=== PATIENT | female | born 1945 | race Caucasian/White ===

== ENCOUNTER → 2024-06-13 | Outpatient (CLI) | payer MEDICARE, SELFPAY | END | disposition home or self-care (01) | LOC: PSN 10:35 | PROVIDERS: PCP Family Medicine; Referring Provider Internal Medicine Cardiovascular Disease; Visit Provider Internal Medicine Cardiovascular Disease | DX: I49.49 Other premature depolarization (principal) | CPT/HCPCS: 93225; 93226 ==

== ENCOUNTER 2024-06-26 10:58 | Inpatient (IN) | payer MEDICARE, OTHER, SELFPAY ==
[2024-06-26] VITALS (14 sets, daily range): BP systolic 80–177; BP diastolic 64–94; PULSE 36–101; RESP 11–24; TEMP 36–36.9; O2SAT 92–99; BMI 22.5; BMI 22.3
--- NOTE | 2024-06-26 11:23 | EKG12_ITS ---
Test Reason : N/V/D Blood Pressure : */* mmHG Vent. Rate : 90 BPM Atrial Rate : * BPM P-R Int : * ms QRS Dur : 86 ms QT Int : 370 ms P-R-T Axes : * 30 224 degrees QTcB Int : 452 ms Atrial fibrillation Abnormal ECG Confirmed by LESLIE CELIS, SHAHLA ([id number]), electronic news gathering editor HERIBERTO NAPOLES ([id number]) on 06/27/2024 1:27:46 PM Referred By: Confirmed By: SHAHLA NELSON MD
[2024-06-26 11:33] LABS: Absolute Lymphocyte Count 0.99 X10^3/uL (0.83-4.51); Absolute Neutrophil Count 16.5 X10^3/uL (2.0-7.7); Basophil# 0.04 X10^3/uL; Basophil% 0.2 % (0-1); Hematocrit 35.7 % (37-47); Hemoglobin 11.9 g/dL (12.0-15.0); Lymphocyte # 0.99 X10^3/ul (0.83-4.51); Lymphocyte % 5.3 % (19-41); Mean Corp Hgb Conc 33.3 g/dL (32-36); Mean Corpuscular Hgb 29.4 pg (27.0-32.0); Mean Corpuscular Volume 88.1 fL (81-99); Mean Platelet Vol. 10.4 fl (6.2-12.0); Monocyte# 1.02 X10^3/uL; Monocyte% 5.5 % (0-10); NRBC Flagged by Analyzer 0 % (0-5); Neutrophil # 16.51 X10^3/uL (2.7-7.7); Neutrophil % 88.2 % (47-70); Platelet Count 479 K/mm3 (150-450); RBC Distribution Width CV 13.5 % (11.6-14.6); RBC Distribution Width SD 43.8 fl (35.1-43.9); Red Blood Count 4.05 M/mm3 (4.2-5.4); White Blood Count 18.7 K/mm3 (4.4-11.0)
[2024-06-26] MEDS: 0.9% Normal Saline (1000mL) 1,000 ML 999 ML IV ×2 (11:40→12:53)
[2024-06-26 11:46] LABS: Prothrombin Time (Protime)PT. 13.5 SECONDS (11.7-14.9)
[2024-06-26 11:47] LABS: Partial Thromboplast Time 23.8 Seconds (24.1-36.2)
[2024-06-26 11:55] LABS: ALB/GLOB Ratio 1.2 RATIO (0.9-2.4); AST(SGOT) 32 U/L (<=31); Alanine Aminotransfer ALT/SGPT 16 U/L (<=34); Albumin, Serum 3.9 g/dL (3.4-4.8); Alkaline Phosphatase 92 U/L (35-104); Anion Gap 14 (5-15); BUN 55 mg/dL (4-19); BUN/Creat Ratio 37.6 RATIO (10-20); Calcium,Total 11.7 mg/dL (7.6-11.0); Carbon Dioxide 25.9 mmol/L (21.0-32.0); Chloride 94 mmol/L (98-108); Creatinine, Serum 1.47 mg/dL (0.70-1.20); EST Glomerular Filtration Rate 36 (>60); Estimated Creatinine Clearance 28.38 ml/min (50-250); Globulin 3.4 g/dL (2.2-4.2); Glucose 187 mg/dL (70-99); Lipase 29 U/L (13-75); Potassium 3.4 mmol/L (3.3-5.1); Protein, Total 7.4 g/dL (5.9-8.4); Sodium Level 134 mmol/L (133-145); Total Bilirubin 0.79 mg/dL (0.00-1.30)
--- NOTE | 2024-06-26 11:55 | RAD_ITS ---
PROCEDURE: CHEST PA AND LATERAL 06/26/2024 REASON FOR EXAM: N/V Nausea. Vomiting. TECHNIQUE: Frontal and lateral views of the chest. COMPARISON: None FINDINGS: Cardiac silhouette upper limits of normal for size. No infiltrates. No pleural effusions. No pneumothorax. Mild thoracic spinal dextroscoliosis. No acute osseous abnormality seen. RAD/Chest PA and Lateral IMPRESSION: No radiographic evidence of active cardiopulmonary disease. Reading Location: [facility]
[2024-06-26 11:59] LABS: Troponin T High Sensitivity 87 ng/L (<=14)
--- NOTE | 2024-06-26 12:13 | CT_ITS ---
PROCEDURE: ABDOMEN/PELVIS W IV CONT ONLY 06/26/2024 REASON FOR EXAM: N/V Dehydration. TECHNIQUE: Abdomen and pelvis CT with intravenous contrast. Coronal and Sagittal reconstruction series were provided. PATIENT PREPARATION: Per protocol ORAL CONTRAST TYPE: None. CONTRAST: Isovue-300 VOLUME: 100 mL One or more dose reduction techniques were used (e.g., Automated exposure control, adjustment of the mA and/or kV according to patient size, use of iterative reconstruction technique. RADIATION DOSE SUMMARY: CTDlvol: 11.5 mGy DLP: 429.75 mGycm COMPARISON: None FINDINGS: Lung bases: Minimal linear atelectasis at the left lung base. Coronary artery calcification. Liver: Diffuse fatty infiltration. Gallbladder: Unremarkable Spleen: Normal size. Pancreas: Normal size without evidence of mass surrounding inflammation or ductal dilation. Adrenals: Unremarkable Kidneys: Punctate nonobstructive calculus in the upper pole calyx of the left kidney. Bladder: Unremarkable Reproductive Organs: Enlarged fibroid uterus. Bowel: Fecal impaction in the rectosigmoid colon. Appendix: The appendix is not identified. There is no inflammatory process identified in the right lower quadrant to suggest appendicitis. Lymph nodes: Unremarkable. Vasculature: Mild diffuse atherosclerotic calcifications are noted. There is evidence of a 4.5 cm by 3.8 cm partially calcified hypodensity in the right common femoral artery. This may represent an aneurysm. Clinical correlation recommended. Peritoneum / Retroperitoneum: Unremarkable Bones: Mild changes of the spine. CT/Abdomen/Pelvis W IV Cont ONLY IMPRESSION: Fecal impaction in the rectosigmoid colon. 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 Fecal impaction in the rectum. Soft tissue density seen in the region of the perineum. Questionable rectal prolapse. Clinical correlation recommended. Reading Location: [place] [address]
[2024-06-26 12:27] LABS: Lactic Acid 3.6 mmol/L (0.0-2.0)
[2024-06-26 13:17] LABS: Bacteria 0 SEEN /hpf (None Seen); Mucous, Urine 0 SEEN /hpf (<or=2+); Red Blood Cells-Urine 0 SEEN /hpf (0-5); Squamous Epithelial Cells - UA 0 SEEN /hpf (5-10); White Blood Cells 0 SEEN /hpf (0-5)
[2024-06-26 13:44] LABS: Color, Urine Yellow (Yellow); Glucose, Dipstick Normal (Normal); Ketone-Dipstick Negative (Negative); Leukocyte Esterase-Dipstick Negative /ul (Negative); Nitrite-Dipstick Negative (Negative); Occult Blood-Urine Negative /ul (Negative); Protein-Dipstick 30 mg/dl (Negative); Urine Bilirubin Dipstick Negative (Negative); Urine Clarity Clear (Clear); Urine Urobilinogen Normal (Normal)
--- NOTE | 2024-06-26 13:53 | EX.ED.DYSGE1 ---
HPI History of Present Illness Chief Complaint: Nausea/Vomiting Narrative Narrative: Patient is a 78-year-old female with past medical history of venous insufficiency, hyperlipidemia, GERD, diabetes who presented to the emergency department the chief complaint of abdominal pain. According to the patient's family member at bedside for the last several weeks to months she has had off and on appetite. He states that some days she will and eat other days she will not. He states that recently she was given a bowel prep. She states that she thought she cleaned out with this as she was having good bowel movements. He states that recently again she developed nausea and loss of appetite with abdominal pain therefore he brought her here for further evaluation management. [facility] Medical History Disorder of bone, unspecified Unintentional weight loss Fatigue White coat syndrome with hypertension Venous (peripheral) insufficiency Vasomotor rhinitis Unspecified essential hypertension Unspecified constipation Retinal hemorrhage Retinal edema Renal cyst Nonproliferative diabetic retinopathy of both eyes Laryngospasm Internal hemorrhoids without mention of complication Hyperlipidemia LDL goal <100 Hearing aid worn External hemorrhoids without mention of complication Esophageal reflux disease Diabetes mellitus with macular edema, both eyes Arthritis of both knees Aortic ejection murmur Home Medications ?Medication ?Instructions ?Recorded ?Last Taken ?Type aflibercept 2 mg/0.05 mL 2 mg intravitreal ONCE 05/17/24 Unknown History intravitreal solution for injection albuterol sulfate 90 mcg/actuation 2 puff inhalation Q4-6H PRN 05/17/24 Unknown History aerosol inhaler atorvastatin 20 mg tablet 20 mg PO QHS 05/17/24 Unknown History calcium carbonate-vitamin tab PO BID 05/17/24 Unknown History D2-minerals tablet docusate sodium 100 mg capsule 100 mg PO BID 05/17/24 Unknown History epinephrine 0.3 mg/0.3 mL 0.3 mg IM Q5-15M PRN 05/17/24 Unknown History injection, auto-injector fluticasone propionate 50 2 spray intranasal QDAY 05/17/24 Unknown History mcg/actuation nasal spray,suspension (Allergy Relief (fluticasone)) losartan 100 mg tablet 100 mg PO QDAY 05/17/24 Unknown History metformin 500 mg tablet 1,000 mg PO BID 05/17/24 Unknown History psyllium seed (sugar) oral powder 1 tbsp PO BID 05/17/24 Unknown History (Fiber Therapy (psyllium seed-sucrose) oral powder) metoprolol succinate 50 mg 50 mg PO QDAY #90 tabs 05/25/24 Unknown Rx tablet,extended release 24 hr amlodipine 2.5 mg tablet 2.5 mg PO QDAY #30 tabs 06/06/24 Unknown Rx hydrochlorothiazide 12.5 mg capsule 12.5 mg PO DAILY 06/26/24 Unknown History metoprolol succinate 25 mg 25 mg PO DAILY 06/26/24 Unknown History tablet,extended release 24 hr ondansetron HCl 4 mg tablet 4 mg PO Q8H PRN PRN nausea/vomiting 06/26/24 Unknown History Allergy/AdvReac Type Severity Reaction Status Date / Time lisinopril Allergy Severe Angioedema Verified 06/26/24 11:04 penicillin G Allergy Unknown PT UNSURE Verified 06/26/24 11:04 OF REACTION Sulfa (Sulfonamide Allergy Unknown PT UNSURE Verified 06/26/24 11:04 Antibiotics) OF REACTION doxycycline AdvReac Intermediate Nausea Verified 06/26/24 11:04 prednisone AdvReac Mild Other Verified 06/26/24 11:04 Family History Mother Stomach ulcer Father CAD (coronary artery disease) Emphysema, unspecified Grandmother Diabetes Aunt Diabetes Uncle Diabetes Surgical History History of surgical procedure on eye proper using laser History of tonsillectomy History of colonoscopy History of cataract extraction Social History Smoking Status: Never smoker alcohol intake: never substance use type: does not use ROS ROS ED ROS Narrative Constitutional: Denies fevers, chills, headaches, lightness, dizziness Eyes: Denies change in vision double vision blurry vision Cardiovascular: Denies chest pain Respiratory: Denies shortness of breath Abdomen: Complains of abdominal pain and nausea as noted above : Denies any urinary symptoms Neurological: Denies numbness, weakness, tingling Musculoskeletal: Denies back pain Skin: Denies any rashes or lesions EXAM Physical Exam Narrative Exam Narrative: General: Patient was lying in bed rest comfortably did not appear to be in acute distress Head: Atraumatic, normocephalic Eyes: PERRL bilaterally, EOMI bilateral, no conjunctival injection noted Neck: Soft, supple, trachea midline Cardiovascular: Regular rate and rhythm no murmurs gallops rubs noted Respiratory: Clear to auscultation bilaterally no rales rhonchi or wheezes noted Abdomen: Soft, nondistended, diffuse tenderness to palpation no rebound or guarding on exam Extremities: +5/5 strength noted in the bilateral upper and lower extremities Neurological: Patient following commands that she was at [facility] years 2024 Skin: Warm, dry, tact no rashes or lesions noted Const Vital Signs: 06/26/24 11:00 06/26/24 11:23 06/26/24 12:29 Temperature 96.8 F L Temperature Source Temporal Pulse Rate 36 L 101 H 95 Respiratory Rate 20 H 19 H 12 Blood Pressure 80/64 L 123/66 H Blood Pressure Mean 69 85 Pulse Ox 99 97 98 Oxygen Delivery Method Room Air Room Air 06/26/24 12:30 06/26/24 12:45 06/26/24 13:00 Temperature Temperature Source Pulse Rate 94 94 97 Respiratory Rate 11 L 19 H 24 H Blood Pressure 113/94 H 136/65 H 109/91 H Blood Pressure Mean 101 86 97 Pulse Ox 98 96 95 Oxygen Delivery Method Room Air 06/26/24 13:15 06/26/24 13:16 06/26/24 14:29 Temperature 97.9 F Temperature Source Oral Pulse Rate 88 92 81 Respiratory Rate 16 18 18 Blood Pressure 140/78 H 149/75 H Blood Pressure Mean 97 99 Pulse Ox 98 96 95 Oxygen Delivery Method Room Air Room Air MDM MDM MDM Narrative Medical decision making narrative: Patient is a 78-year-old female who presented to the emergency department chief complaint abdominal pain nausea and concern for dehydration. On the differential diagnose includes but not limited to bowel obstruction, pancreatitis, diverticulitis, tendinitis, constipation. Once workup is obtained reviewed she will be reevaluated. Patient CBC was significant leukocytosis of 18,000 and, patient's hemoglobin 11.9, platelet count was 479. Patient INR normal at 1, PT of 13.5. Patient sodium normal 134, [place] 3.4, creatinine was elevated of 1.47. Patient's lactic acid elevated 3.6, calcium elevated 11.7 with ionized calcium high at 1.40. Patient AST and ALT were 32 and 16 respectively, troponin was 87 with a delta troponin obtained at 78, EKG was reviewed and showed atrial fibrillation with a rate of 90 bpm. Patient is not on any blood thinning medications, lipase normal at 29, urinalysis reviewed showed no evidence of infection. Patient chest x-ray reviewed by myself by radiology which showed no acute cardiopulmonary processes. 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 Fecal impaction in the rectum soft tissue density seen in the region of the perineum questionable rectal prolapse clinical correlation recommended. Did perform rectal exam patient has soft stool noted in the rectal vault no concern for impaction and no concerns for rectal prolapse at this point time. Patient does have erythematous skin noted near the rectal region that appears to be irritated from bowel movements and she is noted to have hemorrhoids as well. At this point in time will discuss case with hospitalist for admission for new onset A-fib, given her white count of unknown etiology, lactic acidosis, needing of cleanout At 4:00 PM there is no identifiable source of infection therefore no antibiotics indicated at this point time. Reperfusion assessment was performed and the patient remains normotensive to hypertensive no vasopressors indicated. Discussed case with hospitalist Dr. Vazquez to accept patient for admission. After discussion with her we have no identifiable source infection at this point time therefore we will add a CT chest on without contrast and wait antibiotic dosing per the result of this. patient was notified as well as a family bedside they are agreeable this plan all question concerns answered. Lab Data Labs: Laboratory Results - last 24 hr 06/26/24 06/26/24 06/26/24 11:20 11:21 12:54 WBC 18.7 H RBC 4.05 L Hgb 11.9 L Hct 35.7 L MCV 88.1 MCH 29.4 MCHC 33.3 RDW Std Deviation 43.8 RDW Coeff of Chi 13.5 Plt Count 479 H MPV 10.4 Immature Gran % (Auto) 0.800 Neut % (Auto) 88.2 H Lymph % (Auto) 5.3 L [place] % (Auto) 5.5 Eos % (Auto) 0.0 Baso % (Auto) 0.2 Absolute Neuts (auto) 16.5 H Absolute Lymphs (auto) 0.99 Nucleated RBC % 0 PT 13.5 INR 1.0 APTT 23.8 L Sodium 134 Potassium 3.4 Chloride 94 L Carbon Dioxide 25.9 Anion Gap 14 BUN 55 H Creatinine 1.47 H Estim Creat Clear Calc 28.38 L Est GFR (MDRD) Non-Af 36 L BUN/Creatinine Ratio 37.6 H Glucose 187 H Lactic Acid 3.6 H* Calcium 11.7 H Ionized Calcium 1.40 H Total Bilirubin 0.79 AST 32 ALT 16 Alkaline Phosphatase 92 Troponin T High Sens 87 H* Troponin T Hi Sens 2 Hr Total Protein 7.4 Albumin 3.9 Globulin 3.4 Albumin/Globulin Ratio 1.2 Lipase 29 Urine Color Urine Clarity Urine pH Ur Specific [place] Urine Protein Urine Glucose (UA) Urine Ketones Urine Occult Blood Urine Nitrite Urine Bilirubin Urine Urobilinogen Ur Leukocyte Esterase Urine RBC Urine WBC Ur Squamous Epith Cells Urine Bacteria Hyaline Casts Urine Mucus 06/26/24 06/26/24 13:08 13:26 WBC RBC Hgb Hct MCV MCH MCHC RDW Std Deviation RDW Coeff of Chi Plt Count MPV Immature Gran % (Auto) Neut % (Auto) Lymph % (Auto) [place] % (Auto) Eos % (Auto) Baso % (Auto) Absolute Neuts (auto) Absolute Lymphs (auto) Nucleated RBC % PT INR APTT Sodium Potassium Chloride Carbon Dioxide Anion Gap BUN Creatinine Estim Creat Clear Calc Est GFR (MDRD) Non-Af BUN/Creatinine Ratio Glucose Lactic Acid Calcium Ionized Calcium Total Bilirubin AST ALT Alkaline Phosphatase Troponin T High Sens Troponin T Hi Sens 2 Hr 78 H* Total Protein Albumin Globulin Albumin/Globulin Ratio Lipase Urine Color Yellow Urine Clarity Clear Urine pH 5.0 Ur Specific [place] 1.020 Urine Protein 30 H Urine Glucose (UA) Normal Urine Ketones Negative Urine Occult Blood Negative Urine Nitrite Negative Urine Bilirubin Negative Urine Urobilinogen Normal Ur Leukocyte Esterase Negative Urine RBC 0 SEEN Urine WBC 0 SEEN Ur Squamous Epith Cells 0 SEEN Urine Bacteria 0 SEEN Hyaline Casts 0-5 SEEN Urine Mucus 0 SEEN Radiography Diagnostic Testing: Clinical Impression(s) from Imaging Studies Chest X-Ray 06/26/24 11:55 IMPRESSION: No radiographic evidence of active cardiopulmonary disease. Reading [facility] Abdom[facility]/Pelvis CT 06/26/24 12:13 IMPRESSION: Fecal impaction in the rectosigmoid colon. 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 Fecal impaction in the rectum. Soft tissue density seen in the region of the perineum. Questionable rectal prolapse. Clinical correlation recommended. Reading Location: [place] [id number] Discharge Plan Triage Chief Complaint: Nausea/Vomiting ED Provider: Jordy Mireles Dx/Rx/DC Orders Clinical Impression: Constipation, Acidosis, lactic, Type 2 ND (myocardial infarction) Prescriptions: No Action albuterol sulfate 90 mcg/actuation HFA aerosol inhaler 2 puff inhalation Q4-6H PRN losartan 100 mg tablet 100 mg PO QDAY metformin 500 mg tablet 1,000 mg PO BID atorvastatin 20 mg tablet 20 mg PO QHS epinephrine 0.3 mg/0.3 mL auto-injector 0.3 mg IM Q5-15M PRN Rx Instructions: do not exceed 3 doses per episode fluticasone propionate [Allergy Relief (fluticasone)] 50 mcg/actuation spray,suspension 2 spray intranasal QDAY Rx Instructions: administer into each nostril aflibercept 2 mg/0.05 mL solution 2 mg intravitreal ONCE docusate sodium 100 mg capsule 100 mg PO BID Fiber Therapy(psyl seed-sugar) Powder 1 tbsp PO BID calcium carb-vit D2-minerals Tablet PO BID metoprolol succinate 50 mg tablet extended release 24 hr 50 mg PO QDAY Qty: 90 3RF ondansetron HCl 4 mg tablet 4 mg PO Q8H PRN PRN (Reason: nausea/vomiting) hydrochlorothiazide 12.5 mg capsule 12.5 mg PO DAILY metoprolol succinate 25 mg tablet extended release 24 hr 25 mg PO DAILY amlodipine 2.5 mg tablet 2.5 mg PO QDAY Qty: 30 11RF Primary Care Provider: Adrian Hamm Referrals: Adrian Hamm MD [Primary Care Provider] - Print Language: Turkish Disposition Disposition: Acute Care [facility]
[2024-06-26 13:55] LABS: Hyaline Cast 0-5 SEEN /lpf (0-5)
[2024-06-26 14:09] LABS: Troponin T High Sens 2 HR 78 ng/L (<=14)
[2024-06-26 15:38] LABS: Reflex Lactate? Y
--- NOTE | 2024-06-26 16:35 | CT_ITS ---
PROCEDURE: CHEST WITHOUT CONTRAST 06/26/2024 REASON FOR EXAM: ELEVATED WBC UNKOWN ETIOLOGY TECHNIQUE: Chest CT without contrast. Coronal and Sagittal reconstruction series were provided. One or more dose reduction techniques were used (e.g., Automated exposure control, adjustment of the mA and/or kV according to patient size, use of iterative reconstruction technique RADIATION DOSE SUMMARY: CTDlvol: 6.3 mGy DLP: 228 mGycm COMPARISON: Same day chest radiograph and CT abdomen/pelvis FINDINGS: Lymph nodes: No significant lymphadenopathy. Heart and Vasculature: Mildly enlarged. Mild multivessel coronary calcifications, in addition to aortic valvular calcification. The ascending thoracic aorta measures 3.9 cm in diameter. Moderate aortic atherosclerosis. Lungs and Airways: Central airways are predominantly clear. Mild biapical scarring. No focal consolidation. There are few tiny pulmonary nodules, for example in the left upper lobe measuring 4 mm (series 4 image 70). Pleura: No pleural effusion. Upper Abdomen: See same day CT abdomen and pelvis for detailed report. Bones: Degenerative changes and rightward curvature of the thoracic spine. CT/Chest without Contrast IMPRESSION: 1. No acute cardiopulmonary abnormality. 2. Scattered pulmonary nodules measuring up to 4 mm in size. Consider CT ches t in 12 months if patient is high-risk per Fleischner society guidelines. 3. Ascending thoracic aorta measures 3.9 cm in diameter. 4. Mild cardiomegaly. Reading Location: [id number]
[2024-06-26 16:41] LABS: Troponin T High Sens 4 HR 72 ng/L (<=14)
[2024-06-26 16:44] LABS: Lactic Acid 1.3 mmol/L (0.0-2.0)
[2024-06-26] MEDS: DiphenhydrAMINE 50 MG/ML Syringe 25 MG IV (17:35)
[2024-06-26] MEDS: 0.9% Normal Saline (1000mL) 1,000 ML 100 ML IV ×2 (17:39→19:49)
--- NOTE | 2024-06-26 17:55 | HP.PCM.HOS_ITS ---
HPI - General General Date of Admission: 06/26/24 Date of Service: 06/26/24 Chief Complaint: N/V HPI Narrative PAULETTE FITZPATRICK, is a 78-year-old female with history of hypertension and diabetes who presented to [facility] ED 06/26/2024 with poor appetite and nausea and vomiting. Family reported she had had problems with somewhat poor appetite over the past weeks to months, recently was given a bowel prep and reports she seemed cleaned out was having good bowel movements but recently again she developed nausea and loss of appetite so she came in for further evaluation management. In the ED temperature 96.8, initial vital signs seem to been incorrect as repeat vital signs shortly after the initial set show a heart rate of 101 with a blood pressure 123/66, respiratory rate 19 and pulse ox 97% on room air. CBC did note white blood cell count of 18.7, hemoglobin 11.9 and platelet count of 479. BUN of 55 with a creatinine of 1.47 with no baseline available and a calcium of 11.7 again with no other available values. Lipase of 29 and lactic found to be 3.6 with a troponin of 87 which subsequently down trended to 72 and lactic acid resolved with IV fluids to 1.3. CT abd/pelvis was ordered and showed concern for fecal impaction and queried right femoral aneurysm. ED physician attempted to manually disimpact patient however there was soft stool in vault. Hospitalist contacted for admission due to all of the above. Patient evaluated with sons at bedside, patient has been having poor p.o., fatigue, nausea and vomiting over the past 3 months intermittently but worse over the past 1 week. Couple of days ago she was given a bowel prep but son reports he thinks that this was incomplete and patient has continued a problem since then. Patient adamantly denying abdominal pain at time my exam. Patient denies any fevers or chills, no cough or shortness of breath, denies any burning on urination. No focal numbness or weakness. Of note when I evaluated patient in room her upper lip appeared to be somewhat swollen. Son's report it has been like this for the past couple of hours with some addition of facial flushing and that was not like this earlier today. Patient said she thinks it is just because her lips are dry but it seems out of proportion to that. [facility] Medical History Disorder of bone, unspecified Unintentional weight loss Fatigue White coat syndrome with hypertension Venous (peripheral) insufficiency Vasomotor rhinitis Unspecified essential hypertension Unspecified constipation Retinal hemorrhage Retinal edema Renal cyst Nonproliferative diabetic retinopathy of both eyes Laryngospasm Internal hemorrhoids without mention of complication Hyperlipidemia LDL goal <100 Hearing aid worn External hemorrhoids without mention of complication Esophageal reflux disease Diabetes mellitus with macular edema, both eyes Arthritis of both knees Aortic ejection murmur Home Medications ?Medication ?Instructions ?Recorded ?Last Taken ?Type aflibercept 2 mg/0.05 mL 2 mg intravitreal ONCE 05/17 Unknown History intravitreal solution for injection albuterol sulfate 90 mcg/actuation 2 puff inhalation Q 4-6H PRN 05/17/24 Unknown History aerosol inhaler atorvastatin 20 mg tablet 20 mg PO QHS 05/17/24 Unknow n History calcium carbonate-vitamin tab PO BID 05/17/24 Unknown History D2-minerals tablet docusate sodium 100 mg capsule 100 mg PO BID 05/17/24 Unknown History epinephrine 0.3 mg/0.3 mL 0.3 mg IM Q5-15M PRN 5 Unknown History injection, auto-injector fluticasone propionate 50 2 spray intranasal QDAY 11/02 Unknown History mcg/actuation nasal spray,suspension (Allergy Relief (fluticasone)) losartan 100 mg tablet 100 mg PO QDAY 05/17/24 Unkn own History metformin 500 mg tablet 1,000 mg PO BID 05/17/24 Unk nown History psyllium seed (sugar) oral powder 1 tbsp PO BID Unknown History (Fiber Therapy (psyllium seed-sucrose) oral powder) metoprolol succinate 50 mg 50 mg PO QDAY #90 tabs 05/09 09/01 Unknown Rx tablet,extended release 24 hr amlodipine 2.5 mg tablet 2.5 mg PO QDAY #30 tabs 05/10 11/02 Unknown Rx hydrochlorothiazide 12.5 mg capsule 12.5 mg PO DAILY 0 06/26/24 Unknown History metoprolol succinate 25 mg 25 mg PO DAILY 06/26/24 Unk nown History tablet,extended release 24 hr ondansetron HCl 4 mg tablet 4 mg PO Q8H PRN PRN nausea /vomiting 06/26/24 Unknown History Allergy/AdvReac Type Severity Reaction Status Date / Time lisinopril Allergy Severe Angioedema Verified 06/26/24 11:04 penicillin G Allergy Unknown PT UNSURE Verified 06/26/24 11:04 OF REACTION Sulfa (Sulfonamide Allergy Unknown PT UNSURE Verified 06/26/24 11:04 Antibiotics) OF REACTION Iodinated Contrast Media (iv Allergy Swelling Verified 06/26/24 17:53 contrast) doxycycline AdvReac Intermediate Nausea Verified 06/26/24 11:04 prednisone AdvReac Mild Other Verified 06/26/24 11:04 Family History Mother Stomach ulcer Father CAD (coronary artery disease) Emphysema, unspecified Grandmother Diabetes Aunt Diabetes Uncle Diabetes Surgical History History of surgical procedure on eye proper using laser History of tonsillectomy History of colonoscopy History of cataract extraction Social History Smoking Status: Never smoker alcohol intake: never substance use type: does not use ROS ROS Narrative General: Denies fever/chills HENT: Denies headache, denies stuffy nose, denies sore throat EYES: Denies changes in vision Resp: Denies cough, denies shortness of breath Cardiac: Denies chest pain GI: Denies abdominal pain, poor p.o., nausea and vomiting : Reports some decreased urination Wednesday but this is resolved Extremity: Denies swelling in extremities, does have some upper lip swelling now MSK: Denies weakness but feels generally fatigued Neuro: Denies any numbness/tingling Heme: Denies any bleeding or bruising Skin: Denies rashes Psychiatric: No complaints voiced Vital Signs Vital Signs Vital Signs: 06/26/24 11:00 06/26/24 11:23 06/26/24 12:29 Temperature 96.8 F L Temperature Source Temporal Pulse Rate 36 L 101 H 95 Respiratory Rate 20 H 19 H 12 Blood Pressure 80/64 L 123/66 H Blood Pressure Mean 69 85 Pulse Ox 99 97 98 Oxygen Delivery Method Room Air Room Air 06/26/24 12:30 06/26/24 12:45 06/26/24 13:00 Temperature Temperature Source Pulse Rate 94 94 97 Respiratory Rate 11 L 19 H 24 H Blood Pressure 113/94 H 136/65 H 109/91 H Blood Pressure Mean 101 86 97 Pulse Ox 98 96 95 Oxygen Delivery Method Room Air 06/26/24 13:15 06/26/24 13:16 06/26/24 14:29 Temperature 97.9 F Temperature Source Oral Pulse Rate 88 92 81 Respiratory Rate 16 18 18 Blood Pressure 140/78 H 149/75 H Blood Pressure Mean 97 99 Pulse Ox 98 96 95 Oxygen Delivery Method Room Air Room Air 06/26/24 16:00 06/26/24 17:39 Temperature Temperature Source Pulse Rate 92 84 Respiratory Rate 18 20 H Blood Pressure 144/81 H 155/81 H Blood Pressure Mean 102 105 Pulse Ox 92 96 Oxygen Delivery Method Room Air Room Air Weight Weight: 61.5 kg Body Mass Index (BMI) 22.5 Physical Exam Narrative General: Alert, no apparent distress HEENT: Atraumatic, patient has some swelling of her upper lip with no swelling of the lower lip and some flushing of cheeks, does not appear to have any swelling of the tongue or posterior pharynx at this time, no swallowing complaints Eyes: Anicteric, normal conjunctiva, extraocular movements grossly intact Neck: Supple Respiratory: Clear to auscultation bilaterally, normal respiratory effort Cardiovascular: Irregularly irregular GI: Soft, patient denies tenderness, no distention, no rebound or rigidity Extremities: Possibly some trace lower extremity edema Musculoskeletal: Moving all extremities Neuro: No overt focal neurological deficits Skin: Some flushing of cheeks Psych: Cooperative Results Lab / Micro Data 06/26/24 11:20 06/26/24 11:20 Labs: Laboratory Results - last 24 hr 06/26/24 11:20: WBC 18.7 H, RBC 4.05 L, Hgb 11.9 L, Hct 35.7 L, MCV 88.1, MCH 29.4, MCHC 33.3, RDW Std Deviation 43.8, RDW Coeff of Chi 13.5, Plt Count 479 H, MPV 10.4, Immature Gran % (Auto) 0.800, Neut % (Auto) 88.2 H, Lymph % (Auto) 5.3 L, [place] % (Auto) 5.5, Eos % (Auto) 0.0, Baso % (Auto) 0.2, Absolute Neuts (auto) 16.5 H, Absolute Lymphs (auto) 0.99, Nucleated RBC % 0, PT 13.5, INR 1.0, APTT 23.8 L, Sodium 134, Potassium 3.4, Chloride 94 L, Carbon Dioxide 25.9, Anion Gap 14, BUN 55 H, Creatinine 1.47 H, Estim Creat Clear Calc 28.38 L, Est GFR (MDRD) Non-Af 36 L, BUN/Creatinine Ratio 37.6 H, Glucose 187 H, Calcium 11.7 H, Total Bilirubin 0.79, AST 32, ALT 16, Alkaline Phosphatase 92, Troponin T High Sens 87 H*, Total Protein 7.4, Albumin 3.9, Globulin 3.4, Albumin/Globulin Ratio 1.2, Lipase 29 06/26/24 11:21: Lactic Acid 3.6 H* 06/26/24 12:54: Ionized Calcium 1.40 H 06/26/24 13:08: Urine Color Yellow, Urine Clarity Clear, Urine pH 5.0, Ur Specific L[place] 1.020, Urine Protein 30 H, Urine Glucose (UA) Normal, Urine Ketones Negative, Urine Occult Blood Negative, Urine Nitrite Negative, Urine Bilirubin Negative, Urine Urobilinogen Normal, Ur Leukocyte Esterase Negative, Urine RBC 0 SEEN, Urine WBC 0 SEEN, Ur Squamous Epith Cells 0 SEEN, Urine Bacteria 0 SEEN, Hyaline Casts 0-5 SEEN, Urine Mucus 0 SEEN 06/26/24 13:26: Troponin T Hi Sens 2 Hr 78 H* 06/26/24 15:27: Troponin T Hi Sens 4Hr 72 H* 06/26/24 16:13: Lactic Acid 1.3 Micro: Microbiology 06/26/24 11:37 Mucosa - Nose SARS-CoV-2, Influenza & RSV (PCR) - Final Imaging Radiology Impression Chest X-Ray 06/26/24 11:55 IMPRESSION: No radiographic evidence of active cardiopulmonary disease. Reading [facility]dom[facility]/Pelvis CT 06/26/24 12:13 IMPRESSION: Fecal impaction in the rectosigmoid colon. 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 Fecal impaction in the rectum. Soft tissue density seen in the region of the perineum. Questionable rectal prolapse. Clinical correlation recommended. Reading Location: [facility] 06/26/24 16:35 IMPRESSION: 1. No acute cardiopulmonary abnormality. 2. Scattered pulmonary nodules measuring up to 4 [address] in size[address] Consider CT chest in 12 months if patient is high-risk per Fleischner society guidelines. 3. Ascending thoracic aorta measures 3.9 cm in diameter. 4. Mild cardiomegaly. Reading Location: [id number] Assessment & Plan Assessment/Plan (1) Nausea and vomiting: PLAN: Plan # Nausea vomiting and poor p.o. intake -Patient has had intermittent nausea, vomiting, poor p.o. intake over the past couple of months -UA negative - Did have elevated white blood cell count but unclear significance as no nidus of infection identified, will check Pro-Saman - CT queried fecal impaction in rectosigmoid colon, patient had attempted disimpaction by ED physician but was not able to get far enough to appreciate the impaction and only found soft stool, he also did not note rectal prolapse on exam - Will proceed with enema given manual disimpaction failed but CT is suggestive of impaction, this may improve the nausea and vomiting - If it does not and workup otherwise unrevealing may need to consider GI consult # Suspected iodinated contrast allergic reaction - Patient evaluated in ED and had some upper lip swelling with some flushing of cheeks, this was not present when she arrived but happened after she had her CT with contrast and the only other thing she received was IV fluids - Had nurse reexamine her, she had seen her couple of hours earlier and noted that she now had the flushing of the cheeks and may be very slight worsening of the upper lip swelling but not significantly so - Patient protecting airway managing secretions - Given Benadryl, order placed for IV fluids, famotidine, IV Methylpred - Listed allergy to prednisone, is reported as jittery and family reports that she previously said she had a difficult time walking when she had prednisone but given patient's acute reaction do feel patient would benefit from x 1 administration #?New onset A-fib - EKG appeared to be A-fib versus flutter, had recent Holter monitor which was negative -Had previous echo that showed increased gradient concerning for HOCM, patient awaiting cardiac MRI in outpatient basis -Will check TSH - Will place order for limited echo to assess wall motion and EF given this acute change - Will give full dose Lovenox, will likely need anticoagulation on DC with risk- benefit discussion #Hypercalcemia - Calcium elevated 11.7 and ionized calcium also elevated - Unclear if this is due to her dehydration or if this may be causing or contributing to symptoms - Aggressive hydration - Check PTH, vitamin D, Phos, magnesium - Further management pending results and progress #?HUSSAIN - No values available in our system but BUN 55 and creatinine 1.47, patient appears clinically dehydrated and lactic acid improved significantly with IV hydration - Avoid nephrotoxic agents #Pulmonary nodules - Scattered pulmonary nodules up to 4 mm inside, can consider chest CT in 12 months - If no other cause for patient's hypercalcemia seen in this does not resolve with adequate hydration we need to consider further discussion or workup # Elevated troponin - Troponin initially 87 down trended to 72, lactic acid also been elevated and normalized with IV fluids - Patient denies any chest pain, suspect this is secondary to demand with patient's dehydration on arrival # Right groin abnormality -CT abdomen pelvis queried aneurysm in the right common femoral artery, discussed with vascular surgery who will see in consultation, no acute management - Patient did eventually report that fluid had been taken from this before by Dr. Vasquez many years ago at the [facility] and they were still unsure what it was, no records available for us for review # Concern for HOCM -Previous echo that queried increased gradient, patient following with cardiology -Awaiting cardiac MRI -Will continue home medications #DVT ppx: Lovenox as above Velma Vazquez MD Time spent in the patient's overall evaluation, decision-making process, review of diagnostic data, adjustment of management, discussion with other providers, nursing and ancillary staff involved in patient's care documentation, 86 Minutes Charges/Coding Visit Charges Inpatient E&M: 98594 Init Hosp L3
[2024-06-26 18:47] LABS: Magnesium 2.3 mg/dL (1.5-2.2); Procalcitonin 0.16 ng/mL (<=0.10)
[2024-06-26] MEDS: 0.9% Saline Lock 10 ML Syringe IV (19:49)
--- NOTE | 2024-06-26 20:16 | PCM.HOSP.N ---
Hospitalist Note Went to evaluate patient at bedside to assess swelling and erythema, patient's erythema face significantly improved, still has swelling of the upper lip but is primarily central and possibly a little bit better towards the outer corners of the lip which was confirmed by son who was present at bedside. Patient does not have any erythema or swelling roof of mouth, tongue appears unchanged, no pain or swelling appreciated on palpation of submandibular space or neck. Patient herself says she does not feel any different or worse than earlier, appears transfer order still not released so patient still to get the Solu-Medrol and famotidine, discussed with charge nurse and these are to be given. Will also add continuous pulse ox and advised for close monitoring overnight to verify continued improvement
--- NOTE | 2024-06-26 20:19 | ECHOL_ITS ---
Reason For Study Reason For Study: ATRIAL FIBRILLATION Procedure This was a limited 2D transthoracic echocardiogram. The study was technically difficult. Exam performed portable in patient room. Left Ventricle Normal LV size. Left ventricular systolic function is normal. The left ventricular ejection fraction is 70 %. No regional wall motion abnormalities noted. Right Ventricle Normal RV size. Normal systolic function. Atria Normal left atrium. Normal right atrium. Mitral Valve There is mild mitral annular calcification. Tricuspid Valve Normal tricuspid valve. Mild (1+) tricuspid valve insufficiency. Pulmonary artery systolic pressure is 34 mmHg. Aortic Valve Trisinus/trileaflet aortic valve. Mild focal aortic valve calcification. Pulmonic Valve Normal pulmonic valve. Great Vessels Normal aortic root. Pericardium/Pleural No pericardial effusion. MMode/2D Measurements & Calculations LVIDd: 3.3 cm IVSd: 1.1 cm LVOT diam: 1.9 cm LVIDs: 1.8 cm LVPWd: 1.1 cm LVOT area: 2.7 cm2 RVDd: 4.0 cm FS: 45.3 % LAV(MOD-bp): 28.0 ml LVAd ap4: 21.1 cm2 LVAd ap2: 19.2 cm2 LAV(MOD-bp) Indexed: 16.4 ml/m2 LVLd ap4: 7.9 cm LVLd ap2: 7.3 cm LAV(MOD-sp2): 33.0 ml EDV(MOD-sp4): 47.7 ml EDV(MOD-sp2): 41.3 ml LAV(MOD-sp4): 24.1 ml EDV(sp4-el): 47.9 ml EDV(sp2-el): 42.7 ml LVAs ap4: 10.3 cm2 LVAs ap2: 8.5 cm2 LVLs ap4: 6.5 cm LVLs ap2: 6.0 cm ESV(MOD-sp4): 14.2 ml ESV(MOD-sp2): 10.3 ml ESV(sp4-el): 13.9 ml ESV(sp2-el): 10.2 ml EF(MOD-sp4): 70.3 % EF(MOD-sp2): 75.1 % EF(sp4-el): 70.9 % SV(MOD-sp4): 33.5 ml SV(MOD-sp2): 31.0 ml SV(sp4-el): 34.0 ml SI(MOD-sp4): 19.6 ml/m2 SI(MOD-sp2): 18.1 ml/m2 Ao sinus diam: 2.9 cm LA A4 area: 11.3 cm2 LA dimension(2D): 2.6 cm RA A4 area: 9.4 cm2 Doppler Measurements & Calculations MV V2 max: 133.9 cm/sec Ao V2 max: 196.0 cm/sec LV V1 max: 91.5 cm/sec MV max P.2 mmHg Ao max P.4 mmHg LV V1 max P.3 mmHg MV V2 mean: 100.4 cm/sec SHARIFA(V,D): 1.3 cm2 MV mean P.2 mmHg MV V2 VTI: 29.2 cm TR max zahra: 272.7 cm/sec TR max P.7 mmHg ECHO/Echo, Limited Study Interpretation Summary Normal LV size. Left ventricular systolic function is normal. The left ventricular ejection fraction is 70 %. Mild focal aortic valve calcification. Ordering Physician: Velma Vazquez Performed By: Roxie Larson RDCS
[2024-06-26] MEDS: Famotidine 200 MG/20 ML MDV 20 MG in 0.9% Normal Saline (Pres. free 8 ML 300 MG IV (20:30)
[2024-06-26] MEDS: MethylPREDNISolone 125 MG/2 ML Vial IV (20:31)
[2024-06-26 21:48] LABS: PTHIN 15 pg/mL (11-61)
[2024-06-26 21:52] LABS: Phosphorus 1.2 mg/dL (2.7-4.5)
[2024-06-26] MEDS: Docusate Sodium 100 MG Capsule PO (22:00)
[2024-06-26] MEDS: Atorvastatin Calcium 20 MG Tablet PO (22:01)
[2024-06-26] MEDS: Enoxaparin 100 MG/ML Syringe 60 MG SC (22:01)
[2024-06-26 22:39] LABS: Bedside Glucose 116 mg/dL (74-106)
[2024-06-27 02:30] VITALS: BP 143/75; PULSE 86; RESP 19; TEMP 36.6; O2SAT 96
[2024-06-27] MEDS: 0.9% Normal Saline (1000mL) 1,000 ML 100 ML IV ×2 (05:45→16:09)
[2024-06-27 06:34] LABS: Absolute Lymphocyte Count 0.65 X10^3/uL (0.83-4.51); Absolute Neutrophil Count 11.1 X10^3/uL (2.0-7.7); Basophil# 0.02 X10^3/uL; Basophil% 0.2 % (0-1); Hematocrit 28.6 % (37-47); Hemoglobin 9.8 g/dL (12.0-15.0); Lymphocyte # 0.65 X10^3/ul (0.83-4.51); Lymphocyte % 5.4 % (19-41); Mean Corp Hgb Conc 34.3 g/dL (32-36); Mean Corpuscular Hgb 30.2 pg (27.0-32.0); Mean Platelet Vol. 10.5 fl (6.2-12.0); Monocyte# 0.16 X10^3/uL; Monocyte% 1.3 % (0-10); NRBC Flagged by Analyzer 0 % (0-5); Neutrophil % 92.6 % (47-70); Platelet Count 340 K/mm3 (150-450); RBC Distribution Width CV 13.5 % (11.6-14.6); RBC Distribution Width SD 43.8 fl (35.1-43.9); Red Blood Count 3.25 M/mm3 (4.2-5.4)
[2024-06-27 07:03] LABS: Magnesium 1.8 mg/dL (1.5-2.2); Thyroid Stim Hormone (TSH) 0.348 uIU/mL (0.300-4.200)
[2024-06-27 07:05] LABS: AST(SGOT) 22 U/L (<=31); Alanine Aminotransfer ALT/SGPT 13 U/L (<=34); Albumin, Serum 3.1 g/dL (3.4-4.8); Alkaline Phosphatase 75 U/L (35-104); Anion Gap 13 (5-15); BUN 40 mg/dL (4-19); BUN/Creat Ratio 44.6 RATIO (10-20); Bilirubin, Direct 0.25 mg/dL (0.00-0.30); Calcium,Total 9.4 mg/dL (7.6-11.0); Carbon Dioxide 20.1 mmol/L (21.0-32.0); Chloride 105 mmol/L (98-108); EST Glomerular Filtration Rate 65 (>60); Estimated Creatinine Clearance 48.23 ml/min (50-250); Globulin 2.7 g/dL (2.2-4.2); Glucose 146 mg/dL (70-99); Potassium 3.1 mmol/L (3.3-5.1); Protein, Total 5.9 g/dL (5.9-8.4); Sodium Level 138 mmol/L (133-145); Total Bilirubin 0.48 mg/dL (0.00-1.30)
--- NOTE | 2024-06-27 07:39 | PCM.PN.HOSP ---
Reason for Visit Reason for Visit: Diagnoses Nausea with vomiting, unspecified (06/26/24) Objective Data Objective Data Vital Signs: Vital Signs Temp Pulse Resp BP Pulse Ox O2 Del Method 98 F 86 19 H 143/75 H 96 Room Air 06/27/24 02:30 06/27/24 02:30 06/27/24 02:30 06/27/24 02:30 06/27/24 02:30 06/27/24 02:30 Oxygen Delivery Method Room Air Weight: 62.8 kg Body Mass Index (BMI) 22.3 Intake & Output: Intake and Output for Last 24 Hours 06/25/24 06/26/24 06/27/24 23:59 23:59 23:59 Intake Total 2226.67 / 2286.67 1053.33 / 1053.33 Balance 2226.67 / 2286.67 1053.33 / 1053.33 Lab / Micro Data 06/27/24 06:07 06/27/24 06:07 Labs: Laboratory Results - last 24 hr 06/26/24 11:20: WBC 18.7 H, RBC 4.05 L, Hgb 11.9 L, Hct 35.7 L, MCV 88.1, MCH 29.4, MCHC 33.3, RDW Std Deviation 43.8, RDW Coeff of Chi 13.5, Plt Count 479 H, MPV 10.4, Immature Gran % (Auto) 0.800, Neut % (Auto) 88.2 H, Lymph % (Auto) 5.3 L, [place] % (Auto) 5.5, Eos % (Auto) 0.0, Baso % (Auto) 0.2, Absolute Neuts (auto) 16.5 H, Absolute Lymphs (auto) 0.99, Nucleated RBC % 0, PT 13.5, INR 1.0, APTT 23.8 L, Sodium 134, Potassium 3.4, Chloride 94 L, Carbon Dioxide 25.9, Anion Gap 14, BUN 55 H, Creatinine 1.47 H, Estim Creat Clear Calc 28.38 L, Est GFR (MDRD) Non-Af 36 L, BUN/Creatinine Ratio 37.6 H, Glucose 187 H, Calcium 11.7 H, Phosphorus 1.2 L*, Total Bilirubin 0.79, AST 32, ALT 16, Alkaline Phosphatase 92, Troponin T High Sens 87 H*, Total Protein 7.4, Albumin 3.9, Globulin 3.4, Albumin/Globulin Ratio 1.2, Lipase 29, PTH Intact 15 06/26/24 11:21: Lactic Acid 3.6 H* 06/26/24 11:29: Magnesium 2.3 H, Procalcitonin 0.16 H 06/26/24 12:54: Ionized Calcium 1.40 H 06/26/24 13:08: Urine Color Yellow, Urine Clarity Clear, Urine pH 5.0, Ur Specific [place] 1.020, Urine Protein 30 H, Urine Glucose (UA) Normal, Urine Ketones Negative, Urine Occult Blood Negative, Urine Nitrite Negative, Urine Bilirubin Negative, Urine Urobilinogen Normal, Ur Leukocyte Esterase Negative, Urine RBC 0 SEEN, Urine WBC 0 SEEN, Ur Squamous Epith Cells 0 SEEN, Urine Bacteria 0 SEEN, Hyaline Casts 0-5 SEEN, Urine Mucus 0 SEEN 06/26/24 13:26: Troponin T Hi Sens 2 Hr 78 H* 06/26/24 15:27: Troponin T Hi Sens 4Hr 72 H* 06/26/24 16:13: Lactic Acid 1.3 06/26/24 22:05: POC Glucose 116 H 06/27/24 06:07: WBC 12.0 H, RBC 3.25 L, Hgb 9.8 L, Hct 28.6 L, MCV 88.0, MCH 30.2, MCHC 34.3, RDW Std Deviation 43.8, RDW Coeff of Chi 13.5, Plt Count 340, MPV 10.5, Immature Gran % (Auto) 0.500, Neut % (Auto) 92.6 H, Lymph % (Auto) 5.4 L, [place] % (Auto) 1.3, Eos % (Auto) 0.0, Baso % (Auto) 0.2, Absolute Neuts (auto) 11.1 H, Absolute Lymphs (auto) 0.65 L, Nucleated RBC % 0, Sodium 138, Potassium 3.1 L, Chloride 105, Carbon Dioxide 20.1 L, Anion Gap 13, BUN 40 H, Creatinine 0.90, Estim Creat Clear Calc 48.23 L, Est GFR (MDRD) Non-Af 65, BUN/Creatinine Ratio 44.6 H, Glucose 146 H, Calcium 9.4, Magnesium 1.8, Total Bilirubin 0.48, Direct Bilirubin 0.25, AST 22, ALT 13, Alkaline Phosphatase 75, Total Protein 5.9, Albumin 3.1 L, Globulin 2.7, TSH 0.348 Micro: Microbiology 06/26/24 11:37 Mucosa - Nose SARS-CoV-2, Influenza & RSV (PCR) - Final Radiography Diagnostic Testing: Radiology Impression Chest X-Ray 06/26/24 11:55 IMPRESSION: No radiographic evidence of active cardiopulmonary disease. Reading [facility] Abdomen/Pelvis CT 06/26/24 12:13 IMPRESSION: Fecal impaction in the rectosigmoid colon. 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 Fecal impaction in the rectum. Soft tissue density seen in the region of the perineum. Questionable rectal prolapse. Clinical correlation recommended. Reading Location: [facility] 06/26/24 16:35 IMPRESSION: 1. No acute cardiopulmonary abnormality. 2. Scattered pulmonary nodules measuring up to 4 mm in size. Consider CT chest in 12 months if patient is high-risk per Fleischner society guidelines. 3. Ascending thoracic aorta measures 3.9 cm in diameter. 4. Mild cardiomegaly. Reading Location: [id number] Assessment & Plan Assessment/Plan (1) Nausea and vomiting: (2) Constipation: (3) Adverse drug reaction: (4) Toxic metabolic encephalopathy: PLAN: Plan Nausea/vomiting/poor p.o. intake - Has improved considerably - Patient has responded to bowel regimen and enema - No further nausea and vomiting - Continue diet as ordered Adverse reaction to iodinated contrast - Patient with flushed cheeks and upper lip swelling - Still with some mild presents of this that was not present on presentation but occurred after she received IV contrast - Was given IV Benadryl, famotidine, and methylprednisolone - Continue to monitor but clinically seems to be improving Toxic/metabolic encephalopathy - Per family has had this reaction previously to methylprednisolone - Patient with significant agitation and confusion - Would very much like to avoid any medications for her agitation and confusion as I am concerned that this could make her worse - Family states she has significant sensitivity to medications - I have asked nursing to please try to redirect her and obtain a sitter for tonight and avoid Haldol, risperidone, Ativan, etc. and please just try to use redirection as long as her safety is not in question - I will remove any aggravating devices to decrease her agitation ?new onset A-fib - Patient currently in sinus rhythm - Will need further evaluation tomorrow as patient will currently not even let me evaluate her and we had to take her telemetry off - TSH is within normal limits - Echocardiogram showed an EF of 70% with mild focal aortic valve calcification but no other significant abnormalities. - Patient received 1 dose of Lovenox we will hold off on any further intervention currently History of HOCM - Echocardiogram stable - Awaiting cardiac MRI - Continue ongoing outpatient follow-up with cardiology Essential hypertension/hyperlipidemia - Continue amlodipine 2.5 mg daily - Continue metoprolol 50 mg daily - Continue home statin Right groin cystic mass - Vascular surgery following - Does not appear to be vascular in origin and consistent with a lymphocele - No further intervention at this time Hypercalcemia - Appears related to dehydration - Calcium is normal today - Vitamin D levels pending HUSSAIN - Resolved DM-2 - Accu-Cheks as ordered - SSI - Cardiac/carb controlled diet Diabetic retinopathy - Restart home medication at discharge Seasonal allergies - Continues nasal spray DVT prophylaxis - Continue Lovenox CODE STATUS - DNR CCA okay for short-term intubation Charges/Coding Visit Charges Inpatient E&M: 24805 Subs Hosp L2
[2024-06-27 07:56] VITALS: O2SAT 96
[2024-06-27 08:30] VITALS: BP 158/88; PULSE 92; RESP 17; TEMP 36.6; O2SAT 99
[2024-06-27] MEDS: Potassium Phosphate 40 MM in 0.9% Normal Saline (500mL Bag) 500 ML 62.5 MM IV (09:17)
[2024-06-27] MEDS: Docusate Sodium 100 MG Capsule PO ×2 (09:31→20:41)
[2024-06-27 09:32] VITALS: PULSE 95
[2024-06-27] MEDS: Metoprolol(XL)Succ 50 MG Tablet PO (09:32)
[2024-06-27] MEDS: amLODIPine 2.5 MG Tablet PO (09:32)
[2024-06-27] MEDS: Fluticasone 0.05% 1 SPRAY NASAL.SRY 2 SPRAY NASAL (09:33)
[2024-06-27 09:39] LABS: Bedside Glucose 142 mg/dL (74-106)
[2024-06-27] MEDS: Enoxaparin 100 MG/ML Syringe 60 MG SC (09:41)
--- NOTE | 2024-06-27 11:03 | ADUL_ITS ---
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 SFA prox, 0.66 x 0.64 cm, 85.3 cm/sec. Profunda A, 85.4 cm/sec. Nonvascularized structure noted in the right scott that measures 4.01 x 4.45 x 5.45 cm. Preliminary report given to Tere ANDERSON. VL/US Art Duplex Unilat Lower Ext Interpretation Summary Patent right femoral vessels with no evidence of fistula or pseudoaneurysm. Nonvascularized, cystic structure noted that measures 4.01 x 4.45 x 5.45 cm. Ordering Physician: Tere Dickey Referring Physician: Yared Mejia Performed By: Tammy Mahan RVT
--- NOTE | 2024-06-27 11:04 | CON.PCM.SX_ITS ---
Assessment & Plan Assessment/Plan (1) Lymphocele: PLAN: Plan Reviewed CTA images; do appreciate a cystic mass in the R groin but it is not associated with the femoral artery and does not appear to be associated with the vein either. There is no femoral artery aneurysm. Obtained a duplex to correlate; did not show any aneurysm, no vascularized flow through the mass, appears consistent with lymphocele. No intervention indicated at this time. HPI Consult Data Date of Consult: 06/27/24 HPI Narrative HPI Narrative: PAULETTE FITZPATRICK, is a 78 F who presented to [facility] ER with abdominal pain, nausea, and reduced appetite with workup revealing of new-onset Afib, leukocytosis of unknown etiology, and lactic acidosis for which she was admitted for further management. 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 She reports a history of prior cystic mass in this region which she remotely (over 10 years ago) had aspiration which reportedly was unrevealing and ultimately this was felt to be benign. She has had this palpable lump here for many years, she reports it fluctuates in size throughout the day, it is not painful. She denies any history of surgery or injury to this area. [facility] Medical History Disorder of bone, unspecified Unintentional weight loss Fatigue White coat syndrome with hypertension Venous (peripheral) insufficiency Vasomotor rhinitis Unspecified essential hypertension Unspecified constipation Retinal hemorrhage Retinal edema Renal cyst Nonproliferative diabetic retinopathy of both eyes Laryngospasm Internal hemorrhoids without mention of complication Hyperlipidemia LDL goal <100 Hearing aid worn External hemorrhoids without mention of complication Esophageal reflux disease Diabetes mellitus with macular edema, both eyes Arthritis of both knees Aortic ejection murmur Home Medications ?Medication ?Instructions ?Recorded ?Last Taken ?Type aflibercept 2 mg/0.05 mL 2 mg intravitreal ONCE EYES 05/17/24 Unknown History intravitreal solution for injection albuterol sulfate 90 mcg/actuation 2 puff inhalation Q 4-6H PRN SOB 05/17/24 Unknown History aerosol inhaler atorvastatin 20 mg tablet 20 mg PO QHS CHOLESTEROL 11/02 Unknown History calcium carbonate-vitamin tab PO BID SUPPLEMENT Unknown History D2-minerals tablet docusate sodium 100 mg capsule 100 mg PO BID STOOL SOP FTENER 05/17/24 Unknown History epinephrine 0.3 mg/0.3 mL 0.3 mg IM Q5-15M PRN 5 Unknown History injection, auto-injector bronchodilation fluticasone propionate 50 2 spray intranasal QDAY SINU SES 05/17/24 Unknown History mcg/actuation nasal spray,suspension (Allergy Relief (fluticasone)) losartan 100 mg tablet 100 mg PO QDAY BLOOD PRESSUR E 05/17/24 Unknown History metformin 500 mg tablet 1,000 mg PO BID DIABETES 11/02 Unknown History psyllium seed (sugar) oral powder 1 tbsp PO BID SUPPLE MENT 05/17/24 Unknown History (Fiber Therapy (psyllium seed-sucrose) oral powder) metoprolol succinate 50 mg 50 mg PO QDAY BLOOD PRESSUR E #90 05/25/24 Unknown Rx tablet,extended release 24 hr tabs amlodipine 2.5 mg tablet 2.5 mg PO QDAY BLOOD PRESSUR E #30 06/06/24 Unknown Rx tabs hydrochlorothiazide 12.5 mg capsule 12.5 mg PO DAILY U NKNOWN 06/26/24 Unknown History metoprolol succinate 25 mg 25 mg PO DAILY BLOOD PRESSU RE 06/26/24 Unknown History tablet,extended release 24 hr ondansetron HCl 4 mg tablet 4 mg PO Q8H PRN PRN nausea /vomiting 06/26/24 Unknown History Allergy/AdvReac Type Severity Reaction Status Date / Time lisinopril Allergy Severe Angioedema Verified 06/26/24 11:04 penicillin G Allergy Unknown PT UNSURE Verified 06/26/24 11:04 OF REACTION Sulfa (Sulfonamide Allergy Unknown PT UNSURE Verified 06/26/24 11:04 Antibiotics) OF REACTION Iodinated Contrast Media (iv Allergy Swelling Verified 06/26/24 17:53 contrast) doxycycline AdvReac Intermediate Nausea Verified 06/26/24 11:04 prednisone AdvReac Mild Other Verified 06/26/24 11:04 Family History Mother Stomach ulcer Father CAD (coronary artery disease) Emphysema, unspecified Grandmother Diabetes Aunt Diabetes Uncle Diabetes Surgical History History of surgical procedure on eye proper using laser History of tonsillectomy History of colonoscopy History of cataract extraction Social History Smoking Status: Never smoker alcohol intake: never substance use type: does not use Physical Exam Const alert, oriented x3 and no apparent distress General Appearance: cooperative and comfortable HEENT normocephalic, head/scalp atraumatic, hearing grossly normal bilaterally, external ears normal and external nose normal Mouth: lip abnormal swelling (swollen upper lip, worse centrally) Eyes EOMs intact bilaterally General Eye: normal appearance of both eyes Neck General: normal visual inspection and trachea midline Resp normal respiratory effort, normal air movement, no retractions and no use of accessory muscles Effort and Inspection: able to speak in complete sentences Cardio Rate: regular rate Rhythm: regular rhythm Extremity Peripheral Pulses: Yes pulses 2+ throughout Skin no rashes or lesions noted Neuro oriented x3, CN's II-XII intact bilaterally and moves all extremities Psych mental status grossly normal Appearance: grossly normal Attitude: calm and engaged Activity / Motor Behavior: appropriate eye contact Speech: normal speech Mood & Affect: euthymic mood Lab / Micro Data 06/27/24 06:07 06/27/24 06:07 Labs: Laboratory Results - last 24 hr 06/26/24 11:20: WBC 18.7 H, RBC 4.05 L, Hgb 11.9 L, Hct 35.7 L, MCV 88.1, MCH 29.4, MCHC 33.3, RDW Std Deviation 43.8, RDW Coeff of Chi 13.5, Plt Count 479 H, MPV 10.4, Immature Gran % (Auto) 0.800, Neut % (Auto) 88.2 H, Lymph % (Auto) 5.3 L, [place] % (Auto) 5.5, Eos % (Auto) 0.0, Baso % (Auto) 0.2, Absolute Neuts (auto) 16.5 H, Absolute Lymphs (auto) 0.99, Nucleated RBC % 0, PT 13.5, INR 1.0, APTT 23.8 L, Sodium 134, Potassium 3.4, Chloride 94 L, Carbon Dioxide 25.9, Anion Gap 14, BUN 55 H, Creatinine 1.47 H, Estim Creat Clear Calc 28.38 L, Est GFR (MDRD) Non-Af 36 L, BUN/Creatinine Ratio 37.6 H, Glucose 187 H, Calcium 11.7 H, P hosphorus 1.2 L*, Total Bilirubin 0.79, AST 32, ALT 16, Alkaline Phosphatase 92, Troponin T High Sens 87 H*, Total Protein 7.4, Albumin 3.9, Globulin 3.4, Albumin/Globulin Ratio 1.2, Lipase 29, PTH Intact 15 06/26/24 11:21: Lactic Acid 3.6 H* 06/26/24 11:29: Magnesium 2.3 H, Procalcitonin 0.16 H 06/26/24 12:54: Ionized Calcium 1.40 H 06/26/24 13:08: Urine Color Yellow, Urine Clarity Clear, Urine pH 5.0, Ur Specific [place] 1.020, Urine Protein 30 H, Urine Glucose (UA) Normal, Urine Ketones Negative, Urine Occult Blood Negative, Urine Nitrite Negative, Urine Bilirubin Negative, Urine Urobilinogen Normal, Ur Leukocyte Esterase Negative, Urine RBC 0 SEEN, Urine WBC 0 SEEN, Ur Squamous Epith Cells 0 SEEN, Urine Bacteria 0 SEEN, Hyaline Casts 0-5 SEEN, Urine Mucus 0 SEEN 06/26/24 13:26: Troponin T Hi Sens 2 Hr 78 H* 06/26/24 15:27: Troponin T Hi Sens 4Hr 72 H* 06/26/24 16:13: Lactic Acid 1.3 06/26/24 22:05: POC Glucose 116 H 06/27/24 06:07: WBC 12.0 H, RBC 3.25 L, Hgb 9.8 L, Hct 28.6 L, MCV 88.0, MCH 30.2, MCHC 34.3, RDW Std Deviation 43.8, RDW Coeff of Chi 13.5, Plt Count 340, MPV 10.5, Immature Gran % (Auto) 0.500, Neut % (Auto) 92.6 H, Lymph % (Auto) 5.4 L, [place] % (Auto) 1.3, Eos % (Auto) 0.0, Baso % (Auto) 0.2, Absolute Neuts (auto) 11.1 H, Absolute Lymphs (auto) 0.65 L, Nucleated RBC % 0, Sodium 138, Potassium 3.1 L, Chloride 105, Carbon Dioxide 20.1 L, Anion Gap 13, BUN 40 H, Creatinine 0.90, Estim Creat Clear Calc 48.23 L, Est GFR (MDRD) Non-Af 65, BUN/Creatinine Ratio 44.6 H, Glucose 146 H, Calcium 9.4, Magnesium 1.8, Total Bilirubin 0.48, Direct Bilirubin 0.25, AST 22, ALT 13, Alkaline Phosphatase 75, Total Protein 5.9, Albumin 3.1 L, Globulin 2.7, TSH 0.348 06/27/24 06:43: POC Glucose 142 H Micro: Microbiology 06/26/24 13:08 Urine, Random Urine Culture - Preliminary Culture exhibits no growth. 06/26/24 11:37 Mucosa - Nose SARS-CoV-2, Influenza & RSV (PCR) - Final Imaging Radiology Impression Chest X-Ray 06/26/24 11:55 IMPRESSION: No radiographic evidence of active cardiopulmonary disease. Reading [facility] Abdomen/Pelvis CT 06/26/24 12:13 IMPRESSION: Fecal impaction in the rectosigmoid colon. 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 Fecal impaction in the rectum. Soft tissue density seen in the region of the perineum. Questionable rectal prolapse. Clinical correlation recommended. Reading Location: [facility] 06/26/24 16:35 IMPRESSION: 1. No acute cardiopulmonary abnormality. 2. Scattered pulmonary nodules measuring up to 4 mm in size. Consider CT chest in 12 months if patient is high-risk per Fleischner society guidelines. 3. Ascending thoracic aorta measures 3.9 cm in diameter. 4. Mild cardiomegaly. Reading Location: [id number] Charges/Coding Visit Charges Inpatient E&M: 85532 Init Hosp L1
[2024-06-27 12:47] VITALS: O2SAT 100
[2024-06-27 13:00] LABS: Bedside Glucose 124 mg/dL (74-106)
--- NOTE | 2024-06-27 14:09 | CASEMGMT ---
SAMANTHA SMALL Assessment Face to Face with patient for initial transition planning/care coordination assessment. SAMANTHA SMALL introduced self and role at [facility], pt voices understanding. Pt is A&Ox4 and is resting comfortably in bed and is calm. Pt's son (Ricco) at bedside. Care providers, pharmacy, and demographics verified. Admitting dx: N/V LACE Strata: 1 PCP: Yared Hamm Specialists: [facility] Preferred Pharmacy: [facility] Insurance: [facility] A[facility]B, [facility] Prescription Benefit: Yes LNOK: Christopher (Son), Ricco (Son) Living Arrangements: Pt lives alone in a single story home with 1 step to enter ADLs/IADLs: Pt reports that she is independent at baseline Transportation: Pt reports that her 2 sons drive her and denies concerns DME: Functioning BGM with sufficient supplies. FWW. Shower chair. Grab bars. HHC/SNF: Denies history or needs Pt?s goal: Home Plan: Home, anticipate no additional needs. Pt reports that she has support at home through her sons and that Christopher lives very close and checks on the pt daily. Per chart review, pt has new onset A-Fib. CM to follow for new anticoagulant. Pt reports that she feels safe returning home once medically ready and denies the need for OP Therapy. Pt denies further questions or concerns at this time. Report given to [employer] SALES REPRESENTATIVE CM. Jose De Jesus Hogan RN, CM
--- NOTE | 2024-06-27 14:19 | CHAPLAIN ---
Type of Pastoral Visit _x__ Initial Visit ___ Follow-up Visit ___ On-call Visit ___ General Patient Visit ___ Spiritual Assessment ___ Family Conference ___ Bereavement ___ Rapid Response ___ Code Blue ___ Other (describe below) Pastoral Care Referral From _x__ Patient ___ Family ___ Nurse ___ Physician ___ County Engineer ___ Order To Delivery Supervisor ___ Other (describe below) Sacrament/Intervention _x__ Active listening ___ Anointing ___ Pentecostal ___ Bereavement ___ Communion ___ Sarita exploration ___ ___ Life review ___ Prayer ___ Reconciliation ___ Sacrament of Sick _x__ Supportive presence ___ Wedding ___ Other (describe below) Pastoral Comments patient appeared to be surprised when this junior high school teacher introduced himself to her; pt and son are in the room; pt says that she is a little bit better while son states that she is greatly improved since yesterday; pt cannot think of anything that she needs or would like to have help with when asked by the junior high school teacher; small talk and best wishes given
[2024-06-27 14:30] VITALS: BP 119/71; PULSE 70; RESP 18; TEMP 36.7; O2SAT 97
[2024-06-27 16:43] LABS: Bedside Glucose 198 mg/dL (74-106)
[2024-06-27] MEDS: Atorvastatin Calcium 20 MG Tablet PO (20:42)
[2024-06-28] VITALS (11 sets, daily range): BP systolic 111–189; BP diastolic 74–104; PULSE 72–111; RESP 16–20; TEMP 36.6–37; O2SAT 95–99
[2024-06-28 06:01] LABS: Absolute Lymphocyte Count 1.75 X10^3/uL (0.83-4.51); Absolute Neutrophil Count 9.3 X10^3/uL (2.0-7.7); Basophil# 0.03 X10^3/uL; Basophil% 0.2 % (0-1); Eosinophil# 0.04 X10^3/uL; Eosinophils% 0.3 % (0-5); Hematocrit 28.4 % (37-47); Hemoglobin 9.8 g/dL (12.0-15.0); Lymphocyte # 1.75 X10^3/ul (0.83-4.51); Lymphocyte % 14.2 % (19-41); Mean Corp Hgb Conc 34.5 g/dL (32-36); Mean Corpuscular Hgb 30.1 pg (27.0-32.0); Mean Corpuscular Volume 87.1 fL (81-99); Mean Platelet Vol. 10.2 fl (6.2-12.0); Monocyte# 1.07 X10^3/uL; Monocyte% 8.7 % (0-10); NRBC Flagged by Analyzer 0 % (0-5); Neutrophil # 9.34 X10^3/uL (2.7-7.7); Platelet Count 376 K/mm3 (150-450); RBC Distribution Width CV 13.5 % (11.6-14.6); Red Blood Count 3.26 M/mm3 (4.2-5.4); White Blood Count 12.3 K/mm3 (4.4-11.0)
[2024-06-28 06:24] LABS: Magnesium 1.4 mg/dL (1.5-2.2); Phosphorus 2.8 mg/dL (2.7-4.5)
[2024-06-28 06:30] LABS: Anion Gap 12 (5-15); BUN 34 mg/dL (4-19); BUN/Creat Ratio 35.3 RATIO (10-20); Calcium,Total 8.7 mg/dL (7.6-11.0); Carbon Dioxide 21.5 mmol/L (21.0-32.0); Chloride 108 mmol/L (98-108); Creatinine, Serum 0.96 mg/dL (0.70-1.20); EST Glomerular Filtration Rate 61 (>60); Estimated Creatinine Clearance 45.21 ml/min (50-250); Glucose 123 mg/dL (70-99); Potassium 2.7 mmol/L (3.3-5.1); Sodium Level 141 mmol/L (133-145)
[2024-06-28 06:50] LABS: Bedside Glucose 146 mg/dL (74-106)
[2024-06-28] MEDS: amLODIPine 2.5 MG Tablet PO (08:57)
[2024-06-28] MEDS: Docusate Sodium 100 MG Capsule PO ×2 (08:57→21:44)
[2024-06-28] MEDS: Metoprolol(XL)Succ 50 MG Tablet PO (08:58)
[2024-06-28] MEDS: Potassium Chloride Oral Tablet 20 MEQ 60 MEQ PO (08:59)
[2024-06-28] MEDS: Fluticasone 0.05% 1 SPRAY NASAL.SRY 2 SPRAY NASAL (09:02)
[2024-06-28] MEDS: APIXABAN 5 MG TABLET PO ×2 (09:30→21:44)
[2024-06-28] MEDS: Magnesium Sulfate 2 GM in Dextrose 5%-Water (100mL Bag) 100 ML IV (10:43)
[2024-06-28] MEDS: Losartan Potassium 50 MG Tablet PO (12:14)
[2024-06-28 12:36] LABS: Bedside Glucose 177 mg/dL (74-106)
--- NOTE | 2024-06-28 16:38 | PN.HOSP_ITS ---
Reason for Visit Reason for Visit: Nausea and vomiting Subjective Subjective Still with some confusion but much better than last evening. Was oriented to self and time but still not to place. Heart rates have been somewhat elevated so we will go ahead and go up on her beta-diogo and start apixaban with discontinuation of Lovenox. Objective Data Objective Data Vital Signs: Vital Signs Temp Pulse Resp BP Pulse Ox O2 Del Method 98.4 F 111 H 18 170/104 H 97 Room Air 06/28/24 16:00 06/28/24 16:00 06/28/24 16:00 06/28/24 16:06 06/28/24 16:00 06/28/24 16:00 Oxygen Delivery Method Room Air Weight: 62.8 kg Body Mass Index (BMI) 22.3 Intake & Output: Intake and Output for Last 24 Hours 06/26/24 06/27/24 06/28/24 23:59 23:59 23:59 Intake Total 2226.67 / 2286.67 3281.6633 / 3341.6633 464 / 464 Output Total Balance 2226.67 / 2286.67 3281.6633 / 3341.6633 463 / 463 Lab / Micro Data 06/28/24 05:29 06/28/24 05:29 Labs: Laboratory Results - last 24 hr 06/27/24 16:25: POC Glucose 198 H 06/28/24 05:29: WBC 12.3 H, RBC 3.26 L, Hgb 9.8 L, Hct 28.4 L, MCV 87.1, MCH 30.1, MCHC 34.5, RDW Std Deviation 43.0, RDW Coeff of Chi 13.5, Plt Count 376, MPV 10.2, Immature Gran % (Auto) 0.600, Neut % (Auto) 76.0 H, Lymph % (Auto) 14.2 L, [place] % (Auto) 8.7, Eos % (Auto) 0.3, Baso % (Auto) 0.2, Absolute Neuts (auto) 9.3 H, Absolute Lymphs (auto) 1.75, Nucleated RBC % 0, Sodium 141, P otassium 2.7 L*, Chloride 108, Carbon Dioxide 21.5, Anion Gap 12, BUN 34 H, Creatinine 0.96, Estim Creat Clear Calc 45.21 L, Est GFR (MDRD) Non-Af 61, B UN/Creatinine Ratio 35.3 H, Glucose 123 H, Calcium 8.7, Phosphorus 2.8, M agnesium 1.4 L 06/28/24 06:30: POC Glucose 146 H 06/28/24 11:26: POC Glucose 177 H Micro: Microbiology 06/26/24 11:42 Blood Culture (Wb) - Venous Blood Culture - Preliminary No growth in 48 hours. 06/26/24 11:20 Blood Culture (Wb) - Anticubital Left Blood Culture - Preliminary No growth in 48 hours. 06/26/24 13:08 Urine, Random Urine Culture - Final Culture exhibits no growth. 06/26/24 11:37 Mucosa - Nose SARS-CoV-2, Influenza & RSV (PCR) - Final Physical Exam Const alert, no apparent distress, healthy appearing and well nourished; Negative for oriented x3 Constitutional Narrative: Older, white female, sitting up on the edge of the bed eating breakfast, appears comfortable, nontoxic HEENT head/scalp atraumatic and moist oral mucous membranes HEENT Narrative: Lip swelling is better Head and Scalp: normocephalic Resp normal respiratory effort, no retractions, no use of accessory muscles and clear to auscultation bilaterally Auscultation: Negative for rales, rhonchi or wheezes Cardio S1 normal heart sound, S2 normal heart sound, no murmurs, no rub, no gallops and no clicks Cardio Narrative: Mild tachycardia with irregularly irregular rhythm GI normal to inspection, nondistended, normoactive bowel sounds, soft to palpation and non-tender Extremity no clubbing, cyanosis or edema Extremity Narrative: 2+ pedal pulses Neuro moves all extremities and no focal motor deficits Sensorium / Orientation: awake, alert, oriented to person and oriented to time Speech: speech normal Psych Psych Narrative: Patient is still little bit agitated but much more calm than yesterday, interacts better will allow me to evaluate her Assessment & Plan Assessment/Plan (1) Nausea and vomiting: (2) Constipation: (3) Adverse drug reaction: (4) Toxic metabolic encephalopathy: PLAN: Plan Nausea/vomiting/poor p.o. intake - Resolved Adverse reaction to iodinated contrast - Resolving Toxic/metabolic encephalopathy - Per family has had this reaction previously to methylprednisolone - Seems to be improving however patient still little bit confused - Would very much like to avoid any medications for her agitation and confusion as I am concerned that this could make her worse - Family states she has significant sensitivity to medications - I have asked nursing to please try to redirect her and obtain a sitter for tonight and avoid Haldol, risperidone, Ativan, etc. and please just try to use redirection as long as her safety is not in question - I will remove any aggravating devices to decrease her agitation - UA and urine culture negative will repeat UA - If remains confused will consider MRI in the morning given atrial fibrillation found on admission ?new onset A-fib/flutter - Patient back in atrial flutter - Start Eliquis and discontinue Lovenox - Increase metoprolol ultimately 100 mg p.o. twice daily and transition off extended release - TSH is within normal limits - Echocardiogram showed an EF of 70% with mild focal aortic valve calcification but no other significant abnormalities. Hypomagnesemia - IV 2 g of mag given Hypokalemia - 60 mEq p.o. potassium and recheck in a.m. - Will repeat magnesium level as it was low this morning as well History of HOCM - Echocardiogram stable - Awaiting cardiac MRI - Continue ongoing outpatient follow-up with cardiology Essential hypertension/hyperlipidemia - Continue amlodipine 2.5 mg daily - Increase metoprolol to 100 mg p.o. twice daily - Restart home losartan at 50 mg with the change in metoprolol dosing for her heart rate control - Continue home statin Right groin cystic mass - Vascular surgery following - Does not appear to be vascular in origin and consistent with a lymphocele - No further intervention at this time Hypercalcemia - Resolved - Vitamin D level is still pending HUSSAIN - Resolved DM-2 - Accu-Cheks as ordered - SSI - Cardiac/carb controlled diet Diabetic retinopathy - Restart home medication at discharge Seasonal allergies - Continues nasal spray DVT prophylaxis - Continue Lovenox CODE STATUS - DNR CCA okay for short-term intubation Charges/Coding Visit Charges Inpatient E&M: 58857 Subs Hosp L2
[2024-06-28] MEDS: Metoprolol Tartrate 5 MG/5 ML Vial IV (17:28)
[2024-06-28 17:56] LABS: Bedside Glucose 157 mg/dL (74-106)
[2024-06-28] MEDS: Atorvastatin Calcium 20 MG Tablet PO (21:44)
[2024-06-28] MEDS: Metoprolol Tartrate 100 MG Tablet PO (21:48)
[2024-06-29 00:11] VITALS: BP 189/94; PULSE 72
[2024-06-29] MEDS: hydrALAZINE 20 MG/ML Vial 10 MG IV (00:11)
[2024-06-29] MEDS: 0.9% Saline Lock 10 ML Syringe IV (00:12)
[2024-06-29 00:50] VITALS: BP 140/73; PULSE 74
[2024-06-29 04:53] LABS: Hematocrit 30.5 % (37-47); Hemoglobin 10.3 g/dL (12.0-15.0); Mean Corp Hgb Conc 33.8 g/dL (32-36); Mean Corpuscular Hgb 29.9 pg (27.0-32.0); Mean Corpuscular Volume 88.7 fL (81-99); Mean Platelet Vol. 10.4 fl (6.2-12.0); Platelet Count 340 K/mm3 (150-450); RBC Distribution Width CV 13.8 % (11.6-14.6); RBC Distribution Width SD 44.4 fl (35.1-43.9); Red Blood Count 3.44 M/mm3 (4.2-5.4)
[2024-06-29 05:32] LABS: Magnesium 1.7 mg/dL (1.5-2.2)
[2024-06-29 05:38] LABS: Anion Gap 12 (5-15); BUN 27 mg/dL (4-19); BUN/Creat Ratio 32.5 RATIO (10-20); Calcium,Total 8.8 mg/dL (7.6-11.0); Carbon Dioxide 20.4 mmol/L (21.0-32.0); Chloride 107 mmol/L (98-108); Creatinine, Serum 0.83 mg/dL (0.70-1.20); EST Glomerular Filtration Rate 72 (>60); Estimated Creatinine Clearance 52.29 ml/min (50-250); Glucose 129 mg/dL (70-99); Potassium 3.2 mmol/L (3.3-5.1); Sodium Level 139 mmol/L (133-145)
[2024-06-29 07:01] LABS: Bedside Glucose 130 mg/dL (74-106)
[2024-06-29 07:09] VITALS: O2SAT 96
--- NOTE | 2024-06-29 08:23 | DS.PCM_ITS ---
Providers Date of Admission: 06/26/24 Date of Discharge: 06/29/24 Primary Care Physician: Dr. Adrian Hamm MD Consultations 06/26/24 20:19 Consult: Vascular Surgery Routine Consulting Provider: Taiwo Topete Reason for Consult: right groin abnormality EMERGENT Consult: No MD Notified: Yes Date Notified: 06/26/24 Time Notified: 18:23 Method of Notification: Verbal Reason For Visit: N/V, POOR PO Diagnosis Discharge Diagnosis (1) Nausea and vomiting: Status: Acute Code(s): R11.2 - Nausea with vomiting, unspecified (2) Constipation: Status: Acute Code(s): K59.00 - Constipation, unspecified (3) Adverse drug reaction: Status: Acute Code(s): T50.905A - Adverse effect of unspecified drugs, medicaments and biological substances, initial encounter (4) Toxic metabolic encephalopathy: Status: Acute Code(s): G92.8 - Other toxic encephalopathy Medications at Discharge Home Medications aflibercept 2 mg/0.05 mL intravitreal solution for injection 2 mg intravitreal ONCE EYES 05/17/24 albuterol sulfate 90 mcg/actuation aerosol inhaler 2 puff inhalation Q4-6H PRN SOB 05/17/24 atorvastatin 20 mg tablet 20 mg PO QHS CHOLESTEROL 05/17/24 calcium carbonate-vitamin D2-minerals tablet tab PO BID SUPPLEMENT 05/17/24 docusate sodium 100 mg capsule 100 mg PO BID STOOL SOPFTENER 05/17/24 epinephrine 0.3 mg/0.3 mL injection, auto-injector 0.3 mg IM Q5-15M PRN bronchodilation 05/17/24 fluticasone propionate 50 mcg/actuation nasal spray,suspension (Allergy Relief (fluticasone)) 2 spray intranasal QDAY SINUSES 05/17/24 metformin 500 mg tablet 1,000 mg PO BID DIABETES 05/17/24 psyllium seed (sugar) oral powder (Fiber Therapy (psyllium seed-sucrose) oral powder) 1 tbsp PO BID SUPPLEMENT 05/17/24 amlodipine 2.5 mg tablet 2.5 mg PO QDAY BLOOD PRESSURE #30 tabs 06/06/24 metoprolol succinate 25 mg tablet,extended release 24 hr 25 mg PO DAILY BLOOD PRESSURE 06/26/24 apixaban 5 mg tablet (Eliquis) 5 mg PO BID #60 tabs 06/29/24 metoprolol tartrate 100 mg tablet 100 mg PO BID #60 tabs 06/29/24 Hospital Course Procedures EKG and - (Chest x-ray/CT abdomen pelvis/CT chest/lower extremity duplex) Summary of Care Provided Minutes Spent on Discharge: 38 Hospital Course: Mrs. Marshall is a 78-year-old white female who presented to the emergency department at [facility] on 06/26/2024 with a chief complaint of nausea and vomiting. Family reported she had been having some problems with poor appetite over weeks to months prior to presentation. She was recently given a bowel prep and was cleaned out and having a good bowel movements however she again developed nausea and loss of appetite so she came in for further evaluation management. Vital signs in the emergency department were unremarkable other than tachycardia. EKG showed patient was in atrial flutter. Chemistry panel showed a leukocytosis with a white count of 18.7, mild anemia with hemoglobin 11.9 and a mildly elevated platelet count at 479,000. She demonstrated HUSSAIN with a BUN of 55 and a serum creatinine of 1.47. Blood sugar was 187. Her UA was not consistent with infection. Urine was sent for culture and resulted negative for any growth. Her initial lactic acid was elevated at 3.6 but quickly resolved with IV fluids and the repeat was 1.3. Her initial troponin was 87 however delta troponin decreased to 72. Initial calcium was 11.7 however this resolved with IV fluids. Ionized calcium was elevated but it seems that her hypercalcemia was related to dehydration. 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 CT of the chest was performed and showed scattered pulmonary nodules of 4 mm inside with follow-up CT recommended in 12 months and a 3.9 cm ascending thoracic aneurysm and mild cardiomegaly but was otherwise unremarkable. TSH was performed and normal. Vascular surgery was consulted due to the calcified aneurysm in her right common femoral artery and a duplex was ordered which was unremarkable. Vascular surgery felt that this was a cystic lesion and no further workup was required. There is no concern for vascular etiology. Her heart rate remained intermittently elevated so we did uptitrate her beta-diogo. We transitioned her from extended release metoprolol to twice daily metoprolol tartrate for extended effect as it did seem to be that her extended release beta-diogo was wearing off early prior to her next dosing. Heart rate was better controlled after her metoprolol was overall uptitrated to 100 mg p.o. twice daily. We decreased her losartan from 100 to 50 mg daily and maintain her amlodipine. Heart rate was controlled however the patient remained in a flutter. She was started on Eliquis for stroke prevention. With regards to her nausea and vomiting this had resolved. She was having good bowel movements. It seems that her nausea vomiting is likely related to constipation. I do recommend she stay on a good bowel regimen and goal to have a bowel movement every 1 to 3 days. She has follow-up with cardiology with regards to her new onset atrial fibrillation. Echocardiogram was able to be performed when she was hospitalized and showed EF of 70% with mild focal aortic valve calcification but is otherwise unremarkable. Her hospital course was complicated by adverse reaction to contrast which she sustained tongue and lip swelling. She was given famotidine, Benadryl, and methylprednisolone x 1 dose. Unfortunately she had a reaction to the methylprednisolone where she got acutely delirious and this lasted for about 36 hours with slowly improving mentation. By the time of discharge she was back to her baseline mental status and had no significant recollection of what had happened related to the drug. Patient was able to be discharged home in stable condition with new prescriptions for metoprolol and Tavia has a follow-up appointment to see cardiology next week. Advised that she see her primary care physician within the next week. Discharge diagnoses: Nausea/vomiting/poor p.o. intake secondary to constipation Fecal impaction-resolved Adverse reaction to iodinated contrast with angioedema Acute delirium secondary to adverse reaction to methylprednisolone New onset atrial flutter/fibrillation Hypomagnesemia-resolved Hypokalemia-resolved History of HOCM Essential hypertension Hyperlipidemia Right groin cystic mass Hypercalcemia-resolved HUSSAIN-resolved DM-2 Diabetic retinopathy Seasonal allergies Suspected mild cognitive impairment Physical Exam Const alert, oriented x3, no apparent distress, healthy appearing and well nourished Constitutional Narrative: Older, white female, sitting up in a chair at the bedside, appears comfortable, nontoxic, watching television, mental status back to baseline General Appearance: cooperative, comfortable, well kempt and well developed Exam Limitations: no limitations HEENT normocephalic, head/scalp atraumatic, hearing grossly normal bilaterally and moist oral mucous membranes HEENT Narrative: Mallampati 2, no thrush Eyes conjunctivae normal Eyes Narrative: No scleral icterus Neck supple Neck Narrative: Trachea midline, no thyroid enlargement Resp normal respiratory effort, no retractions, no use of accessory muscles and clear to auscultation bilaterally Auscultation: Negative for rales, rhonchi or wheezes Cardio regular rate, S1 normal heart sound, S2 normal heart sound, no murmurs, no rub, no gallops and no clicks; Negative for regular rhythm Cardio Narrative: Irregularly irregular rhythm with regular rate GI normal to inspection, nondistended, normoactive bowel sounds, soft to palpation and non-tender Extremity no clubbing, cyanosis or edema Extremity Narrative: 2+ pedal pulses Skin skin turgor normal, no jaundice, no petechiae and no mottling Neuro oriented x3, CN's II-XII intact bilaterally, moves all extremities and no focal motor deficits Speech: speech normal Psych affect normal Psych Narrative: Very pleasant, interacts appropriately Weight / BMI Weight Weight: 62.8 kg Body Mass Index (BMI) 22.3 ABG / Lab / Microbiology Data 06/29/24 04:27 06/29/24 04:27 Laboratory: Laboratory Results - last 24 hr 06/28/24 17:03: POC Glucose 157 H 06/29/24 04:27: WBC 11.0, RBC 3.44 L, Hgb 10.3 L, Hct 30.5 L, MCV 88.7, MCH 29.9, MCHC 33.8, RDW Std Deviation 44.4 H, RDW Coeff of Chi 13.8, Plt Count 340, MPV 10.4, Sodium 139, Potassium 3.2 L, Chloride 107, Carbon Dioxide 20.4 L, Anion Gap 12, BUN 27 H, Creatinine 0.83, Estim Creat Clear Calc 52.29, Est GFR (MDRD) Non-Af 72, BUN/Creatinine Ratio 32.5 H, Glucose 129 H, Calcium 8.8, Magnesium 1.7 06/29/24 06:16: POC Glucose 130 H 06/29/24 11:52: POC Glucose 121 H Microbiology: Microbiology 06/26/24 11:42 Blood Culture (Wb) - Venous Blood Culture - Preliminary No growth in 48 hours. 06/26/24 11:20 Blood Culture (Wb) - Anticubital Left Blood Culture - Preliminary No growth in 48 hours. 06/26/24 13:08 Urine, Random Urine Culture - Final Culture exhibits no growth. 06/26/24 11:37 Mucosa - Nose SARS-CoV-2, Influenza & RSV (PCR) - Final D/C Instructions Discharge Activity: Return to Normal Activity DC O2, CPAP, BIPAP Needs Home O2 Discharge instructions: No Meaningful Use Info Meaningful Use Meaningful Use Diagnoses (Choose all that apply): None applicable Ischemic Stroke Statin Dosing Therapy Reference: STATIN DOSE THERAPY REFERENCE: * Patients > 75 years receive moderate or high dose statin therapy. * Patients 75 years or YOUNGER should receive HIGH intensity statin dose unless contraindicated. You will be required to document reason for non-treatment if statin daily dose does not meet guidelines. HIGH DOSE STATIN THERAPY DAILY Atorvastatin > than or = to 40 mg Rosuvastatin > than or = to 20 mg Amlodipine + Atorvastatin > than or = to 2.5/40 mg Ezetimibe + Simvastatin 10/80 mg Simvastatin 80mg Discharge Plan Admission Admit Date/Time: 06/26/24 17:57 Primary Reason for Your Visit: Nausea and vomiting Attending Provider: Yumiko Grande Primary Care Provider: Adrian Hamm Consulting Providers: Taiwo Topete; Velma Vazquez Instructions Additional Instructions / Restrictions: 1. You were diagnosed with atrial fibrillation during her hospital stay. We are able to control your heart rate with metoprolol. Please continue this medication. As discussed, risks of A-fib are stroke and therefore you are placed on anticoagulation. 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 Discharge Orders/Prescriptions Prescriptions: New metoprolol tartrate 100 mg Tablet 100 mg PO BID Qty: 60 2RF Eliquis 5 mg Tablet 5 mg PO BID Qty: 60 2RF Continued albuterol sulfate 90 mcg/actuation HFA aerosol inhaler 2 puff inhalation Q4-6H PRN (Reason: SOB) metformin 500 mg tablet 1,000 mg PO BID atorvastatin 20 mg tablet 20 mg PO QHS epinephrine 0.3 mg/0.3 mL auto-injector 0.3 mg IM Q5-15M PRN (Reason: bronchodilation) Patient Comments: HAS NOT NEEDED Rx Instructions: do not exceed 3 doses per episode fluticasone propionate [Allergy Relief (fluticasone)] 50 mcg/actuation spray,suspension 2 spray intranasal QDAY Rx Instructions: administer into each nostril aflibercept 2 mg/0.05 mL solution 2 mg intravitreal ONCE docusate sodium 100 mg capsule 100 mg PO BID Fiber Therapy(psyl seed-sugar) Powder 1 tbsp PO BID calcium carb-vit D2-minerals Tablet PO BID metoprolol succinate 25 mg tablet extended release 24 hr 25 mg PO DAILY amlodipine 2.5 mg tablet 2.5 mg PO QDAY Qty: 30 11RF Discontinued losartan 100 mg tablet 100 mg PO QDAY metoprolol succinate 50 mg tablet extended release 24 hr 50 mg PO QDAY Qty: 90 3RF ondansetron HCl 4 mg tablet 4 mg PO Q8H PRN PRN (Reason: nausea/vomiting) hydrochlorothiazide 12.5 mg capsule 12.5 mg PO DAILY Referrals / Follow Up: Adrian Hamm MD [Primary Care Provider] - Within 1 Week Britney Torres NP, [employer] [Non-Staff -Ordering Privileges] - 07/06/24 2:00 pm Disposition Disposition (needs filled in before D/C Order can be placed): Home, Self Care Charges/Coding Visit Charges Inpatient E&M: 41280 Disch Hosp >30min
[2024-06-29 08:26] VITALS: BP 148/107; PULSE 87; RESP 17; TEMP 37; O2SAT 98
[2024-06-29] MEDS: Fluticasone 0.05% 1 SPRAY NASAL.SRY 2 SPRAY NASAL (08:41)
[2024-06-29 08:43] VITALS: PULSE 87
[2024-06-29] MEDS: Metoprolol Tartrate 100 MG Tablet PO (08:43)
[2024-06-29] MEDS: Docusate Sodium 100 MG Capsule PO (08:43)
[2024-06-29] MEDS: APIXABAN 5 MG TABLET PO (08:43)
[2024-06-29] MEDS: amLODIPine 2.5 MG Tablet PO (08:43)
[2024-06-29] MEDS: Losartan Potassium 50 MG Tablet PO (08:43)
[2024-06-29] MEDS: Potassium Chloride Oral Tablet 20 MEQ 40 MEQ PO (08:44)
[2024-06-29 12:12] LABS: Bedside Glucose 121 mg/dL (74-106)
[2024-06-29 14:44] VITALS: BP 149/92; PULSE 86; RESP 18; TEMP 36.4; O2SAT 97
--- NOTE | 2024-06-29 14:46 | CASEMGMT ---
Patient is discharging on Eliquis, copay is $400.02. SAMANTHA SMALL called son Christopher to discuss needs at discharge. RN GEOVANNY reviewed progress with therapy, patient ambulated modified independent, script received for outpatient therapy. Son states they will see how patient does at home and decide if she will need outpatient therapy, script provided in discharge packet. SAMANTHA SMALL updated son of Eliquis copay and deductible to meet. Son would like to use [employer] savings card. Son had no further questions or concerns. SAMANTHA SMALL called [facility] [employer] and updated to apply [employer] savings card.
[2024-06-30 13:08] LABS: Vitamin D 1,25-Dihydroxy 73.7 pg/mL (24.8-81.5)
== END 2024-06-29 16:01 | disposition home or self-care (01) | DRG 682 ==
LOC: ED 16:25 → PCU 17:59
PROVIDERS: Admitting Provider Internal Medicine; Emergency Provider Emergency Medicine; PCP Family Medicine; Visit Provider Internal Medicine
DX: N17.9 Acute kidney failure, unspecified (principal); G92.8 Other toxic encephalopathy; I24.89 Other forms of acute ischemic heart disease; E87.20 Acidosis, unspecified; I48.92 Unspecified atrial flutter; I42.1 Obstructive hypertrophic cardiomyopathy; E11.319 Type 2 diabetes mellitus with unspecified diabetic retinopathy without macular edema; D64.9 Anemia, unspecified; Z66 Do not resuscitate; I48.91 Unspecified atrial fibrillation; E86.0 Dehydration; I10 Essential (primary) hypertension; I70.0 Atherosclerosis of aorta; K56.41 Fecal impaction; E78.5 Hyperlipidemia, unspecified; K21.9 Gastro-esophageal reflux disease without esophagitis; K58.9 Irritable bowel syndrome, unspecified; J30.2 Other seasonal allergic rhinitis; E83.52 Hypercalcemia; E87.6 Hypokalemia; I72.4 Aneurysm of artery of lower extremity; G31.84 Mild cognitive impairment of uncertain or unknown etiology; E83.42 Hypomagnesemia; Z79.84 Long term (current) use of oral hypoglycemic drugs; T38.0X5A Adverse effect of glucocorticoids and synthetic analogues, initial encounter; Z79.01 Long term (current) use of anticoagulants; R19.09 Other intra-abdominal and pelvic swelling, mass and lump; R63.0 Anorexia; Z68.22 Body mass index [BMI] 22.0-22.9, adult; Z79.52 Long term (current) use of systemic steroids; R91.8 Other nonspecific abnormal finding of lung field; Y69 Unspecified misadventure during surgical and medical care
CPT/HCPCS: 36415; 71046; 71250; 74177; 80048; 80053; 80076; 81001; 82330; 82652; 82962; 83605; 83690; 83735; 83970; 84100; 84145; 84443; 84484; 85025; 85027; 85610; 85730; 87040; 87086; 87631; 93005; 93308; 93926; 94762; 97162; 97166; 97530; 97535; 97802; 99283; P9612; Q9967; A4216

== ENCOUNTER → 2024-09-08 | Outpatient (CLI) | payer MEDICARE, OTHER, SELFPAY ==
--- OUTSIDE RECORDS SUMMARY | 2024-09-08 07:27 | XMS RPT_ITS | CCD ---
Author Organization [facility] Care Team Providers Care Animal Care Giver Name Role Phone Pedro WEATHERS MD, Frank A Primary Care Provider Deyanira Deonte Dumont MD Primary Care Provider Deonte Hamm MD Primary Care Provider Deonte Hamm MD Primary Care Provider Deonte Hamm MD Primary Care Provider Deonte Rose Unavailable Milton CELIS, Deonte Unavailable Unavailable Deonte Hamm MD Primary Care Provider Podlogar SMALL ENGINE TRAINER.Tonya PEREIRA Unavailable [place] SMALL ENGINE TRAINER.Liliana PEREIRA Unavailable [place] SMALL ENGINE TRAINER.Liliana PEREIRA Unavailable Dr. Adrian Hamm MD Primary Care Provider Dr. Adrian Hamm MD Referring Provider [phone] Dr. Kaveh Donnelly MD Attending Provider Dr. Kaveh Donnelly MD Referring Provider Dr. Jordy Mireles DO Emergency Provider Dr. Velma Vazquez MD Admit Provider Dr. Velma Vazquez MD Attending Provider Jordy Mireles Attending Unavailable Dr. Velma Vazquez MD Other Provider Dr. Taiwo Topete MD Other Provider Dr. Yumiko Grande DO Attending Provider Dr. Yumiko Grande DO Other Provider Risa CELIS, Dr. Balderas Attending Provider [phone] Yumiko Grande DO Referring Provider Tere Mandujano Attending Provider [phone] Efrem CELIS, Dr. Maravilla Attending Provider [phone] Tere Mandujano Referring Provider [phone] Brian RIVERS-C, Britney Attending Provider [facility] SMALL ENGINE TRAINER.CARD DOFFER, Liliana Unavailable [facility] SMALL ENGINE TRAINER.CARD DOFFER, Liliana Unavailable DEONTE HAMM Referring Unavailab le BURSLEY, CHRISTOPHER B Primary Care Unavailab le DELEY, CHRISTOPHER B Attending Unavailab le NORIS, CHRISTOPHER B Primary Care Unavailab le EDLEY, CHRISTOPHER B Referring Unavailab le BURSLEY, CHRISTOPHER B Primary Care Unavailab le BURSLEY, CHRISTOPHER B Attending Unavailab le BURSLEY, CHRISTOPHER B Primary Care Unavailab le BURSLEY, CHRISTOPHER B Referring Unavailab le BURSLEY, CHRISTOPHER B Primary Care Unavailab le BURSLEY, CHRISTOPHER B Primary Care Unavailab le BURSLEY, CHRISTOPHER B Referring Unavailab le BURSLEY, CHRISTOPHER B Primary Care Unavailab le BURSLEY, CHRISTOPHER B Attending Unavailab le DELEY, CHRISTOPHER B Primary Care Unavailab le BURSLEY, CHRISTOPHER B Primary Care Unavailab le BURSLEY, CHRISTOPHER B Referring Unavailab le BURSLEY, CHRISTOPHER B Referring Unavailab le BURSLEY, CHRISTOPHER B Primary Care Unavailab le BURSLEY, CHRISTOPHER B Referring Unavailab le BURSLEY, CHRISTOPHER B Primary Care Unavailab le BURSLEY, CHRISTOPHER B Referring Unavailab le BURSLEY, CHRISTOPHER B Primary Care Unavailab le BURSLEY, CHRISTOPHER B Referring Unavailab le BURSLEY, CHRISTOPHER B Primary Care Unavailab le BURSLEY, CHRISTOPHER B Referring Unavailab le BURSLEY, CHRISTOPHER B Primary Care Unavailab le BURSLEY, CHRISTOPHER B Attending Unavailab le BURSLEY, CHRISTOPHER B Primary Care Unavailab le BURSLEY, CHRISTOPHER B Referring Unavailab le BURSLEY, CHRISTOPHER B Primary Care Unavailab le BURSLEY, CHRISTOPHER B Referring Unavailab le BURSLEY, CHRISTOPHER B Primary Care Unavailab le BURSLEY, CHRISTOPHER B Attending Unavailab le BURSLEY, CHRISTOPHER B Primary Care Unavailab le BURSLEY, CHRISTOPHER B Referring Unavailab le BURSLEY, CHRISTOPHER B Primary Care Unavailab le BURSLEY, CHRISTOPHER B Attending Unavailab le BURSLEY, CHRISTOPHER B Primary Care Unavailab le BURSLEY, CHRISTOPHER B Primary Care Unavailab le BURSLEY, CHRISTOPHER B Attending Unavailab le BURSLEY, CHRISTOPHER B Primary Care Unavailab le BURSLEY, CHRISTOPHER B Referring Unavailab le BURSLEY, CHRISTOPHER B Primary Care Unavailab Taiwo Yates Consulting Unavailable Yumiko Grande Attending Unavailable Velma Vazquez Admitting Unavailable Bursley, Adrian Primary Care Unavailable Velma Vazquez Consulting Unavailable Yumiko Grande Consulting Unavailable AndrzejKaveh victoria Referring Unavailable Bursley, Adrian Primary Care Unavailable Kaveh Donnelly Attending Unavailable Brian GRAIN I FARMWORKER, Britney Referring Unavailable Brian GRAIN I FARMWORKER, Britney Attending Unavailable Bursley, Adrian Primary Care Unavailable Brian GRAIN I FARMWORKER, Britney Referring Unavailable Brian GRAIN I FARMWORKER, Britney Attending Unavailable Bursley, Adrian Primary Care Unavailable Taiwo Topete Consulting Unavailable Yumiko Grande Attending Unavailable Velma Vazquez Admitting Unavailable Bursley, Adrian Primary Care Unavailable Velma Vazquez Consulting Unavailable AndrzejKaveh victoria Attending Unavailable Bursley, Adrian Primary Care Unavailable AndrzejKaveh victoria Referring Unavailable Taiwo Topete Attending Unavailable Tere Dickey Referring Unavailable Bursley, Adrian Primary Care Unavailable Andrey Lord Attending Unavailable Bursley, Adrian Primary Care Unavailable Brian GRAIN I FARMWORKER, Britney Attending Unavailable Bursley, Adrian Primary Care Unavailable Bursley, Adrian Referring Unavailable Bursley, Adrian Referring Unavailable Bursley, Adrian Primary Care Unavailable AndrzejKaveh victoria Attending Unavailable Velma Vazquez Attending Unavailable Yumiko Grande Referring Unavailable Tere Dickey Attending Unavailable Allergies Allergy Classification Reported Allergen(s) Allergy Type Date of Onset Reaction(s) Facility (20 sources) Doxycycline; Translations: [DOXYCYCLINE] Drug Allergy 05-19-[address] [facility] (20 sources) Lisinopril; Translations: [LISINOPRIL] Drug Allergy 02-06-[address] [facility] Work Phone: (20 sources) Penicillin G; Translations: [PENICILLIN G] Drug Allergy 01-06-20 05 PT UNSURE OF REACTION [facility] Work Phone: (20 sources) predniSONE; Translations: [PREDNISONE] Drug Allergy 01-08-[address] [facility] Work Phone: Comment on above: [facility] (20 sources) Sulfonamides (Antibiotic); Translations: [SULFA (SULFONAMIDE ANTIBIOTICS)] Propensity to adverse reactions 01-06-[address] [facility] Work Phone: (3 sources) Sulfonamides (Antibiotic) Allergy to substance 05-26-19 25 PT UNSURE OF REACTION [facility] (2 sources) Triiodobenzoic Acids Allergy to substance 06-27-19 25 Swelling [facility] (2 sources) Doxycycline Drug Allergy 06-27-19 25 [facility] (2 sources) Lisinopril Drug Allergy 06-27-19 25 [facility] (2 sources) Penicillin Drug Allergy 06-27-19 25 [facility] (2 sources) predniSONE Drug Allergy 06-27-19 25 [facility] (2 sources) Sulfonamides (Antibiotic) Drug allergy (disorder) 06-27-19 25 [facility] (1 source) Iodinated Contrast Media Drug allergy (disorder) 07-07-19 25 [facility] Medications Current Medications Medication Drug Class(es) Dates Sig (Normalized) Sig (Original) acetaminophen 500 mg oral capsule (1 source) Start: 07-06-2024 take 2 capsules by mouth every six hours as needed Acetaminophen 500 mg capsule Active 1000 mg PO EVERY 6 HOURS as needed July 06, 2024 12:00am 0.05 ml aflibercept 40 mg/ml injection (20 sources) Vascular Endothelial Growth Factor Inhibitor Start: 05-17-2024 Aflibercept 2 mg/0.05 mL solution Active 2 mg INTRAVIT ONCE May 17, 2024 12:00am Start: 11-19-2021 take 0.05 mL into th e eye(s) once aflibercept opthalmic intravitreal (EYLEA) 2 mg/0.05 mL soln Use 0.05 mL in the left eye one time only for 1 dose. 0.05 mL 11/19/2021 Active Start: 11-19-2021 take 0.05 mL into th e eye(s) once aflibercept opthalmic intravitreal (EYLEA) 2 mg/0.05 mL soln Use 0.05 mL in the left eye one time only for 1 dose. 0.05 mL 0 11/19/2021 Active Comment on above: Use 0.05 mL in the l eft eye one time only for 1 dose. [id number] 200 actuat albuterol 0.09 mg/actuat metered dose inhaler (20 sources) beta2-Adrenergic Agonist Start: 05-17-2024 Albuterol Sulfate 90 mcg/actuation HFA aerosol inhaler Active 2 NMA INHALATION EVERY 4-6 HOURS as needed for SOB May 17, 2024 12:00am Start: 01-27-2021 End: 01-17-2024 take 2 puff(s) by inhalation every four hours as needed for wheezing albuterol HFA (VENTOLIN HFA) 90 mcg/actuation inhaler Inhale 2 Puffs as instructed every 4 hours as needed for wheezing/shortness of breath. 18 g 2 01/18/2024 Active Start: 10-24-2019 End: 01-24-2021 take 2 puff(s) by inhalation every four hours as needed for wheezing albuterol HFA (VENTOLIN HFA) 90 mcg/actuation inhaler Inhale 2 Puffs as instructed every 4 hours as needed for Wheezing/Shortness of Breath. 18 g 2 10/24/2019 01/24/2021 Discontinued Comment on above: Inhale 2 Puffs as in structed every 4 hours as needed for Wheezing/Shortness of Breath. amLODIPine 5 mg oral tablet (20 sources) Dihydropyridine Calcium Channel Diogo Start: 09-01-19 take 1 tablet by mouth once daily amLODIPine (NORVASC) 5 mg tablet Take 1 tablet by mouth once daily. 08/31/2024 Active Start: 06-06-2024 End: 08-31-2024 take 1 tablet by mouth once daily amLODIPine (NORVASC) 2.5 mg tablet Take 1 tablet by mouth once daily. 06/06/2024 08/31/2024 Discontinued (Adjust Sig - Block E-Cancel) Start: 01-18-2023 End: 05-31-2024 take 1 tablet by mouth once daily Amlodipine 10 mg tablet Discontinued 10 mg PO daily May 17, 2024 12:00am May 25, 2024 3:48pm Start: 01-27-2021 End: 01-16-2023 take 1 tablet by mouth once daily amLODIPine (NORVASC) 10 mg tablet Take 1 tablet by mouth once daily. 90 tablet 1 01/29/2022 07/22/2022 Discontinued Start: 07-25-2019 End: 01-24-2021 take 1 tablet by mouth once daily amLODIPine (NORVASC) 10 mg tablet Take 1 tablet by mouth once daily. 90 tablet 1 06/03/2020 01/24/2021 Discontinued Comment on above: Take 1 tablet by johnny th once daily. apixaban 5 mg oral tablet (15 sources) Factor Xa Inhibitor Start: 06-30-19 take 1 tablet by mouth twice daily Apixaban (Eliquis) 5 mg Tablet Active 5 mg PO TWICE A DAY June 29, 2024 12:00am 4 ml bevacizumab 25 mg/ml injection (6 sources) Vascular Endothelial Growth Factor Inhibitor End: 11-20-19 bevacizumab (AVASTIN) 25 mg/mL injection 1.25 mg by INTRAVITREAL route as directed. 0 11/19/2021 Discontinued Comment on above: 1.25 mg by INTRAVITR EAL route as directed. Calcium Carb-Vit D2-Minerals tablet (3 sources) Start: 05-18-19 Calcium Carb-Vit D2-Minerals tablet Active {tbl} PO TWICE A DAY May 17, 2024 12:00am docusate sodium 100 mg oral capsule (20 sources) Start: 05-18-19 take 1 capsule by mouth twice daily Docusate Sodium 100 mg capsule Active 100 mg PO TWICE A DAY May 17, 2024 12:00am Comment on above: Take 100 mg by mouth twice daily. [id number] 0.3 ml EPINEPHrine 1 mg/ml auto-injector (20 sources) alpha-Adrenergic Agonist, beta-Adrenergic Agonist, Catecholamine Start: 05-18-19 Epinephrine 0.3 mg/0.3 mL auto-injector Active 0.3 mg IM every 5 to 15 minutes as needed for bronchodilation May 17, 2024 12:00am do not exceed 3 doses per episode Start: 02-16-2022 End: 07-15-2023 EPINEPHrine (EPIPEN) 0.3 mg/ 0.3 mL auto-injector Indications: Medication refill 0.3 ml subcutaneously as needed for hypersensitivity reaction 2 Each 1 07/15/2023 Active Start: 05-16-2019 End: 06-03-2020 EPINEPHrine (EPIPEN) 0.3 mg/ 0.3 mL auto-injector Indications: Medication refill 0.3 ml subcutaneously as needed for hypersensitivity reaction 2 Each 1 06/03/2020 Active Comment on above: 0.3 ml subcutaneousl y as needed for hypersensitivity reaction ferrous sulfate 325 mg oral tablet (5 sources) Start: 08-09-19 End: 11-07-19 take 1 tablet by mouth once daily ferrous sulfate 325 mg (65 mg iron) tablet Take 1 tablet by mouth once daily. 30 tablet 2 08/08/2024 11/06/2024 Active fluticasone propionate 0.05 mg/actuat metered dose nasal spray (20 sources) Corticosteroid Start: 05-18-19 take 50 ug nasal route once daily Fluticasone Propionate (Allergy Relief (Fluticasone)) 50 mcg/actuation spray,suspension Active 2 NMA INTRANASAL daily May 17, 2024 12:00am administer into each nostril Start: 05-03-2023 take 2 spray(s) nasa l route once daily, then take 1-2 spray(s) nasal route once daily fluticasone (FLONASE) 50 mcg/actuation nasal spray Use 2 Sprays in each nostril once daily. ONE TO TWO SPRAYS TO EACH NOSTRIL ONCE DAILY 3 Each 1 05/03/2023 Active Start: 01-27-2021 End: 05-01-2023 take 2 spray(s) nasal route once daily, then take 1-2 spray(s) nasal route once daily fluticasone (FLONASE) 50 mcg/actuation nasal spray Use 2 Sprays in each nostril once daily. ONE TO TWO SPRAYS TO EACH NOSTRIL ONCE DAILY 3 Each 1 12/04/2021 07/22/2022 Discontinued Start: 04-23-2020 End: 01-24-2021 take 2 spray(s) nasal route once daily, then take 1-2 spray(s) nasal route once daily fluticasone (FLONASE) 50 mcg/actuation nasal spray Use 2 Sprays in each nostril once daily. ONE TO TWO SPRAYS TO EACH NOSTRIL ONCE DAILY 3 Bottle 3 04/23/2020 01/24/2021 Discontinued Comment on above: Use 2 Sprays in each nostril once daily. ONE TO TWO SPRAYS TO EACH NOSTRIL ONCE DAILY ibuprofen 400 mg oral tablet (20 sources) Nonsteroidal Anti-inflammatory Drug Start: 9 End: take 1 tablet by mouth every twelve hours as needed ibuprofen (MOTRIN) 400 mg tablet Take 1 tablet by mouth twice daily as needed for Pain. 01/24/2019 Active Comment on above: Take 1 tablet by johnny th twice daily as needed for Pain. magnesium oxide 400 mg oral tablet (10 sources) Start: End: take 1 tablet by mouth once daily magnesium oxide (MAG-OX) 400 mg (241.3 mg magnesium) tablet Take 1 tablet by mouth once daily. 30 tablet 2 07/10/2024 10/08/2024 Active metoprolol tartrate 100 mg oral tablet (20 sources) beta-Adrenergic Diogo Start: End: take 1 tablet by mouth twice daily metoprolol tartrate, short acting, (LOPRESSOR) 100 mg tablet Take 1 tablet by mouth two times a day. 180 tablet 1 07/06/2024 01/02/2025 Active Start: 05-25-2024 End: 07-06-2024 take 1 tablet by mouth once daily metoprolol succinate ER (TOPROL XL) 50 mg 24 hr tablet Take 1 tablet by mouth once daily. 05/25/2024 07/06/2024 Discontinued (Course of therapy completed) Start: 04-26-2024 End: 07-25-2024 take 1 tablet by mouth once daily Metoprolol Succinate 25 mg tablet extended release 24 hr Discontinued 25 mg PO DAILY June 26, 2024 12:00am July 06, 2024 1:53pm ondansetron 4 mg oral tablet (20 sources) Serotonin-3 Receptor Antagonist Start: 07-06-2024 take 1 tablet by mouth every eight hours as needed Ondansetron 4 mg tablet,disintegrating Active 4 mg PO Q8H as needed July 06, 2024 12:00am Start: 06-16-2024 End: 08-07-2024 take 1 tablet by mouth every eight hours as needed for nausea ondansetron (ZOFRAN) 4 mg tablet Indications: Decreased appetite , Nausea and vomiting, unspecified vomiting type Take 1 tablet by mouth every 8 hours as needed for nausea/vomiting. 30 tablet 06/21/2024 08/07/2024 Discontinued perflutren lipid microspheres 1.3 mL in NaCl (PF) 0.9% 10 mL injection (DEFINITY) (6 sources) Start: 10-23-2020 End: 01-22-2022 perflutren lipid microspheres 1.3 mL in NaCl (PF) 0.9% 10 mL injection (DEFINITY) psyllium 3400 mg powder for oral suspension (20 sources) Start: 03-29-2009 psyllium seed/sucrose(METAMUC IL SMOOTH TEXTURE 28 % PACKET) twicw daily 0 03/29/2009 Active Comment on above: twicw daily Psyllium Seed (Sugar) (Fiber Therapy(Psyl Seed-Sugar)) powder (3 sources) Start: 05-17-2024 Psyllium Seed (Sugar) (Fiber Therapy(Psyl Seed-Sugar)) powder Active 1 tbsp PO TWICE A DAY May 17, 2024 12:00am sennosides, [facility] 8.6 mg oral tablet (15 sources) Start: 07-06-2024 take 1 tablet by mouth every twelve hours as needed Senna 8.6 mg tab Take 1 tablet by mouth two times a day as needed for constipation. 60 tablet 2 07/06/2024 Active Start: 07-06-2024 take 1 capsule by [facility] twice daily Sennosides (Senna) 8.6 mg capsule Active 8.6 mg PO TWICE A DAY July 06, 2024 12:00am 125 ml sodium chloride 9 mg/ ml prefilled syringe (6 sources) Start: 10-23-2020 End: 01-22-2022 sodium chloride 0.9 % (flush ) 10 mL (BD POSIFLUSH) Completed/Discontinued Medications Medication Drug Class(es) Dates Sig (Normalized) Sig (Original) atorvastatin 20 mg oral tablet (20 sources) HMG-CoA Reductase Inhibitor Start: 01-18-2023 End: 08-23-2024 take 1 tablet by mouth once daily at bedtime for hyperlipidemia atorvastatin (LIPITOR) 20 mg tablet Indications: Hyperlipidemia associated with type 2 diabetes mellitus (HCC) Take 1 tablet by mouth daily at bedtime. For cholesterol. 90 tablet 1 01/18/2024 08/23/2024 Discontinued Start: 01-27-2021 End: 01-16-2023 take 1 tablet by mouth once daily at bedtime for hyperlipidemia atorvastatin (LIPITOR) 20 mg tablet Indications: Hyperlipidemia associated with type 2 diabetes mellitus (HCC) (HCC) Take 1 tablet by mouth daily at bedtime. For cholesterol. 90 tablet 1 01/29/2022 07/22/2022 Discontinued Start: 01-29-2020 End: 01-24-2021 take 1 tablet by mouth once daily at bedtime for hyperlipidemia atorvastatin (LIPITOR) 20 mg tablet Indications: Hyperlipidemia associated with type 2 diabetes mellitus (HCC) Take 1 tablet by mouth daily at bedtime. For cholesterol. 90 tablet 3 01/29/2020 01/24/2021 Discontinued Comment on above: Take 1 tablet by johnny th daily at bedtime. For cholesterol. calcium carbonate 600 mg / cholecalciferol 125 unt oral tablet (20 sources) Vitamin D Start: 2005 End: 2024 CALCIUM 600 + D 600 MG-125 UNIT TAB Take one(1) tablet two(2) times daily. 0 06/29/2005 08/08/2024 Discontinued (Course of therapy completed) Comment on above: Take one(1) tablet t wo(2) times daily. hydroCHLOROthiazide 12.5 mg oral capsule (20 sources) Thiazide Diuretic Start: 2024 End: 2024 take 1 capsule by mouth once daily Hydrochlorothiazide 12.5 mg capsule Discontinued 12.5 mg PO DAILY June 26, 2024 12:00am June 29, 2024 2:18pm Start: 05-17-2024 End: 05-25-2024 take 1 capsule by mouth once daily Hydrochlorothiazide 12.5 mg capsule Discontinued 12.5 mg PO daily May 17, 2024 12:00am May 25, 2024 10:36am Start: 01-18-2023 End: 04-26-2024 take 1 capsule by mouth once daily hydroCHLOROthiazide 12.5 mg capsule Indications: Essential hypertension, benign Take 1 capsule by mouth once daily. 90 capsule 1 01/18/2024 04/26/2024 Discontinued (Course of therapy completed) Start: 01-27-2021 End: 01-16-2023 take 1 capsule by mouth once daily hydroCHLOROthiazide (HYDRODIURIL, ESIDRIX) 12.5 mg capsule Indications: Essential hypertension, benign Take 1 capsule by mouth once daily. 90 capsule 1 01/29/2022 07/22/2022 Discontinued Start: 01-29-2020 End: 01-24-2021 take 1 capsule by mouth once daily hydroCHLOROthiazide 12.5 mg capsule Indications: Essential hypertension, benign Take 1 capsule by mouth once daily. 90 capsule 3 01/29/2020 01/24/2021 Discontinued Comment on above: Take 1 capsule by mo ut once daily. hydrocortisone 25 mg/ml topical cream (12 sources) Corticosteroid Start: 06-28-2024 End: 07-13-2024 hydrocortisone (ANUSOL-HC) 2.5 % rectal cream Indications: External hemorrhoids by RECTAL route two times a day for 7 days. 28 g 1 07/06/2024 07/13/2024 Start: 04-27-2024 End: 05-04-2024 hydrocortisone (ANUSOL-HC) 2 .5 % rectal cream Indications: External hemorrhoids by RECTAL route two times a day for 7 days. 28 g 04/27/2024 05/04/2024 Active losartan potassium 100 mg oral tablet (20 sources) Angiotensin 2 Receptor Diogo Start: 01-18-2023 End: 07-06-2024 take 1 tablet by mouth once daily losartan (COZAAR) 100 mg tablet Indications: Essential hypertension, benign Take 1 tablet by mouth once daily. 90 tablet 1 01/18/2024 07/06/2024 Discontinued (Course of therapy completed) Start: 01-27-2021 End: 01-16-2023 take 1 tablet by mouth once daily losartan (COZAAR) 100 mg tablet Indications: Essential hypertension, benign Take 1 tablet by mouth once daily. 90 tablet 1 01/29/2022 07/22/2022 Discontinued Start: 10-24-2019 End: 10-20-2020 take 1 tablet by mouth once daily losartan (COZAAR) 100 mg tablet Indications: Essential hypertension, benign Take 1 tablet by mouth once daily. 90 tablet 3 10/24/2019 10/20/2020 Discontinued Comment on above: Take 1 tablet by johnny once daily. magnesium chloride 598 mg delayed release oral tablet (2 sources) Start: 5 End: take 2 tablets by mouth once daily Magnesium Chloride (SLOW-MAG) 71.5 mg TbEC Take 2 tablets by mouth once daily. 60 tablet 2 07/07/2024 07/10/2024 Discontinued (Course of therapy completed) magnesium citrate 58.2 mg/ml oral solution (1 source) Start: End: take 296 mL by mouth once magnesium citrate solution Indications: Acute constipation Take 296 mL by mouth one time only for 1 dose. 296 mL 06/24/2024 06/24/2024 metFORMIN hydrochloride 500 mg oral tablet (20 sources) Biguanide Start: 3 End: take 2 tablets by mouth twice daily at mealtime metFORMIN (GLUCOPHAGE) 500 mg tablet Take 2 tablets by mouth two times a day with meals. . 360 tablet 1 01/18/2024 07/26/2024 Discontinued Start: 01-27-2021 End: 01-16-2023 take 2 tablets by mouth twice daily at mealtime metFORMIN (GLUCOPHAGE) 500 mg tablet Take 2 tablets by mouth twice daily with meals. . 360 tablet 1 01/29/2022 07/22/2022 Discontinued Start: 01-29-2020 End: 01-24-2021 take 2 tablets by mouth twice daily at mealtime metFORMIN (GLUCOPHAGE) 500 mg tablet Take 2 tablets by mouth twice daily with meals. . 360 tablet 3 01/29/2020 01/24/2021 Discontinued Start: 01-24-2019 End: 10-23-2020 take 1 tablet by mouth twice daily at mealtime metFORMIN (GLUCOPHAGE) 1,000 mg tablet Take 1 tablet by mouth twice daily with meals. 180 tablet 3 01/24/2019 10/23/2020 Discontinued Comment on above: Take 1 tablet by johnny twice daily with meals. Take 2 tablets by mo ut twice daily with meals. . Take 2 tablets by mo ut two times a day with meals. . Problems Active Problems Problem Classification Problem Date Documented Da te Episodic/Chronic Acquired foot deformities (3 sources) Hammer toe; Translations: [Other hammer toe(s) (acquired), left foot] Onset: 5 05-31-2024 Chronic Acute and unspecified renal failure (2 sources) Acute renal failure syndrome; Translations: [Acute kidney failure, unspecified] Onset: 5 07-06-2024 Episodic Acute myocardial infarction (4 sources) Myocardial infarction; Translations: [Myocardial infarction type 2] 06-26-2024 Chronic Administrative/social admission (2 sources) Repeated prescription; Translations: [Encounter for issue of repeat prescription] Episodic Aortic; peripheral; and visceral artery aneurysms (16 sources) Aneurysm of ascending aorta; Translations: [Aneurysm of ascending aorta without rupture] 07-06-2024 Chronic Cardiac dysrhythmias (20 sources) Ectopic beats; Translations: [Other premature depolarization] Onset: 5 05-25-2024 Chronic Complications of surgical procedures or medical care (2 sources) Non dose-related adverse reaction to medication; Translations: [Unspecified adverse effect of drug or medicament, subsequent encounter] Onset: 5 07-06-2024 Episodic Deficiency and other anemia (1 source) Iron deficiency anemia; Translations: [Iron deficiency anemia, unspecified] 08-08-2024 Episodic Deficiency and other anemia (1 source) Anemia, unspecified; Translations: [Normocytic anemia] Onset: Episodic Delirium, dementia, and amnestic and other cognitive disorders (2 sources) Senile asthenia; Translations: [Age-related physical debility] Onset: 5 08-07-2024 Chronic Diabetes mellitus with complications (20 sources) Diabetes mellitus; Translations: [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] Onset: 8 Resolved: 4 Chronic Diabetes mellitus without complication (3 sources) Type 2 diabetes mellitus; Translations: [Type 2 diabetes mellitus without complications] Onset: 5 06-21-2024 Chronic Diseases of white blood cells (2 sources) Leukocytosis; Translations: [Elevated white blood cell count, unspecified] Onset: 5 08-07-2024 Chronic Disorders of lipid metabolism (20 sources) Hyperlipidemia; Translations: [Hyperlipidemia, unspecified] Onset: 6 Resolved: 5 Chronic E Codes: Adverse effects of medical drugs (3 sources) Adverse reaction to drug; Translations: [Adverse effect of unspecified drugs, medicaments and biological substances, initial encounter] Onset: 5 06-27-2024 Episodic Esophageal disorders (3 sources) Gastroesophageal reflux disease; Translations: [Gastro-esophageal reflux disease without esophagitis] 05-17-2024 Chronic Essential hypertension (20 sources) Benign essential hypertension; Translations: [Essential (primary) hypertension] Onset: 6 Chronic Fluid and electrolyte disorders (4 sources) Lactic acidosis; Translations: [Lactic acidosis] 06-26-2024 Episodic Heart valve disorders (20 sources) Aortic ejection murmur; Translations: [Nonrheumatic aortic (valve) insufficiency] Onset: 5 04-06-2014 Chronic Heart valve disorders (1 source) Ejection murmur; Translations: [Cardiac murmur, unspecified] 04-19-2024 Episodic Intestinal infection (2 sources) Viral gastroenteritis; Translations: [Viral intestinal infection, unspecified] Onset: 5 06-21-2024 Episodic Intestinal obstruction without hernia (2 sources) Fecal impaction; Translations: [Fecal impaction] Onset: 5 07-06-2024 Episodic Joint disorders and dislocations; trauma-related (2 sources) Knee joint laxity; Translations: [Other internal derangements of left knee] Chronic Nausea and vomiting (9 sources) Nausea and vomiting; Translations: [Nausea with vomiting, unspecified] Onset: 5 06-21-2024 Episodic Neoplasms of unspecified nature or uncertain behavior (1 source) Thrombocytosis; Translations: [Thrombocytosis] Episodic Osteoarthritis (20 sources) Bilateral arthritis of knees; Translations: [Bilateral primary osteoarthritis of knee] Onset: 7 Chronic Other aftercare (1 source) Long-term current use of anticoagulant; Translations: [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] 07-06-2024 Episodic Other aftercare (1 source) 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; Translations: [Chronic anticoagulation] Onset: 05-29-202 5 Episodic Other bone disease and musculoskeletal deformities (4 sources) Disorder of bone; Translations: [Disorder of bone, unspecified] 04-18-2024 Episodic Other diseases of veins and lymphatics (2 sources) Lymphocele; Translations: [Other specified noninfective disorders of lymphatic vessels and lymph nodes] 06-27-2024 Chronic Other diseases of veins and lymphatics (1 source) Other specified noninfective disorders of lymphatic vessels and lymph nodes; Translations: [Other specified noninfective disorders of lymphatic vessels and lymph nodes] Onset: Chronic Other ear and sense organ disorders (1 source) Bilateral hearing loss; Translations: [Unspecified hearing loss, bilateral] Chronic Other ear and sense organ disorders (1 source) Does use hearing aid; Translations: [Presence of external hearing-aid] 11-25-2022 Episodic Other gastrointestinal disorders (9 sources) Acute constipation; Translations: [Constipation, unspecified] 04-27-2024 Episodic Other gastrointestinal disorders (5 sources) Constipation; Translations: [Constipation, unspecified] 06-26-2024 Episodic Other gastrointestinal disorders (3 sources) Constipation, unspecified; Translations: [Constipation, unspecified constipation type] Onset: Episodic Other nervous system disorders (2 sources) Toxic metabolic encephalopathy; Translations: [Toxic metabolic encephalopathy] 06-27-2024 Episodic Other non-traumatic joint disorders (2 sources) Pain in left knee; Translations: [Pain in joint, lower leg] Episodic Other nutritional; endocrine; and metabolic disorders (4 sources) Hypercalcemia; Translations: [Hypercalcemia] 05-28-2023 Chronic Other nutritional; endocrine; and metabolic disorders (1 source) Hypomagnesemia; Translations: [Hypomagnesemia] 07-10-2024 Chronic Other nutritional; endocrine; and metabolic disorders (1 source) Hypomagnesemia; Translations: [Hypomagnesemia] Onset: Chronic Other nutritional; endocrine; and metabolic disorders (1 source) Hypercalcemia; Translations: [Hypercalcemia] Onset: Chronic Other nutritional; endocrine; and metabolic disorders (5 sources) Loss of appetite; Translations: [Anorexia] 04-18-2024 Episodic Other nutritional; endocrine; and metabolic disorders (6 sources) Unintentional weight loss; Translations: [Abnormal weight loss] 04-18-2024 Episodic Other nutritional; endocrine; and metabolic disorders (2 sources) Decrease in appetite; Translations: [Anorexia] 06-21-2024 Episodic Other nutritional; endocrine; and metabolic disorders (2 sources) Anorexia; Translations: [Decreased appetite] Onset: 5 Episodic Other upper respiratory disease (20 sources) Vasomotor rhinitis; Translations: [Vasomotor rhinitis] Onset: 5 04-06-2014 Chronic Sandhya-; endo-; and myocarditis; cardiomyopathy (except that caused by tuberculosis or sexually transmitted disease) (9 sources) Ejection murmur; 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] Onset: 5 04-19-2024 Chronic Residual codes; unclassified (4 sources) Pale complexion; Translations: [Pallor] 04-18-2024 Episodic Residual codes; unclassified (1 source) Delirium; Translations: [Disorientation, unspecified] 07-06-2024 Episodic Residual codes; unclassified (1 source) Disorientation, unspecified; Translations: [Delirium] Onset: Episodic Spondylosis; intervertebral disc disorders; other back problems (20 sources) Intervertebral disc disorder of lumbar region with myelopathy; Translations: [Intervertebral disc disorders with myelopathy, lumbar region] Onset: 8 11-17-2007 Chronic Unclassified (1 source) Aneurysm of ascending aorta without rupture; Translations: [Aneurysm of ascending aorta without rupture] Onset: 5 Unclassified (1 source) Other toxic encephalopathy; 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] Onset: 5 Past or Other Problems Problem Classification Problem Date Documented Da te Episodic/Chronic Gastrointestinal hemorrhage (2 sources) Gastrointestinal hemorrhage; Translations: [Hemorrhage of anus and rectum] Onset: 5 04-27-2024 Episodic Hemorrhoids (20 sources) External hemorrhoids; Translations: [Residual hemorrhoidal skin tags] Onset: 5 Resolved: 5 03-08-2014 Episodic Immunizations and screening for infectious disease (3 sources) Needs influenza immunization; Translations: [Encounter for immunization] Onset: Episodic Malaise and fatigue (12 sources) Fatigue; Translations: [Other fatigue] Onset: 5 04-18-2024 Episodic Other bone disease and musculoskeletal deformities (1 source) Disorder of bone, unspecified; Translations: [Disorder of bone, unspecified] Onset: 5 Episodic Other diseases of kidney and ureters (20 sources) Cyst of kidney; Translations: [Cyst of kidney, acquired] Onset: 6 07-14-2017 Episodic Other diseases of veins and lymphatics (20 sources) Peripheral venous insufficiency; Translations: [Venous insufficiency (chronic) (peripheral)] Onset: 2 08-13-2011 Episodic Other gastrointestinal disorders (20 sources) Groin mass; Translations: [Other intra-abdominal and pelvic swelling, mass and lump] Onset: 6 12-02-2015 Episodic Other nutritional; endocrine; and metabolic disorders (2 sources) Abnormal weight loss; Translations: [Weight loss, unintentional] Onset: 5 Episodic Other screening for suspected conditions (not mental disorders or infectious disease) (20 sources) Patient encounter status; Translations: [Encounter for screening for malignant neoplasm of intestinal tract, unspecified] Onset: 6 01-10-2016 Episodic Other upper respiratory disease (20 sources) Disorder of vocal cord; Translations: [Other diseases of vocal cords] Onset: 8 11-17-2007 Episodic Retinal detachments; defects; vascular occlusion; and retinopathy (20 sources) Retinal hemorrhage; Translations: [Retinal hemorrhage, unspecified eye] Onset: 1 Resolved: 8 01-13-2018 Chronic Results Test Name Value Interpretation Reference Range Facility [facility] 08-30-2024 [facility] Telephone (DAMIWS) MONISHA FITZPATRICK ([id number]) 1945 F Date Time Provider Department 08/30/24 DEONTE HAM[facility] During your visit today, we recorded the following information about you: Hayde Romero LPN 08/30/2024 3:12 PM Signed Alysa from [facility] calling to extend retirement visits 1 time weekly for 3 weeks, due to elevated blood pressure. Patient is anxious about stress test scheduled for 09/08. She [facility]. BP 180/96 pulse 72, waiting for response from [facility]. Deonte Hamm MD 08/31/2024 8:01 AM Signed Reviewed. Has she been compliant with her medications. Any high BP symptoms such as headache, vision changes, chest pain, Shortness of Breath, or leg swelling? Didi Castillo MA 08/31/2024 10:29 AM Signed Pt son Christopher reports pts BP this AM 143/84. Pt is compliant with her meds. I spoke with patient and she reports no sx. [facility] increased amlodipine to 5mg. Son will check pts bp this afternoon and update office. LUIS ANTONIO Urban Christopher B, MD 08/31/2024 10:43 AM Signed I have updated her medication list to reflect this change. Please update us this afternoon. Ghislaine Walsh RN 08/31/2024 2:15 PM Signed Pt phoned to let pcp know her BP at 2 pm today was 134/79 (84). Reports this morning BP 143/84. Reports she never had symptoms was high BP yesterday and doesn't have any symptoms today. Reports she is feeling good. Deonte Hamm MD 08/31/2024 2:36 PM Signed Much better. Continue 5 mg of amlodipine as prescribed and she should be monitoring BP at home with goal less than 140/90 and above 100/60. Renetta Joshi MA 08/31/2024 2:44 PM Signed Pt notified and verbalized understanding Renetta oJshi MA Allergies As of Date: 08/30/2024 Noted Allergy Reaction LISINOPRIL 02/06/2012 7 - Swelling Comments: angioedema DOXYCYCLINE 05/18/2017 8 - GI Upset Comments: Nausea w/o vomiting, bad taste PENICILLIN G 01/05/2005 PREDNISONE 01/07/2005 Comments: JITTERY SULFA (SULFONAMIDE ANTIBIOTICS) 01/05/2005 Date Reviewed: 08/07/2024 Reviewed by: Sherry Escamilla MA - Fully Assessed Reason for Visit: extending skilled nurse visits [Other] Order(s):amLODIPine (NORVASC) 5 mg tabletTake 1 tablet by mouth once daily.Disp: Rfl: Prescriptions as of 08/31/2024 - amLODIPine (NORVASC) 5 mg tablet Take 1 tablet by mouth once daily. - atorvastatin (LIPITOR) 20 mg tablet Take 1 tablet by mouth daily at bedtime. For cholesterol. - ferrous sulfate 325 mg (65 mg iron) tablet Take 1 tablet by mouth once daily. - ondansetron (ZOFRAN) 4 mg tablet Take 1 tablet by mouth every 8 hours as needed for nausea/vomiting. - metFORMIN (GLUCOPHAGE) 500 mg tablet Take 2 tablets by mouth two times a day with meals. . - magnesium oxide (MAG-OX) 400 mg (241.3 mg magnesium) tablet Take 1 tablet by mouth once daily. - apixaban (ELIQUIS) 5 mg tab(s) Take 5 mg by mouth two times a day. - Senna 8.6 mg tab Take 1 tablet by mouth two times a day as needed for constipation. - metoprolol tartrate, short acting, (LOPRESSOR) 100 mg tablet Take 1 tablet by mouth two times a day. - blood sugar diagnostic (ACCU-CHEK FAISAL) test strip Test blood sugar(s) one time daily. Dx: E11.9. Insulin: No - albuterol HFA (VENTOLIN HFA) 90 mcg/actuation inhaler Inhale 2 Puffs as instructed every 4 hours as needed for wheezing/shortness of breath. - EPINEPHrine (EPIPEN) 0.3 mg/0.3 mL auto-injector 0.3 ml subcutaneously as needed for hypersensitivity reaction - fluticasone (FLONASE) 50 mcg/actuation nasal spray Use 2 Sprays in each nostril once daily. ONE TO TWO SPRAYS TO EACH NOSTRIL ONCE DAILY - Lancing Device with Lancets (ACCU-CHEK FASTCLIX LANCING DEV) 1 Each as directed. Use as directed. DX: E11.9, Insulin: No - aflibercept opthalmic intravitreal (EYLEA) 2 mg/0.05 mL soln Use 0.05 mL in the left eye one time only for 1 dose. - Lancets (ACCU-CHEK MULTICLIX LANCET) lancets 1 Each as directed. daily. Use as instructed. Dx 250.00 No insulin - ibuprofen (MOTRIN) 400 mg tablet Take 1 tablet by mouth twice daily as needed for Pain. - docusate sodium (COLACE) 100 mg capsule Take 100 mg by mouth twice daily. - psyllium seed/sucrose(METAMUCIL SMOOTH TEXTURE 28 % PACKET) twicw daily Problem List As Of Date 08/30/2024 Noted Resolved HYPERLIPIDEMIA NEC/NOS [E78.5] 05/12/2005 11/16/2014 BENIGN HYPERTENSION [I10] 05/12/2005 External hemorrhoids without mention of complic* 03/08/2014 Internal hemorrhoids without mention of complic* 03/08/2014 Type II or unspecified type diabetes mellitus w*10/10/2007 02/23/2013 LUMB DISC DIS W MYELOPAT [M51.06] 11/17/2007 VOCAL CORD DISEASE NEC [J38.3] 11/17/2007 Retinal hemorrhage [H35.60] 07/19/2010 01/13/2018 Venous (peripheral) insufficiency [I87.2] 08/13/2011 Nonproliferative (more content not included)... Normal [facility] CNPNon 08-14-2024 CNPN Telephone (FAMPWS) MONISHA FITZPATRICK ([id number]) 1945 F Date Time Provider Department 08/14/24 [facility] During your visit today, we recorded the following information about you: Sol Veras, RN 08/14/2024 10:24 AM Signed Viv PT with [facility] calling plan of care for pt. 2x/wk for 3 wks for lower extremity strength, gait training and balance. Allergies As of Date: 08/14/2024 Noted Allergy Reaction LISINOPRIL 02/06/2012 7 - Swelling Comments: angioedema DOXYCYCLINE 05/18/2017 8 - GI Upset Comments: Nausea w/o vomiting, bad taste PENICILLIN G 01/05/2005 PREDNISONE 01/07/2005 Comments: ROMEL SULFA (SULFONAMIDE ANTIBIOTICS) 01/05/2005 Date Reviewed: 08/07/2024 Reviewed by: Sherry Escamilla MA - Fully Assessed Reason for Visit: Home Care Management [1305] Cmt: for physical therapy Prescriptions as of 08/14/2024 - ferrous sulfate 325 mg (65 mg iron) tablet Take 1 tablet by mouth once daily. - ondansetron (ZOFRAN) 4 mg tablet Take 1 tablet by mouth every 8 hours as needed for nausea/vomiting. - metFORMIN (GLUCOPHAGE) 500 mg tablet Take 2 tablets by mouth two times a day with meals. . - magnesium oxide (MAG-OX) 400 mg (241.3 mg magnesium) tablet Take 1 tablet by mouth once daily. - apixaban (ELIQUIS) 5 mg tab(s) Take 5 mg by mouth two times a day. - Senna 8.6 mg tab Take 1 tablet by mouth two times a day as needed for constipation. - metoprolol tartrate, short acting, (LOPRESSOR) 100 mg tablet Take 1 tablet by mouth two times a day. - amLODIPine (NORVASC) 2.5 mg tablet Take 1 tablet by mouth once daily. - blood sugar diagnostic (ACCU-CHEK FAISAL) test strip Test blood sugar(s) one time daily. Dx: E11.9. Insulin: No - albuterol HFA (VENTOLIN HFA) 90 mcg/actuation inhaler Inhale 2 Puffs as instructed every 4 hours as needed for wheezing/shortness of breath. - atorvastatin (LIPITOR) 20 mg tablet Take 1 tablet by mouth daily at bedtime. For cholesterol. - EPINEPHrine (EPIPEN) 0.3 mg/0.3 mL auto-injector 0.3 ml subcutaneously as needed for hypersensitivity reaction - fluticasone (FLONASE) 50 mcg/actuation nasal spray Use 2 Sprays in each nostril once daily. ONE TO TWO SPRAYS TO EACH NOSTRIL ONCE DAILY - Lancing Device with Lancets (ACCU-CHEK FASTCLIX LANCING DEV) 1 Each as directed. Use as directed. DX: E11.9, Insulin: No - aflibercept opthalmic intravitreal (EYLEA) 2 mg/0.05 mL soln Use 0.05 mL in the left eye one time only for 1 dose. - Lancets (ACCU-CHEK MULTICLIX LANCET) lancets 1 Each as directed. daily. Use as instructed. Dx 250.00 No insulin - ibuprofen (MOTRIN) 400 mg tablet Take 1 tablet by mouth twice daily as needed for Pain. - docusate sodium (COLACE) 100 mg capsule Take 100 mg by mouth twice daily. - psyllium seed/sucrose(METAMUCIL SMOOTH TEXTURE 28 % PACKET) twicw daily Problem List As Of Date 08/14/2024 Noted Resolved HYPERLIPIDEMIA NEC/NOS [E78.5] 05/12/2005 11/16/2014 BENIGN HYPERTENSION [I10] 05/12/2005 External hemorrhoids without mention of complic* 03/08/2014 Internal hemorrhoids without mention of complic* 03/08/2014 Type II or unspecified type diabetes mellitus w*10/10/2007 02/23/2013 LUMB DISC DIS W MYELOPAT [M51.06] 11/17/2007 VOCAL CORD DISEASE NEC [J38.3] 11/17/2007 Retinal hemorrhage [H35.60] 07/19/2010 01/13/2018 Venous (peripheral) insufficiency [I87.2] 08/13/2011 Nonproliferative diabetic retinopathy of both e*02/23/2013 Diabetes mellitus with macular edema, both eyes*02/23/2013 Vasomotor rhinitis [J30.0] 04/06/2014 Aortic ejection murmur [I35.1] 04/06/2014 Hyperlipidemia LDL goal <100 [E78.5] 11/22/2015 Groin mass in female [R19.09] 12/02/2015 Renal cyst [N28.1] 12/25/2015 Screening for intestinal cancer [Z12.10] 01/10/2016 Arthritis of both knees [M17.0] 01/14/2017 Atrial fibrillation (HCC) [I48.91] Aneurysm, thoracic aortic [I71.20] Encounter Status:Closed by SOL VERAS on 08/14/24 [facility] Karla 08-08-2024 CNPN Telephone (FAMPWS) AMARIMONISHA Yuli ([id number]) 1945 F Date Time Provider Department 08/08/24 DEONTE HAMM During your visit today, we recorded the following information about you: Hayde Romero LPN 08/08/2024 3:21 PM Signed Viv from [facility] calling requesting a verbal order for retirement to begin tomorrow, since patient has afib and nausea issues. Please advise Deonte Hamm MD 08/09/2024 6:52 AM Signed Ok for verbal order for SN Lucia Ambrose RN 08/09/2024 12:58 PM Signed Called and left a detailed voicemail [facility] Clinic phone number was left in case she had any questions. Lucia Ambrose RN Allergies As of Date: 08/08/2024 Noted Allergy Reaction LISINOPRIL 02/06/2012 7 - Swelling Comments: angioedema DOXYCYCLINE 05/18/2017 8 - GI Upset Comments: Nausea w/o vomiting, bad taste PENICILLIN G 01/05/2005 PREDNISONE 01/07/2005 Comments: JITTERY SULFA (SULFONAMIDE ANTIBIOTICS) 01/05/2005 Date Reviewed: 08/07/2024 Reviewed by: Sherry Escamilla MA - Fully Assessed Reason for Visit: requesting verbal order for retirement [Other] Prescriptions as of 08/09/2024 - ferrous sulfate 325 mg (65 mg iron) tablet Take 1 tablet by mouth once daily. - ondansetron (ZOFRAN) 4 mg tablet Take 1 tablet by mouth every 8 hours as needed for nausea/vomiting. - metFORMIN (GLUCOPHAGE) 500 mg tablet Take 2 tablets by mouth two times a day with meals. . - magnesium oxide (MAG-OX) 400 mg (241.3 mg magnesium) tablet Take 1 tablet by mouth once daily. - apixaban (ELIQUIS) 5 mg tab(s) Take 5 mg by mouth two times a day. - Senna 8.6 mg tab Take 1 tablet by mouth two times a day as needed for constipation. - metoprolol tartrate, short acting, (LOPRESSOR) 100 mg tablet Take 1 tablet by mouth two times a day. - amLODIPine (NORVASC) 2.5 mg tablet Take 1 tablet by mouth once daily. - blood sugar diagnostic (ACCU-CHEK FAISAL) test strip Test blood sugar(s) one time daily. Dx: E11.9. Insulin: No - albuterol HFA (VENTOLIN HFA) 90 mcg/actuation inhaler Inhale 2 Puffs as instructed every 4 hours as needed for wheezing/shortness of breath. - atorvastatin (LIPITOR) 20 mg tablet Take 1 tablet by mouth daily at bedtime. For cholesterol. - EPINEPHrine (EPIPEN) 0.3 mg/0.3 mL auto-injector 0.3 ml subcutaneously as needed for hypersensitivity reaction - fluticasone (FLONASE) 50 mcg/actuation nasal spray Use 2 Sprays in each nostril once daily. ONE TO TWO SPRAYS TO EACH NOSTRIL ONCE DAILY - Lancing Device with Lancets (ACCU-CHEK FASTCLIX LANCING DEV) 1 Each as directed. Use as directed. DX: E11.9, Insulin: No - aflibercept opthalmic intravitreal (EYLEA) 2 mg/0.05 mL soln Use 0.05 mL in the left eye one time only for 1 dose. - Lancets (ACCU-CHEK MULTICLIX LANCET) lancets 1 Each as directed. daily. Use as instructed. Dx 250.00 No insulin - ibuprofen (MOTRIN) 400 mg tablet Take 1 tablet by mouth twice daily as needed for Pain. - docusate sodium (COLACE) 100 mg capsule Take 100 mg by mouth twice daily. - psyllium seed/sucrose(METAMUCIL SMOOTH TEXTURE 28 % PACKET) twicw daily Problem List As Of Date 08/08/2024 Noted Resolved HYPERLIPIDEMIA NEC/NOS [E78.5] 05/12/2005 11/16/2014 BENIGN HYPERTENSION [I10] 05/12/2005 External hemorrhoids without mention of complic* 03/08/2014 Internal hemorrhoids without mention of complic* 03/08/2014 Type II or unspecified type diabetes mellitus w*10/10/2007 02/23/2013 LUMB DISC DIS W MYELOPAT [M51.06] 11/17/2007 VOCAL CORD DISEASE NEC [J38.3] 11/17/2007 Retinal hemorrhage [H35.60] 07/19/2010 01/13/2018 Venous (peripheral) insufficiency [I87.2] 08/13/2011 Nonproliferative diabetic retinopathy of both e*02/23/2013 Diabetes mellitus with macular edema, both eyes*02/23/2013 Vasomotor rhinitis [J30.0] 04/06/2014 Aortic ejection murmur [I35.1] 04/06/2014 Hyperlipidemia LDL goal <100 [E78.5] 11/22/2015 Groin mass in female [R19.09] 12/02/2015 Renal cyst [N28.1] 12/25/2015 Screening for intestinal cancer [Z12.10] 01/10/2016 Arthritis of both knees [M17.0] 01/14/2017 Atrial fibrillation (HCC) [I48.91] Aneurysm, thoracic aortic [I71.20] Encounter Status:Closed by LUCIA AMBROSE on 08/09/24 Normal [facility] CBC W Auto Differential pane l (Bld)on 08-07-2024 Basophils (Bld) [#/Vol] 0.07 10*3/uL [facility] Basophils/100 WBC (Bld) 0.8 % [facility] Differential cell count method Nom (Bld) Auto [facility] Eosinophils (Bld) [#/Vol] 0.09 10*3/uL [facility] Eosinophils/100 WBC (Bld) 1 % [facility] Erythrocyte distribution width (RBC) [Ratio] 14.5 % 11.5 - 15.0 % [facility] Hematocrit (Bld) [Volume fraction] 32.8 % Low 36.0 - 46.0 % [facility] Hemoglobin (Bld) [Mass/Vol] 10.7 g/dL Low 11.5 - 15.5 g/dL [facility] Immature granulocytes (Bld) [#/Vol] 0.03 10*3/uL [facility] Immature granulocytes/100 WBC (Bld) 0.3 % [facility] Interpretation and review of laboratory results Abnormal [facility] Lymphocytes (Bld) [#/Vol] 1.39 10*3/uL [facility] Lymphocytes/100 WBC (Bld) 15.7 % [facility] MCH (RBC) [Entitic mass] 29.6 pg 26.0 - 34.[address] [facility] MCHC (RBC) [Mass/Vol] 32.6 g/dL 30.5 - 36.0 g/dL [facility] MCV (RBC) [Entitic vol] 90.9 fL 80.0 - 100.[address] [facility] Monocytes (Bld) [#/Vol] 0.72 10*3/uL [facility] Monocytes/100 WBC (Bld) 8.1 % [facility] Neutrophils (Bld) [#/Vol] 6.56 10*3/uL [facility] Neutrophils/100 WBC (Bld) 74.1 % [facility] Nucleated [facility] (Bld) [#/Vol[facility] Nucleated RBC/100 WBC (Bld) [Ratio] 0 % /[address] [facility] Platelet mean volume (Bld) [Entitic vol] 10.4 fL 9.0 - 12.[address] [facility] Platelets (Bld) [#/Vol] 344 10*3/uL [facility] RBC (Bld) [#/Vol] 3.61 10*6/uL Low 3.90 - 5.2 0 m/uL [facility] WBC (Bld) [#/Vol] 8.86 10*3/uL [facility] Basophils (Bld) [#/Vol] 0.07 10*3/uL Normal <0.11 [facility] Comment on above: Order Comment: Speci men Type: BLOOD SPECIMENOrdering Facility: [facility] Address: [address] [place] [address] Performed By: #### 5 7021-8 ####[facility] LABCLIA [id number] [facility] [id number] [place] Basophils/100 WBC (Bld) 0.8 % Normal [facility] Comment on above: Order Comment: Speci men Type: BLOOD SPECIMENOrdering Facility: [facility] Address: [address] [place] [address] Performed By: #### 5 7021-8 ####[facility] LABCLIA [id number] [place] [address] [place] Differential cell count method Nom (Bld) Auto Normal [facility] Comment on above: Order Comment: Speci men Type: BLOOD SPECIMENOrdering Facility: [facility] Address: [address] [place] [address] Performed By: #### 5 7021-8 ####[facility] LABCLIA [id number] [place] [address] [place] Eosinophils (Bld) [#/Vol] 0.09 10*3/uL Normal <0.46 [facility] Comment on above: Order Comment: Speci men Type: BLOOD SPECIMENOrdering Facility: [facility] Address: [address] [place] [address] Performed By: #### 5 7021-8 ####[facility] LABCLIA [id number] [place] [address] [place] Eosinophils/100 WBC (Bld) 1.0 % Normal [facility] Comment on above: Order Comment: Speci men Type: BLOOD SPECIMENOrdering Facility: [facility] Address: [address] [place] [address] Performed By: #### 5 7021-8 ####[facility] LABCLIA [id number] [place] [address] [place] Erythrocyte distribution width (RBC) [Ratio] 14.5 % Normal 11.5-15.0 [facility] Comment on above: Order Comment: Speci men Type: BLOOD SPECIMENOrdering Facility: [facility] Address: [address] [place] [address] Performed By: #### 5 7021-8 ####[facility] LABCLIA [id number] [place] [address] [place] Hematocrit (Bld) [Volume fraction] 32.8 % Low 36.0-46.0 [facility] Comment on above: Order Comment: Speci men Type: BLOOD SPECIMENOrdering Facility: [facility] Address: [address] [place] [address] Performed By: #### 5 7021-8 ####[facility] LABCLIA [id number] [place] [address] [place] Hemoglobin (Bld) [Mass/Vol] 10.7 g/dL Low 11.5-15.5 [facility] Comment on above: Order Comment: Speci men Type: BLOOD SPECIMENOrdering Facility: [facility] Address: [address] [place] [address] Performed By: #### 5 7021-8 ####[facility] LABCLIA [id number] [place] [address] [place] Immature granulocytes (Bld) [#/Vol] 0.03 10*3/uL Normal <0.10 [facility] Comment on above: Order Comment: Speci men Type: BLOOD SPECIMENOrdering Facility: [facility] Address: [address] [place] [address] Performed By: #### 5 7021-8 ####[facility] LABCLIA [id number] [place] [address] [place] Immature granulocytes/100 WBC (Bld) 0.3 % Normal [facility] Comment on above: Order Comment: Speci men Type: BLOOD SPECIMENOrdering Facility: [facility] Address: [address] [place] [address] Performed By: #### 5 7021-8 ####[facility] LABCLIA [id number] [place] [address] [place] Lymphocytes (Bld) [#/Vol] 1.39 10*3/uL Normal 1.00-4.00 [facility] Comment on above: Order Comment: Speci men Type: BLOOD SPECIMENOrdering Facility: [facility] Address: [address] [place] [address] Performed By: #### 5 7021-8 ####[facility] LABCLIA [id number] [place] [address] [place] Lymphocytes/100 WBC (Bld) 15.7 % Normal [facility] Comment on above: Order Comment: Speci men Type: BLOOD SPECIMENOrdering Facility: [facility] Address: [address] [place] [address] Performed By: #### 5 7021-8 ####[facility] LABCLIA [id number] [place] [address] [place] MCH (RBC) [Entitic mass] 29.6 pg Normal 26.0-34.0 [facility] Comment on above: Order Comment: Speci men Type: BLOOD SPECIMENOrdering Facility: [facility] Address: [address] [place] [address] Performed By: #### 5 7021-8 ####[facility] LABCLIA [id number] [place] [address] [place] MCHC (RBC) [Mass/Vol] 32.6 g/dL Normal 30.5-36.0 [facility] Comment on above: Order Comment: Speci men Type: BLOOD SPECIMENOrdering Facility: [facility] Address: [address] [place] [address] Performed By: #### 5 7021-8 ####[facility] LABIA [id number] [place] [address] [place] MCV (RBC) [Entitic vol] 90.9 fL Normal 80.0-100.0 [facility] Comment on above: Order Comment: Speci men Type: BLOOD SPECIMENOrdering Facility: [facility] Address: [address] [place] [address] Performed By: #### 5 7021-8 ####[facility] LABCLIA [id number] [place] [address] [place] Monocytes (Bld) [#/Vol] 0.72 10*3/uL Normal <0.87 [facility] Comment on above: Order Comment: Speci men Type: BLOOD SPECIMENOrdering Facility: [facility] Address: [address] [place] [address] Performed By: #### 5 7021-8 ####[facility] LABCLIA [id number] [address] [address] [place] Monocytes/100 WBC (Bld) 8.1 % Normal [facility] Comment on above: Order Comment: Speci men Type: BLOOD SPECIMENOrdering Facility: [facility] Address: [address] [place] [address] Performed By: #### 5 7021-8 ####[facility] LABCLIA [id number] [place] [address] [place] Neutrophils (Bld) [#/Vol] 6.56 10*3/uL Normal 1.45-7.50 [facility] Comment on above: Order Comment: Speci men Type: BLOOD SPECIMENOrdering Facility: [facility] Address: [address] [place] [address] Performed By: #### 5 7021-8 ####[facility] LABCLIA [id number] [place] [address] [place] Neutrophils/100 WBC (Bld) 74.1 % Normal [facility] Comment on above: Order Comment: Speci men Type: BLOOD SPECIMENOrdering Facility: [facility] Address: [address] [place] [address] Performed By: #### 5 7021-8 ####[facility] LABCLIA [id number] [place] [id number] [place] Nucleated RBC (Bld) [#/Vol] 10*3/uL Normal <0.01 [facility] Comment on above: Order Comment: Speci men Type: BLOOD SPECIMENOrdering Facility: [facility] Address: [address] [place] [address] Performed By: #### 5 7021-8 ####[facility] LABCLIA [id number] [place] [address] [place] Nucleated RBC/100 WBC (Bld) [Ratio] 0.0 /100 WBC Normal [facility] Comment on above: Order Comment: Speci men Type: BLOOD SPECIMENOrdering Facility: [facility] Address: [address] [place] [address] Performed By: #### 5 7021-8 ####[facility] LABCLIA [id number] [place] [address] [place] Platelet mean volume (Bld) [Entitic vol] 10.4 fL Normal 9.0-12.7 [facility] Comment on above: Order Comment: Speci men Type: BLOOD SPECIMENOrdering Facility: [facility] Address: [address] [place] [address] Performed By: #### 5 7021-8 ####[facility] LABIA [id number] [place] [address] [place] Platelets (Bld) [#/Vol] 344 10*3/uL Normal 150-400 [facility] Comment on above: Order Comment: Speci men Type: BLOOD SPECIMENOrdering Facility: [facility] Address: [address] [place] [address] Performed By: #### 5 7021-8 ####[facility] LABIA [id number] [place] [address] [place] RBC (Bld) [#/Vol] 3.61 10*6/uL Low 3.90-5.20 [facility] Comment on above: Order Comment: Speci men Type: BLOOD SPECIMENOrdering Facility: [facility] Address: [address] [place] [address] Performed By: #### 5 7021-8 ####[facility] LABCLIA [id number] [place] [address] [place] WBC (Bld) [#/Vol] 8.86 10*3/uL Normal 3.70-11.00 [facility] Comment on above: Order Comment: Speci men Type: BLOOD SPECIMENOrdering Facility: [facility] Address: [address] [place] [address] Performed By: #### 5 7021-8 ####[facility] LABCLIA [id number] [address] [address] [facility] CNOVon 08-07-2024 CNOV Office Visit (FAMPWS ) MONISHA FITZPATRICK ([id number]) 1945 F Date Time Provider Department 08/07/24 9:00 AM [facility] During your visit today, we recorded the following information about you: Pulse Blood pressure Weight Height 85/minute 154/86 60.1 kg 1.651 m Deonte Hamm MD 08/07/2024 9:30 AM Signed Chief Complaint Patient presents with: Follow Up Recording using [employer] software for draft documentation of the visit was discussed with the patient/authorized customer counter representative; all questions welcomed and answered. Patient/authorized customer counter representative agreed to proceed HPI Monisha Roldan Estelazack is a 78 year old female who presents here today for Above Complaints. Accompanied today by her son. Nausea and Vomiting: - Nausea 3-4 days per week, typically postprandial after breakfast and dinner. - Rare episodes of emesis; last occurrence was a week ago Wednesday. - Taking Zofran PRN with reported efficacy in preventing emesis if taken promptly. - No associated fevers, chills, or abdominal pain. - Denies hematochezia, melena, or diarrhea with mucus. - Noted aversion to previously enjoyed foods; prefers chicken and fish. - Consumes approximately one Glucerna shake per day. Constipation: - Previously hospitalized for fecal impaction. - Currently taking Miralax one capful BID. - Regular bowel movements 1-2 times daily, described as soft. - Not using Senna currently. Atrial Fibrillation: - Diagnosed during recent hospitalization. - Currently on metoprolol 100 mg BID and Eliquis 5 mg BID. - Completed a 14-day Holter monitor study; results pending. - No known episodes of palpitations or irregular heartbeats during monitoring period. - Scheduled for an MRI on September 13. Hypertension: - Previously on losartan; currently taking amlodipine 2.5 mg daily. - Home blood pressure readings generally within normal range, with occasional spikes into the 140s systolic. - Recent reading of 146/80 mmHg in the office. Diabetes: - Blood glucose levels consistently below 120 mg/dL. - Last HbA1c checked 2 months ago was within normal limits. - Weight stable at 132 lbs. Fatigue and Weakness: - Reports persistent fatigue and weakness, particularly in the legs. - Noted improvement in mobility since hospitalization but not at baseline. - Experiencing knee pain, exacerbated by discontinuation of ibuprofen. Past medical history, appointments, medications, allergies reviewed. Previous Medical History PAST MEDICAL HISTORY Diagnosis Date HUSSAIN (acute kidney injury) Aneurysm, thoracic aortic 3.9 cm 06/2024 Aortic ejection murmur 04/06/2014 Arthritis of both knees 01/14/2017 Atrial fibrillation (HCC) Diabetes mellitus with macular edema, both eyes ([facility]) 02/23/2013 Dr. Oliva, Dr. CorreaZsmw-Dsqubd-yjpui Esophageal reflux External hemorrhoids without mention of complication Hearing aid worn Hyperlipidemia LDL goal <100 11/22/2015 Internal hemorrhoids without mention of complication Laryngospasm epi pen Nonproliferative diabetic retinopathy of both eyes ([facility]) 02/23/2013 PMH - PAST MEDICAL HISTORY OF change in bowel habits PMH - PAST MEDICAL HISTORY OF breathing shut down of and on Renal cyst 12/25/2015 right renal cyst Retinal edema 01/23/2014 Left eye - See scanned documents Retinal hemorrhage 07/19/2010 Unspecified constipation Unspecified essential hypertension Vasomotor rhinitis 04/06/2014 Venous (peripheral) insufficiency 08/13/2011 White coat hypertension 05/01/2013 Previous Surgical History PAST SURGICAL HISTORY Procedure Laterality Date CATARACT EXTRACTION HX Bilateral 10/2018, 09/2020 COLONOSCOPY FLX DX W/COLLJ SPEC WHEN PFRMD 08/21/2005 Repeat in FNA WITH IMAGING Right 12/06/2015 U/S FNA right groin PAST SURGICAL HISTORY OF CHILD TONSILS PAST SURGICAL HISTORY OF Left laser surgery to left eye SCREENING COLONSCOPY NOT HIGH RISK 02/2016 normal Family History FAMILY HISTORY Problem Relation Age of Onset other (gallbladder problems) Mother ulcers/stomach problems Emphysema Father ulcers Coronary Artery Disease Father Diabetes Paternal Grandmother Diabetes Paternal Aunt Diabetes Paternal Uncle Diabetes Maternal Uncle Patient Allergies ALLERGIES Allergen Reactions Lisinopril Swelling angioedema Doxycycline GI Upset Nausea w/o vomiting, bad taste Penicillin G Prednisone JITTERY Sulfa (Sulfonamide * Current Medications Current Outpatient Medications on File Prior to Visit Medication Sig metFORMIN (GLUCOPHAGE) 500 mg tablet Take 2 tablets by mouth two times a day with meals. . magnesium oxide (MAG-OX) 400 mg (241.3 mg magnesium) tablet Take 1 tablet by mouth once daily. apixaban (ELIQUIS) 5 mg tab(s) Take 5 mg by mouth two times a day. Senna 8.6 mg tab Take 1 tablet by mouth two times a day as n (more content not included)... Normal [facility] 08-07-2024 [facility] MONISHA FITZPATRICK ([id number]) 1945 F Date Time Provider Department 08/07/24 [facility] During your visit today, we recorded the following information about you: Steph Venegas LPN 08/07/2024 2:16 PM Signed Pt's son calls to request order for HH be faxed to [facility] @ [phone]. Order and pt information faxed as requested. Steph Venegas LPN Allergies As of Date: 08/07/2024 Noted Allergy Reaction LISINOPRIL 02/06/2012 7 - Swelling Comments: angioedema DOXYCYCLINE 05/18/2017 8 - GI Upset Comments: Nausea w/o vomiting, bad taste PENICILLIN G 01/05/2005 PREDNISONE 01/07/2005 Comments: JITTERY SULFA (SULFONAMIDE ANTIBIOTICS) 01/05/2005 Date Reviewed: 08/07/2024 Reviewed by: Sherry Escamilla MA - Fully Assessed Reason for Visit: Orders [681] Prescriptions as of 08/07/2024 - ondansetron (ZOFRAN) 4 mg tablet Take 1 tablet by mouth every 8 hours as needed for nausea/vomiting. - metFORMIN (GLUCOPHAGE) 500 mg tablet Take 2 tablets by mouth two times a day with meals. . - magnesium oxide (MAG-OX) 400 mg (241.3 mg magnesium) tablet Take 1 tablet by mouth once daily. - apixaban (ELIQUIS) 5 mg tab(s) Take 5 mg by mouth two times a day. - Senna 8.6 mg tab Take 1 tablet by mouth two times a day as needed for constipation. - metoprolol tartrate, short acting, (LOPRESSOR) 100 mg tablet Take 1 tablet by mouth two times a day. - amLODIPine (NORVASC) 2.5 mg tablet Take 1 tablet by mouth once daily. - blood sugar diagnostic (ACCU-CHEK FAISAL) test strip Test blood sugar(s) one time daily. Dx: E11.9. Insulin: No - albuterol HFA (VENTOLIN HFA) 90 mcg/actuation inhaler Inhale 2 Puffs as instructed every 4 hours as needed for wheezing/shortness of breath. - atorvastatin (LIPITOR) 20 mg tablet Take 1 tablet by mouth daily at bedtime. For cholesterol. - EPINEPHrine (EPIPEN) 0.3 mg/0.3 mL auto-injector 0.3 ml subcutaneously as needed for hypersensitivity reaction - fluticasone (FLONASE) 50 mcg/actuation nasal spray Use 2 Sprays in each nostril once daily. ONE TO TWO SPRAYS TO EACH NOSTRIL ONCE DAILY - Lancing Device with Lancets (ACCU-CHEK FASTCLIX LANCING DEV) 1 Each as directed. Use as directed. DX: E11.9, Insulin: No - aflibercept opthalmic intravitreal (EYLEA) 2 mg/0.05 mL soln Use 0.05 mL in the left eye one time only for 1 dose. - Lancets (ACCU-CHEK MULTICLIX LANCET) lancets 1 Each as directed. daily. Use as instructed. Dx 250.00 No insulin - ibuprofen (MOTRIN) 400 mg tablet Take 1 tablet by mouth twice daily as needed for Pain. - docusate sodium (COLACE) 100 mg capsule Take 100 mg by mouth twice daily. - psyllium seed/sucrose(METAMUCIL SMOOTH TEXTURE 28 % PACKET) twicw daily - CALCIUM 600 + D 600 MG-125 UNIT TAB Take one(1) tablet two(2) times daily. Problem List As Of Date 08/07/2024 Noted Resolved HYPERLIPIDEMIA NEC/NOS [E78.5] 05/12/2005 11/16/2014 BENIGN HYPERTENSION [I10] 05/12/2005 External hemorrhoids without mention of complic* 03/08/2014 Internal hemorrhoids without mention of complic* 03/08/2014 Type II or unspecified type diabetes mellitus w*10/10/2007 02/23/2013 LUMB DISC DIS W MYELOPAT [M51.06] 11/17/2007 VOCAL CORD DISEASE NEC [J38.3] 11/17/2007 Retinal hemorrhage [H35.60] 07/19/2010 01/13/2018 Venous (peripheral) insufficiency [I87.2] 08/13/2011 Nonproliferative diabetic retinopathy of both e*02/23/2013 Diabetes mellitus with macular edema, both eyes*02/23/2013 Vasomotor rhinitis [J30.0] 04/06/2014 Aortic ejection murmur [I35.1] 04/06/2014 Hyperlipidemia LDL goal <100 [E78.5] 11/22/2015 Groin mass in female [R19.09] 12/02/2015 Renal cyst [N28.1] 12/25/2015 Screening for intestinal cancer [Z12.10] 01/10/2016 Arthritis of both knees [M17.0] 01/14/2017 Atrial fibrillation (HCC) [I48.91] Aneurysm, thoracic aortic [I71.20] Encounter Status:Closed by STEPH VENEGAS on 08/07/24 Normal [facility] Comprehensive metabolic 2000 panelon 08-07-2024 Albumin [Mass/Vol] 3.6 g/dL Low 3.9 - 4.9 g/dL [facility] ALP [Catalytic activity/Vol] 73 U/L 34 - 123 U/L [facility] ALT [Catalytic activity/Vol] 9 U/L 7 - 38 U/L [facility] Anion gap [Moles/Vol] 10 mmol/L 8 - 15 mmol/L [facility] AST [Catalytic activity/Vol] 17 U/L 13 - 35 U/L [facility] Bilirubin [Mass/Vol] 0.3 mg/dL 0.2 - 1 .3 mg/dL [facility] Calcium [Mass/Vol] 10.7 mg/dL High 8.5 - 10. 2 mg/dL [facility] Chloride [Moles/Vol] 99 mmol/L 98 - 10 7 mmol/L [facility] CO2 [Moles/Vol] 29 mmol/L 22 - 30 mmol/L [facility] Creatinine [Mass/Vol] 0.86 mg/dL 0.58 - 0.96 mg/dL [facility] GFR/1.73 sq M.predicted among non-blacks MDRD (S/P/Bld) [Vol rate/Area] 69 mL/min/{1.73_m2} - PINF [facility] Comment on above: Estimated Glomerular Filtration Rate (eGFR) is calculated using the 2020 CKD-EPI creatinine equation. This equation utilizes serum creatinine, sex, and age as parameters. The creatinine assay has traceable calibration to isotope dilution-mass spectrometry. Refer to KDIGO guidelines for clinical interpretation. In patients with unstable renal function, e.g. those with acute kidney injury, the eGFR may not accurately reflect actual GFR. Glucose [Mass/Vol] 130 mg/dL High 74 - 99 mg/dL [facility] Comment on above: The [place] Diabete s Association (ADA) provides guidance for cutoff values for fasting glucose and random glucose. The ADA defines fasting as no caloric intake for at least 8 hours. Fasting plasma glucose results between 100 to 125 mg/dL indicate increased risk for diabetes (prediabetes). Fasting plasma glucose results greater than or equal to 126 mg/dL meet the criteria for diagnosis of diabetes. In the absence of unequivocal hyperglycemia, results should be confirmed by repeat testing. In a patient with classic symptoms of hyperglycemia or hyperglycemic crisis, random plasma glucose results greater than or equal to 200 mg/dL meet the criteria for diagnosis of diabetes. Reference: Standards of Medical Care in Diabetes 2016, [place] [employer]. Diabetes Care. 2016.39(Suppl 1). Interpretation and review of laboratory results Abnormal [facility] Potassium [Moles/Vol] 3.8 mmol/L 3.7 - 5.1 mmol/L [facility] Protein [Mass/Vol] 6.2 g/dL Low 6.3 - 8.0 g/dL [facility] Sodium [Moles/Vol] 138 mmol/L 136 - 144 mmol/L [facility] Urea nitrogen [Mass/Vol] 28 mg/dL High 7 - 21 mg/dL [facility] Albumin [Mass/Vol] 3.6 g/dL Low 3.9-4.9 [facility] Comment on above: Order Comment: Speci men Type: BLOOD SPECIMENOrdering Facility: [facility] Address: [address] [place] [address] Performed By: #### 2 4323-8, ####[facility] LABCLIA [id number] [place] [address] [place] ALP [Catalytic activity/Vol] 73 U/L Normal 34-123 [facility] Comment on above: Order Comment: Speci men Type: BLOOD SPECIMENOrdering Facility: [facility] Address: [address] [place] [address] Performed By: #### 2 432-8, ####[facility] LABCLIA [id number] [place] [address] [place] ALT [Catalytic activity/Vol] 9 U/L Normal 7-38 [facility] Comment on above: Order Comment: Speci men Type: BLOOD SPECIMENOrdering Facility: [facility] Address: [address] [place] [address] Performed By: #### 2 4323-8, ####[facility] LABCLIA [id number] [place] [id number] [place] Anion gap [Moles/Vol] 10 mmol/L Normal 8-15 [facility] Comment on above: Order Comment: Speci men Type: BLOOD SPECIMENOrdering Facility: [facility] Address: [address] [place] [address] Performed By: #### 2 4323-8, ####[facility] LABCLIA [id number] [address] [address] [place] AST [Catalytic activity/Vol] 17 U/L Normal 13-35 [facility] Comment on above: Order Comment: Speci men Type: BLOOD SPECIMENOrdering Facility: [facility] Address: [address] [place] [address] Performed By: #### 2 4323-8, ####[facility] LABCLIA [id number] [place] [id number] [place] Bilirubin [Mass/Vol] 0.3 mg/dL Normal 0.2-1.[address] [facility] Comment on above: Order Comment: Speci men Type: BLOOD SPECIMENOrdering Facility: [facility] Address: [address] [place] [address] Performed By: #### 2 432-8, ####[facility] LABIA [id number] [place] [id number] [place] Calcium [Mass/Vol] 10.7 mg/dL High 8.5-10.2 [facility] Comment on above: Order Comment: Speci men Type: BLOOD SPECIMENOrdering Facility: [facility] Address: [address] [place] [address] Performed By: #### 2 4323-8, ####[facility] LABCLIA [id number] [place] [id number] [place] Chloride [Moles/Vol] 99 mmol/L Normal 98-[address] [facility] Comment on above: Order Comment: Speci men Type: BLOOD SPECIMENOrdering Facility: [facility] Address: [address] [place], [place] [address] Performed By: #### 2 4323-8, ####[facility] LABCLIA [id number] [place] [id number] [place] CO2 [Moles/Vol] 29 mmol/L Normal 22-30 [facility] Comment on above: Order Comment: Speci men Type: BLOOD SPECIMENOrdering Facility: [facility] Address: [address] [place] [address] Performed By: #### 2 432-8, ####[facility] LABCLIA [id number] [address] [address] [place] Creatinine [Mass/Vol] 0.86 mg/dL Normal 0.58-0.96 [facility] Comment on above: Order Comment: Speci men Type: BLOOD SPECIMENOrdering Facility: [facility] Address: [address] [place] [address] Performed By: #### 2 8, ####[facility] LABCLIA [id number] [place] [address] [place] Creatinine and Glomerular filtration rate.predicted panel (S/P/Bld) 69 mL/min/1.73m??? Normal >=60 [facility] Comment on above: Order Comment: Speci men Type: BLOOD SPECIMENOrdering Facility: [facility] Address: [address] [place] [address] Result Comment: Kaitlin mated Glomerular Filtration Rate (eGFR) is calculated using the 2020 CKD-EPI creatinine equation. This equation utilizes serum creatinine, sex, and age as parameters. The creatinine assay has traceable calibration to isotope dilution-mass spectrometry. Refer to KDIGO guidelines for clinical interpretation. In patients with unstable renal function, e.g. those with acute kidney injury, the eGFR may not accurately reflect actual GFR. Performed By: #### 2 4323-8, ####[facility] LABCLIA [id number] [address] [address] [place] Glucose [Mass/Vol] 130 mg/dL High 74-99 [facility] Comment on above: Order Comment: Speci men Type: BLOOD SPECIMENOrdering Facility: [facility] Address: [address], [place] [address] Result Comment: The [place] Diabetes Association (ADA) provides guidance for cutoff values for fasting glucose and random glucose. The ADA defines fasting as no caloric intake for at least 8 hours. Fasting plasma glucose results between 100 to 125 mg/dL indicate increased risk for diabetes (prediabetes). Fasting plasma glucose results greater than or equal to 126 mg/dL meet the criteria for diagnosis of diabetes. In the absence of unequivocal hyperglycemia, results should be confirmed by repeat testing. In a patient with classic symptoms of hyperglycemia or hyperglycemic crisis, random plasma glucose results greater than or equal to 200 mg/dL meet the criteria for diagnosis of diabetes. Reference: Standards of Medical Care in Diabetes 2016, [place] [employer]. Diabetes Care. 2016.39(Suppl 1). Performed By: #### 2 4323-8, ####[facility] LABIA [id number] [place] [address] [place] Potassium [Moles/Vol] 3.8 mmol/L Normal 3.7-5.1 [facility] Comment on above: Order Comment: Speci men Type: BLOOD SPECIMENOrdering Facility: [facility] Address: [address] [id number] Performed By: #### 2 4323-8, ####[facility] LABIA [id number] [address] [id number] [place] Protein [Mass/Vol] 6.2 g/dL Low 6.3-8.0 [facility] Comment on above: Order Comment: Speci men Type: BLOOD SPECIMENOrdering Facility: [facility] Address: [address] [id number] Performed By: #### 2 4323-8, ####[facility] LABIA [id number] [address] [address] [place] Sodium [Moles/Vol] 138 mmol/L Normal 136-144 [facility] Comment on above: Order Comment: Speci men Type: BLOOD SPECIMENOrdering Facility: [facility] Address: [address] [id number] Performed By: #### 2 4323-8, 28888-4 ####[facility] LABCLIA [id number] [place] [address] [place] Urea nitrogen [Mass/Vol] 28 mg/dL High 7-21 [facility] Comment on above: Order Comment: Speci men Type: BLOOD SPECIMENOrdering Facility: [facility] Address: [address] [place] [address] Performed By: #### 2 4323-8, ####[facility] LABCLIA [id number] [place] [address] [place] Magnesium SerPl-mCncon 08-07 Magnesium [Mass/Vol] 1.8 mg/dL Normal 1.7-2.[address] [facility] Comment on above: Order Comment: Speci men Type: BLOOD SPECIMENOrdering Facility: [facility] Address: [address] [place] [address] Performed By: #### 2 4323-8, ####[facility] LABCLIA [id number] [address] [place] CBC W Auto Differential pane l (Bld)on 07-06-2024 Basophils (Bld) [#/Vol] 0.11 10*3/uL High [facility] Basophils/100 WBC (Bld) 0.8 % C [facility] Differential cell count method Nom (Bld) Auto [facility] Eosinophils (Bld) [#/Vol] 0.18 10*3/uL [facility] Eosinophils/100 WBC (Bld) 1.2 % [facility] Erythrocyte distribution width (RBC) [Ratio] 13.2 % 11.5 - 15.0 % [facility] Hematocrit (Bld) [Volume fraction] 33.8 % Low 36.0 - 46.0 % [facility] Hemoglobin (Bld) [Mass/Vol] 10.9 g/dL Low 11.5 - 15.5 g/dL [facility] Immature granulocytes (Bld) [#/Vol] 0.1 10*3/uL High [facility] Immature granulocytes/100 WBC (Bld) 0.7 % [facility] Interpretation and review of laboratory results Abnormal [facility] Lymphocytes (Bld) [#/Vol] 2.12 10*3/uL [facility] Lymphocytes/100 WBC (Bld) 14.5 % [facility] MCH (RBC) [Entitic mass] 29.6 pg 26.0 - 34.[address] [facility] MCHC (RBC) [Mass/Vol] 32.2 g/dL 30.5 - 36.0 g/dL [facility] MCV (RBC) [Entitic vol] 91.8 fL 80.0 - 100.[address] [facility] Monocytes (Bld) [#/Vol] 0.71 10*3/uL [facility] Monocytes/100 WBC (Bld) 4.9 % C [facility] Neutrophils (Bld) [#/Vol] 11.36 10*3/uL High [facility] Neutrophils/100 WBC (Bld) 77.9 % [facility] Nucleated RBC (Bld) [#/Vol] [facility] Nucleated RBC/100 WBC (Bld) [Ratio] 0 % /[address] [facility] Platelet mean volume (Bld) [Entitic vol] 10.1 fL 9.0 - 12.[address] [facility] Platelets (Bld) [#/Vol] 455 10*3/uL High [facility] RBC (Bld) [#/Vol] 3.68 10*6/uL Low 3.90 - 5.2 0 m/uL [facility] WBC (Bld) [#/Vol] 14.58 10*3/uL High [facility] Basophils (Bld) [#/Vol] 0.11 10*3/uL High <0.11 [facility] Comment on above: Order Comment: Speci men Type: BLOOD SPECIMENOrdering Facility: [facility] Address: [address] [place] [address] Performed By: #### 5 7021-8, 18396-0 ####[facility] LABCLIA [id number] [address] [place] Basophils/100 WBC (Bld) 0.8 % Normal [facility] Comment on above: Order Comment: Speci men Type: BLOOD SPECIMENOrdering Facility: [facility] Address: [address] [place] [address] Performed By: #### 5 7021-8, 58977-9 ####[facility] LABCLIA [id number] [address] [address] [place] Differential cell count method Nom (Bld) Auto Normal [facility] Comment on above: Order Comment: Speci men Type: BLOOD SPECIMENOrdering Facility: [facility] Address: [address] [place] [address] Performed By: #### 5 7021-8, 58709-3 ####[facility] LABCLIA [id number] [place] [address] [place] Eosinophils (Bld) [#/Vol] 0.18 10*3/uL Normal <0.46 [facility] Comment on above: Order Comment: Speci men Type: BLOOD SPECIMENOrdering Facility: [facility] Address: [address] [place] [address] Performed By: #### 5 7021-8, 00623-2 ####[facility] LABCLIA [id number] [address] [place] Eosinophils/100 WBC (Bld) 1.2 % Normal [facility] Comment on above: Order Comment: Speci men Type: BLOOD SPECIMENOrdering Facility: [facility] Address: [address] [place] [address] Performed By: #### 5 7021-8, 05412-2 ####[facility] LABCLIA [id number] [place] [address] [place] Erythrocyte distribution width (RBC) [Ratio] 13.2 % Normal 11.5-15.0 [facility] Comment on above: Order Comment: Speci men Type: BLOOD SPECIMENOrdering Facility: [facility] Address: [address] [place] [address] Performed By: #### 5 7021-8, 11766-8 ####[facility] LABCLIA [id number] [place] [address] [place] Hematocrit (Bld) [Volume fraction] 33.8 % Low 36.0-46.0 [facility] Comment on above: Order Comment: Speci men Type: BLOOD SPECIMENOrdering Facility: [facility] Address: [address] [place] [address] Performed By: #### 5 7021-8, 32843-4 ####[facility] LABCLIA [id number] [place] [address] [place] Hemoglobin (Bld) [Mass/Vol] 10.9 g/dL Low 11.5-15.5 [facility] Comment on above: Order Comment: Speci men Type: BLOOD SPECIMENOrdering Facility: [facility] Address: [address] [place] [address] Performed By: #### 5 7021-8, 28961-2 ####[facility] LABCLIA [id number] [place] [address] [place] Immature granulocytes (Bld) [#/Vol] 0.10 10*3/uL High <0.10 [facility] Comment on above: Order Comment: Speci men Type: BLOOD SPECIMENOrdering Facility: [facility] Address: [address] [place] [address] Performed By: #### 5 7021-8, 32109-3 ####[facility] LABCLIA [id number] [address] [id number] [place] Immature granulocytes/100 WBC (Bld) 0.7 % Normal [facility] Comment on above: Order Comment: Speci men Type: BLOOD SPECIMENOrdering Facility: [facility] Address: [address] [place] [address] Performed By: #### 5 7021-8, 17564-1 ####[facility] LABCLIA [id number] [place] [address] [place] Lymphocytes (Bld) [#/Vol] 2.12 10*3/uL Normal 1.00-4.00 [facility] Comment on above: Order Comment: Speci men Type: BLOOD SPECIMENOrdering Facility: [facility] Address: [address] [place] [address] Performed By: #### 5 7021-8, 77252-4 ####[facility] LABCLIA [id number] [place] [address] [place] Lymphocytes/100 WBC (Bld) 14.5 % Normal [facility] Comment on above: Order Comment: Speci men Type: BLOOD SPECIMENOrdering Facility: [facility] Address: [address] [place] [address] Performed By: #### 5 7021-8, 11743-7 ####[facility] LABIA [id number] [place] [address] [place] MCH (RBC) [Entitic mass] 29.6 pg Normal 26.0-34.0 [facility] Comment on above: Order Comment: Speci men Type: BLOOD SPECIMENOrdering Facility: [facility] Address: [address] [place] [address] Performed By: #### 5 7021-8, 77791-4 ####[facility] LABIA [id number] [place] [address] [place] MCHC (RBC) [Mass/Vol] 32.2 g/dL Normal 30.5-36.0 [facility] Comment on above: Order Comment: Speci men Type: BLOOD SPECIMENOrdering Facility: [facility] Address: [address] [place] [address] Performed By: #### 5 7021-8, 75198-4 ####[facility] LABIA [id number] [place] [address] [place] MCV (RBC) [Entitic vol] 91.8 fL Normal 80.0-100.0 C [facility] Comment on above: Order Comment: Speci men Type: BLOOD SPECIMENOrdering Facility: [facility] Address: [address] [place] [address] Performed By: #### 5 7021-8, 55421-3 ####[facility] LABCLIA [id number] [place] [address] [place] Monocytes (Bld) [#/Vol] 0.71 10*3/uL Normal <0.87 [facility] Comment on above: Order Comment: Speci men Type: BLOOD SPECIMENOrdering Facility: [facility] Address: [address] [place] [address] Performed By: #### 5 7021-8, 26230-8 ####[facility] LABCLIA [id number] [address] [place] Monocytes/100 WBC (Bld) 4.9 % Normal C [facility] Comment on above: Order Comment: Speci men Type: BLOOD SPECIMENOrdering Facility: [facility] Address: [address] [place] [address] Performed By: #### 5 7021-8, 14365-7 ####[facility] LABCLIA [id number] [place] [address] [place] Neutrophils (Bld) [#/Vol] 11.36 10*3/uL High 1.45-7.50 [facility] Comment on above: Order Comment: Speci men Type: BLOOD SPECIMENOrdering Facility: [facility] Address: [address] [place] [address] Performed By: #### 5 7021-8, 46298-5 ####[facility]CLIA [id number] [facility] [address] [address] [place] Neutrophils/100 WBC (Bld) 77.9 % Normal [facility] Comment on above: Order Comment: Speci men Type: BLOOD SPECIMENOrdering Facility: [facility] Address: [address] [place] [address] Performed By: #### 5 7021-8, 51834-7 ####[facility] LABCLIA [id number] [place] [address] [place] Nucleated RBC (Bld) [#/Vol] 10*3/uL Normal <0.01 [facility] Comment on above: Order Comment: Speci men Type: BLOOD SPECIMENOrdering Facility: [facility] Address: [address] [place] [address] Performed By: #### 5 7021-8, 64244-5 ####[facility] LABIA [id number] [place] [address] [place] Nucleated RBC/100 WBC (Bld) [Ratio] 0.0 /100 WBC Normal [facility] Comment on above: Order Comment: Speci men Type: BLOOD SPECIMENOrdering Facility: [facility] Address: [address] [place] [address] Performed By: #### 5 7021-8, 31882-3 ####[facility] [id number] [place] [address] [place] Platelet mean volume (Bld) [Entitic vol] 10.1 fL Normal 9.0-12.7 [facility] Comment on above: Order Comment: Speci men Type: BLOOD SPECIMENOrdering Facility: [facility] Address: [address] [place] [address] Performed By: #### 5 7021-8, 87742-6 ####[facility] LABIA [id number] [address] [id number] [place] Platelets (Bld) [#/Vol] 455 10*3/uL High 150-400 [facility] Comment on above: Order Comment: Speci men Type: BLOOD SPECIMENOrdering Facility: [facility] Address: [address] [place] [address] Performed By: #### 5 7021-8, 87556-6 ####[facility] LABCLIA [id number] [address] [address] [place] RBC (Bld) [#/Vol] 3.68 10*6/uL Low 3.90-5.20 [facility] Comment on above: Order Comment: Speci men Type: BLOOD SPECIMENOrdering Facility: [facility] Address: [address] [place] [address] Performed By: #### 5 7021-8, 89665-3 ####[facility] LABCLIA [id number] [address] [id number] [place] WBC (Bld) [#/Vol] 14.58 10*3/uL High 3.70-11.[address] [facility] Comment on above: Order Comment: Speci men Type: BLOOD SPECIMENOrdering Facility: [facility] Address: [address] [place] [address] Performed By: #### 5 7021-8, 08050-7 ####[facility] LABIA [id number] [address] [id number] [place] CNOVon 07-06-2024 CNOV Office Visit (FAMPWS ) MONISHA FITZPATRICK ([id number]) 1945 F Date Time Provider Department 07/06/24 12:20 PM DEONTE HAMM FAMPWS During your visit today, we recorded the following information about you: Pulse Respiration Blood pressure Weight 72/minute 14/minute 128/74 60.2 kg Deonte Hamm MD 07/06/2024 2:46 PM Signed Chief Complaint Patient presents with: ED Follow-up: [facility] 06/26/24-06/29/24- weakness, nausea, bowel issues Recording using ambient Sharethrough software for draft documentation of the visit was discussed with the patient/authorized customer counter representative; all questions welcomed and answered. Patient/authorized customer counter representative agreed to proceed HPI Monisha Fitzpatrick is a 78 year old female who presents here today for Above Complaints. Accompanied today by son Christopher and daughter in may. Hospital Follow-Up: - Hospitalized at [facility] from 06/26 to 06/29. - Admitted for nausea, vomiting, constipation, new onset a fib, medication reaction, and acute encephalopathy. - Presented to the ER on 06/26 with nausea and vomiting; had poor appetite for weeks to months prior. - Given bowel prep prior to evaluation, had good bowel movements but still developed nausea and loss of appetite. - Vital signs in the ER were unremarkable except for tachycardia. - EKG showed atrial flutter. - Chemistry panel showed leukocytosis (WBC 18.7), mild anemia (Hgb 11.9), elevated platelet count (479,000). - Acute kidney injury with creatinine 1.47, BUN 55. - UA not consistent with infection; urine culture negative. - Lactic acid elevated at 3.6, resolved with IV fluids. - Troponins elevated at 87, decreased to 72. - Calcium level elevated at 11.7, resolved with IV fluids. 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 - CT chest showed scattered pulmonary nodules (4 mm) with follow-up CT recommended in 12 months and a 3.9 cm ascending thoracic aneurysm with mild cardiomegaly. - Vascular surgery consulted due to the calcified aneurysm in the right common femoral artery; duplex ordered, which was unremarkable. - Vascular surgery felt it was a cystic lesion, no further work required. - Heart Rate remained elevated while inpatient, so metoprolol dosage increased to 100 mg BID. - Losartan dose decreased from 100 to 50 mg daily and was discontinued prior to discharge. - Remained in atrial flutter, started on Eliquis for stroke prevention. - Nausea and vomiting resolved prior to discharge; had good bowel movements. - Adverse reaction to methylprednisolone with delirium for about 36 hours, resolved prior to discharge. - Discharged home with a recommendation to follow up with cardiology for the new-onset atrial fibrillation. - Echocardiogram obtained before discharge with an EF of 70% and mild focal aortic valve calcification, otherwise unremarkable. - Reaction to CT scan contrast with upper lip swelling and flushing; given methylprednisolone. - No swelling since discharge; no trouble breathing or swallowing. - Eating better, smaller meals. - Bowel movements once or twice a day, not full but still going. - Taking Miralax, Caltrate, and Metamucil for constipation. - Nausea typically occurs a few hours after eating and taking morning medications. Had an episode of vomiting 2 days ago. - Drinking water, but not enough; nausea affects fluid intake. - No stomach pain, fevers, or chills. - No blood in stool or dark black stools; stools are darker brown. - Bowel movements require straining; not soft initially. - Swelling in feet noted since discharge; wearing support hose. - Complains of knees and legs hurting, affecting sleep. - No falls reported. - TSH checked during hospitalization, on the lower end of normal. - Seeing , cardiology today for follow-up on atrial fibrillation. - Scheduled for a big MRI for the heart on September 13 for cardiomyopathy. - Taking metoprolol 100 mg twice a day, not extended release. - Not taking losartan anymore; taking amlodipine 2.5 mg once a day. - Taking Eliquis 5 mg twice a day. - No racing heart, palpitations, chest pains, or shortness of breath reported. - Hemorrhoid cream requested; using Anusol cream. - Nausea medicine available, but no refill. Past medical history, appointments, medications, allergies reviewed. Previous Medical History PAST MEDICAL HISTORY Diagnosis Date HUSSAIN (acute kidney injury) Aneurysm, thoracic aortic 3.9 cm 06/2024 Aortic ejection murmur 04/06/2014 Arthritis of both knees 01/14/2017 Atrial fibrillation (HCC) Diabetes mellitus with macular edema, both eyes (HCC) 02/23/2013 Dr. Oliva, Dr. CorreaCtgm-Eyohug-khtkb Esophageal reflux External hemorrhoids without mention of complication Hearing aid worn Hyperlipid (more content not included)... Normal [facility] Calcium.ionized [Moles/Vol]o n 07-06-2024 Calcium.ionized (Bld) [Mass/Vol] 1.27 mmol/L Normal 1.08-1.30 [facility] Comment on above: Order Comment: Specjorje men Type: BLOOD SPECIMEN [facility] Address: [address] [place] [address] Performed By: #### 1 995-0 #### [facility] CLIA [id number] [address] [place], [place] [address] [address] [place] Calcium.ionized adjusted to pH 7.4 (Bld) [Moles/Vol] 1.41 mmol/L High 1.08-1.30 [facility] Comment on above: Order Comment: Specjorje men Type: BLOOD SPECIMEN [facility] Address: [address] [place] [address] Performed By: #### 1 995-0 #### [facility] CLIA [id number] [address] [place] [address] [place] Cardiology Visit Reporton Cardiology Visit Report [facility] [address] [place] [address] OFFICE VISIT Date of Service: 07/06/24 MR#: [id number] Acct: [id number] Name: MONISHA FITZPATRICK Yuli Rep #: [id number] : 1945 Provider: RAVINDER hurtado Age/Sex: 78/F [place] [facility] Status: Signed HPI HPI History of Present Illness Details: This is a 78 year old lady who presents to the office today for a cardiovascular hospital follow-up visit. She was previously seen for a systolic murmur, increased LVOT, which worsened with Valsalva. She is scheduled for a cardiac MRI in September. She was recently in [facility] for toxic metabolic encephalopathy. During her admission, she was noted to be in atrial fibrillation. She was discharged home on Eliquis, and metoprolol tartrate 100mg twice daily. Her echocardiogram on 06/26/24 demonstrated an ejection fraction of 70%. From a cardiac standpoint, the patient is doing well. She presents to the office in a wheel chair, accompanied by her son. She denies any palpitations, chest pain, pressure or heaviness. She denies SOB, Orthopnea, and PND. She does not have bleeding issues; no blood in urine, stool, or nosebleeds. She does acknowledge fatigue. She denies any myalgias, or claudication. She does acknowledge bilateral lower extremity edema. She does wear compression stockings. She does not have sudden weight gain. She denies lightheadedness, dizziness, syncopal or near syncopal episodes, and headaches. She states she was just at her PCP's office, and her blood pressure was 120/74. The PCP also ordered multiple labs. Intake Vital Signs 06/27/24 11:12 07/06/24 09:37 Height 5 ft 6 in 5 ft 6 in Weight: 132 lb BMI 21.3 BP 140/81 H Blood Pressure Location Lt brachial Position Sitting Respiration 18 Pulse 66 Pulse Source Monitor Pulse Oximetry (%) 96 Intake Visit Reasons: S/P [facility] 06/29 Improvement Intern Required: No Is patient in pain?: No Allergies lisinopril Allergy (Severe, Verified 07/06/24 14:04) Angioedema penicillin G Allergy (Unknown, Verified 07/06/24 14:04) PT UNSURE OF REACTION Sulfa (Sulfonamide Antibiotics) Allergy (Unknown, Verified 07/06/24 14:04) PT UNSURE OF REACTION Iodinated Contrast Media (iv contrast) Allergy (Verified 07/06/24 14:04) Swelling doxycycline Adverse Reaction (Intermediate, Verified 07/06/24 14:04) Nausea prednisone Adverse Reaction (Mild, Verified 07/06/24 14:04) Other Medications ???Medication ???Instructions ???Recorded ???Confirmed ???Type aflibercept 2 mg/0.05 mL 2 mg intravitreal ONCE EYES 07/06/24 History intravitreal solution for injection albuterol sulfate 90 mcg/actuation 2 puff inhalation Q4-6H PRN SOB 05/17/24 07/06/24 History aerosol inhaler atorvastatin 20 mg tablet 20 mg PO QHS CHOLESTEROL 05/17/24 07/06/24 History calcium carbonate-vitamin tab PO BID SUPPLEMENT 05/17/24 History D2-minerals tablet docusate sodium 100 mg capsule 100 mg PO BID STOOL SOPFTENER 04/0 11/0207/06/24 History epinephrine 0.3 mg/0.3 mL 0.3 mg IM Q5-15M PRN 05/17/2406/09 History injection, auto-injector bronchodilation fluticasone propionate 50 2 spray intranasal QDAY SINUSES 07/06/24 History mcg/actuation nasal spray,suspension (Allergy Relief (fluticasone)) metformin 500 mg tablet 1,000 mg PO BID DIABETES 05/17/24 07/06/24 History psyllium seed (sugar) oral powder 1 tbsp PO BID SUPPLEMENT 05/17/24 07/06/24 History (Fiber Therapy (psyllium seed-sucrose) oral powder) amlodipine 2.5 mg tablet 2.5 mg PO QDAY BLOOD PRESSURE #30 06/06/24 07/06/24 Rx tabs apixaban 5 mg tablet (Eliquis) 5 mg PO BID #60 tabs 06/29/2406/09 Rx acetaminophen 500 mg capsule 1,000 mg PO Q6H PRN 07/06/2407/06 History metoprolol tartrate 100 mg tablet 100 mg PO BID 07/06/24 07/06/24 H istory ondansetron 4 mg disintegrating 4 mg PO Q8H PRN 07/06/24 07/06/24 History tablet sennosides 8.6 mg capsule (senna) 8.6 mg PO BID 07/06/24 07/06/24 H istory Have you fallen in the past year?: No [facility] Medical History Disorder of bone, unspecified Unintentional weight loss Fatigue White coat syndrome with hypertension Venous (peripheral) insufficiency Vasomotor rhinitis Unspecified essential hypertension Unspecified constipation Retinal hemorrhage Retinal edema Renal cyst Nonproliferative diabetic retinopathy of both eyes Laryngospasm Internal hemorrhoids without mention of complication Hyperlipidemia LDL goal <100 Hearing aid worn External hemorrhoids without mention of complication Esophageal reflux disease Diabetes mellitus with macular edema, both eyes Arthritis of both knees Aortic ejection murmur Surgical History (more content not included)... Normal [facility] Comprehensive metabolic 2000 panelon 07-06-2024 Albumin [Mass/Vol] 3.6 g/dL Low 3.9-4.9 [facility] Comment on above: Order Comment: Speci men Type: BLOOD SPECIMENOrdering Facility: [facility] Address: [address] [place] [address] Performed By: #### 2 532-0, 2283-8, 55559-0, 2131-10 ####[facility] LABCLIA [id number] [place] [address] [place] ALP [Catalytic activity/Vol] 75 U/L Normal 34-123 [facility] Comment on above: Order Comment: Speci men Type: BLOOD SPECIMENOrdering Facility: [facility] Address: [address] [place] [address] Performed By: #### 2 532-0, 2283-8, 82978-3, 2131-10 ####[facility] LABCLIA [id number] [place] [address] [place] ALT [Catalytic activity/Vol] 14 U/L Normal 7-38 [facility] Comment on above: Order Comment: Speci men Type: BLOOD SPECIMENOrdering Facility: [facility] Address: [address] [place] [address] Performed By: #### 2 532-0, 2283-8, , 2131-10 ####[facility] LABCLIA [id number] [place] [address] [place] Anion gap [Moles/Vol] 11 mmol/L Normal 8-15 [facility] Comment on above: Order Comment: Speci men Type: BLOOD SPECIMENOrdering Facility: [facility] Address: [address] [place] [address] Performed By: #### 2 532-0, 2283-8, 55653-1, 2131-10 ####[facility] LABCLIA [id number] [place] [id number] [place] AST [Catalytic activity/Vol] 15 U/L Normal 13-35 [facility] Comment on above: Order Comment: Speci men Type: BLOOD SPECIMENOrdering Facility: [facility] Address: [address] [place] [address] Performed By: #### 2 532-0, 2284-8, 26138-4, 9 ####[facility] LABCLIA [id number] [place] [id number] [place] Bilirubin [Mass/Vol] 0.3 mg/dL Normal 0.2-1.[address] [facility] Comment on above: Order Comment: Speci men Type: BLOOD SPECIMENOrdering Facility: [facility] Address: [address] [place] [address] Performed By: #### 2 532-0, 2283-8, 69967-4, 2131-10 ####[facility] LABCLIA [id number] [place] [address] [place] Calcium [Mass/Vol] 10.1 mg/dL Normal 8.5-10.2 [facility] Comment on above: Order Comment: Speci men Type: BLOOD SPECIMENOrdering Facility: [facility] Address: [address] [place] [address] Performed By: #### 2 532-0, 228-8, 03601-3, 2131-10 ####[facility] LABCLIA [id number] [place] [address] [place] Chloride [Moles/Vol] 100 mmol/L Normal 98-[address] [facility] Comment on above: Order Comment: Speci men Type: BLOOD SPECIMENOrdering Facility: [facility] Address: [address] [place] [address] Performed By: #### 2 532-0, 228-8, 83424-3, 2131-10 ####[facility] LABCLIA [id number] [place] [address] [place] CO2 [Moles/Vol] 30 mmol/L Normal 22-30 [facility] Comment on above: Order Comment: Speci men Type: BLOOD SPECIMENOrdering Facility: [facility] Address: [address] [place] [address] Performed By: #### 2 532-0, 2284-8, 96538-8, 9 ####[facility] LABIA [id number] [place] [id number] [place] Creatinine [Mass/Vol] 0.99 mg/dL High 0.58-0.96 [facility] Comment on above: Order Comment: Specjorje men Type: BLOOD SPECIMENOrdering Facility: [facility] Address: [address] [place] [address] Performed By: #### 2 532-0, 4-8, 36317-8, 2131-10 ####[facility] [id number] [place] [address] [place] Creatinine and Glomerular filtration rate.predicted panel (S/P/Bld) 58 mL/min/1.73m??? Low >=60 [facility] Comment on above: Order Comment: Remi bustamante Type: BLOOD SPECIMENOrdering Facility: [facility] Address: [address] [place] [address] Result Comment: Kaitlin mated Glomerular Filtration Rate (eGFR) is calculated using the 2020 CKD-EPI creatinine equation. This equation utilizes serum creatinine, sex, and age as parameters. The creatinine assay has traceable calibration to isotope dilution-mass spectrometry. Refer to KDIGO guidelines for clinical interpretation. In patients with unstable renal function, e.g. those with acute kidney injury, the eGFR may not accurately reflect actual GFR. Performed By: #### 2 532-0, 4-8, 33076-5, 2131-10 ####[facility] [id number] [address] [address] [place] Glucose [Mass/Vol] 113 mg/dL High 74-99 [facility] Comment on above: Order Comment: Remi bustamante Type: BLOOD SPECIMENOrdering Facility: [facility] Address: [address] [place] [address] Result Comment: The [place] Diabetes [employer] (ADA) provides guidance for cutoff values for fasting glucose and random glucose. The ADA defines fasting as no caloric intake for at least 8 hours. Fasting plasma glucose results between 100 to 125 mg/dL indicate increased risk for diabetes (prediabetes). Fasting plasma glucose results greater than or equal to 126 mg/dL meet the criteria for diagnosis of diabetes. In the absence of unequivocal hyperglycemia, results should be confirmed by repeat testing. In a patient with classic symptoms of hyperglycemia or hyperglycemic crisis, random plasma glucose results greater than or equal to 200 mg/dL meet the criteria for diagnosis of diabetes. Reference: Standards of Medical Care in Diabetes 2016, [place] [employer]. Diabetes Care. 2016.39(Suppl 1). Performed By: #### 2 532-0, 4-8, 50973-5, 2131-10 ####[facility] LABCLIA [id number] [place] [address] [place] Potassium [Moles/Vol] 4.2 mmol/L Normal 3.7-5.1 [facility] Comment on above: Order Comment: Speci men Type: BLOOD SPECIMENOrdering Facility: [facility] Address: [address] [place] [address] Performed By: #### 2 532-0, 2283-8, , 2131-10 ####[facility] LABIA [id number] [place] [address] [place] Protein [Mass/Vol] 6.1 g/dL Low 6.3-8.0 [facility] Comment on above: Order Comment: Speci men Type: BLOOD SPECIMENOrdering Facility: [facility] Address: [address] [place] [address] Performed By: #### 2 532-0, 2283-8, 89397-1, 2131-10 ####[facility] LABIA [id number] [place] [address] [place] Sodium [Moles/Vol] 141 mmol/L Normal 136-144 [facility] Comment on above: Order Comment: Speci men Type: BLOOD SPECIMENOrdering Facility: [facility] Address: [address] [place] [address] Performed By: #### 2 532-0, 2284-8, 37171-5, 9 ####[facility] LABCLIA [id number] [place] [address] [place] Urea nitrogen [Mass/Vol] 27 mg/dL High 7-21 [facility] Comment on above: Order Comment: Speci men Type: BLOOD SPECIMENOrdering Facility: [facility] Address: [address] [place] [address] Performed By: #### 2 532-0, 2284-8, 25894-9, 2131-10 ####[facility] LABCLIA [id number] [place] [address] [place] Ferritin SerPl-mCncon 2024 Ferritin [Mass/Vol] 37.1 ng/mL Normal 14.7-205.1 [facility] Comment on above: Order Comment: Speci men Type: BLOOD SPECIMENOrdering Facility: [facility] Address: [address] [place] [address] Performed By: #### 5 0190-8, 2276-4, 3016-3, 16814-8 ####[facility] LABCLIA [id number] [place] [address] [place] Folate SerPl-mCncon 07-07-19 25 Folate [Mass/Vol] 19.3 ng/mL Normal >4.7 [facility] Comment on above: Order Comment: Speci men Type: BLOOD SPECIMENOrdering Facility: [facility] Address: [address] [place] [address] Performed By: #### 2 532-0, 2284-8, 00246-0, 2131-10 ####[facility] LABCLIA [id number] [place] [address] [place] Iron and Iron binding capaci ty panelon 07-06-2024 Iron [Mass/Vol] 32 ug/dL Low 41-186 [facility] Comment on above: Order Comment: Speci men Type: BLOOD SPECIMENOrdering Facility: [facility] Address: [address] [place] [address] Performed By: #### 5 0190-8, 6-4, 3016-3, 77606-4 ####[facility] LABCLIA [id number] [place] [address] [place] Iron binding capacity [Mass/Vol] 330 ug/dL Normal 232-386 [facility] Comment on above: Order Comment: Speci men Type: BLOOD SPECIMENOrdering Facility: [facility] Address: [address] [place] [address] Performed By: #### 5 0190-8, 6-4, 6-3, ####[facility] LABIA [id number] [place] [address] [place] Iron/TIBC [Molar ratio] 9.7 % Low 15.0-57.0 C [facility] Comment on above: Order Comment: Speci men Type: BLOOD SPECIMENOrdering Facility: [facility] Address: [address] [place] [address] Performed By: #### 5 0190-8, 6-4, 3015-3, ####[facility] LABIA [id number] [place] [address] [place] LDH SerPl-cCncon 07-06-2024 LDH [Catalytic activity/Vol] 162 U/L Normal 135-214 [facility] Comment on above: Order Comment: Speci men Type: BLOOD SPECIMENOrdering Facility: [facility] Address: [address] [place] [address] Performed By: #### 2 532-0, 2284-8, 91057-0, 9 ####[facility] LABCLIA [id number] [place] [id number] [place] Magnesium SerPl-mCncon 07-06 Magnesium [Mass/Vol] 1.5 mg/dL Low 1.7-2.[address] [facility] Comment on above: Order Comment: Speci men Type: BLOOD SPECIMENOrdering Facility: [facility] Address: [address] [place] [address] Performed By: #### 5 0190-8, 2276-4, 3016-3, 41122-1 ####[facility] [id number] [place] [address] [place] Retics #on 07-06-2024 Reticulocytes (Bld) [#/Vol] 0.65385 10*3/uL Normal 0.018-0.100 [facility] Comment on above: Order Comment: Speci men Type: BLOOD SPECIMENOrdering Facility: [facility] Address: [address] [place] [address] Performed By: #### 5 7021-8, 71107-0 ####[facility] [id number] [place] [address] [place] Reticulocytes (Bld) [#/Vol]o n 07-06-2024 Reticulocytes/100 RBC (Bld) 1.5 % Normal 0.4-2.0 [facility] Comment on above: Order Comment: Speci men Type: BLOOD SPECIMENOrdering Facility: [facility] Address: [address] [place] [address] Performed By: #### 5 7021-8, 49360-2 ####[facility] [id number] [place] [address] [place] TSH SerPl-aCncon 07-06-2024 TSH Qn 1.940 m[IU]/L Normal 0.270-4.200 [facility] Comment on above: Order Comment: Speci men Type: BLOOD SPECIMENOrdering Facility: [facility] Address: [address] [place] [address] Performed By: #### 5 0190-8, 2276-4, 3016-3, 18572-3 ####[facility] LABCLIA [id number] [place] [id number] [facility] Vit B12 SerPl-mCncon 025 Cobalamin (Vitamin B12) [Mass/Vol] 370 pg/mL Normal 232-1245 [facility] Comment on above: Order Comment: Speci men Type: BLOOD SPECIMENOrdering Facility: [facility] Address: [address] [place] [address] Performed By: #### 2 532-0, 2284-8, 77892-0, 2132-9 ####[facility] LABCLIA [id number] [address] XR ABD 2V SUPINE W UPR/DECUB /CTLon 07-06-2024 XR ABD 2V SUPINE W UPR/DECUB/CTL * * *Final Report* * * DATE OF EXAM: Jul 06 2024 1:31PM WOX 5356 - XR ABD 2V SUPINE W UPR/DECUB/CTL / PROCEDURE REASON: Acute constipation * * * * Physician Interpretation * * * * EXAMINATION: XR ABD 2V SUPINE W UPR/DECUB/CTL TECHNOLOGIST PROVIDED HISTORY: Acute constipation CLINICAL INFORMATION: 78 years old Female with Acute constipation COMPARISON: [facility] 04/27/2024 TECHNIQUE: Supine and upright views. 4 image(s) RESULT: No dilated bowel. No free air or air-fluid levels on the upright views. Mild-moderate colonic stool burden. IMPRESSION: No dilated bowel. Mild-moderate colonic stool burden. Facilities Custodian: SHANNON Transcribe Date/Time: Jul 06 2024 2:40P Dictated by : AYAZ COVARRUBIAS DO This examination was interpreted and the report reviewed and electronically signed by: AYAZ COVARRUBIAS DO on Jul 06 2024 2:43PM EST [id number] Normal [facility] XR Abdomen Supine and Uprigh ton 07-06-2024 IMPRESSION: No dilated bowel. Mild-moderate colonic stool burden. Facilities Custodian: SHANNON Transcribe Date/Time: Jul 06 2024 2:40P Dictated by : AYAZ COVARRUBIAS DO This examination was interpreted and the report reviewed and electronically signed by: AYAZ COVARRUBIAS DO on Jul 06 2024 2:43PM [facility] [[email or web address] DIVISION OF RADIOLOGY * * *Final Report* * * DATE OF EXAM: Jul 06 2024 1:31PM WOX 5356 - XR ABD 2V SUPINE W UPR/DECUB/CTL / PROCEDURE REASON: Acute constipation * * * * Physician Interpretation * * * * EXAMINATION: XR ABD 2V SUPINE W UPR/DECUB/CTL TECHNOLOGIST PROVIDED HISTORY: Acute constipation CLINICAL INFORMATION: 78 years old Female with Acute constipation COMPARISON: [facility] 04/27/2024 TECHNIQUE: Supine and upright views. 4 image(s) RESULT: No dilated bowel. No free air or air-fluid levels on the upright views. Mild-moderate colonic stool burden. DIVISION OF RADIOLOGY Provider, [facility] - 07/06/2024 * * *Final Report* * * DATE OF EXAM: Jul 06 2024 1:31PM WOX 5356 - XR ABD 2V SUPINE W UPR/DECUB/CTL / PROCEDURE REASON: Acute constipation * * * * Physician Interpretation * * * * EXAMINATION: XR ABD 2V SUPINE W UPR/DECUB/CTL TECHNOLOGIST PROVIDED HISTORY: Acute constipation CLINICAL INFORMATION: 78 years old Female with Acute constipation COMPARISON: [facility] 04/27/2024 TECHNIQUE: Supine and upright views. 4 image(s) RESULT: No dilated bowel. No free air or air-fluid levels on the upright views. Mild-moderate colonic stool burden. IMPRESSION IMPRESSION: No dilated bowel. Mild-moderate colonic stool burden. Facilities Custodian: HSANNON Transcribe Date/Time: Jul 06 2024 2:40P Dictated by : AYAZ CVOARRUBIAS DO This examination was interpreted and the report reviewed and electronically signed by: AYAZ COVARRUBIAS DO on Jul 06 2024 2:43PM [facility] Radiology Study observation (narrative) Martha Hadley XR Abdomen Supine and Uprigh tOrdered By: Cc Provider on 07-06-2024 [facility] CNPNon 07-04-2024 CNPN Telephone (FAMPWS) MONISHA FITZPATRICK ([id number]) 1945 F Date Time Provider Department 07/04/24 DEONTE HAMM During your visit today, we recorded the following information about you: Sol Veras, RN 07/04/2024 12:40 PM Signed Pt's son Christopher calling in to update Dr. Hamm. States pt was in [facility] last week from 06/26-06/29. He scheduled a follow up appt with Dr. Hamm via Droplr this coming . This was for only a 20 min appt. Geraldine from Dr. Hamm has already called and spoken to Christopher and the appt is now 40 min long and she has records from [facility] stay. Christopher states pt was diagnosed with Afib during the admission and is now on Eliquis. He states she had several medication changes. Since then, it appears some of the medication is giving her a bad taste in her mouth. So bad that she is nauseated and doesn't want to eat. Yesterday evening she even vomited and couldn't take her evening meds. Christopher is wondering if maybe one of the new meds is causing this and can they change it. Pt also is now seeing Dr. Barahona with [facility]. She is seeing him at [address] Hamm's appt on . Explained that no med changes can be done at this time. Will have to review at appt with Dr. Hamm and with Dr. Barahona depending on medications. They feel it is med related that she is not feeling well as she felt fine this morning until she took her meds and now she is feeling poorly again with the bad taste in her mouth and feeling sick to her stomach. Christopher also states that pt had a CT scan and had an allergic reaction to the contrast. Pt already had an allergy to Prednisone so they gave her some other type of steroid treatment and she had a reaction to that as well. Pt was also in hospital for impacted bowels which has improved but they had mentioned to Christopher that the Ondansetron that pt was taking could have made her constipated as well. Son asking if it would be okay if she took another one of those today to see if that helps her. Informed that one should be okay. He states pt is now on Miralax daily and Dulcolax stool softener twie daily. Allergies As of Date: 07/04/2024 Noted Allergy Reaction LISINOPRIL 02/06/2012 7 - Swelling Comments: angioedema DOXYCYCLINE 05/18/2017 8 - GI Upset Comments: Nausea w/o vomiting, bad taste PENICILLIN G 01/05/2005 PREDNISONE 01/07/2005 Comments: ROMEL SULFA (SULFONAMIDE ANTIBIOTICS) 01/05/2005 Date Reviewed: 06/21/2024 Reviewed by: Geraldine Romano LPN - Fully Assessed Reason for Visit: Patient Update [1234] Hospital F/U [57] Prescriptions as of 07/04/2024 - hydrocortisone (ANUSOL-HC) 2.5 % rectal cream by RECTAL route two times a day for 7 days. - ondansetron (ZOFRAN) 4 mg tablet Take 1 tablet by mouth every 8 hours as needed for nausea/vomiting. - amLODIPine (NORVASC) 2.5 mg tablet Take 1 tablet by mouth once daily. - metoprolol succinate ER (TOPROL XL) 50 mg 24 hr tablet Take 1 tablet by mouth once daily. - blood sugar diagnostic (ACCU-CHEK FAISAL) test strip Test blood sugar(s) one time daily. Dx: E11.9. Insulin: No - albuterol HFA (VENTOLIN HFA) 90 mcg/actuation inhaler Inhale 2 Puffs as instructed every 4 hours as needed for wheezing/shortness of breath. - losartan (COZAAR) 100 mg tablet Take 1 tablet by mouth once daily. - metFORMIN (GLUCOPHAGE) 500 mg tablet Take 2 tablets by mouth two times a day with meals. . - atorvastatin (LIPITOR) 20 mg tablet Take 1 tablet by mouth daily at bedtime. For cholesterol. - EPINEPHrine (EPIPEN) 0.3 mg/0.3 mL auto-injector 0.3 ml subcutaneously as needed for hypersensitivity reaction - fluticasone (FLONASE) 50 mcg/actuation nasal spray Use 2 Sprays in each nostril once daily. ONE TO TWO SPRAYS TO EACH NOSTRIL ONCE DAILY - Lancing Device with Lancets (ACCU-CHEK FASTCLIX LANCING DEV) 1 Each as directed. Use as directed. DX: E11.9, Insulin: No - aflibercept opthalmic intravitreal (EYLEA) 2 mg/0.05 mL soln Use 0.05 mL in the left eye one time only for 1 dose. - Lancets (ACCU-CHEK MULTICLIX LANCET) lancets 1 Each as directed. daily. Use as instructed. Dx 250.00 No insulin - ibuprofen (MOTRIN) 400 mg tablet Take 1 tablet by mouth twice daily as needed for Pain. - docusate sodium (COLACE) 100 mg capsule Take 100 mg by mouth twice daily. - psyllium seed/sucrose(METAMUCIL SMOOTH TEXTURE 28 % PACKET) twicw daily - CALCIUM 600 + D 600 MG-125 UNIT TAB Take one(1) tablet two(2) times daily. Problem List As Of Date 07/04/2024 Noted Resolved HYPERLIPIDEMIA NEC/NOS [E78.5] 05/12/2005 11/16/2014 BENIGN HYPERTENSION [I10] 05/12/2005 External hemorrhoids without mention of complic* 03/08/2014 Internal hemorrhoids without mention of complic* 03/08/2014 Type II or unspecified type diabetes mellitus w*10/10/2007 02/23/2013 LUMB DISC DIS W MYELOPAT [M51.06] 11/17/2007 VOCAL C (more content not included)... Normal [facility] Vitamin D 1,25-Dihydroxyon 0 06-30-2024 VIT D 1,25 DIHY 73.7 pg/mL Normal 24.8-81.5 [facility] Comment on above: Result Comment: Perf ormed at: BN - [facility] [address] [id number] Automatic Developer: Arthur Rosa MD, Phone: [phone] Performed By: #### L 501.9090, L501.5200, L500.2500, L100.0100 #### [facility] [address] [place], [address] Anion gap in Serum or Plasma Ordered By: Yumiko Grande on 06-29-2024 Anion gap [Moles/Vol] 12 mmol/L 5-15 [facility] BUN/creatinine ratioOrdered By: Yumiko Grande on 06-29-2024 Urea nitrogen/Creatinine [Mass ratio] 32.5 mg/mg High 10-20 [facility] Basic Metabolic Profile (BMP )on 06-29-2024 BUN/CRE 32.5 RATIO High 10-20 [facility] Comment on above: Performed By: #### L 501.2300, L501.5200, L500.2500, L100.0100 #### [facility] [address] [place], [address] Calcium [Mass/Vol] 8.8 mg/dL Normal 7.6-11.0 [facility] Comment on above: Performed By: #### L 501.2300, L501.5200, L500.2500, L100.0100 #### [facility] [address] [place], [address] Chloride [Moles/Vol] 107 mmol/L Normal 98-108 [facility] Comment on above: Performed By: #### L 501.2300, L501.5200, L500.2500, L100.0100 #### [facility] [address] [place], [address] CO2 [Moles/Vol] 20.4 mmol/L Low 21.0-32.0 [facility] Comment on above: Performed By: #### L 501.2300, L501.5200, L500.2500, L100.0100 #### [facility] [address] [place], [address] Creatinine [Mass/Vol] 0.83 mg/dL Normal 0.70-1.20 [facility] Comment on above: Performed By: #### L 501.2300, L501.5200, L500.2500, L100.0100 #### [facility] [address] [place], [address] ECRCL 52.29 ml/min Normal 50-250 [facility] Comment on above: Performed By: #### L 501.2300, L501.5200, L500.2500, L100.0100 #### [facility] [address] [place], [address] GAP 12 Normal 5-15 [facility] Comment on above: Performed By: #### L 501.2300, L501.5200, L500.2500, L100.0100 #### [facility] [address] [place], [address] GFR/1.73 sq M.predicted among non-blacks MDRD (S/P/Bld) [Vol rate/Area] 72 mL/min/{1.73_m2} Normal >60 [facility] Comment on above: Result Comment: mL/m in/1.73m2 CKD-EPI Creatinine Equation (2020) Performed By: #### L 501.2300, L501.5200, L500.2500, L100.0100 #### [facility] [address] [place], [address] Glucose [Mass/Vol] 129 mg/dL High 70-99 [facility] Comment on above: Performed By: #### L 501.2300, L501.5200, L500.2500, L100.0100 #### [facility] [address] [place], [address] Potassium [Moles/Vol] 3.2 mmol/L Low 3.3-5.1 [facility] Comment on above: Result Comment: Hemo lysis present, Results??could be affected. ?? Performed By: #### L 501.2300, L501.5200, L500.2500, L100.0100 #### [facility] [address] [place], [address] Sodium [Moles/Vol] 139 mmol/L Normal 133-145 [facility] Comment on above: Performed By: #### L 501.2300, L501.5200, L500.2500, L100.0100 #### [facility] [address] [place], [address] Urea nitrogen [Mass/Vol] 27 mg/dL High 4-19 [facility] Comment on above: Performed By: #### L 501.2300, L501.5200, L500.2500, L100.0100 #### [facility] [address] [place], [address] Bedside Glucoseon 06-29-2024 FINGERSTICK GLU 121 mg/dL High 74-106 [facility] Comment on above: Result Comment: CHANDLER GEMENT OF PATIENT CARE PER NURSING PROTOCOL Performed By: #### L 501.080 #### [facility] [address] [place], [address] FINGERSTICK GLU 130 mg/dL High 74-106 [facility] Comment on above: Result Comment: CHANDLER GEMENT OF PATIENT CARE PER NURSING PROTOCOL Performed By: #### L 501.2300, L501.5200, L500.2500, L100.0100 #### [facility] [address] [place], [address] CBC-Complete Blood Cnt No Di ffon 06-29-2024 Erythrocyte distribution width (RBC) [Ratio] 13.8 % Normal 11.6-14.6 [facility] Comment on above: Performed By: #### L 501.2300, L501.5200, L500.2500, L100.0100 #### [facility] [address] [place], [address] Hematocrit (Bld) [Volume fraction] 30.5 % Low 37-47 [facility] Comment on above: Performed By: #### L 501.2300, L501.5200, L500.2500, L100.0100 #### [facility] [address] [place], [address] Hemoglobin (Bld) [Mass/Vol] 10.3 g/dL Low 12.0-15.0 [facility] Comment on above: Performed By: #### L 501.2300, L501.5200, L500.2500, L100.0100 #### [facility] [address] [place], [address] MCH (RBC) [Entitic mass] 29.9 pg Normal 27.0-32.0 [facility] Comment on above: Performed By: #### L 501.2300, L501.5200, L500.2500, L100.0100 #### [facility] [address] [place], [address] MCHC (RBC) [Mass/Vol] 33.8 g/dL Normal 32-36 [facility] Comment on above: Performed By: #### L 501.2300, L501.5200, L500.2500, L100.0100 #### [facility] [address] [place], [address] MCV (RBC) [Entitic vol] 88.7 fL Normal 81-99 [facility] Comment on above: Performed By: #### L 501.2300, L501.5200, L500.2500, L100.0100 #### [facility] [address] [place], [address] Platelet mean volume (Bld) [Entitic vol] 10.4 fL Normal 6.2-12.0 [facility] Comment on above: Performed By: #### L 501.2300, L501.5200, L500.2500, L100.0100 #### [facility] [address] [place], [address] Platelets (Bld) [#/Vol] 340 10*3/uL Normal 150-450 [facility] Comment on above: Performed By: #### L 501.2300, L501.5200, L500.2500, L100.0100 #### [facility] [address] [place], [address] RBC (Bld) [#/Vol] 3.44 10*6/uL Low 4.2-5.4 [facility] Comment on above: Performed By: #### L 501.2300, L501.5200, L500.2500, L100.0100 #### [facility] [address] [place], [address] RDW SD 44.4 fl High 35.1-43.9 [facility] Comment on above: Performed By: #### L 501.2300, L501.5200, L500.2500, L100.0100 #### [facility] [address] [place], [address] WBC (Bld) [#/Vol] 11.0 10*3/uL Normal 4.4-11.0 [facility] Comment on above: Performed By: #### L 501.2300, L501.5200, L500.2500, L100.0100 #### [facility] [address] [place], [address] Carbon dioxide, total [Moles /volume] in Central venous bloodOrdered By: Yumiko Grande on 06-29-2024 CO2 [Moles/Vol] 20.4 mmol/L Low 21.0-32.0 [facility] Chloride assayOrdered By: Jeremie Grande on 06-29-2024 Chloride [Moles/Vol] 107 mmol/L 98-108 [facility] Erythrocyte distribution wid th ratioOrdered By: Yumiko Grande on 06-29-2024 Erythrocyte distribution width (RBC) [Ratio] 13.8 % 11.6-14.6 [facility] Erythrocyte distribution wid th standard deviationOrdered By: Yumiko Grande on 06-29-2024 Erythrocyte distribution width (RBC) [Ratio] 44.4 fl High 35.1-43.9 [facility] Glomerular filtration rate ( GFR) estimation/1.73 sq m using serum, plasma, or whole bOrdered By: Yumiko Grande on 06-29-2024 GFR/1.73 sq M.predicted among non-blacks MDRD (S/P/Bld) [Vol rate/Area] 72 mL/min/{1.73_m2} >60 [facility] Comment on above: mL/min/1.73m2 CKD-EP I Creatinine Equation (2020) [facility] deOrdered By: Yumiko Grande on 06-29-2024 Glucose [Mass/Vol] 121 mg/dL High 74-106 [facility] Comment on above: MANAGEMENT OF PATIEN T CARE PER NURSING PROTOCOL Hematocrit Auto (Bld) [Volum e fraction]Ordered By: Yumiko Grande on 06-29-2024 Hematocrit (Bld) [Volume fraction] 30.5 % Low 37-47 [facility] Hemoglobin measurementOrdere d By: Yumiko Grande on 06-29-2024 Hemoglobin (Bld) [Mass/Vol] 10.3 g/dL Low 12.0-15.0 [facility] MCV (mean corpuscular volume ) determinationOrdered By: Yumiko Grande on 06-29-2024 MCV (RBC) [Entitic vol] 88.7 fL 81-99 [facility] Magnesiumon 06-29-2024 Magnesium [Mass/Vol] 1.7 mg/dL Normal 1.5-2.2 [facility] Comment on above: Performed By: #### L 501.2300, L501.5200, L500.2500, L100.0100 #### [facility] [address] [place], [place], [id number] Magnesium measurement (mass/ volume)Ordered By: Yumiko Grande on 06-29-2024 Magnesium (Unsp spec) [Mass/Vol] 1.7 mg/dL 1.5-2.2 [facility] Mean corpuscular hemoglobin (MCH) determinationOrdered By: Yumiko Grande on 06-29-2024 MCH (RBC) [Entitic mass] 29.9 pg 27.0-32.0 [facility] Mean corpuscular hemoglobin concentration (MCHC) determinationOrdered By: Yumiko Grande on 06-29-2024 MCHC (RBC) [Mass/Vol] 33.8 g/dL 32-36 [facility] Mean platelet volume determi nationOrdered By: Yumiko Grande on 06-29-2024 Platelet mean volume (Bld) [Entitic vol] 10.4 fL 6.2-12.0 [facility] Platelet countOrdered By: Jeremie Grande on 06-29-2024 Platelets (Bld) [#/Vol] 340 10*3/uL 150-450 [facility] Potassium measurement (mass/ volume)Ordered By: Yumiko Grande on 06-29-2024 Potassium (Unsp spec) [Mass/Vol] 3.2 mmol/L Low 3.3-5.1 [facility] Comment on above: Hemolysis present, R esults could be affected. RBC Auto (Bld) [#/Vol]Ordere d By: Yumiko Grande on 06-29-2024 RBC (Bld) [#/Vol] 3.44 10*6/uL Low 4.2-5.4 [facility] Serum creatinine measurement (mass/volume)Ordered By: Yumiko Grande on 06-29-2024 Creatinine [Mass/Vol] 0.83 mg/dL 0.70-1.20 [facility] Serum glucose measurement (m ass/volume)Ordered By: Yumiko Grande on 06-29-2024 Glucose [Mass/Vol] 129 mg/dL High 70-99 [facility] Serum or plasma calcium cheryl urement (mass/volume)Ordered By: Yumiko Grande on 06-29-2024 Calcium [Mass/Vol] 8.8 mg/dL 7.6-11.0 [facility] Serum or plasma urea nitroge n measurement (mass/volume)Ordered By: Yumiko Grande on 06-29-2024 Urea nitrogen [Mass/Vol] 27 mg/dL High 4-19 [facility] Sodium levelOrdered By: Sarika Grande on 06-29-2024 Sodium [Moles/Vol] 139 mmol/L 133-145 [facility] White blood cell (WBC) count Ordered By: Yumiko Grande on 06-29-2024 WBC (Bld) [#/Vol] 11.0 10*3/uL 4.4-11.0 [facility] Absolute lymphocyte countOrd ered By: Yumiko Grande on 06-28-2024 Lymphocytes Auto (Unsp spec) [#/Vol] 1.75 10*3/uL 0.83-4.51 [facility] Absolute neutrophil countOrd ered By: Yumiko Grande on 06-28-2024 Neutrophils (Bld) [#/Vol] 9.3 10*3/uL High 2.0-7.7 [facility] Automated lymphocyte count a s percentage of total leukocytesOrdered By: Yumiko Grande on 06-28-2024 Lymphocytes/100 WBC Auto (Unsp spec) 14.2 % Low 19-41 [facility] Basic Metabolic Profile (BMP )on 06-28-2024 BUN/CRE 35.3 RATIO High 10-20 [facility] Comment on above: Performed By: #### L 501.2300, L501.5200, L500.2500, L100.0100 #### [facility] [address] [place], [address] Calcium [Mass/Vol] 8.7 mg/dL Normal 7.6-11.0 [facility] Comment on above: Performed By: #### L 501.2300, L501.5200, L500.2500, L100.0100 #### [facility] [address] [place], [address] Chloride [Moles/Vol] 108 mmol/L Normal 98-108 [facility] Comment on above: Performed By: #### L 501.2300, L501.5200, L500.2500, L100.0100 #### [facility] [address] [place], [address] CO2 [Moles/Vol] 21.5 mmol/L Normal 21.0-32.0 [facility] Comment on above: Performed By: #### L 501.2300, L501.5200, L500.2500, L100.0100 #### [facility] [address] [place], [address] Creatinine [Mass/Vol] 0.96 mg/dL Normal 0.70-1.20 [facility] Comment on above: Performed By: #### L 501.2300, L501.5200, L500.2500, L100.0100 #### [facility] [address] [place], [address] ECRCL 45.21 ml/min Low 50-250 [facility] Comment on above: Performed By: #### L 501.2300, L501.5200, L500.2500, L100.0100 #### [facility] [address] [place], [address] GAP 12 Normal 5-15 [facility] Comment on above: Performed By: #### L 501.2300, L501.5200, L500.2500, L100.0100 #### [facility] [address] [place], [address] GFR/1.73 sq M.predicted among non-blacks MDRD (S/P/Bld) [Vol rate/Area] 61 mL/min/{1.73_m2} Normal >60 [facility] Comment on above: Result Comment: mL/m in/1.73m2 CKD-EPI Creatinine Equation (2020) Performed By: #### L 501.2300, L501.5200, L500.2500, L100.0100 #### [facility] [address] [place], [address] Glucose [Mass/Vol] 123 mg/dL High 70-99 [facility] Comment on above: Performed By: #### L 501.2300, L501.5200, L500.2500, L100.0100 #### [facility] [address] [place], [address] Potassium [Moles/Vol] 2.7 mmol/L Invalid Interpretation Code 3.3-5.1 [facility] Comment on above: Result Comment: Crit ical Result(s) Called at: 0629 by:??JOSE KHANN TO МАРИЯ READ Results read back by same. Performed By: #### L 501.2300, L501.5200, L500.2500, L100.0100 #### [facility] [address] [place], [address] Sodium [Moles/Vol] 141 mmol/L Normal 133-145 [facility] Comment on above: Performed By: #### L 501.2300, L501.5200, L500.2500, L100.0100 #### [facility] [address] [place], [address] Urea nitrogen [Mass/Vol] 34 mg/dL High 4-19 [facility] Comment on above: Performed By: #### L 501.2300, L501.5200, L500.2500, L100.0100 #### [facility] [address] [place], [address] Basophil percentageOrdered B y: Yumiko Grnade on 06-28-2024 Basophils/100 WBC (Bld) 0.2 % 0-1 [facility] Bedside Glucoseon 06-28-2024 FINGERSTICK GLU 157 mg/dL High 74-106 [facility] Comment on above: Result Comment: CHANDLER GEMENT OF PATIENT CARE PER NURSING PROTOCOL Performed By: #### L 501.2300, L501.5200, L500.2500, L100.0100 #### [facility] [address] [place], [address] FINGERSTICK GLU 177 mg/dL High 74-106 [facility] Comment on above: Result Comment: CHANDLER GEMENT OF PATIENT CARE PER NURSING PROTOCOL Performed By: #### L 501.2300, L501.5200, L500.2500, L100.0100 #### [facility] [address] [place], [address] FINGERSTICK GLU 146 mg/dL High 74-106 [facility] Comment on above: Result Comment: CHANDLER WONG OF PATIENT CARE PER NURSING PROTOCOL Performed By: #### L 501.080 #### [facility] [address] [place], [address] CBC W/Diff, Automatedon 05-2 Absolute Lymph 1.75 X10 3/uL Normal 0.83-4.51 [facility] Comment on above: Performed By: #### L 501.2300, L501.5200, L500.2500, L100.0100 #### [facility] [address] [place], [address] Absolute Neut 9.3 X10 3/uL High 2.0-7.7 [facility] Comment on above: Performed By: #### L 501.2300, L501.5200, L500.2500, L100.0100 #### [facility] [address] [place], [address] Basophils/100 WBC (Bld) 0.2 % Normal 0-1 [facility] Comment on above: Performed By: #### L 501.2300, L501.5200, L500.2500, L100.0100 #### [facility] [address] [place], [address] Eosinophils/100 WBC (Bld) 0.3 % Normal 0-5 [facility] Comment on above: Performed By: #### L 501.2300, L501.5200, L500.2500, L100.0100 #### [facility] [address] [place], [address] Erythrocyte distribution width (RBC) [Ratio] 13.5 % Normal 11.6-14.6 [facility] Comment on above: Performed By: #### L 501.2300, L501.5200, L500.2500, L100.0100 #### [facility] [address] [place], [address] Hematocrit (Bld) [Volume fraction] 28.4 % Low 37-47 [facility] Comment on above: Performed By: #### L 501.2300, L501.5200, L500.2500, L100.0100 #### [facility] [address] [place], [address] Hemoglobin (Bld) [Mass/Vol] 9.8 g/dL Low 12.0-15.0 [facility] Comment on above: Performed By: #### L 501.2300, L501.5200, L500.2500, L100.0100 #### [facility] [address] [place], [address] IG% 0.600 Normal 0.0-0.9 [facility] Comment on above: Result Comment: IG% - Immature Granulocytes (promyelocytes, myelocytes and metamyelocytes) > 1% indicates that a LEFT SHIFT is Present. Performed By: #### L 501.2300, L501.5200, L500.2500, L100.0100 #### [facility] [address] [place], [address] Lymphocytes/100 WBC (Bld) 14.2 % Low 19-41 [facility] Comment on above: Performed By: #### L 501.2300, L501.5200, L500.2500, L100.0100 #### [facility] [address] [place], [address] MCH (RBC) [Entitic mass] 30.1 pg Normal 27.0-32.0 [facility] Comment on above: Performed By: #### L 501.2300, L501.5200, L500.2500, L100.0100 #### [facility] [address] [place], [address] MCHC (RBC) [Mass/Vol] 34.5 g/dL Normal 32-36 [facility] Comment on above: Performed By: #### L 501.2300, L501.5200, L500.2500, L100.0100 #### [facility] [address] [place], [address] MCV (RBC) [Entitic vol] 87.1 fL Normal 81-99 [facility] Comment on above: Performed By: #### L 501.2300, L501.5200, L500.2500, L100.0100 #### [facility] [address] [place], [address] Monocytes/100 WBC (Bld) 8.7 % Normal 0-10 [facility] Comment on above: Performed By: #### L 501.2300, L501.5200, L500.2500, L100.0100 #### [facility] [address] [place], [address] Neutrophils/100 WBC (Bld) 76.0 % High 47-70 [facility] Comment on above: Performed By: #### L 501.2300, L501.5200, L500.2500, L100.0100 #### [facility] [address] [place], [address] Nucleated RBC (Bld) [#/Vol] 0 10*3/uL Normal 0-5 [facility] Comment on above: Performed By: #### L 501.2300, L501.5200, L500.2500, L100.0100 #### [facility] [address] [place], [address] Platelet mean volume (Bld) [Entitic vol] 10.2 fL Normal 6.2-12.0 [facility] Comment on above: Performed By: #### L 501.2300, L501.5200, L500.2500, L100.0100 #### [facility] [address] [place], [address] Platelets (Bld) [#/Vol] 376 10*3/uL Normal 150-450 [facility] Comment on above: Performed By: #### L 501.2300, L501.5200, L500.2500, L100.0100 #### [facility] [address] [place], [address] RBC (Bld) [#/Vol] 3.26 10*6/uL Low 4.2-5.4 [facility] Comment on above: Performed By: #### L 501.2300, L501.5200, L500.2500, L100.0100 #### [facility] [address] [place], [address] RDW SD 43.0 fl Normal 35.1-43.9 [facility] Comment on above: Performed By: #### L 501.2300, L501.5200, L500.2500, L100.0100 #### [facility] [address] [place], [address] WBC (Bld) [#/Vol] 12.3 10*3/uL High 4.4-11.0 [facility] Comment on above: Performed By: #### L 501.2300, L501.5200, L500.2500, L100.0100 #### [facility] [address] [place], [address] Culture, Blood (WB)on 2024 CUB Blood cultures x2, from two different sites No growth in 5 days. Normal [facility] Comment on above: Performed By: #### L 501.080 #### [facility] [address] [place], [address] Eosinophil percentageOrdered By: Yumiko Grande on 06-28-2024 Eosinophils/100 WBC (Bld) 0.3 % 0-5 [facility] Immature granulocytes/100 WB C Auto (Bld)Ordered By: Yumiko Grande on 06-28-2024 Immature granulocytes/100 WBC (Bld) 0.600 % 0.0-0.9 [facility] Comment on above: IG% - Immature Granu locytes (promyelocytes, myelocytes and metamyelocytes) > 1% indicates that a LEFT SHIFT is Present. Magnesiumon 06-28-2024 Magnesium [Mass/Vol] 1.4 mg/dL Low 1.5-2.2 [facility] Comment on above: Performed By: #### L 501.2300, L501.5200, L500.2500, L100.0100 #### [facility] [address] [place], [address] Monocyte percentageOrdered B y: Yumiko Grande on 06-28-2024 Monocytes/100 WBC (Bld) 8.7 % 0-10 [facility] Neutrophil percentageOrdered By: Yumiko Grande on 06-28-2024 Neutrophils/100 WBC (Bld) 76.0 % High 47-70 [facility] Nucleated red blood cell per centageOrdered By: Yumiko Grande on 06-28-2024 Nucleated RBC/100 WBC (Bld) [Ratio] 0 % 0-5 [facility] Phosphoruson 06-28-2024 Phosphate [Mass/Vol] 2.8 mg/dL Normal 2.7-4.5 [facility] Comment on above: Performed By: #### L 501.2300, L501.5200, L500.2500, L100.0100 #### [facility] [address] [place], [address] Basic Metabolic Profile (BMP )on 06-27-2024 BUN/CRE 44.6 RATIO High 10-20 [facility] Comment on above: Performed By: #### L 501.2300, L501.5200, L500.2500, L100.0100 #### [facility] [address] [place], [address] Calcium [Mass/Vol] 9.4 mg/dL Normal 7.6-11.0 [facility] Comment on above: Performed By: #### L 501.2300, L501.5200, L500.2500, L100.0100 #### [facility] [address] [place], [address] Chloride [Moles/Vol] 105 mmol/L Normal 98-108 [facility] Comment on above: Performed By: #### L 501.2300, L501.5200, L500.2500, L100.0100 #### [facility] [address] [place], [address] CO2 [Moles/Vol] 20.1 mmol/L Low 21.0-32.0 [facility] Comment on above: Performed By: #### L 501.2300, L501.5200, L500.2500, L100.0100 #### [facility] [address] [place], [address] Creatinine [Mass/Vol] 0.90 mg/dL Normal 0.70-1.20 [facility] Comment on above: Performed By: #### L 501.2300, L501.5200, L500.2500, L100.0100 #### [facility] [address] [place], [address] ECRCL 48.23 ml/min Low 50-250 [facility] Comment on above: Performed By: #### L 501.2300, L501.5200, L500.2500, L100.0100 #### [facility] [address] [place], [address] GAP 13 Normal 5-15 [facility] Comment on above: Performed By: #### L 501.2300, L501.5200, L500.2500, L100.0100 #### [facility] [address] [place], [address] GFR/1.73 sq M.predicted among non-blacks MDRD (S/P/Bld) [Vol rate/Area] 65 mL/min/{1.73_m2} Normal >60 [facility] Comment on above: Result Comment: mL/m in/1.73m2 CKD-EPI Creatinine Equation (2020) Performed By: #### L 501.2300, L501.5200, L500.2500, L100.0100 #### [facility] [address] [place], [address] Glucose [Mass/Vol] 146 mg/dL High 70-99 [facility] Comment on above: Performed By: #### L 501.2300, L501.5200, L500.2500, L100.0100 #### [facility] [address] [place], [address] Potassium [Moles/Vol] 3.1 mmol/L Low 3.3-5.1 [facility] Comment on above: Performed By: #### L 501.2300, L501.5200, L500.2500, L100.0100 #### [facility] [address] [place], [address] Sodium [Moles/Vol] 138 mmol/L Normal 133-145 [facility] Comment on above: Performed By: #### L 501.2300, L501.5200, L500.2500, L100.0100 #### [facility] [address] [place], [address] Urea nitrogen [Mass/Vol] 40 mg/dL High 4-19 [facility] Comment on above: Performed By: #### L 501.2300, L501.5200, L500.2500, L100.0100 #### [facility] [address] [place], [address] Bedside Glucoseon 06-27-2024 FINGERSTICK GLU 198 mg/dL High 74-106 [facility] Comment on above: Result Comment: CHANDLER GEMENT OF PATIENT CARE PER NURSING PROTOCOL Performed By: #### L 501.2300, L501.5200, L500.2500, L100.0100 #### [facility] [address] [place], [address] FINGERSTICK GLU 124 mg/dL High 74-106 [facility] Comment on above: Result Comment: CHANDLER GEMENT OF PATIENT CARE PER NURSING PROTOCOL Performed By: #### L 501.080 #### [facility] [address] [place], [address] FINGERSTICK GLU 142 mg/dL High 74-106 [facility] Comment on above: Result Comment: CHANDLER GEMENT OF PATIENT CARE PER NURSING PROTOCOL Performed By: #### L 501.2300, L501.5200, L500.2500, L100.0100 #### [facility] [address] [place], [address] Bilirubin directOrdered By: Velma Vazquez on 06-27-2024 Bilirubin.direct [Mass/Vol] 0.25 mg/dL 0.00-0.30 [facility] Bilirubin, totalOrdered By: Velma Vazquez on 06-27-2024 Bilirubin [Mass/Vol] 0.48 mg/dL 0.00-1.30 [facility] CBC W/Diff, Automatedon 06-09 Absolute Lymph 0.65 X10 3/uL Low 0.83-4.51 [facility] Comment on above: Performed By: #### L 501.2300, L501.5200, L500.2500, L100.0100 #### [facility] [address] [place], [address] Absolute Neut 11.1 X10 3/uL High 2.0-7.7 [facility] Comment on above: Performed By: #### L 501.2300, L501.5200, L500.2500, L100.0100 #### [facility] [address] [place], [address] Basophils/100 WBC (Bld) 0.2 % Normal 0-1 [facility] Comment on above: Performed By: #### L 501.2300, L501.5200, L500.2500, L100.0100 #### [facility] [address] [place], [address] Eosinophils/100 WBC (Bld) 0.0 % Normal 0-5 [facility] Comment on above: Performed By: #### L 501.2300, L501.5200, L500.2500, L100.0100 #### [facility] [address] [place], [address] Erythrocyte distribution width (RBC) [Ratio] 13.5 % Normal 11.6-14.6 [facility] Comment on above: Performed By: #### L 501.2300, L501.5200, L500.2500, L100.0100 #### [facility] [address] [place], [address] Hematocrit (Bld) [Volume fraction] 28.6 % Low 37-47 [facility] Comment on above: Performed By: #### L 501.2300, L501.5200, L500.2500, L100.0100 #### [facility] [address] [place], [address] Hemoglobin (Bld) [Mass/Vol] 9.8 g/dL Low 12.0-15.0 [facility] Comment on above: Performed By: #### L 501.2300, L501.5200, L500.2500, L100.0100 #### [facility] [address] [place], [address] IG% 0.500 Normal 0.0-0.9 [facility] Comment on above: Result Comment: IG% - Immature Granulocytes (promyelocytes, myelocytes and metamyelocytes) > 1% indicates that a LEFT SHIFT is Present. Performed By: #### L 501.2300, L501.5200, L500.2500, L100.0100 #### [facility] [address] [place], [address] Lymphocytes/100 WBC (Bld) 5.4 % Low 19-41 [facility] Comment on above: Performed By: #### L 501.2300, L501.5200, L500.2500, L100.0100 #### [facility] [address] [place], [address] MCH (RBC) [Entitic mass] 30.2 pg Normal 27.0-32.0 [facility] Comment on above: Performed By: #### L 501.2300, L501.5200, L500.2500, L100.0100 #### [facility] [address] [place], [address] MCHC (RBC) [Mass/Vol] 34.3 g/dL Normal 32-36 [facility] Comment on above: Performed By: #### L 501.2300, L501.5200, L500.2500, L100.0100 #### [facility] [address] [place], [address] MCV (RBC) [Entitic vol] 88.0 fL Normal 81-99 [facility] Comment on above: Performed By: #### L 501.2300, L501.5200, L500.2500, L100.0100 #### [facility] [address] [place], [address] Monocytes/100 WBC (Bld) 1.3 % Normal 0-10 [facility] Comment on above: Performed By: #### L 501.2300, L501.5200, L500.2500, L100.0100 #### [facility] [address] [place], [address] Neutrophils/100 WBC (Bld) 92.6 % High 47-70 [facility] Comment on above: Performed By: #### L 501.2300, L501.5200, L500.2500, L100.0100 #### [facility] [address] [place], [address] Nucleated RBC (Bld) [#/Vol] 0 10*3/uL Normal 0-5 [facility] Comment on above: Performed By: #### L 501.2300, L501.5200, L500.2500, L100.0100 #### [facility] [address] [place], [address] Platelet mean volume (Bld) [Entitic vol] 10.5 fL Normal 6.2-12.0 [facility] Comment on above: Performed By: #### L 501.2300, L501.5200, L500.2500, L100.0100 #### [facility] [address] [place], [address] Platelets (Bld) [#/Vol] 340 10*3/uL Normal 150-450 [facility] Comment on above: Performed By: #### L 501.2300, L501.5200, L500.2500, L100.0100 #### [facility] [address] [place], [address] RBC (Bld) [#/Vol] 3.25 10*6/uL Low 4.2-5.4 [facility] Comment on above: Performed By: #### L 501.2300, L501.5200, L500.2500, L100.0100 #### [facility] [address] [place], [address] RDW SD 43.8 fl Normal 35.1-43.9 [facility] Comment on above: Performed By: #### L 501.2300, L501.5200, L500.2500, L100.0100 #### [facility] [address] [place], [address] WBC (Bld) [#/Vol] 12.0 10*3/uL High 4.4-11.0 [facility] Comment on above: Performed By: #### L 501.2300, L501.5200, L500.2500, L100.0100 #### [facility] [address] [place], [address] Consultation - Surgicalon Consultation - Surgical [facility] Medical Records Department [address] [place] [address] Consultation - Surgical 06/27/24 1104 MR#: [id number] Acct: [id number] Name: MONISHA FITZPATRICK Rep #: [id number] : 1945 78 From: Tere ANDERSON PCP: Dr. Adrian Hamm MD Status:ADM IN Location: [place] [address] Assessment Plan Assessment/Plan (1) Lymphocele: PLAN: Plan Reviewed CTA images; do appreciate a cystic mass in the R groin but it is not associated with the femoral artery and does not appear to be associated with the vein either. There is no femoral artery aneurysm. Obtained a duplex to correlate; did not show any aneurysm, no vascularized flow through the mass, appears consistent with lymphocele. No intervention indicated at this time. HPI Consult Data Date of Consult: 06/27/24 HPI Narrative HPI Narrative: MONISHA FITZPATRICK, is a 78 F who presented to [facility] ER with abdominal pain, nausea, and reduced appetite with workup revealing of new-onset Afib, leukocytosis of unknown etiology, and lactic acidosis for which she was admitted for further management. 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 She reports a history of prior cystic mass in this region which she remotely (over 10 years ago) had aspiration which reportedly was unrevealing and ultimately this was felt to be benign. She has had this palpable lump here for many years, she reports it fluctuates in size throughout the day, it is not painful. She denies any history of surgery or injury to this area. [facility] Medical History Disorder of bone, unspecified Unintentional weight loss Fatigue White coat syndrome with hypertension Venous (peripheral) insufficiency Vasomotor rhinitis Unspecified essential hypertension Unspecified constipation Retinal hemorrhage Retinal edema Renal cyst Nonproliferative diabetic retinopathy of both eyes Laryngospasm Internal hemorrhoids without mention of complication Hyperlipidemia LDL goal <100 Hearing aid worn External hemorrhoids without mention of complication Esophageal reflux disease Diabetes mellitus with macular edema, both eyes Arthritis of both knees Aortic ejection murmur Home Medications ???Medication ???Instructions ???Recorded ???Last Taken ???Type aflibercept 2 mg/0.05 mL 2 mg intravitreal ONCE EYES Unknown History intravitreal solution for injection albuterol sulfate 90 mcg/actuation 2 puff inhalation Q4-6H PRN SOB 05/17/24 Unknown History aerosol inhaler atorvastatin 20 mg tablet 20 mg PO QHS CHOLESTEROL 05/17/24 Unknown History calcium carbonate-vitamin tab PO BID SUPPLEMENT 05/17/24 Unk nown History D2-minerals tablet docusate sodium 100 mg capsule 100 mg PO BID STOOL SOPFTENER 11/02 Unknown History epinephrine 0.3 mg/0.3 mL 0.3 mg IM Q5-15M PRN 05/17/24 Unkn own History injection, auto-injector bronchodilation fluticasone propionate 50 2 spray intranasal QDAY SINUSES Unknown History mcg/actuation nasal spray,suspension (Allergy Relief (fluticasone)) losartan 100 mg tablet 100 mg PO QDAY BLOOD PRESSURE 11/02 Unknown History metformin 500 mg tablet 1,000 mg PO BID DIABETES 05/17/24 Unknown History psyllium seed (sugar) oral powder 1 tbsp PO BID SUPPLEMENT 05/17/24 Unknown History (Fiber Therapy (psyllium seed-sucrose) oral powder) metoprolol succinate 50 mg 50 mg PO QDAY BLOOD PRESSURE #90 0 05/25/24 Unknown Rx tablet,extended release 24 hr tabs amlodipine 2.5 mg tablet 2.5 mg PO QDAY BLOOD PRESSURE #30 06/06/24 Unknown Rx tabs hydrochlorothiazide 12.5 mg capsule 12.5 mg PO DAILY UNKNOWN Unknown History metoprolol succinate 25 mg 25 mg PO DAILY BLOOD PRESSURE 06/08 11/02 Unknown History tablet,extended release 24 hr ondansetron HCl 4 mg tablet 4 mg PO Q8H PRN PRN nausea/vomitin g 06/26/24 Unknown History Allergy/AdvReac Type Severity Reaction Status Date / Time lisinopril Allergy Severe Angioedema Verified 06/26/24 11:04 penicillin G Allergy Unknown PT UNSURE Verified 06/26/24 11:04 OF REACTION Sulfa (Sulfonamide Allergy Unknown PT UNSURE Verified 06/26/24 11:04 Antibiotics) OF REACTION Iodinated Contrast Media (iv Allergy Swelling Verified 06/26/24 17:53 contrast) doxycycline AdvReac Intermediate Nausea Verified 06/26/24 11:04 prednisone AdvReac Mild Other Verified 06/26/24 11:04 Family History Mother Stomach ulcer Father CAD (coronary artery disease) Emphysema, unspecified Grandmother Diabetes Aunt Diabetes Uncle Diabetes Surgical History (Reviewed 06/26 (more content not included)... Normal [facility] - Chemistry and C hemistry - challengeOrdered By: Velma Vazquez on 06-27-2024 AST [Catalytic activity/Vol] 22 U/L <32 [facility] Liver Profileon 06-27-2024 Albumin [Mass/Vol] 3.1 g/dL Low 3.4-4.8 [facility] Comment on above: Performed By: #### L 501.2300, L501.5200, L500.2500, L100.0100 #### [facility] [address] [place], [place], [id number] (522 ALK PHOS 75 U/L Normal 35-104 [facility] Comment on above: Performed By: #### L 501.2300, L501.5200, L500.2500, L100.0100 #### [facility] [address] [place], [address] ALT [Catalytic activity/Vol] 13 U/L Normal <=34 [facility] Comment on above: Performed By: #### L 501.2300, L501.5200, L500.2500, L100.0100 #### [facility] [address] [place], [address] AST [Catalytic activity/Vol] 22 U/L Normal <=31 [facility] Comment on above: Performed By: #### L 501.2300, L501.5200, L500.2500, L100.0100 #### [facility] [address] [place], [address] Bilirubin [Mass/Vol] 0.48 mg/dL Normal 0.00-1.30 [facility] Comment on above: Performed By: #### L 501.2300, L501.5200, L500.2500, L100.0100 #### [facility] [address] [place], [address] Bilirubin.direct [Mass/Vol] 0.25 mg/dL Normal 0.00-0.30 [facility] Comment on above: Performed By: #### L 501.2300, L501.5200, L500.2500, L100.0100 #### [facility] [address] [place], [address] Globulin (S) [Mass/Vol] 2.7 g/dL Normal 2.2-4.2 [facility] Comment on above: Performed By: #### L 501.2300, L501.5200, L500.2500, L100.0100 #### [facility] [address] [place], [address] T PROT 5.9 g/dL Normal 5.9-8.4 [facility] Comment on above: Performed By: #### L 501.2300, L501.5200, L500.2500, L100.0100 #### [facility] [address] [place], [address] Magnesiumon 06-27-2024 Magnesium [Mass/Vol] 1.8 mg/dL Normal 1.5-2.2 [facility] Comment on above: Performed By: #### L 501.2300, L501.5200, L500.2500, L100.0100 #### [facility] [address] [place], [place], [id number] Serum globulin measurementOr dered By: Velma Vazquez on 06-27-2024 Globulin (S) [Mass/Vol] 2.7 g/dL 2.2-4.2 [facility] Serum or plasma alanine arce otransferase (ALT) measurementOrdered By: Velma Vazquez on 06-27-2024 ALT [Catalytic activity/Vol] 13 U/L <35 [facility] Serum or plasma albumin cheryl urement (mass/volume)Ordered By: Velma Vazquez on 06-27-2024 Albumin [Mass/Vol] 3.1 g/dL Low 3.4-4.8 [facility] Serum or plasma alkaline lulu sphatase measurementOrdered By: Velma Vazquez on 06-27-2024 ALP [Catalytic activity/Vol] 75 U/L 35-104 [facility] Serum or plasma calcitriol m easurement (mass/volume)Ordered By: Velma Vazquez on 06-27-2024 1,25-dihydroxyvitamin D3 [Mass/Vol] 73.7 pg/mL 24.8-81.5 [facility] Comment on above: Performed at: [address] [id number] Director: Arthur Rosa MD, Phone: [phone] TSH DL <= 0.005 mIU/L QnOrde red By: Velma Vazquez on 06-27-2024 TSH Qn 0.348 uIU/mL 0.300-4.200 [facility] Thyroid Stim Hormone (TSH)on 06-27-2024 TSH 0.348 uIU/mL Normal 0.300-4.200 [facility] Comment on above: Performed By: #### L 501.2300, L501.5200, L500.2500, L100.0100 #### [facility] [address] [place], [place], [id number] Total proteinOrdered By: Brannon Vazquez on 06-27-2024 Protein [Mass/Vol] 5.9 g/dL 5.9-8.4 [facility] Art Duplex Unilat Lower E xton 06-27-2024 Art Duplex Unilat Lower Ext [facility] [address] [place] [address] Art Duplex Unilat Lower Ext 06/27/24 1109 MR#: [id number] Acct: [id number] Name: MONISHA FITZPATRICK Rep #: [id number] : 1945 78 From: Taiwo Topete MD Attending Dr: Dr. Yumiko Grande, DO Status: ADM I N Ordering Dr: Tere Dickey Date: 06/27/24 Location: [facility] Sex: F C Admitted: 06/26/24 Reason For Study Reason For Study: Cystic mass right groin, r/o vascular involvement Right [employer]IST, 0.91 x 0.89 cm, 134.5 cm/sec. SFA prox, 0.66 x 0.64 cm, 85.3 cm/sec. Profunda A, 85.4 cm/sec. Nonvascularized structure noted in the right scott that measures 4.01 x 4.45 x 5.45 cm. Preliminary report given to Tere ANDERSON. /US Art Duplex Unilat Lower Ext Interpretation Summary Patent right femoral vessels with no evidence of fistula or pseudoaneurysm. Nonvascularized, cystic structure noted that measures 4.01 x 4.45 x 5.45 cm. Ordering Physician: Tere Dickey Referring Physician: Deonte Mejia Performed By: Tammy Mahan RVT 06/27/24 1458 Date Taiwo Topete MD CC: JUSTIN Benson; Dr. Adrian Hamm MD; Dr. Yumiko Grande DO Date Dictated: 06/27/24 1109 Date Transcribed: 06/27/24 1458 Facilities Custodian: Signed Normal [facility] Urine Cultureon 06-27-2024 URC Culture exhibits no growth. Normal [facility] Comment on above: Performed By: #### L 501.2300, L501.5200, L500.2500, L100.0100 #### [facility] [address] [facility] [place], [address] 12 Lead EKGon 06-26-2024 12 Lead EKG [facility] Cardiovascular Services [address] [place] [address] 12 Lead EKG 06/26/24 1112 MR#: [id number] Acct: [id number] Name: MONISHA FITZPATRICK Rep #: [id number] : 1945 78 From: Andrey Lord MD Attending Dr: Dr. Yumiko Grande DO Status: ADM I N Ordering Dr: Jordy Mireles DO Date: 06/26/24 Location: [facility] Sex: F C Admitted: 06/26/24 Test Reason : N/V/D Blood Pressure : */* mmHG Vent. Rate : 90 BPM Atrial Rate : * BPM P-R Int : * ms QRS Dur : 86 ms QT Int : 370 ms P-R-T Axes : * 30 224 degrees QTcB Int : 452 ms Atrial fibrillation Abnormal ECG Confirmed by ANDREY LORD MD ([id number]), editor managing director LUCIA NAPOLES ([id number]) on 06/27/2024 1:27:46 PM Referred By: Confirmed By: ANDREY LORD MD 06/27/24 1327 Date Andrey Lord MD CC: Dr. Adrian Hamm MD; Dr. Yumiko Grande DO; Dr. Jordy Mireles DO Signed Normal [facility] Abdomen/Pelvis W IV Cont ONL Yon 06-26-2024 Abdomen/Pelvis W IV Cont ONLY [facility] Imaging Services [address] [place] [address] Abdomen/Pelvis W IV Cont ONLY MR#: [id number] Acct: [id number] Name: MONISHA FITZPATRICK Rep #: [id number] : 1945 F 78 From: Owen palomares MD PCP: Dr. Adrian Hamm MD Status: REG ER Study: Abdomen/Pelvis W IV Cont ONLY Date of Exam: Exam# [id number] Ordering Dr: Jordy Mireles DO PROCEDURE: ABDOMEN/PELVIS W IV CONT ONLY 06/26/2024 REASON FOR EXAM: N/V Dehydration. TECHNIQUE: Abdomen and pelvis CT with intravenous contrast. Coronal and Sagittal reconstruction series were provided. PATIENT PREPARATION: Per protocol ORAL CONTRAST TYPE: None. CONTRAST: Isovue-300 VOLUME: 100 mL One or more dose reduction techniques were used (e.g., Automated exposure control, adjustment of the mA and/or kV according to patient size, use of iterative reconstruction technique. RADIATION DOSE SUMMARY: CTDlvol: 11.5 mGy DLP: 429.75 mGycm COMPARISON: None FINDINGS: Lung bases: Minimal linear atelectasis at the left lung base. Coronary artery calcification. Liver: Diffuse fatty infiltration. Gallbladder: Unremarkable Spleen: Normal size. Pancreas: Normal size without evidence of mass surrounding inflammation or ductal dilation. Adrenals: Unremarkable Kidneys: Punctate nonobstructive calculus in the upper pole calyx of the left kidney. Bladder: Unremarkable Reproductive Organs: Enlarged fibroid uterus. Bowel: Fecal impaction in the rectosigmoid colon. Appendix: The appendix is not identified. There is no inflammatory process identified in the right lower quadrant to suggest appendicitis. Lymph nodes: Unremarkable. Vasculature: Mild diffuse atherosclerotic calcifications are noted. There is evidence of a 4.5 cm by 3.8 cm partially calcified hypodensity in the right common femoral artery. This may represent an aneurysm. Clinical correlation recommended. Peritoneum / Retroperitoneum: Unremarkable Bones: Mild changes of the spine. CT/Abdomen/Pelvis W IV Cont ONLY IMPRESSION: Fecal impaction in the rectosigmoid colon. 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 Fecal impaction in the rectum. Soft tissue density seen in the region of the perineum. Questionable rectal prolapse. Clinical correlation recommended. Reading Location: [facility] CC: Dr. Adrian Hamm MD; Dr. Jordy Mireles DO Facilities Custodian: Signed Normal [facility] Absolute lymphocyte countOrd ered By: Jordy Mireles on 06-26-2024 Lymphocytes Auto (Unsp spec) [#/Vol] 0.99 10*3/uL 0.83-4.51 [facility] Absolute neutrophil countOrd ered By: Jordy Mireles on 06-26-2024 Neutrophils (Bld) [#/Vol] 16.5 10*3/uL High 2.0-7.7 [facility] Activated partial thrombopla stin time (aPTT) in platelet poor plasma by coagulation aOrdered By: Jordy Mireles on 06-26-2024 aPTT Coag (PPP) [Time] 23.8 s Low 24.1-36.2 [facility] Anion gap in Serum or Plasma Ordered By: Jordy Mireles on 06-26-2024 Anion gap [Moles/Vol] 14 mmol/L 5-15 [facility] Automated lymphocyte count a s percentage of total leukocytesOrdered By: Jordy Mireles on 06-26-2024 Lymphocytes/100 WBC Auto (Unsp spec) 5.3 % Low 19-41 [facility] BUN/creatinine ratioOrdered By: Jordy Mireles on 06-26-2024 Urea nitrogen/Creatinine [Mass ratio] 37.6 mg/mg High 10-20 [facility] Basophil percentageOrdered B y: Jordy Mireles on 06-26-2024 Basophils/100 WBC (Bld) 0.2 % 0-1 [facility] Bedside Glucoseon 06-26-2024 FINGERSTICK GLU 116 mg/dL High 74-106 [facility] Comment on above: Result Comment: CHANDLER WONG OF PATIENT CARE PER NURSING PROTOCOL Performed By: #### L 501.080 #### [facility] [address] [place], [address] Bilirubin Test strip Ql (U)O rdered By: Jordy Mireles on 06-26-2024 Bilirubin Ql (U) Negative Negative [facility] Bilirubin, totalOrdered By: Jordy Mireles on 06-26-2024 Bilirubin [Mass/Vol] 0.79 mg/dL 0.00-1.30 [facility] Blood cultureOrdered By: Naga Mireles on 06-26-2024 Bacteria identified Cx Nom (Bld) No growth in 5 days. [facility] Bacteria identified Cx Nom (Bld) No growth in 5 days. [facility] CBC W/Diff, Automatedon 06-08 Absolute Lymph 0.99 X10 3/uL Normal 0.83-4.51 [facility] Comment on above: Performed By: #### L 501.2300, L501.5200, L500.2500, L100.0100 #### [facility] [address] [place], [address] Absolute Neut 16.5 X10 3/uL High 2.0-7.7 [facility] Comment on above: Performed By: #### L 501.2300, L501.5200, L500.2500, L100.0100 #### [facility] [address] [place], [address] Basophils/100 WBC (Bld) 0.2 % Normal 0-1 [facility] Comment on above: Performed By: #### L 501.2300, L501.5200, L500.2500, L100.0100 #### [facility] [address] [place], [address] Eosinophils/100 WBC (Bld) 0.0 % Normal 0-5 [facility] Comment on above: Performed By: #### L 501.2300, L501.5200, L500.2500, L100.0100 #### [facility] [address] [place], [address] Erythrocyte distribution width (RBC) [Ratio] 13.5 % Normal 11.6-14.6 [facility] Comment on above: Performed By: #### L 501.2300, L501.5200, L500.2500, L100.0100 #### [facility] [address] [place], [address] Hematocrit (Bld) [Volume fraction] 35.7 % Low 37-47 [facility] Comment on above: Performed By: #### L 501.2300, L501.5200, L500.2500, L100.0100 #### [facility] [address] [place], [address] Hemoglobin (Bld) [Mass/Vol] 11.9 g/dL Low 12.0-15.0 [facility] Comment on above: Performed By: #### L 501.2300, L501.5200, L500.2500, L100.0100 #### [facility] [address] [place], [address] IG% 0.800 Normal 0.0-0.9 [facility] Comment on above: Result Comment: IG% - Immature Granulocytes (promyelocytes, myelocytes and metamyelocytes) > 1% indicates that a LEFT SHIFT is Present. Performed By: #### L 501.2300, L501.5200, L500.2500, L100.0100 #### [facility] [address] [place], [address] Lymphocytes/100 WBC (Bld) 5.3 % Low 19-41 [facility] Comment on above: Performed By: #### L 501.2300, L501.5200, L500.2500, L100.0100 #### [facility] [address] [place], [address] MCH (RBC) [Entitic mass] 29.4 pg Normal 27.0-32.0 [facility] Comment on above: Performed By: #### L 501.2300, L501.5200, L500.2500, L100.0100 #### [facility] [address] [place], [address] MCHC (RBC) [Mass/Vol] 33.3 g/dL Normal 32-36 [facility] Comment on above: Performed By: #### L 501.2300, L501.5200, L500.2500, L100.0100 #### [facility] [address] [place], [address] MCV (RBC) [Entitic vol] 88.1 fL Normal 81-99 [facility] Comment on above: Performed By: #### L 501.2300, L501.5200, L500.2500, L100.0100 #### [facility] [address] [place], [address] Monocytes/100 WBC (Bld) 5.5 % Normal 0-10 [facility] Comment on above: Performed By: #### L 501.2300, L501.5200, L500.2500, L100.0100 #### [facility] [address] [place], [address] Neutrophils/100 WBC (Bld) 88.2 % High 47-70 [facility] Comment on above: Performed By: #### L 501.2300, L501.5200, L500.2500, L100.0100 #### [facility] [address] [place], [address] Nucleated RBC (Bld) [#/Vol] 0 10*3/uL Normal 0-5 [facility] Comment on above: Performed By: #### L 501.2300, L501.5200, L500.2500, L100.0100 #### [facility] [address] [place] [facility], [address] Platelet mean volume (Bld) [Entitic vol] 10.4 fL Normal 6.2-12.0 [facility] Comment on above: Performed By: #### L 501.2300, L501.5200, L500.2500, L100.0100 #### [facility] [address] [place], [address] Platelets (Bld) [#/Vol] 479 10*3/uL High 150-450 [facility] Comment on above: Performed By: #### L 501.2300, L501.5200, L500.2500, L100.0100 #### [facility] [address] [place], [address] RBC (Bld) [#/Vol] 4.05 10*6/uL Low 4.2-5.4 [facility] Comment on above: Performed By: #### L 501.2300, L501.5200, L500.2500, L100.0100 #### [facility] [address] [place], [address] RDW SD 43.8 fl Normal 35.1-43.9 [facility] Comment on above: Performed By: #### L 501.2300, L501.5200, L500.2500, L100.0100 #### [facility] [address] [place], [address] WBC (Bld) [#/Vol] 18.7 10*3/uL High 4.4-11.0 [facility] Comment on above: Performed By: #### L 501.2300, L501.5200, L500.2500, L100.0100 #### [facility] [address] [place], [address] Carbon dioxide, total [Moles /volume] in Central venous bloodOrdered By: Jordy Mireles on 06-26-2024 CO2 [Moles/Vol] 25.9 mmol/L 21.0-32.0 [facility] Chest PA and Lateralon 06-26 Chest PA and Lateral [facility] Imaging Services [address], [place] [id number] [phone] PA and Lateral MR#: [id number] Acct: [id number] Name: MONISHA FITZPATRICK Rep #: [id number] : 1945 F 78 From: Mathew Muse MD PCP: Dr. Adrian Hamm MD Status: REG ER Study: Chest PA and Lateral Date of Exam: 06/26/24 Exam# [id number] Ordering Dr: Jordy Mireles DO PROCEDURE: CHEST PA AND LATERAL 06/26/2024 REASON FOR EXAM: N/V Nausea. Vomiting. TECHNIQUE: Frontal and lateral views of the chest. COMPARISON: None FINDINGS: Cardiac silhouette upper limits of normal for size. No infiltrates. No pleural effusions. No pneumothorax. Mild thoracic spinal dextroscoliosis. No acute osseous abnormality seen. RAD/Chest PA and Lateral IMPRESSION: No radiographic evidence of active cardiopulmonary disease. Reading Location: [facility] CC: Dr. Adrian Hamm MD; Dr. Jordy Mireles DO Facilities Custodian: Signed Normal [facility] Chest without Contraston Chest without Contrast [facility] Imaging Services [address], [place] [address] Chest without Contrast MR#: [id number] Acct: [id number] Name: MONISHA FITZPATRICK Rep #: [id number] : 1945 F 78 From: Alejandro Yeager MD PCP: Dr. Adrian Hamm MD Status: ADM IN Study: Chest without Contrast Date of Exam: 06/26/24 Exam# [id number] Ordering Dr: Jordy Mireles DO PROCEDURE: CHEST WITHOUT CONTRAST 06/26/2024 REASON FOR EXAM: ELEVATED WBC UNKOWN ETIOLOGY TECHNIQUE: Chest CT without contrast. Coronal and Sagittal reconstruction series were provided. One or more dose reduction techniques were used (e.g., Automated exposure control, adjustment of the mA and/or kV according to patient size, use of iterative reconstruction technique RADIATION DOSE SUMMARY: CTDlvol: 6.3 mGy DLP: 228 mGycm COMPARISON: Same day chest radiograph and CT abdomen/pelvis FINDINGS: Lymph nodes: No significant lymphadenopathy. Heart and Vasculature: Mildly enlarged. Mild multivessel coronary calcifications, in addition to aortic valvular calcification. The ascending thoracic aorta measures 3.9 cm in diameter. Moderate aortic atherosclerosis. Lungs and Airways: Central airways are predominantly clear. Mild biapical scarring. No focal consolidation. There are few tiny pulmonary nodules, for example in the left upper lobe measuring 4 mm (series 4 image 70). Pleura: No pleural effusion. Upper Abdomen: See same day CT abdomen and pelvis for detailed report. Bones: Degenerative changes and rightward curvature of the thoracic spine. CT/Chest without Contrast IMPRESSION: 1. No acute cardiopulmonary abnormality. 2. Scattered pulmonary nodules measuring up to 4 mm in size. Consider CT chest in 12 months if patient is high-risk per Fleischner society guidelines. 3. Ascending thoracic aorta measures 3.9 cm in diameter. 4. Mild cardiomegaly. Reading Location: [id number] CC: Dr. Adrian Hamm MD; Dr. Jordy Mireles DO Facilities Custodian: Signed Normal [facility] Chloride assayOrdered By: Stoney Mireles on 06-26-2024 Chloride [Moles/Vol] 94 mmol/L Low 98-108 [facility] Comprehensive Metabolic Prof ilon 06-26-2024 Albumin [Mass/Vol] 3.9 g/dL Normal 3.4-4.8 [facility] Comment on above: Performed By: #### L 501.080 #### [facility] [address] [place], [place], [address] Albumin/Globulin [Mass ratio] 1.2 {ratio} Normal 0.9-2.4 [facility] Comment on above: Performed By: #### L 501.080 #### [facility] [address] [place], [address] ALK PHOS 92 U/L Normal 35-104 [facility] Comment on above: Performed By: #### L 501.080 #### [facility] [address] [place], [address] ALT [Catalytic activity/Vol] 16 U/L Normal <=34 [facility] Comment on above: Performed By: #### L 501.080 #### [facility] [address] [place], [address] AST [Catalytic activity/Vol] 32 U/L Normal <=31 [facility] Comment on above: Performed By: #### L 501.080 #### [facility] [address] [place], [address] Bilirubin [Mass/Vol] 0.79 mg/dL Normal 0.00-1.30 [facility] Comment on above: Performed By: #### L 501.080 #### [facility] [address] [place], [address] BUN/CRE 37.6 RATIO High 10-20 [facility] Comment on above: Performed By: #### L 501.080 #### [facility] [address] [place], [address] Calcium [Mass/Vol] 11.7 mg/dL High 7.6-11.0 [facility] Comment on above: Performed By: #### L 501.080 #### [facility] [address] [place], [address] Chloride [Moles/Vol] 94 mmol/L Low 98-108 [facility] Comment on above: Performed By: #### L 501.080 #### [facility] [address] [place], [address] CO2 [Moles/Vol] 25.9 mmol/L Normal 21.0-32.0 [facility] Comment on above: Performed By: #### L 501.080 #### [facility] [address] [place], [address] Creatinine [Mass/Vol] 1.47 mg/dL High 0.70-1.20 [facility] Comment on above: Performed By: #### L 501.080 #### [facility] [address] [place], [address] ECRCL 28.38 ml/min Low 50-250 [facility] Comment on above: Performed By: #### L 501.080 #### [facility] [address] [place], [address] GAP 14 Normal 5-15 [facility] Comment on above: Performed By: #### L 501.080 #### [facility] [address] [place], [address] GFR/1.73 sq M.predicted among non-blacks MDRD (S/P/Bld) [Vol rate/Area] 36 mL/min/{1.73_m2} Low >60 [facility] Comment on above: Result Comment: mL/m in/1.73m2 CKD-EPI Creatinine Equation (2020) Performed By: #### L 501.080 #### [facility] [address] [place], [address] Globulin (S) [Mass/Vol] 3.4 g/dL Normal 2.2-4.2 [facility] Comment on above: Performed By: #### L 501.080 #### [facility] [address] [place], [address] Glucose [Mass/Vol] 187 mg/dL High 70-99 [facility] Comment on above: Performed By: #### L 501.080 #### [facility] [address] [place], [address] Potassium [Moles/Vol] 3.4 mmol/L Normal 3.3-5.1 [facility] Comment on above: Performed By: #### L 501.080 #### [facility] [address] [place], [address] Sodium [Moles/Vol] 134 mmol/L Normal 133-145 [facility] Comment on above: Performed By: #### L 501.080 #### [facility] [address] [place], [address] T PROT 7.4 g/dL Normal 5.9-8.4 [facility] Comment on above: Performed By: #### L 501.080 #### [facility] [address] [place], [address] Urea nitrogen [Mass/Vol] 55 mg/dL High 4-19 [facility] Comment on above: Performed By: #### L 501.080 #### [facility] [address] [place], [address] Echo, Limited Studyon 2024 Echo, Limited Study [facility] [address] [place] [address] Echo, Limited Study 06/27/24 0829 MR#: [id number] Acct: [id number] Name: MONISHA FITZPATRICK Rep #: [id number] : 1945 78 From: Andrey Lord MD Attending Dr: Dr. Yumiko Grande, DO Status: ADM I N Ordering Dr: Velma Vazquez MD Date: 06/26/24 Location: U Sex: F C Admitted: 06/26/24 Reason For Study Reason For Study: ATRIAL FIBRILLATION Procedure This was a limited 2D transthoracic echocardiogram. The study was technically difficult. Exam performed portable in patient room. Left Ventricle Normal LV size. Left ventricular systolic function is normal. The left ventricular ejection fraction is 70 %. No regional wall motion abnormalities noted. Right Ventricle Normal RV size. Normal systolic function. Atria Normal left atrium. Normal right atrium. Mitral Valve There is mild mitral annular calcification. Tricuspid Valve Normal tricuspid valve. Mild (1+) tricuspid valve insufficiency. Pulmonary artery systolic pressure is 34 mmHg. Aortic Valve Trisinus/trileaflet aortic valve. Mild focal aortic valve calcification. Pulmonic Valve Normal pulmonic valve. Great Vessels Normal aortic root. Pericardium/Pleural No pericardial effusion. MMode/2D Measurements Calculations LVIDd: 3.3 cm IVSd: 1.1 cm LVOT diam: 1.9 cm LVIDs: 1.8 cm LVPWd: 1.1 cm LVOT area: 2.7 cm2 RVDd: 4.0 cm FS: 45.3 % LAV(MOD-bp): 28.0 ml LVAd ap4: 21.1 cm2 LVAd ap2: 19.2 cm2 LAV(MOD-bp) Indexed: 16.4 ml/m2 LVLd ap4: 7.9 cm LVLd ap2: 7.3 cm LAV(MOD-sp2): 33.0 ml EDV(MOD-sp4): 47.7 ml EDV(MOD-sp2): 41.3 ml LAV(MOD-sp4): 24.1 ml EDV(sp4-el): 47.9 ml EDV(sp2-el): 42.7 ml LVAs ap4: 10.3 cm2 LVAs ap2: 8.5 cm2 LVLs ap4: 6.5 cm LVLs ap2: 6.0 cm ESV(MOD-sp4): 14.2 ml ESV(MOD-sp2): 10.3 ml ESV(sp4-el): 13.9 ml ESV(sp2-el): 10.2 ml EF(MOD-sp4): 70.3 % EF(MOD-sp2): 75.1 % EF(sp4-el): 70.9 % SV(MOD-sp4): 33.5 ml SV(MOD-sp2): 31.0 ml SV(sp4-el): 34.0 ml SI(MOD-sp4): 19.6 ml/m2 SI(MOD-sp2): 18.1 ml/m2 Ao sinus diam: 2.9 cm LA A4 area: 11.3 cm2 LA dimension(2D): 2.6 cm RA A4 area: 9.4 cm2 Doppler Measurements Calculations MV V2 max: 133.9 cm/sec Ao V2 max: 196.0 cm/sec LV V1 max: 91.5 cm/sec MV max P.2 mmHg Ao max P.4 mmHg LV V1 max P.3 mmHg MV V2 mean: 100.4 cm/sec SHARIFA(V,D): 1.3 cm2 MV mean P.2 mmHg MV V2 VTI: 29.2 cm TR max zahra: 272.7 cm/sec TR max P.7 mmHg ECHO/Echo, Limited Study Interpretation Summary Normal LV size. Left ventricular systolic function is normal. The left ventricular ejection fraction is 70 %. Mild focal aortic valve calcification. Ordering Physician: Velma Vazquez Performed By: Roxie Larson RDCS 06/27/24 1603 Date Andrey Lord MD CC: Dr. Adrian Hamm MD; Dr. Yumiko Grande DO; Dr. Velma Vazquez MD Date Dictated: 06/27/2429 Date Transcribed: 06/27/24 160 Facilities Custodian: Signed Normal [facility] Emergency Department Summary on 06-26-2024 Emergency Department Summary [facility] Medical Records Department [address] [place] [address] Emergency Department Summary 06/26/24 MR#: [id number] Acct: [id number] Name: MONISHA FITZPATRICK Rep #: [id number] : 1945 78 From: Jordy Mireles DO PCP: Dr. Adrian Hamm MD Status:[facility] ER Location: ED HPI History of Present Illness Chief Complaint: Nausea/Vomiting Narrative Narrative: Patient is a 78-year-old female with past medical history of venous insufficiency, hyperlipidemia, GERD, diabetes who presented to the emergency department the chief complaint of abdominal pain. According to the patient's family member at bedside for the last several weeks to months she has had off and on appetite. He states that some days she will and eat other days she will not. He states that recently she was given a bowel prep. She states that she thought she cleaned out with this as she was having good bowel movements. He states that recently again she developed nausea and loss of appetite with abdominal pain therefore he brought her here for further evaluation management. [facility] Medical History Disorder of bone, unspecified Unintentional weight loss Fatigue White coat syndrome with hypertension Venous (peripheral) insufficiency Vasomotor rhinitis Unspecified essential hypertension Unspecified constipation Retinal hemorrhage Retinal edema Renal cyst Nonproliferative diabetic retinopathy of both eyes Laryngospasm Internal hemorrhoids without mention of complication Hyperlipidemia LDL goal <100 Hearing aid worn External hemorrhoids without mention of complication Esophageal reflux disease Diabetes mellitus with macular edema, both eyes Arthritis of both knees Aortic ejection murmur Home Medications ???Medication ???Instructions ???Recorded ???Last Taken ???Type aflibercept 2 mg/0.05 mL 2 mg intravitreal ONCE 05/17/24 Un known History intravitreal solution for injection albuterol sulfate 90 mcg/actuation 2 puff inhalation Q4-6H PRN 11/02 Unknown History aerosol inhaler atorvastatin 20 mg tablet 20 mg PO QHS 05/17/24 Unknown Hist ory calcium carbonate-vitamin tab PO BID 05/17/24 Unknown Histor y D2-minerals tablet docusate sodium 100 mg capsule 100 mg PO BID 05/17/24 Unknown His tory epinephrine 0.3 mg/0.3 mL 0.3 mg IM Q5-15M PRN 05/17/24 Unkn own History injection, auto-injector fluticasone propionate 50 2 spray intranasal QDAY 05/17/24 U nknown History mcg/actuation nasal spray,suspension (Allergy Relief (fluticasone)) losartan 100 mg tablet 100 mg PO QDAY 05/17/24 Unknown Hi story metformin 500 mg tablet 1,000 mg PO BID 05/17/24 Unknown H istory psyllium seed (sugar) oral powder 1 tbsp PO BID 05/17/24 Unknown Hi story (Fiber Therapy (psyllium seed-sucrose) oral powder) metoprolol succinate 50 mg 50 mg PO QDAY #90 tabs 05/25/24 Un known Rx tablet,extended release 24 hr amlodipine 2.5 mg tablet 2.5 mg PO QDAY #30 tabs 06/06/24 U nknown Rx hydrochlorothiazide 12.5 mg capsule 12.5 mg PO DAILY 06/26/24 Unkno wn History metoprolol succinate 25 mg 25 mg PO DAILY 06/26/24 Unknown Hi story tablet,extended release 24 hr ondansetron HCl 4 mg tablet 4 mg PO Q8H PRN PRN nausea/vomitin g 06/26/24 Unknown History Allergy/AdvReac Type Severity Reaction Status Date / Time lisinopril Allergy Severe Angioedema Verified 06/26/24 11:04 penicillin G Allergy Unknown PT UNSURE Verified 06/26/24 11:04 OF REACTION Sulfa (Sulfonamide Allergy Unknown PT UNSURE Verified 06/26/24 11:04 Antibiotics) OF REACTION doxycycline AdvReac Intermediate Nausea Verified 06/26/24 11:04 prednisone AdvReac Mild Other Verified 06/26/24 11:04 Family History Mother Stomach ulcer Father CAD (coronary artery disease) Emphysema, unspecified Grandmother Diabetes Aunt Diabetes Uncle Diabetes Surgical History History of surgical procedure on eye proper using laser History of tonsillectomy History of colonoscopy History of cataract extraction Social History Smoking Status: Never smoker alcohol intake: never substance use type: does not use ROS ROS ED ROS Narrative Constitutional: Denies fevers, chills, headaches, lightness, dizziness Eyes: Denies change in vision double vision blurry vision Cardiovascular: Denies chest pain Respiratory: Denies shortness of breath Abdomen: Complains of abdominal pain and nausea as noted above : Denies any urinary symptoms Neurological: Denies numbness, weakness, tingling Musculoskeletal: Denies back pain Skin: Denies any rashes or lesions EXAM (more content not included)... Normal [facility] Eosinophil percentageOrdered By: Jordy Mireles on 06-26-2024 Eosinophils/100 WBC (Bld) 0.0 % 0-5 [facility] Erythrocyte distribution wid th ratioOrdered By: Jordy Mireles on 06-26-2024 Erythrocyte distribution width (RBC) [Ratio] 13.5 % 11.6-14.6 [facility] Erythrocyte distribution wid th standard deviationOrdered By: Jordy Mireles on 06-26-2024 Erythrocyte distribution width (RBC) [Ratio] 43.8 fl 35.1-43.9 [facility] Glomerular filtration rate ( GFR) estimation/1.73 sq m using serum, plasma, or whole bOrdered By: Jordy Mireles on 06-26-2024 GFR/1.73 sq M.predicted among non-blacks MDRD (S/P/Bld) [Vol rate/Area] 36 mL/min/{1.73_m2} Low >60 [facility] Comment on above: mL/min/1.73m2 CKD-EP I Creatinine Equation (2020) H AND P Exam - [facility] 06-26-2024 H&P Exam - Hospitalist [facility] Medical Records Department [address] [place] [address] H P Exam - Hospitalist 06/26/24 1755 MR#: [id number] Acct: [id number] Name: MONISHA FITZPATRICK Rep #: [id number] : 1945 78 From: Velma Vazquez MD PCP: Dr. Adrian Hamm MD Status:ADM IN Location: [place] [address] HPI - General General Date of Admission: 06/26/24 Date of Service: 06/26/24 Chief Complaint: N/V HPI Narrative MONISHA FITZPATRICK, is a 78-year-old female with history of hypertension and diabetes who presented to [facility] ED 06/26/2024 with poor appetite and nausea and vomiting. Family reported she had had problems with somewhat poor appetite over the past weeks to months, recently was given a bowel prep and reports she seemed cleaned out was having good bowel movements but recently again she developed nausea and loss of appetite so she came in for further evaluation management. In the ED temperature 96.8, initial vital signs seem to been incorrect as repeat vital signs shortly after the initial set show a heart rate of 101 with a blood pressure 123/66, respiratory rate 19 and pulse ox 97% on room air. CBC did note white blood cell count of 18.7, hemoglobin 11.9 and platelet count of 479. BUN of 55 with a creatinine of 1.47 with no baseline available and a calcium of 11.7 again with no other available values. Lipase of 29 and lactic found to be 3.6 with a troponin of 87 which subsequently down trended to 72 and lactic acid resolved with IV fluids to 1.3. CT abd/pelvis was ordered and showed concern for fecal impaction and queried right femoral aneurysm. ED physician attempted to manually disimpact patient however there was soft stool in vault. Hospitalist contacted for admission due to all of the above. Patient evaluated with sons at bedside, patient has been having poor p.o., fatigue, nausea and vomiting over the past 3 months intermittently but worse over the past 1 week. Couple of days ago she was given a bowel prep but son reports he thinks that this was incomplete and patient has continued a problem since then. Patient adamantly denying abdominal pain at time my exam. Patient denies any fevers or chills, no cough or shortness of breath, denies any burning on urination. No focal numbness or weakness. Of note when I evaluated patient in room her upper lip appeared to be somewhat swollen. Son's report it has been like this for the past couple of hours with some addition of facial flushing and that was not like this earlier today. Patient said she thinks it is just because her lips are dry but it seems out of proportion to that. [facility] Medical History Disorder of bone, unspecified Unintentional weight loss Fatigue White coat syndrome with hypertension Venous (peripheral) insufficiency Vasomotor rhinitis Unspecified essential hypertension Unspecified constipation Retinal hemorrhage Retinal edema Renal cyst Nonproliferative diabetic retinopathy of both eyes Laryngospasm Internal hemorrhoids without mention of complication Hyperlipidemia LDL goal <100 Hearing aid worn External hemorrhoids without mention of complication Esophageal reflux disease Diabetes mellitus with macular edema, both eyes Arthritis of both knees Aortic ejection murmur Home Medications ???Medication ???Instructions ???Recorded ???Last Taken ???Type aflibercept 2 mg/0.05 mL 2 mg intravitreal ONCE 05/17/24 Un known History intravitreal solution for injection albuterol sulfate 90 mcg/actuation 2 puff inhalation Q4-6H PRN 04/11/02 Unknown History aerosol inhaler atorvastatin 20 mg tablet 20 mg PO QHS 05/17/24 Unknown Hist ory calcium carbonate-vitamin tab PO BID 05/17/24 Unknown Histor y D2-minerals tablet docusate sodium 100 mg capsule 100 mg PO BID 05/17/24 Unknown His tory epinephrine 0.3 mg/0.3 mL 0.3 mg IM Q5-15M PRN 05/17/24 Unkn own History injection, auto-injector fluticasone propionate 50 2 spray intranasal QDAY 05/17/24 U nknown History mcg/actuation nasal spray,suspension (Allergy Relief (fluticasone)) losartan 100 mg tablet 100 mg PO QDAY 05/17/24 Unknown Hi story metformin 500 mg tablet 1,000 mg PO BID 05/17/24 Unknown H istory psyllium seed (sugar) oral powder 1 tbsp PO BID 05/17/24 Unknown Hi story (Fiber Therapy (psyllium seed-sucrose) oral powder) metoprolol succinate 50 mg 50 mg PO QDAY #90 tabs 05/25/24 Un known Rx tablet,extended release 24 hr amlodipine 2.5 mg tablet 2.5 mg PO QDAY #30 tabs 06/06/24 U nknown Rx hydrochlorothiazide 12.5 mg capsule 12.5 mg PO DAILY 06/26/24 Unkno wn History metoprolol succinate 25 mg 25 mg PO DAILY 06/26/24 Unknown Hi story tablet,extended release 24 hr ondansetron HCl 4 mg tablet 4 mg PO Q8H PRN PRN nausea/vomitin g 06/26/24 U (more content not included)... Normal [facility] Hematocrit Auto (Bld) [Volum e fraction]Ordered By: Jordy Mireles on 06-26-2024 Hematocrit (Bld) [Volume fraction] 35.7 % Low 37-47 [facility] Hemoglobin measurementOrdere d By: Jordy Mireles on 06-26-2024 Hemoglobin (Bld) [Mass/Vol] 11.9 g/dL Low 12.0-15.0 [facility] Hyaline casts LM.LPF (Urine sed) [#/Area]Ordered By: Jordy Mireles on 06-26-2024 Hyaline casts (Urine sed) [#/Area] 0 /[LPF] 0-5 [facility] Immature granulocytes/100 WB C Auto (Bld)Ordered By: Jordy Mireles on 06-26-2024 Immature granulocytes/100 WBC (Bld) 0.800 % 0.0-0.9 [facility] Comment on above: IG% - Immature Granu locytes (promyelocytes, myelocytes and metamyelocytes) > 1% indicates that a LEFT SHIFT is Present. Influenza virus A and B and SARS-CoV-2 (COVID-19) and Respiratory syncytial virus RNAOrdered By: Jordy Mireles on 06-26-2024 SARS-CoV-2 (COVID-19) RNA JOAN+probe Ql (Unsp spec) [facility] normalized rat io (INR) calculationOrdered By: Jordy Garciaer on 06-26-2024 INR Coag (Bld) [Relative time] 1.0 {INR} [facility] Ketones Test strip Ql (U)Ord ered By: Jordy Mireles on 06-26-2024 Ketones Ql (U) Negative Negative [facility] L499.0042on 06-26-2024 Trop T High Sen 78 ng/L Invalid Interpretation Code <=14 [facility] Comment on above: Result Comment: Crit ical Result(s) Called at 1409: by: JOCELYN OHARA TO ALEXANDRADRUMINGO. ??Results read back by same. Performed By: #### L 499.0042 #### [facility] [address] [place], [address] L499.0043on 06-26-2024 Trop T High Sen 72 ng/L Invalid Interpretation Code <=14 [facility] Comment on above: Result Comment: Crit ical Result(s) Called at: 1641 by: ALYSA MCINTOSH TO DONAL FLOOD??Results read back by same. Performed By: #### L 499.0043 #### [facility] [address] [place], [address] L501.2276on 06-26-2024 Ionized Calcium 1.40 mmol/L High 1.09-1.30 [facility] Comment on above: Performed By: #### L 501.2300, L501.5200, L500.2500, L100.0100 #### [facility] [address] [place], [address] L501.4021on 06-26-2024 Trop T High Sen 87 ng/L Invalid Interpretation Code <=14 [facility] Comment on above: Result Comment: Crit ical Result(s) Called to Sherry SINGH (ER): by: Caryn??Results read back by same. Performed By: #### L 501.2300, L501.5200, L500.2500, L100.0100 #### [facility] [address] [place], [address] L509.7001on 06-26-2024 Procalcitonin 0.16 ng/mL High <=0.10 [facility] Comment on above: Order Comment: Comme nts: may add to ED labs Result Comment: Inte rpretation: <0.10-0.25 ng/mL: Antibiotic therapy discouraged. Bacterial infection unlikely. 0.25-0.50 ng/mL: Antibiotic therapy encouraged. Bacterial infection possible. >0.50 ng/mL: Antibiotic therapy strongly encouraged. Suggestive of presence of bacterial infection. PCT should always be interpreted in the clinical context of the patient. Therefore, clinicians should use the PCT results in conjunction with other laboratory findings and clinical signs of the patient. Performed By: #### L 501.2300, L501.5200, L500.2500, L100.0100 #### [facility] [address] [place], [address] Laboratory - Chemistry and C hemistry - challengeOrdered By: Jordy Mireles on 06-26-2024 AST [Catalytic activity/Vol] 32 U/L <32 [facility] Lactic Acidon 06-26-2024 Lactate [Moles/Vol] 1.3 mmol/L Normal 0.0-2.0 [facility] Comment on above: Performed By: #### L 501.2300, L501.5200, L500.2500, L100.0100 #### [facility] [address] [place], [address] Lactate [Moles/Vol] 3.6 mmol/L Invalid Interpretation Code 0.0-2.0 [facility] Comment on above: Order Comment: Y Result Comment: Crit ical Result(s) Called at 1226: by JOCELYN OHARA TO ALEXANDRABAYLOR [facility]. Results read back by same. Performed By: #### L 501.080 #### [facility] [address] [place], [address] Lactic acid measurementOrder ed By: Jordy Mireles on 06-26-2024 Lactate [Moles/Vol] 1.3 mmol/L 0.0-2.0 [facility] Lipaseon 06-26-2024 Lipase [Catalytic activity/Vol] 29 U/L Normal 13-75 [facility] Comment on above: Result Comment: Plea se note: LIPASE revised reference range effective 22. New Lipase methodology. Expected to produce lower values than the previous assay method. NEW Reference Range: 13 - 75 U/L Performed By: #### L 501.080 #### [facility] [address] [place], [address] Lipase measurementOrdered By : Jordy Mireles on 06-26-2024 Lipase [Catalytic activity/Vol] 29 U/L 13-75 [facility] Comment on above: Please note:LIPASE r evised reference range effective 22. New Lipase methodology. Expected to produce lower values than the previous assay method. NEW Reference Range: 13 - 75 U/L M100.678on 06-26-2024 M100.678 SARS-CoV-2 (COVID 19 ) Negative INFLUENZA A Negative INFLUENZA B Negative RSV PCR Negative Normal [facility] Comment on above: Performed By: #### L 501.2300, L501.5200, L500.2500, L100.0100 #### [facility] [address] [place], [place], [address] MCV (mean corpuscular volume ) determinationOrdered By: Jordy Mireles on 06-26-2024 MCV (RBC) [Entitic vol] 88.1 fL 81-99 [facility] Magnesiumon 06-26-2024 Magnesium [Mass/Vol] 2.3 mg/dL High 1.5-2.2 [facility] Comment on above: Order Comment: Comme nts: may add to ED labs Performed By: #### L 501.2300, L501.5200, L500.2500, L100.0100 #### [facility] [address] [place], [place], [address] Mean corpuscular hemoglobin (MCH) determinationOrdered By: Jordy Mireles on 06-26-2024 MCH (RBC) [Entitic mass] 29.4 pg 27.0-32.0 [facility] Mean corpuscular hemoglobin concentration (MCHC) determinationOrdered By: Jordy Mireles on 06-26-2024 MCHC (RBC) [Mass/Vol] 33.3 g/dL 32-36 [facility] Mean platelet volume determi nationOrdered By: Jordy Mireles on 06-26-2024 Platelet mean volume (Bld) [Entitic vol] 10.4 fL 6.2-12.0 [facility] Microscopic analysis of urin e for red blood cells (RBC)Ordered By: Jordy Mireles on 06-26-2024 Microscopic analysis of urine for red blood cells (RBC) 0 SEEN /hpf 0-5 [facility] Monocyte percentageOrdered B y: Jordy Mireles on 06-26-2024 Monocytes/100 WBC (Bld) 5.5 % 0-10 [facility] Mucus LM Ql (Urine sed)Order ed By: Jordy Mireles on 06-26-2024 Mucus Ql (Urine sed) 0 SEEN /hpf [facility] Neutrophil percentageOrdered By: Jordy Mireles on 06-26-2024 Neutrophils/100 WBC (Bld) 88.2 % High 47-70 [facility] Nitrite Test strip Ql (U)Ord ered By: Jordy Mireles on 06-26-2024 Nitrite Ql (U) Negative Negative [facility] Nucleated red blood cell per centageOrdered By: Jordy Mireles on 06-26-2024 Nucleated RBC/100 WBC (Bld) [Ratio] 0 % 0-5 [facility] PTHINon 06-26-2024 PTH 15 pg/mL Normal 11-61 [facility] Comment on above: Performed By: #### L 501.2300, L501.5200, L500.2500, L100.0100 #### [facility] [address] [place], [address] Partial Thromboplast Timeon 06-26-2024 aPTT Coag (Bld) [Time] 23.8 s Low 24.1-36.2 [facility] Comment on above: Performed By: #### L 501.2300, L501.5200, L500.2500, L100.0100 #### [facility] [address] [place], [address] Phosphoruson 06-26-2024 Phosphate [Mass/Vol] 1.2 mg/dL Invalid Interpretation Code 2.7-4.5 [facility] Comment on above: Performed By: #### L 501.2300, L501.5200, L500.2500, L100.0100 #### [facility] [address] [place], [address] Platelet countOrdered By: Stoney Mireles on 06-26-2024 Platelets (Bld) [#/Vol] 479 10*3/uL High 150-450 [facility] Potassium measurement (mass/ volume)Ordered By: Jordy Mireles on 06-26-2024 Potassium (Unsp spec) [Mass/Vol] 3.4 mmol/L 3.3-5.1 [facility] Procalcitonin [Mass/volume] in Serum or Plasma by ImmunoassayOrdered By: Velma Vazquez on 06-26-2024 Procalcitonin IA [Mass/Vol] 0.16 ng/mL High <0.11 [facility] Comment on above: Interpretation:<0.10 -0.25 ng/mL: Antibiotic therapy discouraged. Bacterial infection unlikely.0.25-0.50 ng/mL: Antibiotic therapy encouraged. Bacterial infection possible.>0.50 ng/mL: Antibiotic therapy strongly encouraged. Suggestive of presence of bacterial infection.PCT should always be interpreted in the clinical context of the patient. Therefore, clinicians should use the PCT results in conjunction with other laboratory findings and clinical signs of the patient. Protein Test strip Ql (U)Ord ered By: Jordy Mireles on 06-26-2024 Protein Ql (U) 30 mg/dl High Negative [facility] Prothrombin Time w/INRon INR Coag (PPP) [Relative time] 1.0 {INR} Normal [facility] Comment on above: Performed By: #### L 501.2300, L501.5200, L500.2500, L100.0100 #### [facility] [address] [place], [address] PT Coag (PPP) [Time] 13.5 s Normal 11.7-14.9 [facility] Comment on above: Performed By: #### L 501.2300, L501.5200, L500.2500, L100.0100 #### [facility] [address] [place], [address] Prothrombin timeOrdered By: Jordy Mireles on 06-26-2024 PT Coag (PPP) [Time] 13.5 s 11.7-14.9 [facility] RBC Auto (Bld) [#/Vol]Ordere d By: Jordy Mireles on 06-26-2024 RBC (Bld) [#/Vol] 4.05 10*6/uL Low 4.2-5.4 [facility] Serum creatinine measurement (mass/volume)Ordered By: Jordy Mireles on 06-26-2024 Creatinine [Mass/Vol] 1.47 mg/dL High 0.70-1.20 [facility] Serum globulin measurementOr dered By: Jordy Mireles on 06-26-2024 Globulin (S) [Mass/Vol] 3.4 g/dL 2.2-4.2 [facility] Serum glucose measurement (m ass/volume)Ordered By: Jordy Mireles on 06-26-2024 Glucose [Mass/Vol] 187 mg/dL High 70-99 [facility] Serum or plasma alanine arce otransferase (ALT) measurementOrdered By: Jordy Mireles on 06-26-2024 ALT [Catalytic activity/Vol] 16 U/L <35 [facility] Serum or plasma albumin cheryl urement (mass/volume)Ordered By: Jordy Mireles on 06-26-2024 Albumin [Mass/Vol] 3.9 g/dL 3.4-4.8 [facility] Serum or plasma albumin/glob ulin mass ratioOrdered By: Jordy Mireles on 06-26-2024 Albumin/Globulin [Mass ratio] 1.2 {ratio} 0.9-2.4 [facility] Serum or plasma alkaline lulu sphatase measurementOrdered By: Jordy Mireles on 06-26-2024 ALP [Catalytic activity/Vol] 92 U/L 35-104 [facility] Serum or plasma calcium cheryl urement (mass/volume)Ordered By: Jordy Mireles on 06-26-2024 Calcium [Mass/Vol] 11.7 mg/dL High 7.6-11.0 [facility] Serum or plasma urea nitroge n measurement (mass/volume)Ordered By: Jordy Mireles on 06-26-2024 Urea nitrogen [Mass/Vol] 55 mg/dL High 4-19 [facility] Sodium levelOrdered By: Yana Mireles on 06-26-2024 Sodium [Moles/Vol] 134 mmol/L 133-145 [facility] Squamous epithelial cells de tection in urine sediment by light microscopyOrdered By: Jordy Mireles on 06-26-2024 Epithelial cells.squamous LM Ql (Urine sed) 0 SEEN /hpf 5-10 [facility] Total proteinOrdered By: Naga Mireles on 06-26-2024 Protein [Mass/Vol] 7.4 g/dL 5.9-8.4 [facility] Troponin T.cardiac [Mass/vol ume] in Serum or Plasma by High sensitivity methodOrdered By: Jordy Mireles on 06-26-2024 Troponin T.cardiac High sensitivity method [Mass/Vol] 72 ng/L High <14 [facility] Comment on above: Critical Result(s) C alled at: 1641 by: ALYSA MCINTOSH TO DONAL FLOOD Results read back by same. Troponin T.cardiac High sensitivity method [Mass/Vol] 78 ng/L High <14 [facility] Comment on above: Critical Result(s) C alled at 1409: by: JOCELYN OHARA TO TORY. Results read back by same. Troponin T.cardiac High sensitivity method [Mass/Vol] 87 ng/L High <14 [facility] Comment on above: Critical Result(s) C alled to Sherry RN (ER): by: Caryn Results read back by same. Urinalysis, Completeon 06-26 CAST,HYALINE 0-5 SEEN Normal 0-5 [facility] Comment on above: Order Comment: COLLE CTOR TO SPECIFY Performed By: #### L 501.2300, L501.5200, L500.2500, L100.0100 #### [facility] [address] [place], [address] BACTERIA 0 SEEN Normal None Seen [facility] Comment on above: Order Comment: COLLE CTOR TO SPECIFY Performed By: #### L 501.2300, L501.5200, L500.2500, L100.0100 #### [facility] [address] [place], [address] EPI,SQUAMOUS 0 SEEN Normal 5-10 [facility] Comment on above: Order Comment: COLLE CTOR TO SPECIFY Performed By: #### L 501.2300, L501.5200, L500.2500, L100.0100 #### [facility] [address] [place], [address] Mucus Ql (Urine sed) 0 SEEN Normal [facility] Comment on above: Order Comment: COLLE CTOR TO SPECIFY Performed By: #### L 501.2300, L501.5200, L500.2500, L100.0100 #### [facility] [address] [place], [address] RBC 0 SEEN Normal 0-5 [facility] Comment on above: Order Comment: COLLE CTOR TO SPECIFY Performed By: #### L 501.2300, L501.5200, L500.2500, L100.0100 #### [facility] [address] [place], [address] WBC 0 SEEN Normal 0-5 [facility] Comment on above: Order Comment: COLLE CTOR TO SPECIFY Performed By: #### L 501.2300, L501.5200, L500.2500, L100.0100 #### [facility] [address] [place], [address] Urine clarityOrdered By: Naga Mireles on 06-26-2024 Clarity (U) Clear Clear [facility] Urine color determinationOrd ered By: Jordy Mireles on 06-26-2024 Color (U) Yellow Yellow [facility] Urine cultureOrdered By: Naga Mireles on 06-26-2024 Bacteria identified Cx Nom (U) Culture exhibits no growth. [facility] Urine glucose detectionOrder ed By: Jordy Mireles on 06-26-2024 Glucose Ql (U) Normal mg/dl Normal [facility] Urine leukocyte esterase det ection by dipstickOrdered By: Jordy Mireles on 06-26-2024 Leukocyte esterase Test strip Ql (U) Negative Negative [facility] Urine pHOrdered By: Jordy grubbs on 06-26-2024 pH (U) 5.0 [pH] 5.0 - 8.0 [facility] Urine sediment bacteria coun t by microscopy (number/high power field)Ordered By: Jordy Mireles on 06-26-2024 Bacteria LM.HPF (Urine sed) [#/Area] 0 /[HPF] None Seen [facility] Urine specific gravity measu rementOrdered By: Jordy Mireles on 06-26-2024 Specific gravity (U) [Rel density] 1.020 1.002-1.030 [facility] Urine urobilinogen measureme ntOrdered By: Jordy Mireles on 06-26-2024 Urobilinogen Ql (U) Normal mg/dl Normal [facility] White blood cell (WBC) count Ordered By: Jordy Mireles on 06-26-2024 WBC (Bld) [#/Vol] 18.7 10*3/uL High 4.4-11.0 [facility] White blood cell countOrdere d By: Jordy Aline on 06-26-2024 White blood cell count 0 SEEN /hpf 0-5 [facility] FITZPATR[facility] ([id number]) 1945 F Date Time Provider Department 06/24/[facility] During your visit today, we recorded the following information about you: Lucia Ambrose, RN 06/24/2024 10:11 AM Signed Pt called in and reports she was just in on 06/21/24 and saw provider about her decreased appetite, N/V, constipation, fatigue, and stomach issues. Pt states she had a normal BM on Wed06/20/24. She reports every day since then she has been having soft small MANDM size BMs and only 2-3 small balls. She was asking what the provider would recommend for constipation. She states that yesterday she threw up her morning medications, she states she threw up x2 yesterday. She said she didn't even know she was going to throw up, and then her morning meds came up. Pt states she also didn't eat much maybe apiece of toast. She drank 3 red solo cups of water which are 19 oz. Pt denies throwing up today, but states her stomach feel empty. She said she took her medication with water and had a piece of toast. Pt states her stomach often feels upset. Pt asking what the provider feels she can do. Please call and advise. I let her know if provider does not get back to her to go to [facility]. SAMANTHA Hewitt Christopher B, MD 06/24/2024 10:52 AM Signed What has she been taking in the last few days for constipation? Any abdominal pain, blood in stool, black stools, fever or chills with her symptoms? Lucia Ambrose RN 06/24/2024 11:04 AM Signed Pt called and is asked about what she takes for constipation. Pt voices understanding. She states she takes Miralax and couldn't remember what else. She is going to call back after she goes to the bathroom. SAMANTHA Hewitt Christopher B, MD 06/24/2024 11:53 AM Signed I will send in rx for Mag citrate solution to take once for constipation. This should cause her to have BM. If not, or if she is having severe symptoms now such as severe abdominal pain, nausea/vomiting, fever/chills I would recommend ER evaluation. If mag citrate works, would have her take Miralax BID and push PO fluids. Call with update on Wednesday. Geraldine Romano LPN 06/24/2024 12:04 PM Signed Attempted to call patient x 2 line busy both x. ASHANTI Easley Amanda, RN 06/26/2024 9:18 AM Signed Pt called and is notified of providers results and instructions. Pt voices understanding. She states her son picked up the Mag Citrate on Sat and she started it at 4 pm and finished it at 6 pm. Pt states she was up most of the night having BMs. Pt was told provider told her to take Miralax BID and push PO fluids. Pt reports she has been having soft BMs, but hasn't been urinating much. Pt states last night when she had a couple sips of water she threw them right back up, she states she knows she hasn't been drinking enough water. I asked her when the last time she urinated was and she said yesterday morning. I told her if she hasn't urinated I that time she is dehydrated and needs to go to the ER, because she needs fluids. Pt is going to have her son take her to [facility] ER. SAMANTHA Hewitt Christopher B, MD 06/26/2024 9:38 AM Signed Agree with ER evaluation for signs of dehydration and oliguria. Allergies As of Date: 06/24/2024 Noted Allergy Reaction LISINOPRIL 02/06/2012 7 - Swelling Comments: angioedema DOXYCYCLINE 05/18/2017 8 - GI Upset Comments: Nausea w/o vomiting, bad taste PENICILLIN G 01/05/2005 PREDNISONE 01/07/2005 Comments: ROMEL SULFA (SULFONAMIDE ANTIBIOTICS) 01/05/2005 Date Reviewed: 06/21/2024 Reviewed by: Geraldine Romano LPN - Fully Assessed Reason for Visit: Patient Update [2664] Patient Question [0037] Primary Visit Diagnosis:Acute constipation [K59.00] Order(s):[] magnesium citrate solutionTake 296 mL by mouth one time only for 1 dose.Disp: 296 mLRfl: 0 Prescriptions as of 06/26/2024 - ondansetron (ZOFRAN) 4 mg tablet Take 1 tablet by mouth every 8 hours as needed for nausea/vomiting. - amLODIPine (NORVASC) 2.5 mg tablet Take 1 tablet by mouth once daily. - metoprolol succinate ER (TOPROL XL) 50 mg 24 hr tablet Take 1 tablet by mouth once daily. - blood sugar diagnostic (ACCU-CHEK FAISAL) test strip Test blood sugar(s) one time daily. Dx: E11.9. Insulin: No - albuterol HFA (VENTOLIN HFA) 90 mcg/actuation inhaler Inhale 2 Puffs as instructed every 4 hours as needed for wheezing/shortness of breath. - losartan (COZAAR) 100 mg tablet Take 1 tablet by mouth once daily. - metFORMIN (GLUCOPHAGE) 500 mg tablet Take 2 tablets by mouth two times a day with meals. . - atorvastatin (LIPITOR) 20 mg tablet Take 1 tablet by mouth daily at bedtime. For cholesterol. - EPINEPHrine (EPIPEN) 0.3 mg/0.3 mL auto-injector 0.3 ml subcutaneously as needed for hypersensitivity reaction - flutic (more content not included)... Normal [facility] CBC W Auto Differential pane l (Bld)on 06-21-2024 Basophils (Bld) [#/Vol] 0.1 10*3/uL [facility] Basophils/100 WBC (Bld) 0.9 % C [facility] Differential cell count method Nom (Bld) Auto [facility] Eosinophils (Bld) [#/Vol] 0.14 10*3/uL [facility] Eosinophils/100 WBC (Bld) 1.2 % [facility] Erythrocyte distribution width (RBC) [Ratio] 13.2 % 11.5 - 15.0 % [facility] Hematocrit (Bld) [Volume fraction] 34.1 % Low 36.0 - 46.0 % [facility] Hemoglobin (Bld) [Mass/Vol] 11.1 g/dL Low 11.5 - 15.5 g/dL [facility] Immature granulocytes (Bld) [#/Vol] 0.05 10*3/uL [facility] Immature granulocytes/100 WBC (Bld) 0.4 % [facility] Interpretation and review of laboratory results Abnormal [facility] Lymphocytes (Bld) [#/Vol] 2.29 10*3/uL [facility] Lymphocytes/100 WBC (Bld) 20.2 % [facility] MCH (RBC) [Entitic mass] 29.6 pg 26.0 - 34.[address] [facility] MCHC (RBC) [Mass/Vol] 32.6 g/dL 30.5 - 36.0 g/dL [facility] MCV (RBC) [Entitic vol] 90.9 fL 80.0 - 100.[address] [facility] Monocytes (Bld) [#/Vol] 0.79 10*3/uL [facility] Monocytes/100 WBC (Bld) 7 % C [facility] Neutrophils (Bld) [#/Vol] 7.94 10*3/uL High [facility] Neutrophils/100 WBC (Bld) 70.3 % [facility] Nucleated RBC (Bld) [#/Vol] [facility] Nucleated RBC/100 WBC (Bld) [Ratio] 0 % /[address] [facility] Platelet mean volume (Bld) [Entitic vol] 10.9 fL 9.0 - 12.[address] [facility] Platelets (Bld) [#/Vol] 401 10*3/uL High [facility] RBC (Bld) [#/Vol] 3.75 10*6/uL Low 3.90 - 5.2 0 m/uL [facility] WBC (Bld) [#/Vol] 11.31 10*3/uL High [facility] Basophils (Bld) [#/Vol] 0.10 10*3/uL Normal <0.11 [facility] Comment on above: Order Comment: Speci men Type: BLOOD SPECIMENOrdering Facility: [facility] Address: [address] [place] [address] Performed By: #### 5 7021-8 ####[facility] LABCLIA [id number] [facility] [address] [place] Basophils/100 WBC (Bld) 0.9 % Normal [facility] Comment on above: Order Comment: Speci men Type: BLOOD SPECIMENOrdering Facility: [facility] Address: [address] [place] [address] Performed By: #### 5 7021-8 ####[facility] LABCLIA [id number] [facility] [address] [place] Differential cell count method Nom (Bld) Auto Normal [facility] Comment on above: Order Comment: Speci men Type: BLOOD SPECIMENOrdering Facility: [facility] Address: [address] [place] [address] Performed By: #### 5 7021-8 ####[facility] LABCLIA [id number] [facility] [place] [address] [place] Eosinophils (Bld) [#/Vol] 0.14 10*3/uL Normal <0.46 [facility] Comment on above: Order Comment: Speci men Type: BLOOD SPECIMENOrdering Facility: [facility] Address: [address] [place] [address] Performed By: #### 5 7021-8 ####[facility] LABCLIA [id number] [facility] [place] [address] [place] Eosinophils/100 WBC (Bld) 1.2 % Normal [facility] Comment on above: Order Comment: Speci men Type: BLOOD SPECIMENOrdering Facility: [facility] Address: [address] [place] [address] Performed By: #### 5 7021-8 ####[facility] LABCLIA [id number] [place] [address] [place] Erythrocyte distribution width (RBC) [Ratio] 13.2 % Normal 11.5-15.0 [facility] Comment on above: Order Comment: Speci men Type: BLOOD SPECIMENOrdering Facility: [facility] Address: [address] [place] [address] Performed By: #### 5 7021-8 ####[facility] LABCLIA [id number] [place] [address] [place] Hematocrit (Bld) [Volume fraction] 34.1 % Low 36.0-46.0 [facility] Comment on above: Order Comment: Speci men Type: BLOOD SPECIMENOrdering Facility: [facility] Address: [address] [place] [address] Performed By: #### 5 7021-8 ####[facility] LABCLIA [id number] [place] [address] [place] Hemoglobin (Bld) [Mass/Vol] 11.1 g/dL Low 11.5-15.5 [facility] Comment on above: Order Comment: Speci men Type: BLOOD SPECIMENOrdering Facility: [facility] Address: [address] [place] [address] Performed By: #### 5 7021-8 ####[facility] LABCLIA [id number] [place] [id number] [place] Immature granulocytes (Bld) [#/Vol] 0.05 10*3/uL Normal <0.10 [facility] Comment on above: Order Comment: Speci men Type: BLOOD SPECIMENOrdering Facility: [facility] Address: [address] [place] [address] Performed By: #### 5 7021-8 ####[facility] LABCLIA [id number] [place] [address] [place] Immature granulocytes/100 WBC (Bld) 0.4 % Normal [facility] Comment on above: Order Comment: Speci men Type: BLOOD SPECIMENOrdering Facility: [facility] Address: [address] [place] [address] Performed By: #### 5 7021-8 ####[facility] LABCLIA [id number] [place] [address] [place] Lymphocytes (Bld) [#/Vol] 2.29 10*3/uL Normal 1.00-4.00 [facility] Comment on above: Order Comment: Speci men Type: BLOOD SPECIMENOrdering Facility: [facility] Address: [address] [place] [address] Performed By: #### 5 7021-8 ####[facility] LABCLIA [id number] [place] [address] [place] Lymphocytes/100 WBC (Bld) 20.2 % Normal [facility] Comment on above: Order Comment: Speci men Type: BLOOD SPECIMENOrdering Facility: [facility] Address: [address] [place] [address] Performed By: #### 5 7021-8 ####[facility] LABIA [id number] [place] [address] [place] MCH (RBC) [Entitic mass] 29.6 pg Normal 26.0-34.0 [facility] Comment on above: Order Comment: Speci men Type: BLOOD SPECIMENOrdering Facility: [facility] Address: [address] [place] [address] Performed By: #### 5 7021-8 ####[facility] LABCLIA [id number] [place] [address] [place] MCHC (RBC) [Mass/Vol] 32.6 g/dL Normal 30.5-36.0 [facility] Comment on above: Order Comment: Speci men Type: BLOOD SPECIMENOrdering Facility: [facility] Address: [address] [place] [address] Performed By: #### 5 7021-8 ####[facility] LABIA [id number] [place] [address] [place] MCV (RBC) [Entitic vol] 90.9 fL Normal 80.0-100.0 C [facility] Comment on above: Order Comment: Speci men Type: BLOOD SPECIMENOrdering Facility: [facility] Address: [address] [place] [address] Performed By: #### 5 7021-8 ####[facility] LABIA [id number] [place] [address] [place] Monocytes (Bld) [#/Vol] 0.79 10*3/uL Normal <0.87 [facility] Comment on above: Order Comment: Speci men Type: BLOOD SPECIMENOrdering Facility: [facility] Address: [address] [place] [address] Performed By: #### 5 7021-8 ####[facility] LABIA [id number] [place] [address] [place] Monocytes/100 WBC (Bld) 7.0 % Normal C [facility] Comment on above: Order Comment: Speci men Type: BLOOD SPECIMENOrdering Facility: [facility] Address: [address] [place] [address] Performed By: #### 5 7021-8 ####[facility] LABCLIA [id number] [place] [address] [place] Neutrophils (Bld) [#/Vol] 7.94 10*3/uL High 1.45-7.50 [facility] Comment on above: Order Comment: Speci men Type: BLOOD SPECIMENOrdering Facility: [facility] Address: [address] [place] [address] Performed By: #### 5 7021-8 ####[facility] LABCLIA [id number] [place] [address] [place] Neutrophils/100 WBC (Bld) 70.3 % Normal [facility] Comment on above: Order Comment: Speci men Type: BLOOD SPECIMENOrdering Facility: [facility] Address: [address] [place] [address] Performed By: #### 5 7021-8 ####[facility] LABCLIA [id number] [address], [place] [address] [place] Nucleated RBC (Bld) [#/Vol] 10*3/uL Normal <0.01 [facility] Comment on above: Order Comment: Speci men Type: BLOOD SPECIMENOrdering Facility: [facility] Address: [address] [place] [address] Performed By: #### 5 7021-8 ####[facility] LABIA [id number] [place] [address] [place] Nucleated RBC/100 WBC (Bld) [Ratio] 0.0 /100 WBC Normal [facility] Comment on above: Order Comment: Speci men Type: BLOOD SPECIMENOrdering Facility: [facility] Address: [address] [place] [address] Performed By: #### 5 7021-8 ####[facility] LABIA [id number] [place] [address] [place] Platelet mean volume (Bld) [Entitic vol] 10.9 fL Normal 9.0-12.7 [facility] Comment on above: Order Comment: Speci men Type: BLOOD SPECIMENOrdering Facility: [facility] Address: [address] [place] [address] Performed By: #### 5 7021-8 ####[facility] LABIA [id number] [place] [address] [place] Platelets (Bld) [#/Vol] 401 10*3/uL High 150-400 [facility] Comment on above: Order Comment: Speci men Type: BLOOD SPECIMENOrdering Facility: [facility] Address: [address] [place] [address] Performed By: #### 5 7021-8 ####[facility] LABCLIA [id number] [place] [address] [place] RBC (Bld) [#/Vol] 3.75 10*6/uL Low 3.90-5.20 [facility] Comment on above: Order Comment: Speci men Type: BLOOD SPECIMENOrdering Facility: [facility] Address: [address] [place] [address] Performed By: #### 5 7021-8 ####[facility] LABCLIA [id number] [place] [address] [place] WBC (Bld) [#/Vol] 11.31 10*3/uL High 3.70-11.[address] [facility] Comment on above: Order Comment: Speci men Type: BLOOD SPECIMENOrdering Facility: [facility] Address: [address] [place] [address] Performed By: #### 5 7021-8 ####[facility] LABCLIA [id number] [place] [address] [place] CNOVon 06-21-2024 CNOV Office Visit (FAMPWS ) MONISHA FITZPATRICK ([id number]) 1945 F Date Time Provider Department 06/21/24 1:40 PM DEONTE HAMM FAMPWS During your visit today, we recorded the following information about you: Temperature Pulse Respiration Blood pressure 97.6 degrees 84/minute 16/minute 128/74 Weight 62.6 kg Deonte Hamm MD 06/21/2024 2:26 PM Signed Chief Complaint Patient presents with: Nausea: Had episodes of vomiting last week Fatigue Recording using [employer] software for draft documentation of the visit was discussed with the patient/authorized customer counter representative; all questions welcomed and answered. Patient/authorized customer counter representative agreed to proceed HPI Monisha Fitzpatrick is a 78 year old female who presents here today for Above Complaints. Accompanied today by son Christopher. Nausea and Vomiting: - Acute onset of nausea and vomiting last week, lasting 2 days. - First episode occurred while driving to a hospital appointment; second episode the following day. - No further episodes of vomiting since. - Denies fever, chills, abdominal pain, or diarrhea. - Vomitus appeared as previously consumed food; denies hematemesis or coffee ground emesis. - No known dietary triggers; denies consuming undercooked food. - No similar symptoms in household contacts. - Prescribed Zofran for nausea, which has been effective. Decreased Appetite: - Persistent decreased appetite since episodes of vomiting. - Reports food aversion; consuming Glucerna shakes daily. - Recent weight loss of approximately 1 lb from 06/10 to today. - No significant changes in bowel habits; denies severe constipation or hard stools. - Taking Metamucil and Miralax for bowel regularity. Diabetes: - Fasting blood glucose levels consistently between 100-120 mg/dL over the past 2 weeks. Hypertension: - Recent home blood pressure readings in the 150s/90s last week. - Current blood pressure readin/74 mmHg. Hypertrophic Cardiomyopathy: - Scheduled for a cardiac MRI on 09/13. - Reports fatigue over the past 2-3 months. Past medical history, appointments, medications, allergies reviewed. Previous Medical History PAST MEDICAL HISTORY Diagnosis Date HUSSAIN (acute kidney injury) Aortic ejection murmur 04/06/2014 Arthritis of both knees 01/14/2017 Diabetes mellitus with macular edema, both eyes ([facility]) 02/23/2013 Dr. Oliva, Dr. CorreaZmpy-Zmewmj-dpvty Esophageal reflux External hemorrhoids without mention of complication Hearing aid worn Hyperlipidemia LDL goal <100 11/22/2015 Internal hemorrhoids without mention of complication Laryngospasm epi pen Nonproliferative diabetic retinopathy of both eyes ([facility]) 02/23/2013 PMH - PAST MEDICAL HISTORY OF change in bowel habits PMH - PAST MEDICAL HISTORY OF breathing shut down of and on Renal cyst 12/25/2015 right renal cyst Retinal edema 01/23/2014 Left eye - See scanned documents Retinal hemorrhage 07/19/2010 Unspecified constipation Unspecified essential hypertension Vasomotor rhinitis 04/06/2014 Venous (peripheral) insufficiency 08/13/2011 White coat hypertension 05/01/2013 Previous Surgical History PAST SURGICAL HISTORY Procedure Laterality Date CATARACT EXTRACTION HX Bilateral 10/2018, 09/2020 COLONOSCOPY FLX DX W/COLLJ SPEC WHEN PFRMD 08/21/2005 Repeat in FNA WITH IMAGING Right 12/06/2015 U/S FNA right groin PAST SURGICAL HISTORY OF CHILD TONSILS PAST SURGICAL HISTORY OF Left laser surgery to left eye SCREENING COLONSCOPY NOT HIGH RISK 02/2016 normal Family History FAMILY HISTORY Problem Relation Age of Onset other (gallbladder problems) Mother ulcers/stomach problems Emphysema Father ulcers Coronary Artery Disease Father Diabetes Paternal Grandmother Diabetes Paternal Aunt Diabetes Paternal Uncle Diabetes Maternal Uncle Patient Allergies ALLERGIES Allergen Reactions Lisinopril Swelling angioedema Doxycycline GI Upset Nausea w/o vomiting, bad taste Penicillin G Prednisone JITTERY Sulfa (Sulfonamide * Current Medications Current Outpatient Medications on File Prior to Visit Medication Sig amLODIPine (NORVASC) 2.5 mg tablet Take 1 tablet by mouth once daily. ondansetron (ZOFRAN) 4 mg tablet Take 1 tablet by mouth every 8 hours as needed for nausea/vomiting. metoprolol succinate ER (TOPROL XL) 50 mg 24 hr tablet Take 1 tablet by mouth once daily. blood sugar diagnostic (ACCU-CHEK FAISAL) test strip Test blood sugar(s) one time daily. Dx: E11.9. Insulin: No albuterol HFA (VENTOLIN HFA) 90 mcg/actuation inhaler Inhale 2 Puffs as instructed every 4 hours as needed for wheezing/shortness of breath. losartan (COZAAR) 100 mg tablet Take 1 tablet by mouth once daily. metFORMIN (GLUCOPHAGE) 500 mg tablet Take 2 tablets by mouth two times a day with meals. . atorvastatin (LIPITOR) 20 mg t (more content not included)... Normal [facility] Comprehensive metabolic 2000 panelon 06-21-2024 Albumin [Mass/Vol] 3.9 g/dL Normal 3.9-4.9 [facility] Comment on above: Order Comment: Speci men Type: BLOOD SPECIMENOrdering Facility: [facility] Address: [address] [place] [address] Performed By: #### 2 4323-8, 6-3 ####[facility] LABCLIA [id number] [address] [address] [place] ALP [Catalytic activity/Vol] 64 U/L Normal 34-123 [facility] Comment on above: Order Comment: Speci men Type: BLOOD SPECIMENOrdering Facility: [facility] Address: [address] [place], [place] [address] Performed By: #### 2 4323-8, 3015-3 ####[facility] LABCLIA [id number] [place] [id number] [place] ALT [Catalytic activity/Vol] 15 U/L Normal 7-38 [facility] Comment on above: Order Comment: Speci men Type: BLOOD SPECIMENOrdering Facility: [facility] Address: [address] [place] [id number] Performed By: #### 2 4323-8, 3015-3 ####[facility] LABCLIA [id number] [place] [id number] [place] Anion gap [Moles/Vol] 11 mmol/L Normal 8-15 [facility] Comment on above: Order Comment: Speci men Type: BLOOD SPECIMENOrdering Facility: [facility] Address: [address] [place] [id number] Performed By: #### 2 4323-8, 6-3 ####[facility] LABCLIA [id number] [place] [id number] [place] AST [Catalytic activity/Vol] 22 U/L Normal 13-35 [facility] Comment on above: Order Comment: Speci men Type: BLOOD SPECIMENOrdering Facility: [facility] Address: [address] [place] [id number] Performed By: #### 2 4323-8, 3016-3 ####[facility] LABCLIA [id number] [facility] [place] [address] [address] [place] Bilirubin [Mass/Vol] 0.4 mg/dL Normal 0.2-1.[address] [facility] Comment on above: Order Comment: Speci men Type: BLOOD SPECIMENOrdering Facility: [facility] Address: [address] [place], [place] [id number] Performed By: #### 2 4323-8, 3 ####[facility] LABCLIA [id number] [facility] [address] [place] [address] [place] Calcium [Mass/Vol] 10.6 mg/dL High 8.5-10.2 [facility] Comment on above: Order Comment: Speci men Type: BLOOD SPECIMENOrdering Facility: [facility] Address: [address] [place] [address] Performed By: #### 2 4323-8, 3 ####[facility] LABCLIA [id number] [facility] [address] [place] [address] [place] Chloride [Moles/Vol] 99 mmol/L Normal 98-[address] [facility] Comment on above: Order Comment: Speci men Type: BLOOD SPECIMENOrdering Facility: [facility] Address: [address] [place], [place] [phone] Performed By: #### 2 4323-8, 3 ####[facility] LABCLIA [id number] [facility] [address] [place] [address] [place] CO2 [Moles/Vol] 29 mmol/L Normal 22-30 [facility] Comment on above: Order Comment: Speci men Type: BLOOD SPECIMENOrdering Facility: [facility] Address: [address] [place], [place] [phone] Performed By: #### 2 4323-8, 3015-3 ####[facility] LABCLIA [id number] [address] [place] [address] [place] Creatinine [Mass/Vol] 0.93 mg/dL Normal 0.58-0.96 [facility] Comment on above: Order Comment: Remi bustamante Type: BLOOD SPECIMENOrdering Facility: [facility] Address: [address] [place] [address] Performed By: #### 2 4323-8, 3016-3 ####[facility] LABCLIA [id number] [address] [place] Creatinine and Glomerular filtration rate.predicted panel (S/P/Bld) 63 mL/min/1.73m??? Normal >=60 [facility] Comment on above: Order Comment: Remi bustamante Type: BLOOD SPECIMENOrdering Facility: [facility] Address: [address] [place] [address] Result Comment: Kaitlin mated Glomerular Filtration Rate (eGFR) is calculated using the 2020 CKD-EPI creatinine equation. This equation utilizes serum creatinine, sex, and age as parameters. The creatinine assay has traceable calibration to isotope dilution-mass spectrometry. Refer to KDIGO guidelines for clinical interpretation. In patients with unstable renal function, e.g. those with acute kidney injury, the eGFR may not accurately reflect actual GFR. Performed By: #### 2 4323-8, 6-3 ####[facility] LABCLIA [id number] [place] [address] [place] Glucose [Mass/Vol] 148 mg/dL High 74-99 [facility] Comment on above: Order Comment: Remi bustamante Type: BLOOD SPECIMENOrdering Facility: [facility] Address: [address] [place] [address] Result Comment: The [place] Diabetes [employer] (ADA) provides guidance for cutoff values for fasting glucose and random glucose. The ADA defines fasting as no caloric intake for at least 8 hours. Fasting plasma glucose results between 100 to 125 mg/dL indicate increased risk for diabetes (prediabetes). Fasting plasma glucose results greater than or equal to 126 mg/dL meet the criteria for diagnosis of diabetes. In the absence of unequivocal hyperglycemia, results should be confirmed by repeat testing. In a patient with classic symptoms of hyperglycemia or hyperglycemic crisis, random plasma glucose results greater than or equal to 200 mg/dL meet the criteria for diagnosis of diabetes. Reference: Standards of Medical Care in Diabetes 2016, [place] [employer]. Diabetes Care. 2016.39(Suppl 1). Performed By: #### 2 4323-8, 6-3 ####[facility] LABCLIA [id number] [address] [address] [place] Potassium [Moles/Vol] 4.8 mmol/L Normal 3.7-5.1 [facility] Comment on above: Order Comment: Speci men Type: BLOOD SPECIMENOrdering Facility: [facility] Address: [address] [place] [address] Performed By: #### 2 4323-8, 3 ####[facility] LABCLIA [id number] [address] [address] [place] Protein [Mass/Vol] 6.9 g/dL Normal 6.3-8.0 [facility] Comment on above: Order Comment: Speci men Type: BLOOD SPECIMENOrdering Facility: [facility] Address: [address] [place] [phone] Performed By: #### 2 4323-8, 3 ####[facility] LABIA [id number] [address] [address] [place] Sodium [Moles/Vol] 139 mmol/L Normal 136-144 [facility] Comment on above: Order Comment: Speci men Type: BLOOD SPECIMENOrdering Facility: [facility] Address: [address] [place] [address] Performed By: #### 2 4323-8, 3015-3 ####[facility] LABCLIA [id number] [address] [address] [place] Urea nitrogen [Mass/Vol] 30 mg/dL High 7-21 [facility] Comment on above: Order Comment: Speci men Type: BLOOD SPECIMENOrdering Facility: [facility] Address: [address] [place] [address] Performed By: #### 2 4323-8, 3016-3 ####[facility] LABCLIA [id number] [place] [address] [place] TSH SerPl-aCncon 06-21-2024 TSH Qn 1.640 m[IU]/L Normal 0.270-4.200 [facility] Comment on above: Order Comment: Speci men Type: BLOOD SPECIMENOrdering Facility: [facility] Address: [address] [place] [address] Performed By: #### 2 4323-8, 3016-3 ####[facility] LABIA [id number] [place] [address] [place] Urinalysis complete panel (U )on 06-21-2024 Bacteria LM.HPF (Urine sed) [#/Area] Negative Normal Negative [facility] Comment on above: Order Comment: Speci men Type: URINE SPECIMENOrdering Facility: [facility] Address: [address] [place] [address] Performed By: #### 2 4356-8 ####[facility] LABIA [id number] [place] [address] [place] Bilirubin Ql (U) Negative Normal Negative [facility] Comment on above: Order Comment: Speci men Type: URINE SPECIMENOrdering Facility: [facility] Address: [address] [place] [address] Performed By: #### 2 4356-8 ####[facility] LABIA [id number] [place] [address] [place] CALCIUM OXALATE CRYSTALS (UA) Few Abnormal None Seen [facility] Comment on above: Order Comment: Speci men Type: URINE SPECIMENOrdering Facility: [facility] Address: [address] [place] [address] Performed By: #### 2 4356-8 ####[facility] LABCLIA [id number] [address] [place] [address] [place] Clarity (Unsp spec) Cloudy Abnormal Clear [facility] Comment on above: Order Comment: Speci men Type: URINE SPECIMENOrdering Facility: [facility] Address: [address] [place] [address] Performed By: #### 2 4356-8 ####[facility] LABCLIA [id number] [address] [place] [address] [place] Color (U) Yellow Normal Yellow [facility] Comment on above: Order Comment: Speci men Type: URINE SPECIMENOrdering Facility: [facility] Address: [address] [place] [address] Performed By: #### 2 4356-8 ####[facility] LABCLIA [id number] [address] [place] [address] [place] Epithelial cells LM.HPF (Urine sed) [#/Area] Moderate Normal [facility] Comment on above: Order Comment: Speci men Type: URINE SPECIMENOrdering Facility: [facility] Address: [address] [place] [address] Performed By: #### 2 4356-8 ####[facility] LABCLIA [id number] [address] [place] [address] [place] Glucose Test strip (U) [Mass/Vol] Negative Normal Negative [facility] Comment on above: Order Comment: Speci men Type: URINE SPECIMENOrdering Facility: [facility] Address: [address] [place] [address] Performed By: #### 2 4356-8 ####[facility] LABCLIA [id number] [address] [place] [address] [place] Hemoglobin Ql (U) Negative Normal Negative [facility] Comment on above: Order Comment: Speci men Type: URINE SPECIMENOrdering Facility: [facility] Address: [address] [place] [address] Performed By: #### 2 4356-8 ####[facility] LABCLIA [id number] [address] [place] [address] [place] Hyaline casts (Urine sed) [#/Area] 4-10 /LPF Abnormal 0 /LPF [facility] Comment on above: Order Comment: Speci men Type: URINE SPECIMENOrdering Facility: [facility] Address: [address] [place] [address] Performed By: #### 2 4356-8 ####[facility] LABCLIA [id number] [address], [facility] [place] Ketones Ql (U) Trace Abnormal Negative [facility] Comment on above: Order Comment: Speci men Type: URINE SPECIMENOrdering Facility: [facility] Address: [address] [place] [address] Performed By: #### 2 4356-8 ####[facility] LABCLIA [id number] [address], [place] [address] [place] Leukocyte esterase Test strip Ql (U) Negative Normal Negative [facility] Comment on above: Order Comment: Speci men Type: URINE SPECIMENOrdering Facility: [facility] Address: [address] [place] [address] Performed By: #### 2 4356-8 ####[facility] LABCLIA [id number] [address], [place] [address] [place] Nitrite Ql (U) Negative Normal Negative [facility] Comment on above: Order Comment: Speci men Type: URINE SPECIMENOrdering Facility: [facility] Address: [address] [place] [address] Performed By: #### 2 4356-8 ####[facility] LABCLIA [id number] [place] [id number] [place] pH (U) 6.5 [pH] Normal <8.5 [facility] Comment on above: Order Comment: Speci men Type: URINE SPECIMENOrdering Facility: [facility] Address: [address] [place] [address] Performed By: #### 2 4356-8 ####[facility] LABIA [id number] [place] [address] [place] Protein (U) [Mass/Vol] 1+ Abnormal Negative Cl [facility] Comment on above: Order Comment: Speci men Type: URINE SPECIMENOrdering Facility: [facility] Address: [address] [place] [address] Performed By: #### 2 4356-8 ####[facility] LABIA [id number] [place] [address] [place] RBC LM.HPF (Urine sed) [#/Area] 3-5 /HPF Abnormal 0-2 /HPF [facility] Comment on above: Order Comment: Speci men Type: URINE SPECIMENOrdering Facility: [facility] Address: [address] [place] [address] Performed By: #### 2 4356-8 ####[facility] [id number] [place] [address] [place] Specific gravity (U) [Rel density] 1.028 Normal 1.005-1.030 [facility] Comment on above: Order Comment: Speci men Type: URINE SPECIMENOrdering Facility: [facility] Address: [address] [place] [address] Performed By: #### 2 4356-8 ####[facility] LABIA [id number] [place] [address] [place] Urobilinogen Ql (U) 1.0 EU/dL Normal 0.2-1.0 EU/dL [facility] Comment on above: Order Comment: Speci men Type: URINE SPECIMENOrdering Facility: [facility] Address: [address] [place] [address] Performed By: #### 2 4356-8 ####[facility] LABIA [id number] [place] [address] [place] WBC LM.HPF (Urine sed) [#/Area] 0-5 /HPF Normal 0-5 /HPF [facility] Comment on above: Order Comment: Speci men Type: URINE SPECIMENOrdering Facility: [facility] Address: [address] [place] [address] Performed By: #### 2 4356-8 ####[facility] LABCLIA [id number] [place] [id number] [place] CNPNon 06-16-2024 CNPN Telephone (FAMPWS) MONISHA FITZPATRICK ([id number]) 1945 F Date Time Provider Department 06/16/24 [facility] During your visit today, we recorded the following information about you: Hayde Romero LPN 06/16/2024 12:42 PM Signed Patient calling said she is not feeling any better, nauseated, does not feel like eating. She has not tried the boost or ensure yet. Patient asking if the change in her medications would make her feel like this? Offered an appt with PCP she declined, said was to let the Dr know how I am doing. Please advise Deonte Hamm MD 06/16/2024 1:26 PM Signed A higher dose of metoprolol may make her feel fatigued, but probably not nauseous. Has she had any additional weight loss? Any fever/chills, vomiting, diarrhea? Yumiko Vaz MA 06/16/2024 1:58 PM Signed Called pt, she denies fevers or diarrhea. Vomited once Wed, vomited once . Fatigue has been an issue since April when she was seen. She has lost a few pounds over the last few days, weight is around 136-138, down from 140 lbs. She states that she is following with cardio at [facility] who reduced her Metoprolol from 50 mg daily to 25 mg daily in April. Was restarted on Norvasc 2.5 mg once daily at last visit with Cardio 06/06/24. Cardio had pt wear a heart monitor for 24 hours, took it in on Wed. Has not heard any report back on that. LUIS ANTONIO Curry Christopher B, MD 06/16/2024 2:16 PM Signed Recommend OV for evaluation early next week. If she has worsening symptoms of fever/chills, intractable nausea with vomiting, severe abdominal pain, dehydration, or confusion would recommend ER instead. Will call in rx for zofran to take PRN for nausea. Recommend bland diet, pushing PO fluids over the weekend. Yumiko Vaz MA 06/16/2024 2:27 PM Signed Pt notified and voiced understanding. She is scheduled for next week. Yumiko Vaz MA Allergies As of Date: 06/16/2024 Noted Allergy Reaction LISINOPRIL 02/06/2012 7 - Swelling Comments: angioedema DOXYCYCLINE 05/18/2017 8 - GI Upset Comments: Nausea w/o vomiting, bad taste PENICILLIN G 01/05/2005 PREDNISONE 01/07/2005 Comments: JIJOHNNA SULFA (SULFONAMIDE ANTIBIOTICS) 01/05/2005 Date Reviewed: 05/31/2024 Reviewed by: Em Sommer LPN - Fully Assessed Reason for Visit: Patient Question [3757] Order(s):ondansetron (ZOFRAN) 4 mg tabletTake 1 tablet by mouth every 8 hours as needed for nausea/vomiting.Disp: 30 tabletRfl: 0 Prescriptions as of 06/16/2024 - amLODIPine (NORVASC) 2.5 mg tablet Take 1 tablet by mouth once daily. - ondansetron (ZOFRAN) 4 mg tablet Take 1 tablet by mouth every 8 hours as needed for nausea/vomiting. - metoprolol succinate ER (TOPROL XL) 50 mg 24 hr tablet Take 1 tablet by mouth once daily. - blood sugar diagnostic (ACCU-CHEK FAISAL) test strip Test blood sugar(s) one time daily. Dx: E11.9. Insulin: No - albuterol HFA (VENTOLIN HFA) 90 mcg/actuation inhaler Inhale 2 Puffs as instructed every 4 hours as needed for wheezing/shortness of breath. - losartan (COZAAR) 100 mg tablet Take 1 tablet by mouth once daily. - metFORMIN (GLUCOPHAGE) 500 mg tablet Take 2 tablets by mouth two times a day with meals. . - atorvastatin (LIPITOR) 20 mg tablet Take 1 tablet by mouth daily at bedtime. For cholesterol. - EPINEPHrine (EPIPEN) 0.3 mg/0.3 mL auto-injector 0.3 ml subcutaneously as needed for hypersensitivity reaction - fluticasone (FLONASE) 50 mcg/actuation nasal spray Use 2 Sprays in each nostril once daily. ONE TO TWO SPRAYS TO EACH NOSTRIL ONCE DAILY - Lancing Device with Lancets (ACCU-CHEK FASTCLIX LANCING DEV) 1 Each as directed. Use as directed. DX: E11.9, Insulin: No - aflibercept opthalmic intravitreal (EYLEA) 2 mg/0.05 mL soln Use 0.05 mL in the left eye one time only for 1 dose. - Lancets (ACCU-CHEK MULTICLIX LANCET) lancets 1 Each as directed. daily. Use as instructed. Dx 250.00 No insulin - ibuprofen (MOTRIN) 400 mg tablet Take 1 tablet by mouth twice daily as needed for Pain. - docusate sodium (COLACE) 100 mg capsule Take 100 mg by mouth twice daily. - psyllium seed/sucrose(METAMUCIL SMOOTH TEXTURE 28 % PACKET) twicw daily - CALCIUM 600 + D 600 MG-125 UNIT TAB Take one(1) tablet two(2) times daily. Problem List As Of Date 06/16/2024 Noted Resolved HYPERLIPIDEMIA NEC/NOS [E78.5] 05/12/2005 11/16/2014 BENIGN HYPERTENSION [I10] 05/12/2005 External hemorrhoids without mention of complic* 03/08/2014 Internal hemorrhoids without mention of complic* 03/08/2014 Type II or unspecified type diabetes mellitus w*10/10/2007 02/23/2013 LUMB DISC DIS W MYELOPAT [M51.06] 11/17/2007 VOCAL CORD DISEASE NEC [J38.3] 11/17/2007 Retinal hemorrhage [H35.60] 07/19/2010 01/13/2018 Venous (peripheral) insufficiency [I87.2] 08/13/2011 Nonproliferative diabetic retinopa (more content not included)... Normal [facility] CNOVon 05-31-2024 CNOV Office Visit (FAMPWS ) MONISHA FITZPATRICK ([id number]) 1945 F Date Time Provider Department 05/31/24 9:40 AM [facility] During your visit today, we recorded the following information about you: Pulse Respiration Blood pressure Weight 90/minute 16/minute 148/74 63.4 kg Deonte Hamm MD 05/31/2024 11:58 AM Signed Chief Complaint Patient presents with: F/U 6 months HPI Monisha Roldan Amari is a 78 year old female who presents here today for 6 months. We discontinued patient's HCTZ after finding of hypercalcemia last month and repeat calcium level was back to normal. States that cardiology discontinued her amlodipine at her OV on 05/25 because they increased her metoprolol to 50 mg daily. BP elevated today in initial check. Not monitoring at home since change in rx. Denies headaches, chest pain, SOB, palpitations, LE edema. Referred to cardiology for fatigue with finding of possible hypertrophic cardiomyopathy on echo. Scheduled for cardiac MRI to look into this further. No other specific findings on her labs to cause fatigue. DIABETES MELLITUS: Ms. Fitzpatrick was last seen 6 months ago. Since our last visit she denies excessive thirst or increased frequency of urination, numbness, tingling or pain in extremities, new or unusual visual symptoms, and low sugar/hypoglycemic reactions. Follows a diabetic diet most of the time. She is compliant with medication(s) and is tolerating med(s) without any side effects. She reports checking her glucose on a once a day schedule with sugars in the <120 range. Patient's last HgA1C was Hemoglobin A1C (%) Date Value 12/01/2023 6.1 05/26/2023 6.2 10/11/2020 6.7 04/16/2020 6.6 ) Last Ophthalmology exam was within the past 3 months Last Podiatry exam was more than 12 months ago Noted she has had more than 10 lb weight loss in the last 6 months. Not trying to lose weight, but has not had as much of an appetite. Recent labs and CXR unremarkable. Past medical history, appointments, medications, allergies reviewed. Previous Medical History PAST MEDICAL HISTORY Diagnosis Date HUSSAIN (acute kidney injury) Aortic ejection murmur 04/06/2014 Arthritis of both knees 01/14/2017 Diabetes mellitus with macular edema, both eyes ([facility]) 02/23/2013 Dr. Oliva, Dr. CorreaCkge-Brooyp-ilglr Esophageal reflux External hemorrhoids without mention of complication Hearing aid worn Hyperlipidemia LDL goal <100 11/22/2015 Internal hemorrhoids without mention of complication Laryngospasm epi pen Nonproliferative diabetic retinopathy of both eyes ([facility]) 02/23/2013 PMH - PAST MEDICAL HISTORY OF change in bowel habits PMH - PAST MEDICAL HISTORY OF breathing shut down of and on Renal cyst 12/25/2015 right renal cyst Retinal edema 01/23/2014 Left eye - See scanned documents Retinal hemorrhage 07/19/2010 Unspecified constipation Unspecified essential hypertension Vasomotor rhinitis 04/06/2014 Venous (peripheral) insufficiency 08/13/2011 White coat hypertension 05/01/2013 Previous Surgical History PAST SURGICAL HISTORY Procedure Laterality Date CATARACT EXTRACTION HX Bilateral 10/2018, 09/2020 COLONOSCOPY FLX DX W/COLLJ SPEC WHEN PFRMD 08/21/2005 Repeat in FNA WITH IMAGING Right 12/06/2015 U/S FNA right groin PAST SURGICAL HISTORY OF CHILD TONSILS PAST SURGICAL HISTORY OF Left laser surgery to left eye SCREENING COLONSCOPY NOT HIGH RISK 02/2016 normal Family History FAMILY HISTORY Problem Relation Age of Onset other (gallbladder problems) Mother ulcers/stomach problems Emphysema Father ulcers Coronary Artery Disease Father Diabetes Paternal Grandmother Diabetes Paternal Aunt Diabetes Paternal Uncle Diabetes Maternal Uncle Patient Allergies ALLERGIES Allergen Reactions Lisinopril Swelling angioedema Doxycycline GI Upset Nausea w/o vomiting, bad taste Penicillin G Prednisone JITTERY Sulfa (Sulfonamide * Current Medications Current Outpatient Medications on File Prior to Visit Medication Sig metoprolol succinate ER (TOPROL XL) 50 mg 24 hr tablet Take 1 tablet by mouth once daily. aflibercept opthalmic intravitreal (EYLEA) 2 mg/0.05 mL soln Use 0.05 mL in the left eye one time only for 1 dose. docusate sodium (COLACE) 100 mg capsule Take 100 mg by mouth twice daily. CALCIUM 600 + D 600 MG-125 UNIT TAB Take one(1) tablet two(2) times daily. blood sugar diagnostic (ACCU-CHEK FAISAL) test strip Test blood sugar(s) one time daily. Dx: E11.9. Insulin: No albuterol HFA (VENTOLIN HFA) 90 mcg/actuation inhaler Inhale 2 Puffs as instructed every 4 hours as needed for wheezing/shortness of breath. losartan (COZAAR) 100 mg tablet Take 1 tablet by mouth once daily. amLODIPine (NORVASC) 10 mg tablet Take 1 tablet by mouth once daily. (Patient not taking: Reported on 05/31/2024) metFORMIN (GL (more content not included)... Normal [facility] HbA1c (Bld)on 05-31-2024 Average glucose Estimated from glycated hemoglobin (Bld) [Mass/Vol] 134 mg/dL [facility] Comment on above: eAG: (Estimated aver age glucose) is a calculated value from HgbA1c and is customer counter representative of the average blood glucose level in the last 2-3 month period. HbA1c (Bld) [Mass fraction] 6.3 % High 4.3 - 5.6 % [facility] Comment on above: [place] Diabetes As sociation guidelines indicate that patients with HgbA1c in the range 5.7-6.4% are at increased risk for development of diabetes, and intervention by lifestyle modification may be beneficial. HgbA1c greater or equal to 6.5% is considered diagnostic of diabetes. Interpretation and review of laboratory results Abnormal [facility] Average glucose Estimated from glycated hemoglobin (Bld) [Mass/Vol] 134 mg/dL Normal [facility] Comment on above: Order Comment: Speci men Type: BLOOD SPECIMENOrdering Facility: [facility] Address: [address] [place] [address] Result Comment: eAG: (Estimated average glucose) is a calculated value from HgbA1c and is customer counter representative of the average blood glucose level in the last 2-3 month period. Performed By: #### 5 5454-3 ####[facility] [id number] [place] [id number] [place] HbA1c (Bld) [Mass fraction] 6.3 % High 4.3-5.6 [facility] Comment on above: Order Comment: Speci men Type: BLOOD SPECIMENOrdering Facility: [facility] Address: [address] [place] [address] Result Comment: [place] Diabetes Association guidelines indicate that patients with HgbA1c in the range 5.7-6.4% are at increased risk for development of diabetes, and intervention by lifestyle modification may be beneficial. HgbA1c greater or equal to 6.5% is considered diagnostic of diabetes. Performed By: #### 5 5454-3 ####[facility] [id number] [place] [id number] [place] 12 Lead EKG performed by [facility] on 05-25-2024 12 Lead EKG performed by [facility] [address] [place] [address] 12 Lead EKG performed by [facility] 05/25/24 0832 MR#: [id number] Acct: [id number] Name: MONISHA FITZPATRICK Rep #: [id number] : 1945 78 From: Kaveh Donnelly MD Attending Dr: Dr. Kaveh Donnelly MD Status: DEP AMB Ordering Dr: Kaveh Donnelly MD Date: 05/25/24 [place] [facility] [place] F C Admitted: [facility]12 Lead EKG performed by [facility] ECG Report Interpretation ----Sinus Rhythm Biatrial abnormality -Nonspecific ST depression -Nondiagnostic. ABNORMAL Electronically signed on 07/05/2024 at 13:[address] Kaveh Donnelly [employer] Software Version [id number] 07/05/24 1337 Date Kaveh Donnelly MD CC: Dr. Adrian Hamm MD Date Dictated: 05/25/24831 Date Transcribed: 05/25/24831 Facilities Custodian: TAMIKO Signed Normal [facility] Cardiology Visit Reporton Cardiology Visit Report [facility] [address] [place] [address] OFFICE VISIT Date of Service: 05/25/24 MR#: [id number] Acct: [id number] Name: MONISHA FITZPATRICK Rep #: [id number] : 1945 Provider: Dr. Kaveh Donnelly MD Age/Sex: 78/F [place] [facility] Status: Signed HPI HPI History of Present Illness Details: This lady recently has had an echocardiogram done for a systolic murmur. It is reported as a technically difficult study. Increased LVOT gradient was reported which worsened with Valsalva. Possibility of hokum is raised. Patient denies any complaints. She denies any chest pains or shortness of breath either at rest or with exertion. Denies orthopnea. No PND. No ankle edema. Denies any palpitations. No history of syncope or presyncope. No lightheadedness or dizziness. Intake Vital Signs 05/25/24 10:41 Height 5 ft 5.5 in Weight: 138 lb BMI 22.6 BP 123/81 H Blood Pressure Location Lt brachial Position Sitting Respiration 16 Pulse 88 Pulse Source NIBP Intake Visit Reasons: ABN ECHO (SELF) Improvement Intern Required: No Accompanied by: Son Is patient in pain?: No Allergies lisinopril Allergy (Severe, Verified 05/25/24 10:35) Angioedema penicillin G Allergy (Unknown, Verified 05/25/24 10:35) PT UNSURE OF REACTION Sulfa (Sulfonamide Antibiotics) Allergy (Unknown, Verified 05/25/24 10:35) PT UNSURE OF REACTION doxycycline Adverse Reaction (Intermediate, Verified 05/25/24 10:35) Nausea prednisone Adverse Reaction (Mild, Verified 05/25/24 10:35) Other Medications ???Medication ???Instructions ???Recorded ???Confirmed ???Type aflibercept 2 mg/0.05 mL 2 mg intravitreal ONCE 05/17/24 History intravitreal solution for injection albuterol sulfate 90 mcg/actuation 2 puff inhalation Q4-6H PRN 11/0205/25/24 History aerosol inhaler amlodipine 10 mg tablet 10 mg PO QDAY 05/17/24 05/25/24 Hi story atorvastatin 20 mg tablet 20 mg PO QHS 05/17/24 05/25/24 His tory calcium carbonate-vitamin tab PO BID 05/17/24 05/17/24 Histo ry D2-minerals tablet docusate sodium 100 mg capsule 100 mg PO BID 05/17/24 05/25/24 Hi story epinephrine 0.3 mg/0.3 mL 0.3 mg IM Q5-15M PRN 05/17/2405/09 History injection, auto-injector fluticasone propionate 50 2 spray intranasal QDAY 05/17/24 0 05/25/24 History mcg/actuation nasal spray,suspension (Allergy Relief (fluticasone)) losartan 100 mg tablet 100 mg PO QDAY 05/17/24 05/25/24 H istory metformin 500 mg tablet 1,000 mg PO BID 05/17/24 05/25/24 History psyllium seed (sugar) oral powder 1 tbsp PO BID 05/17/24 05/25/24 H istory (Fiber Therapy (psyllium seed-sucrose) oral powder) metoprolol succinate 25 mg 25 mg PO QDAY 05/25/24 05/25/24 Hi story tablet,extended release 24 hr Ejection fraction %: 66 Have you fallen in the past year?: No PFSH Medical History Aortic ejection murmur Arthritis of both knees Diabetes mellitus with macular edema, both eyes Disorder of bone, unspecified Esophageal reflux disease External hemorrhoids without mention of complication Fatigue Hearing aid worn Hyperlipidemia LDL goal <100 Internal hemorrhoids without mention of complication Laryngospasm Nonproliferative diabetic retinopathy of both eyes Renal cyst Retinal edema Retinal hemorrhage Unintentional weight loss Unspecified constipation Unspecified essential hypertension Vasomotor rhinitis Venous (peripheral) insufficiency White coat syndrome with hypertension Surgical History History of cataract extraction History of colonoscopy History of surgical procedure on eye proper using laser History of tonsillectomy Family History Mother Stomach ulcer Father CAD (coronary artery disease) Emphysema, unspecified Grandmother Diabetes Aunt Diabetes Uncle Diabetes Social History Smoking Status: Never smoker alcohol intake: never substance use type: does not use ROS Const Const: Positive for fatigue and daytime sleepiness; Negative for weakness, headache(s) or weight gain ENT ENT: Negative for headache(s), dizziness, Nosebleed/epistaxis or balance problems Cardio Chest Pain: No Palpitations: No Edema: Bilateral (mild; wear compression stockings) Muscle aches with walking: None Resp Respiratory: Negative for SOB with activity, SOB at rest or SOB orthopnea SOB lying down GI GI: Negative nausea, vomiting or heartburn Musc Musc: Positive for joint pain (knees; shoulders; chronic); Negative for muscle aches/ myalgia, muscle weakness or balance problems (more content not included)... Normal [facility] Comprehensive metabolic 2000 panelon 05-13-2024 Albumin [Mass/Vol] 3.9 g/dL Normal 3.9-4.9 [facility] Comment on above: Order Comment: Remi bustamante Type: BLOOD SPECIMEN [facility] Address: [address] [place] [address] Performed By: #### 2 4323-8 #### [facility] CLIA [id number] [address] [place] [address] [place] ALP [Catalytic activity/Vol] 66 U/L Normal 34-123 [facility] Comment on above: Order Comment: Remi bustamante Type: BLOOD SPECIMEN [facility] Address: [address] [place] [address] Performed By: #### 2 4323-8 #### [facility] CLIA [id number] [address] [place] [address] [place] ALT [Catalytic activity/Vol] 15 U/L Normal 7-38 [facility] Comment on above: Order Comment: Speci men Type: BLOOD SPECIMEN [facility] Address: [address] [place] [address] Performed By: #### 2 4323-8 #### [facility] CLIA [id number] [address] [place] [address] [place] Anion gap [Moles/Vol] 17 mmol/L High 8-15 [facility] Comment on above: Order Comment: Speci men Type: BLOOD SPECIMEN [facility] Address: [address] [place] [address] Performed By: #### 2 4323-8 #### [facility] CLIA [id number] [address] [place] [address] [place] AST [Catalytic activity/Vol] 21 U/L Normal 13-35 [facility] Comment on above: Order Comment: Speci men Type: BLOOD SPECIMEN [facility] Address: [address] [place] [address] Performed By: #### 2 4323-8 #### [facility] CLIA [id number] [address] [place] [address] [place] Bilirubin [Mass/Vol] 0.3 mg/dL Normal 0.2-1.[address] [facility] Comment on above: Order Comment: Speci men Type: BLOOD SPECIMEN [facility] Address: [address] [place] [address] Performed By: #### 2 4323-8 #### [facility] CLIA [id number] [address] [place] [address] [place] Calcium [Mass/Vol] 9.4 mg/dL Normal 8.5-10.2 [facility] Comment on above: Order Comment: Speci men Type: BLOOD SPECIMEN [facility] Address: [address] [place] [address] Performed By: #### 2 4323-8 #### [facility] CLIA [id number] [address] [place] [address] [place] Chloride [Moles/Vol] 101 mmol/L Normal 98-[address] [facility] Comment on above: Order Comment: Speci men Type: BLOOD SPECIMEN [facility] Address: [address] [place] [address] Performed By: #### 2 4323-8 #### [facility] CLIA [id number] [address] [place] [address] [place] CO2 [Moles/Vol] 25 mmol/L Normal 22-30 [facility] Comment on above: Order Comment: Speci men Type: BLOOD SPECIMEN [facility] Address: [address] [place] [address] Performed By: #### 2 4323-8 #### [facility] CLIA [id number] [address] [place] [address] [place] Creatinine [Mass/Vol] 1.06 mg/dL High 0.58-0.96 [facility] Comment on above: Order Comment: Speci men Type: BLOOD SPECIMEN [facility] Address: [address] [place] [address] Performed By: #### 2 4323-8 #### [facility] CLIA [id number] [address] [place] [address] [place] Creatinine and Glomerular filtration rate.predicted panel (S/P/Bld) 54 mL/min/1.73m??? Low >=60 [facility] Comment on above: Order Comment: Speci men Type: BLOOD SPECIMEN [facility] Address: [address] [place] [address] Result Comment: Kaitlin mated Glomerular Filtration Rate (eGFR) is calculated using the 2020 CKD-EPI creatinine equation. This equation utilizes serum creatinine, sex, and age as parameters. The creatinine assay has traceable calibration to isotope dilution-mass spectrometry. Refer to KDIGO guidelines for clinical interpretation. In patients with unstable renal function, e.g. those with acute kidney injury, the eGFR may not accurately reflect actual GFR. Performed By: #### 2 4323-8 #### [facility] CLIA [id number] [address] [place] [address] [place] Glucose [Mass/Vol] 126 mg/dL High 74-99 [facility] Comment on above: Order Comment: Speci men Type: BLOOD SPECIMEN [facility] Address: [address] [place] [address] Result Comment: The [place] Diabetes Association (ADA) provides guidance for cutoff values for fasting glucose and random glucose. The ADA defines fasting as no caloric intake for at least 8 hours. Fasting plasma glucose results between 100 to 125 mg/dL indicate increased risk for diabetes (prediabetes). Fasting plasma glucose results greater than or equal to 126 mg/dL meet the criteria for diagnosis of diabetes. In the absence of unequivocal hyperglycemia, results should be confirmed by repeat testing. In a patient with classic symptoms of hyperglycemia or hyperglycemic crisis, random plasma glucose results greater than or equal to 200 mg/dL meet the criteria for diagnosis of diabetes. Reference: Standards of Medical Care in Diabetes 2016, [place] Diabetes Association. Diabetes Care. 2016.39(Suppl 1). Performed By: #### 2 4323-8 #### [facility] CLIA [id number] [address] [place] [address] [place] Potassium [Moles/Vol] 4.2 mmol/L Normal 3.7-5.1 [facility] Comment on above: Order Comment: Speci men Type: BLOOD SPECIMEN [facility] Address: [address] [place] [address] Performed By: #### 2 4323-8 #### [facility] CLIA [id number] [address] [place] [address] [place] Protein [Mass/Vol] 7.1 g/dL Normal 6.3-8.0 [facility] Comment on above: Order Comment: Remi men Type: BLOOD SPECIMEN [facility] Address: [address] [place] [address] Performed By: #### 2 4323-8 #### [facility] CLIA [id number] [address] [place] [address] [place] Sodium [Moles/Vol] 143 mmol/L Normal 136-144 [facility] Comment on above: Order Comment: Speci men Type: BLOOD SPECIMEN [facility] Address: [address] [place] [address] Performed By: #### 2 4323-8 #### [facility] CLIA [id number] [address] [place] [address] [place] Urea nitrogen [Mass/Vol] 26 mg/dL High 7-21 [facility] Comment on above: Order Comment: Speci men Type: BLOOD SPECIMEN [facility] Address: [address] [place] [address] Performed By: #### 2 4323-8 #### [facility] CLIA [id number] [address] [place] [address] [place] CNOVon 04-27-2024 CNOV Office Visit (FAMPWS ) MONISHA FITZPATRICK Yuli ([id number]) 1945 F Date Time Provider Department 04/27/24 1:00 PM DEONTE HAMM FAMPWS During your visit today, we recorded the following information about you: Pulse Respiration Blood pressure Weight 98/minute 14/minute 110/72 63.7 kg Deonte Hamm MD 04/27/2024 2:31 PM Signed Chief Complaint Patient presents with: Rectal Problem Constipation OLIVIA Mercera Yuli Amari is a 78 year old female who presents here today for Above Complaints. Patient here today to discuss constipation and hemorrhoids. States that developed hard stools with small bowel movements in the last 4-5 days, but has been able to have bowel movement yesterday and today with miralax, metamucil, and colace. Bowel movements have been softer with this. Eating more fruits and vegetables as well. Admits to small amount of blood on TP with painful hemorrhoids. Using OTC hemorrhoid relief cream several times per day which helps somewhat with the pain. Denies abdominal pain, nausea, vomiting, diarrhea, melena. Past medical history, appointments, medications, allergies reviewed. Previous Medical History PAST MEDICAL HISTORY Diagnosis Date Aortic ejection murmur 04/06/2014 Arthritis of both knees 01/14/2017 Diabetes mellitus with macular edema, both eyes ([facility]) 02/23/2013 Dr. Oliva, Dr. RoseOcij-Flgktp-lqagl Esophageal reflux External hemorrhoids without mention of complication Hearing aid worn Hyperlipidemia LDL goal <100 11/22/2015 Internal hemorrhoids without mention of complication Laryngospasm epi pen Nonproliferative diabetic retinopathy of both eyes ([facility]) 02/23/2013 PMH - PAST MEDICAL HISTORY OF change in bowel habits PMH - PAST MEDICAL HISTORY OF breathing shut down of and on Renal cyst 12/25/2015 right renal cyst Retinal edema 01/23/2014 Left eye - See scanned documents Retinal hemorrhage 07/19/2010 Unspecified constipation Unspecified essential hypertension Vasomotor rhinitis 04/06/2014 Venous (peripheral) insufficiency 08/13/2011 White coat hypertension 05/01/2013 Previous Surgical History PAST SURGICAL HISTORY Procedure Laterality Date CATARACT EXTRACTION HX Bilateral 10/2018, 09/2020 COLONOSCOPY FLX DX W/COLLJ SPEC WHEN PFRMD 08/21/2005 Repeat in FNA WITH IMAGING Right 12/06/2015 U/S FNA right groin PAST SURGICAL HISTORY OF CHILD TONSILS PAST SURGICAL HISTORY OF Left laser surgery to left eye SCREENING COLONSCOPY NOT HIGH RISK 02/2016 normal Family History FAMILY HISTORY Problem Relation Age of Onset other (gallbladder problems) Mother ulcers/stomach problems Emphysema Father ulcers Coronary Artery Disease Father Diabetes Paternal Grandmother Diabetes Paternal Aunt Diabetes Paternal Uncle Diabetes Maternal Uncle Patient Allergies ALLERGIES Allergen Reactions Lisinopril Swelling angioedema Doxycycline GI Upset Nausea w/o vomiting, bad taste Penicillin G Prednisone JITTERY Sulfa (Sulfonamide * Current Medications Current Outpatient Medications on File Prior to Visit Medication Sig metoprolol succinate ER (TOPROL XL) 25 mg 24 hr tablet Take 1 tablet by mouth once daily. blood sugar diagnostic (ACCU-CHEK FAISAL) test strip Test blood sugar(s) one time daily. Dx: E11.9. Insulin: No albuterol HFA (VENTOLIN HFA) 90 mcg/actuation inhaler Inhale 2 Puffs as instructed every 4 hours as needed for wheezing/shortness of breath. losartan (COZAAR) 100 mg tablet Take 1 tablet by mouth once daily. amLODIPine (NORVASC) 10 mg tablet Take 1 tablet by mouth once daily. metFORMIN (GLUCOPHAGE) 500 mg tablet Take 2 tablets by mouth two times a day with meals. . atorvastatin (LIPITOR) 20 mg tablet Take 1 tablet by mouth daily at bedtime. For cholesterol. EPINEPHrine (EPIPEN) 0.3 mg/0.3 mL auto-injector 0.3 ml subcutaneously as needed for hypersensitivity reaction fluticasone (FLONASE) 50 mcg/actuation nasal spray Use 2 Sprays in each nostril once daily. ONE TO TWO SPRAYS TO EACH NOSTRIL ONCE DAILY Lancing Device with Lancets (ACCU-CHEK FASTCLIX LANCING DEV) 1 Each as directed. Use as directed. DX: E11.9, Insulin: No aflibercept opthalmic intravitreal (EYLEA) 2 mg/0.05 mL soln Use 0.05 mL in the left eye one time only for 1 dose. Lancets (ACCU-CHEK MULTICLIX LANCET) lancets 1 Each as directed. daily. Use as instructed. Dx 250.00 No insulin ibuprofen (MOTRIN) 400 mg tablet Take 1 tablet by mouth twice daily as needed for Pain. docusate sodium (COLACE) 100 mg capsule Take 100 mg by mouth twice daily. psyllium seed/sucrose(METAMUCIL SMOOTH TEXTURE 28 % PACKET) twicw daily CALCIUM 600 + D 600 MG-125 UNIT TAB Take one(1) tablet two(2) times daily. No current facility-administered medications on file prior to visit. Social History Social History Tobacco Use Smoking status: Never Smok (more content not included)... Normal [facility] XR ABD 2V SUPINE W UPR/DECUB /CTLon 04-27-2024 XR ABD 2V SUPINE W UPR/DECUB/CTL * * *Final Report* * * DATE OF EXAM: Apr 27 2024 2:08PM [id number] - XR ABD 2V SUPINE W UPR/DECUB/CTL / PROCEDURE REASON: Acute constipation * * * * Physician Interpretation * * * * EXAM TITLE: XR ABD 2V SUPINE W UPR/DECUB/CTL EXAM DATE/TIME: 04/27/2024 2:08 PM COMPARISON: None. CLINICAL INDICATION/HISTORY: Acute complication. TECHNIQUE: AP views of the abdomen including upright view are presented. FINDINGS: No abnormally dilated bowel loops identified. Small to moderate amount of stool and gas noted in the large bowel loops. No evidence of free air. There is a 1 cm calcification in the right pelvis, likely representing uterine fibroid calcification. The bony structures appear intact. IMPRESSION: Nonobstructive bowel gas pattern. Facilities Custodian: [facility] Transcribe Date/Time: Apr 27 2024 2:12P Dictated by : RIMA MUIR MD This examination was interpreted and the report reviewed and electronically signed by: RIMA MUIR MD on Apr 27 2024 2:14PM EST [id number] Normal [facility] XR Abdomen Supine and Uprigh ton 04-27-2024 IMPRESSION: Nonobstructive bowel gas pattern. Facilities Custodian: [facility] Transcribe Date/Time: Apr 27 2024 2:12P Dictated by : RIMA MUIR MD This examination was interpreted and the report reviewed and electronically signed by: RIMA MUIR MD on Apr 27 2024 2:14PM EST DIVISION OF RADIOLOGY * * *Final Report* * * DATE OF EXAM: Apr 27 2024 2:08PM [id number] - XR ABD 2V SUPINE W UPR/DECUB/CTL / PROCEDURE REASON: Acute constipation * * * * Physician Interpretation * * * * EXAM TITLE: XR ABD 2V SUPINE W UPR/DECUB/CTL EXAM DATE/TIME: 04/27/2024 2:08 PM COMPARISON: None. CLINICAL INDICATION/HISTORY: Acute complication. TECHNIQUE: AP views of the abdomen including upright view are presented. FINDINGS: No abnormally dilated bowel loops identified. Small to moderate amount of stool and gas noted in the large bowel loops. No evidence of free air. There is a 1 cm calcification in the right pelvis, likely representing uterine fibroid calcification. The bony structures appear intact. DIVISION OF RADIOLOGY Provider, [facility] - 04/27/2024 * * *Final Report* * * DATE OF EXAM: Apr 27 2024 2:08PM WOX [id number] - XR ABD 2V SUPINE W UPR/DECUB/CTL / PROCEDURE REASON: Acute constipation * * * * Physician Interpretation * * * * EXAM TITLE: XR ABD 2V SUPINE W UPR/DECUB/CTL EXAM DATE/TIME: 04/27/2024 2:08 PM COMPARISON: None. CLINICAL INDICATION/HISTORY: Acute complication. TECHNIQUE: AP views of the abdomen including upright view are presented. FINDINGS: No abnormally dilated bowel loops identified. Small to moderate amount of stool and gas noted in the large bowel loops. No evidence of free air. There is a 1 cm calcification in the right pelvis, likely representing uterine fibroid calcification. The bony structures appear intact. IMPRESSION IMPRESSION: Nonobstructive bowel gas pattern. Facilities Custodian: SHANNON Transcribe Date/Time: Apr 27 2024 2:12P Dictated by : RIMA MUIR MD This examination was interpreted and the report reviewed and electronically signed by: RIMA MUIR MD on Apr 27 2024 2:14PM [facility] Radiology Study observation (narrative) [facility] XR Abdomen Supine and Uprigh tOrdered By: Ccf Provider on 04-27-2024 [facility] PROTEIN ELECTROPHORESIS SERU M (P)on 04-26-2024 Albumin [Mass/Vol] 4.04 g/dL Normal 3.43-5.41 [facility] Comment on above: Order Comment: Speci men Type: BLOOD SPECIMENOrdering Facility: [facility] Address: [address] [place] [address] Performed By: #### L [id number] ####[facility] LABCLIA [id number] [place] [address] [place] Alpha 1 globulin Elph [Mass/Vol] 0.26 g/dL Normal 0.18-0.43 [facility] Comment on above: Order Comment: Speci men Type: BLOOD SPECIMENOrdering Facility: [facility] Address: [address] [place] [address] Performed By: #### L [id number] ####[facility] LABCLIA [id number] [place] [address] [place] Alpha 2 globulin Elph [Mass/Vol] 0.63 g/dL Normal 0.42-0.98 [facility] Comment on above: Order Comment: Speci men Type: BLOOD SPECIMENOrdering Facility: [facility] Address: [address] [place] [address] Performed By: #### L [id number] ####[facility] LABIA [id number] [place] [address] [place] Beta globulin Elph [Mass/Vol] 0.94 g/dL Normal 0.61-1.17 [facility] Comment on above: Order Comment: Speci men Type: BLOOD SPECIMENOrdering Facility: [facility] Address: [address] [place] [address] Performed By: #### L [id number] ####[facility] [id number] [address] [place] Gamma globulin Elph [Mass/Vol] 1.04 g/dL Normal 0.53-1.51 [facility] Comment on above: Order Comment: Speci men Type: BLOOD SPECIMENOrdering Facility: [facility] Address: [address] [place] [address] Performed By: #### L [id number] ####[facility] [id number] [place] [address] [place] M-PROTEIN LOCATION Normal [facility] Comment on above: Order Comment: Speci men Type: BLOOD SPECIMENOrdering Facility: [facility] Address: [address] [place] [address] Result Comment: Not Applicable. Performed By: #### L [id number] ####[facility] LABIA [id number] [place] [address] [place] Protein Fractions [Interp] No definitive M protein is identified on protein electrophoresis. Normal No definitive M protein is identified on protein electrophore sis. [facility] Comment on above: Order Comment: Speci men Type: BLOOD SPECIMENOrdering Facility: [facility] Address: [address] [place] [address] Performed By: #### L [id number] ####[facility] LABCLIA [id number] [address] [place] Protein.monoclonal Elph [Mass/Vol] 0.00 g/dL Normal <=0.00 [facility] Comment on above: Order Comment: Speci men Type: BLOOD SPECIMENOrdering Facility: [facility] Address: [address] [place] [address] Performed By: #### L [id number] ####[facility] LABCLIA [id number] SPE STAFF REVIEW Reviewed by Estefani Dodd M.D. Normal [facility] Comment on above: Order Comment: Speci men Type: BLOOD SPECIMENOrdering Facility: [facility] Address: [address] [place] [address] Performed By: #### L [id number] ####[facility] LABIA [id number] [place] [address] [place] Prot SerPl-mCncon 04-26-2024 Protein [Mass/Vol] 6.9 g/dL Normal 6.3-8.0 [facility] Comment on above: Order Comment: Speci men Type: BLOOD SPECIMEN [facility] Address: [address] [place] [address] Performed By: #### 2 4323-8 #### [facility] CLIA [id number] [address] [place] [address] [place] Karla 04-24-2024 RANDALLN Telephone (FAMPWS) MONISHA FITZPATRICK ([id number]) 1945 F Date Time Provider Department 04/24/24 DEONTE HAMM During your visit today, we recorded the following information about you: Steph Venegas LPN 04/24/2024 11:25 AM Signed Pt is calling for follow up lab results from 04/20. One lab is still in process. When reviewing 04/18 results encounter with pt, pt reports she did not remember being told to drink more water so she did not drink more than she normally does. ASHANTI Gomez Christopher B, MD 04/24/2024 11:54 AM Signed Her calcium level is still high, but I am waiting on the rest of her results to determine the next step. Increase water intake and will call when everything is back. Yumiko Vaz MA 04/24/2024 1:37 PM Signed Pt notified. Yumiko Vaz MA Allergies As of Date: 04/24/2024 Noted Allergy Reaction LISINOPRIL 02/06/2012 7 - Swelling Comments: angioedema DOXYCYCLINE 05/18/2017 8 - GI Upset Comments: Nausea w/o vomiting, bad taste PENICILLIN G 01/05/2005 PREDNISONE 01/07/2005 Comments: ROMEL KRISHNAMURTHY (SULFONAMIDE ANTIBIOTICS) 01/05/2005 Date Reviewed: 04/18/2024 Reviewed by: Geraldine Romano LPN - Fully Assessed Reason for Visit: Results, Lab [1201] Prescriptions as of 04/24/2024 - blood sugar diagnostic (ACCU-CHEK FAISAL) test strip Test blood sugar(s) one time daily. Dx: E11.9. Insulin: No - albuterol HFA (VENTOLIN HFA) 90 mcg/actuation inhaler Inhale 2 Puffs as instructed every 4 hours as needed for wheezing/shortness of breath. - hydroCHLOROthiazide 12.5 mg capsule Take 1 capsule by mouth once daily. - losartan (COZAAR) 100 mg tablet Take 1 tablet by mouth once daily. - amLODIPine (NORVASC) 10 mg tablet Take 1 tablet by mouth once daily. - metFORMIN (GLUCOPHAGE) 500 mg tablet Take 2 tablets by mouth two times a day with meals. . - atorvastatin (LIPITOR) 20 mg tablet Take 1 tablet by mouth daily at bedtime. For cholesterol. - EPINEPHrine (EPIPEN) 0.3 mg/0.3 mL auto-injector 0.3 ml subcutaneously as needed for hypersensitivity reaction - fluticasone (FLONASE) 50 mcg/actuation nasal spray Use 2 Sprays in each nostril once daily. ONE TO TWO SPRAYS TO EACH NOSTRIL ONCE DAILY - Lancing Device with Lancets (ACCU-CHEK FASTCLIX LANCING DEV) 1 Each as directed. Use as directed. DX: E11.9, Insulin: No - aflibercept opthalmic intravitreal (EYLEA) 2 mg/0.05 mL soln Use 0.05 mL in the left eye one time only for 1 dose. - Lancets (ACCU-CHEK MULTICLIX LANCET) lancets 1 Each as directed. daily. Use as instructed. Dx 250.00 No insulin - ibuprofen (MOTRIN) 400 mg tablet Take 1 tablet by mouth twice daily as needed for Pain. - docusate sodium (COLACE) 100 mg capsule Take 100 mg by mouth twice daily. - psyllium seed/sucrose(METAMUCIL SMOOTH TEXTURE 28 % PACKET) twicw daily - CALCIUM 600 + D 600 MG-125 UNIT TAB Take one(1) tablet two(2) times daily. Problem List As Of Date 04/24/2024 Noted Resolved HYPERLIPIDEMIA NEC/NOS [E78.5] 05/12/2005 11/16/2014 BENIGN HYPERTENSION [I10] 05/12/2005 External hemorrhoids without mention of complic* 03/08/2014 Internal hemorrhoids without mention of complic* 03/08/2014 Type II or unspecified type diabetes mellitus w*10/10/2007 02/23/2013 LUMB DISC DIS W MYELOPAT [M51.06] 11/17/2007 VOCAL CORD DISEASE NEC [J38.3] 11/17/2007 Retinal hemorrhage [H35.60] 07/19/2010 01/13/2018 Venous (peripheral) insufficiency [I87.2] 08/13/2011 Nonproliferative diabetic retinopathy of both e*02/23/2013 Diabetes mellitus with macular edema, both eyes*02/23/2013 Vasomotor rhinitis [J30.0] 04/06/2014 Aortic ejection murmur [I35.1] 04/06/2014 Hyperlipidemia LDL goal <100 [E78.5] 11/22/2015 Groin mass in female [R19.09] 12/02/2015 Renal cyst [N28.1] 12/25/2015 Screening for intestinal cancer [Z12.10] 01/10/2016 Arthritis of both knees [M17.0] 01/14/2017 Encounter Status:Closed by YUMIKO VAZ on 04/24/24 Normal [facility] 1,25-dihydroxyvitamin D3 [Ma ss/Vol]on 04-20-2024 VIT D1,25 DIHYDROXY 71.4 pg/mL Normal 19.9-79.3 [facility] Comment on above: Order Comment: Speci men Type: BLOOD SPECIMENOrdering Facility: [facility] Address: [address] [place] [address] Performed By: #### 1 989-3, 3 ####[facility] [id number] [place] [id number] [place] 25(OH)D3 [facility] 20[facility] 25-hydroxyvitamin D3 [Mass/Vol] 55.1 ng/mL Normal 31.0-80.0 [facility] Comment on above: Order Comment: Speci men Type: BLOOD SPECIMENOrdering Facility: [facility] Address: [address] [place], [place] [address] Performed By: #### 1 989-3, 3 ####[facility] [id number] [place] [id number] [place] Calcium.ionized [Moles/Vol]o n 04-20-2024 Calcium.ionized (Bld) [Mass/Vol] 1.43 mmol/L High 1.08-1.30 [facility] Comment on above: Order Comment: Speci men Type: BLOOD SPECIMENOrdering Facility: [facility] Address: [address] [place] [address] Performed By: #### 1 995-0 ####[facility] LABCLIA [id number] [place] [address] [place] Calcium.ionized adjusted to pH 7.4 (Bld) [Moles/Vol] 1.41 mmol/L High 1.08-1.30 [facility] Comment on above: Order Comment: Speci men Type: BLOOD SPECIMENOrdering Facility: [facility] Address: [address] [place] [address] Performed By: #### 1 995-0 ####[facility] LABCLIA [id number] [place] [address] [place] Comprehensive metabolic 2000 panelon 04-20-2024 Albumin [Mass/Vol] 4.4 g/dL Normal 3.9-4.9 [facility] Comment on above: Order Comment: Speci men Type: BLOOD SPECIMEN [facility] Address: [address] [place] [address] Performed By: #### 2 4323-8 #### [facility] CLIA [id number] [address] [place] [address] [place] ALP [Catalytic activity/Vol] 75 U/L Normal 34-123 [facility] Comment on above: Order Comment: Speci men Type: BLOOD SPECIMEN [facility] Address: [address] [place] [address] Performed By: #### 2 4323-8 #### [facility] CLIA [id number] [address] [place] [address] [place] ALT [Catalytic activity/Vol] 11 U/L Normal 7-38 [facility] Comment on above: Order Comment: Speci men Type: BLOOD SPECIMEN [facility] Address: [address] [place] [address] Performed By: #### 2 4323-8 #### [facility] CLIA [id number] [address] [place] [address] [place] Anion gap [Moles/Vol] 14 mmol/L Normal 8-15 [facility] Comment on above: Order Comment: Speci men Type: BLOOD SPECIMEN [facility] Address: [address] [place] [address] Performed By: #### 2 4323-8 #### [facility] CLIA [id number] [address] [place] [address] [place] AST [Catalytic activity/Vol] 16 U/L Normal 13-35 [facility] Comment on above: Order Comment: Speci men Type: BLOOD SPECIMEN [facility] Address: [address] [place] [address] Performed By: #### 2 4323-8 #### [facility] CLIA [id number] [address] [place] [address] [place] Bilirubin [Mass/Vol] 0.2 mg/dL Normal 0.2-1.[address] [facility] Comment on above: Order Comment: Speci men Type: BLOOD SPECIMEN [facility] Address: [address] [place] [address] Performed By: #### 2 4323-8 #### [facility] CLIA [id number] [address] [place] [address] [place] Calcium [Mass/Vol] 11.1 mg/dL High 8.5-10.2 [facility] Comment on above: Order Comment: Speci men Type: BLOOD SPECIMEN [facility] Address: [address] [place] [address] Performed By: #### 2 4323-8 #### [facility] CLIA [id number] [address] [place] [address] [place] Chloride [Moles/Vol] 99 mmol/L Normal 98-[address] [facility] Comment on above: Order Comment: Speci men Type: BLOOD SPECIMEN [facility] Address: [address] [place] [address] Performed By: #### 2 4323-8 #### [facility] CLIA [id number] [address] [place] [address] [place] CO2 [Moles/Vol] 29 mmol/L Normal 22-30 [facility] Comment on above: Order Comment: Speci men Type: BLOOD SPECIMEN [facility] Address: [address] [place] [address] Performed By: #### 2 4323-8 #### [facility] CLIA [id number] [address] [place] [address] [place] Creatinine [Mass/Vol] 1.02 mg/dL High 0.58-0.96 [facility] Comment on above: Order Comment: Speci men Type: BLOOD SPECIMEN [facility] Address: [address] [place] [address] Performed By: #### 2 4323-8 #### [facility] CLIA [id number] [address] [place] [address] [place] Creatinine and Glomerular filtration rate.predicted panel (S/P/Bld) 56 mL/min/1.73m??? Low >=60 [facility] Comment on above: Order Comment: Speci men Type: BLOOD SPECIMEN [facility] Address: [address] [place] [address] Result Comment: Kaitlin mated Glomerular Filtration Rate (eGFR) is calculated using the 2020 CKD-EPI creatinine equation. This equation utilizes serum creatinine, sex, and age as parameters. The creatinine assay has traceable calibration to isotope dilution-mass spectrometry. Refer to KDIGO guidelines for clinical interpretation. In patients with unstable renal function, e.g. those with acute kidney injury, the eGFR may not accurately reflect actual GFR. Performed By: #### 2 4323-8 #### [facility] CLIA [id number] [address] [place] [address] [place] Glucose [Mass/Vol] 108 mg/dL High 74-99 [facility] Comment on above: Order Comment: Remi bustamante Type: BLOOD SPECIMEN [facility] Address: [address] [place] [address] Result Comment: The [place] Diabetes [employer] (ADA) provides guidance for cutoff values for fasting glucose and random glucose. The ADA defines fasting as no caloric intake for at least 8 hours. Fasting plasma glucose results between 100 to 125 mg/dL indicate increased risk for diabetes (prediabetes). Fasting plasma glucose results greater than or equal to 126 mg/dL meet the criteria for diagnosis of diabetes. In the absence of unequivocal hyperglycemia, results should be confirmed by repeat testing. In a patient with classic symptoms of hyperglycemia or hyperglycemic crisis, random plasma glucose results greater than or equal to 200 mg/dL meet the criteria for diagnosis of diabetes. Reference: Standards of Medical Care in Diabetes 2016, [place] [employer] Association. Diabetes Care. 2016.39(Suppl 1). Performed By: #### 2 4323-8 #### [facility] CLIA [id number] [address] [place] [address] [place] Potassium [Moles/Vol] 3.6 mmol/L Low 3.7-5.1 [facility] Comment on above: Order Comment: Remi bustamante Type: BLOOD SPECIMEN [facility] Address: [address] [place] [address] Performed By: #### 2 4323-8 #### [facility] CLIA [id number] [address] [place] [address] [place] Protein [Mass/Vol] 7.2 g/dL Normal 6.3-8.0 [facility] Comment on above: Order Comment: Remi bustamante Type: BLOOD SPECIMEN [facility] Address: [address] [place] [address] Performed By: #### 2 4323-8 #### [facility] CLIA [id number] [address] [place] [address] [place] Sodium [Moles/Vol] 142 mmol/L Normal 136-144 [facility] Comment on above: Order Comment: Speci men Type: BLOOD SPECIMEN [facility] Address: [address] [place] [address] Performed By: #### 2 4323-8 #### [facility] CLIA [id number] [address] [place] [address] [place] Urea nitrogen [Mass/Vol] 36 mg/dL High 7-21 [facility] Comment on above: Order Comment: Speci men Type: BLOOD SPECIMEN [facility] Address: [address] [place] [address] Performed By: #### 2 4323-8 #### [facility] CLIA [id number] [address] [place] [address] [place] PTH RELATED PEPTIDEon 2024 PTH RELATED PEPTIDE 3.0 pmol/L Normal 0.0-3.4 [facility] Comment on above: Order Comment: Speci men Type: BLOOD SPECIMENOrdering Facility: [facility] Address: [address] [place] [address] Result Comment: INTE RPRETIVE INFORMATION: Parathyroid Hormone-Related Peptide This test was developed and its performance characteristics determined by [facility]. It has not been cleared or approved by the [place] Food and Drug Administration. This test was performed in a CLIA certified laboratory and is intended for clinical purposes. Performed By: [facility] [address] [place] [address] Correspondence Specialist: Gaston Tom MD, PhD [place] Number: [id number] Performed By: #### P THPEP ####[facility] [id number] [place] [address] PTH-Intact SerPl-ncon - Parathyrin.intact [Mass/Vol] 12 pg/mL Low 15-65 [facility] Comment on above: Order Comment: Speci men Type: BLOOD SPECIMEN [facility] Address: [address] [place] [address] Performed By: #### 2 4323-8 #### [facility] CLIA [id number] [address] [facility] [address] [place] Karla 04-19-2024 NILES Telephone (FAMPWS) MONISHA FITZPATRICK ([id number]) 1945 F Date Time Provider Department 04/19/24 DEONTE HAMM During your visit today, we recorded the following information about you: Ghislaine Walsh, RN 04/19/2024 12:40 PM Signed Pt reports she had labs and cxr done, and pcp advised on some of them. States she is just wondering what she is suppose to do now. Please advise patient. Tonya Shine APRN.RANDALL 04/19/2024 12:50 PM Signed Please let patient know Dr. Hamm is out today. He can review upon his return. Tonya Shine APRN.Hayde Benítez LPN 04/19/2024 4:33 PM Signed Deonte Hamm MD 04/18/2024 11:59 AM EDT Normal CXR. Phoned patient went over results with understanding. Allergies As of Date: 04/19/2024 Noted Allergy Reaction LISINOPRIL 02/06/2012 7 - Swelling Comments: angioedema DOXYCYCLINE 05/18/2017 8 - GI Upset Comments: Nausea w/o vomiting, bad taste PENICILLIN G 01/05/2005 PREDNISONE 01/07/2005 Comments: ROMEL KRISHNAMURTHY (SULFONAMIDE ANTIBIOTICS) 01/05/2005 Date Reviewed: 04/18/2024 Reviewed by: Geraldine Romano LPN - Fully Assessed Reason for Visit: Patient Question [1477] Prescriptions as of 04/19/2024 - blood sugar diagnostic (ACCU-CHEK FAISAL) test strip Test blood sugar(s) one time daily. Dx: E11.9. Insulin: No - albuterol HFA (VENTOLIN HFA) 90 mcg/actuation inhaler Inhale 2 Puffs as instructed every 4 hours as needed for wheezing/shortness of breath. - hydroCHLOROthiazide 12.5 mg capsule Take 1 capsule by mouth once daily. - losartan (COZAAR) 100 mg tablet Take 1 tablet by mouth once daily. - amLODIPine (NORVASC) 10 mg tablet Take 1 tablet by mouth once daily. - metFORMIN (GLUCOPHAGE) 500 mg tablet Take 2 tablets by mouth two times a day with meals. . - atorvastatin (LIPITOR) 20 mg tablet Take 1 tablet by mouth daily at bedtime. For cholesterol. - EPINEPHrine (EPIPEN) 0.3 mg/0.3 mL auto-injector 0.3 ml subcutaneously as needed for hypersensitivity reaction - fluticasone (FLONASE) 50 mcg/actuation nasal spray Use 2 Sprays in each nostril once daily. ONE TO TWO SPRAYS TO EACH NOSTRIL ONCE DAILY - Lancing Device with Lancets (ACCU-CHEK FASTCLIX LANCING DEV) 1 Each as directed. Use as directed. DX: E11.9, Insulin: No - aflibercept opthalmic intravitreal (EYLEA) 2 mg/0.05 mL soln Use 0.05 mL in the left eye one time only for 1 dose. - Lancets (ACCU-CHEK MULTICLIX LANCET) lancets 1 Each as directed. daily. Use as instructed. Dx 250.00 No insulin - ibuprofen (MOTRIN) 400 mg tablet Take 1 tablet by mouth twice daily as needed for Pain. - docusate sodium (COLACE) 100 mg capsule Take 100 mg by mouth twice daily. - psyllium seed/sucrose(METAMUCIL SMOOTH TEXTURE 28 % PACKET) twicw daily - CALCIUM 600 + D 600 MG-125 UNIT TAB Take one(1) tablet two(2) times daily. Problem List As Of Date 04/19/2024 Noted Resolved HYPERLIPIDEMIA NEC/NOS [E78.5] 05/12/2005 11/16/2014 BENIGN HYPERTENSION [I10] 05/12/2005 External hemorrhoids without mention of complic* 03/08/2014 Internal hemorrhoids without mention of complic* 03/08/2014 Type II or unspecified type diabetes mellitus w*10/10/2007 02/23/2013 LUMB DISC DIS W MYELOPAT [M51.06] 11/17/2007 VOCAL CORD DISEASE NEC [J38.3] 11/17/2007 Retinal hemorrhage [H35.60] 07/19/2010 01/13/2018 Venous (peripheral) insufficiency [I87.2] 08/13/2011 Nonproliferative diabetic retinopathy of both e*02/23/2013 Diabetes mellitus with macular edema, both eyes*02/23/2013 Vasomotor rhinitis [J30.0] 04/06/2014 Aortic ejection murmur [I35.1] 04/06/2014 Hyperlipidemia LDL goal <100 [E78.5] 11/22/2015 Groin mass in female [R19.09] 12/02/2015 Renal cyst [N28.1] 12/25/2015 Screening for intestinal cancer [Z12.10] 01/10/2016 Arthritis of both knees [M17.0] 01/14/2017 Encounter Status:Closed by HAYDE ROMERO on 04/19/24 Normal [facility] ECG COMPLETEon 04-19-2024 Atrial Rate [address] [facility] Calculated P [place] 53 degrees [facility] Calculated R [place] 26 degrees [facility] Calculated T [place] 20 degrees [facility] P-R Interval [address] [facility] QRS Duration [address] [facility] QT Interval [address] [facility] QTC Calculation (Bazett) [address] [facility] Ventricular Rate 88 BPM [facility] NORMAL SINUS RHYTHM POSSIBLE LEFT ATRIAL ENLARGEMENT NONSPECIFIC T WAVE ABNORMALITY ABNORMAL ECG Confirmed by MD COOK QARAB ([id number]) on 04/19/2024 11:45:06 AM [facility] NAME : DAKOTA FITZPATRICK PID : [id number] : 1945 Gender : Female Race : ORD : Procedure Date : Apr 18 2024 10:31:16 Edit Date : Apr 19 2024 11:45:12 Diagnosis: NORMAL SINUS RHYTHM POSSIBLE LEFT ATRIAL ENLARGEMENT NONSPECIFIC T WAVE ABNORMALITY ABNORMAL ECG Confirmed by MD COOK QARAB ([id number]) on 04/19/2024 11:45:06 AM Test Reason : Location : [facility] : [facility] Overread By : MD COOK QARAB Edited By : MD COOK QARAB Referred By : Deonte Hamm Acquired by : [id number], [facility] 25(OH)D3 SerPl-mCncon 2024 25-hydroxyvitamin D3 [Mass/Vol] 51.7 ng/mL Normal 31.0-80.0 [facility] Comment on above: Order Comment: Speci men Type: BLOOD SPECIMENOrdering Facility: [facility] Address: [address] [place] [address] Performed By: #### 1 989-3 ####[facility] [id number] [place] [address] [place] 25-hydroxyvitamin D3 [Mass/V ol]on 04-18-2024 Interpretation and review of laboratory results Normal [facility] CBC W Auto Differential pane l (Bld)on 04-18-2024 Basophils (Bld) [#/Vol] 0.09 10*3/uL [facility] Basophils/100 WBC (Bld) 0.9 % [facility] Differential cell count method Nom (Bld) Auto [facility] Eosinophils (Bld) [#/Vol] 0.08 10*3/uL [facility] Eosinophils/100 WBC (Bld) 0.8 % [facility] Erythrocyte distribution width (RBC) [Ratio] 13.1 % 11.5 - 15.0 % [facility] Hematocrit (Bld) [Volume fraction] 35.4 % Low 36.0 - 46.0 % [facility] Hemoglobin (Bld) [Mass/Vol] 11.7 g/dL 11.5 - 15.5 g/dL [facility] Immature granulocytes (Bld) [#/Vol] 0.04 10*3/uL [facility] Immature granulocytes/100 WBC (Bld) 0.4 % [facility] Interpretation and review of laboratory results Abnormal [facility] Lymphocytes (Bld) [#/Vol] 2.29 10*3/uL [facility] Lymphocytes/100 WBC (Bld) 22.2 % [facility] MCH (RBC) [Entitic mass] 29.8 pg 26.0 - 34.[address] [facility] MCHC (RBC) [Mass/Vol] 33.1 g/dL 30.5 - 36.0 g/dL [facility] MCV (RBC) [Entitic vol] 90.3 fL 80.0 - 100.[address] [facility] Monocytes (Bld) [#/Vol] 0.83 10*3/uL [facility] Monocytes/100 WBC (Bld) 8.1 % C [facility] Neutrophils (Bld) [#/Vol] 6.98 10*3/uL [facility] Neutrophils/100 WBC (Bld) 67.6 % [facility] Nucleated RBC (Bld) [#/Vol] NINF [facility] Nucleated RBC/100 WBC (Bld) [Ratio] 0 % /[address] [facility] Platelet mean volume (Bld) [Entitic vol] 10.2 fL 9.0 - 12.[address] [facility] Platelets (Bld) [#/Vol] 402 10*3/uL High [facility] RBC (Bld) [#/Vol] 3.92 10*6/uL 3.90 - 5.2 0 m/uL [facility] WBC (Bld) [#/Vol] 10.31 10*3/uL [facility] Basophils (Bld) [#/Vol] 0.09 10*3/uL Normal <0.11 [facility] Comment on above: Order Comment: Speci men Type: BLOOD SPECIMENOrdering Facility: [facility] Address: [address] [place] [address] Performed By: #### 5 7021-8 ####[facility] [id number] [place] [address] [place] Basophils/100 WBC (Bld) 0.9 % Normal [facility] Comment on above: Order Comment: Speci men Type: BLOOD SPECIMENOrdering Facility: [facility] Address: [address] [place], [place] [address] Performed By: #### 5 7021-8 ####[facility] [id number] [place] [address] [place] Differential cell count method Nom (Bld) Auto Normal [facility] Comment on above: Order Comment: Speci men Type: BLOOD SPECIMENOrdering Facility: [facility] Address: [address] [place] [address] Performed By: #### 5 7021-8 ####[facility] MILLTOWNCLIA [id number] [place] [address] [place] Eosinophils (Bld) [#/Vol] 0.08 10*3/uL Normal <0.46 [facility] Comment on above: Order Comment: Speci men Type: BLOOD SPECIMENOrdering Facility: [facility] Address: [address] [place] [address] Performed By: #### 5 7021-8 ####[facility] MILLWKRISTINLIA [id number] [place] [address] [place] Eosinophils/100 WBC (Bld) 0.8 % Normal [facility] Comment on above: Order Comment: Speci men Type: BLOOD SPECIMENOrdering Facility: [facility] Address: [address] [place] [address] Performed By: #### 5 7021-8 ####[facility]ITALWNCL[facility] [id number] [place] [address] [place] Erythrocyte distribution width (RBC) [Ratio] 13.1 % Normal 11.5-15.0 [facility] Comment on above: Order Comment: Speci men Type: BLOOD SPECIMENOrdering Facility: [facility] Address: [address] [place] [address] Performed By: #### 5 7021-8 ####[facility] MILLTOWNCLIA [id number] [place] [address] [place] Hematocrit (Bld) [Volume fraction] 35.4 % Low 36.0-46.0 [facility] Comment on above: Order Comment: Speci men Type: BLOOD SPECIMENOrdering Facility: [facility] Address: [address] [place] [address] Performed By: #### 5 7021-8 ####[facility] MILLTOWNCLIA [id number] [place] [address] [place] Hemoglobin (Bld) [Mass/Vol] 11.7 g/dL Normal 11.5-15.5 [facility] Comment on above: Order Comment: Speci men Type: BLOOD SPECIMENOrdering Facility: [facility] Address: [address] [place] [address] Performed By: #### 5 7021-8 ####[facility] [id number] [place] [address] [place] Immature granulocytes (Bld) [#/Vol] 0.04 10*3/uL Normal <0.10 [facility] Comment on above: Order Comment: Speci men Type: BLOOD SPECIMENOrdering Facility: [facility] Address: [address] [place] [address] Performed By: #### 5 7021-8 ####[facility] [id number] [place] [address] [place] Immature granulocytes/100 WBC (Bld) 0.4 % Normal [facility] Comment on above: Order Comment: Speci men Type: BLOOD SPECIMENOrdering Facility: [facility] Address: [address] [place] [address] Performed By: #### 5 7021-8 ####[facility] [id number] [place] [address] [place] Lymphocytes (Bld) [#/Vol] 2.29 10*3/uL Normal 1.00-4.00 [facility] Comment on above: Order Comment: Speci men Type: BLOOD SPECIMENOrdering Facility: [facility] Address: [address] [place] [address] Performed By: #### 5 7021-8 ####[facility] [id number] [place] [address] [place] Lymphocytes/100 WBC (Bld) 22.2 % Normal [facility] Comment on above: Order Comment: Speci men Type: BLOOD SPECIMENOrdering Facility: [facility] Address: [address] [place] [address] Performed By: #### 5 7021-8 ####[facility] [id number] [place] [address] [place] MCH (RBC) [Entitic mass] 29.8 pg Normal 26.0-34.0 [facility] Comment on above: Order Comment: Speci men Type: BLOOD SPECIMENOrdering Facility: [facility] Address: [address] [place] [address] Performed By: #### 5 7021-8 ####[facility] [id number] [place] [address] [place] MCHC (RBC) [Mass/Vol] 33.1 g/dL Normal 30.5-36.0 [facility] Comment on above: Order Comment: Speci men Type: BLOOD SPECIMENOrdering Facility: [facility] Address: [address] [place] [address] Performed By: #### 5 7021-8 ####[facility] [id number] [place] [address] [place] MCV (RBC) [Entitic vol] 90.3 fL Normal 80.0-100.0 C [facility] Comment on above: Order Comment: Speci men Type: BLOOD SPECIMENOrdering Facility: [facility] Address: [address] [place], [place] [address] Performed By: #### 5 7021-8 ####[facility] [id number] [place] [address] [place] Monocytes (Bld) [#/Vol] 0.83 10*3/uL Normal <0.87 [facility] Comment on above: Order Comment: Speci men Type: BLOOD SPECIMENOrdering Facility: [facility] Address: [address] [place] [address] Performed By: #### 5 7021-8 ####[facility] MILLTOWNCLIA [id number] [place] [address] [place] Monocytes/100 WBC (Bld) 8.1 % Normal [facility] Comment on above: Order Comment: Speci men Type: BLOOD SPECIMENOrdering Facility: [facility] Address: [address] [place] [address] Performed By: #### 5 7021-8 ####[facility] MILLWNCLIA [id number] [place] [address] [place] Neutrophils (Bld) [#/Vol] 6.98 10*3/uL Normal 1.45-7.50 [facility] Comment on above: Order Comment: Speci men Type: BLOOD SPECIMENOrdering Facility: [facility] Address: [address] [place] [address] Performed By: #### 5 7021-8 ####[facility] MILLWNCLIA [id number] [place] [address] [place] Neutrophils/100 WBC (Bld) 67.6 % Normal [facility] Comment on above: Order Comment: Speci men Type: BLOOD SPECIMENOrdering Facility: [facility] Address: [address] [place] [address] Performed By: #### 5 7021-8 ####[facility] MILLTOWNCLIA [id number] [place] [address] [place] Nucleated RBC (Bld) [#/Vol] 10*3/uL Normal <0.01 [facility] Comment on above: Order Comment: Speci men Type: BLOOD SPECIMENOrdering Facility: [facility] Address: [address] [place] [address] Performed By: #### 5 7021-8 ####[facility] [id number] [place] [address] [place] Nucleated RBC/100 WBC (Bld) [Ratio] 0.0 /100 WBC Normal [facility] Comment on above: Order Comment: Speci men Type: BLOOD SPECIMENOrdering Facility: [facility] Address: [address] [place] [address] Performed By: #### 5 7021-8 ####[facility] [id number] [place] [address] [place] Platelet mean volume (Bld) [Entitic vol] 10.2 fL Normal 9.0-12.7 [facility] Comment on above: Order Comment: Speci men Type: BLOOD SPECIMENOrdering Facility: [facility] Address: [address] [place] [address] Performed By: #### 5 7021-8 ####[facility] [id number] [place] [address] [place] Platelets (Bld) [#/Vol] 402 10*3/uL High 150-400 [facility] Comment on above: Order Comment: Speci men Type: BLOOD SPECIMENOrdering Facility: [facility] Address: [address] [place] [address] Performed By: #### 5 7021-8 ####[facility] BEACHESJENNYXimena [id number] [place] [address] [place] RBC (Bld) [#/Vol] 3.92 10*6/uL Normal 3.90-5.20 [facility] Comment on above: Order Comment: Speci men Type: BLOOD SPECIMENOrdering Facility: [facility] Address: [address] [place] [address] Performed By: #### 5 7021-8 ####[facility] [id number] [place] [address] [place] WBC (Bld) [#/Vol] 10.31 10*3/uL Normal 3.70-11.[address] [facility] Comment on above: Order Comment: Speci men Type: BLOOD SPECIMENOrdering Facility: [facility] Address: [address] [place] [address] Performed By: #### 5 7021-8 ####[facility] LELOUISVILLEKRISTINLIXimena [id number] [place] [address] [place] CNOVon 04-18-2024 CNOV Office Visit (FAMPWS ) MONISHA FITZPATRICK ([id number]) 1945 F Date Time Provider Department 04/18/24 10:00 [facility] During your visit today, we recorded the following information about you: Pulse Respiration Blood pressure Weight 98/minute 16/minute 134/66 65 kg Deonte Hamm MD 04/20/2024 9:40 AM Signed Chief Complaint Patient presents with: Fatigue appetite changes HPI Monisha Yuli Palmerzack is a 78 year old female who presents here today for Above Complaints. Accompanied today by her son. Patient complaining of fatigue and decreased appetite in the last couple of months. Noted weight loss of 8 lbs since November. Has not started any new medications in the last 2 months. Getting about 7-8 hours of sleep. Naps for 1 hour in the afternoon. Admits to getting up several times at night to urinate which is not new. Denies fever/chills, cough, SOB, [place], wheezing, chest pain, chest congestion, palpitations, LE edema, nausea, vomiting, constipation, diarrhea, abdominal pain, dysphagia, odynophagia, dysuria, hematuria, frequency, urgency, bleeding/bruising, melena, depression. Brought in fasting sugar readings which have all been between 80-120 without hypoglycemia. Past medical history, appointments, medications, allergies reviewed. Previous Medical History PAST MEDICAL HISTORY Diagnosis Date Aortic ejection murmur 04/06/2014 Arthritis of both knees 01/14/2017 Diabetes mellitus with macular edema, both eyes ([facility]) 02/23/2013 Dr. Oliva, Dr. [id number]-[id number] Esophageal reflux External hemorrhoids without mention of complication Hearing aid worn Hyperlipidemia LDL goal <100 11/22/2015 Internal hemorrhoids without mention of complication Laryngospasm epi pen Nonproliferative diabetic retinopathy of both eyes ([facility]) 02/23/2013 PMH - PAST MEDICAL HISTORY OF change in bowel habits PMH - PAST MEDICAL HISTORY OF breathing shut down of and on Renal cyst 12/25/2015 right renal cyst Retinal edema 01/23/2014 Left eye - See scanned documents Retinal hemorrhage 07/19/2010 Unspecified constipation Unspecified essential hypertension Vasomotor rhinitis 04/06/2014 Venous (peripheral) insufficiency 08/13/2011 White coat hypertension 05/01/2013 Previous Surgical History PAST SURGICAL HISTORY Procedure Laterality Date CATARACT EXTRACTION HX Bilateral 10/2018, 09/2020 COLONOSCOPY FLX DX W/COLLJ SPEC WHEN PFRMD 08/21/2005 Repeat in FNA WITH IMAGING Right 12/06/2015 U/S FNA right groin PAST SURGICAL HISTORY OF CHILD TONSILS PAST SURGICAL HISTORY OF Left laser surgery to left eye SCREENING COLONSCOPY NOT HIGH RISK 02/2016 normal Family History FAMILY HISTORY Problem Relation Age of Onset other (gallbladder problems) Mother ulcers/stomach problems Emphysema Father ulcers Coronary Artery Disease Father Diabetes Paternal Grandmother Diabetes Paternal Aunt Diabetes Paternal Uncle Diabetes Maternal Uncle Patient Allergies ALLERGIES Allergen Reactions Lisinopril Swelling angioedema Doxycycline GI Upset Nausea w/o vomiting, bad taste Penicillin G Prednisone JITTERY Sulfa (Sulfonamide * Current Medications Current Outpatient Medications on File Prior to Visit Medication Sig blood sugar diagnostic (ACCU-CHEK FAISAL) test strip Test blood sugar(s) one time daily. Dx: E11.9. Insulin: No albuterol HFA (VENTOLIN HFA) 90 mcg/actuation inhaler Inhale 2 Puffs as instructed every 4 hours as needed for wheezing/shortness of breath. hydroCHLOROthiazide 12.5 mg capsule Take 1 capsule by mouth once daily. losartan (COZAAR) 100 mg tablet Take 1 tablet by mouth once daily. amLODIPine (NORVASC) 10 mg tablet Take 1 tablet by mouth once daily. metFORMIN (GLUCOPHAGE) 500 mg tablet Take 2 tablets by mouth two times a day with meals. . atorvastatin (LIPITOR) 20 mg tablet Take 1 tablet by mouth daily at bedtime. For cholesterol. EPINEPHrine (EPIPEN) 0.3 mg/0.3 mL auto-injector 0.3 ml subcutaneously as needed for hypersensitivity reaction fluticasone (FLONASE) 50 mcg/actuation nasal spray Use 2 Sprays in each nostril once daily. ONE TO TWO SPRAYS TO EACH NOSTRIL ONCE DAILY Lancing Device with Lancets (ACCU-CHEK FASTCLIX LANCING DEV) 1 Each as directed. Use as directed. DX: E11.9, Insulin: No aflibercept opthalmic intravitreal (EYLEA) 2 mg/0.05 mL soln Use 0.05 mL in the left eye one time only for 1 dose. Lancets (ACCU-CHEK MULTICLIX LANCET) lancets 1 Each as directed. daily. Use as instructed. Dx 250.00 No insulin ibuprofen (MOTRIN) 400 mg tablet Take 1 tablet by mouth twice daily as needed for Pain. docusate sodium (COLACE) 100 mg capsule Take 100 mg by mouth twice daily. psyllium seed/sucrose(METAMUCIL SMOOTH TEXTURE 28 % PACKET) twicw daily CALCIUM 600 + D 600 MG-125 UNIT TAB Take one(1) tablet two(2) times daily. (more content not included)... Normal [facility] Cobalamin (Vitamin B12) [Mas s/Vol]on 04-18-2024 Interpretation and review of laboratory results Normal [facility] Comprehensive metabolic 2000 panelOrdered By: Juliet Rueda on 04-18-2024 Albumin [Mass/Vol] 4.5 g/dL 3.9 - 4.9 g/dL [facility] ALP [Catalytic activity/Vol] 77 U/L 34 - 123 U/L [facility] ALT [Catalytic activity/Vol] 9 U/L 7 - 38 U/L [facility] Anion gap [Moles/Vol] 13 mmol/L 8 - 15 mmol/L [facility] AST [Catalytic activity/Vol] 14 U/L 13 - 35 U/L [facility] Bilirubin [Mass/Vol] 0.4 mg/dL 0.2 - 1 .3 mg/dL [facility] Calcium [Mass/Vol] 11.3 mg/dL High 8.5 - 10. 2 mg/dL [facility] Chloride [Moles/Vol] 97 mmol/L Low 98 - 10 7 mmol/L [facility] CO2 [Moles/Vol] 29 mmol/L 22 - 30 mmol/L [facility] Creatinine [Mass/Vol] 0.89 mg/dL 0.58 - 0.96 mg/dL [facility] GFR/1.73 sq M.predicted among non-blacks MDRD (S/P/Bld) [Vol rate/Area] 66 mL/min/{1.73_m2} - PINF [facility] Comment on above: Estimated Glomerular Filtration Rate (eGFR) is calculated using the 2020 CKD-EPI creatinine equation. This equation utilizes serum creatinine, sex, and age as parameters. The creatinine assay has traceable calibration to isotope dilution-mass spectrometry. Refer to KDIGO guidelines for clinical interpretation. In patients with unstable renal function, e.g. those with acute kidney injury, the eGFR may not accurately reflect actual GFR. Glucose [Mass/Vol] 104 mg/dL High 74 - 99 mg/dL [facility] Comment on above: The [place] Diab[employer] s Association (ADA) provides guidance for cutoff values for fasting glucose and random glucose. The ADA defines fasting as no caloric intake for at least 8 hours. Fasting plasma glucose results between 100 to 125 mg/dL indicate increased risk for diabetes (prediabetes). Fasting plasma glucose results greater than or equal to 126 mg/dL meet the criteria for diagnosis of diabetes. In the absence of unequivocal hyperglycemia, results should be confirmed by repeat testing. In a patient with classic symptoms of hyperglycemia or hyperglycemic crisis, random plasma glucose results greater than or equal to 200 mg/dL meet the criteria for diagnosis of diabetes. Reference: Standards of Medical Care in Diabetes 2016, [place] [employer]. Diabetes Care. 2016.39(Suppl 1). Interpretation and review of laboratory results Abnormal [facility] Potassium [Moles/Vol] 3.8 mmol/L 3.7 - 5.1 mmol/L [facility] Protein [Mass/Vol] 7.4 g/dL 6.3 - 8.0 g/dL [facility] Sodium [Moles/Vol] 139 mmol/L 136 - 144 mmol/L [facility] Urea nitrogen [Mass/Vol] 36 mg/dL High 7 - 21 mg/dL [facility] Comprehensive metabolic 2000 panelon 04-18-2024 Albumin [Mass/Vol] 4.5 g/dL Normal 3.9-4.9 [facility] Comment on above: Order Comment: Speci men Type: BLOOD SPECIMENOrdering Facility: [facility] Address: [address] [place] [address] Performed By: #### 2 132-9, 3016-3 ####[facility] LABCLIA [id number] [place] [address] [place]#### 98705-4 ####[facility] MILLTOWNCLIA [id number] [place] [address] [place] ALP [Catalytic activity/Vol] 77 U/L Normal 34-123 [facility] Comment on above: Order Comment: Speci men Type: BLOOD SPECIMENOrdering Facility: [facility] Address: [address] [place] [address] Performed By: #### 2 132-9, 3016-3 ####[facility] LABCLIA [id number] [place] [address] [place]#### 72036-6 ####[facility] MILLTOWNCLIA [id number] [place] [address] [place] ALT [Catalytic activity/Vol] 9 U/L Normal 7-38 [facility] Comment on above: Order Comment: Speci men Type: BLOOD SPECIMENOrdering Facility: [facility] Address: [address] [place] [address] Performed By: #### 2 132-9, 3016-3 ####[facility] LABCLIA [id number] [place] [address] [place]#### 06197-2 ####[facility] MILLTOWNCLIA [id number] [place] [address] [place] Anion gap [Moles/Vol] 13 mmol/L Normal 8-15 [facility] Comment on above: Order Comment: Speci men Type: BLOOD SPECIMENOrdering Facility: [facility] Address: [address] [place] [address] Performed By: #### 2 132-9, 3016-3 ####[facility] LABCLIA [id number] [place] [address] [place]#### 68569-3 ####[facility] MILLTOWNCLIA [id number] [place] [address] [place] AST [Catalytic activity/Vol] 14 U/L Normal 13-35 [facility] Comment on above: Order Comment: Speci men Type: BLOOD SPECIMENOrdering Facility: [facility] Address: [address] [place] [address] Performed By: #### 2 132-9, 6-3 ####[facility] LABCLIA [id number] [place] [address] [place]#### 22106-0 ####[facility] MILLTOWNCLIA [id number] [place] [address] [place] Bilirubin [Mass/Vol] 0.4 mg/dL Normal 0.2-1.[address] [facility] Comment on above: Order Comment: Speci men Type: BLOOD SPECIMENOrdering Facility: [facility] Address: [address] [place] [address] Performed By: #### 2 132-9, 6-3 ####[facility] LABCLIA [id number] [place] [address] [place]#### 30462-2 ####[facility] MILLTOWNCLIA [id number] [place] [address] [place] Calcium [Mass/Vol] 11.3 mg/dL High 8.5-10.2 [facility] Comment on above: Order Comment: Speci men Type: BLOOD SPECIMENOrdering Facility: [facility] Address: [address] [place] [address] Performed By: #### 2 132-9, 3016-3 ####[facility] LABCLIA [id number] [place] [address] [place]#### 57694-3 ####[facility] MILLTOWNCLIA [id number] [place] [address] [place] Chloride [Moles/Vol] 97 mmol/L Low 98-[address] [facility] Comment on above: Order Comment: Speci men Type: BLOOD SPECIMENOrdering Facility: [facility] Address: [address] [place] [address] Performed By: #### 2 132-9, 6-3 ####[facility] LABCLIA [id number] [place] [address] [place]#### 58799-6 ####[facility] MILLTOWNCLIA [id number] [place] [address] [place] CO2 [Moles/Vol] 29 mmol/L Normal 22-30 [facility] Comment on above: Order Comment: Speci men Type: BLOOD SPECIMENOrdering Facility: [facility] Address: [address] [place] [address] Performed By: #### 2 132-9, 6-3 ####[facility] LABCLIA [id number] [place] [id number] [place]#### 38282-2 ####[facility] MILLTOWNCLIA [id number] [place] [address] [place] Creatinine [Mass/Vol] 0.89 mg/dL Normal 0.58-0.96 [facility] Comment on above: Order Comment: Speci men Type: BLOOD SPECIMENOrdering Facility: [facility] Address: [address] [place] [address] Performed By: #### 2 132-9, 3016-3 ####[facility] LABCLIA [id number] [address] [place]#### 45772-1 ####[facility] [id number] [place] [address] [facility] Creatinine and Glomerular filtration rate.predicted panel (S/P/Bld) 66 mL/min/1.73m??? Normal >=60 [facility] Comment on above: Order Comment: Remi bustamante Type: BLOOD SPECIMENOrdering Facility: [facility] Address: [address] [place] [address] Result Comment: Kaitlin mated Glomerular Filtration Rate (eGFR) is calculated using the 2020 CKD-EPI creatinine equation. This equation utilizes serum creatinine, sex, and age as parameters. The creatinine assay has traceable calibration to isotope dilution-mass spectrometry. Refer to KDIGO guidelines for clinical interpretation. In patients with unstable renal function, e.g. those with acute kidney injury, the eGFR may not accurately reflect actual GFR. Performed By: #### 2 132-9, 3016-3 ####[facility] LABCLIA [id number] [place] [address] [place]#### 82490-3 ####[facility] [id number] [place] [address] [place] Glucose [Mass/Vol] 104 mg/dL High 74-99 [facility] Comment on above: Order Comment: Remi robby Type: BLOOD SPECIMENOrdering Facility: [facility] Address: [address] [place] [address] Result Comment: The [place] [employer] Association (ADA) provides guidance for cutoff values for fasting glucose and random glucose. The ADA defines fasting as no caloric intake for at least 8 hours. Fasting plasma glucose results between 100 to 125 mg/dL indicate increased risk for diabetes (prediabetes). Fasting plasma glucose results greater than or equal to 126 mg/dL meet the criteria for diagnosis of diabetes. In the absence of unequivocal hyperglycemia, results should be confirmed by repeat testing. In a patient with classic symptoms of hyperglycemia or hyperglycemic crisis, random plasma glucose results greater than or equal to 200 mg/dL meet the criteria for diagnosis of diabetes. Reference: Standards of Medical Care in Diabetes 2016, [place] [employer]. Diabetes Care. 2016.39(Suppl 1). Performed By: #### 2 132-9, 6-3 ####[facility] LABCLIA [id number] [place] [address] [place]#### 65057-0 ####[facility] [id number] [place] [address] [place] Potassium [Moles/Vol] 3.8 mmol/L Normal 3.7-5.1 [facility] Comment on above: Order Comment: Speci men Type: BLOOD SPECIMENOrdering Facility: [facility] Address: [address] [place] [address] Performed By: #### 2 132-, 3 ####[facility] LABIA [id number] [place] [address] [place]#### 51286-5 ####[facility] [id number] [place] [address] [place] Protein [Mass/Vol] 7.4 g/dL Normal 6.3-8.0 [facility] Comment on above: Order Comment: Speci men Type: BLOOD SPECIMENOrdering Facility: [facility] Address: [address] [place] [address] Performed By: #### 2 132-9, 6-3 ####[facility] LABCLIA [id number] [place] [address] [place]#### 71159-2 ####[facility] MILLTOWNCLIA [id number] [place] [address] [place] Sodium [Moles/Vol] 139 mmol/L Normal 136-144 [facility] Comment on above: Order Comment: Speci men Type: BLOOD SPECIMENOrdering Facility: [facility] Address: [address] [place] [address] Performed By: #### 2 132-9, 3016-3 ####[facility] LABCLIA [id number] [place] [address] [place]#### 27029-9 ####[facility] MILLWNCLIA [id number] [place] [address] [place] Urea nitrogen [Mass/Vol] 36 mg/dL High 7-21 [facility] Comment on above: Order Comment: Speci men Type: BLOOD SPECIMENOrdering Facility: [facility] Address: [address] [place] [address] Performed By: #### 2 132-9, 3016-3 ####[facility] LABCLIA [id number] [place] [address] [place]#### 20661-4 ####[facility] MILLWNCLIA [id number] [place] [address] [place] [id number] 04-18-2024 ECG01 Ventricular Rate : 8 8 BPM Atrial Rate : 88 BPM P-R Interval : 178 ms QRS Duration : 94 ms Q-T Interval : 338 ms QTC Calculation(Bazett) : 408 ms Calculated P [place] : 53 degrees Calculated R [place] : 26 degrees Calculated T [place] : 20 degrees NORMAL SINUS RHYTHM POSSIBLE LEFT ATRIAL ENLARGEMENT NONSPECIFIC T WAVE ABNORMALITY ABNORMAL ECG Confirmed by MD JOYCE, QAB ([id number]) on 04/19/2024 11:45:06 AM NAME : MONISHA FITZPATRICK PID : [id number] : 1945 Gender : Female Race : ORD : Procedure Date : Apr 18 2024 10:31:16 Edit Date : Apr 19 2024 11:45:12 Diagnosis: NORMAL SINUS RHYTHM POSSIBLE LEFT ATRIAL ENLARGEMENT NONSPECIFIC T WAVE ABNORMALITY ABNORMAL ECG Confirmed by MD COOK QARAB ([id number]) on 04/19/2024 11:45:06 AM Test Reason : Location : 185 : [facility] Overread By : MD COOK QARAB Edited By : MD COOK QARAB Referred By : Deonte Hamm Acquired by : [id number], Normal [facility] ECHOon 04-18-2024 CONCLUSIONS: - Technically difficult exam due to suboptimal positioning and body habitus. - Exam indication: Cardiac murmur - The left ventricle is normal in size. There is mild left ventricular hypertrophy. Left ventricular systolic function is normal. EF = 66 5% (2D biplane) Grade I left ventricular diastolic dysfunction. - The right ventricle is normal in size. Right ventricular systolic function is normal. - There is THOMAS at rest with an LVOT gradient of 18 mmHg. LVOT gradient increased to 43 mmHg with valsalva. - Exam was compared with the prior echocardiographic exam performed on 11/04/2020. LVOT gradient now present , worse with valsalva 43 mm max consider hypertrophic obstructive cardiomyopathy * * * Final * * * [facility] Echocardiography Report: Transthoracic Echo [facility] Date of service: 04/18/2024 1:48:21 PM DATA ANALYST Ordering physician: DEONTE HAMM Indication: Cardiac murmur Technologist: Dania Flood [facility] Interpreting physician: Palomo Garcia MD PATIENT: Name: MRS. MONISHA FITZPATRICK : 1945 Age: 78 years Gender: F History of hypertension, diabetes mellitus and dyslipidemia. Primary rhythm: sinus. Height: 165.10 cm BSA: 1.73 m Weight: 64.96 kg BMI: 23.8 kg/m Heart rate 83 bpm Blood pressure 134/66 mmHg Technically difficult exam due to suboptimal positioning and body habitus. Color Doppler was utilized to interrogate the cardiac valves assessed and spectral Doppler was utilized to determine the flow velocities and pressure gradients reported in this exam. MEASUREMENTS: Value Indexed Normal Max aortic dimension 3.4 cm Ao < 3.8 LV ID (diastole) 3.5 cm (2D) 2.01 cm/m LV ID (systole) 2.0 cm (2D) 1.18 cm/m IVS, leaflet tips 1.2 cm (2D) Posterior wall thickness 1.1 cm (2D) Left ventricular mass 122 g (2D) 71 g/m LV stroke volume 44 ml (2D biplane) LV end diastolic volume 66 ml (2D biplane) 38.5 ml/m 29<=EDVi<62 LV end systolic volume 22 ml (2D biplane) 13.0 ml/m Ejection Fraction 66 % (2D biplane) EF > 54 FINDINGS: LEFT VENTRICLE The left ventricle is normal in size. There is mild left ventricular hypertrophy. Left ventricular systolic function is normal. Grade I left ventricular diastolic dysfunction. Mitral annular lateral E/e': 13.5. Mitral annular septal E/e': 13.5. Wall Motion: All scored segments are normal. RIGHT VENTRICLE The right ventricle is normal in size. Right ventricular systolic function is normal. RV systolic tissue Doppler velocity is 14.0 cm/s. Tricuspid annular displacement is 2.3 cm. Estimated right ventricular systolic pressure is 38 mmHg consistent with mild pulmonary hypertension. Estimated right atrial pressure is 3 mmHg (although IVC not seen). LEFT ATRIUM The left atrial cavity is normal in size. RIGHT ATRIUM The right atrial cavity is normal in size. Inferior Vena Cava: The inferior vena cava appears normal measuring 1.4 cm. MITRAL VALVE There is mild mitral annular calcification observed posterior. There is trace mitral valve regurgitation. The pressure half time is 82 msec. The peak mitral E/A ratio is 0.70. The average mitral E/e' ratio is 13.5. The mitral flow deceleration time is 283 msec. TRICUSPID VALVE The tricuspid valve leaflets are structurally normal. There is mild (1+ - 2+) tricuspid valve regurgitation. AORTIC VALVE There is no aortic valve stenosis. There is no aortic valve regurgitation. There is mild thickening. There is mild calcification. The peak gradient is 20 mmHg (peak velocity = 222.1 cm/s). PULMONIC VALVE The pulmonic valve cusps are structurally normal. There is mild (1+) pulmonic valve regurgitation. AORTA The visualized aorta is normal in size. Measurements - Mid ascending aorta 3.4 cm. PERICARDIUM There is no pericardial effusion. There is an epicardial fat pad. [facility] Echocardiography Echocardiography Report: Transthoracic Echo [facility] Date of service: 04/18/2024 1:48:21 PM DATA ANALYST Ordering physician: DEONTE HAMM Indication: Cardiac murmur Technologist: Dania Flood [facility] Interpreting physician: Palomo Garcia MD PATIENT: Name: MRS. MONISHA FITZPATRICK : 1945 Age: 78 years Gender: F History of hypertension, diabetes mellitus and dyslipidemia. Primary rhythm: sinus. Height: 165.10 cm BSA: 1.73 m Weight: 64.96 kg BMI: 23.8 kg/m Heart rate 83 bpm Blood pressure 134/66 mmHg Technically difficult exam due to suboptimal positioning and body habitus. Color Doppler was utilized to interrogate the cardiac valves assessed and spectral Doppler was utilized to determine the flow velocities and pressure gradients reported in this exam. MEASUREMENTS: Value Indexed Normal Max aortic dimension 3.4 cm Ao < 3.8 LV ID (diastole) 3.5 cm (2D) 2.01 cm/m LV ID (systole) 2.0 cm (2D) 1.18 cm/m IVS, leaflet tips 1.2 cm (2D) Posterior wall thickness 1.1 cm (2D) Left ventricular mass 122 g (2D) 71 g/m LV stroke volume 44 ml (2D biplane) LV end diastolic volume 66 ml (2D biplane) 38.5 ml/m 29<=EDVi<62 LV end systolic volume 22 ml (2D biplane) 13.0 ml/m Ejection Fraction 66 % (2D biplane) EF > 54 FINDINGS: LEFT VENTRICLE The left ventricle is normal in size. There is mild left ventricular hypertrophy. Left ventricular systolic function is normal. Grade I left ventricular diastolic dysfunction. Mitral annular lateral E/e': 13.5. Mitral annular septal E/e': 13.5. Wall Motion: All scored segments are normal. RIGHT VENTRICLE The right ventricle is normal in size. Right ventricular systolic function is normal. RV systolic tissue Doppler velocity is 14.0 cm/s. Tricuspid annular displacement is 2.3 cm. Estimated right ventricular systolic pressure is 38 mmHg consistent with mild pulmonary hypertension. Estimated right atrial pressure is 3 mmHg (although IVC not seen). LEFT ATRIUM The left atrial cavity is normal in size. RIGHT ATRIUM The right atrial cavity is normal in size. Inferior Vena Cava: The inferior vena cava appears normal measuring 1.4 cm. MITRAL VALVE There is mild mitral annular calcification observed posterior. There is trace mitral valve regurgitation. The pressure half time is 82 msec. The peak mitral E/A ratio is 0.70. The average mitral E/e' ratio is 13.5. The mitral flow deceleration time is 283 msec. TRICUSPID VALVE The tricuspid valve leaflets are structurally normal. There is mild (1+ - 2+) tricuspid valve regurgitation. AORTIC VALVE There is no aortic valve stenosis. There is no aortic valve regurgitation. There is mild thickening. There is mild calcification. The peak gradient is 20 mmHg (peak velocity = 222.1 cm/s). PULMONIC VALVE The pulmonic valve cusps are structurally normal. There is mild (1+) pulmonic valve regurgitation. AORTA The visualized aorta is normal in size. Measurements - Mid ascending aorta 3.4 cm. PERICARDIUM There is no pericardial effusion. There is an epicardial fat pad. CONCLUSIONS: - Technically difficult exam due to suboptimal positioning and body habitus. - Exam indication: Cardiac murmur - The left ventricle is normal in size. There is mild left ventricular hypertrophy. Left ventricular systolic function is normal. EF = 66 5% (2D biplane) Grade I left ventricular diastolic dysfunction. - The right ventricle is normal in size. Right ventricular systolic function is normal. - There is THOMAS at rest with an LVOT gradient of 18 mmHg. LVOT gradient increased to 43 mmHg with valsalva. - Exam was compared with the prior echocardiographic exam performed on 11/04/2020. LVOT gradient now present , worse with valsalva 43 mm max consider hypertrophic obstructive cardiomyopathy * * * Final * * * [employer] : [id number] Normal [facility] THYROID STIMULATING HORMONEo n 04-18-2024 TSH Qn 1.72 m[IU]/L [facility] TSH Qnon 04-18-2024 Interpretation and review of laboratory results Normal [facility] TSH SerPl-aCncon 04-18-2024 TSH Qn 1.720 m[IU]/L Normal 0.270-4.200 [facility] Comment on above: Order Comment: Speci men Type: BLOOD SPECIMENOrdering Facility: [facility] Address: [address] [place] [address] Performed By: #### 2 132-9, 3016-3 ####[facility] LABCLIA [id number] [address] OF [facility]#### 86491-3 ####[facility] [id number] [place], [place] [id number] [place] [address] [place] UA DIP, URINE (POC)on 2024 BILIRUBIN UA (POCT) Negative Negative [facility] CLARITY UA (POCT) Clear [facility] COLOR UA (POCT) Dark yellow [facility] GLUCOSE UA (POCT) Negative Negative mg/dL [facility] Hemoglobin Ql (U) Negative Negative [facility] Interpretation and review of laboratory results Abnormal [facility] KETONE UA (POCT) Trace Negative mg/dL [facility] LEUKOCYTES UA (POCT) Negative Negative [facility] NITRITE UA (POCT) Negative Negative [facility] PH UA (POCT) 6.5 4.5 - 8.0 [facility] Protein Ql (U) 30 mg/dL Abnormal Negative [facility] SPECIFIC GRAVITY UA (POCT) 1.02 1.005 - 1.030 [facility] UROBILINOGEN UA (POCT) 0.2 Michaela l E.U./dL [facility] Location:[address] POINT OF CARE [facility] VITAMIN B12on 04-18-2024 Cobalamin (Vitamin B12) [Mass/Vol] 267 pg/mL 232 - 1245 pg/mL [facility] VITAMIN D 25 HYDROXYon 04-18 25-hydroxyvitamin D3 [Mass/Vol] 51.7 ng/mL 31.0 - 80.0 ng/mL [facility] Vit B12 SerPl-mCncon 025 Cobalamin (Vitamin B12) [Mass/Vol] 267 pg/mL Normal 232-1245 [facility] Comment on above: Order Comment: Speci men Type: BLOOD SPECIMENOrdering Facility: [facility] Address: [address] [place] [address] Performed By: #### 2 132-9, 3016-3 ####[facility] LABCLIA [id number] [address]#### 76440-5 ####[facility] [id number] [place] [id number] [place] [address] OF [facility] XR CHEST 2V FRONTAL/LATon XR CHEST 2V FRONTAL/LAT * * *Final Repor t* * * DATE OF EXAM: Apr 18 2024 11:30AM WOX [id number] - XR CHEST 2V FRONTAL/LAT / PROCEDURE REASON: multiple diagnoses * * * * Physician Interpretation * * * * EXAMINATION: CHEST RADIOGRAPH (2 VIEW FRONTAL and LATERAL) CLINICAL HISTORY: Fatigue, unspecified type Loss of appetite MQ: XC2_6 EXAM DATE/TIME: 04/18/2024 11:30 AM COMPARISON: No relevant prior studies available. RESULT: Lines, tubes, and devices: None. Lungs and pleura: No consolidation. No lung mass. No pleural effusion. No pneumothorax. Cardiomediastinal silhouette: Heart top normal in size. Aorta mildly tortuous with atherosclerotic calcifications. Bones and soft tissues: Osseous demineralization and degenerative changes. IMPRESSION: No acute radiographic abnormality. Facilities Custodian: SHANNON Transcribe Date/Time: Apr 18 2024 11:32A Dictated by : KELBY BEACH MD This examination was interpreted and the report reviewed and electronically signed by: KELBY BEACH MD on Apr 18 2024 11:33AM EST [id number] Normal [facility] XR Chest PA and Lateralon IMPRESSION: No acute radiographic abnormality. Facilities Custodian: PSCB Transcribe Date/Time: Apr 18 2024 11:32A Dictated by : KELBY BEACH MD This examination was interpreted and the report reviewed and electronically signed by: KELBY BEACH MD on Apr 18 2024 11:33AM [facility] [[email or web address]] DIVISION OF RADIOLOGY * * *Final Report* * * DATE OF EXAM: Apr 18 2024 11:30AM WOX [id number] - XR CHEST 2V FRONTAL/LAT / PROCEDURE REASON: multiple diagnoses * * * * Physician Interpretation * * * * EXAMINATION: CHEST RADIOGRAPH (2 VIEW FRONTAL & LATERAL) CLINICAL HISTORY: Fatigue, unspecified type Loss of appetite MQ: XC2_6 EXAM DATE/TIME: 04/18/2024 11:30 AM COMPARISON: No relevant prior studies available. RESULT: Lines, tubes, and devices: None. Lungs and pleura: No consolidation. No lung mass. No pleural effusion. No pneumothorax. Cardiomediastinal silhouette: Heart top normal in size. Aorta mildly tortuous with atherosclerotic calcifications. Bones and soft tissues: Osseous demineralization and degenerative changes. DIVISION OF RADIOLOGY Provider, [facility] - 04/18/2024 * * *Final Report* * * DATE OF EXAM: Apr 18 2024 11:30AM WOX [id number] - XR CHEST 2V FRONTAL/LAT / PROCEDURE REASON: multiple diagnoses * * * * Physician Interpretation * * * * EXAMINATION: CHEST RADIOGRAPH (2 VIEW FRONTAL & LATERAL) CLINICAL HISTORY: Fatigue, unspecified type Loss of appetite MQ: XC2_6 EXAM DATE/TIME: 04/18/2024 11:30 AM COMPARISON: No relevant prior studies available. RESULT: Lines, tubes, and devices: None. Lungs and pleura: No consolidation. No lung mass. No pleural effusion. No pneumothorax. Cardiomediastinal silhouette: Heart top normal in size. Aorta mildly tortuous with atherosclerotic calcifications. Bones and soft tissues: Osseous demineralization and degenerative changes. IMPRESSION IMPRESSION: No acute radiographic abnormality. Facilities Custodian: PSCB Transcribe Date/Time: Apr 18 2024 11:32A Dictated by : KELBY BEACH MD This examination was interpreted and the report reviewed and electronically signed by: KELBY BEACH MD on Apr 18 2024 11:33AM [facility] Radiology Study observation (narrative) Martha [facility] XR Chest PA and LateralOrder ed By: Cc Provider on 04-18-2024 [facility] ALBUMIN/CREATININE RATIO, UR INEon 12-03-2023 Albumin DL <= 20 mg/L (U) [Mass/Vol] mg/L mg/L [facility] Albumin/Creatinine (U) [Mass ratio] [facility] Comment on above: Not calculated Adult Male and Female Nephrotic Criteria: <30 mg/g is considered normal to mildly increased 30-300 mg/g is considered moderately increased >300 mg/g is considered severely increased KDIGO. (2013). KDIGO 2012 Clinical Practice Guideline for the Evaluation and Management of Chronic Kidney Disease. Official Journal of the International Society of Nephrology, 3(1), 1-150. Creatinine (U) [Mass/Vol] 27.8 mg/dL 20.0 - 300.0 mg/dL [facility] Albumin DL <= 20 mg/L (U) [Mass/Vol] mg/dL Normal [facility] Comment on above: Order Comment: Speci men Type: BLOOD SPECIMEN [facility] Address: [address] [place] [address] Performed By: #### 2 4323-8 #### [facility] CLIA [id number] [address] [place] [address] [place] Albumin/Creatinine (U) [Mass ratio] Normal [facility] Comment on above: Order Comment: Speci men Type: BLOOD SPECIMEN [facility] Address: [address] [place] [address] Result Comment: Not calculated Adult Male and Female Nephrotic Criteria: <30 mg/g is considered normal to mildly increased 30-300 mg/g is considered moderately increased >300 mg/g is considered severely increased KDIGO. (2013). KDIGO 2012 Clinical Practice Guideline for the Evaluation and Management of Chronic Kidney Disease. Official Journal of the International Society of Nephrology, 3(1), 1-150. Performed By: #### 2 4323-8 #### [facility] CLIA [id number] [address] [place] [address] [place] Creatinine (U) [Mass/Vol] 27.8 mg/dL Normal 20.0-300.0 [facility] Comment on above: Order Comment: Speci men Type: BLOOD SPECIMEN [facility] Address: [address] [place] [address] Performed By: #### 2 4323-8 #### [facility] CLIA [id number] [address] [place] [address] [place] [address] [place] CBC W Auto Differential pane l (Bld)on 12-01-2023 Basophils (Bld) [#/Vol] 0.11 10*3/uL High [facility] Basophils/100 WBC (Bld) 1.1 % C [facility] Differential cell count method Nom (Bld) Auto [facility] Eosinophils (Bld) [#/Vol] 0.14 10*3/uL [facility] Eosinophils/100 WBC (Bld) 1.4 % [facility] Erythrocyte distribution width (RBC) [Ratio] 12.9 % 11.5 - 15.0 % [facility] Hematocrit (Bld) [Volume fraction] 36.5 % 36.0 - 46.0 % [facility] Hemoglobin (Bld) [Mass/Vol] 11.7 g/dL 11.5 - 15.5 g/dL [facility] Immature granulocytes (Bld) [#/Vol] 0.03 10*3/uL [facility] Immature granulocytes/100 WBC (Bld) 0.3 % [facility] Interpretation and review of laboratory results Abnormal [facility] Lymphocytes (Bld) [#/Vol] 2.48 10*3/uL [facility] Lymphocytes/100 WBC (Bld) 25.2 % [facility] MCH (RBC) [Entitic mass] 28.7 pg 26.0 - 34.[address] [facility] MCHC (RBC) [Mass/Vol] 32.1 g/dL 30.5 - 36.0 g/dL [facility] MCV (RBC) [Entitic vol] 89.7 fL 80.0 - 100.[address] [facility] Monocytes (Bld) [#/Vol] 0.88 10*3/uL High [facility] Monocytes/100 WBC (Bld) 8.9 % C [facility] Neutrophils (Bld) [#/Vol] 6.20 10*3/uL [facility] Neutrophils/100 WBC (Bld) 63.1 % [facility] Nucleated RBC (Bld) [#/Vol] NINF [facility] Nucleated RBC/100 WBC (Bld) [Ratio] 0.0 % /[address] [facility] Platelet mean volume (Bld) [Entitic vol] 10.7 fL 9.0 - 12.[address] [facility] Platelets (Bld) [#/Vol] 406 10*3/uL High [facility] RBC (Bld) [#/Vol] 4.07 10*6/uL 3.90 - 5.2 0 m/uL [facility] WBC (Bld) [#/Vol] 9.84 10*3/uL [facility] Basophils (Bld) [#/Vol] 0.11 10*3/uL High <0.11 [facility] Comment on above: Order Comment: Speci men Type: BLOOD SPECIMENOrdering Facility: [facility] Address: [address] [place] [address] Performed By: #### 5 7021-8 ####[facility] LABCLIA [id number] [place] [address] [place] Basophils/100 WBC (Bld) 1.1 % Normal C [facility] Comment on above: Order Comment: Speci men Type: BLOOD SPECIMENOrdering Facility: [facility] Address: [address] [place] [address] Performed By: #### 5 7021-8 ####[facility] LABCLIA [id number] [place] [address] [place] Differential cell count method Nom (Bld) Auto Normal [facility] Comment on above: Order Comment: Speci men Type: BLOOD SPECIMENOrdering Facility: [facility] Address: [address] [place] [address] Performed By: #### 5 7021-8 ####[facility] LABCLIA [id number] [place] [address] [place] Eosinophils (Bld) [#/Vol] 0.14 10*3/uL Normal <0.46 [facility] Comment on above: Order Comment: Speci men Type: BLOOD SPECIMENOrdering Facility: [facility] Address: [address] [place] [address] Performed By: #### 5 7021-8 ####[facility] LABCLIA [id number] [place] [address] [place] Eosinophils/100 WBC (Bld) 1.4 % Normal [facility] Comment on above: Order Comment: Speci men Type: BLOOD SPECIMENOrdering Facility: [facility] Address: [address] [place] [address] Performed By: #### 5 7021-8 ####[facility] LABIA [id number] [place] [address] [place] Erythrocyte distribution width (RBC) [Ratio] 12.9 % Normal 11.5-15.0 [facility] Comment on above: Order Comment: Speci men Type: BLOOD SPECIMENOrdering Facility: [facility] Address: [address] [place] [address] Performed By: #### 5 7021-8 ####[facility]IA [id number] [place] [address] [place] Hematocrit (Bld) [Volume fraction] 36.5 % Normal 36.0-46.0 [facility] Comment on above: Order Comment: Speci men Type: BLOOD SPECIMENOrdering Facility: [facility] Address: [address] [place] [address] Performed By: #### 5 7021-8 ####[facility]IA [id number] [place] [address] [place] Hemoglobin (Bld) [Mass/Vol] 11.7 g/dL Normal 11.5-15.5 [facility] Comment on above: Order Comment: Speci men Type: BLOOD SPECIMENOrdering Facility: [facility] Address: [address] [place] [address] Performed By: #### 5 7021-8 ####[facility] LABCLIA [id number] [place] [address] [place] Immature granulocytes (Bld) [#/Vol] 0.03 10*3/uL Normal <0.10 [facility] Comment on above: Order Comment: Speci men Type: BLOOD SPECIMENOrdering Facility: [facility] Address: [address] [place] [address] Performed By: #### 5 7021-8 ####[facility] LABCLIA [id number] [place] [address] [place] Immature granulocytes/100 WBC (Bld) 0.3 % Normal [facility] Comment on above: Order Comment: Speci men Type: BLOOD SPECIMENOrdering Facility: [facility] Address: [address] [place] [address] Performed By: #### 5 7021-8 ####[facility] LABIA [id number] [place] [address] [place] Lymphocytes (Bld) [#/Vol] 2.48 10*3/uL Normal 1.00-4.00 [facility] Comment on above: Order Comment: Speci men Type: BLOOD SPECIMENOrdering Facility: [facility] Address: [address] [place] [address] Performed By: #### 5 7021-8 ####[facility] LABCLIA [id number] [place] [address] [place] Lymphocytes/100 WBC (Bld) 25.2 % Normal [facility] Comment on above: Order Comment: Speci men Type: BLOOD SPECIMENOrdering Facility: [facility] Address: [address] [place] [address] Performed By: #### 5 7021-8 ####[facility] LABCLIA [id number] [place] [address] [place] MCH (RBC) [Entitic mass] 28.7 pg Normal 26.0-34.0 [facility] Comment on above: Order Comment: Speci men Type: BLOOD SPECIMENOrdering Facility: [facility] Address: [address] [place] [address] Performed By: #### 5 7021-8 ####[facility] LABCLIA [id number] [place] [address] [place] MCHC (RBC) [Mass/Vol] 32.1 g/dL Normal 30.5-36.0 [facility] Comment on above: Order Comment: Speci men Type: BLOOD SPECIMENOrdering Facility: [facility] Address: [address] [place] [address] Performed By: #### 5 7021-8 ####[facility] LABCLIA [id number] [place] [address] [place] MCV (RBC) [Entitic vol] 89.7 fL Normal 80.0-100.0 [facility] Comment on above: Order Comment: Speci men Type: BLOOD SPECIMENOrdering Facility: [facility] Address: [address] [place] [address] Performed By: #### 5 7021-8 ####[facility] LABCLIA [id number] [place] [address] [place] Monocytes (Bld) [#/Vol] 0.88 10*3/uL High <0.87 [facility] Comment on above: Order Comment: Speci men Type: BLOOD SPECIMENOrdering Facility: [facility] Address: [address] [place] [address] Performed By: #### 5 7021-8 ####[facility] LABCLIA [id number] [place] [address] [place] Monocytes/100 WBC (Bld) 8.9 % Normal [facility] Comment on above: Order Comment: Speci men Type: BLOOD SPECIMENOrdering Facility: [facility] Address: [address] [place] [address] Performed By: #### 5 7021-8 ####[facility] LABCLIA [id number] [place] [address] [place] Neutrophils (Bld) [#/Vol] 6.20 10*3/uL Normal 1.45-7.50 [facility] Comment on above: Order Comment: Speci men Type: BLOOD SPECIMENOrdering Facility: [facility] Address: [address] [place] [address] Performed By: #### 5 7021-8 ####[facility] LABCLIA [id number] [place] [address] [place] Neutrophils/100 WBC (Bld) 63.1 % Normal [facility] Comment on above: Order Comment: Speci men Type: BLOOD SPECIMENOrdering Facility: [facility] Address: [address] [place] [address] Performed By: #### 5 7021-8 ####[facility] LABCLIA [id number] [place] [address] [place] Nucleated RBC (Bld) [#/Vol] 10*3/uL Normal <0.01 [facility] Comment on above: Order Comment: Speci men Type: BLOOD SPECIMENOrdering Facility: [facility] Address: [address] [place] [address] Performed By: #### 5 7021-8 ####[facility] LABCLIA [id number] [place] [address] [place] Nucleated RBC/100 WBC (Bld) [Ratio] 0.0 /100 WBC Normal [facility] Comment on above: Order Comment: Speci men Type: BLOOD SPECIMENOrdering Facility: [facility] Address: [address] [place] [address] Performed By: #### 5 7021-8 ####[facility] LABCLIA [id number] [place] [address] [place] Platelet mean volume (Bld) [Entitic vol] 10.7 fL Normal 9.0-12.7 [facility] Comment on above: Order Comment: Speci men Type: BLOOD SPECIMENOrdering Facility: [facility] Address: [address] [place] [address] Performed By: #### 5 7021-8 ####[facility] LABCLIA [id number] [place] [address] [place] Platelets (Bld) [#/Vol] 406 10*3/uL High 150-400 [facility] Comment on above: Order Comment: Speci men Type: BLOOD SPECIMENOrdering Facility: [facility] Address: [address] [place] [address] Performed By: #### 5 7021-8 ####[facility] LABIA [id number] [place] [address] [place] RBC (Bld) [#/Vol] 4.07 10*6/uL Normal 3.90-5.20 [facility] Comment on above: Order Comment: Speci men Type: BLOOD SPECIMENOrdering Facility: [facility] Address: [address] [place] [address] Performed By: #### 5 7021-8 ####[facility] LABIA [id number] [place] [address] [place] WBC (Bld) [#/Vol] 9.84 10*3/uL Normal 3.70-11.00 [facility] Comment on above: Order Comment: Speci men Type: BLOOD SPECIMENOrdering Facility: [facility] Address: [address] [place] [address] Performed By: #### 5 7021-8 ####[facility] LABIA [id number] [place] [address] [place] CNOVon 12-01-2023 [facility] MONISHA FITZPATRICK ([id number]) 1945 F Date Time Provider Department 12/01/23 9:40 AM DEONTE HAMM During your visit today, we recorded the following information about you: Pulse Respiration Blood pressure Weight 97/minute 16/minute 128/70 68.5 kg Deonte Hamm MD 12/06/2023 9:40 AM Signed Chief Complaint Patient presents with: Follow Up: 6 month HPI Monisha Fitzpatrick is a 78 year old female who presents here today for Above Complaints. DIABETES MELLITUS: Ms. Fitzpatrick was last seen 6 months ago. Since our last visit she denies excessive thirst or increased frequency of urination, numbness, tingling or pain in extremities, new or unusual visual symptoms, and low sugar/hypoglycemic reactions. Follows a diabetic diet most of the time. She is compliant with medication(s) and is tolerating med(s) without any side effects. She reports checking her glucose on a once a day schedule with sugars in the fasting <120 range. Patient's last HgA1C was Hemoglobin A1C (%) Date Value 05/26/2023 6.2 11/25/2022 6.2 10/11/2020 6.7 04/16/2020 6.6 ) Last Ophthalmology exam was within the past 1 month. Received records from [facility] with stable edema in both eyes. Will continue Eylea for left eye for 10 weeks. Last Podiatry exam was within the past 12 months BP well controlled today on current regimen without lightheadedness/dizzin ess. BP at home at typically similar to today's reading. Up to date on flu vaccine. Requesting COVID vaccine today. Past medical history, appointments, medications, allergies reviewed. Previous Medical History PAST MEDICAL HISTORY Diagnosis Date Aortic ejection murmur 04/06/2014 Arthritis of both knees 01/14/2017 Diabetes mellitus with macular edema, both eyes ([facility]) 02/23/2013 Dr. OlivaDr. Correa-optho Esophageal reflux External hemorrhoids without mention of complication Hearing aid worn Hyperlipidemia LDL goal <100 11/22/2015 Internal hemorrhoids without mention of complication Laryngospasm epi pen 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) 02/23/2013 PMH - PAST MEDICAL HISTORY OF change in bowel habits PMH - PAST MEDICAL HISTORY OF breathing shut down of and on Renal cyst 12/25/2015 right renal cyst Retinal edema 01/23/2014 Left eye - See scanned documents Retinal hemorrhage 07/19/2010 Unspecified constipation Unspecified essential hypertension Vasomotor rhinitis 04/06/2014 Venous (peripheral) insufficiency 08/13/2011 White coat hypertension 05/01/2013 Previous Surgical History PAST SURGICAL HISTORY Procedure Laterality Date CATARACT EXTRACTION HX Bilateral 10/2018, 09/2020 COLONOSCOPY FLX DX W/COLLJ SPEC WHEN PFRMD 08/21/2005 Repeat in FNA WITH IMAGING Right 12/06/2015 U/S FNA right groin PAST SURGICAL HISTORY OF CHILD TONSILS PAST SURGICAL HISTORY OF Left laser surgery to left eye SCREENING COLONSCOPY NOT HIGH RISK 02/2016 normal Family History FAMILY HISTORY Problem Relation Age of Onset other (gallbladder problems) Mother ulcers/stomach problems Emphysema Father ulcers Coronary Artery Disease Father Diabetes Paternal Grandmother Diabetes Paternal Aunt Diabetes Paternal Uncle Diabetes Maternal Uncle Patient Allergies ALLERGIES Allergen Reactions Lisinopril Swelling angioedema Doxycycline GI Upset Nausea w/o vomiting, bad taste Penicillin G Prednisone JITTERY Sulfa (Sulfonamide * Current Medications Current Outpatient Medications on File Prior to Visit Medication Sig amLODIPine (NORVASC) 10 mg tablet Take 1 tablet by mouth once daily. metFORMIN (GLUCOPHAGE) 500 mg tablet Take 2 tablets by mouth two times a day with meals. . losartan (COZAAR) 100 mg tablet Take 1 tablet by mouth once daily. hydroCHLOROthiazide 12.5 mg capsule Take 1 capsule by mouth once daily. atorvastatin (LIPITOR) 20 mg tablet Take 1 tablet by mouth daily at bedtime. For cholesterol. EPINEPHrine (EPIPEN) 0.3 mg/0.3 mL auto-injector 0.3 ml subcutaneously as needed for hypersensitivity reaction fluticasone (FLONASE) 50 mcg/actuation nasal spray Use 2 Sprays in each nostril once daily. ONE TO TWO SPRAYS TO EACH NOSTRIL ONCE DAILY blood sugar diagnostic (ACCU-CHEK FAISAL) test strip Test blood sugar(s) one time daily. Dx: E11.9. Insulin: No albuterol HFA (VENTOLIN HFA) 90 mcg/actuation inhaler Inhale 2 Puffs as instructed every 4 hours as needed for wheezing/shortness of breath. Lancing Device with Lancets (ACCU-CHEK FASTCLIX LANCING DEV) 1 Each as directed. Use as directed. DX: E11.9, Insulin: No Lancets (ACCU-CHEK MULTICLIX LANCET) lancets 1 Each as directed. daily. Use as instructed. Dx 250.00 No insulin ibuprofen (MOTRIN) 400 mg tablet Take 1 tablet by mouth twice daily as needed for Pain. docusate sodium (CO (more content not included)... Normal [facility] metabolic 2000 panelon 12-01-2023 Albumin [Mass/Vol] 4.4 g/dL 3.9 - 4.9 g/dL [facility] ALP [Catalytic activity/Vol] 72 U/L 34 - 123 U/L [facility] ALT [Catalytic activity/Vol] 11 U/L 7 - 38 U/L [facility] Anion gap [Moles/Vol] 11 mmol/L 8 - 15 mmol/L [facility] AST [Catalytic activity/Vol] 20 U/L 13 - 35 U/L [facility] Bilirubin [Mass/Vol] 0.4 mg/dL 0.2 - 1 .3 mg/dL [facility] Calcium [Mass/Vol] 10.3 mg/dL High 8.5 - 10. 2 mg/dL [facility] Chloride [Moles/Vol] 101 mmol/L 98 - 10 7 mmol/L [facility] CO2 [Moles/Vol] 28 mmol/L 22 - 30 mmol/L [facility] Creatinine [Mass/Vol] 0.83 mg/dL 0.58 - 0.96 mg/dL [facility] GFR/1.73 sq M.predicted among non-blacks MDRD (S/P/Bld) [Vol rate/Area] 72 mL/min/{1.73_m2} - PINF [facility] Comment on above: Estimated Glomerular Filtration Rate (eGFR) is calculated using the 2020 CKD-EPI creatinine equation. This equation utilizes serum creatinine, sex, and age as parameters. The creatinine assay has traceable calibration to isotope dilution-mass spectrometry. Refer to KDIGO guidelines for clinical interpretation. In patients with unstable renal function, e.g. those with acute kidney injury, the eGFR may not accurately reflect actual GFR. Glucose [Mass/Vol] 77 mg/dL 74 - 99 mg/dL [facility] Comment on above: The [place] Diabete s Association (ADA) provides guidance for cutoff values for fasting glucose and random glucose. The ADA defines fasting as no caloric intake for at least 8 hours. Fasting plasma glucose results between 100 to 125 mg/dL indicate increased risk for diabetes (prediabetes). Fasting plasma glucose results greater than or equal to 126 mg/dL meet the criteria for diagnosis of diabetes. In the absence of unequivocal hyperglycemia, results should be confirmed by repeat testing. In a patient with classic symptoms of hyperglycemia or hyperglycemic crisis, random plasma glucose results greater than or equal to 200 mg/dL meet the criteria for diagnosis of diabetes. Reference: Standards of Medical Care in Diabetes 2016, [place] Diabetes Association. Diabetes Care. 2016.39(Suppl 1). Interpretation and review of laboratory results Abnormal [facility] Potassium [Moles/Vol] 3.9 mmol/L 3.7 - 5.1 mmol/L [facility] Protein [Mass/Vol] 7.5 g/dL 6.3 - 8.0 g/dL [facility] Sodium [Moles/Vol] 140 mmol/L 136 - 144 mmol/L [facility] Urea nitrogen [Mass/Vol] 32 mg/dL High 7 - 21 mg/dL [facility] Albumin [Mass/Vol] 4.4 g/dL Normal 3.9-4.9 [facility] Comment on above: Order Comment: Remi bustamante Type: BLOOD SPECIMENOrdering Facility: [facility] Address: [address] [place] [address] Performed By: #### 2 4323-8, LIPNF ####[facility] LABCLIA [id number] [place] [address] [place] ALP [Catalytic activity/Vol] 72 U/L Normal 34-123 [facility] Comment on above: Order Comment: Remi bustamante Type: BLOOD SPECIMENOrdering Facility: [facility] Address: [address] [place] [address] Performed By: #### 2 4323-8, LIPNF ####[facility] LABCLIA [id number] [place] [id number] [place] ALT [Catalytic activity/Vol] 11 U/L Normal 7-38 [facility] Comment on above: Order Comment: Speci men Type: BLOOD SPECIMENOrdering Facility: [facility] Address: [address] [place] [address] Performed By: #### 2 4323-8, LIPNF ####[facility] LABCLIA [id number] [place] [address] [place] Anion gap [Moles/Vol] 11 mmol/L Normal 8-15 [facility] Comment on above: Order Comment: Speci men Type: BLOOD SPECIMENOrdering Facility: [facility] Address: [address] [place] [address] Performed By: #### 2 4323-8, LIPNF ####[facility] LABCLIA [id number] [place] [address] [place] AST [Catalytic activity/Vol] 20 U/L Normal 13-35 [facility] Comment on above: Order Comment: Speci men Type: BLOOD SPECIMENOrdering Facility: [facility] Address: [address] [place] [address] Performed By: #### 2 4323-8, LIPNF ####[facility] LABCLIA [id number] [place] [address] [place] Bilirubin [Mass/Vol] 0.4 mg/dL Normal 0.2-1.[address] [facility] Comment on above: Order Comment: Speci men Type: BLOOD SPECIMENOrdering Facility: [facility] Address: [address] [place] [address] Performed By: #### 2 4323-8, LIPNF ####[facility] LABCLIA [id number] [place] [address] [place] Calcium [Mass/Vol] 10.3 mg/dL High 8.5-10.2 [facility] Comment on above: Order Comment: Speci men Type: BLOOD SPECIMENOrdering Facility: [facility] Address: [address] [place] [address] Performed By: #### 2 4323-8, LIPNF ####[facility] LABCLIA [id number] [address] [address] [place] Chloride [Moles/Vol] 101 mmol/L Normal 98-[address] [facility] Comment on above: Order Comment: Speci men Type: BLOOD SPECIMENOrdering Facility: [facility] Address: [address] [place] [address] Performed By: #### 2 4323-8, LIPNF ####[facility] LABCLIA [id number] [place] [address] [place] CO2 [Moles/Vol] 28 mmol/L Normal 22-30 [facility] Comment on above: Order Comment: Speci men Type: BLOOD SPECIMENOrdering Facility: [facility] Address: [address] [place] [address] Performed By: #### 2 4323-8, LIPNF ####[facility] LABCLIA [id number] [place] [address] [place] Creatinine [Mass/Vol] 0.83 mg/dL Normal 0.58-0.96 [facility] Comment on above: Order Comment: Speci men Type: BLOOD SPECIMENOrdering Facility: [facility] Address: [address] [place] [address] Performed By: #### 2 4323-8, LIPNF ####[facility] LABCLIA [id number] [place] [address] [place] Creatinine and Glomerular filtration rate.predicted panel (S/P/Bld) 72 mL/min/1.73m??? Normal >=60 [facility] Comment on above: Order Comment: Speci men Type: BLOOD SPECIMENOrdering Facility: [facility] Address: [address] [place] [address] Result Comment: Kaitlin mated Glomerular Filtration Rate (eGFR) is calculated using the 2020 CKD-EPI creatinine equation. This equation utilizes serum creatinine, sex, and age as parameters. The creatinine assay has traceable calibration to isotope dilution-mass spectrometry. Refer to KDIGO guidelines for clinical interpretation. In patients with unstable renal function, e.g. those with acute kidney injury, the eGFR may not accurately reflect actual GFR. Performed By: #### 2 4323-8, LIPNF ####[facility] LABCLIA [id number] [place] [address] [place] Glucose [Mass/Vol] 77 mg/dL Normal 74-99 [facility] Comment on above: Order Comment: Speci men Type: BLOOD SPECIMENOrdering Facility: [facility] Address: [address] [place] [address] Result Comment: The [place] Diabetes Association (ADA) provides guidance for cutoff values for fasting glucose and random glucose. The ADA defines fasting as no caloric intake for at least 8 hours. Fasting plasma glucose results between 100 to 125 mg/dL indicate increased risk for diabetes (prediabetes). Fasting plasma glucose results greater than or equal to 126 mg/dL meet the criteria for diagnosis of diabetes. In the absence of unequivocal hyperglycemia, results should be confirmed by repeat testing. In a patient with classic symptoms of hyperglycemia or hyperglycemic crisis, random plasma glucose results greater than or equal to 200 mg/dL meet the criteria for diagnosis of diabetes. Reference: Standards of Medical Care in Diabetes 2016, [place] Diabetes Association. Diabetes Care. 2016.39(Suppl 1). Performed By: #### 2 4323-8, LIPNF ####[facility] LABCLIA [id number] [place] [address] [place] Potassium [Moles/Vol] 3.9 mmol/L Normal 3.7-5.1 [facility] Comment on above: Order Comment: Speci men Type: BLOOD SPECIMENOrdering Facility: [facility] Address: [address] [place] [address] Performed By: #### 2 4323-8, LIPNF ####[facility] LABCLIA [id number] [place] [address] [place] Protein [Mass/Vol] 7.5 g/dL Normal 6.3-8.0 [facility] Comment on above: Order Comment: Speci men Type: BLOOD SPECIMENOrdering Facility: [facility] Address: [address] [place] [address] Performed By: #### 2 4323-8, LIPNF ####[facility] LABCLIA [id number] [place] [address] [place] Sodium [Moles/Vol] 140 mmol/L Normal 136-144 [facility] Comment on above: Order Comment: Speci men Type: BLOOD SPECIMENOrdering Facility: [facility] Address: [address] [place] [address] Performed By: #### 2 4323-8, LIPNF ####[facility] LABCLIA [id number] [place] [address] [place] Urea nitrogen [Mass/Vol] 32 mg/dL High 7-21 [facility] Comment on above: Order Comment: Speci men Type: BLOOD SPECIMENOrdering Facility: [facility] Address: [address] [place] [address] Performed By: #### 2 4323-8, LIPNF ####[facility] LABCLIA [id number] [place] [address] [place] HbA1c (Bld)on 12-01-2023 Average glucose Estimated from glycated hemoglobin (Bld) [Mass/Vol] 128 mg/dL [facility] Comment on above: eAG: (Estimated aver age glucose) is a calculated value from HgbA1c and is customer counter representative of the average blood glucose level in the last 2-3 month period. HbA1c (Bld) [Mass fraction] 6.1 % High 4.3 - 5.6 % [facility] Comment on above: [place] Diabetes As sociation guidelines indicate that patients with HgbA1c in the range 5.7-6.4% are at increased risk for development of diabetes, and intervention by lifestyle modification may be beneficial. HgbA1c greater or equal to 6.5% is considered diagnostic of diabetes. Interpretation and review of laboratory results Abnormal [facility] Average glucose Estimated from glycated hemoglobin (Bld) [Mass/Vol] 128 mg/dL Normal [facility] Comment on above: Order Comment: Remi bustamante Type: BLOOD SPECIMENOrdering Facility: [facility] Address: [address] [place] [address] Result Comment: eAG: (Estimated average glucose) is a calculated value from HgbA1c and is customer counter representative of the average blood glucose level in the last 2-3 month period. Performed By: #### 5 5454-3 ####[facility] LABCLIA [id number] [place] [address] [place] HbA1c (Bld) [Mass fraction] 6.1 % High 4.3-5.6 [facility] Comment on above: Order Comment: Remi bustamante Type: BLOOD SPECIMENOrdering Facility: [facility] Address: [address] [place] [address] Result Comment: [place] Diabetes Association guidelines indicate that patients with HgbA1c in the range 5.7-6.4% are at increased risk for development of diabetes, and intervention by lifestyle modification may be beneficial. HgbA1c greater or equal to 6.5% is considered diagnostic of diabetes. Performed By: #### 5 5454-3 ####[facility] LABCLIA [id number] [place] [address] [place] LIPID PANEL, NONFASTINGon Cholesterol [Mass/Vol] 162 mg/dL NINF - 200 mg/dL [facility] Comment on above: <200 mg/dL, Desirabl e 200-239 mg/dL, Borderline high >239 mg/dL, High HDL Cholesterol, Nonfasting 72 mg/dL 39 - PINF mg/dL [facility] Comment on above: 40-59 mg/dL, Accepta ble >59 mg/dL, High: Negative risk factor for coronary heart disease <40 mg/dL, Low: Positive risk factor for coronary heart disease Interpretation and review of laboratory results Normal [facility] LDL Cholesterol, Nonfasting 69 mg/dL NINF - 100 mg/dL [facility] Comment on above: <100 mg/dL, Optimal 100-129 mg/dL, Near optimal/above optimal 130-159 mg/dL, Borderline high 160-189 mg/dL, High >189 mg/dL, Very high Secondary prevention optimal LDL Cholesterol levels are recommended to be < 70 mg/dL LDL/HDL Ratio, Nonfasting 0.96 mg/dL NINF - 2.54 mg/dL [facility] Comment on above: Reference: 1. National Cholesterol Education Program ATP III Guideline At-A-Glance Quick Desk Reference: National Heart, Lung, and Blood [place]. National Institutes of Health. 2001: NIH Publication No. 01-3305. 2. An International Atherosclerosis Society position paper: global recommendations for the management of dyslipidemia: executive summary, Atherosclerosis. 2014: 232(2):410-413. Non HDL Cholesterol, Nonfasting 90 mg/dL NINF - 130 mg/dL [facility] Comment on above: <130 mg/dL, Optimal 130-159 mg/dL, Near optimal/above optimal 160-189 mg/dL, Borderline high 190-219 mg/dL, High >219 mg/dL, Very high Secondary prevention optimal non HDL Cholesterol levels are recommended to be <100 mg/dL Total Chol/HDL Ratio, Nonfasting 2.25 mg/dL NINF - 5.10 mg/dL [facility] Triglycerides, Nonfasting 105 mg/dL NINF - 150 mg/dL [facility] Comment on above: <150 mg/dL, Normal 150-199 mg/dL, Borderline high 200-499 mg/dL, High >499 mg/dL, Very high VLDL Cholesterol, Nonfasting 21 mg/dL NINF - 30 mg/dL [facility] Cholesterol [Mass/Vol] 162 mg/dL Normal <200 [facility] Comment on above: Order Comment: Speci men Type: BLOOD SPECIMENOrdering Facility: [facility] Address: [address] [place] [address] Result Comment: <200 mg/dL, Desirable 200-239 mg/dL, Borderline high >239 mg/dL, High Performed By: #### 2 4323-8, LIPNF ####[facility] LABCLIA [id number] [place] [id number] [place] [address] HDL CHOLESTEROL, NF 72 mg/dL Normal >39 [facility] Comment on above: Order Comment: Remi robby Type: BLOOD SPECIMENOrdering Facility: [facility] Address: [address] [place] [address] Result Comment: 40-5 9 mg/dL, Acceptable >59 mg/dL, High: Negative risk factor for coronary heart disease <40 mg/dL, Low: Positive risk factor for coronary heart disease Performed By: #### 2 4323-8, LIPNF ####[facility] LABCLIA [id number] [address] LDL CHOLESTEROL, NF 69 mg/dL Normal <100 [facility] Comment on above: Order Comment: Remi robby Type: BLOOD SPECIMENOrdering Facility: [facility] Address: [address] [place] [address] Result Comment: <100 mg/dL, Optimal 100-129 mg/dL, Near optimal/above optimal 130-159 mg/dL, Borderline high 160-189 mg/dL, High >189 mg/dL, Very high Secondary prevention optimal LDL Cholesterol levels are recommended to be < 70 mg/dL Performed By: #### 2 4323-8, LIPNF ####[facility] LABCLIA [id number] [address] LDL/HDL RATIO, NF 0.96 mg/dL Normal <2.54 [facility] Comment on above: Order Comment: Carlos Ajorje bustamante Type: BLOOD SPECIMENOrdering Facility: [facility] Address: [address] [place] [address] Result Comment: Refe rence: 1. National Cholesterol Education Program ATP III Guideline At-A-Glance Quick Desk Reference: National Heart, Lung, and Blood [place]. National Institutes of Health. 2001: NIH Publication No. 01-3305. 2. An International Atherosclerosis Society position paper: global recommendations for the management of dyslipidemia: executive summary, Atherosclerosis. 2014: 232(2):410-413. Performed By: #### 2 4323-8, LIPNF ####[facility] LABCLIA [id number] [place] [address] [place] NON HDL CHOL, NF 90 mg/dL Normal <130 [facility] Comment on above: Order Comment: Speci men Type: BLOOD SPECIMENOrdering Facility: [facility] Address: [address] [place] [address] Result Comment: <130 mg/dL, Optimal 130-159 mg/dL, Near optimal/above optimal 160-189 mg/dL, Borderline high 190-219 mg/dL, High >219 mg/dL, Very high Secondary prevention optimal non HDL Cholesterol levels are recommended to be <100 mg/dL Performed By: #### 2 4323-8, LIPNF ####[facility] LABCLIA [id number] [place] [address] [place] T CHOL/HDL RATIO NF 2.25 mg/dL Normal <5.10 [facility] Comment on above: Order Comment: Speci men Type: BLOOD SPECIMENOrdering Facility: [facility] Address: [address] [place] [address] Performed By: #### 2 4323-8, LIPNF ####[facility] LABCLIA [id number] [place] [address] [place] TRIGLYCERIDES, NF 105 mg/dL Normal <150 [facility] Comment on above: Order Comment: Speci men Type: BLOOD SPECIMENOrdering Facility: [facility] Address: [address] [place] [address] Result Comment: <150 mg/dL, Normal 150-199 mg/dL, Borderline high 200-499 mg/dL, High >499 mg/dL, Very high Performed By: #### 2 4323-8, LIPNF ####[facility] LABCLIA [id number] [place] [address] [place] VLDL CHOLESTEROL, NF 21 mg/dL Normal <[address] [facility] Comment on above: Order Comment: Speci men Type: BLOOD SPECIMENOrdering Facility: [facility] Address: [address] [place] [id number] Performed By: #### 2 4323-8, LIPNF ####[facility] LABCLIA [id number] [facility] [id number] [id number] [place] No Panel Informationon 11-30 [facility] CNPNon 10-22-2023 CNPN Telephone (FAMPWS) MONISHA FITZPATRICK ([id number]) 1945 F Date Time Provider Department 10/22/23 [facility] During your visit today, we recorded the following information about you: Nika Rodriguez RN 10/22/2023 2:12 PM Signed Patient requesting PCP place order for yearly mammogram screening, if it is advised for her. Please call patient with update. Thank you. Deonte Hamm MD 10/23/2023 7:53 AM Signed We typically stop breast cancer screening at age 75, but if she would like to continue, will place order. Em Sommer LPN 10/25/2023 9:33 AM Signed Patient telephoned. Message left to call office back for update. ASHANTI Azevedo Kathryn, MA 10/26/2023 8:57 AM Signed Pt notified. She will think about it and call back. Yumiko Vaz MA Allergies As of Date: 10/22/2023 Noted Allergy Reaction LISINOPRIL 02/06/2012 7 - Swelling Comments: angioedema DOXYCYCLINE 05/18/2017 8 - GI Upset Comments: Nausea w/o vomiting, bad taste PENICILLIN G 01/05/2005 PREDNISONE 01/07/2005 Comments: JITTERY SULFA (SULFONAMIDE ANTIBIOTICS) 01/05/2005 Date Reviewed: 05/26/2023 Reviewed by: Em Sommer LPN - Fully Assessed Reason for Visit: Orders [681] Primary Visit Diagnosis:Screening mammogram for breast cancer [Z12.31] Prescriptions as of 11/23/2023 - amLODIPine (NORVASC) 10 mg tablet Take 1 tablet by mouth once daily. - metFORMIN (GLUCOPHAGE) 500 mg tablet Take 2 tablets by mouth two times a day with meals. . - losartan (COZAAR) 100 mg tablet Take 1 tablet by mouth once daily. - hydroCHLOROthiazide 12.5 mg capsule Take 1 capsule by mouth once daily. - atorvastatin (LIPITOR) 20 mg tablet Take 1 tablet by mouth daily at bedtime. For cholesterol. - EPINEPHrine (EPIPEN) 0.3 mg/0.3 mL auto-injector 0.3 ml subcutaneously as needed for hypersensitivity reaction - fluticasone (FLONASE) 50 mcg/actuation nasal spray Use 2 Sprays in each nostril once daily. ONE TO TWO SPRAYS TO EACH NOSTRIL ONCE DAILY - blood sugar diagnostic (ACCU-CHEK FAISAL) test strip Test blood sugar(s) one time daily. Dx: E11.9. Insulin: No - albuterol HFA (VENTOLIN HFA) 90 mcg/actuation inhaler Inhale 2 Puffs as instructed every 4 hours as needed for wheezing/shortness of breath. - Lancing Device with Lancets (ACCU-CHEK FASTCLIX LANCING DEV) 1 Each as directed. Use as directed. DX: E11.9, Insulin: No - aflibercept opthalmic intravitreal (EYLEA) 2 mg/0.05 mL soln Use 0.05 mL in the left eye one time only for 1 dose. - Lancets (ACCU-CHEK MULTICLIX LANCET) lancets 1 Each as directed. daily. Use as instructed. Dx 250.00 No insulin - ibuprofen (MOTRIN) 400 mg tablet Take 1 tablet by mouth twice daily as needed for Pain. - docusate sodium (COLACE) 100 mg capsule Take 100 mg by mouth twice daily. - psyllium seed/sucrose(METAMUCIL SMOOTH TEXTURE 28 % PACKET) twicw daily - CALCIUM 600 + D 600 MG-125 UNIT TAB Take one(1) tablet two(2) times daily. Problem List As Of Date 10/22/2023 Noted Resolved HYPERLIPIDEMIA NEC/NOS [E78.5] 05/12/2005 11/16/2014 BENIGN HYPERTENSION [I10] 05/12/2005 External hemorrhoids without mention of complic* 03/08/2014 Internal hemorrhoids without mention of complic* 03/08/2014 Type II or unspecified type diabetes mellitus w*10/10/2007 02/23/2013 LUMB DISC DIS W MYELOPAT [M51.06] 11/17/2007 VOCAL CORD DISEASE NEC [J38.3] 11/17/2007 Retinal hemorrhage [H35.60] 07/19/2010 01/13/2018 Venous (peripheral) insufficiency [I87.2] 08/13/2011 Nonproliferative diabetic retinopathy of both e*02/23/2013 Diabetes mellitus with macular edema, both eyes*02/23/2013 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 ALP [Catalytic activity/Vol] 76 U/L 34 - 123 U/L [facility] ALT [Catalytic activity/Vol] 11 U/L 7 - 38 U/L [facility] Anion gap [Moles/Vol] 13 mmol/L 9 - 18 mmol/L [facility] AST [Catalytic activity/Vol] 18 U/L 13 - 35 U/L [facility] Bilirubin [Mass/Vol] 0.3 mg/dL 0.2 - 1 .3 mg/dL [facility] Calcium [Mass/Vol] 10.6 mg/dL High 8.5 - 10. 2 mg/dL [facility] Chloride [Moles/Vol] 98 mmol/L 97 - 10 5 mmol/L [facility] CO2 [Moles/Vol] 27 mmol/L 22 - 30 mmol/L [facility] Creatinine [Mass/Vol] 0.72 mg/dL 0.58 - 0.96 mg/dL [facility] Estimated Glomerular Filtration Rate 86 mL/min/1.73m >=60 mL/min/1.73m [facility] Glucose [Mass/Vol] 93 mg/dL 74 - 99 mg/dL [facility] Potassium [Moles/Vol] 3.8 mmol/L 3.7 - 5.1 mmol/L [facility] Protein [Mass/Vol] 7.7 g/dL 6.3 - 8.0 g/dL [facility] Sodium [Moles/Vol] 138 mmol/L 136 - 144 mmol/L [facility] Urea nitrogen [Mass/Vol] 27 mg/dL High 7 - 21 mg/dL [facility] HbA1c (Bld)on 05-26-2023 Average glucose Estimated from glycated hemoglobin (Bld) [Mass/Vol] 131 mg/dL [facility] HbA1c (Bld) [Mass fraction] 6.2 % High 4.3 - 5.6 % [facility] Comprehensive metabolic 2000 panelon 11-25-2022 Albumin [Mass/Vol] 4.1 g/dL 3.9 - 4.9 g/dL [facility] ALP [Catalytic activity/Vol] 79 U/L 34 - 123 U/L [facility] ALT [Catalytic activity/Vol] 13 U/L 7 - 38 U/L [facility] Anion gap [Moles/Vol] 13 mmol/L 9 - 18 mmol/L [facility] AST [Catalytic activity/Vol] 19 U/L 13 - 35 U/L [facility] Bilirubin [Mass/Vol] 0.4 mg/dL 0.2 - 1 .3 mg/dL [facility] Calcium [Mass/Vol] 10.2 mg/dL 8.5 - 10. 2 mg/dL [facility] Chloride [Moles/Vol] 101 mmol/L 97 - 10 5 mmol/L [facility] CO2 [Moles/Vol] 27 mmol/L 22 - 30 mmol/L [facility] Creatinine [Mass/Vol] 0.70 mg/dL 0.58 - 0.96 mg/dL [facility] Estimated Glomerular Filtration Rate 89 mL/min/1.73m >=60 mL/min/1.73m [facility] Glucose [Mass/Vol] 87 mg/dL 74 - 99 mg/dL [facility] Potassium [Moles/Vol] 4.1 mmol/L 3.7 - 5.1 mmol/L [facility] Protein [Mass/Vol] 7.6 g/dL 6.3 - 8.0 g/dL [facility] Sodium [Moles/Vol] 141 mmol/L 136 - 144 mmol/L [facility] Urea nitrogen [Mass/Vol] 25 mg/dL High 7 - 21 mg/dL [facility] HbA1c (Bld)on 11-25-2022 Average glucose Estimated from glycated hemoglobin (Bld) [Mass/Vol] 131 mg/dL [facility] HbA1c (Bld) [Mass fraction] 6.2 % High 4.3 - 5.6 % [facility] LIPID PANEL, NONFASTINGon Cholesterol [Mass/Vol] 155 mg/dL <200 mg/dL [facility] HDL Cholesterol, Nonfasting 65 mg/dL >39 mg/dL [facility] LDL Cholesterol, Nonfasting 70 mg/dL <100 mg/dL [facility] LDL/HDL Ratio, Nonfasting 1.08 mg/dL <2.54 mg/dL [facility] Non HDL Cholesterol, Nonfasting 90 mg/dL <130 mg/dL [facility] Total Chol/HDL Ratio, Nonfasting 2.38 mg/dL <5.10 mg/dL [facility] Triglycerides, Nonfasting 101 mg/dL <150 mg/dL [facility] VLDL Cholesterol, Nonfasting 20 mg/dL <30 mg/dL [facility] GAVIN SCREENINGon 10-23-2022 [facility] XR KNEE LIMITED 2V AP/LAT LE FTon 06-03-2022 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 Facilities Custodian: PSCB Transcribe Date/Time: Jun 03 2022 5:08P Dictated by : AYAZ COVARRUBIAS DO This examination was interpreted and the report reviewed and electronically signed by: AYAZ COVARRUBIAS DO on Jun 03 2022 5:11PM [facility] [email or web address]] DIVISION OF RADIOLOGY * * *Final Report* * * DATE OF EXAM: Jun 03 2022 10:36AM WOX [id number] - XR KNEE 2V AP/LAT LT / PROCEDURE REASON: multiple diagnoses * * * * Physician Interpretation * * * * EXAMINATION: XR KNEE 2V AP/LAT LT PATIENT/TECHNOLOGIST PROVIDED HISTORY: pain in left knee for years, getting worse nora. with stairs. Pain is medial side no inj CLINICAL INFORMATION: 76 years old Female with Chronic pain of left knee. Arthritis of both knees. Laxity of knee joint, left. TECHNIQUE: XR KNEE 2V AP/LAT LT Laterality: LEFT Number of different views (projections): 2 COMPARISON: Radiographs 07/25/2016, 11/07/2015 RESULT: Tricompartmental osteoarthritis, severe in the medial and lateral compartments with [id number] contact progressed in the lateral compartment compared to 07/25/2016. Genu varus. Small joint effusion. No fracture. Atherosclerotic calcifications. Images of the RIGHT knee demonstrate moderate-severe medial and lateral compartment osteoarthritis with chondrocalcinosis, progressed compared to 11/07/2015. DIVISION OF RADIOLOGY Provider, [facility] - 06/03/2022 * * *Final Report* * * DATE OF EXAM: Jun 03 2022 10:36AM WOX 5206 - XR KNEE 2V AP/LAT LT / PROCEDURE REASON: multiple diagnoses * * * * Physician Interpretation * * * * EXAMINATION: XR KNEE 2V AP/LAT LT PATIENT/TECHNOLOGIST PROVIDED HISTORY: pain in left knee for years, getting worse nora. with stairs. Pain is medial side no inj CLINICAL INFORMATION: 76 years old Female with Chronic pain of left knee. Arthritis of both knees. Laxity of knee joint, left. 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 Genu varus. Small joint effusion. No fracture. Atherosclerotic calcifications. Images of the RIGHT knee demonstrate moderate-severe medial and lateral compartment osteoarthritis with chondrocalcinosis, progressed compared to 11/07/2015. 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 Facilities Custodian: SHANNON Transcribe Date/Time: Jun 03 2022 5:08P Dictated by : AYAZ COVARRUBIAS DO This examination was interpreted and the report reviewed and electronically signed by: AYAZ COVARRUBIAS DO on Jun 03 2022 5:11PM EST [facility] Radiology Study observation (narrative) Martha Hadley XR Knee - left AP and Latera lOrdered By: [facility] Provider on 06-03-2022 [facility] HEP C AB IA W/CONF SCRNon HCV Ab Ql (S) Negative Negative [facility] HGB A1Con 04-22-2021 Average glucose Estimated from glycated hemoglobin (Bld) [Mass/Vol] 134 mg/dL [facility] HbA1c (Bld) [Mass fraction] 6.3 % High 4.3 - 5.6 % [facility] Comprehensive metabolic 2000 panelon 04-21-2021 Albumin [Mass/Vol] 4.4 g/dL 3.9 - 4.9 g/dL [facility] ALP [Catalytic activity/Vol] 79 U/L 34 - 123 U/L [facility] ALT [Catalytic activity/Vol] 12 U/L 7 - 38 U/L [facility] Anion gap [Moles/Vol] 10 mmol/L 9 - 18 mmol/L [facility] AST [Catalytic activity/Vol] 18 U/L 13 - 35 U/L [facility] Bilirubin [Mass/Vol] 0.3 mg/dL 0.2 - 1 .3 mg/dL [facility] Calcium [Mass/Vol] 10.5 mg/dL High 8.5 - 10. 2 mg/dL [facility] Chloride [Moles/Vol] 99 mmol/L 97 - 10 5 mmol/L [facility] CO2 [Moles/Vol] 30 mmol/L 22 - 30 mmol/L [facility] Creatinine [Mass/Vol] 0.55 mg/dL Low 0.58 - 0.96 mg/dL [facility] Estimated Glomerular Filtration Rate 96 mL/min/1.73m >=60 mL/min/1.73m [facility] Glucose [Mass/Vol] 89 mg/dL 74 - 99 mg/dL [facility] Potassium [Moles/Vol] 4.1 mmol/L 3.7 - 5.1 mmol/L [facility] Protein [Mass/Vol] 7.8 g/dL 6.3 - 8.0 g/dL [facility] Sodium [Moles/Vol] 139 mmol/L 136 - 144 mmol/L [facility] Urea nitrogen [Mass/Vol] 25 mg/dL High 7 - 21 mg/dL [facility] CBC panel Auto (Bld)on 10-11 Absolute nRBC <0.01 <0.01 k/uL [facility] Erythrocyte distribution width (RBC) [Ratio] 13.0 % 11.5 - 15.0 % [facility] Hematocrit (Bld) [Volume fraction] 39.5 % 36.0 - 46.0 % [facility] Hemoglobin (Bld) [Mass/Vol] 13.0 g/dL 11.5 - 15.5 g/dL [facility] MCH (RBC) [Entitic mass] 29.4 pG 26.0 - 34.[address] [facility] MCHC (RBC) [Mass/Vol] 32.9 g/dL 30.5 - 36.0 g/dL [facility] MCV (RBC) [Entitic vol] 89.4 fL 80.0 - 100.[address] [facility] Platelet mean volume (Bld) [Entitic vol] 10.6 fL 9.0 - 12.[address] [facility] Platelets (Bld) [#/Vol] 370 10*3/uL 150 - 400 k/uL [facility] RBC (Bld) [#/Vol] 4.42 10*6/uL 3.90 - 5.2 0 m/uL [facility] WBC (Bld) [#/Vol] 8.63 10*3/uL 3.70 - 11. 00 k/uL [facility] Vital Signs Date Time Vital Sign Value Performing Clinician Facility 08-07-2024 09:26-0400 Diastolic blood pressure 86 mm[Hg] Deonte Hamm MD Work Phone: [facility] 08-07-2024 09:26-0400 Systolic blood pressure 154 mm[Hg] Deonte Hamm MD Work Phone: [facility] 08-07-2024 08:54-0400 Body height 165.1 cm Deonte Hamm MD Work Phone: [facility] 08-07-2024 08:54-0400 Body mass index (BMI) [Ratio] 22.07 kg/m2 Deonte Hamm MD Work Phone: [facility] 08-07-2024 08:54-0400 Body weight 60.15 kg Deonte Hamm MD Work Phone: [facility] 08-07-2024 08:54-0400 Heart rate 85 /min Deonte Hamm MD Work Phone: [facility] 08-07-2024 08:54-0400 SaO2% (BldA) [Mass fraction] 97 % Deonte Hamm MD Work Phone: [facility] 07-06-2024 12:23-0400 Body mass index (BMI) [Ratio] 22.1 kg/m2 Deonte Hamm MD Work Phone: [facility] 07-06-2024 12:23-0400 Body weight 60.24 kg Deonte Hamm MD Work Phone: [facility] 07-06-2024 12:23-0400 Diastolic blood pressure 74 mm[Hg] Deonte Hamm MD Work Phone: [facility] 07-06-2024 12:23-0400 Heart rate 72 /min Deonte Hamm MD Work Phone: [facility] 07-06-2024 12:23-0400 Respiratory rate 14 /min Deonte Hamm MD Work Phone: [facility] 07-06-2024 12:23-0400 Systolic blood pressure 128 mm[Hg] Doente Hamm MD Work Phone: [facility] 07-06-2024 09:37-0400 Body height 167.[address] Adrian Hamm MD Work Phone: [facility] 07-06-2024 09:37-0400 Body mass index (BMI) [Ratio] 21.3 kg/m2 Dr. Adrian Hamm MD Work Phone: [facility] 07-06-2024 09:37-0400 Body weight 59.[address] Adrian Hamm MD Work Phone: 8(122)884-731606 [place] [address] 07-06-2024 09:37-0400 Diastolic blood pressure 81 mm[Hg] Dr. Adrian Hamm MD Work Phone: 7(332)594-970806 [place] [address] 07-06-2024 09:37-0400 Heart rate 66 /min Dr. Adrian Hamm MD Work Phone: 3(702)911-095006 [place] [address] 07-06-2024 09:37-0400 Respiratory rate 18 /min Dr. Adrian Hamm MD Work Phone: 3(752)711-850006 [place] [address] 07-06-2024 09:37-0400 SaO2% (BldA) [Mass fraction] 96 % Dr. Adrian Hamm MD Work Phone: 9(338)571-612306 [place] [address] 07-06-2024 09:37-0400 Systolic blood pressure 140 mm[Hg] Dr. Adrian Hamm MD Work Phone: 0(699)775-028306 [place] [address] 06-29-2024 14:44-0400 Body temperature 97.6 [degF] Dr. Adrian Hamm MD Work Phone: 3(325)727-443806 [place] [address] 06-29-2024 14:44-0400 Diastolic blood pressure 92 mm[Hg] Dr. Adrian Hamm MD Work Phone: 8(997)768-092506 [place] [address] 06-29-2024 14:44-0400 Heart rate 86 /min Dr. Adrian Hamm MD Work Phone: 6(490)911-878906 [place] [address] 06-29-2024 14:44-0400 Respiratory rate 18 /min Dr. Adrian Hamm MD Work Phone: 6(377)907-087606 [place] [address] 06-29-2024 14:44-0400 SaO2% (BldA) [Mass fraction] 97 % Dr. Adrian Hamm MD Work Phone: 8(241)680-253406 [place] [address] 06-29-2024 14:44-0400 Systolic blood pressure 149 mm[Hg] Dr. Adrian Hamm MD Work Phone: 8(408)563-451106 [place] [address] 06-27-2024 11:12-0400 Body weight 62.[address] Adrian Hamm MD Work Phone: 8(528)659-203806 [place] [address] 06-26-2024 18:21-0400 Body mass index (BMI) [Ratio] 22.3 kg/m2 Dr. Adrian Hamm MD Work Phone: 2(815)870-410406 [place] [address] 06-26-2024 17:39-0400 Diastolic blood pressure 81 mm[Hg] Dr. Adrian Hamm MD Work Phone: 1(350)093-448806 [place] [address] 06-26-2024 17:39-0400 Heart rate 84 /min Dr. Adrian Hamm MD Work Phone: 7(232)844-386206 [place] [address] 06-26-2024 17:39-0400 Respiratory rate 20 /min Dr. Adrian Hamm MD Work Phone: 8(936)571-635106 [place] [address] 06-26-2024 17:39-0400 SaO2% (BldA) [Mass fraction] 96 % Dr. Adrian Hamm MD Work Phone: 2(859)812-010706 [place] [address] 06-26-2024 17:39-0400 Systolic blood pressure 155 mm[Hg] Dr. Adrian Hamm MD Work Phone: 9(118)992-163306 [place] [address] 06-26-2024 14:29-0400 Body temperature 97.9 [degF] Dr. Adrian Hamm MD Work Phone: 8(864)131-041706 [place] [address] 06-26-2024 11:04-0400 Body mass index (BMI) [Ratio] 22.5 kg/m2 Dr. Adrian Hamm MD Work Phone: 8(859)499-516117 [place] [address] 06-26-2024 11:04-0400 Body weight 61.[address] Adrian Hamm MD Work Phone: 6(667)080-026706 [place] [address] 06-26-2024 11:00-0400 Body height 165.[address] Adrian Hamm MD Work Phone: 7(994)101-411106 [place] [address] 06-21-2024 13:38-0400 Body mass index (BMI) [Ratio] 22.96 kg/m2 Deonte Hamm MD Work Phone: 6(902)636-915175 [place] [address] Clinic 06-21-2024 13:38-0400 Body temperature 97.59 [degF] Deonte Hamm MD Work Phone: [facility] 06-21-2024 13:38-0400 Body weight 62.6 kg Deonte Hamm MD Work Phone: [facility] 06-21-2024 13:38-0400 Diastolic blood pressure 74 mm[Hg] Deonte Hamm MD Work Phone: [facility] 06-21-2024 13:38-0400 Heart rate 84 /min Deonte Hamm MD Work Phone: [facility] 06-21-2024 13:38-0400 Respiratory rate 16 /min Deonte Hamm MD Work Phone: [facility] 06-21-2024 13:38-0400 SaO2% (BldA) [Mass fraction] 98 % Deonte Hamm MD Work Phone: [facility] 06-21-2024 13:38-0400 Systolic blood pressure 128 mm[Hg] Deonte Hamm MD Work Phone: [facility] 05-31-2024 10:27-0400 Diastolic blood pressure 74 mm[Hg] Deonte Hamm MD Work Phone: [facility] Comment on above: recheck 05-31-2024 10:27-0400 Systolic blood pressure 148 mm[Hg] Deonte Hamm MD Work Phone: [facility] Comment on above: recheck 05-31-2024 09:42-0400 Body mass index (BMI) [Ratio] 23.26 kg/m2 Deonte Hamm MD Work Phone: [facility] 05-31-2024 09:42-0400 Body weight 63.41 kg Deonte Hamm MD Work Phone: [facility] 05-31-2024 09:42-0400 Heart rate 90 /min Deonte Hamm MD Work Phone: [facility] 05-31-2024 09:42-0400 Respiratory rate 16 /min Deonte Hamm MD Work Phone: [facility] 05-31-2024 09:42-0400 SaO2% (BldA) [Mass fraction] 97 % Deonte Hamm MD Work Phone: [facility] 05-25-2024 10:41-0400 Body height 166.[address] Adrian Hamm MD Work Phone: 8(943)247-113217 [place] [address] 05-25-2024 10:41-0400 Body mass index (BMI) [Ratio] 22.6 kg/m2 Dr. Adrian Hamm MD Work Phone: [phone] [place] [address] 05-25-2024 10:41-0400 Body weight 62.[address] Adrian Hamm MD Work Phone: 3([phone] [place] [address] 05-25-2024 10:41-0400 Diastolic blood pressure 81 mm[Hg] Dr. Adrian Hamm MD Work Phone: 4(767)[phone] [place] [address] 05-25-2024 10:41-0400 Heart rate 88 /min Dr. Adrian Hamm MD Work Phone: 6([phone] [place] [address] 05-25-2024 10:41-0400 Respiratory rate 16 /min Dr. Adrian Hamm MD Work Phone: [phone] [place] [address] 05-25-2024 10:41-0400 Systolic blood pressure 123 mm[Hg] Dr. Adrian Hamm MD Work Phone: [facility] 04-27-2024 13:07-0400 Body mass index (BMI) [Ratio] 23.36 kg/m2 Deonte Hamm MD Work Phone: [facility] 04-27-2024 13:07-0400 Body weight 63.69 kg Deonte Hamm MD Work Phone: [facility] 04-27-2024 13:07-0400 Diastolic blood pressure 72 mm[Hg] Deonte Hamm MD Work Phone: [facility] 04-27-2024 13:07-0400 Heart rate 98 /min Deonte Hamm MD Work Phone: [facility] 04-27-2024 13:07-0400 Respiratory rate 14 /min Deonte Hamm MD Work Phone: [facility] 04-27-2024 13:07-0400 Systolic blood pressure 110 mm[Hg] Deonte Hamm MD Work Phone: [facility] 04-18-2024 09:51-0400 Body mass index (BMI) [Ratio] 23.83 kg/m2 Deonte aHmm MD Work Phone: [facility] 04-18-2024 09:51-0400 Body weight 64.95 kg Deonte Hamm MD Work Phone: [facility] 04-18-2024 09:51-0400 Diastolic blood pressure 66 mm[Hg] Deonte Hamm MD Work Phone: [facility] 04-18-2024 09:51-0400 Heart rate 98 /min Deonte Hamm MD Work Phone: [facility] 04-18-2024 09:51-0400 Respiratory rate 16 /min Deonte Hamm MD Work Phone: [facility] 04-18-2024 09:51-0400 SaO2% (BldA) [Mass fraction] 99 % Deonte Hamm MD Work Phone: [facility] 04-18-2024 09:51-0400 Systolic blood pressure 134 mm[Hg] Deonte Hamm MD Work Phone: [facility] 12-01-2023 09:51-0400 Body mass index (BMI) [Ratio] 25.13 kg/m2 Deonte Hamm MD Work Phone: [facility] 12-01-2023 09:51-0400 Body weight 68.49 kg Deonte Hamm MD Work Phone: [facility] 12-01-2023 09:51-0400 Diastolic blood pressure 70 mm[Hg] Deonte Hamm MD Work Phone: [facility] 12-01-2023 09:51-0400 Heart rate 97 /min Deonte Hamm MD Work Phone: [facility] 12-01-2023 09:51-0400 Respiratory rate 16 /min Deonte Hamm MD Work Phone: [facility] 12-01-2023 09:51-0400 SaO2% (BldA) [Mass fraction] 97 % Deonte Hamm MD Work Phone: [facility] 12-01-2023 09:51-0400 Systolic blood pressure 128 mm[Hg] Deonte Hamm MD Work Phone: [facility] 05-26-2023 09:41-0400 Body weight 69.13 kg Tonya Podlogar SMALL ENGINE TRAINER.CARD DOFFER Work Phone: [facility] 05-26-2023 09:41-0400 Diastolic blood pressure 74 mm[Hg] Tonya Podlogar SMALL ENGINE TRAINER.CARD DOFFER Work Phone: [facility] 05-26-2023 09:41-0400 Heart rate 101 /min Tonya Podlogar SMALL ENGINE TRAINER.CARD DOFFER Work Phone: [facility] 05-26-2023 09:41-0400 Respiratory rate 16 /min Tonya Podlogar SMALL ENGINE TRAINER.CARD DOFFER Work Phone: [facility] 05-26-2023 09:41-0400 SaO2% (BldA) [Mass fraction] 95 % Tonya Podlogar SMALL ENGINE TRAINER.CARD DOFFER Work Phone: [facility] 05-26-2023 09:41-0400 Systolic blood pressure 136 mm[Hg] Tonya Podlogar SMALL ENGINE TRAINER.CARD DOFFER Work Phone: [facility] 11-25-2022 09:51-0400 Body height 165.1 cm Deonte Hamm MD Work Phone: [facility] 11-25-2022 09:51-0400 Body weight 69.85 kg Deonte Hamm MD Work Phone: [facility] 11-25-2022 09:51-0400 Diastolic blood pressure 64 mm[Hg] Deonte Hamm MD Work Phone: [facility] 11-25-2022 09:51-0400 Heart rate 84 /min Deonte Hamm MD Work Phone: [facility] 11-25-2022 09:51-0400 Respiratory rate 16 /min Deonte Hamm MD Work Phone: [facility] 11-25-2022 09:51-0400 Systolic blood pressure 116 mm[Hg] Deonte Hamm MD Work Phone: [facility] 06-03-2022 09:55-0400 Body temperature 97.11 [degF] Deonte Hamm MD Work Phone: [facility] 06-03-2022 09:55-0400 Body weight 73.12 kg Deonte Hamm MD Work Phone: [facility] 06-03-2022 09:55-0400 Diastolic blood pressure 78 mm[Hg] Deonte Hamm MD Work Phone: [facility] 06-03-2022 09:55-0400 Heart rate 92 /min Deonte Hamm MD Work Phone: [facility] 06-03-2022 09:55-0400 Respiratory rate 16 /min Deonte Hamm MD Work Phone: [facility] 06-03-2022 09:55-0400 SaO2% (BldA) [Mass fraction] 97 % Deonte Hamm MD Work Phone: [facility] 06-03-2022 09:55-0400 Systolic blood pressure 138 mm[Hg] Deonte Hamm MD Work Phone: [facility] 11-19-2021 08:59-0400 Body weight 73.94 kg Deonte Hamm MD Work Phone: [facility] 11-19-2021 08:59-0400 Diastolic blood pressure 84 mm[Hg] Deonte Hamm MD Work Phone: [facility] 11-19-2021 08:59-0400 Heart rate 106 /min Deonte Hamm MD Work Phone: [facility] 11-19-2021 08:59-0400 Respiratory rate 18 /min Deonte Hamm MD Work Phone: [facility] 11-19-2021 08:59-0400 SaO2% (BldA) [Mass fraction] 97 % Deonte Hamm MD Work Phone: [facility] 11-19-2021 08:59-0400 Systolic blood pressure 152 mm[Hg] Deonte Hamm MD Work Phone: [facility] Encounters Encounter Date Encounter Type Care Provider Facility Start: 09-08-2024 ambulatory Britney Torres NP Facili ty:[facility] Start: 08-30-2024 End: 08-31-2024 Telephone encounter Deonte Hamm MD Work Phone: [facility] [place] Comment on above: extending skilled nu rse visits Start: 08-23-2024 End: 08-24-2024 Refill Tonya Shine APRN.CNP Work Phone: [facility] Comment on above: Refill Request Start: 08-14-2024 End: 08-14-2024 Telephone encounter Deonte Hamm MD Work Phone: [facility] Comment on above: Home Care Management (for physical therapy) Start: 08-08-2024 End: 08-08-2024 Follow-up encounter Deonte Hamm MD Work Phone: [facility] Start: 08-08-2024 End: 08-09-2024 Telephone encounter Deonte Hamm MD Work Phone: [facility] Comment on above: requesting verbal or mike for retirement Start: 08-07-2024 End: 08-07-2024 Telephone encounter Deonte Hamm MD Work Phone: [facility] [place] Comment on above: Orders Start: 08-07-2024 End: 08-07-2024 Patient encounter procedure Deonte Hamm MD Work Phone: [facility] Comment on above: Nausea and vomiting, unspecified vomiting type (Primary Dx); Decreased appetite; Constipation, unspecified constipation type; Essential hypertension, benign; Hyperlipidemia LDL goal <100; Atrial fibrillation, unspecified type (HCC); Diabetes mellitus with macular edema, both eyes (HCC); Leukocytosis, unspecified type; Age-related physical debility Start: 08-07-2024 End: 08-07-2024 ambulatory DEONTE HAMM Facility:[facility] Start: 07-28-2024 End: 07-28-2024 ambulatory Nurse Intm[facility] Work Phone: Nurse Phone Triage Comment on above: Nausea Start: 07-26-2024 End: 07-26-2024 Refill Tonya Shine APRN.CARD DOFFER Work Phone: [facility] [place] Comment on above: Refill Request Start: 07-13-2024 ambulatory Britney Torres NP Facili ty:[facility] Start: 07-08-2024 End: 07-10-2024 ambulatory Deonte Hamm MD Work Phone: [facility] [place] Comment on above: [employer] Start: 07-07-2024 End: 07-10-2024 ambulatory Deonte Hamm MD Work Phone: [facility] [place] Comment on above: Rectal Pain Start: 07-06-2024 End: 09-05-2024 Follow-up encounter Deonte Hamm MD Work Phone: [facility] Comment on above: Results Start: 07-06-2024 End: 07-06-2024 Patient encounter procedure Britney Torres NP-C -[facility] Work Phone: Start: 07-06-2024 End: 07-06-[address] Adrian Hamm MD Work Phone: [facility] Work Phone: Start: 07-06-2024 End: 07-06-2024 Subsequent hospital visit by physician [facility] Work Phone: Radiology Comment on above: Acute constipation [ K59.00] Start: 07-06-2024 End: 07-06-2024 Patient encounter procedure Deonte Hamm MD Work Phone: [facility] Comment on above: Acute constipation ( Primary Dx); Atrial fibrillation, unspecified type (HCC); Chronic anticoagulation; Nausea and vomiting, unspecified vomiting type; [id number] adverse effect of medication, subsequent encounter; Delirium; Aneurysm of ascending aorta without rupture; External hemorrhoids; Essential hypertension, benign; Acute kidney injury; Fecal impaction (HCC) Start: 07-06-2024 End: 07-06-2024 ambulatory DEONTE HAMM Facility:[facility] Start: 07-04-2024 End: 07-04-2024 Telephone encounter Deonte Hamm MD Work Phone: [facility] Comment on above: Patient Update; Hosp ital F/U Start: 06-30-2024 End: 07-07-2024 Patient Outreach Geraldine Romano LPN [facility] Comment on above: Transition Of Care Hospital follow up a ppointment Start: 06-29-2024 Non-patient / Non-visit Dr. Yumiko [facility] Work Phone: Start: 06-28-2024 Non-patient / Non-visit Dr. Yum[facility] Work Phone: Start: 06-27-2024 ambulatory Taiwo Topete Facility:[facility] Start: 06-27-2024 Non-patient / Non-visit Dr. Taiwo urias MD -[facility] Start: 06-27-2024 ambulatory Andrey Lord Facility:[facility] Start: 06-27-2024 Non-patient / Non-visit Dr. Batsheva CELIS -[facility] Start: 06-26-2024 ambulatory Taiwo Topete Facility:[facility] Start: 06-26-2024 End: 06-29-2024 Evaluation and management of inpatient Dr. Velma Vazquez MD -Progressive Care Unit Work Phone: Start: 06-26-2024 Emergency department patient visit Jordy Mireles Facility:[facility] Start: 06-24-2024 End: 06-26-2024 Telephone encounter Deonte Hamm MD Work Phone: [facility] Comment on above: Patient Update; Karen ent Question Start: 06-21-2024 End: 06-21-2024 Patient encounter procedure Deonte Hamm MD Work Phone: [facility] Comment on above: Decreased appetite ( Primary Dx); Nausea and vomiting, unspecified vomiting type; Fatigue, unspecified type; Viral gastroenteritis; Essential (primary) hypertension; Type 2 diabetes mellitus without complication, without long-term current use of insulin (HCC) Start: 06-21-2024 End: 06-21-2024 ambulatory DEONTE HAMM Facility:[facility] Start: 06-16-2024 End: 06-16-2024 Telephone encounter Deonte Hamm MD Work Phone: [facility] Comment on above: Patient Question Start: 06-13-2024 Non-patient / Non-visit Dr. Kaveh cordova MD -[facility] Work Phone: Start: 06-13-2024 End: 06-13-[address] Adrian Hamm MD Work Phone: [facility] Work Phone: Start: 06-13-2024 End: 06-13-[address] Kaveh Donnelly MD -Pulmonary Services/Neurology Work Phone: Start: 06-13-2024 End: 06-13-2024 ambulatory Kaveh Donnelly Facility:[facility] Start: 05-31-2024 End: 05-31-2024 ambulatory DEONTE HAMM Facility:[facility] Start: 05-31-2024 End: 05-31-2024 Patient encounter procedure Deonte Hamm MD Work Phone: [facility] Comment on above: Diabetes mellitus wi th macular edema, both eyes (HCC) (Primary Dx); Fatigue, unspecified type; Abnormal echocardiogram; Aortic ejection murmur; Essential hypertension, benign; Hyperlipidemia LDL goal <100; Hammer toe of left foot; Weight loss, unintentional; Encounter for immunization Start: 05-31-2024 End: 05-31-2024 ambulatory DEONTE HAMM Facility:[facility] Start: 05-25-2024 End: 05-25-[address] Kaveh Donnelly MD -[facility] Work Phone: Start: 05-25-2024 End: 05-25-2024 ambulatory Adrian Hamm [facility] Start: 05-15-2024 End: 05-16-2024 Follow-up encounter Deonte Hamm MD Work Phone: [facility] Start: 05-13-2024 End: 05-13-2024 ambulatory DEONTE HAMM Facility:[facility] Start: 04-28-2024 End: 04-28-2024 Follow-up encounter Deonte Hamm MD Work Phone: [facility] Comment on above: Results Start: 04-27-2024 End: 04-28-2024 Follow-up encounter Deonte Hamm MD Work Phone: [facility] Comment on above: Results Start: 04-27-2024 End: 04-27-2024 Subsequent hospital visit by physician [facility] [place] Work Phone: Radiology Comment on above: Acute constipation [ K59.00] Start: 04-27-2024 End: 04-27-2024 ambulatory DEONTE HAMM Facility:[facility] Start: 04-27-2024 End: 04-27-2024 Patient encounter procedure Deonte Hamm MD Work Phone: [facility] Comment on above: Acute constipation ( Primary Dx); External hemorrhoids; BRBPR (bright red blood per rectum) Start: 04-26-2024 End: 04-26-2024 ambulatory Deonte Hamm MD Work Phone: [facility] Comment on above: Constipation Start: 04-26-2024 End: 04-26-2024 Follow-up encounter Deonte Hamm MD Work Phone: [facility] [place] Comment on above: Results Start: 04-24-2024 End: 04-24-2024 Telephone encounter Deonte Hamm MD Work Phone: [facility] [place] Comment on above: Results, Lab Start: 04-20-2024 End: 04-20-2024 ambulatory DEONTE HAMM Facility:[facility] Start: 04-19-2024 End: 04-19-2024 Telephone encounter Deonte Hamm MD Work Phone: [facility] [place] Comment on above: Patient Question Start: 04-18-2024 End: 04-19-2024 Follow-up encounter Deonte Hamm MD Work Phone: [facility] [place] Comment on above: Systolic ejection mu rmur (Primary Dx); Abnormal echocardiogram; Fatigue, unspecified type Start: 04-18-2024 End: 04-18-2024 ambulatory DEONTE HAMM Facility:[facility] Start: 04-18-2024 End: 04-18-2024 Subsequent hospital visit by physician [facility] [place] Work Phone: Radiology Comment on above: Fatigue, unspecified type [R53.83] Start: 04-18-2024 End: 04-18-2024 ambulatory DEONTE HAMM Facility:[facility] Start: 04-18-2024 End: 04-18-2024 Patient encounter procedure Deonte Hamm MD Work Phone: [facility] Comment on above: Fatigue, unspecified type (Primary Dx); Loss of appetite; Unintentional weight loss; Pallor; Aortic ejection murmur; Disorder of bone, unspecified Start: 04-13-2024 End: 04-14-2024 Refill Deonte Hamm MD Work Phone: [facility] Comment on above: Refill Request Start: 01-17-2024 End: 01-18-2024 Refill De[facility] Hamm MD [facility] Comment on above: Refill Request Start: 12-03-2023 End: 12-03-2023 ambulatory DEONTE HAMM Facility:[facility] Start: 12-01-2023 End: 12-01-2023 ambulatory DEONTE HAMM Facility:[facility] Start: 12-01-2023 End: 12-01-2023 Patient encounter procedure Deonte Hamm MD [facility] Comment on above: Diabetes mellitus wi th macular edema, both eyes (HCC) (Primary Dx); 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); Hyperlipidemia associated with type 2 diabetes mellitus (HCC) (HCC); Essential hypertension, benign; Aortic ejection murmur; Encounter for immunization Start: 11-06-2023 End: 11-06-2023 ambulatory [facility] [place] Work Phone: [facility] Start: 11-06-2023 End: 11-06-2023 Patient encounter procedure Immunization [facility] Nurse [place] Work Phone: [facility] Start: 10-22-2023 End: 11-23-2023 Telephone encounter Deonte Hamm MD [facility] Comment on above: Orders Start: 07-15-2023 Refill Deonte Hamm MD Work Phone: [facility] Comment on above: Refill Request Start: 06-29-2023 Telephone encounter Tonya tee APRN.CARD DOFFER [facility] Comment on above: Results; Patient Que stion Start: 05-28-2023 Telephone encounter Tonya tee APRN.CARD DOFFER Work Phone: [facility] Comment on above: Results Start: 05-26-2023 End: 05-26-2023 Patient encounter procedure Tonya Shine APRN.CNP Work Phone: [facility] Comment on above: Diabetes mellitus wi th macular edema, both eyes (HCC) (Primary Dx); Hyperlipidemia LDL goal <100; Essential hypertension, benign Start: 05-01-2023 Refill Deonte Hamm MD Work Phone: [facility] Comment on above: Refill Request Start: 01-16-2023 Refill Deonte Hamm MD Work Phone: [facility] [place] Comment on above: Refill Request Start: 11-25-2022 End: 11-25-2022 Patient encounter procedure Deonte Hamm MD Work Phone: [facility] [place] Comment on above: Diabetes mellitus wi th macular edema, both eyes (Primary Dx); BENIGN HYPERTENSION; Hyperlipidemia associated with type 2 diabetes mellitus (HCC) ; Arthritis of both knees; Wears hearing aid Start: 11-07-2022 End: 11-07-2022 ambulatory Immunization [facility] Nurse [place] Work Phone: [facility] Start: 10-26-2022 Documentation procedure Mammog margarita Coordinator [facility] Start: 10-26-2022 Letter encounter Mammography Coordinator [facility] Start: 10-23-2022 End: 10-23-2022 Subsequent hospital visit by physician [facility] Comment on above: Screening mammogram for breast cancer [Z12.31] Start: 09-28-2022 Telephone encounter Adrian Hamm MD Work Phone: [facility] [place] Comment on above: Mammogram Order Start: 07-22-2022 Refill Deonte Hamm MD Work Phone: [facility] Comment on above: Refill Request Start: 06-18-2022 Refill Deonte Hamm MD Work Phone: [facility] Comment on above: Refill Request Start: 06-03-2022 Telephone encounter Adrian Hamm MD Work Phone: [facility] Comment on above: Patient Question; Or ders Start: 06-03-2022 End: 06-03-2022 Subsequent hospital visit by physician [facility] Work Phone: Radiology Comment on above: Chronic pain of left knee [M25.562, G89.29] Start: 06-03-2022 End: 06-03-2022 Patient encounter procedure Deonte Hamm MD Work Phone: [facility] Comment on above: Chronic pain of left knee (Primary Dx); Laxity of knee joint, left; Arthritis of both knees; Bilateral hearing loss, unspecified hearing loss type Start: 04-22-2022 Telephone encounter Adrian Hamm MD Work Phone: [facility] Comment on above: Patient Request Start: 01-29-2022 Refill Deonte Hamm MD Work Phone: [facility] [place] Comment on above: Refill Request Start: 12-04-2021 Refill Deonte Hamm MD Work Phone: [facility] Comment on above: Refill Request Start: 11-19-2021 End: 11-19-2021 Patient encounter procedure Deonte Hamm MD Work Phone: [facility] Comment on above: Diabetes mellitus wi th macular edema, both eyes (HCC) (Primary Dx); 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 Start: 09-05-2021 Telephone encounter Adrian Hamm MD Work Phone: [facility] Comment on above: Orders Start: 07-18-2021 Refill Deonte Hamm MD Work Phone: [facility] Comment on above: Refill Request Start: 04-14-2021 Telephone encounter Adrian Hamm MD Work Phone: [facility] Comment on above: Orders (Lab work) Start: 06-03-2020 Telephone encounter Tomi Vasquez MD [facility] Comment on above: Refill question; Lab Orders Procedures Date Procedure Procedure Detail Performing Clinician Start: 07-06-2024 Radiologic exam abdo men 2 views Deonte Hamm MD Work Phone: Start: 06-29-[address] Adrian Hamm MD Work Phone: Start: 06-28-2024 Serum inorganic phos phate measurement Dr. Adrian Hamm MD Work Phone: Start: 06-26-2024 CT of chest without contrast Dr. Adrian Hamm MD Work Phone: Start: 06-26-[address] Ronnie Hamm MD Work Phone: Start: 06-26-2024 SARS-CoV-2, Influenz a & RSV (PCR) Dr. Adrian Hamm MD Work Phone: Start: 06-26-[address] Ronnie Hamm MD Work Phone: Start: 06-26-2024 Urnls dip stick/tabl et reagent auto microscopy Dr. Adrian Hamm MD Work Phone: Start: 06-26-[address] Adrian Hamm MD Work Phone: Start: 06-26-2024 Computed tomography of abdomen and pelvis with intravenous contrast Dr. Adrian Hamm MD Work Phone: Start: 06-26-2024 X-ray of chest, PA a nd lateral views Dr. Adrian Hamm MD Work Phone: Start: 06-26-[address] Adrian Hamm MD Work Phone: Start: 06-26-[address] Adrian Hamm MD Work Phone: Start: 05-31-2024 [employer] COVI D-19 VACCINE AGE 12+ YR (COMIRNATY) Deonte Hamm MD Work Phone: Start: 05-25-2024 Evaluation of diagno stic study results Dr. Adrian Hamm MD Work Phone: Start: 04-27-2024 Radiologic exam abdo men 2 views Deonte Hamm MD Work Phone: Start: 04-18-2024 Radiologic exam ches t 2 views Deonte Hamm MD Work Phone: Start: 04-18-2024 Urnls dip stick/tabl et rgnt auto w/o microscopy Deonte Hamm MD Work Phone: Start: 04-18-2024 End: 04-18-2024 Ecg routine ecg w/least 12 lds i&r only [facility] Provider Start: 12-01-2023 [employer] COVI D-19 VACCINE AGE 12+ YR (COMIRNATY) Deonte Hamm MD Work Phone: Start: 11-07-2022 INFLUENZA VACCINE, P RSV FREE, AGE 65+ YR, HIGH DOSE, QUADRIVALENT (FLUZONE HIGH-DOSE) Duong Davis MD Work Phone: Start: 10-23-2022 Screening mammograph y bi 2-view breast inc cad Deonte Hamm MD Work Phone: Start: 06-03-2022 Radiologic examinati on knee 1/2 views Deonte Hamm MD Work Phone: Start: 11-19-2021 [employer] COVI D-19 BIVALENT BOOSTER VACCINE, AGE 12+ YR Deonte Hamm MD Work Phone: Start: 11-19-2021 INFLUENZA SEASONAL QUADRIVALENT HIGH DOSE AGE 65+ Deonte Hamm MD Work Phone: Start: 04-25-2021 Adult depression scr eening assessment Tomi Vasquez III, MD Start: 02-28-2016 Colonoscopy Tomi henriquez III, MD Plan of Treatment Date Care Activity Detail Author Start: 02-27-[address] [facility] Start: 02-27-2026 COLORECTAL CANCER SCREENING COLORECTAL CANCER SCREENING [facility] Start: 08-07-2025 Annual PCP Team [employer] dor[place] Disease Visit Annual PCP Team Chronic Disease Visit [facility] Start: 07-18-2025 Glaucoma screening Dilated Retinal E xam [facility] Start: 07-06-2025 Annual PCP Team [employer] dorota Disease Visit Annual PCP Team Chronic Disease Visit [facility] Start: 07-06-2025 BP Controlled (<130/80) BP Controlle d (<130/80) [facility] Start: 06-21-2025 Annual PCP Team [employer] dorota Disease Visit Annual PCP Team Chronic Disease Visit [facility] Start: 06-21-2025 BP Controlled (<130/80) BP Controlle d (<130/80) [facility] Start: 05-31-2025 Annual PCP Team [employer] dorota Disease Visit Annual PCP Team Chronic Disease Visit [facility] Start: 05-31-2025 Diabetic foot examination Diabetic F oot Exam [facility] Start: 04-27-2025 Annual PCP Team [employer] dor[place] Disease Visit Annual PCP Team Chronic Disease Visit [facility] Start: 04-27-2025 BP Controlled (<130/80) BP Controlle d (<130/80) [facility] Start: 04-18-2025 Annual PCP Team [employer] dorota Disease Visit Annual PCP Team Chronic Disease Visit [facility] Start: 04-11-2025 Glaucoma screening Dilated Retinal E xam [facility] Start: 12-07-2024 End: 12-07-2024 Patient encounter procedure 12/07/2024 2:20 PM EDT Office Visit Family [facility] [address] [place], [place] [id number] Deonte Hamm MD [address] [place], [place] [id number] 4 month follow up [facility] Comment on above: 4 month follow up Start: 12-02-2024 Hepatitis B screening Urine Al bumin:Creatinine Ratio [facility] Start: 11-30-2024 Annual PCP Team Clarissa dorota Disease Visit Annual PCP Team Chronic Disease Visit [facility] Start: 11-30-2024 BP Controlled (<130/80) BP Controlle d (<130/80) [facility] Start: 11-30-2024 Hemoglobin A1c measurement HbA1C [facility] Start: 11-30-2024 Hepatitis B surface antibody level LDL Cholesterol [facility] Start: 10-24-2024 Glaucoma screening Dilated Retinal E xam [facility] Start: 10-09-2024 End: 01-08-2025 Calcium.ionized [Moles/volume] in Blood CALCIUM, IONIZED Lab Routine Hypercalcemia Iron deficiency anemia, unspecified iron deficiency anemia type Expected: 10/09/2024, Expires: 01/08/2025 [facility] Comment on above: Expected: 10/09/2024 , Expires: 01/08/2025 Start: 10-09-2024 End: 01-08-2025 CBC W Auto Differential panel - Blood COMPLETE BLOOD COUNT AND DIFFERENTIAL Lab Routine Hypercalcemia Iron deficiency anemia, unspecified iron deficiency anemia type Expected: 10/09/2024, Expires: 01/08/2025 [facility] Work Phone: Comment on above: Expected: 10/09/2024 , Expires: 01/08/2025 Start: 10-09-2024 End: 01-08-2025 Comprehensive metabolic 2000 panel - Serum or Plasma COMPREHENSIVE METABOLIC PANEL Lab Routine Hypercalcemia Iron deficiency anemia, unspecified iron deficiency anemia type Expected: 10/09/2024, Expires: 01/08/2025 [facility] Comment on above: Expected: 10/09/2024 , Expires: 01/08/2025 Start: 10-09-2024 End: 01-08-2025 Ferritin [Mass/volume] in Serum or Plasma FERRITIN Lab Routine Hypercalcemia Iron deficiency anemia, unspecified iron deficiency anemia type Expected: 10/09/2024, Expires: 01/08/2025 [facility] Comment on above: Expected: 10/09/2024 , Expires: 01/08/2025 Start: 10-09-2024 Influenza vaccination Influenza Vacc ine (#1) [facility] Start: 10-09-2024 End: 01-08-2025 Iron and Iron binding capacity panel - Serum or Plasma IRON AND TIBC Lab Routine Hypercalcemia Iron deficiency anemia, unspecified iron deficiency anemia type Expected: 10/09/2024, Expires: 01/08/2025 [facility] Comment on above: Expected: 10/09/2024 , Expires: 01/08/2025 Start: 09-13-2024 End: 09-13-2024 Patient encounter procedure 09/13/2024 12:45 PM EDT Appointment [facility] [address] [id number] Obstructive hypertrophic cardiomyopathy [I42.1] [facility] Comment on above: Obstructive hypertro phic cardiomyopathy [I42.1] Start: 09-13-2024 Subsequent hospital visit by physician 09/13/2024 12:45 PM EDT Hospital Encounter [facility] [address] [place] [address] Obstructive hypertrophic cardiomyopathy (HCC) [I42.1] [facility] Comment on above: Obstructive hypertro phic cardiomyopathy (HCC) [I42.1] Start: 08-30-2024 End: 08-30-2024 Patient encounter procedure 08/30/2024 9:40 AM EDT Office Visit [facility] [address] [facility] [place] [address] Deonte Hamm MD [address] [place] [address] 3 month follow up Family [facility] Comment on above: 3 month follow up Start: 08-07-2024 End: 08-07-2024 Patient encounter procedure 08/07/2024 9:00 AM EDT Office Visit Family [facility] [address] [facility] [place] [address] Deonte Hamm MD [address] [place] [address] 4 week follow up Family [facility] Comment on above: 4 week follow up Start: 08-04-2024 End: 08-04-2024 Patient encounter procedure 08/04/2024 10:00 AM EDT Office Visit [facility] [address] [facility] [place] [address] Tonya Shine APRN.CARD DOFFER [address] [place] [address] 4 week follow up Family [facility] Comment on above: 4 week follow up Start: 07-24-2024 End: 10-23-2024 Magnesium [Mass/volume] in Serum or Plasma MAGNESIUM Lab Routine Hypomagnesemia Expected: 07/24/2024, Expires: 10/23/2024 [facility] Work Phone: Comment on above: Expected: 07/24/2024 , Expires: 10/23/2024 Start: 07-06-2024 End: 10-05-2024 Comprehensive metabolic 2000 panel - Serum or Plasma [facility] Comment on above: Expected: 07/06/2024 , Expires: 10/05/2024 Start: 07-06-2024 End: 10-05-2024 Magnesium [Mass/volume] in Serum or Plasma [facility] Comment on above: Expected: 07/06/2024 , Expires: 10/05/2024 Start: 07-06-2024 End: 10-05-2024 Thyrotropin [Units/volume] in Serum or Plasma [facility] Work Phone: Comment on above: Expected: 07/06/2024 , Expires: 10/05/2024 Start: 07-06-2024 End: 07-06-2024 Patient encounter procedure 07/06/2024 12:20 PM EDT Office Visit [facility] [address] [place], [place] [phone] Deonte Hamm MD [address] [place], [place] [phone] Follow up from hospital stay ([facility] 06/26-06/29). Medication changes (appt originally made via UUCUNhart)-see phone encounter 07/04 [facility] Comment on above: Follow up from hospi ibeth stay ([facility] 06/26-06/29). Medication changes (appt originally made via MyChart)-see phone encounter 07/04 Start: 06-29-2024 Patient discharge [facility] Start: 06-28-2024 Care planning and pr oblem solving actions [facility] Start: 06-27-2024 End: 06-28-2024 [facility] Start: 06-27-2024 End: 06-27-2024 Care planning and problem solving actions [facility] Start: 06-26-2024 Assessment of risk o f venous thromboembolism [facility] Start: 06-26-2024 Care regimes management [facility] Start: 06-26-2024 Insertion of cathete r into peripheral vein [facility] Start: 06-26-2024 Measuring intake and output [facility] Start: 06-26-2024 Notification of physician [facility] Start: 06-26-2024 Providing care accor ding to standard [facility] Start: 06-26-2024 Provision of activit y privileges [facility] Start: 06-26-2024 Referral to occupati onal therapist [facility] Start: 06-26-2024 Referral to service [facility] Start: 06-26-2024 Referral to vascular surgeon [facility] Start: 06-26-2024 End: 06-26-2024 [facility] Start: 06-26-2024 Following clinical pathway protocol [facility] Start: 06-26-2024 Admission procedure [facility] Start: 06-26-2024 Hospital admission, emergency, from emergency room, medical nature [facility] Start: 06-26-2024 Bacteria identified in Blood by Culture Blood Culture [facility] Start: 06-26-2024 Bacteria identified in Urine by Culture Urine Culture [facility] Start: 06-26-2024 End: 06-26-2024 [facility] Start: 06-26-2024 Patient referral to dietitian [facility] Start: 06-21-2024 End: 09-20-2024 Comprehensive metabolic 2000 panel - Serum or Plasma [facility] Work Phone: Comment on above: Expected: 06/21/2024 , Expires: 09/20/2024 Start: 06-21-2024 Glaucoma screening Dilated Retinal E xam [facility] Start: 06-21-2024 End: 09-20-2024 Thyrotropin [Units/volume] in Serum or Plasma [facility] Comment on above: Expected: 06/21/2024 , Expires: 09/20/2024 Start: 06-21-2024 End: 09-20-2024 Urinalysis complete panel - Urine [facility] Comment on above: Expected: 06/21/2024 , Expires: 09/20/2024 Start: 06-21-2024 End: 06-21-2024 Patient encounter procedure 06/21/2024 1:40 PM EDT Office Visit Family Medicine [address] [place] [address] Deonte Hamm MD [address] [place] [address] fatigue, nausea, [facility] Comment on above: fatigue, nausea, Start: 06-15-[address] [facility] Start: 05-31-2024 Covid-19 Vaccine () Covid-19 Vaccine () [facility] Start: 05-31-2024 Hemoglobin A1c measurement HbA1C [facility] Start: 05-31-2024 End: 05-31-2024 Patient encounter procedure 05/31/2024 9:40 AM EDT Office Visit [facility] [address] [facility] [place] [phone] Deonte Hamm MD [address] [place], [place] [phone] 6 month follow up [facility] Comment on above: 6 month follow up Start: 05-25-2024 Annual PCP Team Muck Miner Blasting dorota Disease Visit Annual PCP Team Chronic Disease Visit [facility] Start: 05-25-2024 Diabetic foot examination Diabetic F oot Exam [facility] Start: 05-24-2024 End: 05-24-2024 Patient encounter procedure 05/24/2024 10:00 AM EDT Office Visit [facility] [address] [place] [address] [id number] Katya Vera APRN.[address] [place] [address] Systolic ejection murmur [R01.1]; Abnormal echocardiogram [R93.1]; Fatigue, unspecified type [R53.83] [facility] Comment on above: Systolic ejection mu rmur [R01.1]; Abnormal echocardiogram [R93.1]; Fatigue, unspecified type [R53.83] Start: 05-12-2024 End: 08-11-2024 Comprehensive metabolic 2000 panel - Serum or Plasma COMPREHENSIVE METABOLIC PANEL Lab Routine Hypercalcemia Expected: 05/12/2024, Expires: 08/11/2024 [facility] Work Phone: Comment on above: Expected: 05/12/2024 , Expires: 08/11/2024 Start: 04-27-2024 End: 04-27-2024 Patient encounter procedure 04/27/2024 1:00 PM EDT Office Visit [facility] [address] [facility], [place] [phone] Deonte Hamm MD [address] [place], [place] [phone] Constipation [facility] Comment on above: Constipation Start: 04-26-2024 End: 07-26-2024 PROTEIN ELECTROPHORESIS SERUM W/INTERP [facility] Work Phone: Comment on above: Expected: 04/26/2024 , Expires: 07/26/2024 Start: 02-09-2024 Advance Directive Discussion Advance Directive Discussion [facility] Start: 12-01-2023 End: 12-01-2023 Patient encounter procedure 12/01/2023 9:40 AM EDT Office Visit [facility] [address] [facility], [place] [phone] Deonte Hamm MD [address] [place], [place] [phone] 6 mo follow up [facility] Comment on above: 6 mo follow up Start: 11-26-2023 Annual PCP Team Muck Miner Blasting dorota Disease Visit Annual PCP Team Chronic Disease Visit [facility] Start: 11-26-2023 BP Controlled (<130/80) BP Controlle d (<130/80) [facility] Start: 11-26-2023 Covid-19 Vaccine () Covid-19 Vaccine () [facility] Comment on above: Postponed from 10/09 (Declined at this time) Start: 11-26-2023 Hepatitis B surface antibody level LDL Cholesterol [facility] Start: 11-26-2023 RSV Vaccine (1 - 1-d ose 60+ series) RSV Vaccine (1 - 1-dose 60+ series) [facility] Comment on above: Postponed from 10/14 (Insurance Coverage) Start: 11-26-2023 Shingrix Vaccine (3 of 3) Kessler grix Vaccine (3 of 3) [facility] Comment on above: Postponed from 11/24 (Declined at this time) Start: 11-25-2023 Hemoglobin A1c measurement HbA1C [facility] Start: 11-06-2023 End: 11-06-2023 Patient encounter procedure 11/06/2023 8:10 AM EDT Immunization [facility] [address] [place], [place] [phone] [facility], Immunization Clinic Nurse [address] [place], [place] [phone] flu shot [facility] Comment on above: flu shot Start: 10-10-2023 Covid-19 Vaccine () Covid-19 Vaccine () [facility] Start: 10-10-2023 Influenza vaccination Influenza Vacc ine (#1) [facility] Start: 07-03-2023 Hepatitis B screening URINE AL BUMIN:CREATININE RATIO [facility] Start: 06-27-2023 End: 09-26-2023 Comprehensive metabolic 2000 panel - Serum or Plasma COMPREHENSIVE METABOLIC PANEL Lab Routine Hypercalcemia Expected: 06/27/2023, Expires: 09/26/2023 [facility] Work Phone: Comment on above: Expected: 06/27/2023 , Expires: 09/26/2023 Start: 06-04-2023 ANNUAL PCP TEAM SAW MAKER DOROTA DISEASE VISIT ANNUAL PCP TEAM CHRONIC DISEASE VISIT [facility] Start: 05-30-2023 Glaucoma screening Dilated Retinal E xam [facility] Start: 05-27-2023 Hemoglobin A1c measurement HbA1C [facility] Start: 05-27-2023 Hemoglobin A1c/Hemoglobin.total in Blood HbA1C [facility] Start: 05-21-2023 3 comp foot exam completed DIABETIC FOOT EXAM [facility] Start: 05-21-2023 Diabetic foot examination Diabetic F oot Exam [facility] Start: 04-08-2023 Covid-19 Vaccine ( season) Covid-19 Vaccine ( season) [facility] Start: 02-08-2023 Advance Directive Discussion Advance Directive Discussion [facility] Start: 02-08-2023 Behavioral Health Screening Behavioral Health Screening [facility] Start: 02-08-2023 Depression Assessment Depression Ass essment [facility] Start: 11-19-2022 ANNUAL PCP TEAM SAW MAKER DOROTA DISEASE VISIT ANNUAL PCP TEAM CHRONIC DISEASE VISIT [facility] Start: 11-13-2022 Hepatitis B screening URINE AL BUMIN:CREATININE RATIO [facility] Start: 11-13-2022 Hepatitis B surface antibody level LDL CHOLESTEROL [facility] Start: 11-10-2022 Hemoglobin A1c/Hemoglobin.total in Blood HBA1C [facility] Start: 11-03-2022 Glaucoma screening Dilated Retinal E xam [facility] Start: 11-03-2022 Hepatitis C antibody , confirmatory test DILATED RETINAL EXAM [facility] Start: 10-09-2022 [facility] Start: 06-17-2022 End: 08-17-2022 ALBUMIN/CREAT RATIO RND UR ALBUMIN/CREAT RATIO RND UR Lab Routine Diabetes mellitus with macular edema, both eyes (HCC) Expected: 06/17/2022, Expires: 08/17/2022 [facility] Work Phone: Comment on above: Expected: 06/17/2022 , Expires: 08/17/2022 Start: 05-14-2022 Hemoglobin A1c/Hemoglobin.total in Blood HBA1C [facility] Start: 04-25-2022 3 comp foot exam completed DIABETIC FOOT EXAM [facility] Start: 04-25-2022 Adult depression screening assessment DEPRESSION SCREENING [facility] Start: 04-25-2022 ANNUAL PCP TEAM SAW MAKER DOROTA DISEASE VISIT ANNUAL PCP TEAM CHRONIC DISEASE VISIT [facility] Start: 04-21-2022 Hepatitis C antibody , confirmatory test DILATED RETINAL EXAM [facility] Start: 03-22-2022 COVID-19 VACCINE (6 - Pfizer series) COVID-19 VACCINE (6 - Pfizer series) [facility] Start: 02-08-2022 ADVANCE DIRECTIVE DISCUSSION ADVANCE DIRECTIVE DISCUSSION [facility] Start: 11-19-2021 End: 01-19-2022 CBC W Auto Differential panel - Blood CBC + DIFF Lab Routine Thrombocytosis Expected: 11/19/2021, Expires: 01/19/2022 [facility] Work Phone: Comment on above: Expected: 11/19/2021 , Expires: 01/19/2022 Start: 10-22-2021 Hemoglobin A1c/Hemoglobin.total in Blood HBA1C [facility] Start: 10-11-2021 Hepatitis B screening URINE AL BUMIN:CREATININE RATIO [facility] Start: 10-11-2021 Hepatitis B surface antibody level LDL CHOLESTEROL [facility] Start: 10-09-2021 Influenza vaccination INFLUENZA (#1) [facility] Start: 08-25-2021 COVID-19 VACCINE (5 - Booster for Pfizer series) COVID-19 VACCINE (5 - Booster for Pfizer series) [facility] Start: 02-08-2021 ADVANCE DIRECTIVE DISCUSSION ADVANCE DIRECTIVE DISCUSSION [facility] Start: 02-08-2021 DEPRESSION ASSESSMENT DEPRESSION ASS ESSMENT [facility] Start: 08-10-2014 SHINGRIX VACCINE (1 of 2) KESSLER GRIX VACCINE (1 of 2) [facility] Start: 08-10-2014 SHINGRIX VACCINE (2 of 3) KESSLER GRIX VACCINE (2 of 3) [facility] Start: 10-09-2010 Medicare Annual Well ness Visit Medicare Annual Wellness Visit [facility] Start: 05-25-2006 FECAL OCCULT BLOOD FECAL OCCULT BLOO D [facility] Start: 2005 Hepatitis B Vaccine (1 of 3 - Risk 3-dose series) Hepatitis B Vaccine (1 of 3 - Risk 3-dose series) [facility] Start: 1990 COLOGUARD (FIT-DNA) COLOGUARD (FIT-D NA) [facility] Start: [address] [facility] Start: 1990 [facility] Start: 10-15-1963 Anxiety Screening Anxiety Screening [facility] Start: 10-15-1963 BP CONTROLLED (<130/80) BP CONTROLLE D (<130/80) [facility] Start: 10-15-1963 Depression Screening Depression Scre ening [facility] Cardiac event recording [facility] ECG COMPLETE [facility] Comment on above: Ordered: 04/18/2024 Hemoglobin.gastroint estin al.lower [Presence] in Stool by Immunoassay IMMUNOCHEMICAL FECAL OCCULT BLOOD TEST Lab Routine Pallor Ordered: 04/18/2024 [facility] Work Phone: Comment on above: Ordered: 04/18/2024 End: 10-28-2023 [facility]AVIN SCREENING [facility] SCREENING Radiology Routine Screening mammogram for breast cancer 1 Occurrences starting 09/28/2022 until 10/28/2023 [facility] Work Phone: Comment on above: 1 Occurrences starti ng 09/28/2022 until 10/28/2023 Patient referral [facility] Work Phone: End: 10-05-2022 Screening mammography bi 2-view breast inc cad [facility] SCREENING Radiology Routine Screening mammogram for breast cancer 1 Occurrences starting 09/05/2021 until 10/05/2022 [facility] Work Phone: Comment on above: 1 Occurrences starti ng 09/05/2021 until 10/05/2022 Urine culture [facility] Immunizations Immunization Date Immunization Notes Care Provider Fa [facility] 05-31-2024 COVID-19 vaccine, ag e 12+ yr (PFIZER-BIONTECH COMIRNATY) Deonte Hamm MD Work Phone: [facility] 12-01-2023 COVID-19 vaccine, ag e 12+ yr (PFIZER-BIONTECH COMIRNATY) Deonte Hamm MD Work Phone: [facility] 11-06-2023 influenza, high dose seasonal, preservative-free Immunization [facility] Work Phone: [facility] 11-06-2023 influenza virus vaccine, unspecified formulation Deonte Hamm MD Work Phone: [facility] 12-18-2022 respiratory syncytia l virus (RSV) vaccine, adjuvanted (AREXVY) Tonya Shine SMALL ENGINE TRAINER.CARD DOFFER Work Phone: [facility] 12-07-2022 zoster vaccine recombinant Tonya Shine SMALL ENGINE TRAINER.CARD DOFFER Work Phone: [facility] 11-07-2022 influenza (HD-IIV4) vaccine, age 65+ yr, high dose, quadrivalent, PF (FLUZONE HIGH-DOSE) Immunization [place] Work Phone: [facility] 11-07-2022 influenza virus vaccine, unspecified formulation Xr [place] Work Phone: [facility] 09-29-2022 zoster vaccine recombinant Deonte Hamm MD Work Phone: [facility] Work Phone: 11-19-2021 COVID-19 booster vaccine, age 12+ yr, bivalent (Xola-BIONTECH) Deonte Hamm MD Work Phone: [facility] 11-19-2021 influenza, high-dose , quadrivalent vaccine (FLUZONE HIGH DOSE QUADRIVALENT) Deonte Hamm MD Work Phone: [facility] 11-19-2021 influenza virus vaccine, unspecified formulation Mammography Coordinator [facility] 04-25-2021 COVID-19 vaccine, ag e 12+ yr (PFIZER-BIONTECH - VALENTINE TOP) Deonte Hamm MD Work Phone: [facility] 10-23-2020 influenza, high-dose , quadrivalent vaccine (FLUZONE HIGH DOSE QUADRIVALENT) Deonte Hamm MD Work Phone: [facility] 04-03-2020 COVID-19 vaccine, ag e 12+ yr (PFIZER-BIONTECH - PURPLE TOP) Tomi Vasquez III, MD [facility] 10-24-2019 influenza, high-dose , quadrivalent vaccine (FLUZONE HIGH DOSE QUADRIVALENT) Tomi Vasquez III, MD [facility] 12-03-2018 influenza, high dose seasonal, preservative-free Tomi Vasquez III, MD [facility] 11-06-2017 influenza, high dose seasonal, preservative-free Tomi Vasquez III, MD [facility] 11-14-2016 influenza, high dose seasonal, preservative-free Tomi Vasquez III, MD [facility] 06-29-2016 pneumococcal polysaccharide vaccine, 23 valent Tomi Vasquez III, MD [facility] 11-01-2015 influenza, high dose seasonal, preservative-free Tomi Vasquez III, MD [facility] 11-08-2014 influenza, high dose seasonal, preservative-free Tomi Vasquez III, MD [facility] 06-15-2014 tetanus toxoid, redu dank diphtheria toxoid, and acellular pertussis vaccine, adsorbed Tomi Vasquez III, MD [facility] 06-15-2014 zoster vaccine, live Tomi Vasquez III, MD [facility] 04-06-2014 pneumococcal conjuga te vaccine, 13 valent Tomi Vasquez III, MD [facility] 11-22-2013 influenza, seasonal, injectable Tomi Vasquez III, MD [facility] 11-23-2012 influenza virus vaccine, unspecified formulation Tomi Vasquez III, MD [facility] 02-08-2012 influenza virus vaccine, unspecified formulation Tomi Vasquez III, MD [facility] 11-15-2009 influenza virus vaccine, whole virus Tomi Vasquez III, MD [facility] 12-22-2008 novel [id number], preservative-free, injectable Deonte Hamm MD Work Phone: [facility] Work Phone: 11-08-2008 influenza virus vaccine, unspecified formulation Tomi Vasquez III, MD [facility] 05-30-2008 pneumococcal polysaccharide vaccine, 23 valent Tomi Vasquez III, MD [facility] 12-14-2007 influenza virus vaccine, unspecified formulation Tomi Vasquez III, MD [facility] Work Phone: 12-22-2006 influenza virus vaccine, whole virus Tomi Vasquez III, MD [facility] 12-08-2005 influenza virus vaccine, unspecified formulation Tomi Vasquez III, MD [facility] 12-31-1998 diphtheria and tetan us toxoids, adsorbed for pediatric use Tomi Vasquez III, MD [facility] Payers Date Payer Category Payer Self-pay 2019 Private Health Insurance MMO MED ICARE SUPPLEMENT [id number] 2019 Unknown MMO MMO MEDICARE SUPPLEMENT [id number] 2019-Present [phone] [address] [place] [address] Indemnity [id number] 2019 Unknown MMO MMO MEDICARE SUPPLEMENT [id number] 2019-Present [phone] [address] [place] [address] Indemnity [id number] 2019 Medicare [id number] 2010 Medicare MEDICARE MEDICAR E A AND B [id number] 2010-Present [phone] [place] [address] Medicare [id number] 2010 Medicare [id number] 2010 Medicare [id number] Unknown COMMERCIAL OTHER [id number] Unknown [id number] 462 Unknown [id number]. 462 Unknown [id number]. 462 Unknown [id number]. 462 Unknown [id number] [id number]. 462 Unknown [id number]. 462 Unknown [id number] [id number]. 462 Unknown [id number] [id number]. 462 Unknown [id number] [id number]. 462 Unknown [id number] [id number]. 462 Unknown [id number]. 462 Unknown [id number] [id number]. 462 Unknown [id number] [id number]. 462 Unknown [id number] [id number]. 462 Unknown [id number]. 462 Social History Date Type Detail Facility Start: 05-03-2017 End: 11-19-2021 Tobacco smoking status NHIS Never smoked tobacco [facility] Start: 10-24-2019 End: 07-06-2024 Alcohol intake Current non-drinker of alcohol (finding) [facility] Start: 10-20-2020 End: 05-17-2022 History SDOH Alcohol Frequency 1 [facility] Start: 10-20-2020 History SDOH Alcohol Std Drinks 98 [facility] Start: 10-20-2020 End: 05-17-2022 History SDOH Social Connections Phone 5 [facility] Start: 10-20-2020 End: 05-17-2022 History SDOH Social Connections Yazidi 3 [facility] Start: 10-20-2020 End: 05-17-2022 History SDOH Social Connections Living 4 [facility] Start: 10-20-2020 History SDOH Physica l Activity DPW 7 [facility] Start: 10-20-2020 End: 05-17-2022 History SDOH Physical Activity MPS 2 [facility] Start: 1945 Sex Assigned At Not on file [facility] [facility] Start: 04-15-2021 End: 09-05-2021 Exposure to SARS-CoV-2 (event) Not sure [facility] Start: 10-20-[address] [facility] Start: 05-03-2017 End: 11-19-2021 Tobacco use and exposure Smokeless tobacco non-user [facility] Work Phone: Start: 05-17-2022 History SDOH Alcohol Std Drinks 0 [facility] Start: 01-14-2020 End: 05-17-2022 History of Social function [facility] Start: 01-14-2020 End: 05-17-2022 Social connection and isolation panel [facility] Do you belong to any clubs or organizations such as sikhism groups, unions, fraternal or athletic groups, or school groups? Yes [facility] Are you now , , , , never or living with a partner? [facility] How often to you hav e a drink containing alcohol? Never [facility] How many standard dr inks containing alcohol do you have on a typical day? Patient does not drink [facility] Do you feel stress - tense, restless, nervous, or anxious, or unable to sleep at night because your mind is troubled all the time - these days [OSQ] Not at all [facility] (I/We) worried wheth er (my/our) food would run out before (I/we) got money to buy more. Never true [facility] In the past 12 month s, was there a time when you were not able to pay the mortgage or rent on time? No [facility] Start: 1945 Sex Assigned At Female [facility] Medical Equipment Procedure Code Equipment Code Equipment Origin al Text Equipment Identifier Dates [id number], [id number], [id number], [id number], [id number] Start: 10-03-2013 End: 04-13-2024 Comment on above: 1 Each as directed. daily. Use as instructed. Dx 250.00 No insulin Test blood sugar(s) one time daily. Dx: E11.9. Insulin: No 1 Each as directed. Use as directed. DX: E11.9, Insulin: No Goals Date Patient Goal Desired Activity /State Functional Status Date Assessment Result Facility 06-29-2024 Functional status Ambulates;Chair [facility] Work Phone: 04-27-2024 Total score [AUDIT-C] 0 04/28/19 12:31 PM EDT User, [email or web address] [facility] 04-27-2024 Within the last year , have you been humiliated or emotionally abused in other ways by your partner or ex-partner? No 04/27/2024 12:31 PM EDT User, [email or web address] No [facility] 04-27-2024 Within the last year , have you been afraid of your partner or ex-partner? No 04/27/2024 12:31 PM EDT [facility] 04-27-2024 Within the last year , have you been raped or forced to have any kind of sexual activity by your partner or ex-partner? No 04/27/2024 12:31 PM EDT User, [place]t [facility] 04-27-2024 Within the last year , have you been kicked, hit, slapped, or otherwise physically hurt by your partner or ex-partner? No 04/27/2024 12:31 PM EDT User, [place] No [facility] 04-27-2024 How often to you hav e a drink containing alcohol? Never 04/27/2024 12:31 PM EDT User, [place]le[place] Never [facility] 04-27-2024 Functional status Patient does n ot drink 04/27/2024 12:31 PM EDT User, Binu Patient does not drink [facility] 04-27-2024 How often do you hav e 6 or more drinks on 1 occasion? Never 04/27/2024 12:31 PM EDT User, Mychart Never [facility] 04-23-2014 Are you deaf, or do you have serious difficulty hearing No 04/23/2014 11:46 AM HOT Marline May LPN No [facility] 04-23-2014 Are you blind, or do you have serious difficulty seeing, even when wearing glasses Yes 04/23/2014 11:46 AM HOT Marline May LPN Yes [facility] 04-23-2014 Do you have serious difficulty walking or climbing stairs No 04/23/2014 11:46 AM HOT Marline May LPN No [facility] 04-23-2014 Do you have difficul ty dressing or bathing No 04/23/2014 11:46 AM Marline Ruth LPN No [facility] 04-23-2014 Because of a physica l, mental, or emotional condition, do you have difficulty doing errands alone such as visiting a physician's office or shopping No 04/23/2014 11:46 AM Marline Ruth LPN No [facility] Mental Status Date Assessment Result Facility 06-29-2024 Cognitive function Voice/Name [facility] [employer] Work Phone: 04-23-2014 Because of a physica l, mental, or emotional condition, do you have serious difficulty concentrating, remembering, or making decisions No 04/23/2014 11:46 AM Marline Ruth LPN No [facility] Clinical Notes 07-19-2010 to 08-31-2024 Telephone Encounter - Renetta Joshi MA - 08/31/2024 2:44 PM EDTTelephone Encounter - Renetta Joshi MA - 08/31/2024 2:44 PM EDTPatient InstructionsPatient Instructions Note Date & Type Note Facility 08-31-2024 Telephone encounter Note Pt notified and verbalized understanding Renetta Joshi MA [facility] 08-31-2024 Miscellaneous Notes Pt notified and verbalized understanding Renetta Joshi MA Much better. Continue 5 mg of amlodipine as prescribed and she should be monitoring BP at home with goal less than 140/90 and above 100/60. Pt phoned to let pcp know her BP at 2 pm today was 134/79 (84). Reports this morning BP 143/84. Reports she never had symptoms was high BP yesterday and doesn't have any symptoms today. Reports she is feeling good. I have updated her medication list to reflect this change. Please update us this afternoon. Pt son Christopher reports pts BP this AM 143/84. Pt is compliant with her meds. I spoke with patient and she reports no sx. [facility] increased amlodipine to 5mg. Son will check pts bp this afternoon and update office. Didi Castillo MA Reviewed. Has she been compliant with her medications. Any high BP symptoms such as headache, vision changes, chest pain, Shortness of Breath, or leg swelling? Alysa from [facility] calling to extend retirement visits 1 time weekly for 3 weeks, due to elevated blood pressure. Patient is anxious about stress test scheduled for 09/08. She reported to [facility] also. BP 180/96 pulse 72, waiting for response from [facility]. documented in this encounter [facility] 08-31-2024 Telephone encounter Note Much better. Continue 5 mg of amlodipine as prescribed and she should be monitoring BP at home with goal less than 140/90 and above 100/60. [facility] 08-31-2024 Telephone encounter Note Pt phoned to let pcp know her BP at 2 pm today was 134/79 (84). Reports this morning BP 143/84. Reports she never had symptoms was high BP yesterday and doesn't have any symptoms today. Reports she is feeling good. [facility] 08-31-2024 Telephone encounter Note I have updated her medication list to reflect this change. Please update us this afternoon. [facility] 08-31-2024 Telephone encounter Note Pt son Christopher reports pts BP this AM 143/84. Pt is compliant with her meds. I spoke with patient and she reports no sx. [facility] increased amlodipine to 5mg. Son will check pts bp this afternoon and update office. Didi Castillo MA [facility] 08-31-2024 Telephone encounter Note Reviewed. Has she been compliant with her medications. Any high BP symptoms such as headache, vision changes, chest pain, Shortness of Breath, or leg swelling? [facility] 08-30-2024 Telephone encounter Note Alysa from [facility] calling to extend retirement visits 1 time weekly for 3 weeks, due to elevated blood pressure. Patient is anxious about stress test scheduled for 09/08. She reported to [facility] also. BP 180/96 pulse 72, waiting for response from [facility]. [facility] 08-24-2024 Telephone encounter Note Prescription Refill Information The patient has been identified by name and date of : Yes Caregiver verified no other encounters exist for this prescription request: Yes Caregiver confirmed with patient/requestor that no other refills are due, in the near future, with this provider at this time: Yes The last office visit in the department: 08/07/24 Does the patient have a future office visit with this provider/department: Yes Requested Prescriptions Pending Prescriptions Disp Refills atorvastatin (LIPITOR) 20 mg tablet 90 tablet 1 Sig: Take 1 tablet by mouth daily at bedtime. For cholesterol. Chanelle Alexandre LPN August 24, 2024 2:[address] [facility] 08-24-2024 Miscellaneous Notes Prescription Refill Information The patient has been identified by name and date of : Yes Caregiver verified no other encounters exist for this prescription request: Yes Caregiver confirmed with patient/requestor that no other refills are due, in the near future, with this provider at this time: Yes The last office visit in the department: 08/07/24 Does the patient have a future office visit with this provider/department: Yes Requested Prescriptions Pending Prescriptions Disp Refills atorvastatin (LIPITOR) 20 mg tablet 90 tablet 1 Sig: Take 1 tablet by mouth daily at bedtime. For cholesterol. Chanelle Alexandre LPN August 24, 2024 2:21 PM documented in this encounter [facility] 08-14-2024 Telephone encounter Note Viv PT with [facility] calling plan of care for pt. 2x/wk for 3 wks for lower extremity strength, gait training and balance. [facility] 08-14-2024 Miscellaneous Notes Viv PT with [facility] calling plan of care for pt. 2x/wk for 3 wks for lower extremity strength, gait training and balance. documented in this encounter [facility] 08-09-2024 Telephone encounter Note Called and left a detailed voicemail notifying [facility]. Clinic phone number was left in case she had any questions. Lucia Ambrose RN [facility] 08-09-2024 Miscellaneous Notes Called and left a detailed voicemail notifying [facility] from [facility] message. Clinic phone number was left in case she had any questions. Lucia Ambrose RN Ok for verbal order for SN Viv from [facility] calling requesting a verbal order for retirement to begin tomorrow, since patient has afib and nausea issues. Please advise documented in this encounter [facility] 08-09-2024 Telephone encounter Note Ok for verbal order for SN [facility] 08-08-2024 Telephone encounter Note Viv from [facility] calling requesting a verbal order for retirement to begin tomorrow, since patient has afib and nausea issues. Please advise [facility] 08-08-2024 Telephone encounter Note Christopher returned call and given provider's message below with verbalized understanding. [facility] 08-08-2024 Miscellaneous Notes Christopher returned call and given provider's message below with verbalized understanding. Telephone call placed to víctor White, message left to call office back for update. Em Sommer LPN ----- Message from Deonte Hamm MD sent at 08/08/2024 8:16 AM EDT ----- Labs show normal magnesium level. WBC has returned to normal as well. Still shows mild/stable anemia related to iron deficiency with low protein levels and high calcium level. With her constipation improved, I would recommend starting her on daily iron supplement to improve her anemia. Continue miralax and pushing PO fluids to prevent constipation from the iron supplement. Will recheck levels in 2-3 months. Increase protein in her diet and continue to supplement with Boost or ensure up to 3 times per day. Previous workup for hypercalcemia was negative for hyperparathyroidism, multiple myeloma, thyroid disorder, and vitamin D deficiency. I would have her stop taking her calcium supplement and recheck with CBC and iron labs in 2-3 months. documented in this encounter [facility] 08-08-2024 Telephone encounter Note Telephone call placed to víctor White, message left to call office back for update. Em Sommer LPN [facility] 08-08-2024 Telephone encounter Note ----- Message from Deonte Hamm MD sent at 08/08/2024 8:16 AM EDT ----- Labs show normal magnesium level. WBC has returned to normal as well. Still shows mild/stable anemia related to iron deficiency with low protein levels and high calcium level. With her constipation improved, I would recommend starting her on daily iron supplement to improve her anemia. Continue miralax and pushing PO fluids to prevent constipation from the iron supplement. Will recheck levels in 2-3 months. Increase protein in her diet and continue to supplement with Boost or ensure up to 3 times per day. Previous workup for hypercalcemia was negative for hyperparathyroidism, multiple myeloma, thyroid disorder, and vitamin D deficiency. I would have her stop taking her calcium supplement and recheck with CBC and iron labs in 2-[address] [facility] 08-07-2024 Telephone encounter Note Pt's son calls to request order for HH be faxed to [facility] @ [phone]. Order and pt information faxed as requested. Steph Venegas LPN [facility] 08-07-2024 Miscellaneous Notes Pt's son calls to request order for HH be faxed to [facility] @ [phone]. Order and pt information faxed as requested. Steph Venegas LPN documented in this encounter [facility] 08-07-2024 Instructions Deonte Hamm MD - 08/07/2024 9:26 AM EDT - Continue taking metoprolol 100 mg twice daily, Eliquis 5 mg twice daily, and amlodipine 2.5 mg once daily as prescribed. - Use Zofran for nausea as needed, following the package directions (up to every 8 hours); 30 tablets plus refills have been sent to your [facility] pharmacy. - Continue Miralax one capful twice daily to maintain soft bowel movements. - Eat three small meals daily and use one Glucerna (or similar) nutrition shake per day to support your weight and hydration. - Stop by the lab today for blood work: CBC (including white count and hemoglobin) and kidney function tests. - Monitor your blood pressure and blood sugar at home; call the office if you consistently get blood pressure readings above 140/90. - Arrange home physical therapy visits by speaking with the therapist today before you leave the clinic. - Keep wearing your fall alert necklace at home at all times. 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 - Remember your MRI at the [facility] is scheduled for September 13--plan to arrive as instructed by that facility. - Plan to follow up in about four months (around the end of November) for your next diabetes check (A1c), unless you need care sooner for any new or worsening symptoms. documented in this encounter [facility] 08-07-2024 Note HNO ID: [id number] Author: DEONTE HAMM MD Service: ? Author Type: Physician Type: Progress Notes Filed: 08/07/2024 09:30 Note Text: Chief Complaint Patient presents with: Follow Up Recording using [employer] software for draft documentation of the visit was discussed with the patient/authorized customer counter representative; all questions welcomed and answered. Patient/authorized customer counter representative agreed to proceed HPI Monisha Fitzpatrick is a 78 year old female who presents here today for Above Complaints. Accompanied today by her son. Nausea and Vomiting: - Nausea 3-4 days per week, typically postprandial after breakfast and dinner. - Rare episodes of emesis; last occurrence was a week ago Wednesday. - Taking Zofran PRN with reported efficacy in preventing emesis if taken promptly. - No associated fevers, chills, or abdominal pain. - Denies hematochezia, melena, or diarrhea with mucus. - Noted aversion to previously enjoyed foods; prefers chicken and fish. - Consumes approximately one Glucerna shake per day. Constipation: - Previously hospitalized for fecal impaction. - Currently taking Miralax one capful BID. - Regular bowel movements 1-2 times daily, described as soft. - Not using Senna currently. Atrial Fibrillation: - Diagnosed during recent hospitalization. - Currently on metoprolol 100 mg BID and Eliquis 5 mg BID. - Completed a 14-day Holter monitor study; results pending. - No known episodes of palpitations or irregular heartbeats during monitoring period. - Scheduled for an MRI on September 13. Hypertension: - Previously on losartan; currently taking amlodipine 2.5 mg daily. - Home blood pressure readings generally within normal range, with occasional spikes into the 140s systolic. - Recent reading of 146/80 mmHg in the office. Diabetes: - Blood glucose levels consistently below 120 mg/dL. - Last HbA1c checked 2 months ago was within normal limits. - Weight stable at 132 lbs. Fatigue and Weakness: - Reports persistent fatigue and weakness, particularly in the legs. - Noted improvement in mobility since hospitalization but not at baseline. - Experiencing knee pain, exacerbated by discontinuation of ibuprofen. Past medical history, appointments, medications, allergies reviewed. Previous Medical History PAST MEDICAL HISTORY Diagnosis Date HUSSAIN (acute kidney injury) Aneurysm, thoracic aortic 3.9 cm 06/2024 Aortic ejection murmur 04/06/2014 Arthritis of both knees 01/14/2017 Atrial fibrillation (HCC) Diabetes mellitus with macular edema, both eyes ([facility]) 02/23/2013 Dr. Oliva, Dr. CorreaCnwz-Kyiktn-lecfv Esophageal reflux External hemorrhoids without mention of complication Hearing aid worn Hyperlipidemia LDL goal <100 11/22/2015 Internal hemorrhoids without mention of complication Laryngospasm epi pen Nonproliferative diabetic retinopathy of both eyes ([facility]) 02/23/2013 PMH - PAST MEDICAL HISTORY OF change in bowel habits PMH - PAST MEDICAL HISTORY OF breathing shut down of and on Renal cyst 12/25/2015 right renal cyst Retinal edema 01/23/2014 Left eye - See scanned documents Retinal hemorrhage 07/19/2010 Unspecified constipation Unspecified essential hypertension Vasomotor rhinitis 04/06/2014 Venous (peripheral) insufficiency 08/13/2011 White coat hypertension 05/01/2013 Previous Surgical History PAST SURGICAL HISTORY Procedure Laterality Date CATARACT EXTRACTION HX Bilateral 10/2018, 09/2020 COLONOSCOPY FLX DX W/COLLJ SPEC WHEN PFRMD 08/21/2005 Repeat in FNA WITH IMAGING Right 12/06/2015 U/S FNA right groin PAST SURGICAL HISTORY OF CHILD TONSILS PAST SURGICAL HISTORY OF Left laser surgery to left eye SCREENING COLONSCOPY NOT HIGH RISK 02/2016 normal Family History FAMILY HISTORY Problem Relation Age of Onset other (gallbladder problems) Mother ulcers/stomach problems Emphysema Father ulcers Coronary Artery Disease Father Diabetes Paternal Grandmother Diabetes Paternal Aunt Diabetes Paternal Uncle Diabetes Maternal Uncle Patient Allergies ALLERGIES Allergen Reactions Lisinopril Swelling angioedema Doxycycline GI Upset Nausea w/o vomiting, bad taste Penicillin G Prednisone JITTERY Sulfa (Sulfonamide * Current Medications Current Outpatient Medications on File Prior to Visit Medication Sig metFORMIN (GLUCOPHAGE) 500 mg tablet Take 2 tablets by mouth two times a day with meals. . magnesium oxide (MAG-OX) 400 mg (241.3 mg magnesium) tablet Take 1 tablet by mouth once daily. apixaban (ELIQUIS) 5 mg tab(s) Take 5 mg by mouth two times a day. Senna 8.6 mg tab Take 1 tablet by mouth two times a day as needed for constipation. metoprolol tartrate, short acting, (LOPRESSOR) 100 mg tablet Take 1 tablet by mouth two times a day. ondansetron (ZOFRAN) 4 mg tablet Take 1 tablet by mouth every 8 hours as needed for nausea/vomiting. amLODIPine (NORVASC) 2.5 mg tablet Ta (more content not included)... [facility] 08-07-2024 History of Present illness Narrative Chief Complaint Patient presents with: Follow Up Recording using [employer] software for draft documentation of the visit was discussed with the patient/authorized customer counter representative; all questions welcomed and answered. Patient/authorized customer counter representative agreed to proceed HPI Monisha Fitzpatrick is a 78 year old female who presents here today for Above Complaints. Accompanied today by her son. Nausea and Vomiting: - Nausea 3-4 days per week, typically postprandial after breakfast and dinner. - Rare episodes of emesis; last occurrence was a week ago Wednesday. - Taking Zofran PRN with reported efficacy in preventing emesis if taken promptly. - No associated fevers, chills, or abdominal pain. - Denies hematochezia, melena, or diarrhea with mucus. - Noted aversion to previously enjoyed foods; prefers chicken and fish. - Consumes approximately one Glucerna shake per day. Constipation: - Previously hospitalized for fecal impaction. - Currently taking Miralax one capful BID. - Regular bowel movements 1-2 times daily, described as soft. - Not using Senna currently. Atrial Fibrillation: - Diagnosed during recent hospitalization. - Currently on metoprolol 100 mg BID and Eliquis 5 mg BID. - Completed a 14-day Holter monitor study; results pending. - No known episodes of palpitations or irregular heartbeats during monitoring period. - Scheduled for an MRI on September 13. Hypertension: - Previously on losartan; currently taking amlodipine 2.5 mg daily. - Home blood pressure readings generally within normal range, with occasional spikes into the 140s systolic. - Recent reading of 146/80 mmHg in the office. Diabetes: - Blood glucose levels consistently below 120 mg/dL. - Last HbA1c checked 2 months ago was within normal limits. - Weight stable at 132 lbs. Fatigue and Weakness: - Reports persistent fatigue and weakness, particularly in the legs. - Noted improvement in mobility since hospitalization but not at baseline. - Experiencing knee pain, exacerbated by discontinuation of ibuprofen. Past medical history, appointments, medications, allergies reviewed. Previous Medical History PAST MEDICAL HISTORY Diagnosis Date HUSSAIN (acute kidney injury) Aneurysm, thoracic aortic 3.9 cm 06/2024 Aortic ejection murmur 04/06/2014 Arthritis of both knees 01/14/2017 Atrial fibrillation (HCC) Diabetes mellitus with macular edema, both eyes ([facility]) 02/23/2013 Dr. Oliva, Dr. CorreaUogn-Eeyjgo-wkyus Esophageal reflux External hemorrhoids without mention of complication Hearing aid worn Hyperlipidemia LDL goal <100 11/22/2015 Internal hemorrhoids without mention of complication Laryngospasm epi pen Nonproliferative diabetic retinopathy of both eyes ([facility]) 02/23/2013 PMH - PAST MEDICAL HISTORY OF change in bowel habits PMH - PAST MEDICAL HISTORY OF breathing shut down of and on Renal cyst 12/25/2015 right renal cyst Retinal edema 01/23/2014 Left eye - See scanned documents Retinal hemorrhage 07/19/2010 Unspecified constipation Unspecified essential hypertension Vasomotor rhinitis 04/06/2014 Venous (peripheral) insufficiency 08/13/2011 White coat hypertension 05/01/2013 Previous Surgical History PAST SURGICAL HISTORY Procedure Laterality Date CATARACT EXTRACTION HX Bilateral 10/2018, 09/2020 COLONOSCOPY FLX DX W/COLLJ SPEC WHEN PFRMD 08/21/2005 Repeat in FNA WITH IMAGING Right 12/06/2015 U/S FNA right groin PAST SURGICAL HISTORY OF CHILD TONSILS PAST SURGICAL HISTORY OF Left laser surgery to left eye SCREENING COLONSCOPY NOT HIGH RISK 02/2016 normal Family History FAMILY HISTORY Problem Relation Age of Onset other (gallbladder problems) Mother ulcers/stomach problems Emphysema Father ulcers Coronary Artery Disease Father Diabetes Paternal Grandmother Diabetes Paternal Aunt Diabetes Paternal Uncle Diabetes Maternal Uncle Patient Allergies ALLERGIES Allergen Reactions Lisinopril Swelling angioedema Doxycycline GI Upset Nausea w/o vomiting, bad taste Penicillin G Prednisone JITTERY Sulfa (Sulfonamide * Current Medications Current Outpatient Medications on File Prior to Visit Medication Sig metFORMIN (GLUCOPHAGE) 500 mg tablet Take 2 tablets by mouth two times a day with meals. . magnesium oxide (MAG-OX) 400 mg (241.3 mg magnesium) tablet Take 1 tablet by mouth once daily. apixaban (ELIQUIS) 5 mg tab(s) Take 5 mg by mouth two times a day. Senna 8.6 mg tab Take 1 tablet by mouth two times a day as needed for constipation. metoprolol tartrate, short acting, (LOPRESSOR) 100 mg tablet Take 1 tablet by mouth two times a day. ondansetron (ZOFRAN) 4 mg tablet Take 1 tablet by mouth every 8 hours as needed for nausea/vomiting. amLODIPine (NORVASC) 2.5 mg tablet Take 1 tablet by mouth once daily. blood sugar diagnostic (ACCU-CHEK FAISAL) test strip Test blood sugar(s) one time daily. Dx: E11.9. Insulin: No albuterol HFA (VENTOLIN HFA) 90 mcg/actuation inhaler Inhale 2 Puffs as instructed every 4 hours as needed for wheezing/shortness of breath. atorvastatin (LIPITOR) 20 mg tablet Take 1 tablet by mouth daily at bedtime. For cholesterol. EPINEPHrine (EPIPEN) 0.3 mg/0.3 mL auto-injector 0.3 ml subcutaneously as needed for hypersensitivity reaction fluticasone (FLONASE) 50 mcg/actuation nasal spray Use 2 Sprays in each nostril once daily. ONE TO TWO SPRAYS TO EACH NOSTRIL ONCE DAILY Lancing Device with Lancets (ACCU-CHEK FASTCLIX LANCING DEV) 1 Each as directed. Use as directed. DX: E11.9, Insulin: No Lancets (ACCU-CHEK MULTICLIX LANCET) lancets 1 Each as directed. daily. Use as instructed. Dx 250.00 No insulin ibuprofen (MOTRIN) 400 mg tablet Take 1 tablet by mouth twice daily as needed for Pain. docusate sodium (COLACE) 100 mg capsule Take 100 mg by mouth twice daily. psyllium seed/sucrose(METAMUCIL SMOOTH TEXTURE 28 % PACKET) twicw daily CALCIUM 600 + D 600 MG-125 UNIT TAB Take one(1) tablet two(2) times daily. aflibercept opthalmic intravitreal (EYLEA) 2 mg/0.05 mL soln Use 0.05 mL in the left eye one time only for 1 dose. (Patient not taking: Reported on 08/07/2024) No current facility-administered medications on file prior to visit. Social History Social History Tobacco Use Smoking status: Never Smokeless tobacco: Never Substance Use Topics Alcohol use: No Drug use: No Review of Symptoms REVIEW OF SYSTEMS GENERAL: No weight loss, malaise or fevers RESPIRATORY: Negative for cough, hemoptysis, wheezing, COPD, dyspnea or shortness of breath CARDIOVASCULAR: Negative for chest pain, leg swelling, hypertension, CHF or palpitations GI: See HPI SKIN: Negative for lesions, rash, and itching EXAM: BP 154/86 Pulse 85 Ht 165.1 cm (5' 5) Wt 60.1 kg (132 lb 9.6 oz) SpO2 97% BMI 22.07 kg/m General Appearance: Well appearing, alert, in no acute distress, well-hydrated, well nourished. Skin: Skin color, texture, turgor normal, no suspicious rashes or lesions. Lungs: Lungs clear to auscultation. No wheezing, rhonchi, rales.. Heart: RRR with 2/6 MADHAV. Abdomen: Normal abdominal exam, Abdomen soft, non-tender. Bowel sounds normal. No masses, organomegaly. Extremities: No deformities, edema, skin discoloration, clubbing or cyanosis. Good capillary refill. . Health Maintenance List Depression Screening Never done Anxiety Screening Never done Medicare Annual Wellness Visit Never done Advance Directive Discussion Never done DTaP,Tdap,Td Vaccine(3 - Td or Tdap) due on 06/15/2024 LDL Cholesterol due on 11/30/2024 HbA1C due on 11/30/2024 Urine Albumin:Creatinine Ratio due on 12/02/2024 Dilated Retinal Exam due on 04/11/2025 Diabetic Foot Exam due on 05/31/2025 Annual PCP Team Chronic Disease Visit due on 08/07/2025 Bone Density Screening Completed Influenza Vaccine Completed RSV Vaccine Completed Hepatitis C Screening Completed Shingrix Vaccine Completed Covid-19 Vaccine Completed Pneumococcal Vaccine: 50+ Completed Mammogram Screening Discontinued Colorectal Cancer Screening Discontinued Data reviewed Latest Ref Rng 07/06/2024 WBC 3.70 - 11.00 k/uL 14.58 (H) RBC 3.90 - 5.20 m/uL 3.68 (L) Hemoglobin 11.5 - 15.5 g/dL 10.9 (L) Hematocrit 36.0 - 46.0 % 33.8 (L) MCV 80.0 - 100.0 fL 91.8 MCH 26.0 - 34.0 pg 29.6 MCHC 30.5 - 36.0 g/dL 32.2 RDW-CV 11.5 - 15.0 % 13.2 Platelet Count 150 - 400 k/uL 455 (H) MPV 9.0 - 12.7 fL 10.1 Neut% % 77.9 Abs Neut (ANC) 1.45 - 7.50 k/uL 11.36 (H) Lymph% % 14.5 Abs Lymph 1.00 - 4.00 k/uL 2.12 Bledsoe% % 4.9 Abs Bledsoe <0.87 k/uL 0.71 Eosin% % 1.2 Abs Eosin <0.46 k/uL 0.18 Baso% % 0.8 Abs Baso <0.11 k/uL 0.11 (H) Immature Gran % % 0.7 IMMATURE GRANS (ABS) <0.10 k/uL 0.10 (H) NRBC /100 WBC 0.0 Absolute nRBC <0.01 k/uL <0.01 DTYPE Auto Protein, Total 6.3 - 8.0 g/dL 6.1 (L) Albumin 3.9 - 4.9 g/dL 3.6 (L) Calcium 8.5 - 10.2 mg/dL 10.1 Bilirubin, Total 0.2 - 1.3 mg/dL 0.3 Alkaline Phosphatase 34 - 123 U/L 75 AST 13 - 35 U/L 15 ALT 7 - 38 U/L 14 Glucose 74 - 99 mg/dL 113 (H) BUN 7 - 21 mg/dL 27 (H) Creatinine 0.58 - 0.96 mg/dL 0.99 (H) Sodium 136 - 144 mmol/L 141 Potassium 3.7 - 5.1 mmol/L 4.2 Chloride 98 - 107 mmol/L 100 CO2 22 - 30 mmol/L 30 Anion Gap 8 - 15 mmol/L 11 eGFR >=60 mL/min/1.73m 58 (L) Iron 41 - 186 ug/dL 32 (L) TIBC 232 - 386 ug/dL 330 Transferrin Saturation 15.0 - 57.0 % 9.7 (L) Normalized Calcium 1.08 - 1.30 mmol/L 1.41 (H) Ionized Calcium 1.08 - 1.30 mmol/L 1.27 Retic % 0.4 - 2.0 % 1.5 Abs Retic 0.018 - 0.100 M/uL 0.056 Ferritin 14.7 - 205.1 ng/mL 37.1 Vitamin B12 232 - 1,245 pg/mL 370 Folate >4.7 ng/mL 19.3 LD 135 - 214 U/L 162 TSH 0.270 - 4.200 mIU/L 1.940 Magnesium 1.7 - 2.3 mg/dL 1.5 (L) Legend: (H) High (L) Low 1. Nausea and vomiting, unspecified vomiting type (R11.2) 2. Decreased appetite (R63.0) - Nausea occurring 3-4 days per week, primarily after breakfast and supper; vomiting episodes are rare. - Suspected etiology includes recent initiation of metoprolol and Eliquis for atrial fibrillation. - Continue Ondansetron as needed for nausea, up to every 8 hours. - Refilled Ondansetron prescription with additional refills. - Monitor for resolution of symptoms following potential discontinuation of metoprolol and Eliquis pending cardiology evaluation. - If symptoms persist post-medication adjustment, consider referral to Gastroenterology. 3. Constipation, unspecified constipation type (K59.00) - Resolved with current regimen of Miralax one capful twice daily. - No current use of Senna; bowel movements are soft and occur 1-2 times daily. 4. Essential hypertension, benign (I10) - Current medication: Amlodipine 2.5 mg daily; metoprolol 100 mg BID. Losartan discontinued. - Home blood pressure readings generally within target range, occasional elevations noted. - Blood pressure today: 154/86 - Continue current antihypertensive regimen; monitor home blood pressure readings. Call with updated readings in 1-2 weeks. - Advised to report consistent readings above 140/90 mmHg. 5. Hyperlipidemia LDL goal <100 (E78.5) - Continue current lipid-lowering therapy. 6. Atrial fibrillation, unspecified type (HCC) (I48.91) - Recent onset during hospitalization; currently managed with Metoprolol 100 mg BID and Eliquis 5 mg BID. - Completed 14-day Holter monitor; awaiting results. - Pending cardiology evaluation to determine necessity of continued anticoagulation and rate control. 7. Diabetes mellitus with macular edema, both eyes (HCC) (E11.311) - Blood glucose levels well-controlled, consistently <120 mg/dL. - Last HbA1c checked 2 months ago; within target range. - Next HbA1c due in 4 months; follow-up scheduled for end of November. 8. Leukocytosis, unspecified type (D72.829) - Previous lab work showed elevated WBC count and mild anemia. - Ordered repeat CBC to assess for resolution of leukocytosis and anemia. - Monitor for signs of infection or inflammation. 9. Age-related physical debility (R54) - Noted weakness and difficulty ambulating post-hospitalization; improvement observed but not at baseline. - Referral to home physical therapy initiated to address deconditioning and improve mobility. - Patient equipped with fall alert necklace for safety. Deonte Hamm MD documented in this encounter [facility] 07-28-2024 Telephone encounter Note Christopher informed. Sherry Escamilla MA [facility] 07-28-2024 Miscellaneous Notes Christopher informed. Sherry Escamilla MA Unfortunately, with her a fib we cannot stop her metoprolol or eliquis. I would have her try taking the pills with either the glucerna or pudding and continue with the zofran as needed. Call if symptoms are not improving with this change. Spoke with pt and son, Christopher. Pt states she feels fine today. No nausea. Pt took zofran today, not b/c she was nauseous, but because she was afraid she would get nauseous. Only had vomiting yesterday. Has nausea off and on since before hospital stay. Not every day and no abdominal pain with it. Bowels are moving fine. No fevers. Son wonders if the nausea is caused by the metoprolol or the eliquis. Zofran prevents the nausea from happening. Pt currently takes her pills in applesauce. Asking if it would help if patient trys taking her pills with glucerna or in pudding. Asking if they should try taking a pill away to see if patient does not get nausea. Protocol recommends see provider in 2 weeks. Pt has appt with pcp on 08/07/24. Do you want to see patient sooner? Reason for Disposition Nausea is a chronic symptom (recurrent or ongoing AND present > 4 weeks) Answer Assessment - Initial Assessment Questions 1. NAUSEA SEVERITY: Spoke with sonChristopher, and 3 way conversation with patient. Christopher and patient report patient has been having nausea after morning pills and breakfast. Not every day. Reports pt had nausea prior to hospital stay but at that time she had an infection and constipation and does not have these now. Yesterday patient vomited 6 x's a couple hours after breakfast and taking morning pills. Pt has not had abdominal pain at all. Pt did not take zofran yesterday but had been taking it every morning and found she would not have nausea if she took zofran. Pt is not having nausea today. Took zofran at 10 am today- not b/c she was nauseous but b/c she was afraid she would get nauseous. Pt takes her morning pills at 6 am (amlodipine, miralax, eliquis- new for afib, metformin, colace, caltrate, mag ox, metoprolol-new). Pt takes her pills in applesauce. Pt eats healthy meals with her morning pills, and also with her evening pills she takes at supper time, which is the same as morning pills accept at supper also takes atorvastatin and does not take amlodipine. Pt takes metamucil at noon daily. Pt is not currently having constipation, bowels are moving fine. Pt's BS & BP are terrific: 120/70 (70's) and BS's 100. Pt states she feels fine today. Son reports pt completed the 14 days heart monitor and sent it back yesterday. Reports they may take the eliquis away if the heart monitor does not show a fib. Reports pt was not in a fib when she left the hospital and also not in a fib at her f/u appt. 2. ONSET: Had nausea before hospital stay. Does not get nauseous every day. Unable to tell what is causing it. 3. VOMITING: No vomiting today. Vomited 6 x's yesterday. No vomiting previous days before yesterday, just nausea some days. 4. RECURRENT SYMPTOM: Has nausea off and on and not every day. Does not know what triggers it. Zofran prevents the nausea. 5. CAUSE: Wonders if it is medication. Wonders if patient should try taking her pills with glucerna or pudding, instead of applesauce. Wonders if they should try taking a pill away to see if they nausea does not occur. 6. : N/A Protocols used: [id number] documented in this encounter [facility] 07-28-2024 Telephone encounter Note Unfortunately, with her a fib we cannot stop her metoprolol or eliquis. I would have her try taking the pills with either the glucerna or pudding and continue with the zofran as needed. Call if symptoms are not improving with this change. [facility] 07-28-2024 Telephone encounter Note Spoke with pt and son, Christopher. Pt states she feels fine today. No nausea. Pt took zofran today, not b/c she was nauseous, but because she was afraid she would get nauseous. Only had vomiting yesterday. Has nausea off and on since before hospital stay. Not every day and no abdominal pain with it. Bowels are moving fine. No fevers. Son wonders if the nausea is caused by the metoprolol or the eliquis. Zofran prevents the nausea from happening. Pt currently takes her pills in applesauce. Asking if it would help if patient trys taking her pills with glucerna or in pudding. Asking if they should try taking a pill away to see if patient does not get nausea. Protocol recommends see provider in 2 weeks. Pt has appt with pcp on 08/07/24. Do you want to see patient sooner? Reason for Disposition Nausea is a chronic symptom (recurrent or ongoing AND present > 4 weeks) Answer Assessment - Initial Assessment Questions 1. NAUSEA SEVERITY: Spoke with son, Christopher, and 3 way conversation with patient. Christopher and patient report patient has been having nausea after morning pills and breakfast. Not every day. Reports pt had nausea prior to hospital stay but at that time she had an infection and constipation and does not have these now. Yesterday patient vomited 6 x's a couple hours after breakfast and taking morning pills. Pt has not had abdominal pain at all. Pt did not take zofran yesterday but had been taking it every morning and found she would not have nausea if she took zofran. Pt is not having nausea today. Took zofran at 10 am today- not b/c she was nauseous but b/c she was afraid she would get nauseous. Pt takes her morning pills at 6 am (amlodipine, miralax, eliquis- new for afib, metformin, colace, caltrate, mag ox, metoprolol-new). Pt takes her pills in applesauce. Pt eats healthy meals with her morning pills, and also with her evening pills she takes at supper time, which is the same as morning pills accept at supper also takes atorvastatin and does not take amlodipine. Pt takes metamucil at noon daily. Pt is not currently having constipation, bowels are moving fine. Pt's BS & BP are terrific: 120/70 (70's) and BS's 100. Pt states she feels fine today. Son reports pt completed the 14 days heart monitor and sent it back yesterday. Reports they may take the eliquis away if the heart monitor does not show a fib. Reports pt was not in a fib when she left the hospital and also not in a fib at her f/u appt. 2. ONSET: Had nausea before hospital stay. Does not get nauseous every day. Unable to tell what is causing it. 3. VOMITING: No vomiting today. Vomited 6 x's yesterday. No vomiting previous days before yesterday, just nausea some days. 4. RECURRENT SYMPTOM: Has nausea off and on and not every day. Does not know what triggers it. Zofran prevents the nausea. 5. CAUSE: Wonders if it is medication. Wonders if patient should try taking her pills with glucerna or pudding, instead of applesauce. Wonders if they should try taking a pill away to see if they nausea does not occur. 6. : N/A Protocols used: [id number] [facility] 07-26-2024 Telephone encounter Note Patient UUCUNhart message requesting the following refill. Requested Prescriptions Pending Prescriptions Disp Refills metFORMIN (GLUCOPHAGE) 500 mg tablet 360 tablet 1 Sig: Take 2 tablets by mouth two times a day with meals. . Patient last appointment: 07/06/2024 Patient Phone numbers: [phone] (home) Request is for script(s) to be escript to pharmacy. Sherry Escamilla MA [facility] 07-26-2024 Miscellaneous Notes Patient MyChart message requesting the following refill. Requested Prescriptions Pending Prescriptions Disp Refills metFORMIN (GLUCOPHAGE) 500 mg tablet 360 tablet 1 Sig: Take 2 tablets by mouth two times a day with meals. . Patient last appointment: 07/06/2024 Patient Phone numbers: [phone] (home) Request is for script(s) to be escript to pharmacy. Sherry Escamilla MA documented in this encounter [facility] 07-10-2024 Telephone encounter Note No return call from pt or family member. Per MyChart msg from pt or family member in another encounter on 07/06/24, the rectal pain had subsided. [facility] 07-10-2024 Miscellaneous Notes No return call from pt or family member. Per MyChart msg from pt or family member in another encounter on 07/06/24, the rectal pain had subsided. MyChart msg sent to pt with x-ray results from yesterday with mild-mod stool seen. Pt has been having issues with severe constipation. See yesterday by Dr. Hamm-see note. Pt's son Christopher calling in and states pt took the first dose of the Senna at 6 am this morning and at 7 am had a very good BM for the first time in a long time. Son states that about an hour ago, pt started with some significant rectal pain. She told him she has the urge to have a BM but nothing is coming out. Discussed need to talk with his mom herself. Christopher states his Stephenie is there and he will text and say we will be calling. Attempted the outgoing call x3 with all 3 having continued problems of static. Instructed Stephenie to have the patient call in so we can talk with her about the rectal pain. It appears Stephenie understood the msg and also stated that pt was in the bathroom currently and they will call back if pain continues. Please also see results encounter for information. Due to outgoing call issues, will send another MyChart msg. documented in this encounter [facility] 07-10-2024 Telephone encounter Note Víctor White calls and notified of below. Will try this and if has trouble is going to ask pharmacist about a chewable alternative. Latonia Martin RN [facility] 07-10-2024 Miscellaneous Notes Víctor Christopher calls and notified of below. Will try this and if has trouble is going to ask pharmacist about a chewable alternative. Latonia Martin RN New rx sent for magnesium oxide. Take as directed. Recheck level in 2-3 weeks. documented in this encounter [facility] 07-10-2024 Telephone encounter Note New rx sent for magnesium oxide. Take as directed. Recheck level in 2-[address] [facility] 07-07-2024 Telephone encounter Note MyChart msg sent asking if pt is still having rectal pain as they have not returned the call. [facility] 07-07-2024 Miscellaneous Notes MyChart msg sent asking if pt is still having rectal pain as they have not returned the call. Patient's son notified of results and provider's instructions. Patient's son verbalizes understanding. Son states that the only issue patient has had since yesterday is the rectal pain. Dania Calero RN left for patient's son Christopher to call in to review lab and xray results. Geraldine Romano LPN Sent second UUCUNhart msg to pt due to issues with outgoing calls. UUCUNhart msg sent to pt with x-ray results from yesterday. Pt's son Christopher calling in and states pt took the first dose of the Senna at 6 am this morning and at 7 am had a very good BM for the first time in a long time. Son states that about an hour ago, pt started with some significant rectal pain. She told him she has the urge to have a BM but nothing is coming out. Discussed need to talk with his mom herself. Christopher states his Stephenie is there and he will text and say we will be calling. Attempted the outgoing call x3 with all 3 having continued problems of static. Instructed Stephenie to have the patient call in so we can talk with her about the rectal pain. It appears Stephenie understood the msg and also stated that pt was in the bathroom currently and they will call back if pain continues. documented in this encounter [facility] 07-07-2024 Telephone encounter Note Patient's son notified of results and provider's instructions. Patient's son verbalizes understanding. Son states that the only issue patient has had since yesterday is the rectal pain. Dania Calero RN [facility] 07-07-2024 Telephone encounter Note left for patient's son Christopher to call in to review lab and xray results. Geraldine Romano LPN [facility] 07-07-2024 Telephone encounter Note Sent second MyChart msg to pt due to issues with outgoing calls. [facility] 07-07-2024 Telephone encounter Note MyChart msg sent to pt with x-ray results from yesterday with mild-mod stool seen. Pt has been having issues with severe constipation. See yesterday by Dr. Hamm-see note. Pt's son Christopher calling in and states pt took the first dose of the Senna at 6 am this morning and at 7 am had a very good BM for the first time in a long time. Son states that about an hour ago, pt started with some significant rectal pain. She told him she has the urge to have a BM but nothing is coming out. Discussed need to talk with his mom herself. Christopher states his Stephenie is there and he will text and say we will be calling. Attempted the outgoing call x3 with all 3 having continued problems of static. Instructed Stephenie to have the patient call in so we can talk with her about the rectal pain. It appears Stephenie understood the msg and also stated that pt was in the bathroom currently and they will call back if pain continues. Please also see results encounter for information. Due to outgoing call issues, will send another MyChart msg. [facility] 07-07-2024 Telephone encounter Note MyChart msg sent to pt with x-ray results from yesterday. Pt's son Christopher calling in and states pt took the first dose of the Senna at 6 am this morning and at 7 am had a very good BM for the first time in a long time. Son states that about an hour ago, pt started with some significant rectal pain. She told him she has the urge to have a BM but nothing is coming out. Discussed need to talk with his mom herself. Christopher states his Stephenie is there and he will text and say we will be calling. Attempted the outgoing call x3 with all 3 having continued problems of static. Instructed Stephenie to have the patient call in so we can talk with her about the rectal pain. It appears Stephenie understood the msg and also stated that pt was in the bathroom currently and they will call back if pain continues. [facility] 07-07-2024 Telephone encounter Note Patient was seen for Hospital follow up 07/06/24. Geraldine Romano LPN [facility] 07-07-2024 Miscellaneous Notes Patient was seen for Hospital follow up 07/06/24. Geraldine Romano LPN Updated BP over the weekend? Reviewed discharge summary from [facility] and then called Patient's son to confirm what meds patient was currently taking. Son confirmed he messaged wrong medication as the Losartan was a discontinued medication along with the HCTZ and they increased the metoprolol and added eliquis. Geraldine Romano LPN It looks like they reduced her dosage of losartan from 100 mg daily to 50 mg daily. I would have her increase it back to 100 mg daily to help bring her BP down. Call if BP <100/60 or with new symptoms of lightheadedness/dizziness. documented in this encounter [facility] 07-06-2024 History of Present illness Narrative Radiology Service Progress Note PATIENT NAME: Monisha Fitzpatrick DATE OF SERVICE: July 06, 2024 TIME: 1:11 PM PATIENT IDENTITY VERIFICATION COMPLETED USING TWO (2) IDENTIFIERS: Name and Date of confirmed by patient verbally. FALL SCREENING: Has the patient had 2 falls in the last year or 1 fall with injury or currently using an Ambulatory Assistive Device (Walker, Cane, Wheelchair, Crutches, etc.)? Yes, Patient High Risk for Falls What interventions were put in place to prevent falls during this visit? Offered Assistance with Transfers/Clothing, Instructed Patient to Remain Seated (Not on Exam Table) Until Exam, and Increased Observations by Caregivers PATIENT GENDER DATA: Assigned female at . status: : No status: NO. PATIENT RELEVANT IMPLANT DATA REVIEWED: Yes PATIENT PRESENTS WITH AN IMPLANTABLE OR ATTACHED HEAD AUTOMATIC SAWYER: No RADIOLOGY DEPARTMENT: General X-ray: Exam(s) Completed: Abdomen X-Ray: Abdomen with Upright PERIPHERAL IV DATA: Not applicable SIGNED BY: RT Shikha(R) July 06, 2024 1:11 PM documented in this encounter [facility] 07-06-2024 Note HNO ID: [id number] Author: REBEKAH BARRAZA RT(R) Service: ? Author Type: Iron Cutter Type: Progress Notes Filed: 07/06/2024 13:30 Note Text: Radiology Service Progress Note PATIENT NAME: Monisha Fitzpatrick DATE OF SERVICE: July 06, 2024 TIME: 1:11 PM PATIENT IDENTITY VERIFICATION COMPLETED USING TWO (2) IDENTIFIERS: Name and Date of confirmed by patient verbally. FALL SCREENING: Has the patient had 2 falls in the last year or 1 fall with injury or currently using an Ambulatory Assistive Device (Walker, Cane, Wheelchair, Crutches, etc.)? Yes, Patient High Risk for Falls What interventions were put in place to prevent falls during this visit? Offered Assistance with Transfers/Clothing, Instructed Patient to Remain Seated (Not on Exam Table) Until Exam, and Increased Observations by Caregivers PATIENT GENDER DATA: Assigned female at . status: : No status: NO. 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 - Increase Miralax to one capful in the morning and one capful in the evening; continue Colace twice daily and Metamucil as prescribed. - Add senna (stimulant laxative) up to twice daily as needed if you must strain during bowel movements or are having hard stools. - Aim to drink 64 ounces of water throughout the day to help with constipation and reduce nausea. - For leg and knee discomfort at night, take acetaminophen (Tylenol) up to 1,000 mg three times daily as needed; avoid ibuprofen or other NSAIDs while on Eliquis. - Use Anusol hemorrhoid cream for no more than 7 days, then pause for at least 1 week; you may switch to Preparation H or Tucks wipes afterward. - Obtain an abdominal X-ray today to assess stool burden as instructed. - Have blood drawn for CBC, kidney function, TSH, and magnesium--coordinate timing with any lab orders from cardiology; return as directed for those tests. - Attend your cardiology appointment today at 2:00 pm at [facility] to evaluate your atrial rhythm, review Eliquis management, and discuss any further monitoring. - Keep your September 13 cardiac MRI appointment at the [facility] for further heart evaluation. - Schedule a chest CT in 12 months to follow up on the 4 mm pulmonary nodules. - Follow up in this office in 1 month or sooner if needed. documented in this encounter [facility] 07-06-2024 Note HNO ID: [id number] Author: DEONTE HAMM MD Service: ? Author Type: Physician Type: Progress Notes Filed: 07/06/2024 14:46 Note Text: Chief Complaint Patient presents with: ED Follow-up: [facility] 06/26/24-06/29/24- weakness, nausea, bowel issues Recording using [employer] software for draft documentation of the visit was discussed with the patient/authorized customer counter representative; all questions welcomed and answered. Patient/authorized customer counter representative agreed to proceed HPI Monisha Fitzpatrick is a 78 year old female who presents here today for Above Complaints. Accompanied today by son Christopher and daughter in may. Hospital Follow-Up: - Hospitalized at [facility] from 06/26 to 06/29. - Admitted for nausea, vomiting, constipation, new onset a fib, medication reaction, and acute encephalopathy. - Presented to the ER on 06/26 with nausea and vomiting; had poor appetite for weeks to months prior. - Given bowel prep prior to evaluation, had good bowel movements but still developed nausea and loss of appetite. - Vital signs in the ER were unremarkable except for tachycardia. - EKG showed atrial flutter. - Chemistry panel showed leukocytosis (WBC 18.7), mild anemia (Hgb 11.9), elevated platelet count (479,000). - Acute kidney injury with creatinine 1.47, BUN 55. - UA not consistent with infection; urine culture negative. - Lactic acid elevated at 3.6, resolved with IV fluids. - Troponins elevated at 87, decreased to 72. - Calcium level elevated at 11.7, resolved with IV fluids. 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 - CT chest showed scattered pulmonary nodules (4 mm) with follow-up CT recommended in 12 months and a 3.9 cm ascending thoracic aneurysm with mild cardiomegaly. - Vascular surgery consulted due to the calcified aneurysm in the right common femoral artery; duplex ordered, which was unremarkable. - Vascular surgery felt it was a cystic lesion, no further work required. - Heart Rate remained elevated while inpatient, so metoprolol dosage increased to 100 mg BID. - Losartan dose decreased from 100 to 50 mg daily and was discontinued prior to discharge. - Remained in atrial flutter, started on Eliquis for stroke prevention. - Nausea and vomiting resolved prior to discharge; had good bowel movements. - Adverse reaction to methylprednisolone with delirium for about 36 hours, resolved prior to discharge. - Discharged home with a recommendation to follow up with cardiology for the new-onset atrial fibrillation. - Echocardiogram obtained before discharge with an EF of 70% and mild focal aortic valve calcification, otherwise unremarkable. - Reaction to CT scan contrast with upper lip swelling and flushing; given methylprednisolone. - No swelling since discharge; no trouble breathing or swallowing. - Eating better, smaller meals. - Bowel movements once or twice a day, not full but still going. - Taking Miralax, Caltrate, and Metamucil for constipation. - Nausea typically occurs a few hours after eating and taking morning medications. Had an episode of vomiting 2 days ago. - Drinking water, but not enough; nausea affects fluid intake. - No stomach pain, fevers, or chills. - No blood in stool or dark black stools; stools are darker brown. - Bowel movements require straining; not soft initially. - Swelling in feet noted since discharge; wearing support hose. - Complains of knees and legs hurting, affecting sleep. - No falls reported. - TSH checked during hospitalization, on the lower end of normal. - Seeing , cardiology today for follow-up on atrial fibrillation. - Scheduled for a big MRI for the heart on September 13 for cardiomyopathy. - Taking metoprolol 100 mg twice a day, not extended release. - Not taking losartan anymore; taking amlodipine 2.5 mg once a day. - Taking Eliquis 5 mg twice a day. - No racing heart, palpitations, chest pains, or shortness of breath reported. - Hemorrhoid cream requested; using Anusol cream. - Nausea medicine available, but no refill. Past medical history, appointments, medications, allergies reviewed. Previous Medical History PAST MEDICAL HISTORY Diagnosis Date HUSSAIN (acute kidney injury) Aneurysm, thoracic aortic 3.9 cm 06/2024 Aortic ejection murmur 04/06/2014 Arthritis of both knees 01/14/2017 Atrial fibrillation (HCC) Diabetes mellitus with macular edema, both eyes ([facility]) 02/23/2013 Dr. Oliva, Dr. CorreaLdhe-Fsxthq-yarah Esophageal reflux External hemorrhoids without mention of complication Hearing aid worn Hyperlipidemia LDL goal <100 11/22/2015 Internal hemorrhoids without mention of complication Laryngospasm epi pen Nonproliferative diabetic retinopathy of both eyes ([facility]) 02/23/2013 PMH - PAST MEDICAL HISTORY OF change in bowel habits PMH - PAST MEDICAL HISTORY OF breathing sh (more content not included)... [facility] 07-06-2024 History of Present illness Narrative Chief Complaint Patient presents with: ED Follow-up: [facility] 06/26/24-06/29/24- weakness, nausea, bowel issues Recording using [employer] software for draft documentation of the visit was discussed with the patient/authorized customer counter representative; all questions welcomed and answered. Patient/authorized customer counter representative agreed to proceed HPI Monisha Fitzpatrick is a 78 year old female who presents here today for Above Complaints. Accompanied today by son Christopher and daughter in may. Hospital Follow-Up: - Hospitalized at [facility] from 06/26 to 06/29. - Admitted for nausea, vomiting, constipation, new onset a fib, medication reaction, and acute encephalopathy. - Presented to the ER on 06/26 with nausea and vomiting; had poor appetite for weeks to months prior. - Given bowel prep prior to evaluation, had good bowel movements but still developed nausea and loss of appetite. - Vital signs in the ER were unremarkable except for tachycardia. - EKG showed atrial flutter. - Chemistry panel showed leukocytosis (WBC 18.7), mild anemia (Hgb 11.9), elevated platelet count (479,000). - Acute kidney injury with creatinine 1.47, BUN 55. - UA not consistent with infection; urine culture negative. - Lactic acid elevated at 3.6, resolved with IV fluids. - Troponins elevated at 87, decreased to 72. - Calcium level elevated at 11.7, resolved with IV fluids. 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 - CT chest showed scattered pulmonary nodules (4 mm) with follow-up CT recommended in 12 months and a 3.9 cm ascending thoracic aneurysm with mild cardiomegaly. - Vascular surgery consulted due to the calcified aneurysm in the right common femoral artery; duplex ordered, which was unremarkable. - Vascular surgery felt it was a cystic lesion, no further work required. - Heart Rate remained elevated while inpatient, so metoprolol dosage increased to 100 mg BID. - Losartan dose decreased from 100 to 50 mg daily and was discontinued prior to discharge. - Remained in atrial flutter, started on Eliquis for stroke prevention. - Nausea and vomiting resolved prior to discharge; had good bowel movements. - Adverse reaction to methylprednisolone with delirium for about 36 hours, resolved prior to discharge. - Discharged home with a recommendation to follow up with cardiology for the new-onset atrial fibrillation. - Echocardiogram obtained before discharge with an EF of 70% and mild focal aortic valve calcification, otherwise unremarkable. - Reaction to CT scan contrast with upper lip swelling and flushing; given methylprednisolone. - No swelling since discharge; no trouble breathing or swallowing. - Eating better, smaller meals. - Bowel movements once or twice a day, not full but still going. - Taking Miralax, Caltrate, and Metamucil for constipation. - Nausea typically occurs a few hours after eating and taking morning medications. Had an episode of vomiting 2 days ago. - Drinking water, but not enough; nausea affects fluid intake. - No stomach pain, fevers, or chills. - No blood in stool or dark black stools; stools are darker brown. - Bowel movements require straining; not soft initially. - Swelling in feet noted since discharge; wearing support hose. - Complains of knees and legs hurting, affecting sleep. - No falls reported. - TSH checked during hospitalization, on the lower end of normal. - Seeing , cardiology today for follow-up on atrial fibrillation. - Scheduled for a big MRI for the heart on September 13 for cardiomyopathy. - Taking metoprolol 100 mg twice a day, not extended release. - Not taking losartan anymore; taking amlodipine 2.5 mg once a day. - Taking Eliquis 5 mg twice a day. - No racing heart, palpitations, chest pains, or shortness of breath reported. - Hemorrhoid cream requested; using Anusol cream. - Nausea medicine available, but no refill. Past medical history, appointments, medications, allergies reviewed. Previous Medical History PAST MEDICAL HISTORY Diagnosis Date HUSSAIN (acute kidney injury) Aneurysm, thoracic aortic 3.9 cm 06/2024 Aortic ejection murmur 04/06/2014 Arthritis of both knees 01/14/2017 Atrial fibrillation (HCC) Diabetes mellitus with macular edema, both eyes ([facility]) 02/23/2013 Dr. Oliva, Dr. CorreaCbfd-Wxzefu-qnwvz Esophageal reflux External hemorrhoids without mention of complication Hearing aid worn Hyperlipidemia LDL goal <100 11/22/2015 Internal hemorrhoids without mention of complication Laryngospasm epi pen Nonproliferative diabetic retinopathy of both eyes ([facility]) 02/23/2013 PMH - PAST MEDICAL HISTORY OF change in bowel habits PMH - PAST MEDICAL HISTORY OF breathing shut down of and on Renal cyst 12/25/2015 right renal cyst Retinal edema 01/23/2014 Left eye - See scanned documents Retinal hemorrhage 07/19/2010 Unspecified constipation Unspecified essential hypertension Vasomotor rhinitis 04/06/2014 Venous (peripheral) insufficiency 08/13/2011 White coat hypertension 05/01/2013 Previous Surgical History PAST SURGICAL HISTORY Procedure Laterality Date CATARACT EXTRACTION HX Bilateral 10/2018, 09/2020 COLONOSCOPY FLX DX W/COLLJ SPEC WHEN PFRMD 08/21/2005 Repeat in FNA WITH IMAGING Right 12/06/2015 U/S FNA right groin PAST SURGICAL HISTORY OF CHILD TONSILS PAST SURGICAL HISTORY OF Left laser surgery to left eye SCREENING COLONSCOPY NOT HIGH RISK 02/2016 normal Family History FAMILY HISTORY Problem Relation Age of Onset other (gallbladder problems) Mother ulcers/stomach problems Emphysema Father ulcers Coronary Artery Disease Father Diabetes Paternal Grandmother Diabetes Paternal Aunt Diabetes Paternal Uncle Diabetes Maternal Uncle Patient Allergies ALLERGIES Allergen Reactions Lisinopril Swelling angioedema Doxycycline GI Upset Nausea w/o vomiting, bad taste Penicillin G Prednisone JITTERY Sulfa (Sulfonamide * Current Medications Current Outpatient Medications on File Prior to Visit Medication Sig apixaban (ELIQUIS) 5 mg tab(s) Take 5 mg by mouth two times a day. ondansetron (ZOFRAN) 4 mg tablet Take 1 tablet by mouth every 8 hours as needed for nausea/vomiting. amLODIPine (NORVASC) 2.5 mg tablet Take 1 tablet by mouth once daily. metoprolol succinate ER (TOPROL XL) 50 mg 24 hr tablet Take 1 tablet by mouth once daily. (Patient taking differently: Take 100 mg by mouth two times a day.) blood sugar diagnostic (ACCU-CHEK FAISAL) test strip Test blood sugar(s) one time daily. Dx: E11.9. Insulin: No albuterol HFA (VENTOLIN HFA) 90 mcg/actuation inhaler Inhale 2 Puffs as instructed every 4 hours as needed for wheezing/shortness of breath. metFORMIN (GLUCOPHAGE) 500 mg tablet Take 2 tablets by mouth two times a day with meals. . atorvastatin (LIPITOR) 20 mg tablet Take 1 tablet by mouth daily at bedtime. For cholesterol. fluticasone (FLONASE) 50 mcg/actuation nasal spray Use 2 Sprays in each nostril once daily. ONE TO TWO SPRAYS TO EACH NOSTRIL ONCE DAILY Lancing Device with Lancets (ACCU-CHEK FASTCLIX LANCING DEV) 1 Each as directed. Use as directed. DX: E11.9, Insulin: No aflibercept opthalmic intravitreal (EYLEA) 2 mg/0.05 mL soln Use 0.05 mL in the left eye one time only for 1 dose. Lancets (ACCU-CHEK MULTICLIX LANCET) lancets 1 Each as directed. daily. Use as instructed. Dx 250.00 No insulin ibuprofen (MOTRIN) 400 mg tablet Take 1 tablet by mouth twice daily as needed for Pain. docusate sodium (COLACE) 100 mg capsule Take 100 mg by mouth twice daily. psyllium seed/sucrose(METAMUCIL SMOOTH TEXTURE 28 % PACKET) twicw daily CALCIUM 600 + D 600 MG-125 UNIT TAB Take one(1) tablet two(2) times daily. losartan (COZAAR) 100 mg tablet Take 1 tablet by mouth once daily. (Patient not taking: Reported on 07/06/2024) EPINEPHrine (EPIPEN) 0.3 mg/0.3 mL auto-injector 0.3 ml subcutaneously as needed for hypersensitivity reaction No current facility-administered medications on file prior to visit. Social History Social History Tobacco Use Smoking status: Never Smokeless tobacco: Never Substance Use Topics Alcohol use: No Drug use: No Review of Symptoms REVIEW OF SYSTEMS GENERAL: No weight loss, malaise or fevers RESPIRATORY: Negative for cough, hemoptysis, wheezing, COPD, dyspnea or shortness of breath CARDIOVASCULAR: Negative for chest pain, leg swelling, hypertension, CHF or palpitations GI: See HPI : No history of dysuria, frequency or incontinence SKIN: Negative for lesions, rash, and itching EXAM: BP 128/74 Pulse 72 Resp 14 Wt 60.2 kg (132 lb 12.8 oz) BMI 22.10 kg/m General Appearance: Well appearing, alert, in no acute distress, well-hydrated, well nourished.. Skin: Skin color, texture, turgor normal, no suspicious rashes or lesions. Neck: Supple, no adenopathy; thyroid symmetric, normal size, no bruits. Lungs: Lungs clear to auscultation. No wheezing, rhonchi, rales.. Heart: RRR without murmur, gallop, or rubs. No ectopy. Abdomen: Normal abdominal exam, Abdomen soft, non-tender. Bowel sounds normal. No masses, organomegaly. Extremities: No deformities, edema, skin discoloration, clubbing or cyanosis. Good capillary refill. . Health Maintenance List Depression Screening Never done Anxiety Screening Never done Advance Directive Discussion Never done DTaP,Tdap,Td Vaccine(3 - Td or Tdap) due on 06/15/2024 LDL Cholesterol due on 11/30/2024 HbA1C due on 11/30/2024 Urine Albumin:Creatinine Ratio due on 12/02/2024 Dilated Retinal Exam due on 04/11/2025 Diabetic Foot Exam due on 05/31/2025 Annual PCP Team Chronic Disease Visit due on 07/06/2025 BP Controlled (<130/80) due on 07/06/2025 Bone Density Screening Completed Influenza Vaccine Completed RSV Vaccine Completed Hepatitis C Screening Completed Shingrix Vaccine Completed Covid-19 Vaccine Completed Pneumococcal Vaccine: 50+ Completed Mammogram Screening Discontinued Colorectal Cancer Screening Discontinued Data reviewed Labs and imaging from her hospitalization. 1. Acute constipation (K59.00) 2. Fecal impaction (HCC) (K56.41) - Persistent constipation with incomplete bowel movements and straining; recent hospital admission revealed fecal impaction in the rectosigmoid colon. - Current regimen includes Miralax 2 capfuls once daily, Metamucil, and Colace twice daily. - Increased Miralax to 1 capful twice daily. - Initiated Senna laxative up to twice daily as needed for constipation. - Ordered abdominal X-ray to assess for residual stool. - Advised adequate hydration to facilitate bowel movements. 3. Atrial fibrillation, unspecified type (HCC) (I48.91) 4. Chronic anticoagulation (Z79.01) - New onset atrial fibrillation diagnosed during hospitalization; currently on Eliquis 5 mg BID for stroke prevention. - Metoprolol tartrate 100 mg BID for rate control. - Discontinued losartan; continue amlodipine 2.5 mg daily. - No episodes of palpitations, chest pain, or dyspnea reported. - Advised against use of NSAIDs like ibuprofen due to increased bleeding risk; recommended Tylenol up to 1000 mg TID for pain management. - Follow-up with cardiology scheduled today. - Ordered repeat TSH and magnesium levels to evaluate potential contributing factors. 5. Nausea and vomiting, unspecified vomiting type (R11.2) - Nausea persists, particularly postprandial; no recent vomiting episodes. - Eating three small meals daily; weight slightly decreased since hospitalization. - Suspected contributing factor is incomplete bowel evacuation. - Continue current antiemetic medication as needed. 6. [id number] adverse effect of medication, subsequent encounter (T88.7XXD) 7. Delirium (R41.0) - Experienced upper lip swelling and flushing post-CT contrast administration; treated with methylprednisolone, which led to delirium for approximately 36 hours. - Symptoms resolved prior to discharge; no current edema or respiratory issues. - Advised to avoid methylprednisolone in the future due to adverse reaction. 8. Aneurysm of ascending aorta without rupture (I71.21) - CT chest revealed a 3.9 cm ascending thoracic aneurysm with mild cardiomegaly. - Follow-up CT recommended in 12 months. - Continue monitoring with cardiology; maintain scheduled MRI on September 13. 9. External hemorrhoids (K64.4) - Prescribed Anusol cream; advised to use for no more than 7 days at a time to prevent skin thinning and scarring. - Recommended Tucks pads and Preparation H for symptomatic relief. - Refill for Anusol cream provided with instructions to take a break for at least a week between uses. 10. Essential hypertension, benign (I10) - Blood pressure readings improving; continue amlodipine 2.5 mg daily. - Discontinued losartan. - Monitor blood pressure regularly. 11. Acute kidney injury (N17.9) - Hospitalization labs showed creatinine 1.47 mg/dL and BUN 55 mg/dL. - Ordered repeat blood work to assess renal function. - Ensure adequate hydration. I spent a total of 40 minutes on the date of the service which included preparing to see the patient, [id number] patient care, completing clinical documentation, obtaining and/or reviewing separately obtained history, performing a medically appropriate examination, counseling and educating the patient/family/caregiver, and ordering medications, tests, or procedures. Deonte Hamm MD documented in this encounter [facility] 07-04-2024 Telephone encounter Note Pt's son Christopher calling in to update Dr. Hamm. States pt was in [facility] last week from 06/26-06/29. He scheduled a follow up appt with Dr. Hamm via Dro[employer] this coming . This was for only a 20 min appt. Geraldine from Dr. Hamm has already called and spoken to Christopher and the appt is now 40 min long and she has records from [facility] stay. Christopher states pt was diagnosed with Afib during the admission and is now on Eliquis. He states she had several medication changes. Since then, it appears some of the medication is giving her a bad taste in her mouth. So bad that she is nauseated and doesn't want to eat. Yesterday evening she even vomited and couldn't take her evening meds. Christopher is wondering if maybe one of the new meds is causing this and can they change it. Pt also is now seeing Dr. Barahona with [facility]. She is seeing him at [address] Hamm's appt on . Explained that no med changes can be done at this time. Will have to review at appt with Dr. Hamm and with Dr. Barahona depending on medications. They feel it is med related that she is not feeling well as she felt fine this morning until she took her meds and now she is feeling poorly again with the bad taste in her mouth and feeling sick to her stomach. Christopher also states that pt had a CT scan and had an allergic reaction to the contrast. Pt already had an allergy to Prednisone so they gave her some other type of steroid treatment and she had a reaction to that as well. Pt was also in hospital for impacted bowels which has improved but they had mentioned to Christopher that the Ondansetron that pt was taking could have made her constipated as well. Son asking if it would be okay if she took another one of those today to see if that helps her. Informed that one should be okay. He states pt is now on Miralax daily and Dulcolax stool softener twie daily. [facility] 07-04-2024 Miscellaneous Notes Pt's son Christopher calling in to update Dr. Hamm. States pt was in [facility] last week from 06/26-06/29. He scheduled a follow up appt with Dr. Hamm via Dro[employer] this coming . This was for only a 20 min appt. Geraldine from Dr. Hamm has already called and spoken to Christopher and the appt is now 40 min long and she has records from [facility] stay. Christopher states pt was diagnosed with Afib during the admission and is now on Eliquis. He states she had several medication changes. Since then, it appears some of the medication is giving her a bad taste in her mouth. So bad that she is nauseated and doesn't want to eat. Yesterday evening she even vomited and couldn't take her evening meds. Christopher is wondering if maybe one of the new meds is causing this and can they change it. Pt also is now seeing Dr. Barahona with [facility]. She is seeing him at [address] Hamm's appt on . Explained that no med changes can be done at this time. Will have to review at appt with Dr. Hamm and with Dr. Barahona depending on medications. They feel it is med related that she is not feeling well as she felt fine this morning until she took her meds and now she is feeling poorly again with the bad taste in her mouth and feeling sick to her stomach. Christopher also states that pt had a CT scan and had an allergic reaction to the contrast. Pt already had an allergy to Prednisone so they gave her some other type of steroid treatment and she had a reaction to that as well. Pt was also in hospital for impacted bowels which has improved but they had mentioned to Christopher that the Ondansetron that pt was taking could have made her constipated as well. Son asking if it would be okay if she took another one of those today to see if that helps her. Informed that one should be okay. He states pt is now on Miralax daily and Dulcolax stool softener twie daily. documented in this encounter [facility] 07-04-2024 Telephone encounter Note Updated BP over the weekend? [facility] 07-04-2024 Note HNO ID: [id number] Author: DEONTE HAMM MD Service: ? Author Type: Physician Type: Progress Notes Filed: 07/04/2024 07:22 Note Text: Reviewed. [facility] 07-04-2024 History of Present illness Narrative Reviewed. TRANSITION CARE MANAGEMENT (TCM) INITIAL CONTACT Integration Developer Outreach Provider Action/FYI: n/a Initial contact with patient post discharge, spoke to son. Patient identified by name and . TRANSITION CARE MANAGEMENT INITIAL OUTREACH DOCUMENTATION: 06/30/2024 Date of Outreach: Outreach Attempt 1: Contact Made Date of Discharge 06/29/2024 SUMMARY: -Pt discharged from [facility] on 06/29/24. -Admitted for: Afib Do you have a hospital follow up appointment with your PCP? Appointment on 07/06/[address] Hamm. Yes. Remind patient of appointment date, time, and location. If not within 14 calendar days of discharge - please reschedule accordingly. MEDICATIONS: Many patients have questions or concerns about their medications once they are home. Were you prescribed any new medications? Yes- eliquis and increased metoprolol Were you told to hold any medications? No Were any of your medications discontinued? Yes-losartan, zofran and HCTZ Do you have any questions about getting or taking your medications? No Your discharge instructions/After visit Summary (AVS) are important in guiding you through the recovery process. Is there anything I might help you understand? No Do you have all the necessary equipment and supplies at home? Yes Medical records from recent hospitalization: Placed for provider to review documented in this encounter [facility] 06-30-2024 Telephone encounter Note Reviewed discharge summary from [facility] and then called Patient's son to confirm what meds patient was currently taking. Son confirmed he messaged wrong medication as the Losartan was a discontinued medication along with the HCTZ and they increased the metoprolol and added eliquis. Geraldine Romano LPN [facility] 06-30-2024 Note HNO ID: [id number] Author: GERALDINE ROMANO LPN Service: ? Author Type: LICENSED NURSE Type: Progress Notes Filed: 07/05/2024 10:09 Note Text: TRANSITION CARE MANAGEMENT (TCM) INITIAL CONTACT Integration Developer Outreach Provider Action/FYI: n/a Initial contact with patient post discharge, spoke to son. Patient identified by name and . TRANSITION CARE MANAGEMENT INITIAL OUTREACH DOCUMENTATION: 06/30/2024 Date of Outreach: Outreach Attempt 1: Contact Made Date of Discharge 06/29/2024 SUMMARY: -Pt discharged from [facility] on 06/29/24. -Admitted for: Afib Do you have a hospital follow up appointment with your PCP? Appointment on 07/06/[address] Hamm. Yes. Remind patient of appointment date, time, and location. If not within 14 calendar days of discharge - please reschedule accordingly. MEDICATIONS: Many patients have questions or concerns about their medications once they are home. Were you prescribed any new medications? Yes- eliquis and increased metoprolol Were you told to hold any medications? No Were any of your medications discontinued? Yes-losartan, zofran and HCTZ Do you have any questions about getting or taking your medications? No Your discharge instructions/After visit Summary (AVS) are important in guiding you through the recovery process. Is there anything I might help you understand? No Do you have all the necessary equipment and supplies at home? Yes Medical records from recent hospitalization: Placed for provider to review [facility] 06-30-2024 Telephone encounter Note It looks like they reduced her dosage of losartan from 100 mg daily to 50 mg daily. I would have her increase it back to 100 mg daily to help bring her BP down. Call if BP <100/60 or with new symptoms of lightheadedness/dizziness. [facility] 06-30-2024 Note Patient Outreach (FA MPWS) MONISHA FITZPATRICK ([id number]) 1945 F Date Time Provider Department 06/30/24 GERALDINE ROMANO During your visit today, we recorded the following information about you: Geraldine Romano LPN 07/05/2024 10:09 AM Signed TRANSITION CARE MANAGEMENT (TCM) INITIAL CONTACT Integration Developer Outreach Provider Action/FYI: n/a Initial contact with patient post discharge, spoke to son. Patient identified by name and . TRANSITION CARE MANAGEMENT INITIAL OUTREACH DOCUMENTATION: 06/30/2024 Date of Outreach: Outreach Attempt 1: Contact Made Date of Discharge 06/29/2024 SUMMARY: -Pt discharged from [facility] on 06/29/24. -Admitted for: Afib Do you have a hospital follow up appointment with your PCP? Appointment on 07/06/[address] Hamm. Yes. Remind patient of appointment date, time, and location. If not within 14 calendar days of discharge - please reschedule accordingly. MEDICATIONS: Many patients have questions or concerns about their medications once they are home. Were you prescribed any new medications? Yes- eliquis and increased metoprolol Were you told to hold any medications? No Were any of your medications discontinued? Yes-losartan, zofran and HCTZ Do you have any questions about getting or taking your medications? No Your discharge instructions/After visit Summary (AVS) are important in guiding you through the recovery process. Is there anything I might help you understand? No Do you have all the necessary equipment and supplies at home? Yes Medical records from recent hospitalization: Placed for provider to review Deonte Hamm MD 07/04/2024 7:22 AM Signed Reviewed. Allergies As of Date: 06/30/2024 Noted Allergy Reaction LISINOPRIL 02/06/2012 7 - Swelling Comments: angioedema DOXYCYCLINE 05/18/2017 8 - GI Upset Comments: Nausea w/o vomiting, bad taste PENICILLIN G 01/05/2005 PREDNISONE 01/07/2005 Comments: ROMEL KRISHNAMURTHY (SULFONAMIDE ANTIBIOTICS) 01/05/2005 Date Reviewed: 06/21/2024 Reviewed by: Geraldine Romano LPN - Fully Assessed Reason for Visit: Transition Of Care [4074] Prescriptions as of 07/05/2024 - hydrocortisone (ANUSOL-HC) 2.5 % rectal cream by RECTAL route two times a day for 7 days. - ondansetron (ZOFRAN) 4 mg tablet Take 1 tablet by mouth every 8 hours as needed for nausea/vomiting. - amLODIPine (NORVASC) 2.5 mg tablet Take 1 tablet by mouth once daily. - metoprolol succinate ER (TOPROL XL) 50 mg 24 hr tablet Take 1 tablet by mouth once daily. - blood sugar diagnostic (ACCU-CHEK FAISAL) test strip Test blood sugar(s) one time daily. Dx: E11.9. Insulin: No - albuterol HFA (VENTOLIN HFA) 90 mcg/actuation inhaler Inhale 2 Puffs as instructed every 4 hours as needed for wheezing/shortness of breath. - losartan (COZAAR) 100 mg tablet Take 1 tablet by mouth once daily. - metFORMIN (GLUCOPHAGE) 500 mg tablet Take 2 tablets by mouth two times a day with meals. . - atorvastatin (LIPITOR) 20 mg tablet Take 1 tablet by mouth daily at bedtime. For cholesterol. - EPINEPHrine (EPIPEN) 0.3 mg/0.3 mL auto-injector 0.3 ml subcutaneously as needed for hypersensitivity reaction - fluticasone (FLONASE) 50 mcg/actuation nasal spray Use 2 Sprays in each nostril once daily. ONE TO TWO SPRAYS TO EACH NOSTRIL ONCE DAILY - Lancing Device with Lancets (ACCU-CHEK FASTCLIX LANCING DEV) 1 Each as directed. Use as directed. DX: E11.9, Insulin: No - aflibercept opthalmic intravitreal (EYLEA) 2 mg/0.05 mL soln Use 0.05 mL in the left eye one time only for 1 dose. - Lancets (ACCU-CHEK MULTICLIX LANCET) lancets 1 Each as directed. daily. Use as instructed. Dx 250.00 No insulin - ibuprofen (MOTRIN) 400 mg tablet Take 1 tablet by mouth twice daily as needed for Pain. - docusate sodium (COLACE) 100 mg capsule Take 100 mg by mouth twice daily. - psyllium seed/sucrose(METAMUCIL SMOOTH TEXTURE 28 % PACKET) twicw daily - CALCIUM 600 + D 600 MG-125 UNIT TAB Take one(1) tablet two(2) times daily. Problem List As Of Date 06/30/2024 Noted Resolved HYPERLIPIDEMIA NEC/NOS [E78.5] 05/12/2005 11/16/2014 BENIGN HYPERTENSION [I10] 05/12/2005 External hemorrhoids without mention of complic* 03/08/2014 Internal hemorrhoids without mention of complic* 03/08/2014 Type II or unspecified type diabetes mellitus w*10/10/2007 02/23/2013 LUMB DISC DIS W MYELOPAT [M51.06] 11/17/2007 VOCAL CORD DISEASE NEC [J38.3] 11/17/2007 Retinal hemorrhage [H35.60] 07/19/2010 01/13/2018 Venous (peripheral) insufficiency [I87.2] 08/13/2011 Nonproliferative diabetic retinopathy of both e*02/23/2013 Diabetes mellitus with macular edema, both eyes*02/23/2013 Vasomotor rhinitis [J30.0] 04/06/2014 Aortic ejection murmur [I35.1] 04/06/2014 Hyperlipidemia LDL goal <100 [E78.5] 11/22/2015 Groin mass in female [R19.09] 12/02/2015 Renal cyst [N28.1] (more content not included)... [facility] 06-29-2024 Note [facility] Medical Records Department [address] [place] [address] Discharge Summary 06/29/24 0823 MR#: [id number] Acct: [id number] Name: MONISHA FITZPATRICK Rep #: [id number] : 1945 78 From: Yumiko Grande DO PCP: Dr. Adrian Hamm MD Status:ADM IN Location: [place] [address] Providers Date of Admission: 06/26/24 Date of Discharge: 06/29/24 Primary Care Physician: Dr. Adrian Hamm MD Consultations 06/26/24 20:19 Consult: Vascular Surgery Routine Consulting Provider: Taiwo Topete Reason for Consult: right groin abnormality EMERGENT Consult: No MD Notified: Yes Date Notified: 06/26/24 Time Notified: 18:23 Method of Notification: Verbal Reason For Visit: N/V, POOR PO Diagnosis Discharge Diagnosis (1) Nausea and vomiting: Status: Acute Code(s): R11.2 - Nausea with vomiting, unspecified (2) Constipation: Status: Acute Code(s): K59.00 - Constipation, unspecified (3) Adverse drug reaction: Status: Acute Code(s): T50.905A - Adverse effect of unspecified drugs, medicaments and biological substances, initial encounter (4) Toxic metabolic encephalopathy: Status: Acute Code(s): G92.8 - Other toxic encephalopathy Medications at Discharge Home Medications aflibercept 2 mg/0.05 mL intravitreal solution for injection 2 mg intravitreal ONCE EYES 05/17/24 albuterol sulfate 90 mcg/actuation aerosol inhaler 2 puff inhalation Q4-6H PRN SOB 05/17/24 atorvastatin 20 mg tablet 20 mg PO QHS CHOLESTEROL 05/17/24 calcium carbonate-vitamin D2-minerals tablet tab PO BID SUPPLEMENT 05/17/24 docusate sodium 100 mg capsule 100 mg PO BID STOOL SOPFTENER 05/17/24 epinephrine 0.3 mg/0.3 mL injection, auto-injector 0.3 mg IM Q5-15M PRN bronchodilation 05/17/24 fluticasone propionate 50 mcg/actuation nasal spray,suspension (Allergy Relief (fluticasone)) 2 spray intranasal QDAY SINUSES 05/17/24 metformin 500 mg tablet 1,000 mg PO BID DIABETES 05/17/24 psyllium seed (sugar) oral powder (Fiber Therapy (psyllium seed-sucrose) oral powder) 1 tbsp PO BID SUPPLEMENT 05/17/24 amlodipine 2.5 mg tablet 2.5 mg PO QDAY BLOOD PRESSURE #30 tabs 06/06/24 metoprolol succinate 25 mg tablet,extended release 24 hr 25 mg PO DAILY BLOOD PRESSURE 06/26/24 apixaban 5 mg tablet (Eliquis) 5 mg PO BID #60 tabs 06/29/24 metoprolol tartrate 100 mg tablet 100 mg PO BID #60 tabs 06/29/24 Hospital Course Procedures EKG and - (Chest x-ray/CT abdomen pelvis/CT chest/lower extremity duplex) Summary of Care Provided Minutes Spent on Discharge: 38 Hospital Course: Mrs. Marshall is a 78-year-old white female who presented to the emergency department at [facility] on 06/26/2024 with a chief complaint of nausea and vomiting. Family reported she had been having some problems with poor appetite over weeks to months prior to presentation. She was recently given a bowel prep and was cleaned out and having a good bowel movements however she again developed nausea and loss of appetite so she came in for further evaluation management. Vital signs in the emergency department were unremarkable other than tachycardia. EKG showed patient was in atrial flutter. Chemistry panel showed a leukocytosis with a white count of 18.7, mild anemia with hemoglobin 11.9 and a mildly elevated platelet count at 479,000. She demonstrated HUSSAIN with a BUN of 55 and a serum creatinine of 1.47. Blood sugar was 187. Her UA was not consistent with infection. Urine was sent for culture and resulted negative for any growth. Her initial lactic acid was elevated at 3.6 but quickly resolved with IV fluids and the repeat was 1.3. Her initial troponin was 87 however delta troponin decreased to 72. Initial calcium was 11.7 however this resolved with IV fluids. Ionized calcium was elevated but it seems that her hypercalcemia was related to dehydration. 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 CT of the chest was performed and showed scattered pulmonary nodules of 4 mm inside with follow-up CT recommended in 12 months and a 3.9 cm ascending thoracic aneurysm and mild cardiomegaly but was otherwise unremarkable. TSH was performed and normal. Vascular surgery was consulted due to the calcified aneurysm in her right common femoral artery and a duplex was ordered which was unremarkable. Vascular surgery felt that this was a cystic lesion and no further workup was required. There is no concern for vascular etiology. Her heart rate remained intermittently elevated so we did uptitrate her beta-diogo. We transitioned her from extended release metoprolol to twice daily metoprolol tartrate for extended effect as it did seem to be that her extended release beta-diogo was wearing off early prior (more content not included)... [facility] 06-26-2024 Radiology Diagnostic study note [facility] Imaging Services [address] [place] [id number] Chest without Contrast MR#: [id number] Acct: [id number] Name: MONISHA FITZPATRICK Rep #: [id number] : 1945 F 78 From: Abby Yeager MD PCP: Dr. Adrian Hamm MD Status: ADM IN Study:Chest without Contrast Date of Exam: 06/26/24 Exam# [id number] Ordering Dr: Natalia Mireles DO PROCEDURE: CHEST WITHOUT CONTRAST 06/26/2024 REASON FOR EXAM: ELEVATED WBC UNKOWN ETIOLOGY TECHNIQUE: Chest CT without contrast. Coronal and Sagittal reconstruction series were provided. One or more dose reduction techniques were used (e.g., Automated exposure control, adjustment of the mA and/or kV according to patient size, use of iterative reconstruction technique RADIATION DOSE SUMMARY: CTDlvol: 6.3 mGy DLP: 228 mGycm COMPARISON: Same day chest radiograph and CT abdomen/pelvis FINDINGS: Lymph nodes: No significant lymphadenopathy. Heart and Vasculature: Mildly enlarged. Mild multivessel coronary calcifications, in addition to aortic valvular calcification. The ascending thoracic aorta measures 3.9 cm in diameter. Moderate aortic atherosclerosis. Lungs and Airways: Central airways are predominantly clear. Mild biapical scarring. No focal consolidation. There are few tiny pulmonary nodules, for example in the left upper lobe measuring 4 mm (series 4 image 70). Pleura: No pleural effusion. Upper Abdomen: See same day CT abdomen and pelvis for detailed report. Bones: Degenerative changes and rightward curvature of the thoracic spine. CT/Chest without Contrast IMPRESSION: 1. No acute cardiopulmonary abnormality. 2. Scattered pulmonary nodules measuring up to 4 mm in size. Consider CT chestin 12 months if patient is high-risk per Fleischner society guidelines. 3. Ascending thoracic aorta measures 3.9 cm in diameter. 4. Mild cardiomegaly. Reading Location: [id number] CC: Dr. Adrian Hamm MD; Dr. Jordy Mireles DO ~ Facilities Custodian: Signed [facility] 06-26-2024 Discharge summary [facility] 06-26-2024 Discharge summary Note Date/Time June 26, 2024 4:25pm [facility] Medical Records Department [address] [place] [id number] Emergency Department Summary 06/26/24 MR#: [id number] Acct: [id number] Name: MONISHA FITZPATRICK Rep #:[id number] : 1945 78 From: Joryd Mireles DO PCP: Dr. Adrian Hamm MD Status :REG ER Location: ED HPI History of Present Illness Chief Complaint: Nausea/Vomiting Narrative Narrative: Patient is a 78-year-old female with past medical history of venous insufficiency, hyperlipidemia, GERD, diabetes who presented to the emergency department the chief complaint of abdominal pain. According to the patient's family member at bedside for the last several weeks to months she has had off and on appetite. He states that some days she will and eat other days she will not. He states that recently she was given a bowel prep. She states that shethought she cleaned out with this as she was having good bowel movements. He states that recently again she developed nausea and loss of appetite with abdominal pain therefore he brought her here for further evaluation management. [facility] Medical History Disorder of bone, unspecified Unintentional weight loss Fatigue White coat syndrome with hypertension Venous (peripheral) insufficiency Vasomotor rhinitis Unspecified essential hypertension Unspecified constipation Retinal hemorrhage Retinal edema Renal cyst Nonproliferative diabetic retinopathy of both eyes Laryngospasm Internal hemorrhoids without mention of complication Hyperlipidemia LDL goal <100 Hearing aid worn External hemorrhoids without mention of complication Esophageal reflux disease Diabetes mellitus with macular edema, both eyes Arthritis of both knees Aortic ejection murmur Home Medications ?Medication ?Instructions ?Recorded ?Last Taken ?Type aflibercept 2 mg/0.05 mL 2 mg intravitreal ONCE 05/17 Unknown History intravitreal solution for injection albuterol sulfate 90 mcg/actuation 2 puff inhalation Q 4-6H PRN 05/17/24 Unknown History aerosol inhaler atorvastatin 20 mg tablet 20 mg PO QHS 05/17/24 Unknow n History calcium carbonate-vitamin tab PO BID 05/17/24 Unknown History D2-minerals tablet docusate sodium 100 mg capsule 100 mg PO BID 05/17/24 Unknown History epinephrine 0.3 mg/0.3 mL 0.3 mg IM Q5-15M PRN 5 Unknown History injection, auto-injector fluticasone propionate 50 2 spray intranasal QDAY 11/02 Unknown History mcg/actuation nasal spray,suspension (Allergy Relief (fluticasone)) losartan 100 mg tablet 100 mg PO QDAY 05/17/24 Unkn own History metformin 500 mg tablet 1,000 mg PO BID 05/17/24 Unk nown History psyllium seed (sugar) oral powder 1 tbsp PO BID Unknown History (Fiber Therapy (psyllium seed-sucrose) oral powder) metoprolol succinate 50 mg 50 mg PO QDAY #90 tabs 05/09 09/01 Unknown Rx tablet,extended release 24 hr amlodipine 2.5 mg tablet 2.5 mg PO QDAY #30 tabs 05/10 11/02 Unknown Rx hydrochlorothiazide 12.5 mg capsule 12.5 mg PO DAILY 0 06/26/24 Unknown History metoprolol succinate 25 mg 25 mg PO DAILY 06/26/24 Unk nown History tablet,extended release 24 hr ondansetron HCl 4 mg tablet 4 mg PO Q8H PRN PRN nausea /vomiting 06/26/24 Unknown History Allergy/AdvReac Type Severity Reaction Status Date / Time lisinopril Allergy Severe Angioedema Verified 06/26/24 11:04 penicillin G Allergy Unknown PT UNSURE Verified 06/26/24 11:04 OF REACTION Sulfa (Sulfonamide Allergy Unknown PT UNSURE Verified 06/26/24 11:04 Antibiotics) OF REACTION doxycycline AdvReac Intermediate Nausea Verified 06/26/24 11:04 prednisone AdvReac Mild Other Verified 06/26/24 11:04 Family History Mother Stomach ulcer Father CAD (coronary artery disease) Emphysema, unspecified Grandmother Diabetes Aunt Diabetes Uncle Diabetes Surgical History History of surgical procedure on eye proper using laser History of tonsillectomy History of colonoscopy History of cataract extraction Social History Smoking Status: Never smoker alcohol intake: never substance use type: does not use ROS ROS ED ROS Narrative Constitutional: Denies fevers, chills, headaches, lightness, dizziness Eyes: Denies change in vision double vision blurry vision Cardiovascular: Denies chest pain Respiratory: Denies shortness of breath Abdomen: Complains of abdominal pain and nausea as noted above : Denies any urinary symptoms Neurological: Denies numbness, weakness, tingling Musculoskeletal: Denies back pain Skin: Denies any rashes or lesions EXAM Physical Exam Narrative Exam Narrative: General: Patient was lying in bed rest comfortably did not appear to be in acutedistress Head: Atraumatic, normocephalic Eyes: PERRL bilaterally, EOMI bilateral, no conjunctival injection noted Neck: Soft, supple, trachea midline Cardiovascular: Regular rate and rhythm no murmurs gallops rubs noted Respiratory: Clear to auscultation bilaterally no rales rhonchi or wheezes noted Abdomen: Soft, nondistended, diffuse tenderness to palpation no rebound or guarding on exam Extremities: +5/5 strength noted in the bilateral upper and lower extremities Neurological: Patient following commands that she was at [facility] years 2024 Skin: Warm, dry, tact no rashes or lesions noted Const Vital Signs: 06/26/24 11:00 06/26/24 11:23 06/26/24 12:29 Temperature 96.8 F L Temperature Source Temporal Pulse Rate 36 L 101 H 95 Respiratory Rate 20 H 19 H 12 Blood Pressure 80/64 L 123/66 H Blood Pressure Mean 69 85 Pulse Ox 99 97 98 Oxygen Delivery Method Room Air Room Air 06/26/24 12:30 06/26/24 12:45 06/26/24 13:00 Temperature Temperature Source Pulse Rate 94 94 97 Respiratory Rate 11 L 19 H 24 H Blood Pressure 113/94 H 136/65 H 109/91 H Blood Pressure Mean 101 86 97 Pulse Ox 98 96 95 Oxygen Delivery Method Room Air 06/26/24 13:15 06/26/24 13:16 06/26/24 14:29 Temperature 97.9 F Temperature Source Oral Pulse Rate 88 92 81 Respiratory Rate 16 18 18 Blood Pressure 140/78 H 149/75 H Blood Pressure Mean 97 99 Pulse Ox 98 96 95 Oxygen Delivery Method Room Air Room Air MDM MDM MDM Narrative Medical decision making narrative: Patient is a 78-year-old female who presented to the emergency department chief complaint abdominal pain nausea and concern for dehydration. On the differential diagnose includes but not limited to bowel obstruction, pancreatitis, diverticulitis, tendinitis, constipation. Once workup is obtainedreviewed she will be reevaluated. Patient CBC was significant leukocytosis of 18,000 and, patient's hemoglobin 11.9, platelet count was 479. Patient INR normal at 1, PT of 13.5. Patient sodium normal 134, Tessman 3.4, creatinine was elevated of 1.47. Patient's lactic acid elevated 3.6, calcium elevated 11.7 with ionized calcium high at 1.40. Patient AST and ALT were 32 and 16 respectively, troponin was 87 with a delta troponin obtained at 78, EKG was reviewed and showed atrial fibrillation with a rate of 90 bpm. Patient is not on any blood thinning medications, lipasenormal at 29, urinalysis reviewed showed no evidence of infection. Patient chest x-ray reviewed by myself by radiology which showed no acute cardiopulmonary processes. 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 Fecal impaction in the rectum soft tissue density seen in the region of the perineum questionable rectal prolapse clinical correlation recommended. Did perform rectal exam patient has soft stool noted in the rectal vault no concern for impaction and no concerns for rectal prolapse at this point time. Patient does have erythematous skin noted near the rectal region that appears irish irritated from bowel movements and she is noted to have hemorrhoids as well. At this point in time will discuss case with hospitalist for admission for new onset A-fib, given her white count of unknown etiology, lactic acidosis, needingof cleanout At 4:00 PM there is no identifiable source of infection therefore no antibioticsindicated at this point time. Reperfusion assessment was performed and the patient remains normotensive to hypertensive no vasopressors indicated. Discussed case with hospitalist Dr. Vazquez to accept patient for admission. After discussion with her we have no identifiable source infection at this pointtime therefore we will add a CT chest on without contrast and wait antibiotic dosing per the result of this. patient was notified as well as a family bedside they are agreeable this plan all question concerns answered. Lab Data Labs: Laboratory Results - last 24 hr 06/26/24 06/26/24 06/26/24 11:20 11:21 12:54 WBC 18.7 H RBC 4.05 L Hgb 11.9 L Hct 35.7 L MCV 88.1 MCH 29.4 MCHC 33.3 RDW Std Deviation 43.8 RDW Coeff of Chi 13.5 Plt Count 479 H MPV 10.4 Immature Gran % (Auto) 0.800 Neut % (Auto) 88.2 H Lymph % (Auto) 5.3 L Bledsoe % (Auto) 5.5 Eos % (Auto) 0.0 Baso % (Auto) 0.2 Absolute Neuts (auto) 16.5 H Absolute Lymphs (auto) 0.99 Nucleated RBC % 0 PT 13.5 INR 1.0 APTT 23.8 L Sodium 134 Potassium 3.4 Chloride 94 L Carbon Dioxide 25.9 Anion Gap 14 BUN 55 H Creatinine 1.47 H Estim Creat Clear Calc 28.38 L Est GFR (MDRD) Non-Af 36 L BUN/Creatinine Ratio 37.6 H Glucose 187 H Lactic Acid 3.6 H* Calcium 11.7 H Ionized Calcium 1.40 H Total Bilirubin 0.79 AST 32 ALT 16 Alkaline Phosphatase 92 Troponin T High Sens 87 H* Troponin T Hi Sens 2 Hr Total Protein 7.4 Albumin 3.9 Globulin 3.4 Albumin/Globulin Ratio 1.2 Lipase 29 Urine Color Urine Clarity Urine pH Ur Specific [place] Urine Protein Urine Glucose (UA) Urine Ketones Urine Occult Blood Urine Nitrite Urine Bilirubin Urine Urobilinogen Ur Leukocyte Esterase Urine RBC Urine WBC Ur Squamous Epith Cells Urine Bacteria Hyaline Casts Urine Mucus 06/26/24 06/26/24 13:08 13:26 WBC RBC Hgb Hct MCV MCH MCHC RDW Std Deviation RDW Coeff of Chi Plt Count MPV Immature Gran % (Auto) Neut % (Auto) Lymph % (Auto) Bledsoe % (Auto) Eos % (Auto) Baso % (Auto) Absolute Neuts (auto) Absolute Lymphs (auto) Nucleated RBC % PT INR APTT Sodium Potassium Chloride Carbon Dioxide Anion Gap BUN Creatinine Estim Creat Clear Calc Est GFR (MDRD) Non-Af BUN/Creatinine Ratio Glucose Lactic Acid Calcium Ionized Calcium Total Bilirubin AST ALT Alkaline Phosphatase Troponin T High Sens Troponin T Hi Sens 2 Hr 78 H* Total Protein Albumin Globulin Albumin/Globulin Ratio Lipase Urine Color Yellow Urine Clarity Clear Urine pH 5.0 Ur Specific [place] 1.020 Urine Protein 30 H Urine Glucose (UA) Normal Urine Ketones Negative Urine Occult Blood Negative Urine Nitrite Negative Urine Bilirubin Negative Urine Urobilinogen Normal Ur Leukocyte Esterase Negative Urine RBC 0 SEEN Urine WBC 0 SEEN Ur Squamous Epith Cells 0 SEEN Urine Bacteria 0 SEEN Hyaline Casts 0-5 SEEN Urine Mucus 0 SEEN Radiography Diagnostic Testing: Clinical Impression(s) from Imaging Studies Chest X-Ray 06/26/24 11:55 IMPRESSION: No radiographic evidence of active cardiopulmonary disease. Reading Location: [facility] Abdomen/Pelvis CT 06/26/24 12:13 IMPRESSION: Fecal impaction in the rectosigmoid colon. 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 Fecal impaction in the rectum. Soft tissue density seen in the region of the perineum. Questionable rectal prolapse. Clinical correlation recommended. [facility] T[facility] Chief Complaint: Nausea/Vomiting ED Provider: Jordy Mireles Dx/Rx/DC Orders Clinical Impression: Constipation, Acidosis, lactic, Type 2 GA (myocardial infarction) Prescriptions: No Action albuterol sulfate 90 mcg/actuation HFA aerosol inhaler 2 puff inhalation Q4-6H PRN losartan 100 mg tablet 100 mg PO QDAY metformin 500 mg tablet 1,000 mg PO BID atorvastatin 20 mg tablet 20 mg PO QHS epinephrine 0.3 mg/0.3 mL auto-injector 0.3 mg IM Q5-15M PRN Rx Instructions: do not exceed 3 doses per episode fluticasone propionate [Allergy Relief (fluticasone)] 50 mcg/actuation spray,suspension 2 spray intranasal QDAY Rx Instructions: administer into each nostril aflibercept 2 mg/0.05 mL solution 2 mg intravitreal ONCE docusate sodium 100 mg capsule 100 mg PO BID Fiber Therapy(psyl seed-sugar) Powder 1 tbsp PO BID calcium carb-vit D2-minerals Tablet PO BID metoprolol succinate 50 mg tablet extended release 24 hr 50 mg PO QDAY Qty: 90 3RF ondansetron HCl 4 mg tablet 4 mg PO Q8H PRN PRN (Reason: nausea/vomiting) hydrochlorothiazide 12.5 mg capsule 12.5 mg PO DAILY metoprolol succinate 25 mg tablet extended release 24 hr 25 mg PO DAILY amlodipine 2.5 mg tablet 2.5 mg PO QDAY Qty: 30 11RF Primary Care Provider: Adrian Hamm Referrals: Adrian Hamm MD [Primary Care Provider] - Print Language: Slovenian Disposition Disposition: Acute Care Hospital [facility] What to do if you have Problems For any increased pain, shortness of breath, bleeding, nausea or vomiting, chestpain, or any unexpected problems, contact your Primary Care Provider. Call [facility] ([phone]) or report to the closest Emergency Room. Call 911 if necessary. 06/26/24 1625 <Electronically signed by Jordy Mireles DO> Cosigner Signature (if applicable): CC: Dr. Adrian Hamm MD ~ Signed [facility] Work Phone: 1(362) 515-800705-19-2025 Radiology Diagnostic study note [facility] Imaging Services [address] [place], [place] [id number] Abdomen/Pelvis W IV Cont ONLY MR#: [id number] Acct: [id number] Name: MONISHA FITZPATRICK Rep #: [id number] : 1945 F 78 From: Momo Sorensen MD PCP: Dr. Adrian Hamm MD Status: REG ER Study:Abdomen/Pelvis W IV Cont ONLY Date of E xam: 06/26/24 Exam# [id number] Ordering Dr: Natalia Mireles DO PROCEDURE: ABDOMEN/PELVIS W IV CONT ONLY 06/26/2024 REASON FOR EXAM: N/V Dehydration. TECHNIQUE: Abdomen and pelvis CT with intravenous contrast. Coronal and Sagittal reconstruction series were provided. PATIENT PREPARATION: Per protocol ORAL CONTRAST TYPE: None. CONTRAST: Isovue-300 VOLUME: 100 mL One or more dose reduction techniques were used (e.g., Automated exposure control, adjustment of the mA and/or kV according to patient size, use of iterative reconstruction technique. RADIATION DOSE SUMMARY: CTDlvol: 11.5 mGy DLP: 429.75 mGycm COMPARISON: None FINDINGS: Lung bases: Minimal linear atelectasis at the left lung base. Coronary artery calcification. Liver: Diffuse fatty infiltration. Gallbladder: Unremarkable Spleen: Normal size. Pancreas: Normal size without evidence of mass surrounding inflammation or ductal dilation. Adrenals: Unremarkable Kidneys: Punctate nonobstructive calculus in the upper pole calyx of the left kidney. Bladder: Unremarkable Reproductive Organs: Enlarged fibroid uterus. Bowel: Fecal impaction in the rectosigmoid colon. Appendix: The appendix is not identified. There is no inflammatory process identified in the right lower quadrant to suggest appendicitis. Lymph nodes: Unremarkable. Vasculature: Mild diffuse atherosclerotic calcifications are noted. There is evidence of a 4.5 cm by 3.8 cm partially calcified hypodensity in the right common femoral artery. This may represent an aneurysm. Clinical correlation recommended. Peritoneum / Retroperitoneum: Unremarkable Bones: Mild changes of the spine. CT/Abdomen/Pelvis W IV Cont ONLY IMPRESSION: Fecal impaction in the rectosigmoid colon. 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 Fecal impaction in the rectum. Soft tissue density seen in the region of the perineum. Questionable rectal prolapse. Clinical correlation recommended. Reading Location: [facility] CC: Dr. Adrian Hamm MD; Dr. Jordy Mireles DO ~ Facilities Custodian: Signed [facility]05-19-2025 Radiology Diagnostic study note [facility] Imaging Services [address] [place] [id number] Chest PA and Lateral MR#: [id number] Acct: [id number] Name: MONISHA FITZPATRICK Rep #: [id number] : 1945 F 78 From: Nicholas Muse MD PCP: Dr. Adrian Hamm MD Status: REG ER Study:Chest PA and Lateral Date of Exam: 06/26/24 Exam# [id number] Ordering Dr: Natalia Mireles DO PROCEDURE: CHEST PA AND LATERAL 06/26/2024 REASON FOR EXAM: N/V Nausea. Vomiting. TECHNIQUE: Frontal and lateral views of the chest. COMPARISON: None FINDINGS: Cardiac silhouette upper limits of normal for size. No infiltrates. No pleural effusions. No pneumothorax. Mild thoracic spinal dextroscoliosis. No acute osseous abnormality seen. RAD/Chest PA and Lateral IMPRESSION: No radiographic evidence of active cardiopulmonary disease. Reading [facility] CC: Dr. Adrian Hamm MD; Dr. Jordy Mireles DO ~ Facilities Custodian: Signed [facility]05-19-2025 Telephone encounter Note* Telephone Encounter - Deonte Hamm MD - 06/26/2024 9:38 AM EDT Agree with ER evaluation for signs of dehydration and oliguria. [facility]05-19-2025 Miscellaneous Notes* Telephone Encounter - Deonte Hamm MD - 06/26/2024 9:38 AM EDT Agree with ER evaluation for signs of dehydration and oliguria. * Telephone Encounter - Lucia Ambrose RN - 06/26/2024 9:12 AM EDT Pt called and is notified of providers results and instructions. Pt voices understanding. She states her son picked up the Mag Citrate on Sat and she started it at 4 pm and finished it at 6 pm. Pt states she was up most of the night having BMs. Pt was told provider told her to take Miralax BID and push PO fluids. Pt reports she has been having soft BMs, but hasn't been urinating much. Pt states last night when she had a couple sips of water she threw them right back up, she states she knows shehasn't been drinking enough water. I asked her when the last time she urinated was and she said yesterday morning. I told her if she hasn't urinated I that time she is dehydrated and needs to go to the ER, because she needs fluids. Pt is going to have her son take her to [facility] ER. Lucia Ambrose RN * Telephone Encounter - Geraldine Romano LPN - 06/24/2024 12:03 PM EDT Attempted to call patient x 2 line busy both x. Geraldine Romano LPN * Telephone Encounter - Deonte Hamm MD - 06/24/2024 11:52 AM EDT I will send in rx for Mag citrate solution to take once for constipation. This should cause her to have BM. If not, or if she is having severe symptoms now such as severe abdominal pain, nausea/vomiting, fever/chills I would recommend ER evaluation. If mag citrate works, would have her take Miralax BID and push PO fluids. Call with update on Wednesday. * Telephone Encounter - Lucia Ambrose RN - 06/24/2024 11:02 AM EDT Pt called and is asked about what she takes for constipation. Pt voices understanding. She states she takes Miralax and couldn't remember what else. She is going to call back after she goes to the bathroom. Lucia Ambrose RN * Telephone Encounter - Deonte Hamm MD - 06/24/2024 10:51 AM EDT What has she been taking in the last few days for constipation? Any abdominal pain, blood in stool, black stools, fever or chills with her symptoms? * Telephone Encounter - Lucia Ambrose RN - 06/24/2024 10:01 AM EDT Pt called in and reports she was just in on 06/21/24 and saw provider about her decreased appetite, N/V, constipation, fatigue, and stomach issues. Pt states she had a normal BM on 06/20/24. She reports every day since then she has been having soft small M&M size BMs and only 2-3 small balls.She was asking what the provider would recommend for constipation. She states that yesterday she thr ew up her morning medications, she states she threw up x2 yesterday. She said she didn't even know she was going to throw up, and then her morning meds came up. Pt states she also didn't eat much maybe apiece of toast. She drank 3 red solo cups of water which are 19 oz. Pt denies throwing up today,but states her stomach feel empty. She said she took her medication with water and had a piece of toast. Pt states her stomach often feels upset. Pt asking what the provider feels she can do. Please call and advise. I let her know if provider does not get back to her to go to EC. Lucia Ambrose RN documented in this encounterCleveland [id number] Telephone encounter Note * Telephone Encounter - Lucia Ambrose RN - 06/26/2024 9:12 AM EDT Pt called and is notified of providers results and instructions. Pt voices understanding. She states her son picked up the Mag Citrate on Sat and she started it at 4 pm and finished it at 6 pm. Pt states she was up most of the night having BMs. Pt was told provider told her to take Miralax BID and push PO fluids. Pt reports she has been having soft BMs, but hasn't been urinating much. Pt states last night when she had a couple sips of water she threw them right back up, she states she knows shehasn't been drinking enough water. I asked her when the last time she urinated was and she said yesterday morning. I told her if she hasn't urinated I that time she is dehydrated and needs to go to the ER, because she needs fluids. Pt is going to have her son take her to [facility] ER. Lucia Ambrose RN [facility]05-17-2025 Telephone encounter Note* Telephone Encounter - Geraldine Romano LPN - 06/24/2024 12:03 PM EDT Attempted to call patient x 2 line busy both x. Geraldine Romano LPN [facility]05-17-2025 Telephone encounter Note* Telephone Encounter - Deonte Hamm MD - 06/24/2024 11:52 AM EDT I will send in rx for Mag citrate solution to take once for constipation. This should cause her to have BM. If not, or if she is having severe symptoms now such as severe abdominal pain, nausea/vomiting, fever/chills I would recommend ER evaluation. If mag citrate works, would have her take Miralax BID and push PO fluids. Call with update on Wednesday. [facility]05-17-2025 Telephone encounter Note* Telephone Encounter - Lucia Ambrose RN - 06/24/2024 11:02 AM EDT Pt called and is asked about what she takes for constipation. Pt voices understanding. She states she takes Miralax and couldn't remember what else. She is going to call back after she goes to the bathroom. Lucia Ambrose RN [facility]05-17-2025 Telephone encounter Note* Telephone Encounter - Deonte Hamm MD - 06/24/2024 10:51 AM EDT What has she been taking in the last few days for constipation? Any abdominal pain, blood in stool, black stools, fever or chills with her symptoms? [facility]05-17-2025 Telephone encounter Note* Telephone Encounter - Lucia Ambrose RN - 06/24/2024 10:01 AM EDT Pt called in and reports she was just in on 06/21/24 and saw provider about her decreased appetite, N/V, constipation, fatigue, and stomach issues. Pt states she had a normal BM on e 06/20/24. She reports every day since then she has been having soft small M&M size BMs and only 2-3 small balls.She was asking what the provider would recommend for constipation. She states that yesterday she thr ew up her morning medications, she states she threw up x2 yesterday. She said she didn't even know she was going to throw up, and then her morning meds came up. Pt states she also didn't eat much maybe apiece of toast. She drank 3 red solo cups of water which are 19 oz. Pt denies throwing up today,but states her stomach feel empty. She said she took her medication with water and had a piece of toast. Pt states her stomach often feels upset. Pt asking what the provider feels she can do. Please call and advise. I let her know if provider does not get back to her to go to EC. Lucia Ambrose, RN [facility]05-14-2025 Instructions* Patient Instructions* Deonte Hamm MD - 06/21/2024 2:01 PM EDT Continue eating three balanced meals a day and include your daily 10-oz Glucerna shake (or at leasthalf a bottle) as you have been. Use your Zofran prescription as needed when you feel nauseous; it has been sent to [facility]. Take itonly when symptoms arise. For constipation, drink plenty of fluids and maintain a good fiber intake. You may take Miralax once or twice a day as needed along with your usual Metamucil. Have your blood work done today (to check blood counts, kidney function, and thyroid levels) and provide a urine sample at the lab if possible; if you re unable to pee before leaving, please arrange to have these tests done soon. Continue with a bland diet and gradually resume your normal diet as you feel better. Monitor your overall weight and appetite; if you notice continued weight loss or a return of your symptoms, please call the office. [facility] NoteHNO ID: [id number] Author: DEONTE HAMM MD Service: ? Author Type: Physician Type: Progress Notes Filed: 06/21/2024 14:26 Note Text: Chief Complaint Patient presents with: Nausea: Had episodes of vomiting last week Fatigue Recording using [employer] software for draft documentation of the visit was discussed with the patient/authorized customer counter representative; all questions welcomed and answered. Patient/authorized customer counter representative agreed to proceed HPI Monisha Fitzpatrick is a 78 year old female who presents here today for Above Complaints. Accompanied today by son Christopher. Nausea and Vomiting: - Acute onset of nausea and vomiting last week, lasting 2 days. - First episode occurred while driving to a hospital appointment; second episode the following day. - No further episodes of vomiting since. - Denies fever, chills, abdominal pain, or diarrhea. - Vomitus appeared as previously consumed food; denies hematemesis or coffee ground emesis. - No known dietary triggers; denies consuming undercooked food. - No similar symptoms in household contacts. - Prescribed Zofran for nausea, which has been effective. Decreased Appetite: - Persistent decreased appetite since episodes of vomiting. - Reports food aversion; consuming Glucerna shakes daily. - Recent weight loss of approximately 1 lb from 06/10 to today. - No significant changes in bowel habits; denies severe constipation or hard stools. - Taking Metamucil and Miralax for bowel regularity. Diabetes: - Fasting blood glucose levels consistently between 100-120 mg/dL over the past 2 weeks. Hypertension: - Recent home blood pressure readings in the 150s/90s last week. - Current blood pressure readin/74 mmHg. Hypertrophic Cardiomyopathy: - Scheduled for a cardiac MRI on 09/13. - Reports fatigue over the past 2-3 months. Past medical history, appointments, medications, allergies reviewed. Previous Medical History PAST MEDICAL HISTORY Diagnosis Date HUSSAIN (acute kidney injury) Aortic ejection murmur 04/06/2014 Arthritis of both knees 01/14/2017 Diabetes mellitus with macular edema, both eyes (HCC) 02/23/2013 Dr. Oliva, Dr. CorreaCisf-Pivzxv-safkm Esophageal reflux External hemorrhoids without mention of complication Hearing aid worn Hyperlipidemia LDL goal <100 11/22/2015 Internal hemorrhoids without mention of complication Laryngospasm epi pen 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) 02/23/2013 PMH - PAST MEDICAL HISTORY OF change in bowel habits PMH - PAST MEDICAL HISTORY OF breathing shut down of and on Renal cyst 12/25/2015 right renal cyst Retinal edema 01/23/2014 Left eye - See scanned documents Retinal hemorrhage 07/19/2010 Unspecified constipation Unspecified essential hypertension Vasomotor rhinitis 04/06/2014 Venous (peripheral) insufficiency 08/13/2011 White coat hypertension 05/01/2013 Previous Surgical History PAST SURGICAL HISTORY Procedure Laterality Date CATARACT EXTRACTION HX Bilateral 10/2018, 09/2020 COLONOSCOPY FLX DX W/COLLJ SPEC WHEN PFRMD 08/21/2005 Repeat in FNA WITH IMAGING Right 12/06/2015 U/S FNA right groin PAST SURGICAL HISTORY OF CHILD TONSILS PAST SURGICAL HISTORY OF Left laser surgery to left eye SCREENING COLONSCOPY NOT HIGH RISK 02/2016 normal Family History FAMILY HISTORY Problem Relation Age of Onset other (gallbladder problems) Mother ulcers/stomach problems Emphysema Father ulcers Coronary Artery Disease Father Diabetes Paternal Grandmother Diabetes Paternal Aunt Diabetes Paternal Uncle Diabetes Maternal Uncle Patient Allergies ALLERGIES Allergen Reactions Lisinopril Swelling angioedema Doxycycline GI Upset Nausea w/o vomiting, bad taste Penicillin G Prednisone JITTERY Sulfa (Sulfonamide * Current Medications Current Outpatient Medications on File Prior to Visit Medication Sig amLODIPine (NORVASC) 2.5 mg tablet Take 1 tablet by mouth once daily. ondansetron (ZOFRAN) 4 mg tablet Take 1 tablet by mouth every 8 hours as needed for nausea/vomiting. metoprolol succinate ER (TOPROL XL) 50 mg 24 hr tablet Take 1 tablet by mouth once daily. blood sugar diagnostic (ACCU-CHEK FAISAL) test strip Test blood sugar(s) one time daily. Dx: E11.9. Insulin: No albuterol HFA (VENTOLIN HFA) 90 mcg/actuation inhaler Inhale 2 Puffs as instructed every 4 hours as needed for wheezing/shortness of breath. losartan (COZAAR) 100 mg tablet Take 1 tablet by mouth once daily. metFORMIN (GLUCOPHAGE) 500 mg tablet Take 2 tablets by mouth two times a day with meals. . atorvastatin (LIPITOR) 20 mg tablet Take 1 tablet by mouth daily at bedtime. For cholesterol. EPINEPHrine (EPIPEN) 0.3 mg/0.3 mL auto-injector 0.3 ml subcutaneously as needed for hypersensitivity reaction fluticasone (FLONASE) 50 mcg/actuation nasal spray Use 2 Sprays in each nostril once daily. ONE TO TWO SPRAYS TO EACH NOSTRIL (more content not included)... [facility]05-14-2025 History of Present illness Narrative* Deonte Hamm MD - 06/21/2024 1:42 PM EDT Chief Complaint Patient presents with: Nausea: Had episodes of vomiting last week Fatigue Recording using [employer] software for draft documentation of the visit was discussed with the patient/authorized customer counter representative; all questions welcomed and answered. Patient/authorized customer counter representative agreed to proceed HPI Monisha Fitzpatrick is a 78 year old female who presents here today for Above Complaints. Accompanied today by son Christopher. Nausea and Vomiting: - Acute onset of nausea and vomiting last week, lasting 2 days. - First episode occurred while driving to a hospital appointment; second episode the following day. - No further episodes of vomiting since. - Denies fever, chills, abdominal pain, or diarrhea. - Vomitus appeared as previously consumed food; denies hematemesis or coffee ground emesis. - No known dietary triggers; denies consuming undercooked food. - No similar symptoms in household contacts. - Prescribed Zofran for nausea, which has been effective. Decreased Appetite: - Persistent decreased appetite since episodes of vomiting. - Reports food aversion; consuming Glucerna shakes daily. - Recent weight loss of approximately 1 lb from 06/10 to today. - No significant changes in bowel habits; denies severe constipation or hard stools. - Taking Metamucil and Miralax for bowel regularity. Diabetes: - Fasting blood glucose levels consistently between 100-120 mg/dL over the past 2 weeks. Hypertension: - Recent home blood pressure readings in the 150s/90s last week. - Current blood pressure readin/74 mmHg. Hypertrophic Cardiomyopathy: - Scheduled for a cardiac MRI on 09/13. - Reports fatigue over the past 2-3 months. Past medical history, appointments, medications, allergies reviewed. Previous Medical History PAST MEDICAL HISTORY Diagnosis Date HUSSAIN (acute kidney injury) Aortic ejection murmur 04/06/2014 Arthritis of both knees 01/14/2017 Diabetes mellitus with macular edema, both eyes ([facility]) 02/23/2013 Dr. Oliva, Dr. CorreaPnyk-Ayvcjk-cedyl Esophageal reflux External hemorrhoids without mention of complication Hearing aid worn Hyperlipidemia LDL goal <100 11/22/2015 Internal hemorrhoids without mention of complication Laryngospasm epi pen Nonproliferative diabetic retinopathy of both eyes ([facility]) 02/23/2013 PMH - PAST MEDICAL HISTORY OF change in bowel habits PMH - PAST MEDICAL HISTORY OF breathing shut down of and on Renal cyst 12/25/2015 right renal cyst Retinal edema 01/23/2014 Left eye - See scanned documents Retinal hemorrhage 07/19/2010 Unspecified constipation Unspecified essential hypertension Vasomotor rhinitis 04/06/2014 Venous (peripheral) insufficiency 08/13/2011 White coat hypertension 05/01/2013 Previous Surgical History PAST SURGICAL HISTORY Procedure Laterality Date CATARACT EXTRACTION HX Bilateral 10/2018, 09/2020 COLONOSCOPY FLX DX W/COLLJ SPEC WHEN PFRMD 08/21/2005 Repeat in FNA WITH IMAGING Right 12/06/2015 U/S FNA right groin PAST SURGICAL HISTORY OF CHILD TONSILS PAST SURGICAL HISTORY OF Left laser surgery to left eye SCREENING COLONSCOPY NOT HIGH RISK 02/2016 normal Family History FAMILY HISTORY Problem Relation Age of Onset other (gallbladder problems) Mother ulcers/stomach problems Emphysema Father ulcers Coronary Artery Disease Father Diabetes Paternal Grandmother Diabetes Paternal Aunt Diabetes Paternal Uncle Diabetes Maternal Uncle Patient Allergies ALLERGIES Allergen Reactions Lisinopril Swelling angioedema Doxycycline GI Upset Nausea w/o vomiting, bad taste Penicillin G Prednisone JITTERY Sulfa (Sulfonamide * Current Medications Current Outpatient Medications on File Prior to Visit Medication Sig amLODIPine (NORVASC) 2.5 mg tablet Take 1 tablet by mouth once daily. ondansetron (ZOFRAN) 4 mg tablet Take 1 tablet by mouth every 8 hours as needed for nausea/vomiting. metoprolol succinate ER (TOPROL XL) 50 mg 24 hr tablet Take 1 tablet by mouth once daily. blood sugar diagnostic (ACCU-CHEK FAISAL) test strip Test blood sugar(s) one time daily. Dx: E11.9. Insulin: No albuterol HFA (VENTOLIN HFA) 90 mcg/actuation inhaler Inhale 2 Puffs as instructed every 4 hours asneeded for wheezing/shortness of breath. losartan (COZAAR) 100 mg tablet Take 1 tablet by mouth once daily. metFORMIN (GLUCOPHAGE) 500 mg tablet Take 2 tablets by mouth two times a day with meals. . atorvastatin (LIPITOR) 20 mg tablet Take 1 tablet by mouth daily at bedtime. For cholesterol. EPINEPHrine (EPIPEN) 0.3 mg/0.3 mL auto-injector 0.3 ml subcutaneously as needed for hypersensitivity reaction fluticasone (FLONASE) 50 mcg/actuation nasal spray Use 2 Sprays in each nostril once daily. ONE TO TWO SPRAYS TO EACH NOSTRIL ONCE DAILY Lancing Device with Lancets (ACCU-CHEK FASTCLIX LANCING DEV) 1 Each as directed. Use as directed. DX: E11.9, Insulin: No aflibercept opthalmic intravitreal (EYLEA) 2 mg/0.05 mL soln Use 0.05 mL in the left eye one time only for 1 dose. Lancets (ACCU-CHEK MULTICLIX LANCET) lancets 1 Each as directed. daily. Use as instructed. Dx 250.00 No insulin ibuprofen (MOTRIN) 400 mg tablet Take 1 tablet by mouth twice daily as needed for Pain. docusate sodium (COLACE) 100 mg capsule Take 100 mg by mouth twice daily. psyllium seed/sucrose(METAMUCIL SMOOTH TEXTURE 28 % PACKET) twicw daily CALCIUM 600 + D 600 MG-125 UNIT TAB Take one(1) tablet two(2) times daily. No current facility-administered medications on file prior to visit. Social History Social History Tobacco Use Smoking status: Never Smokeless tobacco: Never Substance Use Topics Alcohol use: No Drug use: No Review of Symptoms REVIEW OF SYSTEMS See HPI EXAM: BP 128/74 Pulse 84 Temp 36.4 C (97.6 F) Resp 16 Wt 62.6 kg (138 lb) SpO2 98% BMI 22.96 kg/m General Appearance: Well appearing, alert, in no acute distress, well-hydrated, well nourished.. Skin: Skin color, texture, turgor normal, no suspicious rashes or lesions. Lungs: Lungs clear to auscultation. No wheezing, rhonchi, rales.. Heart: RRR without murmur, gallop, or rubs. No ectopy. Abdomen: Normal abdominal exam, Abdomen soft, non-tender. Bowel sounds normal. No masses, organomegaly. Extremities: No deformities, edema, skin discoloration, clubbing or cyanosis. Good capillary refill. . Health Maintenance List Depression Screening Never done Anxiety Screening Never done BP Controlled (<130/80) Never done Advance Directive Discussion Never done DTaP,Tdap,Td Vaccine(3 - Td or Tdap) due on 06/15/2024 LDL Cholesterol due on 11/30/2024 HbA1C due on 11/30/2024 Urine Albumin:Creatinine Ratio due on 12/02/2024 Dilated Retinal Exam due on 04/11/2025 Diabetic Foot Exam due on 05/31/2025 Annual PCP Team Chronic Disease Visit due on 05/31/2025 Bone Density Screening Completed Influenza Vaccine Completed RSV Vaccine Completed Hepatitis C Screening Completed Shingrix Vaccine Completed Covid-19 Vaccine Completed Pneumococcal Vaccine: 50+ Completed Mammogram Screening Discontinued Colorectal Cancer Screening Discontinued Data reviewed Latest Ref Rng 04/18/2024 04/20/2024 04/26/2024 05/13/2024 05/31/2024 WBC 3.70 - 11.00 k/uL 10.31 RBC 3.90 - 5.20 m/uL 3.92 Hemoglobin 11.5 - 15.5 g/dL 11.7 Hematocrit 36.0 - 46.0 % 35.4 (L) MCV 80.0 - 100.0 fL 90.3 MCH 26.0 - 34.0 pg 29.8 MCHC 30.5 - 36.0 g/dL 33.1 RDW-CV 11.5 - 15.0 % 13.1 Platelet Count 150 - 400 k/uL 402 (H) MPV 9.0 - 12.7 fL 10.2 Neut% % 67.6 Abs Neut (ANC) 1.45 - 7.50 k/uL 6.98 Lymph% % 22.2 Abs Lymph 1.00 - 4.00 k/uL 2.29 Bledsoe% % 8.1 Abs Bledsoe <0.87 k/uL 0.83 Eosin% % 0.8 Abs Eosin <0.46 k/uL 0.08 Baso% % 0.9 Abs Baso <0.11 k/uL 0.09 Immature Gran % % 0.4 IMMATURE GRANS (ABS) <0.10 k/uL 0.04 NRBC /100 WBC 0.0 Absolute nRBC <0.01 k/uL <0.01 DTYPE Auto Protein, Total 6.3 - 8.0 g/dL 7.4 7.2 6.9 7.1 Albumin 3.9 - 4.9 g/dL 4.5 4.4 3.9 Calcium 8.5 - 10.2 mg/dL 11.3 (H) 11.1 (H) 9.4 Bilirubin, Total 0.2 - 1.3 mg/dL 0.4 0.2 0.3 Alkaline Phosphatase 34 - 123 U/L 77 75 66 AST 13 - 35 U/L 14 16 21 ALT 7 - 38 U/L 9 11 15 Glucose 74 - 99 mg/dL 104 (H) 108 (H) 126 (H) BUN 7 - 21 mg/dL 36 (H) 36 (H) 26 (H) Creatinine 0.58 - 0.96 mg/dL 0.89 1.02 (H) 1.06 (H) Sodium 136 - 144 mmol/L 139 142 143 Potassium 3.7 - 5.1 mmol/L 3.8 3.6 (L) 4.2 Chloride 98 - 107 mmol/L 97 (L) 99 101 CO2 22 - 30 mmol/L 29 29 25 Anion Gap 8 - 15 mmol/L 13 14 17 (H) eGFR >=60 mL/min/1.73m 66 56 (L) 54 (L) Albumin 3.43 - 5.41 g/dL 4.04 Alpha 1 Globulin 0.18 - 0.43 g/dL 0.26 Alpha 2 Globulin 0.42 - 0.98 g/dL 0.63 Beta Globulin 0.61 - 1.17 g/dL 0.94 Gamma Globulin 0.53 - 1.51 g/dL 1.04 Interpretation (Prot Electro) No definitive M protein is identified on protein electrophoresis. No definitive M protein is identified on protein electrophoresis. M-Protein Location -- M-Protein Concentration <=0.00 g/dL 0.00 SPE Staff Review Reviewed by Estefani Dodd M.D. Normalized Calcium 1.08 - 1.30 mmol/L 1.41 (H) Ionized Calcium 1.08 - 1.30 mmol/L 1.43 (H) Hemoglobin A1C 4.3 - 5.6 % 6.3 (H) Estimated Average Glucose mg/dL 134 Vitamin D 25 Hydroxy 31.0 - 80.0 ng/mL 51.7 55.1 Vitamin B12 232 - 1,245 pg/mL 267 TSH 0.270 - 4.200 mIU/L 1.720 PTH, Intact 15 - 65 pg/mL 12 (L) PTH Related Peptide 0.0 - 3.4 pmol/L 3.0 Vit D1,25 Dihydroxy 19.9 - 79.3 pg/mL 71.4 Legend: (L) Low (H) High XR CHEST 2V FRONT/LAT 04/18/2024 IMPRESSION: No acute radiographic abnormality. XR ABDOMEN 2V ROUTINE SUPINE W UPRIGHT/DECUB/CTL 04/27/2024 IMPRESSION: Nonobstructive bowel gas pattern. 1. Decreased appetite (R63.0) 2. Nausea and vomiting, unspecified vomiting type (R11.2) 3. Viral gastroenteritis (A08.4) - Likely viral gastroenteritis causing transient nausea and vomiting, leading to decreased appetite. - Symptoms have improved; no further episodes of vomiting, but appetite remains reduced. - Ordered CBC, BMP, and TSH to rule out infection, assess kidney function, and evaluate thyroid function. - Ordered urinalysis to check for any signs of infection. - Advised to maintain a bland diet, drink plenty of fluids, and continue Glucerna shakes. - Prescribed Zofran for nausea, to be taken only as needed. - Monitor weight; if further weight loss occurs or symptoms worsen, patient to contact clinic. 4. Fatigue, unspecified type (R53.83) - Fatigue may be related to recent viral illness; will monitor. 5. Essential (primary) hypertension (I10) - Blood pressure readings have improved; today's reading was 128/74 mmHg. - Continue current antihypertensive regimen. 6. Type 2 diabetes mellitus without complication, without long-term current use of insulin (HCC) (E11.9) - Blood glucose levels well-controlled, with fasting sugars between 100-120 mg/dL over the past twoweeks. - Continue current diabetes management. Deonte Hamm MD [facility] Telephone encounter Note * Telephone Encounter - Yumiko Vaz MA - 06/16/2024 2:27 PM EDT Pt notified and voiced understanding. She is scheduled for next week. Yumiko Vaz MA [facility] Miscellaneous Notes* Telephone Encounter - Yumiko Vaz MA - 06/16/2024 2:27 PM EDT Pt notified and voiced understanding. She is scheduled for next week. Yumiko Vaz MA * Telephone Encounter - Deonte Hamm MD - 06/16/2024 2:14 PM EDT Recommend OV for evaluation early next week. If she has worsening symptoms of fever/chills, intractable nausea with vomiting, severe abdominal pain, dehydration, or confusion would recommend ER instead. Will call in rx for zofran to take PRN for nausea. Recommend bland diet, pushing PO fluids over theweekend. * Telephone Encounter - Yumiko Vaz MA - 06/16/2024 1:49 PM EDT Called pt, she denies fevers or diarrhea. Vomited once Wed, vomited once . Fatigue has beenan issue since April when she was seen. She has lost a few pounds over the last few days, weight isaround 136-138, down from 140 lbs. She states that she is following with cardio at [facility] who reduced her Metoprolol from 50 mg daily to 25 mg daily in April. Was restarted on Norvasc 2.5 mg once daily at last visit with Cardio 06/06/24. Cardio had pt wear a heart monitor for 24 hours, took it in on Wed. Has not heard any report back on that. Yumiko Vaz MA * Telephone Encounter - Deonte Hamm MD - 06/16/2024 1:25 PM EDT A higher dose of metoprolol may make her feel fatigued, but probably not nauseous. Has she had any additional weight loss? Any fever/chills, vomiting, diarrhea? * Telephone Encounter - Hayde Romero LPN - 06/16/2024 12:40 PM EDT Patient calling said she is not feeling any better, nauseated, does not feel like eating. She has not tried the boost or ensure yet. Patient asking if the change in her medications would make her feel like this? Offered an appt with PCP she declined, said was to let the Dr know how I am doing. Please advise [facility] Telephone encounter Note * Telephone Encounter - Deonte Hamm MD - 06/16/2024 2:14 PM EDT Recommend OV for evaluation early next week. If she has worsening symptoms of fever/chills, intractable nausea with vomiting, severe abdominal pain, dehydration, or confusion would recommend ER instead. Will call in rx for zofran to take PRN for nausea. Recommend bland diet, pushing PO fluids over theweekend. [facility] Telephone encounter Note* Telephone Encounter - Yumiko Vaz MA - 06/16/2024 1:49 PM EDT Called pt, she denies fevers or diarrhea. Vomited once Wed, vomited once . Fatigue has beenan issue since April when she was seen. She has lost a few pounds over the last few days, weight isaround 136-138, down from 140 lbs. She states that she is following with cardio at [facility] who reduced her Metoprolol from 50 mg daily to 25 mg daily in April. Was restarted on Norvasc 2.5 mg once daily at last visit with Cardio 06/06/24. Cardio had pt wear a heart monitor for 24 hours, took it in on Wed. Has not heard any report back on that. Yumiko Vaz MA [facility] Telephone encounter Note* Telephone Encounter - Deonte Hamm MD - 06/16/2024 1:25 PM EDT A higher dose of metoprolol may make her feel fatigued, but probably not nauseous. Has she had any additional weight loss? Any fever/chills, vomiting, diarrhea? [facility] Tele[facility] encounter Note* Telephone Encounter - Hayde Romero LPN - 06/16/2024 12:40 PM EDT Patient calling said she is not feeling any better, nauseated, does not feel like eating. She has not tried the boost or ensure yet. Patient asking if the change in her medications would make her feel like this? Offered an appt with PCP she declined, said was to let the Dr know how I am doing. Please advise [facility] Instructions* Patient Instructions* Deonte Hamm MD - 05/31/2024 10:21 AM EDT Check your weight 2-3 times per week and supplement with a protein shake such as boost or ensure 2-3 times per day. If you are continuing to lose weight, schedule an earlier office visit. documented in [facility] encounterSt[facility]04[facility]25 NoteHNO ID: [id number] Author: DEONTE HAMM MD Service: ? Author Type: Physician Type: Progress Notes Filed: 05/31/2024 11:58 Note Text: Chief Complaint Patient presents with: F/U 6 months HPI Monisha Fitzpatrick is a 78 year old female who presents here today for 6 months. We discontinued patient's HCTZ after finding of hypercalcemia last month and repeat calcium level was back to normal. States that cardiology discontinued her amlodipine at her OV on 05/25 because they increased her metoprolol to 50 mg daily. BP elevated today in initial check. Not monitoring at home since change in rx. Denies headaches, chest pain, SOB, palpitations, LE edema. Referred to cardiology for fatigue with finding of possible hypertrophic cardiomyopathy on echo. Scheduled for cardiac MRI to look into this further. No other specific findings on her labs to cause fatigue. DIABETES MELLITUS: Ms. Fitzpatrick was last seen 6 months ago. Since our last visit she denies excessive thirst or increased frequency of urination, numbness, tingling or pain in extremities, new or unusual visual symptoms, and low sugar/hypoglycemic reactions. Follows a diabetic diet most of the time. She is compliant with medication(s) and is tolerating med(s) without any side effects. She reports checking her glucose on a once a day schedule with sugars in the <120 range. Patient's last HgA1C was Hemoglobin A1C (%) Date Value 12/01/2023 6.1 05/26/2023 6.2 10/11/2020 6.7 04/16/2020 6.6 ) Last Ophthalmology exam was within the past 3 months Last Podiatry exam was more than 12 months ago Noted she has had more than 10 lb weight loss in the last 6 months. Not trying to lose weight, but has not had as much of an appetite. Recent labs and CXR unremarkable. Past medical history, appointments, medications, allergies reviewed. Previous Medical History PAST MEDICAL HISTORY Diagnosis Date HUSSAIN (acute kidney injury) Aortic ejection murmur 04/06/2014 Arthritis of both knees 01/14/2017 Diabetes mellitus with macular edema, both eyes (HCC) 02/23/2013 Dr. Oliva, Dr. CorreaSgxd-Ioygkn-lfgqu Esophageal reflux External hemorrhoids without mention of complication Hearing aid worn Hyperlipidemia LDL goal <100 11/22/2015 Internal hemorrhoids without mention of complication Laryngospasm epi pen 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) 02/23/2013 PMH - PAST MEDICAL HISTORY OF change in bowel habits PMH - PAST MEDICAL HISTORY OF breathing shut down of and on Renal cyst 12/25/2015 right renal cyst Retinal edema 01/23/2014 Left eye - See scanned documents Retinal hemorrhage 07/19/2010 Unspecified constipation Unspecified essential hypertension Vasomotor rhinitis 04/06/2014 Venous (peripheral) insufficiency 08/13/2011 White coat hypertension 05/01/2013 Previous Surgical History PAST SURGICAL HISTORY Procedure Laterality Date CATARACT EXTRACTION HX Bilateral 10/2018, 09/2020 COLONOSCOPY FLX DX W/COLLJ SPEC WHEN PFRMD 08/21/2005 Repeat in FNA WITH IMAGING Right 12/06/2015 U/S FNA right groin PAST SURGICAL HISTORY OF CHILD TONSILS PAST SURGICAL HISTORY OF Left laser surgery to left eye SCREENING COLONSCOPY NOT HIGH RISK 02/2016 normal Family History FAMILY HISTORY Problem Relation Age of Onset other (gallbladder problems) Mother ulcers/stomach problems Emphysema Father ulcers Coronary Artery Disease Father Diabetes Paternal Grandmother Diabetes Paternal Aunt Diabetes Paternal Uncle Diabetes Maternal Uncle Patient Allergies ALLERGIES Allergen Reactions Lisinopril Swelling angioedema Doxycycline GI Upset Nausea w/o vomiting, bad taste Penicillin G Prednisone JITTERY Sulfa (Sulfonamide * Current Medications Current Outpatient Medications on File Prior to Visit Medication Sig metoprolol succinate ER (TOPROL XL) 50 mg 24 hr tablet Take 1 tablet by mouth once daily. aflibercept opthalmic intravitreal (EYLEA) 2 mg/0.05 mL soln Use 0.05 mL in the left eye one time only for 1 dose. docusate sodium (COLACE) 100 mg capsule Take 100 mg by mouth twice daily. CALCIUM 600 + D 600 MG-125 UNIT TAB Take one(1) tablet two(2) times daily. blood sugar diagnostic (ACCU-CHEK FAISAL) test strip Test blood sugar(s) one time daily. Dx: E11.9. Insulin: No albuterol HFA (VENTOLIN HFA) 90 mcg/actuation inhaler Inhale 2 Puffs as instructed every 4 hours as needed for wheezing/shortness of breath. losartan (COZAAR) 100 mg tablet Take 1 tablet by mouth once daily. amLODIPine (NORVASC) 10 mg tablet Take 1 tablet by mouth once daily. (Patient not taking: Reported on 05/31/2024) metFORMIN (GLUCOPHAGE) 500 mg tablet Take 2 tablets by mouth two times a day with meals. . atorvastatin (LIPITOR) 20 mg tablet Take 1 tablet by mouth daily at bedtime. For cholesterol. EPINEPHrine (EPIPEN) 0.3 mg/0.3 mL auto-injector 0.3 ml subcutaneously as needed for hypersensitivity (more content not included)...[facility]04[facility] History of Present illness Narrative* Deonte Hamm MD - 05/31/2024 9:53 AM EDT Chief Complaint Patient presents with: F/U 6 months HPI Monisha Fitzpatrick is a 78 year old female who presents here today for 6 months. We discontinued patient's HCTZ after finding of hypercalcemia last month and repeat calcium level was back to normal. States that cardiology discontinued her amlodipine at her OV on 05/25 because theyincreased her metoprolol to 50 mg daily. BP elevated today in initial check. Not monitoring at homesince change in rx. Denies headaches, chest pain, SOB, palpitations, LE edema. Referred to cardiology for fatigue with finding of possible hypertrophic cardiomyopathy on echo. Scheduled for cardiac MRI to look into this further. No other specific findings on her labs to cause fatigue. DIABETES MELLITUS: Ms. Fitzpatrick was last seen 6 months ago. Since our last visit she denies excessivethirst or increased frequency of urination, numbness, tingling or pain in extremities, new or unusual visual symptoms, and low sugar/hypoglycemic reactions. Follows a diabetic diet most of the time. She is compliant with medication(s) and is tolerating med(s) without any side effects. She reports checking her glucose on a once a day schedule with sugars in the <120 range. Patient's last HgA1C was Hemoglobin A1C (%) Date Value 12/01/2023 6.1 05/26/2023 6.2 10/11/2020 6.7 04/16/2020 6.6 ) Last Ophthalmology exam was within the past 3 months Last Podiatry exam was more than 12 months ago Noted she has had more than 10 lb weight loss in the last 6 months. Not trying to lose weight, but has not had as much of an appetite. Recent labs and CXR unremarkable. Past medical history, appointments, medications, allergies reviewed. Previous Medical History PAST MEDICAL HISTORY Diagnosis Date HUSSAIN (acute kidney injury) Aortic ejection murmur 04/06/2014 Arthritis of both knees 01/14/2017 Diabetes mellitus with macular edema, both eyes (HCC) 02/23/2013 Dr. Oliva, Dr. CorreaUwnc-Alhzqq-llwrr Esophageal reflux External hemorrhoids without mention of complication Hearing aid worn Hyperlipidemia LDL goal <100 11/22/2015 Internal hemorrhoids without mention of complication Laryngospasm epi pen 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) 02/23/2013 PMH - PAST MEDICAL HISTORY OF change in bowel habits PMH - PAST MEDICAL HISTORY OF breathing shut down of and on Renal cyst 12/25/2015 right renal cyst Retinal edema 01/23/2014 Left eye - See scanned documents Retinal hemorrhage 07/19/2010 Unspecified constipation Unspecified essential hypertension Vasomotor rhinitis 04/06/2014 Venous (peripheral) insufficiency 08/13/2011 White coat hypertension 05/01/2013 Previous Surgical History PAST SURGICAL HISTORY Procedure Laterality Date CATARACT EXTRACTION HX Bilateral 10/2018, 09/2020 COLONOSCOPY FLX DX W/COLLJ SPEC WHEN PFRMD 08/21/2005 Repeat in FNA WITH IMAGING Right 12/06/2015 U/S FNA right groin PAST SURGICAL HISTORY OF CHILD TONSILS PAST SURGICAL HISTORY OF Left laser surgery to left eye SCREENING COLONSCOPY NOT HIGH RISK 02/2016 normal Family History FAMILY HISTORY Problem Relation Age of Onset other (gallbladder problems) Mother ulcers/stomach problems Emphysema Father ulcers Coronary Artery Disease Father Diabetes Paternal Grandmother Diabetes Paternal Aunt Diabetes Paternal Uncle Diabetes Maternal Uncle Patient Allergies ALLERGIES Allergen Reactions Lisinopril Swelling angioedema Doxycycline GI Upset Nausea w/o vomiting, bad taste Penicillin G Prednisone JITTERY Sulfa (Sulfonamide * Current Medications Current Outpatient Medications on File Prior to Visit Medication Sig metoprolol succinate ER (TOPROL XL) 50 mg 24 hr tablet Take 1 tablet by mouth once daily. aflibercept opthalmic intravitreal (EYLEA) 2 mg/0.05 mL soln Use 0.05 mL in the left eye one time only for 1 dose. docusate sodium (COLACE) 100 mg capsule Take 100 mg by mouth twice daily. CALCIUM 600 + D 600 MG-125 UNIT TAB Take one(1) tablet two(2) times daily. blood sugar diagnostic (ACCU-CHEK FAISAL) test strip Test blood sugar(s) one time daily. Dx: E11.9. Insulin: No albuterol HFA (VENTOLIN HFA) 90 mcg/actuation inhaler Inhale 2 Puffs as instructed every 4 hours asneeded for wheezing/shortness of breath. losartan (COZAAR) 100 mg tablet Take 1 tablet by mouth once daily. amLODIPine (NORVASC) 10 mg tablet Take 1 tablet by mouth once daily. (Patient not taking: Reported on 05/31/2024) metFORMIN (GLUCOPHAGE) 500 mg tablet Take 2 tablets by mouth two times a day with meals. . atorvastatin (LIPITOR) 20 mg tablet Take 1 tablet by mouth daily at bedtime. For cholesterol. EPINEPHrine (EPIPEN) 0.3 mg/0.3 mL auto-injector 0.3 ml subcutaneously as needed for hypersensitivity reaction fluticasone (FLONASE) 50 mcg/actuation nasal spray Use 2 Sprays in each nostril once daily. ONE TO TWO SPRAYS TO EACH NOSTRIL ONCE DAILY Lancing Device with Lancets (ACCU-CHEK FASTCLIX LANCING DEV) 1 Each as directed. Use as directed. DX: E11.9, Insulin: No Lancets (ACCU-CHEK MULTICLIX LANCET) lancets 1 Each as directed. daily. Use as instructed. Dx 250.00 No insulin ibuprofen (MOTRIN) 400 mg tablet Take 1 tablet by mouth twice daily as needed for Pain. psyllium seed/sucrose(METAMUCIL SMOOTH TEXTURE 28 % PACKET) twicw daily No current facility-administered medications on file prior to visit. Social History Social History Tobacco Use Smoking status: Never Smokeless tobacco: Never Substance Use Topics Alcohol use: No Drug use: No Review of Symptoms REVIEW OF SYSTEMS GENERAL: No weight loss, malaise or fevers RESPIRATORY: Negative for cough, hemoptysis, wheezing, COPD, dyspnea or shortness of breath CARDIOVASCULAR: Negative for chest pain, leg swelling, hypertension, CHF or palpitations GI: No nausea, vomiting, or diarrhea SKIN: Negative for lesions, rash, and itching EXAM: BP 152/88 Pulse 90 Resp 16 Wt 63.4 kg (139 lb 12.8 oz) SpO2 97% BMI 23.26 kg/m General Appearance: Well appearing, alert, in no acute distress, well-hydrated, well nourished.. Skin: Skin color, texture, turgor normal, no suspicious rashes or lesions. Lungs: Lungs clear to auscultation. No wheezing, rhonchi, rales.. Heart: RRR. 2/6 MADHAV best heard at [facility]. Abdomen: Normal abdominal exam, Abdomen soft, non-tender. Bowel sounds normal. No masses, organomegaly. Extremities: No deformities, edema, skin discoloration, clubbing or cyanosis. Good capillary refill. . Feet: Shoes and socks removed, trace DP distal pulses, sensitive to 10 gm monofilament, and 0.1 cm erythematous spot on the left 2nd toe from rubbing. Hammer toe on left 2nd toe Health Maintenance List Depression Screening Never done Anxiety Screening Never done Advance Directive Discussion Never done HbA1C due on 05/31/2024 Covid-19 Vaccine() due on 05/31/2024 Diabetic Foot Exam due on 05/25/2024 DTaP,Tdap,Td Vaccine(3 - Td or Tdap) due on 06/15/2024 LDL Cholesterol due on 11/30/2024 Urine Albumin:Creatinine Ratio due on 12/02/2024 Dilated Retinal Exam due on 04/11/2025 Annual PCP Team Chronic Disease Visit due on 04/27/2025 BP Controlled (<130/80) due on 04/27/2025 Bone Density Screening Completed Influenza Vaccine Completed RSV Vaccine Completed Hepatitis C Screening Completed Shingrix Vaccine Completed Pneumococcal Vaccine: 50+ Completed Mammogram Screening Discontinued Colorectal Cancer Screening Discontinued Data reviewed Latest Ref Rng 04/18/2024 04/20/2024 04/26/2024 05/13/2024 WBC 3.70 - 11.00 k/uL 10.31 RBC 3.90 - 5.20 m/uL 3.92 Hemoglobin 11.5 - 15.5 g/dL 11.7 Hematocrit 36.0 - 46.0 % 35.4 (L) MCV 80.0 - 100.0 fL 90.3 MCH 26.0 - 34.0 pg 29.8 MCHC 30.5 - 36.0 g/dL 33.1 RDW-CV 11.5 - 15.0 % 13.1 Platelet Count 150 - 400 k/uL 402 (H) MPV 9.0 - 12.7 fL 10.2 Neut% % 67.6 Abs Neut (ANC) 1.45 - 7.50 k/uL 6.98 Lymph% % 22.2 Abs Lymph 1.00 - 4.00 k/uL 2.29 Bledsoe% % 8.1 Abs Bledsoe <0.87 k/uL 0.83 Eosin% % 0.8 Abs Eosin <0.46 k/uL 0.08 Baso% % 0.9 Abs Baso <0.11 k/uL 0.09 Immature Gran % % 0.4 IMMATURE GRANS (ABS) <0.10 k/uL 0.04 NRBC /100 WBC 0.0 Absolute nRBC <0.01 k/uL <0.01 DTYPE Auto Protein, Total 6.3 - 8.0 g/dL 7.4 7.2 6.9 7.1 Albumin 3.9 - 4.9 g/dL 4.5 4.4 3.9 Calcium 8.5 - 10.2 mg/dL 11.3 (H) 11.1 (H) 9.4 Bilirubin, Total 0.2 - 1.3 mg/dL 0.4 0.2 0.3 Alkaline Phosphatase 34 - 123 U/L 77 75 66 AST 13 - 35 U/L 14 16 21 ALT 7 - 38 U/L 9 11 15 Glucose 74 - 99 mg/dL 104 (H) 108 (H) 126 (H) BUN 7 - 21 mg/dL 36 (H) 36 (H) 26 (H) Creatinine 0.58 - 0.96 mg/dL 0.89 1.02 (H) 1.06 (H) Sodium 136 - 144 mmol/L 139 142 143 Potassium 3.7 - 5.1 mmol/L 3.8 3.6 (L) 4.2 Chloride 98 - 107 mmol/L 97 (L) 99 101 CO2 22 - 30 mmol/L 29 29 25 Anion Gap 8 - 15 mmol/L 13 14 17 (H) eGFR >=60 mL/min/1.73m 66 56 (L) 54 (L) Albumin 3.43 - 5.41 g/dL 4.04 Alpha 1 Globulin 0.18 - 0.43 g/dL 0.26 Alpha 2 Globulin 0.42 - 0.98 g/dL 0.63 Beta Globulin 0.61 - 1.17 g/dL 0.94 Gamma Globulin 0.53 - 1.51 g/dL 1.04 Interpretation (Prot Electro) No definitive M protein is identified on protein electrophoresis. No definitive M protein is identified on protein electrophoresis. M-Protein Location -- M-Protein Concentration <=0.00 g/dL 0.00 SPE Staff Review Reviewed by Estefani Dodd M.D. Normalized Calcium 1.08 - 1.30 mmol/L 1.41 (H) Ionized Calcium 1.08 - 1.30 mmol/L 1.43 (H) Vitamin D 25 Hydroxy 31.0 - 80.0 ng/mL 51.7 55.1 Vitamin B12 232 - 1,245 pg/mL 267 TSH 0.270 - 4.200 mIU/L 1.720 PTH, Intact 15 - 65 pg/mL 12 (L) PTH Related Peptide 0.0 - 3.4 pmol/L 3.0 Vit D1,25 Dihydroxy 19.9 - 79.3 pg/mL 71.4 Legend: (L) Low (H) High ASSESSMENT/PLAN: 1. Diabetes mellitus with macular edema, both eyes (HCC) - ICD9: 250.50, 362.07, ICD10: E11.311 (primary diagnosis) - Control undetermined, due for labs - Continue current medications - Statin prescribed - atorvastatin - Blood glucose monitoring on a once daily schedule - Counseled on healthy diet and regular exercise - Discussed need for and benefit of weight loss. BMI 23.26 kg/(m^2) - Discussed diabetic education issues of diabetes complications and monitoring required, hypoglycemic/hyperglycemic symptoms, and medication-specific side effects and monitoring - Follow up in 6 months, sooner should any other issues arise. - HEMOGLOBIN A1C - CONSULT TO PODIATRY 2. Fatigue, unspecified type - ICD9: 780.79, ICD10: R53.83 Symptoms not much improved. Still pursuing possible hypertrophic cardiomyopathy on echo. Will f/u recommendations. Discussed increased caloric intake and supplementation with Boost/Ensure 2-3 times per day. 3. Abnormal echocardiogram - ICD9: 793.2, ICD10: R93.1 F/u cardiology recommendations. 4. Aortic ejection murmur - ICD9: 424.1, ICD10: I35.1 Stable. No changes. 5. Essential hypertension, benign - ICD9: 401.1, ICD10: I10 - Controlled - Continue current medications - Recommend home blood pressure monitoring, to bring results to next visit - Encouraged sodium restriction, DASH or Mediterranean diet - Recommend regular aerobic exercise 6. Hyperlipidemia LDL goal <100 - ICD9: 272.4, ICD10: E78.5 - Controlled - Continue current medications - Counseled on healthy diet and regular exercise 7. Hammer toe of left foot - ICD9: 735.4, ICD10: M20.42 Referral to podiatry for orthotics. Check tops and bottoms of feet daily. - CONSULT TO PODIATRY 8. Weight loss, unintentional - ICD9: 783.21, ICD10: R63.4 Increase caloric intake. Check weights 2-3 times per week. Call with weight loss or f/u in 3 months. 9. Encounter for immunization - ICD9: V03.89, ICD10: Z23 - P[employer] COVID-19 VACCINE AGE 12+ YR (SAMUEL) I spent a total of 40 minutes on the date of the service which included preparing to see the patient, [id number] patient care, completing clinical documentation, obtaining and/or reviewing separately obtained history, performing a medically appropriate examination, counseling and educating the pat ient/family/caregiver, and ordering medications, tests, or procedures. Deonte Hamm MD documented [facility] Evaluation note* Diagnosis Onset Date Resolution Status Admit Date Diabetes chronic May 25 10:25am Dyslipidemia chronic May 25, 2024 10:25am Ectopic beats chronic May 25, 2024 10:25am HOCM (hypertrophic obstructi ve cardiomyopathy) chronic May 25, 2024 10:25am Hypertension chronic May 25, 2024 10:25am [facility] Work Phone: 1(451) 336-938604-17-2025 Evaluation note* Diagnosis Onset Date Resolution Status Admit Date Diabetes chronic May 25 10:25am Dyslipidemia chronic May 25, 2024 10:25am Ectopic beats chronic May 25, 2024 10:25am HOCM (hypertrophic obstructi ve cardiomyopathy) chronic May 25, 2024 10:25am Hypertension chronic May 25, 2024 10:25am Acidosis, lactic acute June 5:57pm Constipation acute June 26 5:57pm Type 2 GA (myocardial infarction) acute June 26, 2024 5 :57pm [facility] Work Phone: 1(493) 267-744104-17-2025 Evaluation note* Diagnosis Onset Date Resolution Status Admit Date Diabetes chronic May 25 10:25am Dyslipidemia chronic May 25, 2024 10:25am Ectopic beats chronic May 25, 2024 10:25am HOCM (hypertrophic obstructi ve cardiomyopathy) chronic May 25, 2024 10:25am Hypertension chronic May 25, 2024 10:25am Acidosis, lactic acute June 5:57pm Adverse drug reaction acute June 26, 2024 5:57pm Constipation acute June 26 5:57pm 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, 2024 5:57pm Nausea and vomiting acute June 082024 5:57pm Toxic metabolic encephalopathy acute June 26, 2024 5:57pm Type 2 GA (myocardial infarction) acute June 26, 2024 5 :57pm Diabetes chronic July 06, 2024 1:43pm Dyslipidemia chronic July 06 1:43pm Ectopic beats chronic July 06, 1:43pm HOCM (hypertrophic obstructi ve cardiomyopathy) chronic July 06, 2024 1 :43pm Hypertension chronic July 06 1:43pm [employer] Work Phone: 1(864) 592-397304-08-2025 Telephone encounter Note* Telephone Encounter - Geraldine Romano LPN - 05/16/2024 4:08 PM EDT Patient updated and voiced understanding. Geraldine Romano LPN [facility]04-08-2025 Miscellaneous Notes* Telephone Encounter - Geraldine Romano LPN - 05/16/2024 4:08 PM EDT Patient updated and voiced understanding. Geraldine Romano LPN * Telephone Encounter - Deonte Hamm MD - 05/16/2024 10:39 AM EDT May resume caltrate. * Telephone Encounter - Em Sommer LPN - 05/15/2024 5:00 PM EDT Telephone call placed to patient. Made aware of results and recommendations. Voices understanding. Asking if she can restar and take Caltrate twice daily again? Please advise. Em Sommer LPN * Telephone Encounter - Em Sommer LPN - 05/15/2024 4:56 PM EDT ----- Message from Deonte Hamm MD sent at 05/15/2024 9:08 AM EDT ----- Calcium level is back to normal after stopping her HCTZ. No further workup needed for this. Kidney function remains impaired. Recommend low sodium diet <2,000 mg per day, avoidance of NSAIDs, and increased water intake. Recent UA negative. Will recheck at future OV. documented in [facility]04[facility] Telephone encounter Note * Telephone Encounter - Deonte Hamm MD - 05/16/2024 10:39 AM EDT May resume caltrate. [facility]04[facility] Telephone encounter Note* Telephone Encounter - Em Sommer LPN - 05/15/2024 5:00 PM EDT Telephone call placed to patient. Made aware of results and recommendations. Voices understanding. Asking if she can restar and take Caltrate twice daily again? Please advise. Em Sommer LPN [facility]04-07-[facility] Telephone encounter Note* Telephone Encounter - Em Sommer LPN - 05/15/2024 4:56 PM EDT ----- Message from Deonte Hamm MD sent at 05/15/2024 9:08 AM EDT ----- Calcium level is back to normal after stopping her HCTZ. No further workup needed for this. Kidney function remains impaired. Recommend low sodium diet <2,000 mg per day, avoidance of NSAIDs, and increased water intake. Recent UA negative. Will recheck at future OV. [facility] Telephone encounter Note* Telephone Encounter - Geraldine Romano LPN - 04/28/2024 3:18 PM EDT Patient updated and voiced understanding. Geraldine Romano LPN [facility]03-[facility] Miscellaneous Notes* Telephone Encounter - Geraldine Romano LPN - 04/28/2024 3:18 PM EDT Patient updated and voiced understanding. Geraldine Romano LPN * Telephone Encounter - Geraldine Romano LPN - 04/28/2024 1:41 PM EDT ----- Message from Deonte Hamm MD sent at 04/28/2024 11:54 AM EDT ----- Protein electrophoresis testing does not show any signs of multiple myeloma. Normal testing. We did stop her HTCZ and recommended holding her calcium supplement. I would recommend checking CMPin about 2 weeks to see if level is improving. If not, consider further imaging of chest, abdomen, and pelvis with CT scan. documented in [facility] encounter[facility] Telephone encounter Note * Telephone Encounter - Geraldine Romano LPN - 04/28/2024 3:17 PM EDT Patient updated and voiced understanding. Geraldine Romano LPN [facility]03-21-2025 Telephone encounter Note* Telephone Encounter - Geraldine Romano LPN - 04/28/2024 3:17 PM EDT ----- Message from Deonte Hamm MD sent at 04/27/2024 2:22 PM EDT ----- Abdominal xray negative for bowel obstruction. Small to moderate amount of stool noted. Continue treatment as discussed. [facility]03[facility] Miscellaneous Notes* Telephone Encounter - Geraldine Romano LPN - 04/28/2024 3:17 PM EDT Patient updated and voiced understanding. Geraldine Romano LPN * Telephone Encounter - Geraldine Romano LPN - 04/28/2024 3:17 PM EDT ----- Message from Deonte Hamm MD sent at 04/27/2024 2:22 PM EDT ----- Abdominal xray negative for bowel obstruction. Small to moderate amount of stool noted. Continue treatment as discussed. documented in [facility] encounterSt[facility]03-[facility] Telephone encounter Note * Telephone Encounter - Geraldine Romano LPN - 04/28/2024 1:41 PM EDT ----- Message from Deonte Hamm MD sent at 04/28/2024 11:54 AM EDT ----- Protein electrophoresis testing does not show any signs of multiple myeloma. Normal testing. We did stop her HTCZ and recommended holding her calcium supplement. I would recommend checking CMPin about 2 weeks to see if level is improving. If not, consider further imaging of chest, abdomen, and pelvis with CT scan. [facility]03[facility] History of Present illness Narrative* Brinda Fajardo RT(R) - 04/27/2024 2:00 PM EDT Radiology Service Progress Note PATIENT NAME: Monisha Fitzpatrick DATE OF SERVICE: April 27, 2024 TIME: 1:54 PM PATIENT IDENTITY VERIFICATION COMPLETED USING TWO (2) IDENTIFIERS: Name and Date of confirmedby patient verbally. FALL SCREENING: Has the patient had 2 falls in the last year or 1 fall with injury or currently using an Ambulatory Assistive Device (Walker, Cane, Wheelchair, Crutches, etc.)? No PATIENT GENDER DATA: Assigned female at . status: : No status:NO. PATIENT RELEVANT IMPLANT DATA REVIEWED: Not Applicable PATIENT PRESENTS WITH AN IMPLANTABLE OR ATTACHED HEAD AUTOMATIC SAWYER: No RADIOLOGY DEPARTMENT: General X-ray: Exam(s) Completed: Abdomen X-Ray: Abdomen with Upright PERIPHERAL IV DATA: Not applicable SIGNED BY: RT Merrill(Ildefonso) April 27, 2024 1:54 PM documented in this encounterSt. [facility]03-[facility]-2025 NoteHNO ID: [id number] Author: BRINDA FAJARDO RT (R) Service: Radiology Author Type: Technologist Type: Progress Notes Filed: 04/27/2024 14:08 Note Text: Radiology Service Progress Note PATIENT NAME: Monisha Fitzpatrick DATE OF SERVICE: April 27, 2024 TIME: 1:54 PM PATIENT IDENTITY VERIFICATION COMPLETED USING TWO (2) IDENTIFIERS: Name and Date of confirmed by patient verbally. FALL SCREENING: Has the patient had 2 falls in the last year or 1 fall with injury or currently using an Ambulatory Assistive Device (Walker, Cane, Wheelchair, Crutches, etc.)? No PATIENT GENDER DATA: Assigned female at . status: : No status: NO. PATIENT RELEVANT IMPLANT DATA REVIEWED: Not Applicable PATIENT PRESENTS WITH AN IMPLANTABLE OR ATTACHED HEAD AUTOMATIC SAWYER: No RADIOLOGY DEPARTMENT: General X-ray: Exam(s) Completed: Abdomen X-Ray: Abdomen with Upright PERIPHERAL IV DATA: Not applicable SIGNED BY: RT Merrill(R) April 27, 2024 1:54 [facility]03-20-2025 Instructions* Patient Instructions* Deonte Hamm MD - 04/27/2024 1:40 PM EDT Hold your calcium supplement and take the metoprolol in place of the hydrochlorothiazide for your high calcium level. Continue with drinking at least 60 ounces of water per day along with high fiber diet or fiber supplement and miralax 2 times per day until you are having at least 1-2 soft bowel movements per day. After that you can use miralax as needed. Go to the ER if you have severe abdominal pain, cannot pass gas or stool, with nausea and vomiting. documented in [facility] encounterSt[facility]03-[facility]-2025 NoteHNO ID: [id number] Author: DEONTE HAMM MD Service: ? Author Type: Physician Type: Progress Notes Filed: 04/27/2024 14:31 Note Text: Chief Complaint Patient presents with: Rectal Problem Constipation HPI Monisha Fitzpatrick is a 78 year old female who presents here today for Above Complaints. Patient here today to discuss constipation and hemorrhoids. States that developed hard stools with small bowel movements in the last 4-5 days, but has been able to have bowel movement yesterday and today with miralax, metamucil, and colace. Bowel movements have been softer with this. Eating more fruits and vegetables as well. Admits to small amount of blood on TP with painful hemorrhoids. Using OTC hemorrhoid relief cream several times per day which helps somewhat with the pain. Denies abdominal pain, nausea, vomiting, diarrhea, melena. Past medical history, appointments, medications, allergies reviewed. Previous Medical History PAST MEDICAL HISTORY Diagnosis Date Aortic ejection murmur 04/06/2014 Arthritis of both knees 01/14/2017 Diabetes mellitus with macular edema, both eyes ([facility]) 02/23/2013 Dr. Oliva, Dr. CorreaNzyr-Gavpao-vdryl Esophageal reflux External hemorrhoids without mention of complication Hearing aid worn Hyperlipidemia LDL goal <100 11/22/2015 Internal hemorrhoids without mention of complication Laryngospasm epi pen Nonproliferative diabetic retinopathy of both eyes ([facility]) 02/23/2013 PMH - PAST MEDICAL HISTORY OF change in bowel habits PMH - PAST MEDICAL HISTORY OF breathing shut down of and on Renal cyst 12/25/2015 right renal cyst Retinal edema 01/23/2014 Left eye - See scanned documents Retinal hemorrhage 07/19/2010 Unspecified constipation Unspecified essential hypertension Vasomotor rhinitis 04/06/2014 Venous (peripheral) insufficiency 08/13/2011 White coat hypertension 05/01/2013 Previous Surgical History PAST SURGICAL HISTORY Procedure Laterality Date CATARACT EXTRACTION HX Bilateral 10/2018, 09/2020 COLONOSCOPY FLX DX W/COLLJ SPEC WHEN PFRMD 08/21/2005 Repeat in FNA WITH IMAGING Right 12/06/2015 U/S FNA right groin PAST SURGICAL HISTORY OF CHILD TONSILS PAST SURGICAL HISTORY OF Left laser surgery to left eye SCREENING COLONSCOPY NOT HIGH RISK 02/2016 normal Family History FAMILY HISTORY Problem Relation Age of Onset other (gallbladder problems) Mother ulcers/stomach problems Emphysema Father ulcers Coronary Artery Disease Father Diabetes Paternal Grandmother Diabetes Paternal Aunt Diabetes Paternal Uncle Diabetes Maternal Uncle Patient Allergies ALLERGIES Allergen Reactions Lisinopril Swelling angioedema Doxycycline GI Upset Nausea w/o vomiting, bad taste Penicillin G Prednisone JITTERY Sulfa (Sulfonamide * Current Medications Current Outpatient Medications on File Prior to Visit Medication Sig metoprolol succinate ER (TOPROL XL) 25 mg 24 hr tablet Take 1 tablet by mouth once daily. blood sugar diagnostic (ACCU-CHEK FAISAL) test strip Test blood sugar(s) one time daily. Dx: E11.9. Insulin: No albuterol HFA (VENTOLIN HFA) 90 mcg/actuation inhaler Inhale 2 Puffs as instructed every 4 hours as needed for wheezing/shortness of breath. losartan (COZAAR) 100 mg tablet Take 1 tablet by mouth once daily. amLODIPine (NORVASC) 10 mg tablet Take 1 tablet by mouth once daily. metFORMIN (GLUCOPHAGE) 500 mg tablet Take 2 tablets by mouth two times a day with meals. . atorvastatin (LIPITOR) 20 mg tablet Take 1 tablet by mouth daily at bedtime. For cholesterol. EPINEPHrine (EPIPEN) 0.3 mg/0.3 mL auto-injector 0.3 ml subcutaneously as needed for hypersensitivity reaction fluticasone (FLONASE) 50 mcg/actuation nasal spray Use 2 Sprays in each nostril once daily. ONE TO TWO SPRAYS TO EACH NOSTRIL ONCE DAILY Lancing Device with Lancets (ACCU-CHEK FASTCLIX LANCING DEV) 1 Each as directed. Use as directed. DX: E11.9, Insulin: No aflibercept opthalmic intravitreal (EYLEA) 2 mg/0.05 mL soln Use 0.05 mL in the left eye one time only for 1 dose. Lancets (ACCU-CHEK MULTICLIX LANCET) lancets 1 Each as directed. daily. Use as instructed. Dx 250.00 No insulin ibuprofen (MOTRIN) 400 mg tablet Take 1 tablet by mouth twice daily as needed for Pain. docusate sodium (COLACE) 100 mg capsule Take 100 mg by mouth twice daily. psyllium seed/sucrose(METAMUCIL SMOOTH TEXTURE 28 % PACKET) twicw daily CALCIUM 600 + D 600 MG-125 UNIT TAB Take one(1) tablet two(2) times daily. No current facility-administered medications on file prior to visit. Social History Social History Tobacco Use Smoking status: Never Smokeless tobacco: Never Substance Use Topics Alcohol use: No Drug use: No Review of Symptoms REVIEW OF SYSTEMS See HPI EXAM: BP 110/72 Pulse 98 Resp 14 Wt 63.7 kg (140 lb 6.4 oz) BMI 23.36 kg/m? General Appearance: Well appearing, alert, in no acute distres (more content not included)...[facility]03-20-2025 History of Present illness Narrative* Deonte Hamm MD - 04/27/2024 1:11 PM EDT Chief Complaint Patient presents with: Rectal Problem Constipation HPI Monisha Fitzpatrick is a 78 year old female who presents here today for Above Complaints. Patient here today to discuss constipation and hemorrhoids. States that developed hard stools with small bowel movements in the last 4-5 days, but has been able to have bowel movement yesterday and today with miralax, metamucil, and colace. Bowel movements have been softer with this. Eating more fruits and vegetables as well. Admits to small amount of blood on TP with painful hemorrhoids. Using OTC hemorrhoid relief cream several times per day which helps somewhat with the pain. Denies abdominal pain, nausea, vomiting, diarrhea, melena. Past medical history, appointments, medications, allergies reviewed. Previous Medical History PAST MEDICAL HISTORY Diagnosis Date Aortic ejection murmur 04/06/2014 Arthritis of both knees 01/14/2017 Diabetes mellitus with macular edema, both eyes ([facility]) 02/23/2013 Dr. Oliva, Dr. CorreaPqrw-Hgsvjm-lqnle Esophageal reflux External hemorrhoids without mention of complication Hearing aid worn Hyperlipidemia LDL goal <100 11/22/2015 Internal hemorrhoids without mention of complication Laryngospasm epi pen Nonproliferative diabetic retinopathy of both eyes ([facility]) 02/23/2013 PMH - PAST MEDICAL HISTORY OF change in bowel habits PMH - PAST MEDICAL HISTORY OF breathing shut down of and on Renal cyst 12/25/2015 right renal cyst Retinal edema 01/23/2014 Left eye - See scanned documents Retinal hemorrhage 07/19/2010 Unspecified constipation Unspecified essential hypertension Vasomotor rhinitis 04/06/2014 Venous (peripheral) insufficiency 08/13/2011 White coat hypertension 05/01/2013 Previous Surgical History PAST SURGICAL HISTORY Procedure Laterality Date CATARACT EXTRACTION HX Bilateral 10/2018, 09/2020 COLONOSCOPY FLX DX W/COLLJ SPEC WHEN PFRMD 08/21/2005 Repeat in FNA WITH IMAGING Right 12/06/2015 U/S FNA right groin PAST SURGICAL HISTORY OF CHILD TONSILS PAST SURGICAL HISTORY OF Left laser surgery to left eye SCREENING COLONSCOPY NOT HIGH RISK 02/2016 normal Family History FAMILY HISTORY Problem Relation Age of Onset other (gallbladder problems) Mother ulcers/stomach problems Emphysema Father ulcers Coronary Artery Disease Father Diabetes Paternal Grandmother Diabetes Paternal Aunt Diabetes Paternal Uncle Diabetes Maternal Uncle Patient Allergies ALLERGIES Allergen Reactions Lisinopril Swelling angioedema Doxycycline GI Upset Nausea w/o vomiting, bad taste Penicillin G Prednisone JITTERY Sulfa (Sulfonamide * Current Medications Current Outpatient Medications on File Prior to Visit Medication Sig metoprolol succinate ER (TOPROL XL) 25 mg 24 hr tablet Take 1 tablet by mouth once daily. blood sugar diagnostic (ACCU-CHEK FAISAL) test strip Test blood sugar(s) one time daily. Dx: E11.9. Insulin: No albuterol HFA (VENTOLIN HFA) 90 mcg/actuation inhaler Inhale 2 Puffs as instructed every 4 hours asneeded for wheezing/shortness of breath. losartan (COZAAR) 100 mg tablet Take 1 tablet by mouth once daily. amLODIPine (NORVASC) 10 mg tablet Take 1 tablet by mouth once daily. metFORMIN (GLUCOPHAGE) 500 mg tablet Take 2 tablets by mouth two times a day with meals. . atorvastatin (LIPITOR) 20 mg tablet Take 1 tablet by mouth daily at bedtime. For cholesterol. EPINEPHrine (EPIPEN) 0.3 mg/0.3 mL auto-injector 0.3 ml subcutaneously as needed for hypersensitivity reaction fluticasone (FLONASE) 50 mcg/actuation nasal spray Use 2 Sprays in each nostril once daily. ONE TO TWO SPRAYS TO EACH NOSTRIL ONCE DAILY Lancing Device with Lancets (ACCU-CHEK FASTCLIX LANCING DEV) 1 Each as directed. Use as directed. DX: E11.9, Insulin: No aflibercept opthalmic intravitreal (EYLEA) 2 mg/0.05 mL soln Use 0.05 mL in the left eye one time only for 1 dose. Lancets (ACCU-CHEK MULTICLIX LANCET) lancets 1 Each as directed. daily. Use as instructed. Dx 250.00 No insulin ibuprofen (MOTRIN) 400 mg tablet Take 1 tablet by mouth twice daily as needed for Pain. docusate sodium (COLACE) 100 mg capsule Take 100 mg by mouth twice daily. psyllium seed/sucrose(METAMUCIL SMOOTH TEXTURE 28 % PACKET) twicw daily CALCIUM 600 + D 600 MG-125 UNIT TAB Take one(1) tablet two(2) times daily. No current facility-administered medications on file prior to visit. Social History Social History Tobacco Use Smoking status: Never Smokeless tobacco: Never Substance Use Topics Alcohol use: No Drug use: No Review of Symptoms REVIEW OF SYSTEMS See HPI EXAM: BP 110/72 Pulse 98 Resp 14 Wt 63.7 kg (140 lb 6.4 oz) BMI 23.36 kg/m General Appearance: Well appearing, alert, in no acute distress, well-hydrated, well nourished.. Skin: Skin color, texture, turgor normal, no suspicious rashes or lesions. Abdomen: Normal abdominal exam, Abdomen soft, non-tender. Bowel sounds normal. No masses, organomegaly. Rectal: Negative findings: anal sphincter tone normal, Positive findings: multiple external hemorrhoids without thrombosis. TTP. No internal hemorrhoids palpable. No active bleeding. Vault negative for stool. Chaperoned by Ashleigh Donohue LPN SENSITIVE EXAMINATION CONSENT: The sensitive examination was discussed with the Patient or Patient's Authorized Rim Roller Setter. Asapplicable, any other physician, advance practice provider, medical student, or other health professional student that will be observing or involved in the sensitive examination for educational or training purposes was discussed with the Patient or Authorized Rim Roller Setter. The Patient or Authorized Rim Roller Setter has agreed to proceed with the sensitive examination. Health Maintenance List Depression Screening Never done Anxiety Screening Never done BP Controlled (<130/80) Never done Advance Directive Discussion Never done Diabetic Foot Exam due on 05/25/2024 HbA1C due on 05/31/2024 Covid-19 Vaccine() due on 05/31/2024 DTaP,Tdap,Td Vaccine(3 - Td or Tdap) due on 06/15/2024 Dilated Retinal Exam due on 10/24/2024 LDL Cholesterol due on 11/30/2024 Urine Albumin:Creatinine Ratio due on 12/02/2024 Annual PCP Team Chronic Disease Visit due on 04/18/2025 Bone Density Screening Completed Influenza Vaccine Completed RSV Vaccine Completed Hepatitis C Screening Completed Shingrix Vaccine Completed Pneumococcal Vaccine: 50+ Completed Mammogram Screening Discontinued Colorectal Cancer Screening Discontinued Data reviewed Latest Ref Rng 04/18/2024 04/20/2024 WBC 3.70 - 11.00 k/uL 10.31 RBC 3.90 - 5.20 m/uL 3.92 Hemoglobin 11.5 - 15.5 g/dL 11.7 Hematocrit 36.0 - 46.0 % 35.4 (L) MCV 80.0 - 100.0 fL 90.3 MCH 26.0 - 34.0 pg 29.8 MCHC 30.5 - 36.0 g/dL 33.1 RDW-CV 11.5 - 15.0 % 13.1 Platelet Count 150 - 400 k/uL 402 (H) MPV 9.0 - 12.7 fL 10.2 Neut% % 67.6 Abs Neut (ANC) 1.45 - 7.50 k/uL 6.98 Lymph% % 22.2 Abs Lymph 1.00 - 4.00 k/uL 2.29 Bledsoe% % 8.1 Abs Bledsoe <0.87 k/uL 0.83 Eosin% % 0.8 Abs Eosin <0.46 k/uL 0.08 Baso% % 0.9 Abs Baso <0.11 k/uL 0.09 Immature Gran % % 0.4 IMMATURE GRANS (ABS) <0.10 k/uL 0.04 NRBC /100 WBC 0.0 Absolute nRBC <0.01 k/uL <0.01 DTYPE Auto Protein, Total 6.3 - 8.0 g/dL 7.4 7.2 Albumin 3.9 - 4.9 g/dL 4.5 4.4 Calcium 8.5 - 10.2 mg/dL 11.3 (H) 11.1 (H) Bilirubin, Total 0.2 - 1.3 mg/dL 0.4 0.2 Alkaline Phosphatase 34 - 123 U/L 77 75 AST 13 - 35 U/L 14 16 ALT 7 - 38 U/L 9 11 Glucose 74 - 99 mg/dL 104 (H) 108 (H) BUN 7 - 21 mg/dL 36 (H) 36 (H) Creatinine 0.58 - 0.96 mg/dL 0.89 1.02 (H) Sodium 136 - 144 mmol/L 139 142 Potassium 3.7 - 5.1 mmol/L 3.8 3.6 (L) Chloride 98 - 107 mmol/L 97 (L) 99 CO2 22 - 30 mmol/L 29 29 Anion Gap 8 - 15 mmol/L 13 14 eGFR >=60 mL/min/1.73m 66 56 (L) Normalized Calcium 1.08 - 1.30 mmol/L 1.41 (H) Ionized Calcium 1.08 - 1.30 mmol/L 1.43 (H) Vitamin D 25 Hydroxy 31.0 - 80.0 ng/mL 51.7 55.1 Vitamin B12 232 - 1,245 pg/mL 267 TSH 0.270 - 4.200 mIU/L 1.720 PTH, Intact 15 - 65 pg/mL 12 (L) PTH Related Peptide 0.0 - 3.4 pmol/L 3.0 Vit D1,25 Dihydroxy 19.9 - 79.3 pg/mL 71.4 Legend: (L) Low (H) High ASSESSMENT/PLAN: 1. Acute constipation - ICD9: 564.00, ICD10: K59.00 (primary diagnosis) Improving with OTC regimen. Discussed increased PO fluid and fiber intake, stool softeners, and miralax 1-2 times daily until symptoms resolve. Check KUB to rule out bowel obstruction and check stoolburden. Discussed recent hypercalcemia may be contributing. Workup is still ongoing for this. Red flags for re-assessment reviewed with patient in detail. - XR ABDOMEN 2V ROUTINE SUPINE W UPRIGHT/DECUB/CTL - XR ABDOMEN 2V ROUTINE SUPINE W UPRIGHT/DECUB/CTL 2. External hemorrhoids - ICD9: 455.3, ICD10: K64.4 Discussed increased PO fluid and fiber intake, sitz baths, anusol cream, preparation H to improve symptoms and prevent recurrence. Given information for home. Red flags for re-assessment reviewed with patient in detail. - HYDROCORTISONE 2.5 % TOPICAL CREAM WITH PERINEAL APPLICATOR 3. BRBPR (bright red blood per rectum) - ICD9: 569.3, ICD10: K62.5 Likely 2/2 hemorrhoids. No bleeding on exam today. See above. Deonte Hamm MD documented [facility] Telephone encounter Note * Telephone Encounter - Em Sommer LPN - 04/26/2024 2:57 PM EDT Patient telephoned. Scheduled for tomorrow at 1pm. Em Sommer LPN [facility] Miscellaneous Notes* Telephone Encounter - Em Sommer LPN - 04/26/2024 2:57 PM EDT Patient telephoned. Scheduled for tomorrow at 1pm. Em Sommer LPN * Telephone Encounter - Deonte Hamm MD - 04/26/2024 2:16 PM EDT Agree with recommendations. I have openings tomorrow so we can check for hemorrhoids and discuss symptoms/treatment further. * Telephone Encounter - Sol Veras RN - 04/26/2024 1:36 PM EDT Please review information below. Protocol recommends see provider within 2 weeks. Pt wondering whatelse she can do or take. Please review below to see what pt is already taking daily. Encouraged pt to try some warm prune juice. Reason for Disposition [1] Uses laxative (e.g., PEG / Miralax, Milk of Magnesia) or enema AND [2] more than once a month Answer Assessment - Initial Assessment Questions 1. STOOL PATTERN OR FREQUENCY: Normally has one or two BMs a day. Last good normal BM was last Wednesday. Pt states she has been passing maybe a 3 x 0.5 inch mushy stool since then. 2. STRAINING: States she has to strain to push out a little bit of stool 3. ONSET: Over the weekene 5. RECTAL PAIN: Pt c/o rectal pain when the stool comes out and also feels some rectal pressure when she gets up and walks around for a bit. Then she goes to the bathroom and strains to push a littlestool out. Pt unsure if she has hemorrhoids. Rectal discomfort is mild to mod. 6. BM COMPOSITION: States not always hard-sometimes seems a little softer 7. BLOOD ON STOOLS: Denies 8. CHRONIC CONSTIPATION: Pt had this problem a long time ago and Dr. Vasquez put her on a regiman of Metamucil twice daily and Colace twice daily. But pt now takes Colace 100 mg in the morning and in the evening. Takes a heaping teaspoon of Metamucil in a glass of water around noon and then 2 capfulsof Miralax mixed in water at bedtime. 8. CHANGES IN DIET OR HYDRATION: Pt states she is not eating as much as she just hasn't been feeling well. Also states she doesn't drink much throughout the day. Maybe a glass of [place] juice for breakfast, water with her pills, the glasses of water she drinks with Metamucil and Miralax in them andmaybe another glass throughout the day. Pt aware she needs to be drinking more. 9. MEDICINES: Denies any new medicines or taking any narcotic pain medicines. 10. LAXATIVES: pt takes Colace 100 mg in the morning and in the evening. Takes a heaping teaspoon of Metamucil in a glass of water around noon and then 2 capfuls of Miralax mixed in water at bedtime. 11. ACTIVITY: Pt doesn't do much walking except around her house. States her activity is decreased because she isn't feeling well. 12. CAUSE: unsure 13. MEDICAL HISTORY: hx of constipation in the past-has been on stool softeners and Metamucil for years. Thinks she has a hx of hemorrhoids. 14. OTHER SYMPTOMS: Denies abdomen pain or discomfort, bloating, fever, or vomiting. Denies nausea but states she just doesn't feel well and hasn't had much of an appetite. States abd is soft. 15. : n/a Protocols used: [id number] documented in this encounterSt. [facility] Telephone encounter Note * Telephone Encounter - Deonte Hamm MD - 04/26/2024 2:16 PM EDT Agree with recommendations. I have openings tomorrow so we can check for hemorrhoids and discuss symptoms/treatment further. [facility] Telephone encounter Note* Telephone Encounter - Sol Veras RN - 04/26/2024 1:36 PM EDT Please review information below. Protocol recommends see provider within 2 weeks. Pt wondering whatelse she can do or take. Please review below to see what pt is already taking daily. Encouraged pt to try some warm prune juice. Reason for Disposition [1] Uses laxative (e.g., PEG / Miralax, Milk of Magnesia) or enema AND [2] more than once a month Answer Assessment - Initial Assessment Questions 1. STOOL PATTERN OR FREQUENCY: Normally has one or two BMs a day. Last good normal BM was last Wednesday. Pt states she has been passing maybe a 3 x 0.5 inch mushy stool since then. 2. STRAINING: States she has to strain to push out a little bit of stool 3. ONSET: Over the weekene 5. RECTAL PAIN: Pt c/o rectal pain when the stool comes out and also feels some rectal pressure when she gets up and walks around for a bit. Then she goes to the bathroom and strains to push a littlestool out. Pt unsure if she has hemorrhoids. Rectal discomfort is mild to mod. 6. BM COMPOSITION: States not always hard-sometimes seems a little softer 7. BLOOD ON STOOLS: Denies 8. CHRONIC CONSTIPATION: Pt had this problem a long time ago and Dr. Vasquez put her on a regiman of Metamucil twice daily and Colace twice daily. But pt now takes Colace 100 mg in the morning and in the evening. Takes a heaping teaspoon of Metamucil in a glass of water around noon and then 2 capfulsof Miralax mixed in water at bedtime. 8. CHANGES IN DIET OR HYDRATION: Pt states she is not eating as much as she just hasn't been feeling well. Also states she doesn't drink much throughout the day. Maybe a glass of [place] juice for breakfast, water with her pills, the glasses of water she drinks with Metamucil and Miralax in them andmaybe another glass throughout the day. Pt aware she needs to be drinking more. 9. MEDICINES: Denies any new medicines or taking any narcotic pain medicines. 10. LAXATIVES: pt takes Colace 100 mg in the morning and in the evening. Takes a heaping teaspoon of Metamucil in a glass of water around noon and then 2 capfuls of Miralax mixed in water at bedtime. 11. ACTIVITY: Pt doesn't do much walking except around her house. States her activity is decreased because she isn't feeling well. 12. CAUSE: unsure 13. MEDICAL HISTORY: hx of constipation in the past-has been on stool softeners and Metamucil for years. Thinks she has a hx of hemorrhoids. 14. OTHER SYMPTOMS: Denies abdomen pain or discomfort, bloating, fever, or vomiting. Denies nausea but states she just doesn't feel well and hasn't had much of an appetite. States abd is soft. 15. : n/a Protocols used: [id number] [facility] Telephone encounter Note* Telephone Encounter - Sol Veras RN - 04/26/2024 1:35 PM EDT Pt returned the call and given all of Dr. Hamm's instructions. Will also forward note to pt's MyChart so her sons can review information as well. Pt will plan on coming in to get labwork drawn in the next couple of days. Pt verbalizes understanding of stopping her HCTZ, picking up the new prescription for Metoprolol and starting that daily. Pt does have a BP machine at home and will start taking her BP and P daily and call with results in [address] Hamm's instructions of symptoms that she needs to call us for. Pt appears to understand all of the above. [facility] Miscellaneous Notes* Telephone Encounter - Sol Veras RN - 04/26/2024 1:35 PM EDT Pt returned the call and given all of Dr. Hamm's instructions. Will also forward note to pt's MyChart so her sons can review information as well. Pt will plan on coming in to get labwork drawn in the next couple of days. Pt verbalizes understanding of stopping her HCTZ, picking up the new prescription for Metoprolol and starting that daily. Pt does have a BP machine at home and will start taking her BP and P daily and call with results in [address] Hamm's instructions of symptoms that she needs to call us for. Pt appears to understand all of the above. * Telephone Encounter - Geraldine Romano LPN - 04/26/2024 12:57 PM EDT Message left for patient to return call to review provider's message. Geraldine Romano LPN * Telephone Encounter - Geraldine Romano LPN - 04/26/2024 12:51 PM EDT ----- Message from Deonte Hamm MD sent at 04/26/2024 9:26 AM EDT ----- Patient's repeat labs for hypercalcemia confirm that her calcium level is elevated. Her testing is negative for hyperparathyroidism or Vitamin D abnormalities. With her recent fatigue, I would recommend further evaluation with protein electrophoresis to rule out conditions like multiple myeloma. I would also recommend stopping her HCTZ as this can contribute to high calcium levels. This will likely cause her blood pressure to increase. Recommend adding on metoprolol 25 mg daily. This will lower her blood pressure and possibly her heart rate. If she has BP cuff at home and HR monitor, wouldhave her check daily and call with readings in 2 weeks. If not, would have her return to office in 2 -3 weeks for BP recheck. Call with symptoms of worsening fatigue, lightheadedness or dizziness. documented in this encounterSt[facility]03[facility] Telephone encounter Note * Telephone Encounter - Geraldine Romano LPN - 04/26/2024 12:57 PM EDT Message left for patient to return call to review provider's message. Geraldine Romano LPN [facility]03-[facility] Telephone encounter Note* Telephone Encounter - Geraldine Romano LPN - 04/26/2024 12:51 PM EDT ----- Message from Deonte Hamm MD sent at 04/26/2024 9:26 AM EDT ----- Patient's repeat labs for hypercalcemia confirm that her calcium level is elevated. Her testing is negative for hyperparathyroidism or Vitamin D abnormalities. With her recent fatigue, I would recommend further evaluation with protein electrophoresis to rule out conditions like multiple myeloma. I would also recommend stopping her HCTZ as this can contribute to high calcium levels. This will likely cause her blood pressure to increase. Recommend adding on metoprolol 25 mg daily. This will lower her blood pressure and possibly her heart rate. If she has BP cuff at home and HR monitor, wouldhave her check daily and call with readings in 2 weeks. If not, would have her return to office in 2 -3 weeks for BP recheck. Call with symptoms of worsening fatigue, lightheadedness or dizziness. [facility] Telephone encounter Note* Telephone Encounter - Yumiko Vaz MA - 04/24/2024 1:37 PM EDT Pt notified. Yumiko Vaz MA [facility]03-17-2025 Miscellaneous Notes* Telephone Encounter - Yumiko Vaz MA - 04/24/2024 1:37 PM EDT Pt notified. Yumiko Vaz MA * Telephone Encounter - Deonte Hamm MD - 04/24/2024 11:54 AM EDT Her calcium level is still high, but I am waiting on the rest of her results to determine the next step. Increase water intake and will call when everything is back. * Telephone Encounter - Steph Venegas LPN - 04/24/2024 11:20 AM EDT Pt is calling for follow up lab results from 04/20. One lab is still in process. When reviewing 04/18 results encounter with pt, pt reports she did not remember being told to drink more water so she did not drink more than she normally does. Steph Venegas LPN documented in this encounterSt[facility]03[facility] Telephone encounter Note * Telephone Encounter - Deonte Hamm MD - 04/24/2024 11:54 AM EDT Her calcium level is still high, but I am waiting on the rest of her results to determine the next step. Increase water intake and will call when everything is back. [facility]03-[facility] Telephone encounter Note* Telephone Encounter - Steph Venegas LPN - 04/24/2024 11:20 AM EDT Pt is calling for follow up lab results from 04/20. One lab is still in process. When reviewing 04/18 results encounter with pt, pt reports she did not remember being told to drink more water so she did not drink more than she normally does. Steph [facility]egas LPN [facility]03-[facility] Telephone encounter Note* Telephone Encounter - Hayde Romero LPN - 04/19/2024 4:39 PM EDT Phoned patient with chest xray results and she was questioning other test results. Went over results, notes from Dr Hamm she will have to have her son call back to schedule Cardiology appt since he would be her transportation. Gave her phone number [phone] and ask for home care scheduler for him to call. Patient said she does not have my chart so did not see this result. [facility]03[facility] Miscellaneous Notes* Telephone Encounter - Hayde Romero LPN - 04/19/2024 4:39 PM EDT Phoned patient with chest xray results and she was questioning other test results. Went over results, notes from Dr Hamm she will have to have her son call back to schedule Cardiology appt since he would be her transportation. Gave her phone number [phone] and ask for home care scheduler for him to call. Patient said she does not have my chart so did not see this result. * Telephone Encounter - Deonte Hamm MD - 04/19/2024 1:33 PM EDT Echo shows heart is pumping normally. Mild stiffness. No significant valve abnormalities. 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 With worsening murmur and fatigue, would recommend referral to cardiology for further evaluation. documented in this encounterSt[facility]03[facility] Telephone encounter Note * Telephone Encounter - Hayde Romero LPN - 04/19/2024 4:30 PM EDT Deonte Hamm MD 04/18/2024 11:59 AM EDT Normal CXR. Phoned patient went over results with understanding. [facility] Miscellaneous Notes* Telephone Encounter - Hayde Romero LPN - 04/19/2024 4:30 PM EDT Deonte Hamm MD 04/18/2024 11:59 AM EDT Normal CXR. Phoned patient went over results with understanding. * Telephone Encounter - Tonya Shine APRN.CNP - 04/19/2024 12:50 PM EDT Please let patient know Dr. Hamm is out today. He can review upon his return. Tonya Shine APRN.CNP * Telephone Encounter - Ghislaine Walsh RN - 04/19/2024 12:39 PM EDT Pt reports she had labs and cxr done, and pcp advised on some of them. States she is just wonderingwhat she is suppose to do now. Please advise patient. documented in this encounterSt. [facility]03-[facility]25 Telephone encounter Note * Telephone Encounter - Deonte Hamm MD - 04/19/2024 1:33 PM EDT Echo shows heart is pumping normally. Mild stiffness. No significant valve abnormalities. 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 With worsening murmur and fatigue, would recommend referral to cardiology for further evaluation. [facility]03[facility] Telephone encounter Note* Telephone Encounter - Tonya Shine APRN.CNP - 04/19/2024 12:50 PM EDT Please let patient know Dr. Hamm is out today. He can review upon his return. Tonya Shine APRN.CNP [facility]03-12-20[facility] Telephone encounter Note* Telephone Encounter - Ghislaine Walsh RN - 04/19/2024 12:39 PM EDT Pt reports she had labs and cxr done, and pcp advised on some of them. States she is just wonderingwhat she is suppose to do now. Please advise patient. [facility] Telephone encounter Note* Telephone Encounter - Dania Calero RN - 04/18/2024 3:07 PM EDT Patient notified of results. Patient verbalizes understanding. Dania Calero RN [facility]03-[facility] Miscellaneous Notes* Telephone Encounter - Dania Calero RN - 04/18/2024 3:07 PM EDT Patient notified of results. Patient verbalizes understanding. Dania Calero RN * Telephone Encounter - Geraldine Romano LPN - 04/18/2024 12:08 PM EDT Message left for patient to return call for results. Geraldine Romano LPN * Telephone Encounter - Geraldine Romano LPN - 04/18/2024 12:07 PM EDT ----- Message from Deonte Hamm MD sent at 04/18/2024 11:59 AM EDT ----- Normal CXR. documented in this encounterSt. [facility]03[facility] Telephone encounter Note * Telephone Encounter - Geraldine Romano LPN - 04/18/2024 12:08 PM EDT Message left for patient to return call for results. Geraldine Romano LPN [facility] Telephone encounter Note* Telephone Encounter - Geraldine Romano LPN - 04/18/2024 12:07 PM EDT ----- Message from Deonte Hamm MD sent at 04/18/2024 11:59 AM EDT ----- Normal CXR. [facility]03[facility] History of Present illness Narrative* Brinda Fajardo RT(Ildefonso) - 04/18/2024 11:10 AM EDT Radiology Service Progress Note PATIENT NAME: Monisha Fitzpatrick DATE OF SERVICE: April 18, 2024 TIME: 11:21 AM PATIENT IDENTITY VERIFICATION COMPLETED USING TWO (2) IDENTIFIERS: Name and Date of confirmedby patient verbally. FALL SCREENING: Has the patient had 2 falls in the last year or 1 fall with injury or currently using an Ambulatory Assistive Device (Walker, Cane, Wheelchair, Crutches, etc.)? No PATIENT GENDER DATA: Assigned female at . status: : No status:NO. PATIENT RELEVANT IMPLANT DATA REVIEWED: Not Applicable PATIENT PRESENTS WITH AN IMPLANTABLE OR ATTACHED HEAD AUTOMATIC SAWYER: No RADIOLOGY DEPARTMENT: General X-ray: Exam(s) Completed: Chest X-Ray PERIPHERAL IV DATA: Not applicable SIGNED BY: RT Merrill(R) April 18, 2024 11:21 AM documented in this encounterSt. [facility]03-[facility]-2025 NoteHNO ID: [id number] Author: BRINDA FAJARDO RT(Ildefonso) Service: Radiology Author Type: Technologist Type: Progress Notes Filed: 04/18/2024 11:30 Note Text: Radiology Service Progress Note PATIENT NAME: Monisha Fitzpatrick DATE OF SERVICE: April 18, 2024 TIME: 11:21 AM PATIENT IDENTITY VERIFICATION COMPLETED USING TWO (2) IDENTIFIERS: Name and Date of confirmed by patient verbally. FALL SCREENING: Has the patient had 2 falls in the last year or 1 fall with injury or currently using an Ambulatory Assistive Device (Walker, Cane, Wheelchair, Crutches, etc.)? No PATIENT GENDER DATA: Assigned female at . status: : No status: NO. PATIENT RELEVANT IMPLANT DATA REVIEWED: Not Applicable PATIENT PRESENTS WITH AN IMPLANTABLE OR ATTACHED HEAD AUTOMATIC SAWYER: No RADIOLOGY DEPARTMENT: General X-ray: Exam(s) Completed: Chest X-Ray PERIPHERAL IV DATA: Not applicable SIGNED BY: RT Merrill(R) April 18, 2024 11:21 [facility]03-11-2025 NoteHNO ID: [id number] Author: DEONTE HAMM MD Service: ? Author Type: Physician Type: Progress Notes Filed: 04/20/2024 09:40 Note Text: Chief Complaint Patient presents with: Fatigue appetite changes HPI Monisha Fitzpatrikc is a 78 year old female who presents here today for Above Complaints. Accompanied today by her son. Patient complaining of fatigue and decreased appetite in the last couple of months. Noted weight loss of 8 lbs since November. Has not started any new medications in the last 2 months. Getting about 7-8 hours of sleep. Naps for 1 hour in the afternoon. Admits to getting up several times at night to urinate which is not new. Denies fever/chills, cough, SOB, [place], wheezing, chest pain, chest congestion, palpitations, LE edema, nausea, vomiting, constipation, diarrhea, abdominal pain, dysphagia, odynophagia, dysuria, hematuria, frequency, urgency, bleeding/bruising, melena, depression. Brought in fasting sugar readings which have all been between 80-120 without hypoglycemia. Past medical history, appointments, medications, allergies reviewed. Previous Medical History PAST MEDICAL HISTORY Diagnosis Date Aortic ejection murmur 04/06/2014 Arthritis of both knees 01/14/2017 Diabetes mellitus with macular edema, both eyes (HCC) 02/23/2013 Dr. Oliva, Dr. 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 Venous (peripheral) insufficiency 08/13/2011 White coat hypertension 05/01/2013 Previous Surgical History PAST SURGICAL HISTORY Procedure Laterality Date CATARACT EXTRACTION HX Bilateral 10/2018, 09/2020 COLONOSCOPY FLX DX W/COLLJ SPEC WHEN PFRMD 08/21/2005 Repeat in FNA WITH IMAGING Right 12/06/2015 U/S FNA right groin PAST SURGICAL HISTORY OF CHILD TONSILS PAST SURGICAL HISTORY OF Left laser surgery to left eye SCREENING COLONSCOPY NOT HIGH RISK 02/2016 normal Family History FAMILY HISTORY Problem Relation Age of Onset other (gallbladder problems) Mother ulcers/stomach problems Emphysema Father ulcers Coronary Artery Disease Father Diabetes Paternal Grandmother Diabetes Paternal Aunt Diabetes Paternal Uncle Diabetes Maternal Uncle Patient Allergies ALLERGIES Allergen Reactions Lisinopril Swelling angioedema Doxycycline GI Upset Nausea w/o vomiting, bad taste Penicillin G Prednisone JITTERY Sulfa (Sulfonamide * Current Medications Current Outpatient Medications on File Prior to Visit Medication Sig blood sugar diagnostic (ACCU-CHEK FAISAL) test strip Test blood sugar(s) one time daily. Dx: E11.9. Insulin: No albuterol HFA (VENTOLIN HFA) 90 mcg/actuation inhaler Inhale 2 Puffs as instructed every 4 hours as needed for wheezing/shortness of breath. hydroCHLOROthiazide 12.5 mg capsule Take 1 capsule by mouth once daily. losartan (COZAAR) 100 mg tablet Take 1 tablet by mouth once daily. amLODIPine (NORVASC) 10 mg tablet Take 1 tablet by mouth once daily. metFORMIN (GLUCOPHAGE) 500 mg tablet Take 2 tablets by mouth two times a day with meals. . atorvastatin (LIPITOR) 20 mg tablet Take 1 tablet by mouth daily at bedtime. For cholesterol. EPINEPHrine (EPIPEN) 0.3 mg/0.3 mL auto-injector 0.3 ml subcutaneously as needed for hypersensitivity reaction fluticasone (FLONASE) 50 mcg/actuation nasal spray Use 2 Sprays in each nostril once daily. ONE TO TWO SPRAYS TO EACH NOSTRIL ONCE DAILY Lancing Device with Lancets (ACCU-CHEK FASTCLIX LANCING DEV) 1 Each as directed. Use as directed. DX: E11.9, Insulin: No aflibercept opthalmic intravitreal (EYLEA) 2 mg/0.05 mL soln Use 0.05 mL in the left eye one time only for 1 dose. Lancets (ACCU-CHEK MULTICLIX LANCET) lancets 1 Each as directed. daily. Use as instructed. Dx 250.00 No insulin ibuprofen (MOTRIN) 400 mg tablet Take 1 tablet by mouth twice daily as needed for Pain. docusate sodium (COLACE) 100 mg capsule Take 100 mg by mouth twice daily. psyllium seed/sucrose(METAMUCIL SMOOTH TEXTURE 28 % PACKET) twicw daily CALCIUM 600 + D 600 MG-125 UNIT TAB Take one(1) tablet two(2) times daily. No current facility-administered medications on file prior to visit. Social History Social History Tobacco Use Smoking status: Never Smokeless tobacco: Never Substance Use Topics Alcohol use: No Drug use: No Review of Symptoms REVIEW OF SYSTEMS See HPI NATALY (more content not included)...[facility]03-11-2025 History of Present illness Narrative* Deonte Hamm MD - 04/18/2024 9:58 AM EDT Chief Complaint Patient presents with: Fatigue appetite changes HPI Monisha Fitzpatrick is a 78 year old female who presents here today for Above Complaints. Accompanied today by her son. Patient complaining of fatigue and decreased appetite in the last couple of months. Noted weight loss of 8 lbs since November. Has not started any new medications in the last 2 months. Getting about 7-8 hours of sleep. Naps for 1 hour in the afternoon. Admits to getting up several times at night to urinate which is not new. Denies fever/chills, cough, SOB, [place], wheezing, chest pain, chest congestion, palpitations, LE edema, nausea, vomiting, constipation, diarrhea, abdominal pain, dysphagia, odynophagia, dysuria, hematuria, frequency, urgency, bleeding/bruising, melena, depression. Brought in fasting sugar readings which have all been between 80-120 without hypoglycemia. Past medical history, appointments, medications, allergies reviewed. Previous Medical History PAST MEDICAL HISTORY Diagnosis Date Aortic ejection murmur 04/06/2014 Arthritis of both knees 01/14/2017 Diabetes mellitus with macular edema, both eyes (FORM[facility]LY [facility]) 02/23/2013 Dr. Oliva, Dr. RoseJtle-Baoucj-bevhb Esophageal reflux External hemorrhoids without mention of complication Hearing aid worn Hyperlipidemia LDL goal <100 11/22/2015 Internal hemorrhoids without mention of complication Laryngospasm epi pen Nonproliferative diabetic retinopathy of both eyes ([facility]) 02/23/2013 PMH - PAST MEDICAL HISTORY OF change in bowel habits PMH - PAST MEDICAL HISTORY OF breathing shut down of and on Renal cyst 12/25/2015 right renal cyst Retinal edema 01/23/2014 Left eye - See scanned documents Retinal hemorrhage 07/19/2010 Unspecified constipation Unspecified essential hypertension Vasomotor rhinitis 04/06/2014 Venous (peripheral) insufficiency 08/13/2011 White coat hypertension 05/01/2013 Previous Surgical History PAST SURGICAL HISTORY Procedure Laterality Date CATARACT EXTRACTION HX Bilateral 10/2018, 09/2020 COLONOSCOPY FLX DX W/COLLJ SPEC WHEN PFRMD 08/21/2005 Repeat in FNA WITH IMAGING Right 12/06/2015 U/S FNA right groin PAST SURGICAL HISTORY OF CHILD TONSILS PAST SURGICAL HISTORY OF Left laser surgery to left eye SCREENING COLONSCOPY NOT HIGH RISK 02/2016 normal Family History FAMILY HISTORY Problem Relation Age of Onset other (gallbladder problems) Mother ulcers/stomach problems Emphysema Father ulcers Coronary Artery Disease Father Diabetes Paternal Grandmother Diabetes Paternal Aunt Diabetes Paternal Uncle Diabetes Maternal Uncle Patient Allergies ALLERGIES Allergen Reactions Lisinopril Swelling angioedema Doxycycline GI Upset Nausea w/o vomiting, bad taste Penicillin G Prednisone JITTERY Sulfa (Sulfonamide * Current Medications Current Outpatient Medications on File Prior to Visit Medication Sig blood sugar diagnostic (ACCU-CHEK FAISAL) test strip Test blood sugar(s) one time daily. Dx: E11.9. Insulin: No albuterol HFA (VENTOLIN HFA) 90 mcg/actuation inhaler Inhale 2 Puffs as instructed every 4 hours asneeded for wheezing/shortness of breath. hydroCHLOROthiazide 12.5 mg capsule Take 1 capsule by mouth once daily. losartan (COZAAR) 100 mg tablet Take 1 tablet by mouth once daily. amLODIPine (NORVASC) 10 mg tablet Take 1 tablet by mouth once daily. metFORMIN (GLUCOPHAGE) 500 mg tablet Take 2 tablets by mouth two times a day with meals. . atorvastatin (LIPITOR) 20 mg tablet Take 1 tablet by mouth daily at bedtime. For cholesterol. EPINEPHrine (EPIPEN) 0.3 mg/0.3 mL auto-injector 0.3 ml subcutaneously as needed for hypersensitivity reaction fluticasone (FLONASE) 50 mcg/actuation nasal spray Use 2 Sprays in each nostril once daily. ONE TO TWO SPRAYS TO EACH NOSTRIL ONCE DAILY Lancing Device with Lancets (ACCU-CHEK FASTCLIX LANCING DEV) 1 Each as directed. Use as directed. DX: E11.9, Insulin: No aflibercept opthalmic intravitreal (EYLEA) 2 mg/0.05 mL soln Use 0.05 mL in the left eye one time only for 1 dose. Lancets (ACCU-CHEK MULTICLIX LANCET) lancets 1 Each as directed. daily. Use as instructed. Dx 250.00 No insulin ibuprofen (MOTRIN) 400 mg tablet Take 1 tablet by mouth twice daily as needed for Pain. docusate sodium (COLACE) 100 mg capsule Take 100 mg by mouth twice daily. psyllium seed/sucrose(METAMUCIL SMOOTH TEXTURE 28 % PACKET) twicw daily CALCIUM 600 + D 600 MG-125 UNIT TAB Take one(1) tablet two(2) times daily. No current facility-administered medications on file prior to visit. Social History Social History Tobacco Use Smoking status: Never Smokeless tobacco: Never Substance Use Topics Alcohol use: No Drug use: No Review of Symptoms REVIEW OF SYSTEMS See HPI EXAM: BP 134/66 Pulse 98 Resp 16 Wt 65 kg (143 lb 3.2 oz) SpO2 99% BMI 23.83 kg/m General Appearance: Well appearing, alert, in no acute distress, well-hydrated, well nourished.. Skin: Skin color, texture, turgor normal, no suspicious rashes or lesions. Pale appearing with pallor of eyelids and gums. Neck: Supple, no adenopathy; thyroid symmetric, normal size, no bruits. Lungs: Lungs clear to auscultation. No wheezing, rhonchi, rales.. Heart: RRR with 3/6 MADHAV best heard at RUSB without thrill. Abdomen: Normal abdominal exam, Abdomen soft, non-tender. Bowel sounds normal. No masses, organomegaly. Extremities: No deformities, edema, skin discoloration, clubbing or cyanosis. Good capillary refill. . Lymph Nodes: No cervical lymphadenopathy, No supraclavicular lymphadenopathy, No axillary lymphadenopathy., and No inguinal lymphadenopathy.. Health Maintenance List Depression Screening Never done Anxiety Screening Never done Advance Directive Discussion Never done Diabetic Foot Exam due on 05/25/2024 HbA1C due on 05/31/2024 Covid-19 Vaccine( season) due on 05/31/2024 DTaP,Tdap,Td Vaccine(3 - Td or Tdap) due on 06/15/2024 Dilated Retinal Exam due on 10/24/2024 LDL Cholesterol due on 11/30/2024 Annual PCP Team Chronic Disease Visit due on 11/30/2024 BP Controlled (<130/80) due on 11/30/2024 Urine Albumin:Creatinine Ratio due on 12/02/2024 Bone Density Screening Completed Influenza Vaccine Completed RSV Vaccine Completed Hepatitis C Screening Completed Shingrix Vaccine Completed Pneumococcal Vaccine: 50+ Completed Mammogram Screening Discontinued Colorectal Cancer Screening Discontinued Data reviewed Latest Ref Rng 12/01/2023 12/03/2023 WBC 3.70 - 11.00 k/uL 9.84 RBC 3.90 - 5.20 m/uL 4.07 Hemoglobin 11.5 - 15.5 g/dL 11.7 Hematocrit 36.0 - 46.0 % 36.5 MCV 80.0 - 100.0 fL 89.7 MCH 26.0 - 34.0 pg 28.7 MCHC 30.5 - 36.0 g/dL 32.1 RDW-CV 11.5 - 15.0 % 12.9 Platelet Count 150 - 400 k/uL 406 (H) MPV 9.0 - 12.7 fL 10.7 Neut% % 63.1 Abs Neut (ANC) 1.45 - 7.50 k/uL 6.20 Lymph% % 25.2 Abs Lymph 1.00 - 4.00 k/uL 2.48 Bledsoe% % 8.9 Abs Bledsoe <0.87 k/uL 0.88 (H) Eosin% % 1.4 Abs Eosin <0.46 k/uL 0.14 Baso% % 1.1 Abs Baso <0.11 k/uL 0.11 (H) Immature Gran % % 0.3 IMMATURE GRANS (ABS) <0.10 k/uL 0.03 NRBC /100 WBC 0.0 Absolute nRBC <0.01 k/uL <0.01 DTYPE Auto Protein, Total 6.3 - 8.0 g/dL 7.5 Albumin 3.9 - 4.9 g/dL 4.4 Calcium 8.5 - 10.2 mg/dL 10.3 (H) Bilirubin, Total 0.2 - 1.3 mg/dL 0.4 Alkaline Phosphatase 34 - 123 U/L 72 AST 13 - 35 U/L 20 ALT 7 - 38 U/L 11 Glucose 74 - 99 mg/dL 77 BUN 7 - 21 mg/dL 32 (H) Creatinine 0.58 - 0.96 mg/dL 0.83 Sodium 136 - 144 mmol/L 140 Potassium 3.7 - 5.1 mmol/L 3.9 Chloride 98 - 107 mmol/L 101 CO2 22 - 30 mmol/L 28 Anion Gap 8 - 15 mmol/L 11 eGFR >=60 mL/min/1.73m 72 Total Cholesterol, Nonfasting <200 mg/dL 162 Triglycerides, Nonfasting <150 mg/dL 105 HDL Cholesterol, Nonfasting >39 mg/dL 72 LDL Cholesterol, Nonfasting <100 mg/dL 69 Non HDL Cholesterol, Nonfasting <130 mg/dL 90 VLDL Cholesterol, Nonfasting <30 mg/dL 21 Total Chol/HDL Ratio, Nonfasting <5.10 mg/dL 2.25 LDL/HDL Ratio, Nonfasting <2.54 mg/dL 0.96 Creatinine, Ur Random (UCRR) 20.0 - 300.0 mg/dL 27.8 Albumin, Urine Random mg/L <12.0 Albumin/Creat Ratio -- Hemoglobin A1C 4.3 - 5.6 % 6.1 (H) Estimated Average Glucose mg/dL 128 Legend: (H) High EKG: NSR at 88 bpm, possible left atrial enlargement, nonspecific T wave abnormality, abnormal EKG.No change compared to 2020. ASSESSMENT/PLAN: 1. Fatigue, unspecified type - ICD9: 780.79, ICD10: R53.83 (primary diagnosis) Unknown etiology. UA negative for infection. EKG unchanged. Obtain labs and imaging as ordered. Discussed eating 3 meals per day. Red flags for re- assessment reviewed with patient in detail. - UA DIP, URINE (POC) - COMPLETE BLOOD COUNT AND DIFFERENTIAL - COMPREHENSIVE METABOLIC PANEL - VITAMIN D 25 HYDROXY - VITAMIN B12 - XR CHEST 2V FRONTAL/LAT - THYROID STIMULATING HORMONE - ECG COMPLETE - XR CHEST 2V FRONTAL/LAT 2. Loss of appetite - ICD9: 783.0, ICD10: R63.0 See abov3. - UA DIP, URINE (POC) - COMPLETE BLOOD COUNT AND DIFFERENTIAL - COMPREHENSIVE METABOLIC PANEL - VITAMIN D 25 HYDROXY - VITAMIN B12 - XR CHEST 2V FRONTAL/LAT - THYROID STIMULATING HORMONE - XR CHEST 2V FRONTAL/LAT 3. Unintentional weight loss - ICD9: 783.21, ICD10: R63.4 See above. - UA DIP, URINE (POC) - COMPLETE BLOOD COUNT AND DIFFERENTIAL - COMPREHENSIVE METABOLIC PANEL - VITAMIN D 25 HYDROXY - VITAMIN B12 - XR CHEST 2V FRONTAL/LAT - THYROID STIMULATING HORMONE - XR CHEST 2V FRONTAL/LAT 4. Pallor - ICD9: 782.61, ICD10: R23.1 See above. - IMMUNOCHEMICAL FECAL OCCULT BLOOD TEST 5. Aortic ejection murmur - ICD9: 424.1, ICD10: I35.1 Worsening murmur on exam. Recheck echo and will call with results. - ECHO - PERFLUTREN LIPID MICROSPHERES 1.1 MG/ML INJECTION IN NS 10 ML - SODIUM CHLORIDE 0.9 % (FLUSH) INJECTION SYRINGE 6. Disorder of bone, unspecified - ICD9: 733.90, ICD10: M89.9 - VITAMIN D 25 HYDROXY I spent a total of 40 minutes on the date of the service which included preparing to see the patient, [id number] patient care, completing clinical documentation, obtaining and/or reviewing separately obtained history, performing a medically appropriate examination, counseling and educating the pat ient/family/caregiver, and ordering medications, tests, or procedures. Deonte Hamm MD [facility] Telephone encounter Note * Telephone Encounter - Candace Murphy - 04/13/2024 1:53 PM EST Prescription Refill Information The patient has been identified by name and date of : Yes Caregiver verified no other encounters exist for this prescription request: Yes Caregiver confirmed with patient/requestor that no other refills are due, in the near future, with this provider at this time: Yes The last office visit in the department: 12-01-23 Does the patient have a future office visit with this provider/department: Yes Requested Prescriptions Pending Prescriptions Disp Refills blood sugar diagnostic (ACCU-CHEK FAISAL) test strip 100 Strip 3 Sig: Test blood sugar(s) one time daily. Dx: E11.9. Insulin: No Candace Sidhu April 13, 2024 1:[address] [facility]03-06-2025 Miscellaneous Notes* Telephone Encounter - Candace Murphy - 04/13/2024 1:53 PM EST Prescription Refill Information The patient has been identified by name and date of : Yes Caregiver verified no other encounters exist for this prescription request: Yes Caregiver confirmed with patient/requestor that no other refills are due, in the near future, with this provider at this time: Yes The last office visit in the department: 12-01-23 Does the patient have a future office visit with this provider/department: Yes Requested Prescriptions Pending Prescriptions Disp Refills blood sugar diagnostic (ACCU-CHEK FAISAL) test strip 100 Strip 3 Sig: Test blood sugar(s) one time daily. Dx: E11.9. Insulin: No Candace Sidhu April 13, 2024 1:54 PM documented in [facility] encounterSt[facility] Telephone encounter Note * Telephone Encounter - Tonya Mejia - 01/17/2024 1:46 PM EST Patient has been identified by name and date of : Yes, Patient phones for refill(s): Requested Prescriptions Pending Prescriptions Disp Refills albuterol HFA (VENTOLIN HFA) 90 mcg/actuation inhaler 18 g 2 Sig: Inhale 2 Puffs as instructed every 4 hours as needed for wheezing/shortness of breath. hydroCHLOROthiazide 12.5 mg capsule 90 capsule 1 Sig: Take 1 capsule by mouth once daily. losartan (COZAAR) 100 mg tablet 90 tablet 1 Sig: Take 1 tablet by mouth once daily. amLODIPine (NORVASC) 10 mg tablet 90 tablet 1 Sig: Take 1 tablet by mouth once daily. metFORMIN (GLUCOPHAGE) 500 mg tablet 360 tablet 1 Sig: Take 2 tablets by mouth two times a day with meals. . atorvastatin (LIPITOR) 20 mg tablet 90 tablet 1 Sig: Take 1 tablet by mouth daily at bedtime. For cholesterol. Date of last office visit in primary care: 12/01/2023 Date of next office visit in primary care: 05/31/2024 Chema Judd Please advise. Thank you. Tonya Mejia. [facility]12-09-2024 Miscellaneous Notes* Telephone Encounter - Tonya Mejia - 01/17/2024 1:46 PM EST Patient has been identified by name and date of : Yes, Patient phones for refill(s): Requested Prescriptions Pending Prescriptions Disp Refills albuterol HFA (VENTOLIN HFA) 90 mcg/actuation inhaler 18 g 2 Sig: Inhale 2 Puffs as instructed every 4 hours as needed for wheezing/shortness of breath. hydroCHLOROthiazide 12.5 mg capsule 90 capsule 1 Sig: Take 1 capsule by mouth once daily. losartan (COZAAR) 100 mg tablet 90 tablet 1 Sig: Take 1 tablet by mouth once daily. amLODIPine (NORVASC) 10 mg tablet 90 tablet 1 Sig: Take 1 tablet by mouth once daily. metFORMIN (GLUCOPHAGE) 500 mg tablet 360 tablet 1 Sig: Take 2 tablets by mouth two times a day with meals. . atorvastatin (LIPITOR) 20 mg tablet 90 tablet 1 Sig: Take 1 tablet by mouth daily at bedtime. For cholesterol. Date of last office visit in primary care: 12/01/2023 Date of next office visit in primary care: 05/31/2024 Chema Judd Please advise. Thank you. Tonya Mejia. documented in this encounterSt. [facility]10-[facility] NoteHNO ID: [id number] Author: DEONTE HAMM MD Service: ? Author Type: Physician Type: Progress Notes Filed: 12/06/2023 09:40 Note Text: Chief Complaint Patient presents with: Follow Up: 6 month HPI Monisha Fitzpatrick is a 78 year old female who presents here today for Above Complaints. DIABETES MELLITUS: Ms. Fitzpatrick was last seen 6 months ago. Since our last visit she denies excessive thirst or increased frequency of urination, numbness, tingling or pain in extremities, new or unusual visual symptoms, and low sugar/hypoglycemic reactions. Follows a diabetic diet most of the time. She is compliant with medication(s) and is tolerating med(s) without any side effects. She reports checking her glucose on a once a day schedule with sugars in the fasting <120 range. Patient's last HgA1C was Hemoglobin A1C (%) Date Value 05/26/2023 6.2 11/25/2022 6.2 10/11/2020 6.7 04/16/2020 6.6 ) Last Ophthalmology exam was within the past 1 month. Received records from [facility] with stable edema in both eyes. Will continue Eylea for left eye for 10 weeks. Last Podiatry exam was within the past 12 months BP well controlled today on current regimen without lightheadedness/dizziness. BP at home at typically similar to today's reading. Up to date on flu vaccine. Requesting COVID vaccine today. Past medical history, appointments, medications, allergies reviewed. Previous Medical History PAST MEDICAL HISTORY Diagnosis Date Aortic ejection murmur 04/06/2014 Arthritis of both knees 01/14/2017 Diabetes mellitus with macular edema, both eyes (HCC) 02/23/2013 Dr. Oliva, Dr. CorreaCvuv-Wowvxz-jogee Esophageal reflux External hemorrhoids without mention of complication Hearing aid worn Hyperlipidemia LDL goal <100 11/22/2015 Internal hemorrhoids without mention of complication Laryngospasm epi pen 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) 02/23/2013 PMH - PAST MEDICAL HISTORY OF change in bowel habits PMH - PAST MEDICAL HISTORY OF breathing shut down of and on Renal cyst 12/25/2015 right renal cyst Retinal edema 01/23/2014 Left eye - See scanned documents Retinal hemorrhage 07/19/2010 Unspecified constipation Unspecified essential hypertension Vasomotor rhinitis 04/06/2014 Venous (peripheral) insufficiency 08/13/2011 White coat hypertension 05/01/2013 Previous Surgical History PAST SURGICAL HISTORY Procedure Laterality Date CATARACT EXTRACTION HX Bilateral 10/2018, 09/2020 COLONOSCOPY FLX DX W/COLLJ SPEC WHEN PFRMD 08/21/2005 Repeat in FNA WITH IMAGING Right 12/06/2015 U/S FNA right groin PAST SURGICAL HISTORY OF CHILD TONSILS PAST SURGICAL HISTORY OF Left laser surgery to left eye SCREENING COLONSCOPY NOT HIGH RISK 02/2016 normal Family History FAMILY HISTORY Problem Relation Age of Onset other (gallbladder problems) Mother ulcers/stomach problems Emphysema Father ulcers Coronary Artery Disease Father Diabetes Paternal Grandmother Diabetes Paternal Aunt Diabetes Paternal Uncle Diabetes Maternal Uncle Patient Allergies ALLERGIES Allergen Reactions Lisinopril Swelling angioedema Doxycycline GI Upset Nausea w/o vomiting, bad taste Penicillin G Prednisone JITTERY Sulfa (Sulfonamide * Current Medications Current Outpatient Medications on File Prior to Visit Medication Sig amLODIPine (NORVASC) 10 mg tablet Take 1 tablet by mouth once daily. metFORMIN (GLUCOPHAGE) 500 mg tablet Take 2 tablets by mouth two times a day with meals. . losartan (COZAAR) 100 mg tablet Take 1 tablet by mouth once daily. hydroCHLOROthiazide 12.5 mg capsule Take 1 capsule by mouth once daily. atorvastatin (LIPITOR) 20 mg tablet Take 1 tablet by mouth daily at bedtime. For cholesterol. EPINEPHrine (EPIPEN) 0.3 mg/0.3 mL auto-injector 0.3 ml subcutaneously as needed for hypersensitivity reaction fluticasone (FLONASE) 50 mcg/actuation nasal spray Use 2 Sprays in each nostril once daily. ONE TO TWO SPRAYS TO EACH NOSTRIL ONCE DAILY blood sugar diagnostic (ACCU-CHEK FAISAL) test strip Test blood sugar(s) one time daily. Dx: E11.9. Insulin: No albuterol HFA (VENTOLIN HFA) 90 mcg/actuation inhaler Inhale 2 Puffs as instructed every 4 hours as needed for wheezing/shortness of breath. Lancing Device with Lancets (ACCU-CHEK FASTCLIX LANCING DEV) 1 Each as directed. Use as directed. DX: E11.9, Insulin: No Lancets (ACCU-CHEK MULTICLIX LANCET) lancets 1 Each as directed. daily. Use as instructed. Dx 250.00 No insulin ibuprofen (MOTRIN) 400 mg tablet Take 1 tablet by mouth twice daily as needed for Pain. docusate sodium (COLACE) 100 mg capsule Take 100 mg by mouth twice daily. psyllium seed/sucrose(METAMUCIL SMOOTH TEXTURE 28 % PACKET) twicw daily CALCIUM 600 + D 600 MG-125 UNIT TAB Take one(1) tablet two(2) times daily. aflibercept opthalmic intravitreal (EYLEA) 2 mg/0.05 mL soln Use 0.05 mL in (more content not included)...[facility]10-23-[facility] History of Present illness Narrative* Deonte Hamm MD - 12/01/2023 10:00 AM EDT Chief Complaint Patient presents with: Follow Up: 6 month HPI Monisha Fitzpatrick is a 78 year old female who presents here today for Above Complaints. DIABETES MELLITUS: Ms. Fitzpatrick was last seen 6 months ago. Since our last visit she denies excessivethirst or increased frequency of urination, numbness, tingling or pain in extremities, new or unusual visual symptoms, and low sugar/hypoglycemic reactions. Follows a diabetic diet most of the time. She is compliant with medication(s) and is tolerating med(s) without any side effects. She reports checking her glucose on a once a day schedule with sugars in the fasting <120 range. Patient's last HgA1C was Hemoglobin A1C (%) Date Value 05/26/2023 6.2 11/25/2022 6.2 10/11/2020 6.7 04/16/2020 6.6 ) Last Ophthalmology exam was within the past 1 month. Received records from [facility] with stable edema in both eyes. Will continue Eylea for left eye for 10 weeks. Last Podiatry exam was within the past 12 months BP well controlled today on current regimen without lightheadedness/dizziness. BP at home at typically similar to today's reading. Up to date on flu vaccine. Requesting COVID vaccine today. Past medical history, appointments, medications, allergies reviewed. Previous Medical History PAST MEDICAL HISTORY Diagnosis Date Aortic ejection murmur 04/06/2014 Arthritis of both knees 01/14/2017 Diabetes mellitus with macular edema, both eyes (HCC) 02/23/2013 Dr. Oliva, Dr. RoseHzem-Qtwixa-txjvt Esophageal reflux External hemorrhoids without mention of complication Hearing aid worn Hyperlipidemia LDL goal <100 11/22/2015 Internal hemorrhoids without mention of complication Laryngospasm epi pen Nonproliferative diabetic retinopathy of both eyes ([facility]) 02/23/2013 PMH - PAST MEDICAL HISTORY OF change in bowel habits PMH - PAST MEDICAL HISTORY OF breathing shut down of and on Renal cyst 12/25/2015 right renal cyst Retinal edema 01/23/2014 Left eye - See scanned documents Retinal hemorrhage 07/19/2010 Unspecified constipation Unspecified essential hypertension Vasomotor rhinitis 04/06/2014 Venous (peripheral) insufficiency 08/13/2011 White coat hypertension 05/01/2013 Previous Surgical History PAST SURGICAL HISTORY Procedure Laterality Date CATARACT EXTRACTION HX Bilateral 10/2018, 09/2020 COLONOSCOPY FLX DX W/COLLJ SPEC WHEN PFRMD 08/21/2005 Repeat in FNA WITH IMAGING Right 12/06/2015 U/S FNA right groin PAST SURGICAL HISTORY OF CHILD TONSILS PAST SURGICAL HISTORY OF Left laser surgery to left eye SCREENING COLONSCOPY NOT HIGH RISK 02/2016 normal Family History FAMILY HISTORY Problem Relation Age of Onset other (gallbladder problems) Mother ulcers/stomach problems Emphysema Father ulcers Coronary Artery Disease Father Diabetes Paternal Grandmother Diabetes Paternal Aunt Diabetes Paternal Uncle Diabetes Maternal Uncle Patient Allergies ALLERGIES Allergen Reactions Lisinopril Swelling angioedema Doxycycline GI Upset Nausea w/o vomiting, bad taste Penicillin G Prednisone JITTERY Sulfa (Sulfonamide * Current Medications Current Outpatient Medications on File Prior to Visit Medication Sig amLODIPine (NORVASC) 10 mg tablet Take 1 tablet by mouth once daily. metFORMIN (GLUCOPHAGE) 500 mg tablet Take 2 tablets by mouth two times a day with meals. . losartan (COZAAR) 100 mg tablet Take 1 tablet by mouth once daily. hydroCHLOROthiazide 12.5 mg capsule Take 1 capsule by mouth once daily. atorvastatin (LIPITOR) 20 mg tablet Take 1 tablet by mouth daily at bedtime. For cholesterol. EPINEPHrine (EPIPEN) 0.3 mg/0.3 mL auto-injector 0.3 ml subcutaneously as needed for hypersensitivity reaction fluticasone (FLONASE) 50 mcg/actuation nasal spray Use 2 Sprays in each nostril once daily. ONE TO TWO SPRAYS TO EACH NOSTRIL ONCE DAILY blood sugar diagnostic (ACCU-CHEK FAISAL) test strip Test blood sugar(s) one time daily. Dx: E11.9. Insulin: No albuterol HFA (VENTOLIN HFA) 90 mcg/actuation inhaler Inhale 2 Puffs as instructed every 4 hours asneeded for wheezing/shortness of breath. Lancing Device with Lancets (ACCU-CHEK FASTCLIX LANCING DEV) 1 Each as directed. Use as directed. DX: E11.9, Insulin: No Lancets (ACCU-CHEK MULTICLIX LANCET) lancets 1 Each as directed. daily. Use as instructed. Dx 250.00 No insulin ibuprofen (MOTRIN) 400 mg tablet Take 1 tablet by mouth twice daily as needed for Pain. docusate sodium (COLACE) 100 mg capsule Take 100 mg by mouth twice daily. psyllium seed/sucrose(METAMUCIL SMOOTH TEXTURE 28 % PACKET) twicw daily CALCIUM 600 + D 600 MG-125 UNIT TAB Take one(1) tablet two(2) times daily. aflibercept opthalmic intravitreal (EYLEA) 2 mg/0.05 mL soln Use 0.05 mL in the left eye one time only for 1 dose. No current facility-administered medications on file prior to visit. Social History Social History Tobacco Use Smoking status: Never Smokeless tobacco: Never Substance Use Topics Alcohol use: No Drug use: No Review of Symptoms REVIEW OF SYSTEMS GENERAL: No weight loss, malaise or fevers RESPIRATORY: Negative for cough, hemoptysis, wheezing, COPD, dyspnea or shortness of breath CARDIOVASCULAR: Negative for chest pain, leg swelling, hypertension, CHF or palpitations GI: No nausea, vomiting, or diarrhea SKIN: Negative for lesions, rash, and itching EXAM: BP 128/70 Pulse 97 Resp 16 Wt 68.5 kg (151 lb) SpO2 97% BMI 25.13 kg/m General Appearance: Well appearing, alert, in no acute distress, well-hydrated, well nourished.. Skin: Skin color, texture, turgor normal, no suspicious rashes or lesions. Lungs: Lungs clear to auscultation. No wheezing, rhonchi, rales.. Heart: RRR with 2/6 MADHAV best heard at RUSB. Abdomen: Normal abdominal exam, Abdomen soft, non-tender. Bowel sounds normal. No masses, organomegaly. Extremities: No deformities, edema, skin discoloration, clubbing or cyanosis. Good capillary refill. . Health Maintenance List Depression Screening Never done Anxiety Screening Never done BP Controlled (<130/80) Never done Advance Directive Discussion Never done Urine Albumin:Creatinine Ratio due on 07/03/2023 Covid-19 Vaccine() due on 10/10/2023 HbA1C due on 11/25/2023 LDL Cholesterol due on 11/26/2023 Diabetic Foot Exam due on 05/25/2024 Annual PCP Team Chronic Disease Visit due on 05/25/2024 DTaP,Tdap,Td Vaccine(3 - Td or Tdap) due on 06/15/2024 Dilated Retinal Exam due on 06/21/2024 Bone Density Screening Completed Influenza Vaccine Completed RSV Vaccine Completed Hepatitis C Screening Completed Shingrix Vaccine Completed Pneumococcal Vaccine: 65+ Completed Mammogram Screening Discontinued Colorectal Cancer Screening Discontinued Data reviewed Latest Ref Rng 11/25/2022 05/26/2023 06/28/2023 Protein, Total 6.3 - 8.0 g/dL 7.6 7.7 7.0 Albumin 3.9 - 4.9 g/dL 4.1 4.2 4.0 Calcium 8.5 - 10.2 mg/dL 10.2 10.6 (H) 10.1 Bilirubin, Total 0.2 - 1.3 mg/dL 0.4 0.3 0.2 Alkaline Phosphatase 34 - 123 U/L 79 76 69 AST 13 - 35 U/L 19 18 22 ALT 7 - 38 U/L 13 11 13 Glucose 74 - 99 mg/dL 87 93 142 (H) BUN 7 - 21 mg/dL 25 (H) 27 (H) 31 (H) Creatinine 0.58 - 0.96 mg/dL 0.70 0.72 0.84 Sodium 136 - 144 mmol/L 141 138 139 Potassium 3.7 - 5.1 mmol/L 4.1 3.8 4.4 Chloride 97 - 105 mmol/L 101 98 99 CO2 22 - 30 mmol/L 27 27 25 Anion Gap 9 - 18 mmol/L 13 13 15 eGFR >=60 mL/min/1.73m 89 86 72 Total Cholesterol, Nonfasting <200 mg/dL 155 Triglycerides, Nonfasting <150 mg/dL 101 HDL Cholesterol, Nonfasting >39 mg/dL 65 LDL Cholesterol, Nonfasting <100 mg/dL 70 Non HDL Cholesterol, Nonfasting <130 mg/dL 90 VLDL Cholesterol, Nonfasting <30 mg/dL 20 Total Chol/HDL Ratio, Nonfasting <5.10 mg/dL 2.38 LDL/HDL Ratio, Nonfasting <2.54 mg/dL 1.08 Hemoglobin A1C 4.3 - 5.6 % 6.2 (H) 6.2 (H) Estimated Average Glucose mg/dL 131 131 Legend: (H) High ASSESSMENT/PLAN: 1. Diabetes mellitus with macular edema, both eyes (HCC) - ICD9: 250.50, 362.07, ICD10: E11.311 (primary diagnosis) - Control undetermined, due for labs - Continue current medications - Statin prescribed - atorvastatin - Blood glucose monitoring on a once daily schedule - Counseled on healthy diet and regular exercise - Discussed need for and benefit of weight loss. BMI 25.13 kg/(m^2) - Discussed diabetic education issues of diabetes complications and monitoring required, hypoglycemic/hyperglycemic symptoms, and medication-specific side effects and monitoring - Follow up in 6 months, sooner should any other issues arise. - COMPLETE BLOOD COUNT AND DIFFERENTIAL - COMPREHENSIVE METABOLIC PANEL - ALBUMIN/CREATININE RATIO, URINE - HEMOGLOBIN A1C - LIPID PANEL, NONFASTING 2. Nonproliferative diabetic retinopathy of both eyes (FORMERLY [facility]) - ICD9: 250.50, 362.03, ICD10: E11.3293 Recent exam stable. F/u with optho for retinopathy and edema. 3. Hyperlipidemia associated with type 2 diabetes mellitus (HCC) (FORM[facility]) - ICD9: 250.80, 272.4, ICD10: E11.69, E78.5 - Control undetermined, due for labs - Continue current medications - Counseled on healthy diet and regular exercise 4. Essential hypertension, benign - ICD9: 401.1, ICD10: I10 - Controlled - Continue current medications - Recommend home blood pressure monitoring, to bring results to next visit - Encouraged sodium restriction, DASH or Mediterranean diet - Recommend regular aerobic exercise 5. Aortic ejection murmur - ICD9: 424.1, ICD10: I35.1 Stable murmur. Echo in 2020 unremarkable. Asymptomatic. Will monitor. 6. Encounter for immunization - ICD9: V03.89, ICD10: Z23 - Xola-Nephera COVID-19 VACCINE AGE 12+ YR (COMIRNATY) Deonte Hamm MD documented [facility] Telephone encounter Note * Telephone Encounter - Yumiko Vaz MA - 10/26/2023 8:57 AM EDT Pt notified. She will think about it and call back. Yumiko Vaz MA [facility] Miscellaneous Notes* Telephone Encounter - Yumiko Vaz MA - 10/26/2023 8:57 AM EDT Pt notified. She will think about it and call back. Yumiko Vaz MA * Telephone Encounter - Em Sommer LPN - 10/25/2023 9:31 AM EDT Patient telephoned. Message left to call office back for update. Em Sommer LPN * Telephone Encounter - Deonte Hamm MD - 10/23/2023 7:53 AM EDT We typically stop breast cancer screening at age 75, but if she would like to continue, will place order. * Telephone Encounter - Nika Rodriguez RN - 10/22/2023 2:00 PM EDT Patient requesting PCP place order for yearly mammogram screening, if it is advised for her. Please call patient with update. Thank you. documented in this encounterSt[facility]09-[facility]24 Telephone encounter Note * Telephone Encounter - Em Sommer LPN - 10/25/2023 9:31 AM EDT Patient telephoned. Message left to call office back for update. Em Sommer LPN [facility] Telephone encounter Note* Telephone Encounter - Deonte Hamm MD - 10/23/2023 7:53 AM EDT We typically stop breast cancer screening at age 75, but if she would like to continue, will place order. [facility] Telephone encounter Note* Telephone Encounter - Nika Rodriguez RN - 10/22/2023 2:00 PM EDT Patient requesting PCP place order for yearly mammogram screening, if it is advised for her. Please call patient with update. Thank you. [facility] Telephone encounter Note* Telephone Encounter - Luan SidhuIndiaQuyen M - 07/15/2023 10:45 AM EDT Patient has been identified by name and date of : Yes, Provider Dr. Hamm Date 07-15-23 Time10:47a Patient phones for refill(s): Requested Prescriptions Pending Prescriptions Disp Refills amLODIPine (NORVASC) 10 mg tablet 90 tablet 1 Sig: Take 1 tablet by mouth once daily. metFORMIN (GLUCOPHAGE) 500 mg tablet 360 tablet 1 Sig: Take 2 tablets by mouth two times a day with meals. . losartan (COZAAR) 100 mg tablet 90 tablet 1 Sig: Take 1 tablet by mouth once daily. hydroCHLOROthiazide 12.5 mg capsule 90 capsule 1 Sig: Take 1 capsule by mouth once daily. atorvastatin (LIPITOR) 20 mg tablet 90 tablet 1 Sig: Take 1 tablet by mouth daily at bedtime. For cholesterol. EPINEPHrine (EPIPEN) 0.3 mg/0.3 mL auto-injector 2 Each 1 Si.3 ml subcutaneously as needed for hypersensitivity reaction Date of last office visit in primary care: 05/26/2023 Date of next office visit in primary care: 12/01/2023 Please advise. Thank you. Quyen Sidhu. [facility] Miscellaneous Notes* Telephone Encounter - Quyen Frye - 07/15/2023 10:45 AM EDT Patient has been identified by name and date of : Yes, Provider Dr. Hamm Date 07-15-23 Time10:47a Patient phones for refill(s): Requested Prescriptions Pending Prescriptions Disp Refills amLODIPine (NORVASC) 10 mg tablet 90 tablet 1 Sig: Take 1 tablet by mouth once daily. metFORMIN (GLUCOPHAGE) 500 mg tablet 360 tablet 1 Sig: Take 2 tablets by mouth two times a day with meals. . losartan (COZAAR) 100 mg tablet 90 tablet 1 Sig: Take 1 tablet by mouth once daily. hydroCHLOROthiazide 12.5 mg capsule 90 capsule 1 Sig: Take 1 capsule by mouth once daily. atorvastatin (LIPITOR) 20 mg tablet 90 tablet 1 Sig: Take 1 tablet by mouth daily at bedtime. For cholesterol. EPINEPHrine (EPIPEN) 0.3 mg/0.3 mL auto-injector 2 Each 1 Si.3 ml subcutaneously as needed for hypersensitivity reaction Date of last office visit in primary care: 05/26/2023 Date of next office visit in primary care: 12/01/2023 Please advise. Thank you. Quyen Sidhu. documented in [facility] encounter[facility] Telephone encounter Note * Telephone Encounter - Tonya Shine APRN.CNP - 06/29/2023 8:59 AM EDT No need to stop calcium. Tonya Shine APRN.CNP [facility] Miscellaneous Notes* Telephone Encounter - Tonya Shine APRN.CNP - 06/29/2023 8:59 AM EDT No need to stop calcium. Tonya Shine APRN.CNP * Telephone Encounter - Sol Veras RN - 06/29/2023 8:50 AM EDT Pt notified. Pt states she takes Caltrate 2 times per day. It has Calcium 600 mg with Vitamin D3 20mcg. States she has been on that for years-appears per [facility] at least since 2005. Should she change anything with that? Call pt back only if she is to change the dosing. If no changes, pt does not need a call back. * Telephone Encounter - Sol Veras RN - 06/29/2023 8:49 AM EDT ----- Message from Tonya Shine APRN.CNP sent at 06/29/2023 8:42 AM EDT ----- Calcium level in normal range. Tonya Shine APRN.CNP documented in this encounterSt. [facility]05-[facility]24 Telephone encounter Note * Telephone Encounter - Sol Veras RN - 06/29/2023 8:50 AM EDT Pt notified. Pt states she takes Caltrate 2 times per day. It has Calcium 600 mg with Vitamin D3 20mcg. States she has been on that for years-appears per [facility] at least since 2005. Should she change anything with that? Call pt back only if she is to change the dosing. If no changes, pt does not need a call back. [facility] Tele[facility] encounter Note* Telephone Encounter - Sol Veras RN - 06/29/2023 8:49 AM EDT ----- Message from Tonya Shine APRN.CARD DOFFER sent at 06/29/2023 8:42 AM EDT ----- Calcium level in normal range. Tonya Shine APRN.CNP [facility]04-19[facility] Miscellaneous Notes* Telephone Encounter - Em Sommer LPN - 05/28/2023 12:18 PM EDT Patient notified of results and recommendations below. Voices understanding. Em Sommre LPN * Telephone Encounter - Tonya Shine APRN.CNP - 05/28/2023 7:06 AM EDT Calcium mildly elevated. Recommend recheck in one month. A1c 6.2%- same as last check. The rest of her labs are in acceptable ranges. Tonya Shine APRN.CNP documented in this encounterSt[facility]04-[facility] History of Present illness Narrative* Tonya Shine APRN.CNP - 05/26/2023 9:40 AM EDT 05/26/2023 Patient presents with: F/U 6 Month SUBJECTIVE: This is a 77 year old that is here today for Above Complaints. Since last office visit has been in good health without ER visits or hospitalizations. DIABETES MELLITUS:Since our last visit she denies excessive thirst or increased frequency of urination, chest pain or dyspnea , numbness, tingling or pain in extremities, new or unusual visual symptoms, low sugar/hypoglycemic reactions, weight loss/gain, lightheadedness/dizziness, and bowel changes/loose stools. Follows a diabetic diet most of the time. She is compliant with medication(s) and is tolerating med(s) without any side effects. She reports checking her glucose on a once a day schedule with sugars in the fasting less than 130 range. Patient's last HgA1C was Hemoglobin A1C (%) Date Value 11/25/2022 6.2 05/11/2022 6.1 10/11/2020 6.7 04/16/2020 6.6 ) Last Ophthalmology exam was within the past 6 months Sees opt, Dr. Serra, every 10 weeks for Eylea injections for left eye HTN: Patient is compliant with meds Yes Monitors bp at home: occasionally . Denies side effects: Yes. Chest pain: No. Dyspnea: No. Edema: No. Palpitations: No. Syncope: No. Headache: No. Dizziness: No. PAST MEDICAL HISTORY Diagnosis Date Aortic ejection murmur 04/06/2014 Arthritis of both knees 01/14/2017 Diabetes mellitus with macular edema, both eyes (HCC) 02/23/2013 Dr. Oliva, Dr. RoseMlcx-Nsrxlo-gqbjl Esophageal reflux External hemorrhoids without mention of complication Hearing aid worn Hyperlipidemia LDL goal <100 11/22/2015 Internal hemorrhoids without mention of complication Laryngospasm epi pen 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) 02/23/2013 PMH - PAST MEDICAL HISTORY OF change in bowel habits PMH - PAST MEDICAL HISTORY OF breathing shut down of and on Renal cyst 12/25/2015 right renal cyst Retinal edema 01/23/2014 Left eye - See scanned documents Retinal hemorrhage 07/19/2010 Unspecified constipation Unspecified essential hypertension Vasomotor rhinitis 04/06/2014 Venous (peripheral) insufficiency 08/13/2011 White coat hypertension 05/01/2013 ALLERGIES Lisinopril, Doxycycline, Penicillin G, Prednisone, and Sulfa (Sulfonamide Antibiotics) MEDICATIONS Current Outpatient Medications Medication Sig fluticasone (FLONASE) 50 mcg/actuation nasal spray Use 2 Sprays in each nostril once daily. ONE TO TWO SPRAYS TO EACH NOSTRIL ONCE DAILY blood sugar diagnostic (ACCU-CHEK FAISAL) test strip Test blood sugar(s) one time daily. Dx: E11.9. Insulin: No hydroCHLOROthiazide 12.5 mg capsule Take 1 capsule by mouth once daily. losartan (COZAAR) 100 mg tablet Take 1 tablet by mouth once daily. amLODIPine (NORVASC) 10 mg tablet Take 1 tablet by mouth once daily. metFORMIN (GLUCOPHAGE) 500 mg tablet Take 2 tablets by mouth two times a day with meals. . atorvastatin (LIPITOR) 20 mg tablet Take 1 tablet by mouth daily at bedtime. For cholesterol. albuterol HFA (VENTOLIN HFA) 90 mcg/actuation inhaler Inhale 2 Puffs as instructed every 4 hours asneeded for wheezing/shortness of breath. Lancing Device with Lancets (ACCU-CHEK FASTCLIX LANCING DEV) 1 Each as directed. Use as directed. DX: E11.9, Insulin: No EPINEPHrine (EPIPEN) 0.3 mg/0.3 mL auto-injector 0.3 ml subcutaneously as needed for hypersensitivity reaction aflibercept opthalmic intravitreal (EYLEA) 2 mg/0.05 mL soln Use 0.05 mL in the left eye one time only for 1 dose. Lancets (ACCU-CHEK MULTICLIX LANCET) lancets 1 Each as directed. daily. Use as instructed. Dx 250.00 No insulin ibuprofen (MOTRIN) 400 mg tablet Take 1 tablet by mouth twice daily as needed for Pain. docusate sodium (COLACE) 100 mg capsule Take 100 mg by mouth twice daily. psyllium seed/sucrose(METAMUCIL SMOOTH TEXTURE 28 % PACKET) twicw daily CALCIUM 600 + D 600 MG-125 UNIT TAB Take one(1) tablet two(2) times daily. No current facility-administered medications for this visit. Medications and allergies reviewed by this provider. SOCIAL HISTORY Social History Tobacco Use Smoking status: Never Smokeless tobacco: Never Substance Use Topics Alcohol use: No Drug use: No REVIEW OF SYSTEMS All other reviewed and negative other than HPI. OBJECTIVE: BP 136/74 Pulse 101 Resp 16 Wt 69.1 kg (152 lb 6.4 oz) SpO2 95% BMI 25.36 kg/m . Vital signs reviewed by this provider. APPEARANCE Well appearing, alert, in no acute distress, well-hydrated, well nourished. EYES PERRLA, conjunctiva and sclera normal. HEART RRR with 2/6 MADHAV best heard at RUSB LUNG clear to auscultation. No wheezes, rhonchi or rales EXTREMITIES Extremities normal, No deformities, No skin discoloration, No edema, and Normal pulses bilaterally. SKIN Skin color, texture, turgor normal, no suspicious rashes or lesions DM foot exam: shoes and socks removed, No deformities, ulcers, calluses, normal distal pulses, and sensitive to 10 gm monofilament Latest Ref Rng 11/25/2022 Protein, Total 6.3 - 8.0 g/dL 7.6 Albumin 3.9 - 4.9 g/dL 4.1 Calcium 8.5 - 10.2 mg/dL 10.2 Bilirubin, Total 0.2 - 1.3 mg/dL 0.4 Alkaline Phosphatase 34 - 123 U/L 79 AST 13 - 35 U/L 19 ALT 7 - 38 U/L 13 Glucose 74 - 99 mg/dL 87 BUN 7 - 21 mg/dL 25 (H) Creatinine 0.58 - 0.96 mg/dL 0.70 Sodium 136 - 144 mmol/L 141 Potassium 3.7 - 5.1 mmol/L 4.1 Chloride 97 - 105 mmol/L 101 CO2 22 - 30 mmol/L 27 Anion Gap 9 - 18 mmol/L 13 eGFR >=60 mL/min/1.73m 89 Total Cholesterol, Nonfasting <200 mg/dL 155 Triglycerides, Nonfasting <150 mg/dL 101 HDL Cholesterol, Nonfasting >39 mg/dL 65 LDL Cholesterol, Nonfasting <100 mg/dL 70 Non HDL Cholesterol, Nonfasting <130 mg/dL 90 VLDL Cholesterol, Nonfasting <30 mg/dL 20 Total Chol/HDL Ratio, Nonfasting <5.10 mg/dL 2.38 LDL/HDL Ratio, Nonfasting <2.54 mg/dL 1.08 Hemoglobin A1C 4.3 - 5.6 % 6.2 (H) Estimated Average Glucose mg/dL 131 Legend: (H) High . ASSESSMENT/PLAN: 1. Diabetes mellitus with macular edema, both eyes (HCC) - ICD9: 250.50, 362.07, ICD10: E11.311 (primary diagnosis) - Control undetermined, due for labs - Continue current medications - Statin prescribed - atorvastatin - Follow up in 6 months, sooner should any other issues arise. - COMPREHENSIVE METABOLIC PANEL - HEMOGLOBIN A1C 2. Hyperlipidemia LDL goal <100 - ICD9: 272.4, ICD10: E78.5 - Controlled - Continue current medications - Counseled on healthy diet and regular exercise - Follow up in 6 months, sooner should any other issues arise. 3. Essential hypertension, benign - ICD9: 401.1, ICD10: I10 - Controlled - Continue current medications - Recommend home blood pressure monitoring, to bring results to next visit - Encouraged sodium restriction, DASH or Mediterranean diet - Recommend regular aerobic exercise - Follow up in 6 months for hypertension visit - COMPREHENSIVE METABOLIC PANEL Tonya Shine APRN.RANDALL Prescription instructions reviewed with patient as applicable. Patient advised if symptoms do not improve or if symptoms worsen sooner, to contact their primary care physician. Potential red flag symptoms discussed with the patient. Reviewed appropriate action plan to take if red flag symptoms occur. Patient agreeable to treatment plan. Medical Decision Making: Problems: Moderate: 2+ stable chronic illnesses Data: Unique test(s) ordered: 2 Risk: Moderate: Moderate risk from testing/treatment Medical Decision Making Level: 4 - Moderate documented in this encounterSt[facility]03-[facility] Miscellaneous Notes* Telephone Encounter - Em Esquivel - 05/01/2023 9:50 AM EDT Patient has been identified by name and date of : Yes Patient phones for refill(s): Requested Prescriptions Pending Prescriptions Disp Refills fluticasone (FLONASE) 50 mcg/actuation nasal spray 3 Each 1 Sig: Use 2 Sprays in each nostril once daily. ONE TO TWO SPRAYS TO EACH NOSTRIL ONCE DAILY Date of last office visit in primary care: 11/25/2022 Date of next office visit in primary care: 05/26/2023 Please advise. Thank you. Em Esquivel. documented in this encounterSt. [facility]12-[facility]-2023 Miscellaneous Notes* Telephone Encounter - Felicia Hernandez OCCA - 01/18/2023 2:39 PM EST MAY 11/25/2022 NOV 05/26/2023 * Telephone Encounter - Geraldine Lanier - 01/16/2023 9:45 AM EST Patient has been identified by name and date of : Yes Last office visit in this department: 11/25/2022 RX INSTRUCTIONS: Patient aware RX will be sent to pharmacy. No need to notify patient. Patient phones requesting refills as follows: Requested Prescriptions Pending Prescriptions Disp Refills hydroCHLOROthiazide 12.5 mg capsule 90 capsule 1 Sig: Take 1 capsule by mouth once daily. losartan (COZAAR) 100 mg tablet 90 tablet 1 Sig: Take 1 tablet by mouth once daily. amLODIPine (NORVASC) 10 mg tablet 90 tablet 1 Sig: Take 1 tablet by mouth once daily. metFORMIN (GLUCOPHAGE) 500 mg tablet 360 tablet 1 Sig: Take 2 tablets by mouth two times a day with meals. . atorvastatin (LIPITOR) 20 mg tablet 90 tablet 1 Sig: Take 1 tablet by mouth daily at bedtime. For cholesterol. Please review and advise. Geraldine Sidhu documented in this encounterSt. [facility]10-18-2023 History of Present illness Narrative* Deonte Hamm MD - 11/25/2022 10:11 AM EDT Chief Complaint Patient presents with: 6 mo DM check up HPI Monisha Fitzpatrick is a 77 year old female who presents here today for Above Complaints.. DIABETES MELLITUS: Ms. Fitzpatrick was last seen 6 months ago. Since our last visit she denies excessivethirst or increased frequency of urination, numbness, tingling or pain in extremities, new or unusual visual symptoms, and low sugar/hypoglycemic reactions. Follows a diabetic diet most of the time. She is compliant with medication(s) and is tolerating med(s) without any side effects. She reports checking her glucose on a once a day schedule with sugars in the fasting <120 range. Patient's last HgA1C was Hemoglobin A1C (%) Date Value 05/11/2022 6.1 11/13/2021 6.4 10/11/2020 6.7 04/16/2020 6.6 ) Last Ophthalmology exam was within the past 3 months. Getting injections from Dr. Rose for macular edema every 10 weeks. Mild retinopathy bilaterally in September. Last Podiatry exam was within the past 12 months BP well controlled on current regimen. 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 Pain improved during the summer. This fall, she has had some pain with movement. No pain with rest. Treating with ibuprofen OTC which helps somewhat. Hearing aids given by Dr. Khan about 2 weeks ago. Still getting used to them. Has f/u appointmentwith their office in about 1-2 weeks. Past medical history, appointments, medications, allergies reviewed. Previous Medical History PAST MEDICAL HISTORY Diagnosis Date Aortic ejection murmur 04/06/2014 Arthritis of both knees 01/14/2017 Diabetes mellitus with macular edema, both eyes ([facility]) 02/23/2013 Dr. Oliva, Dr. StrongQsbnadlv-Imrbaq-pocke Esophageal reflux External hemorrhoids without mention of complication Hyperlipidemia LDL goal <100 11/22/2015 Internal hemorrhoids without mention of complication Laryngospasm epi pen Nonproliferative diabetic retinopathy of both eyes ([facility]) 02/23/2013 PMH - PAST MEDICAL HISTORY OF change in bowel habits PMH - PAST MEDICAL HISTORY OF breathing shut down of and on Renal cyst 12/25/2015 right renal cyst Retinal edema 01/23/2014 Left eye - See scanned documents Retinal hemorrhage 07/19/2010 Unspecified constipation Unspecified essential hypertension Vasomotor rhinitis 04/06/2014 Venous (peripheral) insufficiency 08/13/2011 White coat hypertension 05/01/2013 Previous Surgical History PAST SURGICAL HISTORY Procedure Laterality Date CATARACT EXTRACTION HX Bilateral 10/2018, 09/2020 COLONOSCOPY FLX DX W/COLLJ SPEC WHEN PFRMD 08/21/2005 Repeat in FNA WITH IMAGING Right 12/06/2015 U/S FNA right groin PAST SURGICAL HISTORY OF CHILD TONSILS PAST SURGICAL HISTORY OF Left laser surgery to left eye SCREENING COLONSCOPY NOT HIGH RISK 02/2016 normal Family History FAMILY HISTORY Problem Relation Age of Onset other (gallbladder problems) Mother ulcers/stomach problems Emphysema Father ulcers Coronary Artery Disease Father Diabetes Paternal Grandmother Diabetes Paternal Aunt Diabetes Paternal Uncle Diabetes Maternal Uncle Patient Allergies ALLERGIES Allergen Reactions Lisinopril Swelling angioedema Doxycycline GI Upset Nausea w/o vomiting, bad taste Penicillin G Prednisone JITTERY Sulfa (Sulfonamide * Current Medications Current Outpatient Medications on File Prior to Visit Medication Sig hydroCHLOROthiazide 12.5 mg capsule Take 1 capsule by mouth once daily. losartan (COZAAR) 100 mg tablet Take 1 tablet by mouth once daily. metFORMIN (GLUCOPHAGE) 500 mg tablet Take 2 tablets by mouth twice daily with meals. . atorvastatin (LIPITOR) 20 mg tablet Take 1 tablet by mouth daily at bedtime. For cholesterol. fluticasone (FLONASE) 50 mcg/actuation nasal spray Use 2 Sprays in each nostril once daily. ONE TO TWO SPRAYS TO EACH NOSTRIL ONCE DAILY amLODIPine (NORVASC) 10 mg tablet Take 1 tablet by mouth once daily. blood sugar diagnostic (ACCU-CHEK FAISAL) test strip Test blood sugar(s) one time daily. Dx: E11.9. Insulin: No albuterol HFA (VENTOLIN HFA) 90 mcg/actuation inhaler Inhale 2 Puffs as instructed every 4 hours asneeded for wheezing/shortness of breath. Lancing Device with Lancets (ACCU-CHEK FASTCLIX LANCING DEV) 1 Each as directed. Use as directed. DX: E11.9, Insulin: No EPINEPHrine (EPIPEN) 0.3 mg/0.3 mL auto-injector 0.3 ml subcutaneously as needed for hypersensitivity reaction Lancets (ACCU-CHEK MULTICLIX LANCET) lancets 1 Each as directed. daily. Use as instructed. Dx 250.00 No insulin ibuprofen (MOTRIN) 400 mg tablet Take 1 tablet by mouth twice daily as needed for Pain. docusate sodium (COLACE) 100 mg capsule Take 100 mg by mouth twice daily. psyllium seed/sucrose(METAMUCIL SMOOTH TEXTURE 28 % PACKET) twicw daily CALCIUM 600 + D 600 MG-125 UNIT TAB Take one(1) tablet two(2) times daily. aflibercept opthalmic intravitreal (EYLEA) 2 mg/0.05 mL soln Use 0.05 mL in the left eye one time only for 1 dose. No current facility-administered medications on file prior to visit. Social History Social History Tobacco Use Smoking status: Never Smokeless tobacco: Never Substance Use Topics Alcohol use: No Drug use: No Review of Symptoms REVIEW OF SYSTEMS GENERAL: No weight loss, malaise or fevers RESPIRATORY: Negative for cough, hemoptysis, wheezing, COPD, dyspnea or shortness of breath CARDIOVASCULAR: Negative for chest pain, leg swelling, hypertension, CHF or palpitations GI: No nausea, vomiting, or diarrhea SKIN: Negative for lesions, rash, and itching EXAM: BP 116/64 Pulse 84 Resp 16 Ht 165.1 cm (5' 5) Wt 69.9 kg (154 lb) BMI 25.63 kg/m General Appearance: Well appearing, alert, in no acute distress, well-hydrated, well nourished.. Skin: Skin color, texture, turgor normal, no suspicious rashes or lesions. Lungs: Lungs clear to auscultation. No wheezing, rhonchi, rales.. Heart: RRR with 2/6 MADHAV best heard at RUSB. Abdomen: Normal abdominal exam, Abdomen soft, non-tender. Bowel sounds normal. No masses, organomegaly. Extremities: No deformities, edema, skin discoloration, clubbing or cyanosis. Good capillary refill. . Health Maintenance List BP Controlled (<130/80) Never done Hepatitis B Vaccine(1 of 3 - Risk 3-dose series) Never done RSV Vaccine(1 - 1-dose 60+ series) Never done Advance Directive Discussion Never done Covid-19 Vaccine(2022- season) due on 10/09/2022 HbA1C due on 11/10/2022 Dilated Retinal Exam due on 11/03/2022 LDL Cholesterol due on 11/13/2022 Shingrix Vaccine(3 of 3) due on 11/24/2022 Diabetic Foot Exam due on 05/21/2023 Annual PCP Team Chronic Disease Visit due on 06/04/2023 Urine Albumin:Creatinine Ratio due on 07/03/2023 DTaP,Tdap,Td Vaccine(3 - Td or Tdap) due on 06/15/2024 Bone Density Screening Completed Influenza Vaccine Completed Depression Assessment Completed Hepatitis C Screening Completed Pneumococcal Vaccine: 65+ Completed Mammogram Screening Discontinued Colorectal Cancer Screening Discontinued Data reviewed Component Latest Ref Rng & Units 05/11/2022 07/02/2022 WBC 3.70 - 11.00 k/uL 9.84 RBC 3.90 - 5.20 m/uL 4.28 Hemoglobin 11.5 - 15.5 g/dL 12.4 Hematocrit 36.0 - 46.0 % 38.5 MCV 80.0 - 100.0 fL 90.0 MCH 26.0 - 34.0 pg 29.0 MCHC 30.5 - 36.0 g/dL 32.2 RDW-CV 11.5 - 15.0 % 13.3 Platelet Count 150 - 400 k/uL 422 (H) MPV 9.0 - 12.7 fL 10.7 Neut% % 61.8 Abs Neut (ANC) 1.45 - 7.50 k/uL 6.07 Lymph% % 25.5 Abs Lymph 1.00 - 4.00 k/uL 2.51 Bledsoe% % 9.0 Abs Bledsoe <0.87 k/uL 0.89 (H) Eosin% % 2.3 Abs Eosin <0.46 k/uL 0.23 Baso% % 1.2 Abs Baso <0.11 k/uL 0.12 (H) Immature Gran % % 0.2 IMMATURE GRANS (ABS) <0.10 k/uL <0.03 NRBC /100 WBC 0.0 Absolute nRBC <0.01 k/uL <0.01 DTYPE Auto Protein, Total 6.3 - 8.0 g/dL 7.7 Albumin 3.9 - 4.9 g/dL 4.3 Calcium 8.5 - 10.2 mg/dL 10.0 Bilirubin, Total 0.2 - 1.3 mg/dL 0.4 Alkaline Phosphatase 34 - 123 U/L 77 AST 13 - 35 U/L 19 ALT 7 - 38 U/L 13 Glucose 74 - 99 mg/dL 124 (H) BUN 7 - 21 mg/dL 22 (H) Creatinine 0.58 - 0.96 mg/dL 0.64 Sodium 136 - 144 mmol/L 139 Potassium 3.7 - 5.1 mmol/L 4.1 Chloride 97 - 105 mmol/L 98 CO2 22 - 30 mmol/L 30 Anion Gap 9 - 18 mmol/L 11 eGFR >=60 mL/min/1.73m 92 Creatinine, Ur Random (UCRR) 20.0 - 300.0 mg/dL 107.1 Albumin, Urine Random mg/L 24.7 Albumin/Creat Ratio <30 mg/g 23 Hemoglobin A1C 4.3 - 5.6 % 6.1 (H) Estimated Average Glucose mg/dL 128 ASSESSMENT/PLAN: 1. Diabetes mellitus with macular edema, both eyes - ICD9: 250.50, 362.07, ICD10: E11.311 (primary diagnosis) - Controlled - Continue current medications - Blood glucose monitoring on a once daily schedule - Counseled on healthy diet and regular exercise - Follow up in 6 months, sooner should any other issues arise. - COMP METABOLIC PANEL - HGB A1C - LIPID PANEL, NONFASTING 2. BENIGN HYPERTENSION - ICD9: 401.1, ICD10: I10 - Controlled - Continue current medications - Recommend home blood pressure monitoring, to bring results to next visit - Encouraged sodium restriction, DASH or Mediterranean diet - Recommend regular aerobic exercise 3. Hyperlipidemia associated with type 2 diabetes mellitus (HCC) - ICD9: 250.80, 272.4, ICD10: E11.69, E78.5 - Control undetermined, due for labs - Continue current medications - Counseled on healthy diet and regular exercise - Discussed need for and benefit of weight loss. BMI 25.63 kg/(m^2) 4. Arthritis of both knees - ICD9: 716.96, ICD10: M17.0 Patient with bone on bone arthritis. Referred to ortho, but has not followed up. Continue with NSAIDs OTC. 5. Wears hearing aid - ICD9: V45.89, ICD10: Z97.4 Continue daily use Deonte Hamm MD documented in this encounterSt. [facility]09-18-2023 Miscellaneous Notes* Letter - Coordinator, Mammography - 10/26/2022 11:35 AM EDT October 26, 2022 PID: [id number] Monisha Fitzpatrick [address] [place] [address] Dear Ms. Fitzpatrick, We are pleased to inform you that the results of your recent breast imaging exam on 10/23/2022 are normal. Your mammogram demonstrates that you have dense breast tissue, which could hide abnormalities. Dense breast tissue, in and of itself, is a relatively common condition. Therefore, this information is not provided to cause undue concern; rather, it is to raise your awareness and promote discussion with your health care provider regarding the presence of dense breast tissue in addition to other riskfactors. Early detection of cancer is very important. We also understand recommendations regarding breast cancer screening are controversial. Please discuss with your primary care provider which strategy is best for you and whether a mammogram is right for you. Your imaging studies and report will be kept on file at [facility] as part of your permanent medical record and are available for your continuing care. Thank you for allowing us to help in meeting your health care needs. Sincerely, Dr. Christiansen Interpreting Radiologist [facility] (Normal over 40) documented in this encounterSt. [facility] Hospital08-21-2023 Miscellaneous Notes* Telephone Encounter - Geraldine Romano LPN - 09/28/2022 12:47 PM EDT Phoned patient and updated her. She voiced understanding. * Telephone Encounter - Deonte Hamm MD - 09/28/2022 11:54 AM EDT Order approved. * Telephone Encounter - Dania Calero RN - 09/28/2022 11:05 AM EDT Patient calls and states is due to have yearly Mammogram. Patient asking if order can be placed so that patient can get this scheduled? Please review and advise, Dania Calero RN documented in this encounterSt. [facility]06-14-2023 Miscellaneous Notes* Telephone Encounter - Brinda Rich - 07/22/2022 10:37 AM EDT Patient has been identified by name and date of : Yes Last office visit in this department: 06/03/2022 RX INSTRUCTIONS: Patient aware of auto request from pharmacy. Did not initiate those requests. These are the medications she needs. Patient aware RX will be sent to pharmacy. No need to notify patient. Patient phones requesting refills as follows: Requested Prescriptions Pending Prescriptions Disp Refills hydroCHLOROthiazide 12.5 mg capsule 90 capsule 1 Sig: Take 1 capsule by mouth once daily. losartan (COZAAR) 100 mg tablet 90 tablet 1 Sig: Take 1 tablet by mouth once daily. metFORMIN (GLUCOPHAGE) 500 mg tablet 360 tablet 1 Sig: Take 2 tablets by mouth twice daily with meals. . atorvastatin (LIPITOR) 20 mg tablet 90 tablet 1 Sig: Take 1 tablet by mouth daily at bedtime. For cholesterol. fluticasone (FLONASE) 50 mcg/actuation nasal spray 3 Each 1 Sig: Use 2 Sprays in each nostril once daily. ONE TO TWO SPRAYS TO EACH NOSTRIL ONCE DAILY amLODIPine (NORVASC) 10 mg tablet 90 tablet 1 Sig: Take 1 tablet by mouth once daily. Please review and advise. Brinda Rich documented in this encounterSt. [facility]05-12-2023 Miscellaneous Notes* Telephone Encounter - Izzy Johnston MA - 06/19/2022 2:00 PM EDT Patient has been identified by name and date of : Yes Requested Prescriptions Pending Prescriptions Disp Refills blood sugar diagnostic (ACCU-CHEK FAISAL) test strip 100 Strip 3 Sig: Test blood sugar(s) one time daily. Dx: E11.9. Insulin: No albuterol HFA (VENTOLIN HFA) 90 mcg/actuation inhaler 18 g 2 Sig: Inhale 2 Puffs as instructed every 4 hours as needed for wheezing/shortness of breath. RX INSTRUCTIONS: Patient aware RX will be sent to pharmacy. No need to notify patient. Izzy Johnston MA May 05/2022Dec 1811/2022 Last refill 03/2021 * Telephone Encounter - Quyen Mcintyre - 06/18/2022 2:20 PM EDT Patient has been identified by name and date of : Yes Last office visit in this department: 06/03/2022 RX INSTRUCTIONS: Patient aware RX will be sent to pharmacy. No need to notify patient. Patient phones requesting refills as follows: Requested Prescriptions Pending Prescriptions Disp Refills blood sugar diagnostic (ACCU-CHEK FAISAL) test strip 100 Strip 3 Sig: Test blood sugar(s) one time daily. Dx: E11.9. Insulin: No albuterol HFA (VENTOLIN HFA) 90 mcg/actuation inhaler 18 g 2 Sig: Inhale 2 Puffs as instructed every 4 hours as needed for wheezing/shortness of breath. Please review and advise. Quyen Mcintyre documented in this encounterSt. [facility]04-26-2023 Miscellaneous Notes* Telephone Encounter - MELODY Howard - 06/03/2022 4:26 PM EDT TC to patient who verbalized understanding and has no further questions at this time. MELODY Howard * Telephone Encounter - Tonya Shine APRN.CNP - 06/03/2022 2:05 PM EDT Patient just completed blood work a few weeks ago. No need to repeat. Is due for her urine to be checked. I ordered this. Tonya Shine APRN.CNP * Telephone Encounter - Hayde Romero LPN - 06/03/2022 1:52 PM EDT Patient calling scheduled her 6 month follow up for diabetes for mid November. Patient said she usually has to get lab work done, no orders in computer? Last lipid done 11/29, last HGBA1C done early May. Pending orders if wanted, needs diagnosis. Please notify patient so she can schedule her lab appt ahead of time. Please advise documented in this encounterSt. [facility] Hospital04-26-2023 History of Present illness Narrative* Brinda Fajardo RT(R) - 06/03/2022 10:40 AM EDT Radiology Service Progress Note PATIENT NAME: Monisha Fitzpatrick DATE OF SERVICE: June 03, 2022 TIME: 10:34 AM PATIENT IDENTITY VERIFICATION COMPLETED USING TWO (2) IDENTIFIERS: Name and Date of confirmedby patient verbally. FALL SCREENING: Has the patient had 2 falls in the last year or 1 fall with injury or currently using an Ambulatory Assistive Device (Walker, Cane, Wheelchair, Crutches, etc.)? No PATIENT GENDER DATA: Female. status: : No status: NO. PATIENT RELEVANT IMPLANT DATA REVIEWED: Not Applicable RADIOLOGY DEPARTMENT: General X-ray: Exam(s) Completed: Lower Extremity X- Ray(s): Knee, AP / LAT Left and Wt. Bearing PERIPHERAL IV DATA: Not applicable SIGNED BY: RT Merrill(R) June 03, 2022 10:34 AM documented in this encounterSt. [facility] Hospital04-26-2023 History of Present illness Narrative* Deonte Hamm MD - 06/03/2022 10:00 AM EDT Chief Complaint Patient presents with: Left Knee Pain HPI Monisha Fitzpatrick is a 76 year old female who presents here today for Above Complaints. History of OA in both knees. Xray in 2016 showed severe OA of her left knee. Patient here today for complaint of chronic left knee pain which has worsened over the last 3 months without new injury. Described as intermittent aching pain without radiation. Located over medial aspect of the knee which is exacerbated with standing or walking. Improved with rest. Treating with ibuprofen BID which does help reduce her pain. Denies locking, catching, giving out, swelling, erythema, fever/chills. Went to back in 2019 which helped with her knee pain. Has not had injections or seen ortho for this. Past medical history, appointments, medications, allergies reviewed. Previous Medical History PAST MEDICAL HISTORY Diagnosis Date Aortic ejection murmur 04/06/2014 Arthritis of both knees 01/14/2017 Diabetes mellitus with macular edema, both eyes ([facility]) 02/23/2013 Dr. Oliva, Dr. StrongDomhjefp-Lkwirb-drenn Esophageal reflux External hemorrhoids without mention of complication Hyperlipidemia LDL goal <100 11/22/2015 Internal hemorrhoids without mention of complication Laryngospasm epi pen 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) 02/23/2013 PMH - PAST MEDICAL HISTORY OF change in bowel habits PMH - PAST MEDICAL HISTORY OF breathing shut down of and on Renal cyst 12/25/2015 right renal cyst Retinal edema 01/23/2014 Left eye - See scanned documents Retinal hemorrhage 07/19/2010 Unspecified constipation Unspecified essential hypertension Vasomotor rhinitis 04/06/2014 Venous (peripheral) insufficiency 08/13/2011 White coat hypertension 05/01/2013 Previous Surgical History PAST SURGICAL HISTORY Procedure Laterality Date CATARACT EXTRACTION HX Bilateral 10/2018, 09/2020 COLONOSCOPY FLX DX W/COLLJ SPEC WHEN PFRMD 08/21/2005 Repeat in FNA WITH IMAGING Right 12/06/2015 U/S FNA right groin PAST SURGICAL HISTORY OF CHILD TONSILS PAST SURGICAL HISTORY OF Left laser surgery to left eye SCREENING COLONSCOPY NOT HIGH RISK 02/2016 normal Family History FAMILY HISTORY Problem Relation Age of Onset other (gallbladder problems) Mother ulcers/stomach problems Emphysema Father ulcers Coronary Artery Disease Father Diabetes Paternal Grandmother Diabetes Paternal Aunt Diabetes Paternal Uncle Diabetes Maternal Uncle Patient Allergies ALLERGIES Allergen Reactions Lisinopril Swelling angioedema Doxycycline GI Upset Nausea w/o vomiting, bad taste Penicillin G Prednisone JITTERY Sulfa (Sulfonamide * Current Medications Current Outpatient Medications on File Prior to Visit Medication Sig Lancing Device with Lancets (ACCU-CHEK FASTCLIX LANCING DEV) 1 Each as directed. Use as directed. DX: E11.9, Insulin: No EPINEPHrine (EPIPEN) 0.3 mg/0.3 mL auto-injector 0.3 ml subcutaneously as needed for hypersensitivity reaction hydroCHLOROthiazide (HYDRODIURIL, ESIDRIX) 12.5 mg capsule Take 1 capsule by mouth once daily. losartan (COZAAR) 100 mg tablet Take 1 tablet by mouth once daily. amLODIPine (NORVASC) 10 mg tablet Take 1 tablet by mouth once daily. metFORMIN (GLUCOPHAGE) 500 mg tablet Take 2 tablets by mouth twice daily with meals. . atorvastatin (LIPITOR) 20 mg tablet Take 1 tablet by mouth daily at bedtime. For cholesterol. fluticasone (FLONASE) 50 mcg/actuation nasal spray Use 2 Sprays in each nostril once daily. ONE TO TWO SPRAYS TO EACH NOSTRIL ONCE DAILY Lancets (ACCU-CHEK MULTICLIX LANCET) lancets 1 Each as directed. daily. Use as instructed. Dx 250.00 No insulin blood sugar diagnostic (ACCU-CHEK FAISAL) test strip Test blood sugar(s) one time daily. Dx: E11.9. Insulin: No albuterol HFA (VENTOLIN HFA) 90 mcg/actuation inhaler Inhale 2 Puffs as instructed every 4 hours asneeded for wheezing/shortness of breath. ibuprofen (MOTRIN) 400 mg tablet Take 1 tablet by mouth twice daily as needed for Pain. docusate sodium (COLACE) 100 mg capsule Take 100 mg by mouth twice daily. psyllium seed/sucrose(METAMUCIL SMOOTH TEXTURE 28 % PACKET) twicw daily CALCIUM 600 + D 600 MG-125 UNIT TAB Take one(1) tablet two(2) times daily. aflibercept opthalmic intravitreal (EYLEA) 2 mg/0.05 mL soln Use 0.05 mL in the left eye one time only for 1 dose. No current facility-administered medications on file prior to visit. Social History Social History Tobacco Use Smoking status: Never Smokeless tobacco: Never Substance Use Topics Alcohol use: No Drug use: No Review of Symptoms REVIEW OF SYSTEMS See HPI EXAM: BP 138/78 Pulse 92 Temp 36.2 C (97.1 F) (Right Tympanic) Resp 16 Wt 73.1 kg (161 lb 3.2 oz) SpO2 97% BMI 26.83 kg/m General Appearance: Well appearing, alert, in no acute distress, well-hydrated, well nourished.. Skin: Skin color, texture, turgor normal, no suspicious rashes or lesions. KNEE:Location: Left Redness: No. Warmth: No. Crepitus: Yes. Effusion: Yes. Joint line tenderness: No. Lateral tenderness: No. Medial tenderness: No. Drawer sign negative: Yes. Medial or lateral laxity: Yes. Laxity and clicking with valgus stress. Rambo's sign: No. Health Maintenance List SHINGRIX VACCINE(2 of 3) due on 08/10/2014 ADVANCE DIRECTIVE DISCUSSION Never done DILATED RETINAL EXAM due on 11/03/2022 HBA1C due on 11/10/2022 URINE ALBUMIN:CREATININE RATIO due on 11/13/2022 LDL CHOLESTEROL due on 11/13/2022 DIABETIC FOOT EXAM due on 05/21/2023 ANNUAL PCP TEAM CHRONIC DISEASE VISIT due on 05/21/2023 BP CONTROLLED (<130/80) due on 05/21/2023 DTAP,TDAP,TD(3 - Td or Tdap) due on 06/15/2024 BONE DENSITY Completed INFLUENZA Completed DEPRESSION ASSESSMENT Completed HEPATITIS C SCREENING Completed COVID-19 VACCINE Completed PNEUMOCOCCAL: 65+ Completed ASSESSMENT/PLAN: 1. Chronic pain of left knee - ICD9: 719.46, 338.29, ICD10: M25.562, G89.29 (primary diagnosis) Suspect pain 2/2 severe OA. Will obtain xray today and have her continue with NSAIDs OTC. Discussedice, rest, elevation as well. Will refer to ortho to discuss injection vs knee replacement. Doubt there would be much improvement through PT with severe OA as seen on previous xray. - XR KNEE LIMITED 2V AP/LAT LEFT - CONSULT TO ORTHOPAEDICS 2. Laxity of knee joint, left - ICD9: 717.9, ICD10: M23.8X2 No acute injury. F/u with ortho as above. - XR KNEE LIMITED 2V AP/LAT LEFT - CONSULT TO ORTHOPAEDICS 3. Arthritis of both knees - ICD9: 716.96, ICD10: M17.0 - XR KNEE LIMITED 2V AP/LAT LEFT - CONSULT TO ORTHOPAEDICS 4. Bilateral hearing loss, unspecified hearing loss type - ICD9: 389.9, ICD10: H91.93 Patient requesting referral to DR. Khan for hearing testing instead of going to [facility] for Audiometry. - CONSULT TO ENT Deonte Hamm MD documented in this encounterSt. [facility]03-15-2023 Miscellaneous Notes* Telephone Encounter - Sol Downs LPN - 04/22/2022 2:25 PM EDT Patient notified of Rx, verbalizes understanding of instructions. Sol Downs LPN * Telephone Encounter - Deonte Hamm MD - 04/22/2022 1:22 PM EDT Rx sent as requested. * Telephone Encounter - Nika Rodriguez RN - 04/22/2022 12:14 PM EDT Patient calling and requesting a different blood sugar lancing device. Requesting an ACCU CHECK FASTCLIX lancing device. Script pended for review. Uses [facility]. Thank you. documented in this encounterSt. [facility] Hospital12-22-2022 Miscellaneous Notes* Telephone Encounter - Dania Neves - 01/29/2022 10:47 AM EST Patient has been identified by name and date of : Yes Patient phones for refill(s): Requested Prescriptions Pending Prescriptions Disp Refills hydroCHLOROthiazide (HYDRODIURIL, ESIDRIX) 12.5 mg capsule 90 capsule 1 Sig: Take 1 capsule by mouth once daily. losartan (COZAAR) 100 mg tablet 90 tablet 1 Sig: Take 1 tablet by mouth once daily. amLODIPine (NORVASC) 10 mg tablet 90 tablet 1 Sig: Take 1 tablet by mouth once daily. metFORMIN (GLUCOPHAGE) 500 mg tablet 360 tablet 1 Sig: Take 2 tablets by mouth twice daily with meals. . atorvastatin (LIPITOR) 20 mg tablet 90 tablet 1 Sig: Take 1 tablet by mouth daily at bedtime. For cholesterol. Date of last office visit in primary care: 11/19/21 Labs-12/17/21 NOV-05/20/22 med filled 07/18/21 Last 2 Encounter Wt Readings: Date: Wt: 11/19/2021 73.9 kg (163 lb) 04/25/2021 73.9 kg (163 lb) Previous labs/tests for medication: Not applicable Please advise. Thank you. Dania Neves documented in this encounterSt. [facility]10-27-2022 Miscellaneous Notes* Telephone Encounter - Quyen Miguelina - 12/04/2021 11:08 AM EDT Patient has been identified by name and date of : Yes Last office visit in this department: 11/19/2021 RX INSTRUCTIONS: Patient aware RX will be sent to pharmacy. No need to notify patient. Patient phones requesting refills as follows: Requested Prescriptions Pending Prescriptions Disp Refills fluticasone (FLONASE) 50 mcg/actuation nasal spray 3 Each 1 Sig: Use 2 Sprays in each nostril once daily. ONE TO TWO SPRAYS TO EACH NOSTRIL ONCE DAILY Please review and advise. Quyen Mcintyre documented in this encounterSt. [facility] Hospital10-12-2022 History of Present illness Narrative* Deonte Hamm MD - 11/19/2021 9:06 AM EDT Chief Complaint Patient presents with: 6 Month Exam HPI Monisha Fitzpatrick is a 76 year old female who presents here today for Above Complaints. Has been in good health without hospitalizations or ER visits. No falls in the last 6 months. DIABETES MELLITUS: Ms. Fitzpatrick was last seen 6 months ago. Since our last visit she denies excessivethirst or increased frequency of urination, numbness, tingling or pain in extremities, and low sugar/hypoglycemic reactions. Admits to visit changes, having hard time reading the fine print. Follows a diabetic diet most of the time. She is compliant with medication(s) and is tolerating med(s) without any side effects. She reports checking her glucose on a once a day schedule with sugars in the fasting <110 range. Patient's last HgA1C was Hemoglobin A1C (%) Date Value 11/13/2021 6.4 04/21/2021 6.3 10/11/2020 6.7 04/16/2020 6.6 ) Last Ophthalmology exam was 11/03. Records in scanning. Getting eylea injection in left eye for edema. Last Podiatry exam was within the past 12 months BP elevated on initial check today. Compliant with regimen. Checks BP at home with readings 130/70-80 range. Requesting flu and COVID vaccine today. Past medical history, appointments, medications, allergies reviewed. Previous Medical History PAST MEDICAL HISTORY Diagnosis Date Aortic ejection murmur 04/06/2014 Arthritis of both knees 01/14/2017 Diabetes mellitus with macular edema, both eyes ([facility]) 02/23/2013 Dr. Oliva, Dr. StrongOytacwlr-Gkntoc-egpte Esophageal reflux External hemorrhoids without mention of complication Hyperlipidemia LDL goal <100 11/22/2015 Internal hemorrhoids without mention of complication Laryngospasm epi pen Nonproliferative diabetic retinopathy of both eyes ([facility]) 02/23/2013 PMH - PAST MEDICAL HISTORY OF change in bowel habits PMH - PAST MEDICAL HISTORY OF breathing shut down of and on Renal cyst 12/25/2015 right renal cyst Retinal edema 01/23/2014 Left eye - See scanned documents Retinal hemorrhage 07/19/2010 Unspecified constipation Unspecified essential hypertension Vasomotor rhinitis 04/06/2014 Venous (peripheral) insufficiency 08/13/2011 White coat hypertension 05/01/2013 Previous Surgical History PAST SURGICAL HISTORY Procedure Laterality Date CATARACT EXTRACTION HX Bilateral 10/2018, 09/2020 COLONOSCOPY FLX DX W/COLLJ SPEC WHEN PFRMD 08/21/2005 Repeat in FNA WITH IMAGING Right 12/06/2015 U/S FNA right groin PAST SURGICAL HISTORY OF CHILD TONSILS PAST SURGICAL HISTORY OF Left laser surgery to left eye SCREENING COLONSCOPY NOT HIGH RISK 02/2016 normal Family History FAMILY HISTORY Problem Relation Age of Onset other (gallbladder problems) Mother ulcers/stomach problems Emphysema Father ulcers Coronary Artery Disease Father Diabetes Paternal Grandmother Diabetes Paternal Aunt Diabetes Paternal Uncle Diabetes Maternal Uncle Patient Allergies ALLERGIES Allergen Reactions Lisinopril Swelling angioedema Doxycycline GI Upset Nausea w/o vomiting, bad taste Penicillin G Prednisone JITTERY Sulfa (Sulfonamide * Current Medications Current Outpatient Medications on File Prior to Visit Medication Sig atorvastatin (LIPITOR) 20 mg tablet Take 1 tablet by mouth daily at bedtime. For cholesterol. hydroCHLOROthiazide (HYDRODIURIL, ESIDRIX) 12.5 mg capsule Take 1 capsule by mouth once daily. Lancets (ACCU-CHEK MULTICLIX LANCET) lancets 1 Each as directed. daily. Use as instructed. Dx 250.00 No insulin metFORMIN (GLUCOPHAGE) 500 mg tablet Take 2 tablets by mouth twice daily with meals. . losartan (COZAAR) 100 mg tablet Take 1 tablet by mouth once daily. amLODIPine (NORVASC) 10 mg tablet Take 1 tablet by mouth once daily. blood sugar diagnostic (ACCU-CHEK FAISAL) test strip Test blood sugar(s) one time daily. Dx: E11.9. Insulin: No albuterol HFA (VENTOLIN HFA) 90 mcg/actuation inhaler Inhale 2 Puffs as instructed every 4 hours asneeded for wheezing/shortness of breath. fluticasone (FLONASE) 50 mcg/actuation nasal spray Use 2 Sprays in each nostril once daily. ONE TO TWO SPRAYS TO EACH NOSTRIL ONCE DAILY EPINEPHrine (EPIPEN) 0.3 mg/0.3 mL auto-injector 0.3 ml subcutaneously as needed for hypersensitivity reaction ibuprofen (MOTRIN) 400 mg tablet Take 1 tablet by mouth twice daily as needed for Pain. docusate sodium (COLACE) 100 mg ORAL capsule Take 100 mg by mouth twice daily. psyllium seed/sucrose(METAMUCIL SMOOTH TEXTURE 28 % PACKET) twicw daily CALCIUM 600 + D 600 MG-125 UNIT TAB Take one(1) tablet two(2) times daily. bevacizumab (AVASTIN) 25 mg/mL injection 1.25 mg by INTRAVITREAL route as directed. Current Facility-Administered Medications on File Prior to Visit Medication perflutren lipid microspheres 1.3 mL in NaCl (PF) 0.9% 10 mL injection (DEFINITY) sodium chloride 0.9 % (flush) 10 mL (BD POSIFLUSH) Social History Social History Tobacco Use Smoking status: Never Smokeless tobacco: Never Substance Use Topics Alcohol use: No Drug use: No Review of Symptoms REVIEW OF SYSTEMS GENERAL: No weight loss, malaise or fevers RESPIRATORY: Negative for cough, hemoptysis, wheezing, COPD, dyspnea or shortness of breath CARDIOVASCULAR: Negative for chest pain, leg swelling, hypertension, CHF or palpitations GI: No nausea, vomiting, or diarrhea SKIN: Negative for lesions, rash, and itching EXAM: BP 152/84 Pulse 106 Resp 18 Wt 73.9 kg (163 lb) SpO2 97% BMI 27.66 kg/m General Appearance: Well appearing, alert, in no acute distress, well-hydrated, well nourished.. Skin: Skin color, texture, turgor normal, no suspicious rashes or lesions. Lungs: Lungs clear to auscultation. No wheezing, rhonchi, rales.. Heart: RRR with 2/6 MADHAV heard at RUSB Abdomen: Normal abdominal exam, Abdomen soft, non-tender. Bowel sounds normal. No masses, organomegaly. Extremities: No deformities, edema, skin discoloration, clubbing or cyanosis. Good capillary refill. . Health Maintenance List BP CONTROLLED (<130/80) Never done SHINGRIX VACCINE(2 of 3) due on 08/10/2014 ADVANCE DIRECTIVE DISCUSSION Never done DEPRESSION ASSESSMENT Never done COVID-19 VACCINE(5 - Booster for Pfizer series) due on 06/20/2021 INFLUENZA(1) due on 10/09/2021 DIABETIC FOOT EXAM due on 04/25/2022 ANNUAL PCP TEAM CHRONIC DISEASE VISIT due on 04/25/2022 HBA1C due on 05/14/2022 DILATED RETINAL EXAM due on 11/03/2022 URINE ALBUMIN:CREATININE RATIO due on 11/13/2022 LDL CHOLESTEROL due on 11/13/2022 DTAP,TDAP,TD(3 - Td or Tdap) due on 06/15/2024 BONE DENSITY Completed HEPATITIS C SCREENING Completed PNEUMOCOCCAL: 65+ Completed Data reviewed Component Latest Ref Rng & Units 04/21/2021 11/13/2021 Protein, Total 6.3 - 8.0 g/dL 7.8 7.2 Albumin 3.9 - 4.9 g/dL 4.4 4.2 Calcium 8.5 - 10.2 mg/dL 10.5 (H) 9.9 Bilirubin, Total 0.2 - 1.3 mg/dL 0.3 0.3 Alkaline Phosphatase 34 - 123 U/L 79 76 AST 13 - 35 U/L 18 19 ALT 7 - 38 U/L 12 14 Glucose 74 - 99 mg/dL 89 96 BUN 7 - 21 mg/dL 25 (H) 23 (H) Creatinine 0.58 - 0.96 mg/dL 0.55 (L) 0.61 Sodium 136 - 144 mmol/L 139 141 Potassium 3.7 - 5.1 mmol/L 4.1 3.8 Chloride 97 - 105 mmol/L 99 100 CO2 22 - 30 mmol/L 30 31 (H) Anion Gap 9 - 18 mmol/L 10 10 eGFR >=60 mL/min/1.73m 96 93 WBC 3.70 - 11.00 k/uL 9.73 RBC 3.90 - 5.20 m/uL 4.29 Hemoglobin 11.5 - 15.5 g/dL 12.4 Hematocrit 36.0 - 46.0 % 38.2 MCV 80.0 - 100.0 fL 89.0 MCH 26.0 - 34.0 pg 28.9 MCHC 30.5 - 36.0 g/dL 32.5 RDW-CV 11.5 - 15.0 % 13.1 Platelet Count 150 - 400 k/uL 410 (H) MPV 9.0 - 12.7 fL 10.4 Absolute nRBC <0.01 k/uL <0.01 Total Cholesterol, Nonfasting <200 mg/dL 161 Triglycerides, Nonfasting <150 mg/dL 148 HDL Cholesterol, Nonfasting >39 mg/dL 63 LDL Cholesterol, Nonfasting <100 mg/dL 68 Non HDL Cholesterol, Nonfasting <130 mg/dL 98 VLDL Cholesterol, Nonfasting <30 mg/dL 30 (H) Total Chol/HDL Ratio, Nonfasting <5.10 mg/dL 2.56 LDL/HDL Ratio, Nonfasting <2.54 mg/dL 1.08 Creatinine, Ur Random (UCRR) 20.0 - 300.0 mg/dL 78.7 Albumin, Urine Random mg/L 22.5 Albumin/Creat Ratio <30 mg/g 29 Hemoglobin A1C 4.3 - 5.6 % 6.3 (H) 6.4 (H) Estimated Average Glucose mg/dL 134 137 Hep C Antibody IA Negative Negative ASSESSMENT/PLAN: 1. Diabetes mellitus with macular edema, both eyes (HCC) - ICD9: 250.50, 362.07, ICD10: E11.311 (primary diagnosis) Controlled. - Continue current medications - Blood glucose monitoring on a once a day schedule - Encouraged regular aerobic exercise and weight loss - Discussed diabetic education issues of mcc diabetic complications, hypoglycemic symptoms, hyperglycemic symptoms, diet, medications- side effects and need for compliance, importance of exercise, and importance of annual examinations with Opthalmology with patient. 2. 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) - ICD9: 250.50, 362.03, ICD10: E11.3293 Increased difficulty seeing fine print. Recommendations per optho. 3. BENIGN HYPERTENSION - ICD9: 401.1, ICD10: I10 - suboptimal control - Continue current medication(s) - Encouraged dietary sodium restriction/DASH diet - Recommended regular aerobic exercise. - Follow up in 1 month for BP recheck. - Reviewed risks of HTN and principles of treatment - Goal of BP <140/90 4. Hyperlipidemia associated with type 2 diabetes mellitus (HCC) - ICD9: 250.80, 272.4, ICD10: E11.69, E78.5 Controlled. - Continue current medications 5. Need for influenza vaccination - ICD9: V04.81, ICD10: Z23 - INFLUENZA SEASONAL QUADRIVALENT HIGH DOSE AGE 65+ 6. Need for COVID-19 vaccine - ICD9: V04.89, ICD10: Z23 - PFIZER-BIONTECH COVID-19 BIVALENT BOOSTER VACCINE, AGE 12+ YR 7. Thrombocytosis - ICD9: 238.71, ICD10: D75.839 Mild elevation. Suspect acute phase reactant. Recheck in 1 month. - CBC + DIFF Deonte Hamm MD documented [facility] Miscellaneous Notes* Letter - Mammography Coordinator - 09/25/2021 2:51 PM EDT September 25, 2021 PID: [id number] Monisha Fitzpatrick [address] [place] [address] Dear Ms. Fitzpatrick, We are pleased to inform you that the results of your recent breast imaging exam on 09/25/2021 are normal. Your mammogram demonstrates that you have dense breast tissue, which could hide abnormalities. Dense breast tissue, in and of itself, is a relatively common condition. Therefore, this information is not provided to cause undue concern; rather, it is to raise your awareness and promote discussion with your health care provider regarding the presence of dense breast tissue in addition to other riskfactors. Early detection of cancer is very important. We also understand recommendations regarding breast cancer screening are controversial. Please discuss with your primary care provider which strategy is best for you and whether a mammogram is right for you. Your imaging studies and report will be kept on file at [facility] as part of your permanent medical record and are available for your continuing care. Thank you for allowing us to help in meeting your health care needs. Sincerely, Dr. Philippe Interpreting Radiologist [facility] (Normal over 40) documented in this encounterSt. [facility]07-29-2022 Miscellaneous Notes* Telephone Encounter - Radha Cho Ma - 09/05/2021 11:13 AM EDT Pt called and notified that order placed. Will call to schedule. Radha Cho Ma * Telephone Encounter - Deonte Hamm MD - 09/05/2021 11:07 AM EDT Order approved. * Telephone Encounter - Hayde Romero LPN - 09/05/2021 11:01 AM EDT Patient calling received letter, time for yearly mamm. Patient gets done at [facility], last one done 09/02/2020. Pending order to file. Please notify patient to schedule appt. Please advise documented in this encounterSt[facility]06[facility]22 Miscellaneous Notes* Telephone Encounter - Talisha Croft - 07/18/2021 11:46 AM EDT Patient has been identified by name and date of : Yes Pending Prescriptions Disp Refills ATORVASTATIN 20 MG TABLET 90 tablet 1 Sig: Take 1 tablet by mouth daily at bedtime. For cholesterol. ELIZABETH: No HYDROCHLOROTHIAZIDE 12.5 MG CAPSULE 90 capsule 1 Sig: Take 1 capsule by mouth once daily. ELIZABETH: No LANCETS 50 Each 6 Si Each as directed. daily. Use as instructed. Dx 250.00 No insulin ELIZABETH: No METFORMIN 500 MG TABLET 360 tablet 1 Sig: Take 2 tablets by mouth twice daily with meals. . ELIZABETH: No LOSARTAN 100 MG TABLET 90 tablet 1 Sig: Take 1 tablet by mouth once daily. ELIZABETH: No AMLODIPINE 10 MG TABLET 90 tablet 1 Sig: Take 1 tablet by mouth once daily. ELIZABETH: No MAY-04/25/21 Labs-04/21/21 NOV-11/19/21 RX INSTRUCTIONS: Patient aware RX will be sent to pharmacy. No need to notify patient. Talisha Croft documented in this encounterSt[facility]03-07-2022 Miscellaneous Notes* Telephone Encounter - Em Sommer LPN - 04/14/2021 2:55 PM EST Patient called and made aware. Voiced understanding. Em Sommer LPN * Telephone Encounter - Deonte Hamm MD - 04/14/2021 2:03 PM EST Labs ordered to be completed at least 2-3 days prior to appointment. Does not need to fast. * Telephone Encounter - Tamera Simpson - 04/14/2021 1:55 PM EST Pt called in and was asked if there were any labs that Noris wanted her to do? Last time she was here to do labs she was a [facility] patient. Please advise? documented in this encounterSt[facility]04-26-2021 Miscellaneous Notes* Telephone Encounter - Ghislaine Walsh RN - 06/03/2020 11:59 AM EDT Patient scheduled appt to transfer care to Dr. Hamm, in Oct. Asking if Dr. Vasquez would send order for her epi pen, and amlodipine early, as they run out in July. Also asking pcp to order labwork for her next appt in Oct. documented in this encounterSt. [facility]06-11-2011 History of Past illness Narrative* Problem Noted Date Resolved Date Retinal hemorrhage 07/19/2010 01/13/2018 Type II or unspecified type diabetes mellitus without mention of complication, not stated as uncontrolled 10/10/2007 HYPERLIPIDEMIA NEC/NOS 05/12/2005 5 External hemorrhoids without mention of complica tion 03/08/2014 Internal hemorrhoids without mention of complica tion 03/08/2014 documented as of this encounter (statuses as of 05/29/2021) [facility] of Past illness Narrative* Problem Noted Date Resolved Date Retinal hemorrhage 07/19/2010 01/13/2018 Type II or unspecified type diabetes mellitus without mention of complication, not stated as uncontrolled 10/10/2007 HYPERLIPIDEMIA NEC/NOS 05/12/2005 5 External hemorrhoids without mention of complica tion 03/08/2014 Internal hemorrhoids without mention of complica tion 03/08/2014 documented as of this encounter (statuses as of 07/12/2021) [facility] illness Narrative* Problem Noted Date Resolved Date Retinal hemorrhage 07/19/2010 01/13/2018 Type II or unspecified type diabetes mellitus without mention of complication, not stated as uncontrolled 10/10/2007 HYPERLIPIDEMIA NEC/NOS 05/12/2005 5 External hemorrhoids without mention of complica tion 03/08/2014 Internal hemorrhoids without mention of complica tion 03/08/2014 documented as of this encounter (statuses as of 07/18/2021) [facility] Narrative* Problem Noted Date Resolved Date Retinal hemorrhage 07/19/2010 01/13/2018 Type II or unspecified type diabetes mellitus without mention of complication, not stated as uncontrolled 10/10/2007 HYPERLIPIDEMIA NEC/NOS 05/12/2005 5 External hemorrhoids without mention of complica tion 03/08/2014 Internal hemorrhoids without mention of complica tion 03/08/2014 documented as of this encounter (statuses as of 09/05/2021) [facility] Narrative* Problem Noted Date Resolved Date Retinal hemorrhage 07/19/2010 01/13/2018 Type II or unspecified type diabetes mellitus without mention of complication, not stated as uncontrolled 10/10/2007 HYPERLIPIDEMIA NEC/NOS 05/12/2005 5 External hemorrhoids without mention of complica tion 03/08/2014 Internal hemorrhoids without mention of complica tion 03/08/2014 documented as of this encounter (statuses as of 09/27/2021) [facility] Narrative* Problem Noted Date Resolved Date Retinal hemorrhage 07/19/2010 01/13/2018 Type II or unspecified type diabetes mellitus without mention of complication, not stated as uncontrolled 10/10/2007 HYPERLIPIDEMIA NEC/NOS 05/12/2005 5 External hemorrhoids without mention of complica tion 03/08/2014 Internal hemorrhoids without mention of complica tion 03/08/2014 documented as of this encounter (statuses as of 11/19/2021) [facility] Narrative* Problem Noted Date Resolved Date Retinal hemorrhage 07/19/2010 01/13/2018 Type II or unspecified type diabetes mellitus without mention of complication, not stated as uncontrolled 10/10/2007 HYPERLIPIDEMIA NEC/NOS 05/12/2005 5 External hemorrhoids without mention of complica tion 03/08/2014 Internal hemorrhoids without mention of complica tion 03/08/2014 documented as of this encounter (statuses as of 12/04/2021) [facility] Narrative* Problem Noted Date Resolved Date Retinal hemorrhage 07/19/2010 01/13/2018 Type II or unspecified type diabetes mellitus without mention of complication, not stated as uncontrolled 10/10/2007 HYPERLIPIDEMIA NEC/NOS 05/12/2005 5 External hemorrhoids without mention of complica tion 03/08/2014 Internal hemorrhoids without mention of complica tion 03/08/2014 documented as of this encounter (statuses as of 01/30/2022) [facility] Narrative* Problem Noted Date Resolved Date Retinal hemorrhage 07/19/2010 01/13/2018 Type II or unspecified type diabetes mellitus without mention of complication, not stated as uncontrolled 10/10/2007 HYPERLIPIDEMIA NEC/NOS 05/12/2005 5 External hemorrhoids without mention of complica tion 03/08/2014 Internal hemorrhoids without mention of complica tion 03/08/2014 documented as of this encounter (statuses as of 06/03/2022) [facility] Narrative* Problem Noted Date Resolved Date Retinal hemorrhage 07/19/2010 01/13/2018 Type II or unspecified type diabetes mellitus without mention of complication, not stated as uncontrolled 10/10/2007 HYPERLIPIDEMIA NEC/NOS 05/12/2005 5 External hemorrhoids without mention of complica tion 03/08/2014 Internal hemorrhoids without mention of complica tion 03/08/2014 documented as of this encounter (statuses as of 06/04/2022) [facility] Narrative* Problem Noted Date Resolved Date Retinal hemorrhage 07/19/2010 01/13/2018 Type II or unspecified type diabetes mellitus without mention of complication, not stated as uncontrolled 10/10/2007 HYPERLIPIDEMIA NEC/NOS 05/12/2005 5 External hemorrhoids without mention of complica tion 03/08/2014 Internal hemorrhoids without mention of complica tion 03/08/2014 documented as of this encounter (statuses as of 06/04/2022) [facility] Narrative* Problem Noted Date Resolved Date Retinal hemorrhage 07/19/2010 01/13/2018 Type II or unspecified type diabetes mellitus without mention of complication, not stated as uncontrolled 10/10/2007 HYPERLIPIDEMIA NEC/NOS 05/12/2005 5 External hemorrhoids without mention of complica tion 03/08/2014 Internal hemorrhoids without mention of complica tion 03/08/2014 documented as of this encounter (statuses as of 06/19/2022) [facility]arrative* Problem Noted Date Resolved Date Retinal hemorrhage 07/19/2010 01/13/2018 Type II or unspecified type diabetes mellitus without mention of complication, not stated as uncontrolled 10/10/2007 HYPERLIPIDEMIA NEC/NOS 05/12/2005 5 External hemorrhoids without mention of complica tion 03/08/2014 Internal hemorrhoids without mention of complica tion 03/08/2014 documented as of this encounter (statuses as of 07/22/2022) [facility]arrative* Problem Noted Date Diagnosed Date Resolved Date Retinal hemorrhage 07/19/2010 8 Type II or unspecified type diabetes mellitus without mention of complication, not stated as uncontrolled 10/10/2007 02/23/2013 HYPERLIPIDEMIA NEC/NOS 05/12/200511/16 External hemorrhoids without mention of complication 03/08/2014 Internal hemorrhoids without mention of complication 03/08/2014 documented as of this encounter (statuses as of 09/28/2022) [facility]ative* Problem Noted Date Diagnosed Date Resolved Date Retinal hemorrhage 07/19/2010 8 Type II or unspecified type diabetes mellitus without mention of complication, not stated as uncontrolled 10/10/2007 02/23/2013 HYPERLIPIDEMIA NEC/NOS 05/12/200511/16 External hemorrhoids without mention of complication 03/08/2014 Internal hemorrhoids without mention of complication 03/08/2014 documented as of this encounter (statuses as of 10/28/2022) [facility]arrative* Problem Noted Date Diagnosed Date Resolved Date Retinal hemorrhage 07/19/2010 8 Type II or unspecified type diabetes mellitus without mention of complication, not stated as uncontrolled 10/10/2007 02/23/2013 HYPERLIPIDEMIA NEC/NOS 05/12/200511/16 External hemorrhoids without mention of complication 03/08/2014 Internal hemorrhoids without mention of complication 03/08/2014 documented as of this encounter (statuses as of 11/07/2022) [facility]arrative* Problem Noted Date Diagnosed Date Resolved Date Retinal hemorrhage 07/19/2010 8 Type II or unspecified type diabetes mellitus without mention of complication, not stated as uncontrolled 10/10/2007 02/23/2013 HYPERLIPIDEMIA NEC/NOS 05/12/200511/16 External hemorrhoids without mention of complication 03/08/2014 Internal hemorrhoids without mention of complication 03/08/2014 documented as of this encounter (statuses as of 11/28/2022) [facility]arrative* Problem Noted Date Diagnosed Date Resolved Date Retinal hemorrhage 07/19/2010 8 Type II or unspecified type diabetes mellitus without mention of complication, not stated as uncontrolled 10/10/2007 02/23/2013 HYPERLIPIDEMIA NEC/NOS 05/12/200511/16 External hemorrhoids without mention of complication 03/08/2014 Internal hemorrhoids without mention of complication 03/08/2014 documented as of this encounter (statuses as of 12/13/2022) [facility]arrative* Problem Noted Date Diagnosed Date Resolved Date Retinal hemorrhage 07/19/2010 8 Type II or unspecified type diabetes mellitus without mention of complication, not stated as uncontrolled 10/10/2007 02/23/2013 HYPERLIPIDEMIA NEC/NOS 05/12/200511/16 External hemorrhoids without mention of complication 03/08/2014 Internal hemorrhoids without mention of complication 03/08/2014 documented as of this encounter (statuses as of 01/19/2023) [facility]* Problem Noted Date Diagnosed Date Resolved Date Retinal hemorrhage 07/19/2010 8 Type II or unspecified type diabetes mellitus without mention of complication, not stated as uncontrolled 10/10/2007 02/23/2013 HYPERLIPIDEMIA NEC/NOS 05/12/200511/16 External hemorrhoids without mention of complication 03/08/2014 Internal hemorrhoids without mention of complication 03/08/2014 documented as of this encounter (statuses as of 05/03/2023) [facility]arrative* Problem Noted Date Diagnosed Date Resolved Date Retinal hemorrhage 07/19/2010 8 Type II or unspecified type diabetes mellitus without mention of complication, not stated as uncontrolled 10/10/2007 02/23/2013 HYPERLIPIDEMIA NEC/NOS 05/12/200511/16 External hemorrhoids without mention of complication 03/08/2014 Internal hemorrhoids without mention of complication 03/08/2014 documented as of this encounter (statuses as of 05/26/2023) [facility] Narrative* Problem Noted Date Diagnosed Date Resolved Date Retinal hemorrhage 07/19/2010 8 Type II or unspecified type diabetes mellitus without mention of complication, not stated as uncontrolled 10/10/2007 02/23/2013 HYPERLIPIDEMIA NEC/NOS 05/12/200511/16 External hemorrhoids without mention of complication 03/08/2014 Internal hemorrhoids without mention of complication 03/08/2014 documented as of this encounter (statuses as of 05/28/2023) [facility] Diagnosis Essential hypertension, benign- Primary Medication refill Issue of repeat prescriptions Diabetes mellitus with macular edema, both eyes (HCC) Type II or unspecified type diabetes mellitus with ophthalmic manifestations, not stated as uncontrolled Hyperlipidemia LDL goal <100 Other and unspecified hyperlipidemia Arthritis of both knees Unspecified arthropathy, lower leg [facility] Diagnosis Diabetes mellitus with macular edema, both eyes (HCC)- Primary Type II or unspecified type diabetes mellitus with ophthalmic manifestations, not stated as uncontrolled Encounter for hepatitis C screening test for low risk patient [facility] Diagnosis Hyperlipidemia associated with type 2 diabetes mellitus (HCC) BENIGN HYPERTENSION Essential hypertension, benign [facility]* Diagnosis Screening mammogram for breast cancer- Primary 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 [facility] Diagnosis BENIGN HYPERTENSION Essential hypertension, benign Hyperlipidemia associated with type 2 diabetes mellitus (HCC) [facility] this [facility] Diagnosis Chronic pain of left knee- Primary Pain in joint, lower leg Laxity of knee joint, left Arthritis of both knees Unspecified arthropathy, lower leg Bilateral hearing loss, unspecified hearing loss type [facility] Diagnosis Diabetes mellitus with macular edema, both eyes (HCC)- Primary Type II or unspecified type diabetes mellitus with ophthalmic manifestations, not stated as uncontrolled [facility] this [facility] Diagnosis Diabetes mellitus with macular edema, both eyes Type II or unspecified type diabetes mellitus with ophthalmic manifestations, not stated as uncontrolled [facility] Diagnosis BENIGN HYPERTENSION Essential hypertension, benign Hyperlipidemia associated with type 2 diabetes mellitus (HCC) [facility] this [facility]* Diagnosis Screening mammogram for breast cancer- Primary [facility] this [facility] Diagnosis Diabetes mellitus with macular edema, both eyes- Primary Type II or unspecified type diabetes mellitus with ophthalmic manifestations, not stated as uncontrolled BENIGN HYPERTENSION Essential hypertension, benign Hyperlipidemia associated with type 2 diabetes mellitus (HCC) Arthritis of both knees Unspecified arthropathy, lower leg Wears hearing aid Other postprocedural status [facility] Diagnosis Screening mammogram for breast cancer [facility] this [facility] Diagnosis BENIGN HYPERTENSION Essential hypertension, benign Hyperlipidemia associated with type 2 diabetes mellitus (HCC) [facility] this [facility]* Diagnosis Diabetes mellitus with macular edema, both eyes (HCC)- Primary Type II or unspecified type diabetes mellitus with ophthalmic manifestations, not stated as uncontrolled Hyperlipidemia LDL goal <100 Other and unspecified hyperlipidemia Essential hypertension, benign [facility] Diagnosis Hypercalcemia- Primary [facility] Diagnosis BENIGN HYPERTENSION Essential hypertension, benign Hyperlipidemia associated with type 2 diabetes mellitus (HCC) (HCC) Medication refill Issue of repeat prescriptions [facility] this [facility] Diagnosis Chronic pain of left knee Pain in joint, lower leg Arthritis of both knees Unspecified arthropathy, lower leg Laxity of knee joint, left [facility] Diagnosis Screening mammogram for breast cancer- Primary [facility] this 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 Diagnosis BENIGN HYPERTENSION Essential hypertension, benign Hyperlipidemia associated with type 2 diabetes mellitus (HCC) (HCC) documented [facility] this [facility]* Diagnosis Diabetes mellitus with macular edema, both eyes Type II or unspecified type diabetes mellitus with ophthalmic manifestations, not stated as uncontrolled documented [facility] this [facility]* Diagnosis Fatigue, unspecified type Loss of appetite Anorexia Unintentional weight loss Loss of weight [facility] this [facility]* Diagnosis Systolic ejection murmur- Primary Undiagnosed cardiac murmurs Abnormal echocardiogram Nonspecific (abnormal) findings on radiological and other examination of other intrathoracic organs Fatigue, unspecified type [facility] this [facility]* Diagnosis Fatigue, unspecified type- Primary Loss of appetite Anorexia Unintentional weight loss Loss of weight Pallor Aortic ejection murmur Aortic valve disorders Disorder of bone, unspecified Fatigue, unspecified type Loss of appetite Anorexia Unintentional weight loss Loss of weight [facility] this [facility]* Diagnosis Hypercalcemia- Primary documented [facility] this [facility]* Diagnosis Acute constipation- Primary Unspecified constipation External hemorrhoids External hemorrhoids without mention of complication BRBPR (bright red blood per rectum) Hemorrhage of rectum and anus Acute constipation Unspecified constipation [facility] this [facility]* Diagnosis Acute constipation Unspecified constipation [facility] this [facility]* Diagnosis Hypercalcemia- Primary documented [facility] this [facility]* Diagnosis Diabetes mellitus with macular edema, both eyes (HCC)- Primary Type II or unspecified type diabetes mellitus with ophthalmic manifestations, not stated as uncontrolled Fatigue, unspecified type Abnormal echocardiogram Nonspecific (abnormal) findings on radiological and other examination of other intrathoracic organs Aortic ejection murmur Aortic valve disorders Essential hypertension, benign Hyperlipidemia LDL goal <100 Other and unspecified hyperlipidemia Hammer toe of left foot Weight loss, unintentional Loss of weight Encounter for immunization Need for other specified prophylactic vaccination against single bacterial disease documented [facility] this [facility]* Diagnosis Decreased appetite- Primary Anorexia Nausea and vomiting, unspecified vomiting type Fatigue, unspecified type Viral gastroenteritis Intestinal infection due to other organism, not elsewhere classified Essential (primary) hypertension Unspecified essential hypertension Type 2 diabetes mellitus without complication, without long-term current use of insulin ([facility]) documented [facility] this encounter [facility]* Diagnosis Acute constipation- Primary Unspecified constipation Atrial fibrillation, unspecified type (HCC) Chronic anticoagulation Long-term (current) use of anticoagulants Nausea and vomiting, unspecified vomiting type [id number] adverse effect of medication, subsequent encounter Delirium Other alteration of consciousness Aneurysm of ascending aorta without rupture External hemorrhoids External hemorrhoids without mention of complication Essential hypertension, benign Acute kidney injury Acute kidney failure, unspecified Fecal impaction (HCC) Acute constipation Unspecified constipation documented [facility] this [facility]* Diagnosis Acute constipation Unspecified constipation documented [facility] this [facility]* Diagnosis Acute constipation- Primary Unspecified constipation documented [facility] this [facility]* Diagnosis Hypomagnesemia- Primary Disorders of magnesium metabolism documented [facility] this [facility]* Diagnosis Nausea and vomiting, unspecified vomiting type- Primary Decreased appetite Anorexia Constipation, unspecified constipation type Essential hypertension, benign Hyperlipidemia LDL goal <100 Other and unspecified hyperlipidemia Atrial fibrillation, unspecified type (HCC) Diabetes mellitus with macular edema, both eyes (HCC) Type II or unspecified type diabetes mellitus with ophthalmic manifestations, not stated as uncontrolled Leukocytosis, unspecified type Age-related physical debility Senility without mention of psychosis [facility] Diagnosis Hypercalcemia- Primary Iron deficiency anemia, unspecified iron deficiency anemia type documented in this encounter [facility]* Diagnosis Hyperlipidemia associated with type 2 diabetes mellitus (HCC) documented in this encounter [facility] for referral (narrative)* Diagnostic Procedure Only (Routine) - Authorized Specialty Diagnoses / Procedures Referred By Jayleen oviedo Referred To Contact BR IMAGING Diagnoses Screening mammogram for breast cancer Procedures GAVIN SCREENING SCREENING MAMMOGRAPHY BI 2-VIEW BREAST INC CAD Deonte Hamm MD [address] [place] [address] [facility] [address] [place] [id number] Referral ID Status Reason Start Date Expiration Date Visits Requested Visits Authorized [id number] Authorized Auto-Generat ed Referral 09/05/2021 10/05/2022 1 1 [facility] for referral (narrative)* Diagnostic Procedure Only (Routine) - Pending Review Specialty Diagnoses / Procedures Referred By Contac t Referred To Contact BR IMAGING Diagnoses Screening mammogram for breast cancer Procedures GAVIN SCREENING SCREENING MAMMOGRAPHY BI 2-[place] [address] [place] [address] [facility] [address] [place] [address] Referral ID Status Reason Start Date Expiration Date Visits Requested Visits Authorized [id number] Pending Review Auto-Generat ed Referral 09/28/2022 10/28/2023 1 1 [facility] for referral (narrative)* Diagnostic Procedure Only (Routine) - Closed Specialty Diagnoses / Procedures Referred By Contac t Referred To Contact BR IMAGING Diagnoses Screening mammogram for breast cancer Procedures GAVIN SCREENING SCREENING MAMMOGRAPHY BI 2-VIEW BREAST INC Deonte Stone MD [facility] [place] [address] [facility] [address] [place] [address] Referral ID Status Reason Start Date Expiration Date V isits Requested Visits Authorized [id number] Closed Auto-Generate d Referral 09/28/2022 10/28/2023 1 1 T [facility] for referral (narrative)* Diagnostic Procedure Only (Routine) - Closed Specialty Diagnoses / Procedures Referred By Contac t Referred To Contact XR IMAGING Diagnoses Chronic pain of left knee Arthritis of both knees Laxity of knee joint, left Procedures XR KNEE LIMITED 2V AP/LAT LEFT RADIOLOGIC EXAMINATION KNEE 1/2 VIEWS Deonte Hamm MD [address] [place] [address] Xr Imaging [id number] Referral ID Status Reason Start Date Expiration Date V isits Requested Visits Authorized [id number] Closed Auto-Generate d Referral 06/03/2022 07/03/2023 1 1 T [facility] for referral (narrative)No reason for referral information availableWAdena Health System Work Phone: [facility] Narrative* Diagnostic Procedure Only (Routine) - Closed Specialty Diagnoses / Procedures Referred By Jayleen t Referred To Contact BR IMAGING Diagnoses Screening mammogram for breast cancer Procedures GAVIN SCREENING SCREENING MAMMOGRAPHY BI 2-VIEW BREAST INC CAD Deonte Hamm MD [address] [place] [address] [facility] [address] [place] [address] Referral ID Status Reason Start Date Expiration Date V isits Requested Visits Authorized [id number] Closed Auto-Generate d Referral 09/28/2022 10/28/2023 1 1 [facility] for visit Narrative* Diagnostic Procedure Only (Routine) - Closed Specialty Diagnoses / Procedures Referred By Jayleen oviedo Referred To Contact XR IMAGING Diagnoses Chronic pain of left knee Arthritis of both knees Laxity of knee joint, left Procedures XR KNEE LIMITED 2V AP/LAT LEFT RADIOLOGIC EXAMINATION KNEE 1/2 VIEWS Deonte Hamm MD [address] [place] [address] [place] [address] Referral ID Status Reason Start Date Expiration Date V isits Requested Visits Authorized [id number] Closed Auto-Generate d Referral 06/03/2022 07/03/2023 1 1 [facility] for visit Narrative* Diagnostic Procedure Only (Urgent) - Closed Specialty Diagnoses / Procedures Referred By Jayleen t Referred To Contact XR IMAGING Diagnoses Acute constipation Procedures XR ABDOMEN 2V ROUTINE SUPINE W UPRIGHT/DECUB/CTL XR ABDOMEN 2V ROUTINE SUPINE W UPRIGHT/DECUB/CTL RADIOLOGIC EXAM ABDOMEN 2 VIEWS Deonte Hamm MD [address] [place] [address] Phone: tel: fax: [place] [address] Referral ID Status Reason Start Date Expiration Date V isits Requested Visits Authorized [id number] Closed Auto-Generate d Referral 04/27/2024 05/27/2025 1 1 [facility] for visit Narrative* Diagnostic Procedure Only (Urgent) - Closed Specialty Diagnoses / Procedures Referred By Maggyac t Referred To Contact XR IMAGING Diagnoses Acute constipation Procedures XR ABDOMEN 2V ROUTINE SUPINE W UPRIGHT/DECUB/CTL RADIOLOGIC EXAM ABDOMEN 2 VIEWS Deonte Hamm MD [address] [place] [address] Phone: tel: fax: [place] [address] Referral ID Status Reason Start Date Expiration Date V isits Requested Visits Authorized [id number] Closed Auto-Generate d Referral 07/06/2024 08/05/[address] 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 No June 26, 2024 11:22am Advance Directive Response Recorded Date/ Time Do you have a Healthcare Power of Ec Teacher? Yes June 26, 2024 6:24pm Reason for Referral Specialty Diagnoses / Procedures Referred By Contac t Referred To Contact Ent - Otolaryngology Diagnoses Bilateral hearing loss, unspecified hearing loss type Procedures CONSULT TO ENT OFFICE/OUTPATIENT [facility] 60-74 MINUTES Deonte Hamm MD [address] [place] [address] Referral ID Status Reason Start Date Expiration Date Visits Requested Visits Authorized [id number] Authorized PCP Requested Referral 06/03/2022 06/03/2023 1 1 Specialty Diagnoses / Procedures Referred By Contac t Referred To Contact Orthopedics Diagnoses Chronic pain of left knee Arthritis of both knees Laxity of knee joint, left Procedures CONSULT TO ORTHOPAEDICS OFFICE/OUTPATIENT [facility] 60-74 MINUTES Deonte Hamm MD [address] [place] [address] Referral ID Status Reason Start Date Expiration Date Visits Requested Visits Authorized [id number] Authorized PCP Requested Referral 06/03/2022 06/03/2023 1 1 Specialty Diagnoses / Procedures Referred By Contac t Referred To Contact XR IMAGING Diagnoses Chronic pain of left knee Arthritis of both knees Laxity of knee joint, left Procedures XR KNEE LIMITED 2V AP/LAT LEFT RADIOLOGIC EXAMINATION KNEE 1/2 VIEWS Deonte Hamm MD [address] [place] [address] Xr Imaging Referral ID Status Reason Start Date Expiration Date V isits Requested Visits Authorized [id number] Closed Auto-Generate d Referral 06/03/2022 07/03/2023 1 1 Chief Complaint and Reason for Visit Chief Complaint Admit Date ABN ECHO (SELF) May 25, 2024 10: 25am ECTOPIC BEATS June 13, 2024 10:30a m Reason for Visit Admit Date Diabetes May 25, 2024 10: 25am Dyslipidemia May 25, 2024 10: 25am Ectopic beats May 25, 2024 10: 25am 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, 2024 10:25am Hypertension May 25, 2024 10: 25am Chief Complaint Admit Date ABN ECHO (SELF) May 25, 2024 10: 25am ECTOPIC BEATS June 13, 2024 10:30a m ECTOPIC BEATS June 13, 2024 10:51a m N/V, POOR PO June 26, 2024 5:57p m Reason for Visit Admit Date Diabetes May 25, 2024 10: 25am Dyslipidemia May 25, 2024 10: 25am Ectopic beats May 25, 2024 10: 25am 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, 2024 10:25am Hypertension May 25, 2024 10: 25am Acidosis, lactic June 26, 2024 5:57p m Constipation June 26, 2024 5:57p m Type 2 GA (myocardial infarction) June 262024 5:57pm Chief Complaint Admit Date ABN ECHO (SELF) May 25, 2024 10: 25am ECTOPIC BEATS June 13, 2024 10:30a m ECTOPIC BEATS June 13, 2024 10:51a m N/V, POOR PO June 26, 2024 5:57p m N/V, POOR PO June 27, 2024 7:39a m N/V, POOR PO June 27, 2024 11:04 am N/V, POOR PO June 28, 2024 4:38p m N/V, POOR PO June 29, 2024 8:23a m S/P [facility] 06/29July 06, 2024 1:43p m Reason for Visit Admit Date Diabetes May 25, 2024 10: 25am Dyslipidemia May 25, 2024 10: 25am Ectopic beats May 25, 2024 10: 25am 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, 2024 10:25am Hypertension May 25, 2024 10: 25am Acidosis, lactic June 26, 2024 5:57p m Adverse drug reaction June 26, 2024 5:5 7pm Constipation June 26, 2024 5:57p m 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 26, 2024 5:57p m Nausea and vomiting June 26, 2024 5:57p m Toxic metabolic encephalopathy June 26, 2024 5:57pm Type 2 GA (myocardial infarction) June 262024 5:57pm Diabetes July 06, 2024 1:43p m Dyslipidemia July 06, 2024 1:43p m Ectopic beats July 06, 2024 1:43p m HOCM (hypertrophic obstructive cardiomyo valerio) July 06, 2024 1:43pm Hypertension July 06, 2024 1:43p m Family History Relationship Condition Age at Onset Recorded Date/T carol mother Gastric ulcer Unknown father Coronary artery disease Unknown Pulmonary emphysema Unknown grandmother Diabetes mellitus Unknown aunt Diabetes mellitus Unknown uncle Diabetes mellitus Unknown Summary Purpose Additional Source Comments Source Comments (unrecognize d section and content) In the event this informatio n is protected by the Federal Confidentiality of Alcohol and Drug Abuse Patient Records regulations: The Federal rules restrict any use of the information to criminally investigate or prosecute any alcohol or drug abuse patient.[facility] event this information is protected by the Federal Confidentiality of Alcohol and Drug Abuse Patient Records regulations: The Federal rules restrict any use of the information to criminally investigate or prosecute any alcohol or drug abuse patient.[facility] the event this information is protected by the Federal Confidentiality of Alcohol and Drug Abuse Patient Records regulations: The Federal rules restrict any use of the information to criminally investigate or prosecute any alcohol or drug abuse patient.[facility] the event this information is protected by the Federal Confidentiality of Alcohol and Drug Abuse Patient Records regulations: The Federal rules restrict any use of the information to criminally investigate or prosecute any alcohol or drug abuse patient.[facility] the event this information is protected by the Federal Confidentiality of Alcohol and Drug Abuse Patient Records regulations: The Federal rules restrict any use of the information to criminally investigate or prosecute any alcohol or drug abuse patient.[facility] the event this information is protected by the Federal Confidentiality of Alcohol and Drug Abuse Patient Records regulations: The Federal rules restrict any use of the information to criminally investigate or prosecute any alcohol or drug abuse patient.[facility] the event this information is protected by the Federal Confidentiality of Alcohol and Drug Abuse Patient Records regulations: The Federal rules restrict any use of the information to criminally investigate or prosecute any alcohol or drug abuse patient.[facility] the event this information is protected by the Federal Confidentiality of Alcohol and Drug Abuse Patient Records regulations: The Federal rules restrict any use of the information to criminally investigate or prosecute any alcohol or drug abuse patient.[facility] the event this information is protected by the Federal Confidentiality of Alcohol and Drug Abuse Patient Records regulations: The Federal rules restrict any use of the information to criminally investigate or prosecute any alcohol or drug abuse patient.[facility] the event this information is protected by the Federal Confidentiality of Alcohol and Drug Abuse Patient Records regulations: The Federal rules restrict any use of the information to criminally investigate or prosecute any alcohol or drug abuse patient.[facility] the event this information is protected by the Federal Confidentiality of Alcohol and Drug Abuse Patient Records regulations: The Federal rules restrict any use of the information to criminally investigate or prosecute any alcohol or drug abuse patient.[facility] the event this information is protected by the Federal Confidentiality of Alcohol and Drug Abuse Patient Records regulations: The Federal rules restrict any use of the information to criminally investigate or prosecute any alcohol or drug abuse patient.[facility] the event this information is protected by the Federal Confidentiality of Alcohol and Drug Abuse Patient Records regulations: The Federal rules restrict any use of the information to criminally investigate or prosecute any alcohol or drug abuse patient.[facility] the event this information is protected by the Federal Confidentiality of Alcohol and Drug Abuse Patient Records regulations: The Federal rules restrict any use of the information to criminally investigate or prosecute any alcohol or drug abuse patient.[facility] the event this information is protected by the Federal Confidentiality of Alcohol and Drug Abuse Patient Records regulations: The Federal rules restrict any use of the information to criminally investigate or prosecute any alcohol or drug abuse patient.[facility] the event this information is protected by the Federal Confidentiality of Alcohol and Drug Abuse Patient Records regulations: The Federal rules restrict any use of the information to criminally investigate or prosecute any alcohol or drug abuse patient.[facility] the event this information is protected by the Federal Confidentiality of Alcohol and Drug Abuse Patient Records regulations: The Federal rules restrict any use of the information to criminally investigate or prosecute any alcohol or drug abuse patient.[facility] the event this information is protected by the Federal Confidentiality of Alcohol and Drug Abuse Patient Records regulations: The Federal rules restrict any use of the information to criminally investigate or prosecute any alcohol or drug abuse patient.[facility] the event this information is protected by the Federal Confidentiality of Alcohol and Drug Abuse Patient Records regulations: The Federal rules restrict any use of the information to criminally investigate or prosecute any alcohol or drug abuse patient.[facility] the event this information is protected by the Federal Confidentiality of Alcohol and Drug Abuse Patient Records regulations: The Federal rules restrict any use of the information to criminally investigate or prosecute any alcohol or drug abuse patient.[facility] the event this information is protected by the Federal Confidentiality of Alcohol and Drug Abuse Patient Records regulations: The Federal rules restrict any use of the information to criminally investigate or prosecute any alcohol or drug abuse patient.[facility] HospitalIn the event this information is protected by the Federal Confidentiality of Alcohol and Drug Abuse Patient Records regulations: The Federal rules restrict any use of the information to criminally investigate or prosecute any alcohol or drug abuse patient.[facility] HospitalIn the event this information is protected by the Federal Confidentiality of Alcohol and Drug Abuse Patient Records regulations: The Federal rules restrict any use of the information to criminally investigate or prosecute any alcohol or drug abuse patient.[facility] HospitalIn the event this information is protected by the Federal Confidentiality of Alcohol and Drug Abuse Patient Records regulations: The Federal rules restrict any use of the information to criminally investigate or prosecute any alcohol or drug abuse patient.[facility] HospitalIn the event this information is protected by the Federal Confidentiality of Alcohol and Drug Abuse Patient Records regulations: The Federal rules restrict any use of the information to criminally investigate or prosecute any alcohol or drug abuse patient.[facility] HospitalIn the event this information is protected by the Federal Confidentiality of Alcohol and Drug Abuse Patient Records regulations: The Federal rules restrict any use of the information to criminally investigate or prosecute any alcohol or drug abuse patient.[facility] HospitalIn the event this information is protected by the Federal Confidentiality of Alcohol and Drug Abuse Patient Records regulations: The Federal rules restrict any use of the information to criminally investigate or prosecute any alcohol or drug abuse patient.[facility] HospitalIn the event this information is protected by the Federal Confidentiality of Alcohol and Drug Abuse Patient Records regulations: The Federal rules restrict any use of the information to criminally investigate or prosecute any alcohol or drug abuse patient.[facility] HospitalIn the event this information is protected by the Federal Confidentiality of Alcohol and Drug Abuse Patient Records regulations: The Federal rules restrict any use of the information to criminally investigate or prosecute any alcohol or drug abuse patient.[facility] HospitalIn the event this information is protected by the Federal Confidentiality of Alcohol and Drug Abuse Patient Records regulations: The Federal rules restrict any use of the information to criminally investigate or prosecute any alcohol or drug abuse patient.[facility] HospitalIn the event this information is protected by the Federal Confidentiality of Alcohol and Drug Abuse Patient Records regulations: The Federal rules restrict any use of the information to criminally investigate or prosecute any alcohol or drug abuse patient.[facility] HospitalIn the event this information is protected by the Federal Confidentiality of Alcohol and Drug Abuse Patient Records regulations: The Federal rules restrict any use of the information to criminally investigate or prosecute any alcohol or drug abuse patient.[facility] HospitalIn the event this information is protected by the Federal Confidentiality of Alcohol and Drug Abuse Patient Records regulations: The Federal rules restrict any use of the information to criminally investigate or prosecute any alcohol or drug abuse patient.[facility] HospitalIn the event this information is protected by the Federal Confidentiality of Alcohol and Drug Abuse Patient Records regulations: The Federal rules restrict any use of the information to criminally investigate or prosecute any alcohol or drug abuse patient.[facility] HospitalIn the event this information is protected by the Federal Confidentiality of Alcohol and Drug Abuse Patient Records regulations: The Federal rules restrict any use of the information to criminally investigate or prosecute any alcohol or drug abuse patient.[facility] HospitalIn the event this information is protected by the Federal Confidentiality of Alcohol and Drug Abuse Patient Records regulations: The Federal rules restrict any use of the information to criminally investigate or prosecute any alcohol or drug abuse patient.[facility] HospitalIn the event this information is protected by the Federal Confidentiality of Alcohol and Drug Abuse Patient Records regulations: The Federal rules restrict any use of the information to criminally investigate or prosecute any alcohol or drug abuse patient.[facility] HospitalIn the event this information is protected by the Federal Confidentiality of Alcohol and Drug Abuse Patient Records regulations: The Federal rules restrict any use of the information to criminally investigate or prosecute any alcohol or drug abuse patient.[facility] HospitalIn the event this information is protected by the Federal Confidentiality of Alcohol and Drug Abuse Patient Records regulations: The Federal rules restrict any use of the information to criminally investigate or prosecute any alcohol or drug abuse patient.[facility] HospitalIn the event this information is protected by the Federal Confidentiality of Alcohol and Drug Abuse Patient Records regulations: The Federal rules restrict any use of the information to criminally investigate or prosecute any alcohol or drug abuse patient.[facility] HospitalIn the event this information is protected by the Federal Confidentiality of Alcohol and Drug Abuse Patient Records regulations: The Federal rules restrict any use of the information to criminally investigate or prosecute any alcohol or drug abuse patient.[facility] HospitalIn the event this information is protected by the Federal Confidentiality of Alcohol and Drug Abuse Patient Records regulations: The Federal rules restrict any use of the information to criminally investigate or prosecute any alcohol or drug abuse patient.[facility] HospitalIn the event this information is protected by the Federal Confidentiality of Alcohol and Drug Abuse Patient Records regulations: The Federal rules restrict any use of the information to criminally investigate or prosecute any alcohol or drug abuse patient.[facility] HospitalIn the event this information is protected by the Federal Confidentiality of Alcohol and Drug Abuse Patient Records regulations: The Federal rules restrict any use of the information to criminally investigate or prosecute any alcohol or drug abuse patient.[facility] HospitalIn the event this information is protected by the Federal Confidentiality of Alcohol and Drug Abuse Patient Records regulations: The Federal rules restrict any use of the information to criminally investigate or prosecute any alcohol or drug abuse patient.[facility] HospitalIn the event this information is protected by the Federal Confidentiality of Alcohol and Drug Abuse Patient Records regulations: The Federal rules restrict any use of the information to criminally investigate or prosecute any alcohol or drug abuse patient.[facility] HospitalIn the event this information is protected by the Federal Confidentiality of Alcohol and Drug Abuse Patient Records regulations: The Federal rules restrict any use of the information to criminally investigate or prosecute any alcohol or drug abuse patient.[facility] HospitalIn the event this information is protected by the Federal Confidentiality of Alcohol and Drug Abuse Patient Records regulations: The Federal rules restrict any use of the information to criminally investigate or prosecute any alcohol or drug abuse patient.[facility] HospitalIn the event this information is protected by the Federal Confidentiality of Alcohol and Drug Abuse Patient Records regulations: The Federal rules restrict any use of the information to criminally investigate or prosecute any alcohol or drug abuse patient.[facility] HospitalIn the event this information is protected by the Federal Confidentiality of Alcohol and Drug Abuse Patient Records regulations: The Federal rules restrict any use of the information to criminally investigate or prosecute any alcohol or drug abuse patient.[facility] HospitalIn the event this information is protected by the Federal Confidentiality of Alcohol and Drug Abuse Patient Records regulations: The Federal rules restrict any use of the information to criminally investigate or prosecute any alcohol or drug abuse patient.[facility] HospitalIn the event this information is protected by the Federal Confidentiality of Alcohol and Drug Abuse Patient Records regulations: The Federal rules restrict any use of the information to criminally investigate or prosecute any alcohol or drug abuse patient.[facility] HospitalIn the event this information is protected by the Federal Confidentiality of Alcohol and Drug Abuse Patient Records regulations: The Federal rules restrict any use of the information to criminally investigate or prosecute any alcohol or drug abuse patient.[facility] HospitalIn the event this information is protected by the Federal Confidentiality of Alcohol and Drug Abuse Patient Records regulations: The Federal rules restrict any use of the information to criminally investigate or prosecute any alcohol or drug abuse patient.[facility] HospitalIn the event this information is protected by the Federal Confidentiality of Alcohol and Drug Abuse Patient Records regulations: The Federal rules restrict any use of the information to criminally investigate or prosecute any alcohol or drug abuse patient.[facility] HospitalIn the event this information is protected by the Federal Confidentiality of Alcohol and Drug Abuse Patient Records regulations: The Federal rules restrict any use of the information to criminally investigate or prosecute any alcohol or drug abuse patient.[facility] the event this information is protected by the Federal Confidentiality of Alcohol and Drug Abuse Patient Records regulations: The Federal rules restrict any use of the information to criminally investigate or prosecute any alcohol or drug abuse patient.[facility] HospitalIn the event this information is protected by the Federal Confidentiality of Alcohol and Drug Abuse Patient Records regulations: The Federal rules restrict any use of the information to criminally investigate or prosecute any alcohol or drug abuse patient.[facility] HospitalIn the event this information is protected by the Federal Confidentiality of Alcohol and Drug Abuse Patient Records regulations: The Federal rules restrict any use of the information to criminally investigate or prosecute any alcohol or drug abuse patient.[facility]In the event this information is protected by the Federal Confidentiality of Alcohol and Drug Abuse Patient Records regulations: The Federal rules restrict any use of the information to criminally investigate or prosecute any alcohol or drug abuse patient.[facility] HospitalIn the event this information is protected by the Federal Confidentiality of Alcohol and Drug Abuse Patient Records regulations: The Federal rules restrict any use of the information to criminally investigate or prosecute any alcohol or drug abuse patient.[facility] HospitalIn the event this information is protected by the Federal Confidentiality of Alcohol and Drug Abuse Patient Records regulations: The Federal rules restrict any use of the information to criminally investigate or prosecute any alcohol or drug abuse patient.[facility] HospitalIn the event this information is protected by the Federal Confidentiality of Alcohol and Drug Abuse Patient Records regulations: The Federal rules restrict any use of the information to criminally investigate or prosecute any alcohol or drug abuse patient.[facility] HospitalIn the event this information is protected by the Federal Confidentiality of Alcohol and Drug Abuse Patient Records regulations: The Federal rules restrict any use of the information to criminally investigate or prosecute any alcohol or drug abuse patient.[facility] Reason for Visit (unrecogniz ed section and content) Reason Comments Refill question Lab Orders Reason Comments Orders Lab work Reason Onset Date Comments Refill Request 07/18/2021 Reason Comments Orders Reason Onset Date Comments 6 Month Exam Immunizations 11/19/2021 Flu vaccination Reason Comments Refill Request Reason Onset Date Comments Refill Request 01/29/2022 Reason Comments Left Knee Pain Reason Comments Patient Question Orders Reason Comments Patient Request Reason Onset Date Comments Refill Request 07/22/2022 Reason Comments Mammogram Order Reason Comments 6 mo DM check up Reason Onset Date Comments Refill Request 01/16/2023 Reason Onset Date Comments Refill Request 05/01/2023 Reason Comments F/U 6 Month Reason Comments Results Reason Comments Results Patient Question Reason Onset Date Comments Refill Request 07/15/2023 Reason Comments Orders Reason Comments Follow Up 6 month Reason Onset Date Comments Refill Request 01/17/2024 Reason Onset Date Comments Refill Request 04/13/2024 Reason Onset Date Comments Results 04/18/2024 Reason Comments Patient Question Reason Onset Date Comments Results 04/18/2024 Reason Comments Fatigue appetite changes Reason Comments Results, Lab Reason Onset Date Comments Results 04/26/2024 Reason Comments Constipation Reason Comments Rectal Problem Constipation Reason Onset Date Comments Results 04/27/2024 Reason Onset Date Comments Results 04/28/2024 Reason Comments F/U 6 months Reason Comments Nausea Had episodes of vomi ting last week Fatigue Reason Comments Patient Update Hospital F/U Reason Onset Date Comments Transition Of Care 06/30/2024 Reason Comments ED Follow-up [facility] 06/26/24-06/29/24- weakness, nausea, bowel issues Reason Comments Patient Update Patient Question Reason Comments Rectal Pain Reason Onset Date Comments Refill Request 07/26/2024 Reason Comments Nausea Reason Comments Follow Up Reason Comments requesting verbal order for skilled nurs ing Reason Comments Home Care Management for physical therap y Reason Onset Date Comments Refill Request 08/23/2024 Reason Comments extending skilled nurse visits Reason Onset Date Comments Results 07/06/2024 Care Teams (unrecognized sec tion and content) Animal Care Giver Relationship Specialty Start Date End Date Tomi Vasquez III, MD [place] [facility] PCP - General 11/29/01 10/22/20 Deonte Hamm MD [address] [facility] [place] [place] [address] PCP - General Family Practice 10/23/20 Animal Care Giver Relationship Specialty Start Date End Date Deonte Hamm MD [address] [facility] [place] [address] PCP - General Family Practice 10/23/20 Animal Care Giver Relationship Specialty Start Date End Date Deonte Hamm MD [address] [facility] [place] [address] PCP - General Family Practice 10/23/20 Animal Care Giver Relationship Specialty Start Date End Date Deonte Hamm MD [address] [facility] [place] [address] PCP - General Family Practice 10/23/20 Animal Care Giver Relationship Specialty Start Date End Date Deonte Hamm MD [address] [facility] [place] [address] PCP - General Family Practice 10/23/20 Animal Care Giver Relationship Specialty Start Date End Date Deonte Hamm MD [address] [facility] [place] [address] PCP - General Family Medicine 10/23/20 Animal Care Giver Relationship Specialty Start Date End Date Deonte Hamm MD [address] [facility] [place] [address] PCP - General Family Medicine 10/23/20 Animal Care Giver Relationship Specialty Start Date End Date Deonte Hamm MD [address] [place] [address] PCP - General Family Medicine 10/23/20 Animal Care Giver Relationship Specialty Start Date End Date Deonte Hamm MD [address] [place] [address] PCP - General Family Medicine 10/23/20 Animal Care Giver Relationship Specialty Start Date End Date Deonte Hamm MD [address] [place] [address] PCP - General Family Medicine 10/23/20 Animal Care Giver Relationship Specialty Start Date End Date Deonte Hamm MD [address] [place] [address] PCP - General Family Medicine 10/23/20 Animal Care Giver Relationship Specialty Start Date End Date Deonte Hamm MD [address] [place] [address] PCP - General Family Medicine 10/23/20 Animal Care Giver Relationship Specialty Start Date End Date Deonte Hamm MD [address] [place] [address] PCP - General Family Medicine 10/23/20 Animal Care Giver Relationship Specialty Start Date End Date Deonte Hamm MD [address] [place] [address] PCP - General Family Medicine 10/23/20 Animal Care Giver Relationship Specialty Start Date End Date Deonte Hamm MD [address] [place] [address] PCP - General Family Medicine 10/23/20 Deonte Rose [address] [facility] [place] [place] [facility] [place] [address] Physician Ophthalmology 11/25/22 Animal Care Giver Relationship Specialty Start Date End Date Deonte Hamm MD [address] [facility] [place] [place] [address] PCP - General Family Medicine 10/23/20 Animal Care Giver Relationship Specialty Start Date End Date Deonte Hamm MD [address] [place] [address] PCP - General Family Medicine 10/23/20 Deonte Rose [address] [facility] [place] [place] [address] Physician Ophthalmology 11/25/22 Animal Care Giver Relationship Specialty Start Date End Date Deonte Hamm MD [address] [place] [address] PCP - General Family Medicine 10/23/20 Deonte Rose [address] [facility] [place] [place] [address] Physician Ophthalmology 11/25/22 Animal Care Giver Relationship Specialty Start Date End Date Deonte Hamm MD [address] [place] [address] PCP - General Family Medicine 10/23/20 Deonte Rose MD [address] [place] [address] Physician Ophthalmology 11/25/22 Animal Care Giver Relationship Specialty Start Date End Date Deonte Hamm MD [address] [place] [address] PCP - General Family Medicine 10/23/20 Deonte Rose MD [address] [place] [address] Physician Ophthalmology 11/25/22 Animal Care Giver Relationship Specialty Start Date End Date Deonte Hamm MD [address] [place] [address] PCP - General Family Medicine 10/23/20 Deonte Rose MD [address] [place] [address] Physician Ophthalmology 11/25/22 Animal Care Giver Relationship Specialty Start Date End Date Deonte Hamm MD [address] [place] [address] PCP - General Family Medicine 10/23/20 Animal Care Giver Relationship Specialty Start Date End Date Deonte Hamm MD [address] [place] [address] PCP - General Family Medicine 10/23/20 Deonte Rose MD [address] [place] [address] Physician Ophthalmology 11/25/22 Animal Care Giver Relationship Specialty Start Date End Date Deonte Hamm MD [address] [place] [address] PCP - General Family Medicine 10/23/20 Deonte Rose MD [address] [place] [address] Physician Ophthalmology 11/25/22 Animal Care Giver Relationship Specialty Start Date End Date Deonte Hamm MD [address] [place] [address] PCP - General Family Medicine 10/23/20 Deonte Rose MD [address] [place] [address] Physician Ophthalmology 11/25/22 Animal Care Giver Relationship Specialty Start Date End Date Deonte Hamm MD [address] [place] [address] PCP - General Family Medicine 10/23/20 Deonte Rose MD [address] [place] [address] Physician Ophthalmology 11/25/22 Podlogar, Tonya, SMALL ENGINE TRAINER.CARD DOFFER [address] [place] [address] Machine Lead Burner Family Medicine 01/15/24 Animal Care Giver Relationship Specialty Start Date End Date Deonte Hamm MD [address] [place] [address] PCP - General Family Medicine 10/23/20 Deonte Rose MD [address] [facility] [address] Physician Ophthalmology 11/25/22 Podlogar, Tonya, SMALL ENGINE TRAINER.CARD DOFFER [address] [place] [address] Machine Lead Burner Family Medicine 01/15/24 Animal Care Giver Relationship Specialty Start Date End Date Deonte Hamm MD [address] [place] [address] PCP - General Family Medicine 10/23/20 Deonte Rose MD [address] [facility] [address] Physician Ophthalmology 11/25/22 Podlogar, Tonya, SMALL ENGINE TRAINER.CARD DOFFER [address] [place] [address] Machine Lead Burner Family Medicine 01/15/24 Animal Care Giver Relationship Specialty Start Date End Date Deonte Hamm MD [address] [place] [address] PCP - General Family Medicine 10/23/20 Deonte Rose MD [address] [facility] [place] [place] [address] Physician Ophthalmology 11/25/22 Podlogar, Tonya SMALL ENGINE TRAINER.CARD DOFFER [address] [facility] [place] [place] [address] Machine Lead Burner Family Medicine 01/15/24 Animal Care Giver Relationship Specialty Start Date End Date Deonte Hamm MD [address] [facility] [place] [address] PCP - General Family Medicine 10/23/20 Deonte Rose MD [address] [facility] [place] [place] [address] Physician Ophthalmology 11/25/22 Podlogar, Tonya SMALL ENGINE TRAINER.CARD DOFFER [address] [facility] [place] [address] Machine Lead Burner Family Medicine 01/15/24 Animal Care Giver Relationship Specialty Start Date End Date Deonte Hamm MD [address] [facility] [place] [address] PCP - General Family Medicine 10/23/20 Deonte Rose MD [address] [facility] [place] [address] Physician Ophthalmology 11/25/22 Podlogar, Tonya SMALL ENGINE TRAINER.CARD DOFFER [address] [facility] [place] [address] Machine Lead Burner Family Medicine 01/15/24 Liliana Freeman SMALL ENGINE TRAINER.CARD DOFFER [address] [facility] [place] [address] Machine Lead Burner Family Medicine 04/21/24 Animal Care Giver Relationship Specialty Start Date End Date Deonte Hamm MD [address] [facility] [place] [address] PCP - General Family Medicine 10/23/20 Deonte Rose MD [address] [facility] [place] [address] Physician Ophthalmology 11/25/22 PodlogarTonya APRN.CARD DOFFER [address] [facility] [place] [address] Machine Lead Burner Family Medicine 01/15/24 Liliana Freeman APRN.CARD DOFFER [address] [facility] [place] [address] Machine Lead Burner Family Medicine 04/21/24 Animal Care Giver Relationship Specialty Start Date End Date Deonte Hamm MD [address] [facility] [place] [address] PCP - General Family Medicine 10/23/20 Deonte Rose MD [address] [facility] [place] [place] [address] Physician Ophthalmology 11/25/22 Podlogar, Tonya, SMALL ENGINE TRAINER.CARD DOFFER [address] [facility] [place] [address] Machine Lead Burner Family Medicine 01/15/24 Liliana Freeman APRN.CARD DOFFER [address] [facility] [place] [address] Machine Lead Burner Family Medicine 04/21/24 Animal Care Giver Relationship Specialty Start Date End Date Deonte Hamm MD [address] [facility] [place] [address] PCP - General Family Medicine 10/23/20 Deonte Rose MD [address] [facility] [place] [address] Physician Ophthalmology 11/25/22 Podlogar, NORMA Castaneda.CARD DOFFER [address] [facility] [place] [address] Machine Lead Burner Family Medicine 01/15/24 Liliana Freeman APRN.CARD DOFFER [address] [facility] [place] [address] Machine Lead Burner Family Medicine 04/21/24 Animal Care Giver Relationship Specialty Start Date End Date Deonte Hmam MD [address] [facility] [place] [address] PCP - General Family Medicine 10/23/20 Deonte Rose MD [address] [facility] [place] [address] Physician Ophthalmology 11/25/22 Podlogar, Tonya SMALL ENGINE TRAINER.CARD DOFFER [address] [facility] [place] [address] Machine Lead Burner Family Medicine 01/15/24 Liliana Freeman SMALL ENGINE TRAINER.CARD DOFFER [address] [facility] [place] [address] Machine Lead Burner Family [facility] 04/21/24 Animal Care Giver Relationship Specialty Start Date End Date Deonte Hamm MD [address] [facility] [place] [address] PCP - General Family Medicine 10/23/20 Deonte Rose MD [address] [facility] [place] [address] Physician Ophthalmology 11/25/22 Podlogar, Tonya, SMALL ENGINE TRAINER.CARD DOFFER [address] [facility] [place] [place] [address] Machine [facility] Family Medicine 01/15/24 Liliana Freeman APRN.CARD DOFFER [address] [facility] [place] [address] [facility] 04/21/24 Animal Care Giver Relationship Specialty Start Date End Date Deonte Hamm MD [address] [facility] [place] [place] [address] PCP - General Family Medicine 10/23/20 Deonte Rose MD [address] [facility] [place] [place] [address] Physician Ophthalmology 11/25/22 Podlogar, Tonya SMALL ENGINE TRAINER.CARD DOFFER [address] [facility] [place] [place] [address] [facility] 01/15/24 Liliana Freeman APRN.CARD DOFFER [address] [facility] [place] [address] Machine [facility] Family [facility] 05/01/24 Animal Care Giver Relationship Specialty Start Date End Date Deonte Hamm MD [address] [facility] [place] [place] [address] PCP - General Family Medicine 10/23/20 Deonte Rose MD [address] [facility] [place] [place] [address] Physician Ophthalmology 11/25/22 Podlogar, Tonya SMALL ENGINE TRAINER.CARD DOFFER [address] [facility] [place] [place] [address] Machine Lead [facility] Family [facility] 01/15/24 Liliana Freeman SMALL ENGINE TRAINER.CARD DOFFER [address] [facility] [place] [address] Machine [facility] Family [facility] 05/01/24 Animal Care Giver Relationship Specialty Start Date End Date Deonte Hamm MD [address] [facility] [place] [place] [address] PCP - General Family Medicine 10/23/20 Deonte Rose MD [address] [facility] [place] [place] [address] Physician Ophthalmology 11/25/22 Podlogar, TonyaNORMA patten.CARD DOFFER [address] [facility] [place] [address] [facility] 01/15/24 Liliana Freeman APRN.CARD DOFFER [address] [place], [place] [address] [facility] 05/01/24 Team Status: Active Member Role Status Dates Dr. Adrian Hamm MD Primary Care Provider Acti ve Team Status: Inactive Member Role Status Dates Dr. Adrian Hamm MD Primary Care Provider Acti ve Start: May 25, 2024 End: May 25, 2024 Dr. Adrian Hamm MD Referring Provider Active Start: May 25, 2024 End: May 25, 2024 Dr. Kaveh Donnelly MD Attending Provider Active Start: May 25, 2024 End: May 25, 2024 Team Status: Inactive Member Role Status Dates Dr. Adrian Hamm MD Primary Care Provider Acti ve Start: June 13, 2024 End: June 13, 2024 Dr. Kaveh Donnelly MD Attending Provider Active Start: June 13, 2024 End: June 13, 2024 Dr. Kaveh Donnelly MD Referring Provider Active Start: June 13, 2024 End: June 13, 2024 Animal Care Giver Relationship Specialty Start Date End Date Deonte Hamm MD [address] [place] [address] PCP - General Family Medicine 10/23/20 Deonte Rose MD [address] [facility] [place] [place] [address] Physician Ophthalmology 11/25/22 PodlogarTonya APRN.CARD DOFFER [address] [facility] [place], [place] [address] [facility] 01/15/24 Liliana Freeman APRN.CARD DOFFER [address] [place], [place] [address] [facility] 05/01/24 Team Status: Active Member Role Status Dates Dr. Adrian Hamm MD Primary Care Provider Acti ve Start: June 13, 2024 Dr. Kaveh Donnelly MD Attending Provider Active Start: June 13, 2024 Dr. Kaveh Donnelly MD Referring Provider Active Start: June 13, 2024 Team Status: Active Member Role Status Dates Dr. Adrian Hamm MD Primary Care Provider Acti ve Start: June 26, 2024 Dr. Jordy Mireles DO Emergency Provider Active Start: June 26, 2024 Dr. Velma Vazquez MD Admit Provider Active Star t: June 26, 2024 Dr. Velma Vazquez MD Attending Provider Active Start: June 26, 2024 Animal Care Giver Relationship Specialty Start Date End Date Deonte Hamm MD [address] [facility] [place] [address] PCP - General Family Medicine 10/23/20 Deonte Rose MD [address] [facility] [place] [place] [address] Physician Ophthalmology 11/25/22 PodlogarTonya APRN.CARD DOFFER [address] [facility] [place] [address] [facility] 01/15/24 Team Status: Inactive Member Role Status Dates Dr. Adrian Hamm MD Primary Care Provider Acti ve Start: June 26, 2024 End: June 29, 2024 Dr. Jordy Mireles DO Emergency Provider Active Start: June 26, 2024 End: June 29, 2024 Dr. Velma Vazquez MD Admit Provider Active Star t: June 26, 2024 End: June 29, 2024 Dr. Velma Vazquez MD Other Provider Active Star t: June 26, 2024 End: June 29, 2024 Dr. Taiwo Topete MD Other Provider Active Start : June 26, 2024 End: June 29, 2024 Dr. Yumiko Grande DO Attending Provider Active S tart: June 26, 2024 End: June 29, 2024 Team Status: Active Member Role Status Dates Dr. Adrian Hamm MD Primary Care Provider Acti ve Start: June 27, 2024 Dr. Jordy Mireles , Emergency Provider Active Start: June 27, 2024 Dr. Velma Vazquez MD Admit Provider Active Star t: June 27, 2024 Dr. Velma Vazquez MD Other Provider Active Star t: June 27, 2024 Dr. Taiwo Topete MD Other Provider Active Start : June 27, 2024 Dr. Yumiko Grande , Attending Provider Active S tart: June 27, 2024 Dr. Yumiko Grande DO Other Provider Active Start : June 27, 2024 Team Status: Active Member Role Status Dates Dr. Adrian Hamm MD Primary Care Provider Acti ve Start: June 27, 2024 Dr. Andrey Lord MD Attending Provider Active S tart: June 27, 2024 Team Status: Active Member Role Status Dates Dr. Adrian Hamm MD Primary Care Provider Acti ve Start: June 27, 2024 Dr. Jordy Mireles DO Emergency Provider Active Start: June 27, 2024 Dr. Velma Vazquez MD Admit Provider Active Star t: June 27, 2024 Dr. Velma Vazquez MD Other Provider Active Star t: June 27, 2024 Dr. Taiwo Topete MD Other Provider Active Start : June 27, 2024 Dr. Yumiko Grande DO Referring Provider Active S tart: June 27, 2024 Dr. Yumiko Grande , Other Provider Active Start : June 27, 2024 JUSTIN Benson Attending Provider Active Star t: June 27, 2024 Team Status: Active Member Role Status Dates Dr. Adrain Hamm MD Primary Care Provider Acti ve Start: June 27, 2024 Dr. Taiwo Topete MD Attending Provider Active S tart: June 27, 2024 JUSTIN Benson Referring Provider Active Star t: June 27, 2024 Team Status: Active Member Role Status Dates Dr. Adrian Hamm MD Primary Care Provider Acti ve Start: June 28, 2024 Dr. Jordy Mireles DO Emergency Provider Active Start: June 28, 2024 Dr. Velma Vazquez MD Admit Provider Active Star t: June 28, 2024 Dr. Velma Vazquez MD Other Provider Active Star t: June 28, 2024 Dr. Taiwo Topete MD Other Provider Active Start : June 28, 2024 Dr. Yumiko Grande , DO Attending Provider Active S tart: June 28, 2024 Dr. Yumiko Grande , DO Other Provider Active Start : June 28, 2024 Team Status: Active Member Role Status Dates Dr. Adrian Hamm MD Primary Care Provider Acti ve Start: June 29, 2024 Dr. Jordy Mireles , Emergency Provider Active Start: June 29, 2024 Dr. Velma Vazquez MD Admit Provider Active Star t: June 29, 2024 Dr. Velma Vazquez MD Other Provider Active Star t: June 29, 2024 Dr. Taiwo Topete MD Other Provider Active Start : June 29, 2024 Dr. Yumiko Grande , Attending Provider Active S tart: June 29, 2024 Dr. Yumiko Grande DO Other Provider Active Start : June 29, 2024 Team Status: Inactive Member Role Status Dates Dr. Adrian Hamm MD Primary Care Provider Acti ve Start: July 06, 2024 End: July 06, 2024 Dr. Adrian Hamm MD Referring Provider Active Start: July 06, 2024 End: July 06, 2024 Britney Torres GRAIN I FARMWORKER, GRAIN I FARMWORKER-C Attending Provider Active Start: July 06, 2024 End: July 06, 2024 Animal Care Giver Relationship Specialty Start Date End Date Deonte Hamm MD [address] [place] [address] PCP - General Family Medicine 10/23/20 Deonte Rose MD [address] [place] [address] Physician Ophthalmology 11/25/22 PodlogarTonya APRN.CARD DOFFER [address] [place], [place] [address] Machine [facility]er [facility] 01/15/24 Animal Care Giver Relationship Specialty Start Date End Date Deonte Hamm MD [address] [place], [place] [address] PCP - General Family Medicine 10/23/20 Deonte Rose MD [address] [facility] [place] [address] Physician Ophthalmology 11/25/22 Podlogtamiko, Tonya SMALL ENGINE TRAINER.CARD DOFFER [address] [facility] [place] [place] [address] Machine Lead Burner Family [facility] 01/15/24 Animal Care Giver Relationship Specialty Start Date End Date Deonte Hamm MD [address] [facility] [place] [address] PCP - General Family Medicine 10/23/20 Deonte Rose MD [address] [facility] [place] [place] [address] Physician Ophthalmology 11/25/22 Podlogar, Tonya, SMALL ENGINE TRAINER.CARD DOFFER [address] [facility] [place] [address] Machine Lead Burner Family Medicine 01/15/24 Liliana Freeman SMALL ENGINE TRAINER.CARD DOFFER [address] [facility] [place] [address] Machine Lead Burner Family Medicine 05/01/24 06/25/24 Animal Care Giver Relationship Specialty Start Date End Date Deonte Hamm MD [address] [facility] [place] [place] [address] PCP - General Family Medicine 10/23/20 Deonte Rose MD [address] [facility] [place] [place] [address] Physician Ophthalmology 11/25/22 PodlogarTonya, SMALL ENGINE TRAINER.CARD DOFFER [address] [facility] [place] [address] Machine Lead Burner Family [facility] 01/15/24 Animal Care Giver Relationship Specialty Start Date End Date Deonte Hamm MD [address] [facility] [place] [address] PCP - General Family Medicine 10/23/20 Deonte Rose MD [address] [facility] [place] [place] [address] Physician Ophthalmology 11/25/22 Podlogar, Tonya SMALL ENGINE TRAINER.CARD DOFFER [address] [facility] [place] [place] [address] Machine Lead Burner Family Medicine 01/15/24 Animal Care Giver Relationship Specialty Start Date End Date Deonte Hamm MD [address] [facility] [place] [place] [address] PCP - General Family Medicine 10/23/20 Deonte Rose MD [address] [facility] [place] [place] [address] Physician Ophthalmology 11/25/22 Podlogar, Tonya SMALL ENGINE TRAINER.CARD DOFFER [address] [facility] [place] [place] [address] Machine Lead Burner Family [facility] 01/15/24 Animal Care Giver Relationship Specialty Start Date End Date Deonte Hamm MD [address] [facility] [place] [place] [address] PCP - General Family Medicine 10/23/20 Deonte Rose MD [address] [facility] [place] [place] [address] Physician Ophthalmology 11/25/22 Podlogar, Tonya SMALL ENGINE TRAINER.CARD DOFFER [address] [facility] [place] [address] Machine Lead Burner Family Medicine 01/15/24 Liliana Freeman APRN.CARD DOFFER [address] [facility] [place] [address] Machine Lead Burner Family [facility] 07/20/24 Animal Care Giver Relationship Specialty Start Date End Date Deonte Hamm MD [address] [facility] [place] [place] [address] PCP - General Family Medicine 10/23/20 Deonte Rose MD [address] [facility] [place] [place] [address] Physician Ophthalmology 11/25/22 Podlogar, NORMA Castaneda.CARD DOFFER [address] [facility] [place] [address] Machine Lead Burner Family [facility] 01/15/24 Liliana Freeman APRN.CARD DOFFER [address] [facility] [place] [address] Machine Lead Burner Family [facility] 07/20/24 Animal Care Giver Relationship Specialty Start Date End Date Deonte Hamm MD [address] [facility] [place] [address] PCP - General Family Medicine 10/23/20 Deonte Rose MD [address] [facility] [place] [address] Physician Ophthalmology 11/25/22 Podlogar, NORMA Castaneda.CARD DOFFER [address] [facility] [place] [address] Machine Lead Burner Family Medicine 01/15/24 Liliana Freeman APRN.CARD DOFFER [address] [facility] [place] [address] Machine Lead Burner Family [facility] 07/20/24 Animal Care Giver Relationship Specialty Start Date End Date Deonte Hamm MD [address] [facility] [place] [address] PCP - General Family Medicine 10/23/20 Deonte Rose MD [address] [facility] [place] [place] [address] Physician Ophthalmology 11/25/22 PodTonya giles APRN.CARD DOFFER [address] [facility] [place] [address] Machine Lead Burner Family [facility] 01/15/24 Liliana Freeman APRN.CARD DOFFER [address] [facility] [place] [address] [facility] 07/20/24 Animal Care Giver Relationship Specialty Start Date End Date Deonte Hamm MD [address] [facility] [place] [place] [address] PCP - General Family Medicine 10/23/20 Deonte Rose MD [address] [facility] [place] [place] [address] Physician Ophthalmology 11/25/22 PodlogarTonya APRN.CARD DOFFER [address] [facility] [place] [address] [facility] 01/15/24 Liliana Freeman APRN.CARD DOFFER [address] [facility] [place] [address] [facility] 07/20/24 Animal Care Giver Relationship Specialty Start Date End Date Deonte Hamm MD [address] [facility] [place] [place] [address] PCP - General Family Medicine 10/23/20 Deonte Rose MD [address] [facility] [place] [address] Physician Ophthalmology 11/25/22 PodlogarTonya APRN.CARD DOFFER [address] [facility] [place] [address] [facility] Family Medicine 01/15/24 Liliana Freeman APRN.CARD DOFFER [address] [facility] [place], [place] [id number] [facility] 07/20/24 Animal Care Giver Relationship Specialty Start Date End Date Deonte Hamm MD [address] [place] [address] PCP - General Family Medicine 10/23/20 Deonte Rose MD [address] [place] [address] Physician Ophthalmology 11/25/22 PodlogarTonya APRN.CARD DOFFER [address] [place], [place] [address] [facility] 01/15/24 Liliana Freeman APRN.CARD DOFFER [address] [place], [place] [id number] [facility] 07/20/24 Goals (unrecognized section and content) Goals may be documented in a n alternate sectionGoals may be documented in an alternate section INFORMATION SOURCE (unrecogn ized section and content) DATE CREATED AUTHOR 06/27/2024 [facility] DATE CREATED AUTHOR AUTHOR'S ORGANIZ ATION 09/02/2024 [facility] DATE CREATED AUTHOR AUTHOR'S ORGANIZ ATION 09/03/2024 [facility] FOR RECORDS PERTAINING TO PATIENTS WHO ARE OR HAVE BEEN ENROLLED IN A CHEMICAL DEPENDENCY/SUBSTANCEABUSE PROGRAM, SOME INFORMATION MAY BE OMITTED. This clinical summary was aggregated from multiple sources. Caution should be exercised in using it in the provision of clinical care. This summary normalizes information from multiple sources, and as a consequence, information in this document may materially change the coding, format and clinical context of patient data. In addition, data may be omitted in some cases. CLINICAL DECISIONS SHOULD BE BASED ON THE PRIMARY CLINICAL RECORDS. [employer] provides no warranty or guarantee of the accuracy or completeness of information in this document.
--- NOTE | 2024-09-13 18:44 | STRESSREP ---
Stress Test Report Pharmacologic myocardial perfusion stress test. 78-year-old male with a history of ventricular tachycardia Resting EKG demonstrates normal sinus rhythm with a rate of 72 bpm. Resting blood pressure is 160/98 mmHg. 0.4 mg of regadenoson was infused per usual protocol followed by rapid intravenous saline flush injection. Continuous EKG monitoring was performed. The maximum heart rate was 101 bpm which was 71% of max impacted heart rate the maximum workload was 1 metabolic equivalent. At rest there were no ST or T wave changes noted to suggest ischemia and at peak infusion nonspecific ST changes were noted which did not meet the criteria for ischemia. No clinical angina is noted. The final blood pressure was 160/98 mmHg. Myocardial perfusion protocol. 11.6 mCi of technetium 99m sestamibi was injected at rest. 0.4 mg of regadenoson was infused per usual protocol. At peak infusion 33.1 mCi of technetium 99m sestamibi was injected stress images were obtained stress and rest images were reconstructed and compared in the short axis vertical long and horizontal long axis. Gated images were also obtained. Perfusion SPECT analysis: Review of the stress images demonstrate normal uptake of tracer noted in all areas of the myocardium. The resting images similar demonstrated normal uptake of tracer noted in all areas of the myocardium. No areas of reversibility are noted to suggest ischemia and no previous infarct is noted. Gated SPECT analysis: The gated ejection fraction is 86%. Conclusion: Normal pharmacologic myocardial perfusion stress test. Preserved ejection fraction.
== END | disposition home or self-care (01) ==
LOC: CVS 07:23
PROVIDERS: PCP Family Medicine; Referring Provider Nurse Practitioner Gerontology; Visit Provider Nurse Practitioner Gerontology
DX: I47.20 Ventricular tachycardia, unspecified (principal); R94.31 Abnormal electrocardiogram [ECG] [EKG]
CPT/HCPCS: 78452; 93017; A9500; A4216; J2785